=== PATIENT | male | born 1950 | race Caucasian/White ===

== ENCOUNTER 2023-11-19 20:53 | Emergency (ER) | payer OTHER, SELFPAY ==
[2023-11-19 20:56] VITALS: BP 108/62
[2023-11-19 20:57] VITALS: BP 108/62
[2023-11-19 21:05] VITALS: BMI 22.0
[2023-11-19 21:13] LABS: % Basophils 0.6 % (0-2); % Eosinophils 0.1 % (0-6); % Lymphocytes 17.6 % (20.5-51.1); % Monocytes 7.8 % (1.7-9.3); % Neutrophils 72.9 % (42.2-75.2); Absolute Basophils 0.1 10^3/uL (0-0.2); Absolute Immature Granulocytes 0.1 10^3/uL (0-0.05); Absolute Lymphocytes 1.8 10^3/uL (1.2-3.4); Absolute Monocytes 0.8 10^3/uL (0.1-0.6); Absolute Neutrophils 7.3 10^3/uL (1.4-6.5); Hematocrit 32.5 % (39.0-52.0); Hemoglobin 11.3 g/dL (13.0-18.0); Mean Corp Hgb Conc. 34.8 g/dL (33.0-37.0); Mean Platelet Volume 9.2 fL (7.4-10.4); Nucleated Red Blood Cells % 0 % (-); Platelet Count 564 10^3/uL (130-400); Red Blood Cell Count 3.42 10^6/uL (4.70-6.10); Red Cell Dist. Width 14.2 % (11.5-14.5); White Blood Cell Count 10.1 10^3/uL (4.8-10.8)
[2023-11-19 21:28] LABS: ALT (SGPT) 258 U/L (0-50); AST (SGOT) 140 U/L (17-59); Alkaline Phosphatase 519 U/L (38-126); Blood Urea Nitrogen 19 mg/dl (9-20); Calcium 9.4 mg/dl (8.4-10.2); Carbon Dioxide 29 mmol/L (22-30); Chloride 96 mmol/L (98-107); Estimated Creatinine Clearance 83 ml/min; Glucose 87 mg/dl (70-99); Sodium 132 mmol/L (135-145); Total Bilirubin 1.5 mg/dl (0.2-1.3); Total Protein 6.6 g/dl (6.3-8.2); eGFR > 60.00
[2023-11-19 21:44] VITALS: BP 104/71
--- NOTE | 2023-11-19 21:49 | ED.GENMED ---
History of Present Illness
General
Chief Complaint: Anal/Rectal Problem
Source: patient
Exam Limitations: none
Time Seen by Provider: 11/19/23 21:32
Travel History
Have you had any contact with someone who has COVID-19?: No
Do you have any symptoms of coronavirus? Fever > 100 degrees, chills, cough, shortness of breath, sore throat, loss of taste or smell, muscle aches, or headache?: No
History of Present Illness
History of Present Illness:
See MDM
Past History
Past History
ED Past Medical History: Cancer
ED Past Surgical History: Other (hernia)
Social History
Tobacco: Smoker
Alcohol: None
Phy Exam
Physical Exam
Physical Exam:
See MDM
Course
Orders/Labs/Results
Orders:
Orders
11/19/23 21:08
CMP [Comprehensive Metabolic Panel] Urgent
Complete Blood Count/With Diff Urgent
11/19/23 21:46
CT Abd/pelvis W Iv Cont Urgent
Comment:
Reason For Exam: rectal pain, constipated, active lung cancer
HYDROmorphone [Dilaudid] 0.5 mg IV NOW STA
Ketorolac [Toradol] 30 mg IV NOW STA
11/20/23 00:29
Ketorolac [Toradol] 15 mg IV NOW STA
Magnesium Citrate [Citroma] 300 ml PO ONCE ONE
11/20/23 00:30
Ketorolac [Toradol] 15 mg .ROUTE .STK-MED ONE
Magnesium Citrate [Citroma] 300 ml .ROUTE .STK-MED ONE
Abnormal Lab Results
11/19/23
21:08
RBC 3.42 L 10^6/uL
(4.70-6.10)
Hgb 11.3 L g/dL
(13.0-18.0)
Hct 32.5 L %
(39.0-52.0)
MCV 95.0 H fL
(80.0-94.0)
MCH 33.0 H pg
(27.0-31.0)
Plt Count 564 H 10^3/uL
(130-400)
Abs Immat Gran (auto) 0.1 H 10^3/uL
(0-0.05)
Absolute Neuts (auto) 7.3 H 10^3/uL
(1.4-6.5)
Absolute Monos (auto) 0.8 H 10^3/uL
(0.1-0.6)
Immature Gran % 1.0 H %
(0-0.5)
Lymphocytes % 17.6 L %
(20.5-51.1)
Sodium 132 L mmol/L
(135-145)
Chloride 96 L mmol/L
(98-107)
Total Bilirubin 1.5 H mg/dl
(0.2-1.3)
AST 140 H U/L
(17-59)
ALT 258 H U/L
(0-50)
Alkaline Phosphatase 519 H U/L
(38-126)
11/19/23 21:08
11/19/23 21:08
Vital Signs
Initial and Last Documented VS:
Initial Vital Signs
Pulse BP Pulse Ox
83 108/62 96
11/19/23 20:56 11/19/23 20:56 11/19/23 20:56
Last Documented Vital Signs
Temp Pulse Resp BP Pulse Ox
98.0 F 70 16 107/67 96
11/19/23 20:57 11/19/23 22:30 11/19/23 22:12 11/19/23 22:30 11/19/23 22:30
MDM/Problems Addressed
Differential Diagnosis Includes:
HPI and MDM Narrative:
73-year-old male presenting with rectal pain and intermittent constipation. He is currently on immunotherapy for active lung cancer. He is followed at [place]. Patient states the rectal pain has been going on 'for some while'. It appears to be
going on for months.
Rectal exam performed. No anal fissure. No stool in the rectal vault. Given his active cancer and his pain, will obtain CT
Physical exam
General: Weak and frail
HEENT: protecting airway
Neck: appears supple
CV: No evidence of cyanosis
Resp: No accessory muscle use
Abd: Non-distended and nontender
Rectal: No fissure. Mild small external hemorrhoids. No thrombosis. No stool palpated
Extremities: No deformities
Neuro: alert
Psych: Normal affect
Skin: Intact
Problems Addressed including Acute and Chronic Conditions affecting care:
1. Rectal pain
Acuity: acute
Prognosis: stable
Details: Likely in the setting of constipation from medication side effect. Given his active cancer, will obtain CT to rule out metastasis
2. Constipation
Acuity: acute
Prognosis: stable
Details: Will start magnesium citrate
Updates
CT negative for infectious or surgical pathology. There is constipation noted without evidence of stercoral colitis. Because the constipation appears to be in the ascending and transverse colon, enema will not help. Patient given dose of
magnesium citrate
Differential Diagnosis (but not limited to): Constipation, rectal abscess, metastasis
Testing considered: Abdominal x-ray
Drug therapy (if applicable): OTC meds, please see d/c instruction regarding Rx drugs
Amount and/or Complexity of Data Reviewed
Clinical info obtained from: Patient
External data reviewed: N/A
Labs I independently reviewed (but not limited to): White blood cell count normal, LFT elevation
Radiology: The CT scan was personally and independently reviewed. In addition, official CT report reviewed.
Pulse Ox: not hypoxic
EKG independently reviewed: N/A
Carton Wrapper: N/A
Critical Care: N/A
Risk of Complication:
Social Determinants of health: Good social support
Discussed with other providers: N/A
Escalation of Care includes Admit/Obs: After being observed in the Emergency Department, pt stable for discharge.
Occasional wrong word or 'sound a like' substitutions may have occurred due to the inherent limitations of voice recognition software. Read the chart carefully and recognize, using context, where substitutions have occurred.
*Critical Care Note
Total Time (30-74mins, 75-104mins- exclusive of procedures): Not Applicable
ED Attending Note
-
Portions of this chart may have been created with voice recognition software.� Occasional wrong word or��sound alike� substitutions may have occurred due to the inherent limitations of voice recognition software.
Discharge Plan
Departure
Patient Disposition: Home (Routine Discharge)
Date of Disposition: 11/20/23
Time of Disposition: 00:35
Patient with high blood pressure during this ER visit?: No
Discharge Problem:
Constipation
Instructions: Constipation, Adult (DC)
Prescriptions:
No Action
acetaminophen 325 MG tablet
650 mg PO Q4HPRN PRN (Reason: mild pain/RIVER/temp> 100.4F) 0RF
polyethylene glycol 3350 17 GRAMS powder in packet
17 grams PO DAILY 0RF
tamsulosin 0.4 MG capsule
0.4 mg PO DAILY Qty: 30 0RF
phenazopyridine 100 MG tablet
100 mg PO Q8 Qty: 90 0RF
sulfamethoxazole-trimethoprim 1 TABLET tablet
1 tab PO BID Qty: 22 0RF
Referrals:
NONE,* [Family Provider] -
Activity Restrictions/Additional Instructions:
Please return for any worsening symptoms.
You may return at any time if you have further concerns.
Please follow up with your doctor at the first available appointment, preferably this week.
If your constipation continues despite MiraLAX and magnesium citrate, please talk to your doctor about possibly starting lactulose.
Please increase your water intake.
Thank you for choosing [facility].
Interventions
Interventions:
*Risk Screen - Suicide Last Done: 11/19/23 21:05
*General Assessment Last Done: 11/19/23 21:05
*Neglect/Abuse Screening Last Done: 11/19/23 21:05
*ED COVID-19 Vaccine History Last Done: 11/19/23 21:05
OX-Hbbnpe-Ptygpbzztr Assessment Last Done: 11/19/23 21:06
ED-Skin Assessment Last Done: 11/19/23 21:06
[2023-11-19] MEDS: TORADOL 30 MG IV (21:58)
[2023-11-19 22:00] VITALS: BP 111/71
[2023-11-19] MEDS: DILAUDID 0.5 MG IV (22:00)
[2023-11-19 22:30] VITALS: BP 107/67
[2023-11-20] MEDS: CITROMA 300 ML PO (00:30)
[2023-11-20] MEDS: TORADOL 15 MG IV (00:30)
== END 2023-11-20 01:45 | disposition home or self-care (01) ==
LOC: EMR 20:53
PROVIDERS: EMERGENCY PHYSICIAN Student in an Organized Health Care Education/Training Program
DX: K59.00 Constipation, unspecified (principal); C34.90 Malignant neoplasm of unspecified part of unspecified bronchus or lung; F17.200 Nicotine dependence, unspecified, uncomplicated
CPT/HCPCS: 99284; 96374; 96375; 96376; 74177; 80053; 85025; Q9967

== ENCOUNTER 2023-11-20 11:49 | Emergency (ER) | payer OTHER, SELFPAY ==
[2023-11-20 11:52] VITALS: BP 120/67
--- NOTE | 2023-11-20 12:27 | ED.GENMED ---
History of Present Illness
General
Chief Complaint: Abdominal Pain
Source: patient
Time Seen by Provider: 11/20/23 12:10
Nursing documentation reviewed up to this point in time: agreed with
Travel History
Have you had any contact with someone who has COVID-19?: No
Do you have any symptoms of coronavirus? Fever > 100 degrees, chills, cough, shortness of breath, sore throat, loss of taste or smell, muscle aches, or headache?: No
History of Present Illness
History of Present Illness:
Patient is a 73-year-old male with terminal lung cancer currently receiving immunotherapy at [facility] presents to the ER for generalized pain. Patient is with family friend who is power of litigation attorney associate. Patient arrives stating that he simply' cannot
do it anymore.' Family member reports ever since he started immunotherapy he has had worsening generalized pain. He is treated at [facility] by . Pt was seen here last night for constipation
Past History
Past History
ED Past Medical History: Cancer
ED Past Surgical History: Other (hernia)
Social History
Tobacco: Smoker
Alcohol: None
Phy Exam
General Physical Exam
General Presentation: no apparent distress
General age: appears stated age
General Skin: warm and dry
General Habitus: normal
General Mental: alert
General Hydration: dry mucous membranes
Neurological Exam
Neurological Exam: alert and oriented x3
Musculoskeletal Exam
Musculoskeletal Exam: full ROM
Skin Exam
Skin Exam: normal color and warm/dry
Psychiatric Exam
Psychiatric Exam: other (flat affect )
Course
Orders/Labs/Results
Orders:
Orders
11/20/23 12:25
IV Insert/Care/Rem.- Treatment PRN
0.9% Sodium Chloride 1000 ml [Nss] 1,000 ml IV BOLUS
Morphine Sulfate 4 mg IV NOW STA
11/20/23 12:34
Complete Blood Count/With Diff Urgent
Comprehensive Metabolic Panel Urgent
11/20/23 14:09
Morphine Sulfate 4 mg .ROUTE .STK-MED ONE
11/20/23 14:18
Vital Signs- Treatment ONCE
Frequency: Once
11/20/23 14:21
Morphine Sulfate 4 mg IV NOW STA
11/20/23 16:13
Lorazepam [Ativan] 0.5 mg IV NOW STA
11/20/23 18:04
Morphine Sulfate 4 mg .ROUTE .STK-MED ONE
11/20/23 18:24
Morphine Sulfate 2 mg IV NOW STA
Abnormal Lab Results
11/20/23
12:34
WBC 12.0 H 10^3/uL
(4.8-10.8)
RBC 3.60 L 10^6/uL
(4.70-6.10)
Hgb 11.8 L g/dL
(13.0-18.0)
Hct 33.7 L %
(39.0-52.0)
MCH 32.8 H pg
(27.0-31.0)
Plt Count 588 H 10^3/uL
(130-400)
Abs Immat Gran (auto) 0.1 H 10^3/uL
(0-0.05)
Absolute Neuts (auto) 9.4 H 10^3/uL
(1.4-6.5)
Absolute Monos (auto) 0.9 H 10^3/uL
(0.1-0.6)
Immature Gran % 0.8 H %
(0-0.5)
Neutrophils % 78.4 H %
(42.2-75.2)
Lymphocytes % 12.8 L %
(20.5-51.1)
Sodium 128 L mmol/L
(135-145)
Chloride 97 L mmol/L
(98-107)
Total Bilirubin 1.9 H mg/dl
(0.2-1.3)
AST 129 H U/L
(17-59)
ALT 227 H U/L
(0-50)
Alkaline Phosphatase 511 H U/L
(38-126)
11/20/23 12:34
11/20/23 12:34
Vital Signs
Initial and Last Documented VS:
Initial Vital Signs
Temp Pulse Resp BP Pulse Ox
97.6 F 97 16 120/67 97
11/20/23 11:52 11/20/23 11:52 11/20/23 11:52 11/20/23 11:52 11/20/23 11:52
Last Documented Vital Signs
Temp Pulse Resp BP Pulse Ox
98.3 F 71 18 109/78 96
11/20/23 16:00 11/20/23 18:39 11/20/23 16:00 11/20/23 18:30 11/20/23 18:33
MDM/Problems Addressed
Differential Diagnosis Includes:
not limited to: Intractable pain
MDM/Problems Addressed:
Patient is a 73-year-old male with terminal lung cancer being treated at [facility] with immunotherapy presents to the ER complaining of generalized pain all over. Patient was seen here last night for constipation. Family at bedside who is power of
litigation attorney associate reports patient's had off-and-on pain and was hospitalized at [facility] recently. I spoke with Dr. Wilkins concrete analyst at [facility] who was able to pull up patient's chart. Patient was seen at [facility] November 17. He is aware of this
complaint of generalized pain however they do not have an obvious cause. They did put him on steroids recently and he is on 60 mg of prednisone daily for elevated LFTs which they thought were due to immune therapy.
Patient was seen here last night for constipation. CAT scan does show moderate to large amount of stool within the right colon and transverse colon no other acute findings. pt denies abd pain , simply complains of pain 'from my toes up.' He denies
headache/nausea /vomiting.
1415: Reevaluation patient continues to complain of pain does not feel that he can go home because of intractable pain. He wants to discuss hospice and wants no further treatment for cancer.
1425: I did receive a repeat phone call from Dr. Wilkins at [facility] who does request that he be admitted to [facility] for pain management and also continued evaluation of this pain possible myositis related to immunotherapy. Patient will be
transferred to the [facility]. to [facility].
1610: I spoke with [facility] pt accepted to general medicine floor under Dr Alvarenga. awaiting bed assignment
*Critical Care Note
Total Time (30-74mins, 75-104mins- exclusive of procedures): Not Applicable
ED Attending Note
-
Portions of this chart may have been created with voice recognition software.� Occasional wrong word or��sound alike� substitutions may have occurred due to the inherent limitations of voice recognition software.
Discharge Plan
Departure
Patient Disposition: Acute Care Hospital
Date of Disposition: 11/20/23
Time of Disposition: 18:22
Patient with high blood pressure during this ER visit?: Yes
Condition: Fair
Covid-19: Not Applicable
Discharge Problem:
intractable pain, Acute hyponatremia
Prescriptions:
No Action
sulfamethoxazole-trimethoprim [Bactrim DS] 800-160 mg Tablet
1 tab PO MOWEFR
Rx Instructions:
FOR 45 DAYS STARTING ON 11/17/23 PER VANNESSA FERNANDEZ
pantoprazole [Protonix] 40 mg Tablet,Delayed Release (Dr/Ec)
40 mg PO DAILY
hydrocortisone 10 mg Tablet
20 mg PO DAILY
Rx Instructions:
ON HOLD UNTIL PREDNISONE DOWN TO 5MG IN 20 DAYS
hydrocortisone 10 mg Tablet
10 mg PO DAILY@1300
Rx Instructions:
FROM HOLD ON 11/17/23, UNTIL [facility] DECREASE PREDNISONE DOWN 5 MG IN 20 DAYS
levothyroxine [Synthroid] 112 mcg Tablet
112 mcg PO DAILY
sodium chloride 1,000 mg Tablet,Soluble
1,000 mg PO TID
Anoro Ellipta 62.5-25 mcg/actuation Blister With Device
1 inh INHALATION R DAILY
prednisone 10 mg Tablet
60 mg PO DAILY
Rx Instructions:
FOR 20 DAYS STARTING ON 11/17/23 PER [facility] WILL DECREASE ON NEXT APPOINTMENT, HOLD HYDROCOTISONE
albuterol sulfate 2.5 mg /3 mL (0.083 %) Solution For Nebulization
2.5 mg INHALATION R Q4HPRN PRN (Reason: SOB)
gabapentin 400 mg Capsule
400 mg PO HS
gabapentin 100 mg Capsule
200 mg PO DAILY
Referrals:
NONE,* [Family Provider] -
Hospital Transfer
Other hospital: [facility]
I certify that the patient requires transfer: Yes
Discussed case with accepting physician: Dr Alvarenga
Reason for transfer: specialties available
Interventions
Interventions:
*Risk Screen - Suicide Last Done: 11/20/23 11:52
*General Assessment Last Done: 11/20/23 11:52
*Neglect/Abuse Screening Last Done: 11/20/23 11:52
ED- Fall Risk Assessment Last Done: 11/20/23 12:50
*ED COVID-19 Vaccine History Last Done: 11/20/23 12:47
CT-Gxwidx-Krmmreanrh Assessment Last Done: 11/20/23 12:47
[2023-11-20] MEDS: MORPHINE SULFATE 4 MG IV ×2 (12:39→14:24)
[2023-11-20] MEDS: NSS 1000 IV (12:40)
[2023-11-20 12:42] VITALS: BMI 21.9
[2023-11-20 12:47] VITALS: BP 117/62
[2023-11-20 12:48] LABS: % Basophils 0.4 % (0-2); % Eosinophils 0.2 % (0-6); % Immature Granulocytes 0.8 % (0-0.5); % Lymphocytes 12.8 % (20.5-51.1); % Monocytes 7.4 % (1.7-9.3); % Neutrophils 78.4 % (42.2-75.2); Absolute Basophils 0.1 10^3/uL (0-0.2); Absolute Immature Granulocytes 0.1 10^3/uL (0-0.05); Absolute Lymphocytes 1.5 10^3/uL (1.2-3.4); Absolute Monocytes 0.9 10^3/uL (0.1-0.6); Absolute Neutrophils 9.4 10^3/uL (1.4-6.5); Hematocrit 33.7 % (39.0-52.0); Hemoglobin 11.8 g/dL (13.0-18.0); Mean Corpuscular Hgb 32.8 pg (27.0-31.0); Mean Corpuscular Volume 93.6 fL (80.0-94.0); Mean Platelet Volume 9.1 fL (7.4-10.4); Nucleated Red Blood Cells % 0 % (-); Platelet Count 588 10^3/uL (130-400); Red Cell Dist. Width 13.7 % (11.5-14.5)
[2023-11-20 13:01] LABS: ALT (SGPT) 227 U/L (0-50); AST (SGOT) 129 U/L (17-59); Albumin 3.8 g/dl (3.5-5.0); Alkaline Phosphatase 511 U/L (38-126); Blood Urea Nitrogen 18 mg/dl (9-20); Carbon Dioxide 24 mmol/L (22-30); Chloride 97 mmol/L (98-107); Estimated Creatinine Clearance 95 ml/min; Glucose 76 mg/dl (70-99); Potassium 4.1 mmol/L (3.5-5.1); Sodium 128 mmol/L (135-145); Total Bilirubin 1.9 mg/dl (0.2-1.3); Total Protein 6.4 g/dl (6.3-8.2); eGFR > 60.00
[2023-11-20 14:27] VITALS: BP 125/70
--- NOTE | 2023-11-20 16:08 | PHANOTE ---
MED REC NOTE- UNABLE TO FIND ECW RECORDS PATIENT USING VANNESSA FERNANDEZ, FRIEND ON FILE I CALLED AND SHE DROVE TO PATIENT HOUSE TO GET DISCHARGE PAPERWORK FROM 11/17/23, DISCHARGE PAPERWORK LIPITOR WAS STOP ON 11/17/23, HYDROCORTISONE IS ON HOLD UNTIL
PREDNISONE IS DECREASED TO 5MG IN 20 DAYS WHEN VANNESSA FERNANDEZ FOLLOW UP APPOINTMENT.
[2023-11-20] MEDS: ATIVAN 0.5 MG IV (16:25)
[2023-11-20 16:50] VITALS: BP 127/89
[2023-11-20 18:30] VITALS: BP 109/78
[2023-11-20] MEDS: MORPHINE SULFATE 2 MG IV (18:34)
== END 2023-11-20 19:10 | disposition short-term general hospital (02) ==
LOC: EMR 11:49
PROVIDERS: Nurse Practitioner; EMERGENCY PHYSICIAN Emergency Medicine
DX: R52 Pain, unspecified (principal); E87.1 Hypo-osmolality and hyponatremia; C34.90 Malignant neoplasm of unspecified part of unspecified bronchus or lung; F17.200 Nicotine dependence, unspecified, uncomplicated
CPT/HCPCS: 99283; 96374; 96375; 96376; 96361; 80053; 85025

== ENCOUNTER → 2023-12-20 07:40 | Outpatient (REF) | payer OTHER, SELFPAY | LOC: EMG 07:40 | PROVIDERS: ATTENDING PHYSICIAN Nurse Practitioner Adult Health; FAMILY PHYSICIAN Physician Assistant | DX: G56.02 Carpal tunnel syndrome, left upper limb (principal); G62.9 Polyneuropathy, unspecified; R20.0 Anesthesia of skin | CPT/HCPCS: 95886; 95913 ==

== ENCOUNTER 2023-12-21 17:16 | Emergency (ER) | payer OTHER, SELFPAY ==
[2023-12-21 17:27] VITALS: BP 126/79
[2023-12-21 17:55] LABS: % Basophils 0.2 % (0-2); % Eosinophils 0.1 % (0-6); % Immature Granulocytes 4.1 % (0-0.5); % Lymphocytes 9.7 % (20.5-51.1); % Monocytes 3.6 % (1.7-9.3); % Neutrophils 82.3 % (42.2-75.2); Absolute Immature Granulocytes 0.5 10^3/uL (0-0.05); Absolute Lymphocytes 1.2 10^3/uL (1.2-3.4); Absolute Monocytes 0.5 10^3/uL (0.1-0.6); Absolute Neutrophils 10.3 10^3/uL (1.4-6.5); Hematocrit 35.5 % (39.0-52.0); Hemoglobin 12.2 g/dL (13.0-18.0); Mean Corp Hgb Conc. 34.4 g/dL (33.0-37.0); Mean Corpuscular Hgb 33.1 pg (27.0-31.0); Mean Corpuscular Volume 96.2 fL (80.0-94.0); Mean Platelet Volume 8.5 fL (7.4-10.4); Nucleated Red Blood Cells % 0 % (-); Platelet Count 378 10^3/uL (130-400); Red Blood Cell Count 3.69 10^6/uL (4.70-6.10); Red Cell Dist. Width 14.3 % (11.5-14.5); White Blood Cell Count 12.5 10^3/uL (4.8-10.8)
[2023-12-21 18:17] LABS: ALT (SGPT) 19 U/L (0-50); AST (SGOT) 27 U/L (17-59); Albumin 4.1 g/dl (3.5-5.0); Alkaline Phosphatase 72 U/L (38-126); Blood Urea Nitrogen 21 mg/dl (9-20); Calcium 9.9 mg/dl (8.4-10.2); Carbon Dioxide 29 mmol/L (22-30); Chloride 100 mmol/L (98-107); Glucose 106 mg/dl (70-99); Potassium 4.6 mmol/L (3.5-5.1); Sodium 135 mmol/L (135-145); Total Bilirubin 0.6 mg/dl (0.2-1.3); Total Protein 6.7 g/dl (6.3-8.2); eGFR > 60.00
--- NOTE | 2023-12-21 19:13 | ED.GENMED ---
History of Present Illness
General
Chief Complaint: Dizziness
Source: patient
Exam Limitations: none
Time Seen by Provider: 12/21/23 18:52
Nursing documentation reviewed up to this point in time: agreed with
Travel History
Have you had any contact with someone who has COVID-19?: No
Do you have any symptoms of coronavirus? Fever > 100 degrees, chills, cough, shortness of breath, sore throat, loss of taste or smell, muscle aches, or headache?: No
History of Present Illness
History of Present Illness:
73-year-old mal with past medical history of COPD, melanoma with lung metastasis (follows at [facility]), hypothyroidism who presents to the emergency room for evaluation of shortness of breath, coughing, wheezing. Patient reports
onset of symptoms a week ago and have been constant and progressive since then. Coughing seems to be worse at night. He reports symptoms are not improving despite using Mucinex at home as well as regular home nebulizer treatments. He reports
congestion in his chest but denies any chest pain�describes a sensation of phlegm that he cannot expectorate. He denies any fevers or chills. Has not noticed any edema in his extremities. He also reports occasional lightheadedness over the past
week. He denies any other complaints. Notably he has been on a prolonged steroid taper for COPD he says today was his first day at the taper dose of 20 mg.
Past History
Past History
ED Past Medical History: Cancer
ED Past Surgical History: Other (hernia)
Social History
Tobacco: Smoker
Alcohol: None
Review of Systems
Review of Systems
All Other Systems: ROS reviewed and negative except as documented in HPI and ROS
Constitutional: Denies fever or chills
EENT: Denies sore throat or runny nose
Respiratory: Reports cough and trouble breathing
Cardiac: Denies chest pain or palpitations
ABD/GI: Denies abdominal pain, nausea or vomiting
: Denies flank pain
Musculoskeletal: Denies edema, neck pain or back pain
Neurological: Reports dizzy; Denies headache, weakness or numbness
Phy Exam
Physical Exam
Physical Exam:
General: Awake, alert, oriented x3; no acute distress
Head: Normocephalic, atraumatic
Eyes: Conjunctiva normal, EOMI
Throat: Airway intact, handling secretions
Neck: Trachea midline, supple without meningismus
Lungs: Normal respiratory rate and work of breathing, normal pulse ox on room air; there is diffuse bilateral wheezing and frequent hacking cough
Heart: Regular rate and rhythm, no murmurs, gallops, or rubs appreciated
Abd: Soft, non distended, nontender
Neuro: Cranial nerves grossly intact, speech fluid
Skin: no rash
Extremities: No edema in extremities, equal pulses in all extremities
Scores
Heart Failure Risk
Heart Failure Risk Score: Not Applicable
Heart Score for Chest Pain Patients
STEMI patient?: Not applicable
Withdrawal Assessment of Alcohol
Withdrawal Assessment Completed?: Not applicable
Course
Orders/Labs/Results
Orders:
Orders
12/21/23 17:27
Electrocardiogram (*1) Urgent
Reason for Study: Fatigue / Weakness
12/21/23 17:28
EKG- Treatment ONCE
12/21/23 17:50
Complete Blood Count/With Diff Urgent
Comprehensive Metabolic Panel Urgent
12/21/23 19:09
CR Chest - 2 Views Urgent
Comment:
Reason For Exam: sob
12/21/23 19:10
Ipratropium/Albuterol Sulfate [Duoneb] 3 ml INH R NOW STA
Prednisone [Deltasone] 30 mg PO NOW STA
Abnormal Lab Results
12/21/23
17:50
WBC 12.5 H 10^3/uL
(4.8-10.8)
RBC 3.69 L 10^6/uL
(4.70-6.10)
Hgb 12.2 L g/dL
(13.0-18.0)
Hct 35.5 L %
(39.0-52.0)
MCV 96.2 H fL
(80.0-94.0)
MCH 33.1 H pg
(27.0-31.0)
Abs Immat Gran (auto) 0.5 H 10^3/uL
(0-0.05)
Absolute Neuts (auto) 10.3 H 10^3/uL
(1.4-6.5)
Immature Gran % 4.1 H %
(0-0.5)
Neutrophils % 82.3 H %
(42.2-75.2)
Lymphocytes % 9.7 L %
(20.5-51.1)
BUN 21 H mg/dl
(9-20)
Creatinine 0.6 L mg/dL
(0.7-1.3)
Glucose 106 H mg/dl
(70-99)
12/21/23 17:50
12/21/23 17:50
Vital Signs
Initial and Last Documented VS:
Initial Vital Signs
Temp Pulse Resp BP Pulse Ox
36.4 C 95 18 126/79 94
12/21/23 17:27 12/21/23 17:27 12/21/23 17:27 12/21/23 17:27 12/21/23 17:27
Last Documented Vital Signs
Temp Pulse Resp BP Pulse Ox
36.4 C 95 18 126/79 97
12/21/23 17:27 12/21/23 17:27 12/21/23 17:27 12/21/23 17:27 12/21/23 19:57
MDM/Problems Addressed
Differential Diagnosis Includes:
COPD exacerbation, pneumonia, bronchitis, anemia, pneumothorax
MDM/Problems Addressed:
73-year-old male presents with cough, wheezing, shortness of breath, occasional lightheadedness over the past week. Vital signs normal, exam as above. Plan to place an IV check labs including a CBC and a CMP. Check a chest x-ray and EKG. Will
treat with a DuoNeb and provide additional steroid-he has been on steroids for COPD but tapering down. Will monitor closely reassess after the above.
Initial labs reviewed: CBC shows slight leukocytosis to 12.5 in the setting of known steroid use, stable anemia. CMP no clinically significant abnormalities. Awaiting results of chest x-ray.
Chest x-ray reviewed by me shows no pneumonia or pneumothorax or other acute pathology. Clinical reassessment after treatment here patient feeling better, wheezing improved. I spoke to his hematology/oncology physician at [place]�patient has
been on steroid taper for recent adverse reaction to immunotherapy. Okay with increasing steroids over the next few days and tapering back down to 20 mg daily. Patient is comfortable this plan. He wishes to be discharged at this point, does not
feel he needs to stay in the hospital; his respiratory rate, saturation on room air, work of breathing are all acceptable and he has had significant improvement in his wheezing on exam. I think he is stable for discharge with close outpatient
follow-up with plan to increase steroids as above. Spoke about return precautions all questions answered.
Chronic conditions affecting care:
COPD
*Radiology
Radiology exam reviewed: preliminary read by ED provider and radiology read reviewed
*Pulse Oximetry
Patient hypoxic: no
*EKG
Interpreted by ED Provider?: Yes
Heart Rate: 84
Rate: normal
Rhythm: sinus and PAC's
[place]: normal axis
Interval: normal interval
QRS Pattern: normal QRS
Ischemia: no ischemia
*Critical Care Note
Total Time (30-74mins, 75-104mins- exclusive of procedures): Not Applicable
Data Reviewed
Review of Other/Old Records Reveals: Labs and Records
Source: patient and records
ED Attending Note
-
Portions of this chart may have been created with voice recognition software.� Occasional wrong word or��sound alike� substitutions may have occurred due to the inherent limitations of voice recognition software.
Discharge Plan
Departure
Patient Disposition: Home (Routine Discharge)
Date of Disposition: 12/21/23
Time of Disposition: 20:26
Patient with high blood pressure during this ER visit?: No
Discharge Problem:
COPD exacerbation
Instructions: COPD Exacerbation, Adult ED
Prescriptions:
New
prednisone 10 mg tablet
10 mg PO DIRECTED Qty: 36 0RF
Rx Instructions:
Take 50 mg x3 days, 40 mg x 3 day, 30 mg x 3 day, then resume prior taper
No Action
sulfamethoxazole-trimethoprim [Bactrim DS] 800-160 mg Tablet
1 tab PO MOWEFR
Rx Instructions:
FOR 45 DAYS STARTING ON 11/17/23 PER VANNESSA FERNANDEZ
pantoprazole [Protonix] 40 mg Tablet,Delayed Release (Dr/Ec)
40 mg PO DAILY
hydrocortisone 10 mg Tablet
20 mg PO DAILY
Rx Instructions:
ON HOLD UNTIL PREDNISONE DOWN TO 5MG IN 20 DAYS
hydrocortisone 10 mg Tablet
10 mg PO DAILY@1300
Rx Instructions:
FROM HOLD ON 11/17/23, UNTIL VANNESSA FERNANDEZ DECREASE PREDNISONE DOWN 5 MG IN 20 DAYS
levothyroxine [Synthroid] 112 mcg Tablet
112 mcg PO DAILY
sodium chloride 1,000 mg Tablet,Soluble
1,000 mg PO TID
Anoro Ellipta 62.5-25 mcg/actuation Blister With Device
1 inh INHALATION R DAILY
prednisone 10 mg Tablet
60 mg PO DAILY
Rx Instructions:
FOR 20 DAYS STARTING ON 11/17/23 PER VANNESSA FERNANDEZ WILL DECREASE ON NEXT APPOINTMENT, HOLD HYDROCOTISONE
albuterol sulfate 2.5 mg /3 mL (0.083 %) Solution For Nebulization
2.5 mg INHALATION R Q4HPRN PRN (Reason: SOB)
gabapentin 400 mg Capsule
400 mg PO HS
gabapentin 100 mg Capsule
200 mg PO DAILY
Referrals:
UNKNOWN - PT NOT,INTERVIEWE [Family Provider] -
Activity Restrictions/Additional Instructions:
Thank you for visiting the Emergency Department at [facility].
1. Please schedule a follow up appointment as directed. Call first thing tomorrow morning to make an appointment.
2. If indicated, please take your medications as instructed and indicated on discharge paperwork.
3. If any of your symptoms do not improve, or persist, or become more severe within 6-12 hours, please return to the emergency department for further care.
4. Please return to the emergency department if you develop a headache, neck pain/stiffness, fever greater than 100.4F, chest pain, shortness of breath, persistent nausea, vomiting, slurred speech, difficulty walking, numbness/tingling, weakness,
signs of infection or any other symptoms that are worrisome to you.
Please call [phone] if you have any questions.
Interventions
Interventions:
*Risk Screen - Suicide Last Done: 12/21/23 17:27
*General Assessment Last Done: 12/21/23 17:27
*Neglect/Abuse Screening Last Done: 12/21/23 17:27
*ED COVID-19 Vaccine History Last Done: 12/21/23 18:33
ED- Neurological Assessment Last Done: 12/21/23 19:54
ED- Cardiac Assessment Last Done: 12/21/23 19:55
Discharge Date and Time
Print Language: TELUGU
[2023-12-21] MEDS: DUONEB 3 ML INH (19:48)
[2023-12-21] MEDS: DELTASONE PO (19:49)
[2023-12-21 19:52] VITALS: BP 124/85
[2023-12-21 20:00] VITALS: BP 136/86
[2023-12-21] MEDS: DELTASONE 30 MG PO (20:29)
== END 2023-12-21 20:49 | disposition home or self-care (01) ==
LOC: EMR 17:16
PROVIDERS: EMERGENCY PHYSICIAN Emergency Medicine
DX: J44.1 Chronic obstructive pulmonary disease with (acute) exacerbation (principal); F17.200 Nicotine dependence, unspecified, uncomplicated; E03.9 Hypothyroidism, unspecified
CPT/HCPCS: 99285; 94640; 71046; 80053; 85025; 93005

== ENCOUNTER 2024-03-04 05:45 | Inpatient (IN) | payer OTHER, SELFPAY ==
[2024-03-04] VITALS (15 sets, daily range): BP systolic 98–155; BP diastolic 56–90; BMI 24.6; BMI 25.4
--- NOTE | 2024-03-04 02:45 | EDRN ---
Addendum entered by Stefany Alfonso RN 03/04/24 05:04:
visitor at bedside is not patient's . she reports she is his friend of 30 years and she helps with his physical care. she reports pt has other friends to help with medications, getting around, and doctors appointments.
Original Note:
patient reports that pt was recently d/c from [facility] 2 days ago. per pt was there for lung ca treatment, needed to be admitted ICU there for alcohol withdrawal and was there for 30 days. no alcohol since d/c
[2024-03-04 02:53] LABS: % Basophils 0.4 % (0-2); % Eosinophils 0.1 % (0-6); % Immature Granulocytes 0.5 % (0-0.5); % Monocytes 3.9 % (1.7-9.3); % Neutrophils 76.1 % (42.2-75.2); Absolute Lymphocytes 1.5 10^3/uL (1.2-3.4); Absolute Monocytes 0.3 10^3/uL (0.1-0.6); Absolute Neutrophils 5.8 10^3/uL (1.4-6.5); Hematocrit 30.7 % (39.0-52.0); Hemoglobin 10.5 g/dL (13.0-18.0); Mean Corp Hgb Conc. 34.2 g/dL (33.0-37.0); Mean Corpuscular Hgb 31.7 pg (27.0-31.0); Mean Corpuscular Volume 92.7 fL (80.0-94.0); Mean Platelet Volume 9.9 fL (7.4-10.4); Nucleated Red Blood Cells % 0 % (-); Platelet Count 297 10^3/uL (130-400); Red Blood Cell Count 3.31 10^6/uL (4.70-6.10); Red Cell Dist. Width 13.1 % (11.5-14.5); White Blood Cell Count 7.6 10^3/uL (4.8-10.8)
[2024-03-04 03:16] LABS: ALT (SGPT) 14 U/L (0-50); AST (SGOT) 28 U/L (17-59); Albumin 4.1 g/dl (3.5-5.0); Blood Urea Nitrogen 14 mg/dl (9-20); Carbon Dioxide 26 mmol/L (22-30); Estimated Creatinine Clearance 68 ml/min; Glucose 195 mg/dl (70-99); Total Bilirubin 0.4 mg/dl (0.2-1.3); Total Protein 6.5 g/dl (6.3-8.2); eGFR > 60.00
[2024-03-04 03:18] LABS: COVID-19 Antigen Negative (Negative)
[2024-03-04 03:19] LABS: NT-proBNP 1290 pg/ml; Troponin I < 0.012 ng/ml
--- NOTE | 2024-03-04 03:24 | ED.GENMED ---
History of Present Illness
General
Chief Complaint: Breathing Problem
Source: patient, spouse and previous hospital records (Previous ED visit November of this year for COPD exacerbation)
Exam Limitations: none
Time Seen by Provider: 03/04/24 02:48
Nursing documentation reviewed up to this point in time: agreed with
History of Present Illness
History of Present Illness:
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
with lengthy course of oral steroids. He states prednisone was eventually titrated down and discontinued.
He does continue to smoke, currently vapes nicotine and apparently has issues with alcohol and was recently hospitalized at [facility] for 29 days for treatment of alcohol withdrawal syndrome. Discharged just 2 days ago and according to he has
remained sober over the past 2 days.
He have history of COPD, maintained on maintenance inhalers and uses albuterol nebulizer several times per day.
Currently on oral hydrocortisone 20 mg in the a.m., 10 mg in the afternoon.
Patient states he required supplemental oxygen for few days during initial hospital stay but oxygen was weaned to off and his pulse ox is generally in the mid to high 90s on room air.
Tonight however he got up out of bed to go to the bathroom and while walking to the bathroom developed significant headache as well as significant bilateral arm pain along with shortness of breath and was noted to be significantly hypoxic with
initial room air pulse ox in the 70s. With sitting and resting his pulse ox improved to the 80s.
He does report intermittent dry cough that is chronic and unchanged. He denies fever nor chills. He does note very mild bilateral lower extremity edema primarily ankles and feet but denies leg pain.
Pulse ox upon arrival 86%, has improved to 93/95% on 4 L nasal cannula.
Past History
Past History
ED Past Medical History: Cancer (Lung cancer), COPD, GERD and Other (Alcohol abuse/tobacco abuse)
ED Past Surgical History: Other (hernia)
Social History
Tobacco: Smoker
Alcohol: Chronic alcoholic
Drug: None
Personal:
Living: with family
Employment: Retired
Family History
Family History: Other (Noncontributory)
Phy Exam
Physical Exam
Physical Exam:
GENERAL: 73-year-old gentleman appears somewhat older than stated age, awake and alert, pleasant, appears in very mild distress. Mild resting tachypnea. Able to speak in full sentences. Nasal cannula oxygen in place. is accompanying.
EYE: anicteric
NECK: Supple, nontender, no meningismus, no significant adenopathy.
ENT: oral mucosa is moist. No rhinorrhea.
CARDIAC: Regular rhythm, mildly tachycardic at 110, no murmur.
LUNGS: Mild resting tachypnea, Rales right anterior lung jackson as well as mild Rales noted right lower lobe, otherwise clear to auscultation.
ABDOMEN: Soft, nondistended, without focal tenderness, normoactive BS.
NEUROLOGICAL: Alert and oriented x3, no focal neuro deficits.
SKIN: Warm and dry, normal color, skin intact. No rash.
MUSCULOSKELETAL: No clubbing or cyanosis. Trace pretibial edema bilateral lower legs. Peripheral pulses are full and equal b/l. No palpable tenderness.
PSYCH: Normal and appropriate interaction.
Scores
Heart Failure Risk
Heart Failure Risk Score: Yes
History of Stroke or TIA: No
History of intubation for respiratory distress: No
Heart rate on ED arrival >/= 110: Yes
SaO2 <90% on arrival on room air: Yes
HR >/=110 during 3min walk test (or too ill to perform test): Yes
ECG has acute ischemic changes: No
Urea >/=12mmol/L (BUN 33.6mg/dL): No
Serum CO2>/=35mmol/L: No
Troponin I or T elevated to [place] Level (0.4mg/dL): No
NT-proBNP >/=5,000ng/L (5,000pg/ml): No
HF Risk Score: 3
Admission Status: HIGH RISK 15.9% Consider SNF treatment or admission to hospital
Course
Orders/Labs/Results
Orders:
Orders
03/04/24 02:32
Electrocardiogram (*1) Urgent
Reason for Study: Other
Other Reason for Exam: Respiratory Distress
Cardiac Monitoring- Treatment ONCE
EKG- Treatment ONCE
IV Insert/Care/Rem.- Treatment PRN
CR Chest - 2 Views Urgent
Comment:
Reason For Exam: respiratory distress
O2 Therapy [RESP] Urgent
Titrate/Wean O2 to maintain O2 sat greater than (%): 93
Special Instructions: TO MAINTAIN CONTINUOUS O2 SATS >/= 93%
Pulse Ox/cont/shift [RESP] Urgent
Quantity: 1
Special Instructions: continuous pulse ox
03/04/24 02:36
Alcohol Urgent
COVID-19 Antigen Urgent
Source: Nasal Swab
Complete Blood Count/With Diff Urgent
Comprehensive Metabolic Panel Urgent
NT-proBNP Urgent
Troponin I Urgent
Influenza A+B Rapid Molecular Urgent
ALETHA Source: Nasal Swab
Specimen Description:
03/04/24 03:24
CT Chest Pe Study Urgent
Comment:
Reason For Exam: acute hypoxia, tachycardia
03/04/24 03:28
Lactic Acid Urgent
Blood Culture Urgent
ALETHA Source: Blood/Venous
Specimen Description:
03/04/24 04:19
Lorazepam [Ativan] 2 mg .ROUTE .STK-MED ONE
03/04/24 04:21
Lorazepam [Ativan] 0.5 mg IV NOW STA
03/04/24 04:30
0.9% Sodium Chloride 1000 ml [Nss] 2,300 ml IV NOW STA
Piperacillin/Tazo 4.5 Gram [Zosyn] 4.5 gram in 100 ml IV NOW
03/04/24 04:31
Lorazepam [Ativan] 2 mg .ROUTE .STK-MED ONE
03/04/24 04:33
Lorazepam [Ativan] 0.5 mg IV NOW STA
03/04/24 04:43
Add On- LAB Urgent
Tests Added?: alcohol
03/04/24 04:46
Acetaminophen 1000MG/100Ml [Ofirmev] 1,000 mg in 100 ml .ROUTE .STK-MED
03/04/24 04:49
Acetaminophen 1000MG/100Ml [Ofirmev] 1,000 mg IV NOW STA
Ipratropium/Albuterol Sulfate [Duoneb] 3 ml INH R NOW STA
03/04/24 05:30
Admit/Transfer Patient As Directed
Co-Sign Provider:
Level of Care: Inpatient admission
Assign to:: IMU- Intermediate Care
Physician / Group: [email or web address]
Diagnosis: Severe sepsis probably due to PNA/ acute hypoxic RF/ Lung CA
Reason for Hospitalization: Severe sepsis probably due to PNA/ acute hypoxic RF/ Lung CA
Expected length of stay greater than two midnights?: Yes
ELOS- Estimated Length of Stay in days: 5
I certify the patient meets the requirements for IP care: Yes
03/04/24 05:33
Code Status As Directed
Resuscitation Status: Full Code
03/04/24 Breakfast
Cholesterol Lowering
Cholesterol Lowering: Sodium, 2 Gram
Procalcitonin IN AM
PCT Algorithmm Indication: Sepsis
Flush (0.9% Sodium Chloride) [Flush (Nss)] See Dose Instructions IV PER PROTOCOL
03/04/24 06:13
Lactic Acid Q4H
Comment: repeat q4 hours x 4 or until less than 2 mmol/L
0.9% Sodium Chloride [Nss (Preservative Free)] See Protocol IV PRN PRN
Acetaminophen [Tylenol/Feverall] 650 mg RECTAL Q4HPRN PRN
Acetaminophen [Tylenol] 650 mg PO Q4HPRN PRN
Albuterol Nebs [Ventolin Nebules] 2.5 mg INH R Q4HPRN PRN
FOLic ACID [Folvite] 1 mg 0.9% Sodium Chloride 50 ml [Nss] 50 ml IV DAILYPRN
Lactated Ringers [Lr] 1,000 ml IV 80 mls/hr
Loperamide [Imodium] 2 mg PO QID PRN
Lorazepam [Ativan] 1 mg IV Q1HPRN PRN
Lorazepam [Ativan] 1 mg PO Q2HPRN PRN
Lorazepam [Ativan] 2 mg IV Q1HPRN PRN
Piperacillin/Tazo 3.375 Gram [Zosyn] 3.375 gram in 50 ml IV Q6H
03/04/24 06:13
Case Management Consult Once
Case Management Consult: Other
Comment: Substance abuse counseling
Consult Notification Routine
Specialty to Notify: Infectious Disease
DIETARY CONSULT Routine
Reason for Consult: Nutrition support, possible refeeding guidelines
INFECTIOUS DISEASE CONSULT Routine
Consulting Provider: Ade Canales
Was physician already notified: No
Reason for consult: Severe sepsis probably due to PNA/ acute hypoxic RF/ Lung CA
Urine Drug Abuse Screen Routine
Activity As Directed
Activity Level: Out of Bed-Early Mobility
Activity As Directed
Activity Level: With Assistance
Intake/ Output As Directed
Frequency: Per unit guidelines
Intake/ Output As Directed
Frequency: q12h
MSAS SCORE As Directed
MSAS Score 0-4: Repeat MSAS every 2 hours until 0-4 for three consecutive assessments, then every 4 hours x 48
hours.
MSAS Score 5-7: For MILD withdrawl symptoms. Repeat MSAS and RASS every 2 hours
MSAS Score 8-11: For MODERATE withdrawal symptoms. Repeat MSAS and RASS every 1 hour. Consider ICU or IMU
level of care.
MSAS Score > 11: For SEVERE withdrawal symptoms. Repeat MSAS and RASS every 1 hour. Notify provider, consider
ICU level of care.
MSAS Additional Instructions: If no improvement or no decrease in score from severe to moderate within 12
hours, consult psychiatry
MSAS Notify Provider: Notify provider if patient requires more than 10 mg of Lorazepam in eight hour period.
Obtain Records As Directed
Dates of Information to be Released: 02/08/24
Type of Information Requested: Discharge Summary
Vital Signs As Directed
Frequency: Per unit guidelines
Vital Signs As Directed
Frequency: Per unit guidelines
Weight As Directed
Frequency: Daily
Weight As Directed
Frequency: Once
Comment: on admission
Pt Eval And Treat Routine
Activity Level: With Assistance
DX Deep Vein Thrombosis Video Routine
03/04/24 08:00
FOLic ACID [Folvite] 1 mg PO DAILY
Gabapentin [Neurontin] 300 mg PO BID
Hydrocortisone [Cortef] 20 mg PO DAILY
Levothyroxine [Synthroid] 112 mcg PO DAILY
Pantoprazole [Protonix] 40 mg PO DAILY
Thiamine Injection 200 mg IV Q12
fluticasone furoate 1 inh INH DAILY
magnesium oxide 420 mg PO DAILY
umeclidinium-vilanterol [Anoro Ellipta] 1 inh INH R DAILY
03/04/24 10:13
Lactic Acid Q4H
Comment: repeat q4 hours x 4 or until less than 2 mmol/L
03/04/24 13:00
Hydrocortisone [Cortef] 10 mg PO DAILY@1300
03/04/24 14:13
Lactic Acid Q4H
Comment: repeat q4 hours x 4 or until less than 2 mmol/L
03/04/24 18:00
Enoxaparin Sodium [Lovenox] 40 mg SC QPM
03/04/24 18:13
Lactic Acid Q4H
Comment: repeat q4 hours x 4 or until less than 2 mmol/L
03/05/24 06:00
Complete Blood Count/With Diff IN AM
Comprehensive Metabolic Panel IN AM
03/07/24 08:00
Thiamine HCl [Vitamin B1] 100 mg PO BID
Abnormal Lab Results
03/04/24 03/04/24
02:36 03:28
RBC 3.31 L 10^6/uL
(4.70-6.10)
Hgb 10.5 L g/dL
(13.0-18.0)
Hct 30.7 L %
(39.0-52.0)
MCH 31.7 H pg
(27.0-31.0)
Neutrophils % 76.1 H %
(42.2-75.2)
Lymphocytes % 19.0 L %
(20.5-51.1)
Glucose 195 H mg/dl
(70-99)
Lactic Acid 3.0 H mmol/L
(0.7-2.0)
03/04/24 02:36
03/04/24 02:36
Vital Signs
Initial and Last Documented VS:
Initial Vital Signs
Temp Pulse Resp BP Pulse Ox
97.8 F 116 28 129/75 86
03/04/24 02:22 03/04/24 02:22 03/04/24 02:22 03/04/24 02:22 03/04/24 02:22
Last Documented Vital Signs
Temp Pulse Resp BP Pulse Ox
98.4 F 127 30 151/79 98
03/04/24 06:20 03/04/24 05:30 03/04/24 05:30 03/04/24 05:30 03/04/24 05:30
MDM/Problems Addressed
Differential Diagnosis Includes:
Acute hypoxic respiratory failure, concern for healthcare associated pneumonia, exacerbation of COPD. Due to recent lengthy hospitalization, tachycardia and hypoxia must also consider PE.
With significant hypoxia and complaints of bilateral arm pain while ambulating to the bathroom, must consider ACS.
Currently comfortable and pain-free at rest with nasal cannula oxygen in place.
Chronically maintained on steroids, must consider potential for adrenal insufficiency
Chronic conditions affecting care: COPD, Immunosuppressed, Cancer (Lung cancer) and Other (Recent lengthy hospitalization for alcohol withdrawal, discharged 2 days ago.)
*Radiology
Radiology exam reviewed: preliminary read by ED provider (Chest x-ray shows right middle lobe infiltrate which is new compared to previous film November 2023)
*Pulse Oximetry
Patient hypoxic: yes
*EKG
Interpreted by ED Provider?: Yes
Comparison EKG: changes noted (Unchanged from previous November 2023 save her heart rate has increased from 84 to now 112)
Rate: tachycardiac
Rhythm: sinus
Dunlap: normal axis
Interval: normal interval
QRS Pattern: normal QRS
Ischemia: no ischemia
*Scrap Breaker Interpretation
Rate: tachycardiac
Interpretation: abnormal
Rhythm: sinus
*Critical Care Note
Total Time (30-74mins, 75-104mins- exclusive of procedures): 35
comment:
Critical care statement: A total of 35 minutes of critical care time was provided for this patient. This includes management of unstable vital signs, evaluation of the patient at bedside, reviewing the patient's pertinent medical records, discussion
with consultants, review of old EKGs and review of pertinent medical records. This time with separate from time utilized to perform the aforementioned documented procedures
Update Note
Update Note:
Patient noted to be moderately tremulous and feels hot to touch, concern for acute rigors. Other consideration is alcohol withdrawal however with discharge from hospital just 2 days ago, recurrent alcohol withdrawal is much less likely.
Lactic acid is elevated at 3.0. Troponin is negative. BNP elevated at 1200 but chest x-ray consistent with right middle lobe pneumonia, no evidence of CHF.
He continues with sinus tachycardia but blood pressure remains stable.
He has been given IV Ativan for potential withdrawal, IV fluid bolus initiated as well as IV Zosyn for coverage of healthcare associated pneumonia.
Will give DuoNeb nebulizer and IV Tylenol.
Will admit to hospitalist service, ICU.
Awaiting CT angio of the chest.
ED Attending Note
-
Portions of this chart may have been created with voice recognition software.� Occasional wrong word or��sound alike� substitutions may have occurred due to the inherent limitations of voice recognition software.
Discharge Plan
Departure
Patient Disposition: Admit
Date of Disposition: 03/04/24
Time of Disposition: 05:02
Admit to: ICU
Admit to doctor: Esperanza
Presentation/result/management discussed w/ accepting MD/DO: Hospitalist
Condition: Serious
Discharge Problem:
HCAP (healthcare-associated pneumonia), Acute hypoxemic respiratory failure, SIRS (systemic inflammatory response syndrome), Acute lactic acidosis
Interventions
Interventions:
*Risk Screen - Suicide Last Done: 03/04/24 02:22
*General Assessment Last Done: 03/04/24 02:22
*Neglect/Abuse Screening Last Done: 03/04/24 02:22
*Nursing Disposition Last Done: 03/04/24 06:20
ED- Cardiac Assessment Last Done: 03/04/24 02:46
ED- Pulmonary Assessment Last Done: 03/04/24 02:46
Discharge Date and Time
Discharge Date/Time: 03/04/24 06:22
[2024-03-04 03:28] LABS: Calcium 9.2 mg/dl (8.4-10.2); Chloride 106 mmol/L (98-107); Sodium 141 mmol/L (135-145)
[2024-03-04] MEDS: ATIVAN 0.5 MG IV ×2 (04:21→04:34)
[2024-03-04] MEDS: NSS 2300 ML IV (04:34)
[2024-03-04] MEDS: DUONEB 3 ML INH (04:51)
[2024-03-04] MEDS: OFIRMEV 1000 MG IV (04:51)
[2024-03-04 05:05] LABS: Alcohol None Detected; Alkaline Phosphatase 61 U/L (38-126)
--- NOTE | 2024-03-04 05:23 | HPS.HSE ---
Family Physician
-
Family Physician: CÉSAR Castorena
Chief Complaint
-
POx 70 on RA, SoB
History of Present Illness
HPI
73M current smoker, ETOH use disorder HX COPD, Known to [facility] for HX Ca lung, postponed immunotherapy since August due to myositis, associated pain syndrome presumed ADES of immuno therapy s/p steroids Tx since August due to ADEs. Recently he
was admitted to [facility] for 29 days due to ETOH WDS. He was DC'd 2 days ago .
He came to ER for evaluation of RIVER, SoB and noted POX was 70s% on RA.
POx upon arrival was 86%, has improved to 93/95% on 4 L nasal cannula.
ROS
Chronic Intermittent cough - unchanged
Denied fevr and chills
Medical History
Past Medical History
Past Medical History: Reports Other
Additional Past Medical History:
Cancer (Lung cancer), COPD, GERD and Other (Alcohol abuse/tobacco abuse)
Past Surgical History: Reports Other (hernia repair )
Additional Past Surgical History:
hernia repair
Social History
Tobacco: Smoker
Alcohol: Chronic Alcoholic
Drug: None
Personal:
Living: With Family
Family History
Family History: Not pertinent
Allergies / Home Medications
Allergies reflects when Allergies were last updated in [employer].
Home Medications with original date entered in [employer]
Allergy/Medication List:
Allergies
Allergy/AdvReac Type Severity Reaction Status Date / Time
No Known Allergies Allergy Verified 03/04/24 02:22
Home Medications
albuterol sulfate 2.5 mg/3 mL (0.083 %) solution for nebulization 2.5 mg inhalation R Q4HPRN PRN SOB 11/20/23
hydrocortisone 10 mg tablet 10 mg PO DAILY@1300 11/20/23
hydrocortisone 10 mg tablet 20 mg PO DAILY 11/20/23
levothyroxine 112 mcg tablet (Synthroid) 112 mcg PO DAILY 11/20/23
pantoprazole 40 mg tablet,delayed release (Protonix) 40 mg PO DAILY 11/20/23
umeclidinium 62.5 mcg-vilanterol 25 mcg/actuation powdr for inhalation (Anoro Ellipta) 1 inh inhalation R DAILY 11/20/23
fluticasone furoate 100 mcg/actuation blister powder for inhalation 1 inh inhalation DAILY 03/04/24
gabapentin 300 mg capsule 300 mg PO BID 03/04/24
loperamide 2 mg capsule 2 mg PO QID PRN diarrhea 03/04/24
magnesium oxide 420 mg tablet 420 mg PO DAILY 03/04/24
thiamine HCl (vitamin B1) 100 mg tablet 100 mg PO DAILY 03/04/24
Review of Systems
-
Constitutional: Reports No Symptoms
EENT: Reports No Symptoms
Cardiac: Reports No Symptoms and See HPI
Abdomen/GI: Reports No Symptoms
: Reports No Symptoms
Musculoskeletal: Reports No Symptoms
Skin: Reports No Symptoms
Neurological: Reports No Symptoms
Endocrine: Reports No Symptoms
Hematologic/Lymphatic: Reports No Symptoms
Psych: Reports No Symptoms
Physical Exam
Vital Signs
Vital Signs
Temp Pulse Resp BP Pulse Ox
97.8 F 116 26 126/90 99
03/04/24 02:22 03/04/24 05:00 03/04/24 05:00 03/04/24 05:00 03/04/24 05:00
Physical Exam
General: Comfortable and Other (sleeping s/p ativan ); No Conversant
HEENT: NormoCephalic and Anicteric
Respiratory: Non Labored Respirations and Other (limited exam )
Cardiac: S1/S2 and Tachycardia
GI: Soft, Non Tender, Non Distended and Normal Bowel Sounds
Rectal: Deferred by Provider
Genito-urinary: Deferred by me
Musculoskeletal: No Edema
Skin: Warm and Dry; No Rash
Neuro: Other (sleeping s/p ativan )
Laboratory Results
-
03/04/24 02:36
03/04/24 02:36
Laboratory Results
Lactic Acid 3.0 mmol/L (0.7-2.0) H 03/04/24 03:28
Total Bilirubin 0.4 mg/dl (0.2-1.3) 03/04/24 02:36
AST 28 U/L (17-59) 03/04/24 02:36
ALT 14 U/L (0-50) 03/04/24 02:36
Alkaline Phosphatase 61 U/L (38-126) 03/04/24 02:36
Troponin I < 0.012 ng/ml 03/04/24 02:36
Data Reviewed
-
Diagnostic Radiology: Report Reviewed by me
Lab Data: Labs Reviewed by me
Old Records: Reviewed
Impression/Plan
-
Reviewed VS: Afebrile tachypneic RR 33 Tachycardic 130s BP 155/78 POx 94
Data
nl WCC
Hgb 10.5 - baseline 11-12
Unremarkable CMP
BG 195
LA 3
Unremarkable LFTs
NEG TPNI
proBNP 1290
Pending ETOH
NEG Covid NEG Flu A & B
BCx sent
EKG report:
SINUS TACHYCARDIA
CANNOT RULE OUT INFERIOR INFARCT , AGE UNDETERMINED
ABNORMAL ECG
WHEN COMPARED WITH ECG OF 21-DEC-2023 17:35,
PREMATURE ATRIAL COMPLEXES ARE NO LONGER PRESENT
NONSPECIFIC T WAVE ABNORMALITY NOW EVIDENT IN INFERIOR LEADS
CXR my view; suspect PNA at Rt ML
Pending CTC PE study
Last hospitalist admission: 07/16/20 - 07/18/20
Primary DX:
1. Sepsis and hematuria due to right ureterovesical junction obstructing stone, status post right ureteroscopy, laser
lithotripsy and basket extraction of the stone with a right JJ stent placement.
2. Bacteremia due to E coli.
ASSESSMENT & PLAN
Pending Rx reconciliation
Severe sepsis probably due to PNA at RML presumed HAP
Associated with acute hypoxic respiratory failure.
Currently comfortable and pain-free at rest with nasal cannula oxygen in place.
- Pending CTC PE study
- check PCT syn
- LR IVF in place of NS
- Empiric Zosyn
- BCx sent
- O2 supplement to keep POx > 93
- ID and Pul consult
HX Ca lung
Postponed immunotherapy since August due to myositis, associated pain syndrome presumed ADES of immunoRx s/p S/p prolonged course of steroids
- cont Gabapentin
- Current smoker
- Obtain records for [facility]
HX ETOH use disorder
Recently he was admitted to [facility] for 29 days due to ETOH WDS. He was DC'd 2 days ago .
- denied recent use of ETOH
- MSAS protocol and observe
HX COPD
- not on home O2
- add DuoNeb PRN
Hypothyroid: on LT4
DVT Px: LMWH
Code: Full code
IMU
[2024-03-04] MEDS: ZOSYN 100 IV (05:38)
[2024-03-04 07:15] LABS: Amphetamines Negative (Negative); Barbiturates Negative (Negative); Benzodiazepines Negative (Negative); Buprenorphine Negative (Negative); Cocaine Negative (Negative); Marijuana Positive (Negative); Methadone Negative (Negative); Methamphetamines Negative (Negative); Opiates Negative (Negative); Phencyclidine Negative (Negative); Tricyclic Antidepressants Negative (Negative)
[2024-03-04] MEDS: FLOVENT 44 MCG INHALER 2 PUFF INH ×2 (07:20→17:31)
[2024-03-04] MEDS: SPIRIVA RESPIMAT 2.5 MCG 2 PUFF INH (07:20)
[2024-03-04] MEDS: STRIVERDI RESPIMAT 2 PUFF INH (07:21)
[2024-03-04] MEDS: LR 1000 IV ×2 (07:35→20:11)
--- NOTE | 2024-03-04 08:10 | CON.ID ---
Consultation
-
Date/Time Consultation Requested: 03/04/24 6:13
Date/Time Consultation Performed: 03/04/24 8:11
Requesting Provider: Dr Mata
Performing Provider: Dr Canales
Reason for Consultation: Severe sepsis probably due to PNA/ acute hypoxic RF/ Lung CA
Chief Complaint / Past History
Chief Complaint
hypoxemia outpatient
History of Present Illness
Mr Chance is a 73 year old male with history of Lung Cancer (postponed immunotherapy since Aug due to myositis, on prednisone tpaer - unclear dose, hydrocortisone), COPD no on O2, current smoker, EtOH use disorder who presented here last night
for shortness of breath, outpatient pulse ox at 70% on room air. Has a chronic cough which is reportedly unchanged. No fevers or chills. Of note he was just discharged from [facility] after recent admission for EtOH withdrawal. Not responding
appropriately to questions, will only say 'quiet,' to me. History obtained by chart review.
Since arrival here he has been afebrile, bp stable, persistent tachycardia noted, tachypnea to the 20s, wbc 7.6, hgb 10.5, plt 297, L shift is noted, cr 1.0, lactic acid 3.0, t bili 0.4, ast 28, alt 14, alk pohs 61, bnp 1290, procalc sent and is
pending, UDS notable for THC , covid ag neg, CTA; no PE, diffuse infiltrates in the r lung, a single blood culture sent, sputum culture not yet ordered, flu swab negative, currently on zosyn. ID is consulted for assistance with management.
Past History
Additional Past Medical History:
Cancer (Lung cancer), COPD, GERD and Other (Alcohol abuse/tobacco abuse)
Additional Past Surgical History:
(hernia repair )
Allergy History:
No Known Allergies Allergy (Verified 03/04/24 02:22)
Medications Reviewed: Yes
Social History
Tobacco: Smoker
Alcohol: Chronic Alcoholic
Drug: None
Family History
Family History: Not Pertinent
Review of Systems
Review of Systems
General: Negative Fever or Chills
All systems: All other systems were reviewed and were negative
Vital Signs
Temp Pulse Resp BP Pulse Ox
98.4 F 110 22 151/79 93
03/04/24 06:20 03/04/24 07:27 03/04/24 07:27 03/04/24 05:30 03/04/24 07:27
Physical Exam
Physical Exam
Constitutional: Chronically Ill
Cardiovascular: Irregular Rate and S1/S2; Negative Murmur or Rub
Pulmonary: Clear and Symmetric; Negative Wheezes, Rales or Rhonchi
Gastrointestinal: Soft, Non Tender, Non Distended and Normal Bowel Sounds
Skin: Warm and Dry; Negative Rash or Jaundice
Lab / Diagnostic Study Results
03/04/24 02:36
03/04/24 02:36
Abs Immat Gran (auto) 0.0 10^3/uL (0-0.05) 03/04/24 02:36
Absolute Neuts (auto) 5.8 10^3/uL (1.4-6.5) 03/04/24 02:36
Absolute Lymphs (auto) 1.5 10^3/uL (1.2-3.4) 03/04/24 02:36
Absolute Monos (auto) 0.3 10^3/uL (0.1-0.6) 03/04/24 02:36
Absolute Basos (auto) 0.0 10^3/uL (0-0.2) 03/04/24 02:36
Immature Gran % 0.5 % (0-0.5) 03/04/24 02:36
Neutrophils % 76.1 % (42.2-75.2) H 03/04/24 02:36
Lymphocytes % 19.0 % (20.5-51.1) L 03/04/24 02:36
Monocytes % 3.9 % (1.7-9.3) 03/04/24 02:36
Eosinophils % 0.1 % (0-6) 03/04/24 02:36
Basophils % 0.4 % (0-2) 03/04/24 02:36
Lactic Acid 3.0 mmol/L (0.7-2.0) H 03/04/24 03:28
Microbiology Results
Micro:
03/04/24 03:28 Blood Culture - Pending
Blood/Venous
03/04/24 02:36 Influenza Types A & B (ALESSANDRA) - Final
Nasal Swab Negative for Influenza A & B, NAAT
Negative results must be combined with clinical observations
and patient history.
Nucleic Acid Amplification test (NAAT)performed on the
[employer] platform.
Assessment / Plan
Pulmonary Infiltrate
Lung Cancer
History of adverse drug reaction to immunotherapy
On outpatient steroids
- sputum culture if able to obtain one
- a single blood culture has been sent, if there is a fever over 100.5 orally then would send a second set, otherwise no further blood cultures indicated at this time
- covid/influenza negative
- agree with checking procalcitonin if negative then would stop antibiotics
- steroid management per primary team
- can continue zosyn at this moment, add doxycycline while following clinically, low threshold to stop antibiotics
- follow clinically
[2024-03-04 08:25] LABS: Lactic Acid 2.5 mmol/L (0.7-2.0)
[2024-03-04 08:43] LABS: Procalcitonin 0.66 ng/ml (0.0-0.25)
[2024-03-04] MEDS: THIAMINE INJECTION 200 MG IV ×2 (10:36→21:02)
[2024-03-04] MEDS: ATIVAN 1 MG PO (11:04)
[2024-03-04] MEDS: CORTEF 20 MG PO (11:05)
[2024-03-04] MEDS: SYNTHROID 112 MCG PO (11:05)
[2024-03-04] MEDS: PROTONIX 40 MG PO (11:06)
--- NOTE | 2024-03-04 11:10 | PTCARENOTE ---
pt awake, asking for bedpan and urinal. noted to have been incontinent when turned; then used urinal and voided 300ml. limited movement of upper and lower limbs. tachycardic to 130 with turning. pox dropping to 88% on 4L nc, increased to 6L and pox
recovering to 94%. resp rate 30 and markedly tremulous. MSAS 6. 1 mg po ativan given. pt swallowed with water without difficulty. oriented x 3. calm and answering simple questions appropriately with somewhat garbled speech. bed alarm activated. bed
in lowest position. continuing to closely monitor.
[2024-03-04] MEDS: ZOSYN 50 IV ×3 (12:04→23:42)
[2024-03-04 13:11] LABS: Lactic Acid 2.9 mmol/L (0.7-2.0)
--- NOTE | 2024-03-04 14:03 | CM ---
Consult received for substance abuse counseling. Called TROY Whitt) who advised he was busy and would call me back.
Will follow.
--- NOTE | 2024-03-04 14:04 | CM ---
Consult received for substance abuse counseling. Called TROY Whitt) who advised he was busy and would call me back.
Will follow.
[2024-03-04] MEDS: CORTEF 10 MG PO (14:49)
[2024-03-04] MEDS: FOLVITE 1 MG PO (14:49)
[2024-03-04] MEDS: VIBRAMYCIN 100 MG PO ×2 (14:49→21:01)
[2024-03-04] MEDS: NEURONTIN PO (14:49)
[2024-03-04] MEDS: TYLENOL 650 MG PO (15:25)
--- NOTE | 2024-03-04 15:26 | PTCARENOTE ---
MSAS 7 at this time; heart rate >120, pt mildly diaphoretic with tremors. ativan not appropriate at this time; RASS-2. pt is awakening briefly to ask for water and to tell me he has a headache, but then falls back to sleep. oral tylenol given for
headache in applesauce; pt falling asleep with pill in his mouth. continuing to monitor
--- NOTE | 2024-03-04 15:26 | W.PN.UPDATE ---
Update Note
Progress Note Update
Presenting with RIVER and SOB
Hypoxic to 70% on arrival to ED, increasing o2 demends
arf with hypoxia, possibly pna, procal pending. id following, continue antibiotics. pulm consulted as o2 requiriements are increasing
lung ca follows at [facility] currently not on treatment, immunotherapy postponed due to myositis
alcohol use disorder contineu thimaine and folate. ciwa/minds protocol.
copd maintain spo2 >88%-92%. continue mdi. no bronchospasms noted.
cxr
Diffuse interstitial and airspace opacity is demonstrated throughout the right hemithorax, most pronounced in the right mid to lower lung zone, consistent with pneumonia. Possible subtle infiltrate versus atelectasis at the left lung base.
ct chest
IMPRESSION:
Limited by motion degradation. No evidence of pulmonary embolism with confidence to the lobar level.
Diffuse pneumonia throughout the right lung. Mild right hilar adenopathy.
The examination was performed after-hours on an emergency basis, with initial preliminary interpretation provided by [facility].
[2024-03-04] MEDS: LOVENOX 40 MG SC (17:29)
[2024-03-04] MEDS: MAGNESIUM OXIDE 500 MG PO (17:30)
[2024-03-04 18:00] LABS: Lactic Acid 2.7 mmol/L (0.7-2.0)
--- NOTE | 2024-03-04 18:27 | PTCARENOTE ---
pt more alert and awake. speaking more clearly. complaining of 'pain all over', mostly hips and joints. heart rate improved to 1 teens. pox 96% on O2 6L nasal canula. He states he has neuropathy in both hands. Requiring to be fed; unable to bend
fingers. Swallowing without difficulty. continuing to monitor
[2024-03-04] MEDS: NEURONTIN 300 MG PO (21:01)
[2024-03-04 21:16] LABS: Lactic Acid 1.9 mmol/L (0.7-2.0)
[2024-03-05] VITALS (12 sets, daily range): BP systolic 99–138; BP diastolic 67–88; PULSE 101–110; O2SAT 95; BMI 25.7
[2024-03-05] MEDS: LR 1000 IV ×2 (05:13→17:33)
[2024-03-05] MEDS: SYNTHROID 112 MCG PO (05:14)
[2024-03-05] MEDS: ZOSYN 50 IV ×4 (05:14→23:53)
[2024-03-05 05:23] LABS: Hematocrit 29.5 % (39.0-52.0); Hemoglobin 9.9 g/dL (13.0-18.0); Mean Corp Hgb Conc. 33.6 g/dL (33.0-37.0); Mean Corpuscular Hgb 31.5 pg (27.0-31.0); Mean Corpuscular Volume 93.9 fL (80.0-94.0); Mean Platelet Volume 10.4 fL (7.4-10.4); Platelet Count 264 10^3/uL (130-400); Red Blood Cell Count 3.14 10^6/uL (4.70-6.10); Red Cell Dist. Width 13.2 % (11.5-14.5); White Blood Cell Count 16.9 10^3/uL (4.8-10.8)
[2024-03-05 06:00] LABS: ALT (SGPT) 11 U/L (0-50); AST (SGOT) 23 U/L (17-59); Albumin 2.8 g/dl (3.5-5.0); Alkaline Phosphatase 59 U/L (38-126); Blood Urea Nitrogen 17 mg/dl (9-20); Calcium 8.2 mg/dl (8.4-10.2); Carbon Dioxide 27 mmol/L (22-30); Chloride 105 mmol/L (98-107); Estimated Creatinine Clearance 55 ml/min; Glucose 89 mg/dl (70-99); Potassium 4.1 mmol/L (3.5-5.1); Sodium 139 mmol/L (135-145); Total Bilirubin 0.4 mg/dl (0.2-1.3); Total Protein 4.9 g/dl (6.3-8.2); eGFR > 60.00
--- NOTE | 2024-03-05 06:19 | CON.PUL ---
Consultation
Consultation Request
Date/Time Consultation Requested: 03/04
Date/Time Consultation Performed: 03/05
Reason for Consultation: Hypoxia
Medical History
-
History of Present Illness:
History obtained from the chart, reviewing hospital records and reviewing outpatient records. Patient is a 73-year-old male with complex medical history including metastatic melanoma treated at [facility]. Patient also has been on immunotherapy,
complicated by myositis requiring steroids in the past. He was recently discharged from [facility], hospitalized for 1 month. He cannot recall the details but had respiratory issues in the beginning but cannot recall the details at the end of his
hospital stay, although medical records suggest he was hospitalized for alcohol withdrawal. He is not on oxygen therapy at home. He felt well yesterday, walk through the grocery store without difficulty, usually walks with a cane. He woke up at
1:00 in the morning, felt shortness of breath, general aches, headache, chest pain, arm pain, and called the ambulance. Upon arrival to [facility], afebrile, pulse 116, breathing at 28, blood pressure 129/75, 86%. ED records suggest the
saturation was in the 70s when ambulance arrived. Per ED, patient had mild tachypnea with crackles at the right base. CT chest was obtained to rule out PE. Patient was given antibiotics, IV fluids, Ativan, nebulized therapy and admitted to for
hypoxia, possible pneumonia. This morning, patient states he is feeling 'much better'.
He denies difficulty swallowing or choking, nausea, emesis, falls however not sure how accurate his history is.
During my evaluation, patient is not forthcoming. He denied any smoking, vaping, marijuana, alcohol. He states he lives alone. However medical records suggest that he continues to vape, smoke and drink alcohol and apparently lives with his .
.
PMH: History of melanoma metastatic to the chest wall. He specifically denied lung cancer. History of COPD, GERD, hernia repair, thyroid disease, kidney stones. Outpatient records suggest heme positive stool in the past
Past Medical History
Past Medical History: None (See above)
Past Surgical History: None ( see above)
Social History
Tobacco: Smoker (Has [id number] history of smoking, likely ongoing although patient denies. Also vapes)
Alcohol: Chronic Alcoholic (Records suggest alcoholism although patient denied it to me. He was apparently recently hospitalized at [facility] for alcohol withdrawal)
Drug: None
Personal: Single (Radha� apparently many years ago. She was an alcoholic?)
Living: Alone
Employment: Employed (Still works, has been working with [employer] for 40+ years)
Family History
Family History: Other (Father at 48, mother at 84. He cannot recall details. He has 2 siblings who , unclear reasons. He does not keep in touch with his children)
Allergies / Home Medications
Allergies
Allergy/AdvReac Type Severity Reaction Status Date / Time
No Known Allergies Allergy Verified 03/04/24 02:22
Home Medications
�Medication �Instructions �Recorded �Confirmed �Last Taken �Type
albuterol sulfate 2.5 mg/3 mL 2.5 mg inhalation R Q4HPRN PRN SOB 11/20/23 03/04/24 Unknown History
(0.083 %) solution for nebulization
hydrocortisone 10 mg tablet 10 mg PO DAILY@1300 11/20/23 03/04/24 Unknown History
Anti-Inflammatory
hydrocortisone 10 mg tablet 20 mg PO DAILY Anti-Inflammatory 11/20/23 03/04/24 Unknown History
levothyroxine 112 mcg tablet 112 mcg PO DAILY Thyroid 11/20/23 03/04/24 Unknown History
(Synthroid)
pantoprazole 40 mg tablet,delayed 40 mg PO DAILY Gastrointestinal 11/20/23 03/04/24 Unknown History
release (Protonix) Issue
umeclidinium 62.5 mcg-vilanterol 1 inh inhalation R DAILY 11/20/23 03/04/24 Unknown History
25 mcg/actuation powdr for Lung/Breathing Issues
inhalation (Anoro Ellipta)
fluticasone furoate 100 1 inh inhalation DAILY 03/04/24 03/04/24 Unknown History
mcg/actuation blister powder for Lung/Breathing Issues
inhalation
gabapentin 300 mg capsule 300 mg PO BID Neurological 03/04/24 03/04/24 Unknown History
Condition
loperamide 2 mg capsule 2 mg PO QID PRN diarrhea 03/04/24 03/04/24 Unknown History
magnesium oxide 420 mg tablet 420 mg PO DAILY Electrolyte 03/04/24 03/04/24 Unknown History
Repletion
thiamine HCl (vitamin B1) 100 mg 100 mg PO DAILY Supplement 03/04/24 03/04/24 Unknown History
tablet
Review of Systems
-
All other systems: Negative unless noted
Vitals / Labs / Diagnostic Testing
Vital Signs
Temp Pulse Resp BP Pulse Ox
98.3 F 89 21 127/88 100
03/05/24 03:33 03/05/24 06:01 03/05/24 06:01 03/05/24 04:00 03/05/24 06:01
Lab Data
03/05/24 04:28
03/05/24 04:28
Microbiology
03/04/24 03:28 Blood/Venous Blood Culture - Preliminary
No Growth in 24 hours- Final report to follow
03/04/24 02:36 Nasal Swab Influenza Types A & B (ALESSANDRA) - Final
Negative for Influenza A & B, NAAT
Negative results must be combined with clinical observations
and patient history.
Nucleic Acid Amplification test (NAAT)performed on the
[employer] platform.
Diagnostic Testing:
Physical Exam
-
HEENT: Normocephalic, Anicteric and Other (Poor dentition)
Cardiovascular: S1/S2, Regular Rhythm (Tachycardic), Murmur (n), Rub (n), Peripheral Edema (Trace edema right greater than left) and Calf Tenderness (n)
Respiratory: Wheeze (n), Rales (Crackles throughout right lung), Rhonchi (n) and Non-Labored Respirations
GI: Soft, Non Distended and Non Tender
Neurology: Awake, Alert, Oriented, No Motor Deficits (Able to sit up without assistance) and Tremors (Tremulous)
Skin: Other (No clubbing, cyanosis)
General: Comfortable (Conversant)
Assessment
-
73-year-old male with complex medical history including metastatic melanoma, status postsurgical resection on immunotherapy, held due to recent myositis requiring steroids, COPD, possible adrenal insufficiency, hypothyroidism with recent prolonged
hospital stay at [facility] for 1 month thought to be due to respiratory illness and alcohol withdrawal although I cannot confirm this. Patient now admitted for hypoxic respiratory insufficiency, saturation in the 70s, found to have extensive
right-sided pneumonia.
Acute hypoxic respiratory insufficiency
70% at home, currently on nasal cannula
Extensive right-sided infiltrate
Reticular thickening, groundglass changes.
No honeycomb changes
Mild COPD exacerbation
No wheezing on exam at this time
Anemia
Elevated lactate
Sinus tachycardia
Conditions present prior to admission
History of metastatic melanoma, diagnosed March 2022
Lymph node involvement status post lymphadenectomy, chest wall resection
Immunotherapy in the past, now held
Complicated by myositis
History of SIADH
Follows endocrine at [facility]
Positive DOUG, cytoplasmic pattern
Hypothyroidism
Chronic neuropathy on gabapentin
Secondary to immunotherapy. Follows neurology
GERD
Chronic alcohol use (patient denies)
Suspected occupational exposure history
Swimming pools, cement dust, chlorine
Possible copper, chromium, arsenic, lead exposure
Elevated arsenic/lead levels in the past
[id number] history of smoking (patient states he quit 2021)
Suspected ongoing vaping
Plan/recommendations
At this time, patient with complex medical history. Unfortunately most of his medical care is at [facility]
Seems that his primary complaint is paresthesias involving his arms and legs. He sees neurology for this. He is on gabapentin dosing, despite increasing dosing has worsening symptoms.
Presently is 98% on 6 L.
I find it hard to believe that he has not required home oxygen
Some of his findings on his CT imaging suggest chronic scarring on the right side, although imaging from October 2023 and abdominal imaging did not reveal any interstitial process at the base
Moving forward
Suspect acute infectious pneumonitis vs inflammatory process, aspiration event
Patient has been on immunotherapy in the past, but per records has not been treated with this due to complications of myositis. Has been on steroids, and possibly complicated by adrenal insufficiency. Sees endocrinology at [facility], also treated
for thyroid disease and SIADH
Presently on Zosyn/doxycycline. Will continue this
Given elevated lactate, sinus tachycardia, will treat for infectious process especially given recent prolonged hospital stay
Aspiration pneumonitis also possibility, patient is not a good historian
Doubt occupational cause of his interstitial process as he had imaging in the last year which did not show any interstitial process
This may also be due to vaping induced interstitial disease. Although he denied it to me, records suggest he continues to smoke and vape
Doubt significant COPD component as he is not wheezing although he has significantly flattened diaphragms on x-ray in the past
Continue with outpatient hydrocortisone dosing
Primary issue, however is likely alcohol withdrawal
Patient is tremulous during my evaluation
Continue with thiamine/folic acid and follow closely for withdrawal symptoms, continue MSAS protocol
There are some outpatient records that suggest patient has been referred to palliative care although not sure if this is in the plan
DVT prophylaxis: Patient high risk. Continue with enoxaparin
GI prophylaxis: Continue with Protonix, especially given alcohol history
Remains high risk situation. Will continue to follow
[2024-03-05 06:26] LABS: Absolute Neutrophils -Man Diff 13.3 10^3/uL (1.4-6.5); Band Neutrophils 17 % (0-3); Eosinophils 1 % (0-6); Lymphocytes 14 % (20-51); Monocytes 6 % (2-9); Platelets Checked Yes; Segmented Neutrophils 62 % (42-75)
[2024-03-05 06:27] LABS: Anisocytosis 1+; Hypochromasia Slight; Normal RBC Morphology No; Total Cells Counted 100
[2024-03-05] MEDS: SPIRIVA RESPIMAT 2.5 MCG 2 PUFF INH (07:18)
[2024-03-05] MEDS: STRIVERDI RESPIMAT 2 PUFF INH (07:18)
[2024-03-05] MEDS: FLOVENT 44 MCG INHALER 2 PUFF INH ×2 (07:18→17:43)
[2024-03-05] MEDS: MAGNESIUM OXIDE 500 MG PO (08:12)
[2024-03-05] MEDS: CORTEF 20 MG PO (08:12)
[2024-03-05] MEDS: VIBRAMYCIN 100 MG PO ×2 (08:12→19:35)
[2024-03-05] MEDS: PROTONIX 40 MG PO (08:13)
[2024-03-05] MEDS: THIAMINE INJECTION 200 MG IV ×2 (08:13→19:35)
[2024-03-05] MEDS: NEURONTIN 300 MG PO ×2 (08:13→19:35)
[2024-03-05] MEDS: FOLVITE 1 MG PO (08:13)
[2024-03-05] MEDS: TYLENOL 650 MG PO ×2 (08:13→17:30)
--- NOTE | 2024-03-05 09:55 | W.PN.ID1 ---
Date of Service
Date of Service: March 05, 2024
Today's Communication
- procal mildly elevated, there is new onset leukocytosis with a L shift - will continue zosyn/doxycycline for now
Assessment / Plan
Pulmonary Infiltrate
Lung Cancer
History of adverse drug reaction to immunotherapy
On outpatient steroids
- sputum culture if able to obtain one
- a single blood culture has been sent, if there is a fever over 100.5 orally then would send a second set, otherwise no further blood cultures indicated at this time
- covid/influenza negative
- remains on home dose of steroids
- procal mildly elevated, there is new onset leukocytosis with a L shift - will continue zosyn/doxycycline for now
- follow clinically
Chief Complaint
-: Other (Pneumonitis)
Subjective / Review of Systems
afebrile
bp stable
leukocytosis today - new, remains on his home dose of steroids
cr on arrival 1.0 now 1.2
a mrsa screen has been sent - pending
procal 0.6
has not yet produced a sputum
more alert today - denies coughing only endorsing sneezing occasionally, unclear how reliable a historian he is
Vital Signs / Physical Exam
Vital Signs
Vital Signs
Temp Pulse Resp BP Pulse Ox
97.5 F 107 14 127/88 97
03/05/24 07:00 03/05/24 07:24 03/05/24 07:24 03/05/24 04:00 03/05/24 07:24
Physical Exam
Constitutional: No Acute Distress and Chronically Ill
Cardiovascular: Regular Rate and S1/S2; Negative Murmur or Rub
Pulmonary: Clear and Symmetric; Negative Wheezes or Rales
Gastrointestinal: Soft, Non Tender, Non Distended and Normal Bowel Sounds
Skin: Warm and Dry; Negative Rash or Jaundice
Neurological: Awake
Objective Data
Lab Data
Lab Results
03/05/24 04:28
03/05/24 04:28
Estimated Creat Clear 55 ml/min 03/05/24 04:28
Lactic Acid 1.9 mmol/L (0.7-2.0) 03/04/24 20:58
Total Bilirubin 0.4 mg/dl (0.2-1.3) 03/05/24 04:28
AST 23 U/L (17-59) 03/05/24 04:28
ALT 11 U/L (0-50) 03/05/24 04:28
Alkaline Phosphatase 59 U/L (38-126) 03/05/24 04:28
Most recent labs reviewed.
Micro Results:
03/04/24 03:28 Blood Culture - Preliminary
Blood/Venous No Growth in 24 hours- Final report to follow
03/04/24 17:23 MRSA Screen - Pending
Nose
03/04/24 02:36 Influenza Types A & B (ALESSANDRA) - Final
Nasal Swab Negative for Influenza A & B, NAAT
Negative results must be combined with clinical observations
and patient history.
Nucleic Acid Amplification test (NAAT)performed on the
[employer] platform.
Care Review
Plan reviewed with: Physician (Dr Matthew- continue abx)
[2024-03-05] MEDS: CORTEF 10 MG PO (13:53)
--- NOTE | 2024-03-05 14:04 | W.PN.HOSP.TC ---
Today's Communication/Plan
-
Continue to follow ID recommendation
Continue IV antibiotics
Continue monitor CIWA protocol
Continue as needed benzos
Continue thiamine folate
Wean oxygen as tolerated
Assessment / Plan
Assessment / Plan
NAD, tremulous
Scleral anicteric
MMM
No JVD
S1/s2, rrr
CTABL
soft nt nd bs+
aaox3, able to transfer from bed to chair
Acute respiratory failure with hypoxia.
�Elevating white count Pro-Willian 0.66.
�Discussed with ID.
�Will continue antibiotics at this time.
�Wean oxygen as tolerated.
Lung cancer follows at [facility]
-Currently not on treatment as immunotherapy postponed due to myositis.
Alcohol use disorder for which now he states he does not drink alcohol
-He is tremulous without anxiety agitation tachycardia to suspect a high CIWA score and minds protocol would be low.
-Continue as needed benzos.
-Continue thiamine folate
COPD, without exacerbation as he has no bronchospasms on exam
�Maintain SpO2 greater than-88 to 90%
�Continue Spiriva, may need to consider adding LABA/ICS onto discharge for at least 2 weeks
Adrenal insufficiency
-Continue hydrocortisone
Hypothyroidism
� Continue Synthroid
Anticipated Discharge: 24 - 48 hours
Subjective/Interval History
-
Date of Service: March 05, 2024
Seen and examined. No new complaints. No acute overnight events.
Denies alcohol use. Denies vaping hx
Physical therapy was evaluated
Objective Data
-
Labs:
Laboratory Results
03/05/24
04:28
WBC 16.9 H
Hgb 9.9 L
Hct 29.5 L
Plt Count 264
Sodium 139
Potassium 4.1
Chloride 105
Carbon Dioxide 27
BUN 17
Creatinine 1.2
Glucose 89
Calcium 8.2 L
Total Bilirubin 0.4
AST 23
ALT 11
Alkaline Phosphatase 59
Vital Signs:
Vital Signs
Temp Pulse Resp BP Pulse Ox
97.6 F 96 24 116/72 99
03/05/24 11:00 03/05/24 11:15 03/05/24 11:15 03/05/24 10:59 03/05/24 11:15
I&O
03/04/24 03/05/24 03/06/24
06:59 06:59 06:59
Intake Total 3680 / 3680
Output Total 475 / 475 475 / 475 400 / 400
Balance -475 / -475 3205 / 3205 -400 / -400
[2024-03-05] MEDS: LOVENOX 40 MG SC (17:29)
[2024-03-05] MEDS: MOTRIN 400 MG PO (20:50)
[2024-03-06] VITALS (11 sets, daily range): BP systolic 118–158; BP diastolic 68–99; PULSE 103; O2SAT 88–97; BMI 25.4
[2024-03-06] MEDS: TYLENOL 650 MG PO ×2 (03:54→08:32)
--- NOTE | 2024-03-06 05:55 | PTCARENOTE ---
Patient able to sleep overnight. 2L NC remain in place. Pt requesting prn motrin/tylenol for headache/generalized back pain. No gi/gu complaints; voiding in urinal. Tele showing NSR/ST. MSAS 1-2. Swallowing pills w/o issues. Call ha within reach.
calls appropriately.
[2024-03-06] MEDS: ZOSYN 50 IV ×4 (06:07→23:01)
[2024-03-06] MEDS: SYNTHROID 112 MCG PO (06:08)
--- NOTE | 2024-03-06 07:30 | W.PN.HOSP.TC ---
Addendum entered and electronically signed by Felicia Sanford MD 03/06/24 14:56:
# Alcohol use disorder with withdrawal
No evidence of withdrawal currently
Addendum entered and electronically signed by Felicia Sanford MD 03/06/24 07:49:
Will add DuoNeb ATC and PRN, hold albuterol inhaler
Original Note:
Today's Communication/Plan
-
OK for tele
Assessment / Plan
Assessment / Plan
A/P:
# Acute hypoxic respiratory failure
# Elevating white count Pro-Willian 0.66, due to CAP
Weaned O2 to RA, monitor O2 requirement
continue antibiotics Zosyn/doxycycline
ID following
# COPD exacerbation, wheezing of R base
Start prednisone 40 mg x5 days
Start Mucinex, Acapella
Continue Spiriva
Pulm on board
# Lung cancer follows at [facility]
Currently not on treatment as immunotherapy postponed due to myositis.
# Alcohol use disorder for which now he states he does not drink alcohol
Tremor/tachycardia/ anxiety have resolved
Continue as needed benzos.
Continue thiamine folate
# Adrenal insufficiency
Continue hydrocortisone
# Hypothyroidism
Continue Synthroid
DVT ppx: Lovenox SQ
FC
DW RN
Anticipated Discharge: 24 - 48 hours
Subjective/Interval History
-
Date of Service: March 06, 2024
Objective Data
-
Vital Signs:
Vital Signs
Temp Pulse Resp BP Pulse Ox
36.6 C 92 18 130/92 96
03/06/24 03:05 03/06/24 06:30 03/06/24 06:30 03/06/24 06:00 03/06/24 06:21
I&O
07/07/24 07/08/24 07/09/24
06:59 06:59 06:59
Intake Total 3680 / 3680 1100 / 1100
Output Total 475 / 475 2450 / 2450
Balance 3205 / 3205 -1350 / -1350
Review of Systems
-
Respiratory: Reports Cough
Physical Exam
-
General: Well Developed, Well Nourished, Comfortable and Conversant
HEENT: Normocephalic, Atraumatic, Nose Appears Normal and Ears Appear Normal; Negative Oxygen
Respiratory: Clear to Auscultation, Wheezes (R base) and Non Labored Respirations; Negative Accessory Resp Muscle Use
Cardiac: Regular Rhythm and S1/S2
GI: Soft, Nontender, Nondistended and Normal Bowel Sounds
Skin: Warm and Dry
Neuro: Awake, Alert, Oriented and AO x 3
Psych: Calm and Intact Judgement/Insight
Data Reviewed
-
CT Scan: Report Reviewed by me
Labs: Labs Reviewed by me
[2024-03-06] MEDS: DUONEB 3 ML INH ×4 (08:00→19:08)
[2024-03-06] MEDS: FLOVENT 44 MCG INHALER 2 PUFF INH ×2 (08:03→19:08)
[2024-03-06] MEDS: SPIRIVA RESPIMAT 2.5 MCG 2 PUFF INH (08:03)
[2024-03-06] MEDS: STRIVERDI RESPIMAT 2 PUFF INH (08:05)
[2024-03-06] MEDS: PROTONIX 40 MG PO (08:15)
[2024-03-06] MEDS: NEURONTIN 300 MG PO ×2 (08:16→20:34)
[2024-03-06] MEDS: CORTEF 20 MG PO (08:16)
[2024-03-06] MEDS: MAGNESIUM OXIDE 500 MG PO (08:16)
[2024-03-06] MEDS: FOLVITE 1 MG PO (08:17)
[2024-03-06] MEDS: THIAMINE INJECTION 200 MG IV ×2 (08:17→20:35)
[2024-03-06] MEDS: VIBRAMYCIN 100 MG PO ×2 (08:17→20:34)
[2024-03-06] MEDS: DELTASONE 40 MG PO (09:13)
[2024-03-06] MEDS: MUCINEX 1200 MG PO ×2 (09:13→20:34)
--- NOTE | 2024-03-06 09:55 | W.PN.ID1 ---
Addendum entered and electronically signed by Ade Canales MD 03/06/24 14:59:
labs back, reviewed, persistent leukocytosis (now on additional steroids beyond his home dose), cr stable
Original Note:
Date of Service
Date of Service: March 06, 2024
Today's Communication
follow sputum culture
- continue zosyn/doxycycline for now, day 3 of therapy
- follow clinically
Assessment / Plan
Pulmonary Infiltrate
Lung Cancer
History of adverse drug reaction to immunotherapy
On outpatient steroids
- note addition of prednisone 40 mg today
- cbc and bmp pending this am
- sputum culture if able to obtain one
- blood culture no growth to date
- qtc 470
- continue zosyn/doxycycline for now, day 3 of therapy
- follow clinically
Chief Complaint
-: Pneumonia and Other (Pneumonitis)
Subjective / Review of Systems
afebrile
bp stable
cbc, bmp this am pending
resp culture in progress, gram stain pending
now on predinsone 40 mg po qday
reports no coughing
patient is a difficult stick
Vital Signs / Physical Exam
Vital Signs
Vital Signs
Temp Pulse Resp BP Pulse Ox
97.0 F 92 16 130/92 94
03/06/24 07:10 03/06/24 08:14 03/06/24 08:14 03/06/24 06:00 03/06/24 08:18
Physical Exam
Constitutional: No Acute Distress
Cardiovascular: Regular Rate and S1/S2; Negative Murmur or Rub
Pulmonary: Clear and Symmetric; Negative Wheezes or Rales
Gastrointestinal: Soft, Non Tender, Non Distended and Normal Bowel Sounds
Skin: Warm and Dry; Negative Rash or Jaundice
Objective Data
Lab Data
Estimated Creat Clear 55 ml/min 03/05/24 04:28
Lactic Acid 1.9 mmol/L (0.7-2.0) 03/04/24 20:58
Total Bilirubin 0.4 mg/dl (0.2-1.3) 03/05/24 04:28
AST 23 U/L (17-59) 03/05/24 04:28
ALT 11 U/L (0-50) 03/05/24 04:28
Alkaline Phosphatase 59 U/L (38-126) 03/05/24 04:28
Most recent labs reviewed.
Micro Results:
03/06/24 09:32 Respiratory Culture - Pending
Sputum Gram Stain - Pending
03/04/24 17:23 MRSA Screen - Final
Nose No Methicillin Resistant Staphylococcus aureus isolated.
03/04/24 03:28 Blood Culture - Preliminary
Blood/Venous No Growth in 48 hours- Final report to follow
03/04/24 02:36 Influenza Types A & B (ALESSANDRA) - Final
Nasal Swab Negative for Influenza A & B, NAAT
Negative results must be combined with clinical observations
and patient history.
Nucleic Acid Amplification test (NAAT)performed on the
[employer] platform.
[2024-03-06 11:19] LABS: % Basophils 0.6 % (0-2); % Eosinophils 1.5 % (0-6); % Immature Granulocytes 1.3 % (0-0.5); % Lymphocytes 8.9 % (20.5-51.1); % Monocytes 6.7 % (1.7-9.3); Absolute Basophils 0.1 10^3/uL (0-0.2); Absolute Eosinophils 0.2 10^3/uL (0-0.7); Absolute Immature Granulocytes 0.2 10^3/uL (0-0.05); Absolute Lymphocytes 1.3 10^3/uL (1.2-3.4); Absolute Neutrophils 11.6 10^3/uL (1.4-6.5); Hematocrit 30.3 % (39.0-52.0); Mean Corpuscular Hgb 30.8 pg (27.0-31.0); Mean Corpuscular Volume 93.2 fL (80.0-94.0); Nucleated Red Blood Cells % 0 % (-); Red Blood Cell Count 3.25 10^6/uL (4.70-6.10); White Blood Cell Count 14.4 10^3/uL (4.8-10.8)
[2024-03-06 11:44] LABS: Blood Urea Nitrogen 17 mg/dl (9-20); Calcium 8.9 mg/dl (8.4-10.2); Carbon Dioxide 27 mmol/L (22-30); Chloride 101 mmol/L (98-107); Estimated Creatinine Clearance 55 ml/min; Glucose 96 mg/dl (70-99); Potassium 3.5 mmol/L (3.5-5.1); Sodium 135 mmol/L (135-145); eGFR > 60.00
--- NOTE | 2024-03-06 11:58 | CM ---
Patient with Hx lung CA with Dx Acute hypoxic respiratory failure, COPD exacerbation, Alcohol use disorder. Tox screen + THC. PT recommends skilled rehab.
Met with patient who resides alone in a 2 story rented house/converted from barn, with 14 + 3 outside stairs.
The patient has been independent in ADLs and ambulation using his SPC.
DME - RW, SPC, commode
Current with [facility] for SN & PT and wishes to resume at d/c.
Prior [facility] after admission to [facility] in Oct 2023.
PCP - Jayesh Ma
Pharmacy - [facility], [place]
Patient's neighbor Chandni is his POA for HC & finance.
His friend Ysabel comes by every day to assist him with cooking & cleaning and friends drive him to the store.
His ex- of 25 yrs passes away and his SO also in the last few years from cancer.
He has 3 children with whom he has no contact.
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
The patient is working with [employer] for rental assistance, who has assigned a Wire Drawing Setter through [facility] and [facility]. Ghanshyam offered to set him up with [employer] 8hrs/day for
caregivers services, and patient is considering allowing them to assist him 4 hrs/day, and will decide after discharge.
Gahnshyam informed him he was approved for assistance with his utilities and food. Through the EBT program he was awarded $291/month for food.
The patient says he is not sure why he was offered [employer] resources as he has only had a few drinks in the past year.
Spoke with ALISE To; the patient accepted outpatient resources. He stated he has a good relationship with a peer from AA who he can call if needed.
Spoke with MARTI Sandoval; patient wants to go home and has 17 outside stairs. He will benefit from stair training.
Message to Dr Sanford requesting OT Eval.
Plan follow patient's progress with PT/OT.
[2024-03-06] MEDS: CORTEF 10 MG PO (12:43)
--- NOTE | 2024-03-06 13:25 | TRANSFER ---
Pt ordered downgrade to telemetry; report called to 4W RNBecky, pt transported via stretcher on 1L O2 NC and telemetry. Personal belongings sent with pt.
--- NOTE | 2024-03-06 13:29 | W.PN.PUL3 ---
Today's Communication / Plan
-
Antibiotics
Oral steroids (home dose)
Spiriva, striverdi + Flovent
DuoNebs
PC TECHNICIAN eval
Assessment
-
73-year-old male with complex medical history including metastatic melanoma, status postsurgical resection on immunotherapy, held due to recent myositis requiring steroids, COPD, possible adrenal insufficiency, hypothyroidism with recent prolonged
hospital stay at [place] for 1 month thought to be due to respiratory illness and alcohol withdrawal although I cannot confirm this. Patient now admitted for hypoxic respiratory insufficiency, saturation in the 70s, found to have extensive
right-sided pneumonia.
Acute hypoxic respiratory insufficiency
70% at home, currently on nasal cannula
Extensive right-sided infiltrates involving RUL, RML + RLL - suspect infection/aspiration
Reticular thickening, groundglass changes.
No honeycomb changes
Mild COPD exacerbation
No wheezing on exam at this time
Anemia
Elevated lactate
Sinus tachycardia
Conditions present prior to admission
History of metastatic melanoma, diagnosed March 2022
Lymph node involvement status post lymphadenectomy, chest wall resection
Immunotherapy in the past, now held
Complicated by myositis
History of SIADH
Follows endocrine at [place]
Positive DOUG, cytoplasmic pattern
Hypothyroidism
Chronic neuropathy on gabapentin
Secondary to immunotherapy. Follows neurology
GERD
Chronic alcohol use (patient denies)
Suspected occupational exposure history
Swimming pools, cement dust, chlorine
Possible copper, chromium, arsenic, lead exposure
Elevated arsenic/lead levels in the past
[id number] history of smoking (patient states he quit 2021)
Suspected ongoing vaping
Plan/recommendations
At this time, patient with complex medical history. Unfortunately most of his medical care is at [place]
Seems that his primary complaint is paresthesias involving his arms and legs. He sees neurology for this. He is on gabapentin dosing, despite increasing dosing has worsening symptoms.
Presently is 98% on 6 L.
I find it hard to believe that he has not required home oxygen in the past
Some of his findings on his CT imaging suggest chronic scarring on the right side, although imaging from October 2023 and abdominal imaging did not reveal any interstitial process at the base
Moving forward
Suspect acute infectious pneumonitis vs inflammatory process, aspiration event
Patient has been on immunotherapy in the past, but per records has not been treated with this due to complications of myositis. Has been on steroids, and possibly complicated by adrenal insufficiency. Sees endocrinology at [place], also treated
for thyroid disease and SIADH
Presently on Zosyn/doxycycline. Will continue this
Given elevated lactate, sinus tachycardia, will treat for infectious process especially given recent prolonged hospital stay
Lactate has since normalized since 03/04; no need to continue trending this
Aspiration pneumonitis also possibility, patient is not a good historian - would check PC TECHNICIAN evaluation
Doubt occupational cause of his interstitial process as he had ct abd/pelvis imaging in the last year which did not show any interstitial process at bases of lungs
This may also be due to vaping induced interstitial disease. Although he denied it to me, records suggest he continues to smoke and vape
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
Continue with outpatient hydrocortisone dosing
Primary issue, however is likely in alcohol withdrawal
Patient was tremulous during evaluation with Dr. Alexander on 03/05/2024
Continue with thiamine/folic acid and follow closely for withdrawal symptoms, continue MSAS protocol
There are some outpatient records that suggest patient has been referred to palliative care although not sure if this is in the plan
DVT prophylaxis: Patient high risk. Continue with enoxaparin
GI prophylaxis: Continue with Protonix, especially given alcohol history
Remains high risk situation. Will continue to follow
Total time spent today was 35 minutes for this encounter. Time includes reviewing laboratory test/imaging results, reviewing pertinent medical records, obtaining and reviewing medical history, performing an appropriate exam, ordering medications,
tests and procedures. Time also includes documentation of this encounter, coordinating patient care and communicating with other healthcare professionals. Total time does not include separately billed tests performed on this date of service.
Subjective Data
-
Date of Service:
Date of Service: March 06, 2024
Chief Complaint: Pulmonary Follow Up
Subjective:
Patient seen and evaluated today at bedside. He is currently on 1 L/min nasal cannula. He says he feels good today. Walking around the unit with no chest pain or shortness of breath. No acute events reported from overnight.
Review of Systems
General: Other (Negative unless mentioned above)
Objective Data
Data Reviewed
Vital Signs / I&O / Oxygen:
Vital Signs
Temp Pulse Resp BP Pulse Ox
97.0 F 100 17 131/74 95
03/06/24 07:10 03/06/24 13:15 03/06/24 13:15 03/06/24 08:00 03/06/24 13:15
Intake and Output
03/05/24 03/06/24 03/07/24
06:59 06:59 06:59
Intake Total 3680 / 3680 1100 / 1100
Output Total 475 / 475 2450 / 2450
Balance 3205 / 3205 -1350 / -1350
SaO2 95
Nasal Cannula flow liters per 1
minute
Physical Exam
General: Respiratory Distress (Negative), Comfortable and Chills (Negative)
HEENT: Normocephalic and Anicteric
Cardiovascular: S1-S2 and Peripheral Edema (Negative)
Respiratory: Wheeze (Negative), Crackles (Right-sided) and Rhonchi (Negative)
GI: Soft, Non Distended, Non Tender and Normal Bowel Sounds
Neurology: Awake and Alert
Skin: Warm, Dry and Jaundice (Negative)
Labs/Micro/Reports
Lab Data
03/06/24 11:03
03/06/24 11:03
Microbiology
03/06/24 09:32 Sputum Gram Stain - Preliminary
03/04/24 17:23 Nose MRSA Screen - Final
No Methicillin Resistant Staphylococcus aureus isolated.
03/04/24 03:28 Blood/Venous Blood Culture - Preliminary
No Growth in 48 hours- Final report to follow
03/04/24 02:36 Nasal Swab Influenza Types A & B (ALESSANDRA) - Final
Negative for Influenza A & B, NAAT
Negative results must be combined with clinical observations
and patient history.
Nucleic Acid Amplification test (NAAT)performed on the
[employer] platform.
--- NOTE | 2024-03-06 14:00 | PTCARENOTE ---
Patient received to room 414-02 from IMU. Patient assisted to ambulate with the rolling walker a few steps from the stretcher to the bed. Patient oriented to room, instructed natural resource economist ha use and verbalizes understanding.
--- NOTE | 2024-03-06 14:21 | PN.CDI ---
CDI
- -
CDI:
Physician Documentation Request
Admit Date: 03/04/24 05:45
Dear Doctor Claribel,
Clinical Indicators:
Patient admitted with acute hypoxic respiratory failure.
03/06 PN, 'Alcohol use disorder for which now he states he does not drink alcohol...Tremor/tachycardia/ anxiety have resolved'
03/04 MSAS scores: 2-7
7 Ativan 0.5mg IV x 2 doses.
Ativan 1mg IV x 1 dose.
If possible, please provide further specificity as outlined below:
Alcohol use disorder with withdrawal
Alcohol use disorder only
Other, please specify
Use of terms such as suspected, likely, concern for, or probable (associated with a specific diagnosis that is being evaluated, monitored, or treated as if it exists) are acceptable and can be coded in the inpatient setting, when documented at the
time of discharge.
Thank you,
DOV Castillo RN
CDI Specialist
available via tiger text
Please use your independent medical judgment in providing your response.
[2024-03-06] MEDS: KCL 40 MEQ PO (16:16)
[2024-03-06] MEDS: LOVENOX 40 MG SC (17:27)
[2024-03-06] MEDS: FLUSH (NSS) 1 FLUSH IV (17:29)
[2024-03-06] MEDS: MOTRIN 400 MG PO (17:43)
[2024-03-07] MEDS: MOTRIN 400 MG PO (02:35)
[2024-03-07 03:05] VITALS: BP 149/81
[2024-03-07 06:00] VITALS: BMI 26.0
[2024-03-07] MEDS: ZOSYN 50 IV (06:04)
[2024-03-07] MEDS: SYNTHROID 112 MCG PO (06:05)
[2024-03-07 08:00] VITALS: BP 140/72
--- NOTE | 2024-03-07 08:13 | W.PN.HOSP.TC ---
Addendum entered and electronically signed by Felicia Sanford MD 03/07/24 14:43:
# Severe sepsis was present on admission and is now resolved.
Addendum entered and electronically signed by Felicia Sanford MD 03/07/24 14:13:
total DC time 36 min
Original Note:
Today's Communication/Plan
-
see A/P
Assessment / Plan
Assessment / Plan
A/P:
# Acute hypoxic respiratory failure
# Elevating white count Pro-Willian 0.66, due to CAP
Weaned O2 to RA, monitor O2 requirement
continue antibiotics Zosyn/doxycycline
ID following
# ruled out COPD exacerbation
Started Mucinex, Acapella
Continue Spiriva
Pulm on board, recc to cont home dose steroid
# Lung cancer follows at [facility]
Currently not on treatment as immunotherapy postponed due to myositis.
# Alcohol use disorder for which now he states he does not drink alcohol
Tremor/tachycardia/ anxiety have resolved
Continue as needed benzos.
Continue thiamine folate
# Adrenal insufficiency
Continue hydrocortisone
# Hypothyroidism
Continue Synthroid
DVT ppx: Lovenox SQ
FC
Dispo: HH per PT OT
Anticipated Discharge: Within 24 hours
Subjective/Interval History
-
Date of Service: March 07, 2024
Objective Data
-
Labs:
Laboratory Results
03/07/24
08:13
WBC Pending
Hgb Pending
Hct Pending
Plt Count Pending
Sodium Pending
Potassium Pending
Chloride Pending
Carbon Dioxide Pending
BUN Pending
Creatinine Pending
Glucose Pending
Calcium Pending
Vital Signs:
Vital Signs
Temp Pulse Resp BP Pulse Ox
36.5 C 95 18 149/81 97
03/07/24 03:05 03/07/24 03:05 03/07/24 03:05 03/07/24 03:05 03/07/24 03:05
I&O
03/06/24 03/07/24 03/08/24
06:59 06:59 06:59
Intake Total 1100 / 1100 940 / 940
Output Total 2450 / 2450 950 / 950
Balance -1350 / -1350 -10 / -10
Review of Systems
-
All other systems: Reviewed and negative
Physical Exam
-
General: Well Developed, Well Nourished, Comfortable and Conversant
HEENT: Normocephalic, Atraumatic, Nose Appears Normal and Ears Appear Normal; Negative Oxygen
Respiratory: Clear to Auscultation and Non Labored Respirations; Negative Wheezes or Accessory Resp Muscle Use
Cardiac: Regular Rhythm and S1/S2
GI: Soft, Nontender, Nondistended and Normal Bowel Sounds
Skin: Warm and Dry
Neuro: Awake, Alert, Oriented and AO x 3
Psych: Calm and Intact Judgement/Insight
Data Reviewed
-
CT Scan: Report Reviewed by me
Labs: Labs Reviewed by me
[2024-03-07] MEDS: DUONEB 3 ML INH ×2 (08:20→11:13)
[2024-03-07] MEDS: FLOVENT 44 MCG INHALER 2 PUFF INH (08:20)
[2024-03-07] MEDS: STRIVERDI RESPIMAT 2 PUFF INH (08:22)
[2024-03-07] MEDS: MAGNESIUM OXIDE 500 MG PO (08:59)
[2024-03-07] MEDS: VIBRAMYCIN 100 MG PO (08:59)
[2024-03-07] MEDS: PROTONIX 40 MG PO (08:59)
[2024-03-07] MEDS: VITAMIN B1 100 MG PO (08:59)
[2024-03-07] MEDS: CORTEF 20 MG PO (08:59)
[2024-03-07] MEDS: MUCINEX 1200 MG PO (08:59)
[2024-03-07] MEDS: NEURONTIN 300 MG PO (09:00)
[2024-03-07] MEDS: FOLVITE 1 MG PO (09:00)
[2024-03-07] MEDS: DELTASONE PO (09:05)
[2024-03-07 09:09] LABS: Blood Urea Nitrogen 16 mg/dl (9-20); Carbon Dioxide 27 mmol/L (22-30); Chloride 101 mmol/L (98-107); Estimated Creatinine Clearance 55 ml/min; Glucose 136 mg/dl (70-99); Potassium 3.7 mmol/L (3.5-5.1); Sodium 136 mmol/L (135-145); eGFR > 60.00
--- NOTE | 2024-03-07 10:18 | W.PN.ID1 ---
Date of Service
Date of Service: March 07, 2024
Today's Communication
- finish a 5 day course of antibiotics with cefdinir/doxycycline
- follow up with PCP
Assessment / Plan
Pulmonary Infiltrate
Lung Cancer
History of adverse drug reaction to immunotherapy
On outpatient steroids
- sputum culture normal resp sesar
- blood culture no growth to date
- qtc 470
- finish a 5 day course of antibiotics with cefdinir/doxycycline
- follow up with PCP
Chief Complaint
-: Pneumonia and Other (Pneumonitis)
Subjective / Review of Systems
afebrile
bp stable
cr stable
without leukocytosis today
now back to home dose of steroids
asking for dc
Vital Signs / Physical Exam
Vital Signs
Vital Signs
Temp Pulse Resp BP Pulse Ox
97.8 F 112 20 140/72 95
03/07/24 07:00 03/07/24 08:34 03/07/24 08:34 03/07/24 08:00 03/07/24 08:34
Physical Exam
Constitutional: No Acute Distress and Chronically Ill
Cardiovascular: Regular Rate and S1/S2; Negative Murmur or Rub
Pulmonary: Clear and Symmetric; Negative Wheezes or Rales
Gastrointestinal: Soft, Non Tender, Non Distended and Normal Bowel Sounds
Skin: Warm and Dry; Negative Rash or Jaundice
Objective Data
Lab Data
Lab Results
03/07/24 08:13
Estimated Creat Clear 55 ml/min 03/07/24 08:13
Lactic Acid 1.9 mmol/L (0.7-2.0) 03/04/24 20:58
Total Bilirubin 0.4 mg/dl (0.2-1.3) 03/05/24 04:28
AST 23 U/L (17-59) 03/05/24 04:28
ALT 11 U/L (0-50) 03/05/24 04:28
Alkaline Phosphatase 59 U/L (38-126) 03/05/24 04:28
Most recent labs reviewed.
Micro Results:
03/06/24 09:32 Respiratory Culture - Preliminary
Sputum Usual Respiratory Sesar
Gram Stain - Preliminary
03/04/24 03:28 Blood Culture - Preliminary
Blood/Venous No Growth in 72 hours- Final report to follow
03/04/24 17:23 MRSA Screen - Final
Nose No Methicillin Resistant Staphylococcus aureus isolated.
03/04/24 02:36 Influenza Types A & B (ALESSANDRA) - Final
Nasal Swab Negative for Influenza A & B, NAAT
Negative results must be combined with clinical observations
and patient history.
Nucleic Acid Amplification test (NAAT)performed on the
[employer] platform.
[2024-03-07] MEDS: OMNICEF 300 MG PO (11:04)
--- NOTE | 2024-03-07 11:08 | PTOTSP ---
Dysphagia Evaluation
Patient has risk factors for dysphagia (i.e., COPD, lung cancer, myositis, chronic alcohol use) and signs which can be concerning for possible aspiration (i.e., PNA x2 this year). No overt signs of aspiration observed at the bedside. Consider
video swallow study if concerned for silent aspiration as this cannot be ruled out bedside.
Recommend:
1. Regular, Thin Liquids
2. Medications as best tolerated
3. Strategies: pick soft/moist foods that are easy to chew, cut foods well, chew foods thoroughly, slow rate with breaks for breathing
4. Oral care 3x daily
5. Consider video swallow study
[2024-03-07 11:21] VITALS: BP 148/74
[2024-03-07 12:08] VITALS: BP 142/74; O2SAT 92
--- NOTE | 2024-03-07 12:12 | W.PN.PUL3 ---
Today's Communication / Plan
-
Antibiotics
Oral steroids (home dose)
Spiriva, striverdi + Flovent
DuoNebs
Resume home inhalers upon discharge
Patient doing well and is being prepared for discharge. He says that he will follow-up with his rewards consultant at [place]. No additional recommendations at this time per our service.
Pulmonary service will now sign off. Please reconsult if there are any additional questions/concerns, or if patient's respiratory status deteriorates.
Assessment
-
73-year-old male with complex medical history including metastatic melanoma, status postsurgical resection on immunotherapy, held due to recent myositis requiring steroids, COPD, possible adrenal insufficiency, hypothyroidism with recent prolonged
hospital stay at [place] for 1 month thought to be due to respiratory illness and alcohol withdrawal although I cannot confirm this. Patient now admitted for hypoxic respiratory insufficiency, saturation in the 70s, found to have extensive
right-sided pneumonia.
Impression:
Acute hypoxic respiratory insufficiency
70% at home, currently on room air breathing comfortably
Extensive right-sided infiltrates involving RUL, RML + RLL - suspect infection/aspiration
Reticular thickening, groundglass changes.
No honeycomb changes
Mild COPD exacerbation
No wheezing on exam at this time
Anemia
Elevated lactate � resolved
Sinus tachycardia
Conditions present prior to admission
History of metastatic melanoma, diagnosed March 2022
Lymph node involvement status post lymphadenectomy, chest wall resection
Immunotherapy in the past, now held
Complicated by myositis
History of SIADH
Follows endocrine at [place]
Positive DOUG, cytoplasmic pattern
Hypothyroidism
Chronic neuropathy on gabapentin
Secondary to immunotherapy. Follows neurology
GERD
Chronic alcohol use (patient denies)
Suspected occupational exposure history
Swimming pools, cement dust, chlorine
Possible copper, chromium, arsenic, lead exposure
Elevated arsenic/lead levels in the past
[id number] history of smoking (patient states he quit 2021)
Suspected ongoing vaping
Plan/recommendations
At this time, patient with complex medical history. Unfortunately most of his medical care is at [place]
Seems that his primary complaint is paresthesias involving his arms and legs. He sees neurology for this. He is on gabapentin dosing, despite increasing dosing has worsening symptoms.
Presently is 98% on 6 L.
I find it hard to believe that he has not required home oxygen in the past
Some of his findings on his CT imaging suggest chronic scarring on the right side, although imaging from October 2023 and abdominal imaging did not reveal any interstitial process at the base
Moving forward
Suspect acute infectious pneumonitis vs inflammatory process, aspiration event
Patient has been on immunotherapy in the past, but per records has not been treated with this due to complications of myositis. Has been on steroids, and possibly complicated by adrenal insufficiency. Sees endocrinology at [place], also treated
for thyroid disease and SIADH
Presently on cefdinir/doxy s/p Zosyn to complete a total 7-10-day course of antibiotics.
Given elevated lactate, sinus tachycardia, will treat for infectious process especially given recent prolonged hospital stay
Lactate has since normalized since 03/04; no need to continue trending this
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
Doubt occupational cause of his interstitial process as he had ct abd/pelvis imaging in the last year which did not show any interstitial process at bases of lungs
This may also be due to vaping induced interstitial disease. Although he denied it to me, records suggest he continues to smoke and vape
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
Continue with outpatient hydrocortisone dosing
Primary issue, however is likely in alcohol withdrawal
Patient was tremulous during evaluation with Dr. Alexander on 03/05/2024; he does not appear tremulous today per my evaluation
Continue with thiamine/folic acid and follow closely for withdrawal symptoms, continue MSAS protocol
There are some outpatient records that suggest patient has been referred to palliative care although not sure if this is in the plan
DVT prophylaxis: Enoxaparin
GI prophylaxis: Continue with Protonix, especially given alcohol history
Patient doing well and is being prepared for discharge. He says that he will follow-up with his rewards consultant at [place]. No additional recommendations at this time per our service.
Pulmonary service will now sign off. Thank you for allowing us to be involved in the care of this patient. Please reconsult if there are any additional questions/concerns, or if patient's respiratory status deteriorates.
Total time spent today was 25 minutes for this encounter. Time includes reviewing laboratory test/imaging results, reviewing pertinent medical records, obtaining and reviewing medical history, performing an appropriate exam, ordering medications,
tests and procedures. Time also includes documentation of this encounter, coordinating patient care and communicating with other healthcare professionals. Total time does not include separately billed tests performed on this date of service.
Subjective Data
-
Date of Service:
Date of Service: March 07, 2024
Chief Complaint: Pulmonary Follow Up
Subjective:
Patient seen and evaluated today at bedside. He is being prepared for discharge home. No events reported overnight. He feels good. On room air breathing complete.
Review of Systems
General: Other (Negative unless mentioned above)
Objective Data
Data Reviewed
Vital Signs / I&O / Oxygen:
Vital Signs
Temp Pulse Resp BP Pulse Ox
97.9 F 110 20 148/74 95
03/07/24 11:00 03/07/24 11:20 03/07/24 11:20 03/07/24 11:21 03/07/24 11:20
Intake and Output
03/06/24 03/07/24 03/08/24
06:59 06:59 06:59
Intake Total 1100 / 1100 940 / 940
Output Total 2450 / 2450 950 / 950
Balance -1350 / -1350 -10 / -10
SaO2 95
Nasal Cannula flow liters per 1
minute
Physical Exam
General: Respiratory Distress (Negative), Comfortable and Chills (Negative)
HEENT: Normocephalic and Anicteric
Cardiovascular: S1-S2 and Peripheral Edema (+1 lower extremity edema bilaterally)
Respiratory: Wheeze (Negative), Crackles (Bibasilar) and Rhonchi (Negative)
GI: Soft, Non Distended, Non Tender and Normal Bowel Sounds
Neurology: Awake and Alert
Skin: Warm, Dry and Jaundice (Negative)
Labs/Micro/Reports
Lab Data
03/07/24 08:13
Microbiology
03/06/24 09:32 Sputum Respiratory Culture - Preliminary
Usual Respiratory Kelsea
03/06/24 09:32 Sputum Gram Stain - Preliminary
03/04/24 03:28 Blood/Venous Blood Culture - Preliminary
No Growth in 72 hours- Final report to follow
03/04/24 17:23 Nose MRSA Screen - Final
No Methicillin Resistant Staphylococcus aureus isolated.
[2024-03-07 12:37] LABS: % Basophils 0.3 % (0-2); % Eosinophils 0.1 % (0-6); % Immature Granulocytes 3.5 % (0-0.5); % Lymphocytes 11.8 % (20.5-51.1); % Monocytes 4.6 % (1.7-9.3); % Neutrophils 79.7 % (42.2-75.2); Absolute Immature Granulocytes 0.5 10^3/uL (0-0.05); Absolute Lymphocytes 1.6 10^3/uL (1.2-3.4); Absolute Monocytes 0.6 10^3/uL (0.1-0.6); Hematocrit 25.1 % (39.0-52.0); Hemoglobin 8.4 g/dL (13.0-18.0); Mean Corp Hgb Conc. 33.5 g/dL (33.0-37.0); Mean Corpuscular Volume 92.6 fL (80.0-94.0); Mean Platelet Volume 10.4 fL (7.4-10.4); Nucleated Red Blood Cells % 0 % (-); Platelet Count 285 10^3/uL (130-400); Red Blood Cell Count 2.71 10^6/uL (4.70-6.10); Red Cell Dist. Width 13.1 % (11.5-14.5); White Blood Cell Count 13.9 10^3/uL (4.8-10.8)
--- NOTE | 2024-03-07 13:03 | PN.CDI ---
CDI
- -
CDI:
Physician Documentation Request
Admit Date: 03/04/24 05:[address] Sanford,
Clinical Indicators:
The diagnosis of severe sepsis was documented on 03/04, but is not consistently noted in subsequent documentation.
03/04 H & P, 'Severe sepsis probably due to PNA at RML presumed RIVER Associated with acute hypoxic respiratory failure.'
03/07 PN, 'Elevating white count Pro-Willian 0.66, due to CAP'
WBC trend:
03/04/24 03/05/24
02:36 04:28
WBC 7.6 16.9 H
Lactic acid on admission:
03/04/24
03:28
Lactic Acid 3.0 H
HR/RR on admission:
03/04/24
02:22 03/04/24
03:04 03/04/24
04:00
Pulse 116 110 113
Resp Rate 28 21 26
03/04/24
05:00 03/04/24
06:00
Pulse 116 123
Resp Rate 26 29
Please clarify the following:
Severe sepsis was present on admission and is now resolved.
Severe sepsis is still a likely, suspected, probable diagnosis
Severe sepsis was ruled out
Other, please specify
Use of terms such as suspected, likely, concern for, or probable (associated with a specific diagnosis that is being evaluated, monitored, or treated as if it exists) are acceptable and can be coded in the inpatient setting, when documented at the
time of discharge.
Thank you,
DOV Castillo RN
CDI Specialist
available via tiger text
Please use your independent medical judgment in providing your response.
[2024-03-07] MEDS: CORTEF 10 MG PO (13:17)
--- NOTE | 2024-03-07 13:45 | CM ---
Patient seen bedside, patient is hopeful to discharge today, reports he has transportation home. Patient reports he would like to continue working with [facility] upon discharge, will send [facility] referral in [facility]. Patient requesting to meet with
[employer], TT sent to Diet[facility]. CM reviewed IMM, signed, placed in chart. CM will continue to follow for all discharge planning needs.
Plan; home with [facility]
--- NOTE | 2024-03-07 14:09 | W.DCSUMMARY ---
Discharge Summary
Discharge Data
Date of Admission: 03/04/24
Date of Discharge: 03/07/24
-
Pending Results: No
Hospital Course
Principal Diagnosis:
Acute hypoxic respiratory failure (resolved) due to community-acquired pneumonia
Chronic Diagnoses:�
Lung cancer follows at [facility]
history of Alcohol use disorder
Adrenal insufficiency on hydrocortisone
Hypothyroidism on Synthroid
Consultations:�
Pulmonary
Infectious disease
Procedures:�
None
Clinical course:�
This is a 73-year-old male, with past medical history as stated above, who presented with shortness of breath and hypoxia.
Problem 1:
Acute hypoxic respiratory failure (resolved) due to community-acquired pneumonia.
His procalcitonin was elevated at 0.66.
The patient was requiring oxygen support initially, which was later weaned back to room air.
He received Zosyn and doxycycline while in the hospital, and was discharged with cefdinir and doxycycline for 5 more days
As for the rest of his medical problems, they were stable during his hospital stay.
Discharge Plan
-
Patient Disposition: Home with Home Care
Discharge Diagnosis/Procedures: Acute hypoxic respiratory failure (resolved) due to community-acquired pneumonia; Lung cancer (not on treatment) follows at [facility]
Condition: Fair
Diet: Low Fat, Low Cholesterol and Low Sodium
Activity: As tolerated
Driving Restrictions: As prior to admission
Blood Work: CBC in 1 week with result to your PCP
Referrals:
Savannah Love CRNP [Family Provider] - in less than 1 week
Additional Discharge Medication Instructions: Continue cefdinir/doxycycline for 5 more days
Prescriptions:
New
doxycycline hyclate 100 mg Capsule
100 mg PO Q12 5 Days Qty: 10 0RF
cefdinir 300 mg Capsule
300 mg PO Q12 5 Days Qty: 10 0RF
Continued
pantoprazole [Protonix] 40 mg Tablet,Delayed Release (Dr/Ec)
40 mg PO DAILY
hydrocortisone 10 mg Tablet
20 mg PO DAILY
hydrocortisone 10 mg Tablet
10 mg PO DAILY@1300
levothyroxine [Synthroid] 112 mcg Tablet
112 mcg PO DAILY
Anoro Ellipta 62.5-25 mcg/actuation Blister With Device
1 inh INHALATION R DAILY
albuterol sulfate 2.5 mg /3 mL (0.083 %) Solution For Nebulization
2.5 mg INHALATION R Q4HPRN PRN (Reason: SOB)
magnesium oxide 420 mg Tablet
420 mg PO DAILY
loperamide 2 mg Capsule
2 mg PO QID PRN (Reason: diarrhea)
thiamine HCl (vitamin B1) 100 mg Tablet
100 mg PO DAILY
gabapentin 300 mg Capsule
300 mg PO BID
fluticasone furoate 100 mcg/actuation Blister With Device
1 inh INHALATION DAILY
Discharge Orders:
Discharge Patient (As Directed); Ordered 03/07/24
Ordered By: Felicia Sanford
Discharge Date and Time
Print Language: SLOVENIAN
[2024-03-07 15:00] VITALS: BP 138/82
== END 2024-03-07 15:11 | disposition home health service (06) | DRG 871 ==
LOC: 4 WEST ACU 05:45
PROVIDERS: ADMITTING PHYSICIAN Internal Medicine; ATTENDING PHYSICIAN Internal Medicine; CONSULT PHYSICIAN Internal Medicine Critical Care Medicine; CONSULT PHYSICIAN Student in an Organized Health Care Education/Training Program; EMERGENCY PHYSICIAN Emergency Medicine; FAMILY PHYSICIAN Nurse Practitioner
DX: A41.9 Sepsis, unspecified organism (principal); J18.9 Pneumonia, unspecified organism; J96.01 Acute respiratory failure with hypoxia; C34.90 Malignant neoplasm of unspecified part of unspecified bronchus or lung; F10.939 Alcohol use, unspecified with withdrawal, unspecified; F17.200 Nicotine dependence, unspecified, uncomplicated; R65.20 Severe sepsis without septic shock; Z11.52 Encounter for screening for COVID-19
CPT/HCPCS: 71046; 71275; 80048; 80053; 80306; 82077; 83605; 83880; 84145; 84484; 85025; 87040; 87070; 87205; 87502; 87811; 92610; 93005; 94640; 96361; 96374; 96375; 97116; 97162; 97166; 97530; 99291; 99406; Q9967

== ENCOUNTER 2024-03-08 06:33 | Inpatient (IN) | payer OTHER, SELFPAY ==
[2024-03-08] VITALS (18 sets, daily range): BP systolic 133–164; BP diastolic 75–99; BMI 26.5; BMI 24.9; BMI 24.4
--- NOTE | 2024-03-08 02:35 | ED.GENMED ---
History of Present Illness
<LYDIA Lange - Last Filed: 03/08/24 06:02>
General
Chief Complaint: Blood Pressure Problem
Source: patient
Exam Limitations: none
Time Seen by Provider: 03/08/24 02:35
Nursing documentation reviewed up to this point in time: agreed with
History of Present Illness
History of Present Illness:
73 year old male presents for evaluation of a blood pressure problem. Pt was admitted to [facility] on 03/04 for acute hypoxic respiratory failure and was diagnosed with PNA. He was discharged on 03/07. Pt reports that at approximately 2100 on 03/07, he
began experiencing a headache and checked his blood pressure which was 160/80. Pt adds that he awoke from sleep at approximately 0100 on 03/08 with a severe headache, and notes that his BP reached 190/90 at home prior to his arrival at the ED.
Headache was slightly worsened with ambulation and not relieved with Tylenol. Pt also endorses bilateral ankle edema which began approximately 2 weeks ago and has gradually worsened. Pt denies vision changes, N/V, dizziness, syncope, CP, and
palpitations.
Past History
<LYDIA Lange - Last Filed: 03/08/24 06:02>
Past History
ED Past Medical History: Cancer (Lung cancer), COPD, GERD and Other (Alcohol abuse/tobacco abuse)
ED Past Surgical History: Other (hernia)
Social History
Tobacco: Smoker
Alcohol: Chronic alcoholic
Drug: None
Personal:
Living: with family
Employment: Retired
Family History
Family History: Other (Noncontributory)
Review of Systems
<LYDIA Lange - Last Filed: 03/08/24 06:02>
Review of Systems
Allergies reviewed?: Yes
Constitutional: Reports weight gain
Respiratory: Reports cough and trouble breathing (intermittent SOB)
Cardiac: Reports other (edema)
ABD/GI: Reports no symptoms
: Reports no symptoms
Musculoskeletal: Reports no symptoms
Neurological: Reports headache
Endocrine: Reports no symptoms
Hematologic/Lymphatic: Reports no symptoms
Psychiatric: Reports no symptoms
Phy Exam
<LYDIA Lange - Last Filed: 03/08/24 06:02>
General Physical Exam
General Presentation: well appearing
General age: appears stated age
General Skin: warm
General Habitus: normal
General Mental: alert
General Hydration: appears well hydrated
Cardiovascular Exam
Cardiovascular Exam: regular rate/rhythm and other (3+ pitting edema of ankles bilaterally )
Pulmonary Exam
Pulmonary Exam: lungs clear and no respiratory distress
Gastrointestinal Exam
Gastrointestinal Exam: normal bowel sounds and non tender
Neurological Exam
Neurological Exam: alert and oriented x3
Scores
<LYDIA Lange - Last Filed: 03/08/24 06:02>
Heart Failure Risk
Heart Failure Risk Score: Yes
History of Stroke or TIA: No
History of intubation for respiratory distress: No
Heart rate on ED arrival >/= 110: No
SaO2 <90% on arrival on room air: No
HR >/=110 during 3min walk test (or too ill to perform test): No
ECG has acute ischemic changes: No
Urea >/=12mmol/L (BUN 33.6mg/dL): No
Serum CO2>/=35mmol/L: No
Troponin I or T elevated to DC Level (0.4mg/dL): No
NT-proBNP >/=5,000ng/L (5,000pg/ml): Yes
HF Risk Score: 1
Admission Status: MEDIUM RISK 5.1% Consider observation or discharge to home with homecare & f/u visit to PCP/Mica Layer, or SNF for treatment
<Josué Clark DO - Last Filed: 03/08/24 05:50>
Heart Failure Risk
Heart Failure Risk Score: Yes
HF Risk Score: 1
Admission Status: MEDIUM RISK 5.1% Consider observation or discharge to home with homecare & f/u visit to PCP/Mica Layer, or SNF for treatment
Course
<ST AnisaPA - Last Filed: 03/08/24 06:02>
Orders/Labs/Results
Orders:
Orders
03/08/24 03:51
NT-proBNP Urgent
Troponin I Urgent
Comment: ADD ON
03/08/24 04:08
Electrocardiogram (*1) Urgent
Reason for Study: Fatigue / Weakness
EKG- Treatment ONCE
03/08/24 04:12
Complete Blood Count/With Diff Urgent
Comprehensive Metabolic Panel Urgent
Magnesium Urgent
PTT Urgent
Prothrombin Time Urgent
03/08/24 04:13
Add On- LAB Urgent
Tests Added?: troponin
03/08/24 05:50
CR Chest - 2 Views Urgent
Comment:
Reason For Exam: pneumonia
03/08/24 05:57
Acetaminophen [Tylenol] 1,000 mg .ROUTE .STK-MED ONE
Acetaminophen [Tylenol] 1,000 mg PO NOW STA
Abnormal Lab Results
03/08/24
04:12
WBC 11.5 H 10^3/uL
(4.8-10.8)
RBC 3.01 L 10^6/uL
(4.70-6.10)
Hgb 9.5 L g/dL
(13.0-18.0)
Hct 27.6 L %
(39.0-52.0)
MCH 31.6 H pg
(27.0-31.0)
Abs Immat Gran (auto) 0.5 H 10^3/uL
(0-0.05)
Absolute Neuts (auto) 7.6 H 10^3/uL
(1.4-6.5)
Absolute Monos (auto) 0.9 H 10^3/uL
(0.1-0.6)
Immature Gran % 4.5 H %
(0-0.5)
Lymphocytes % 19.0 L %
(20.5-51.1)
Magnesium 1.3 L mg/dl
(1.6-2.3)
Total Protein 5.5 L g/dl
(6.3-8.2)
Albumin 3.3 L g/dl
(3.5-5.0)
03/08/24 04:12
03/08/24 04:12
Vital Signs
Initial and Last Documented VS:
Initial Vital Signs
Temp Pulse Resp BP Pulse Ox
97.7 F 95 26 159/98 94
03/08/24 02:26 03/08/24 02:26 03/08/24 02:26 03/08/24 02:26 03/08/24 02:26
Last Documented Vital Signs
Temp Pulse Resp BP Pulse Ox
97.7 F 86 18 159/98 92
03/08/24 02:26 03/08/24 05:15 03/08/24 05:15 03/08/24 05:00 03/08/24 05:00
<Josué Clark, DO - Last Filed: 03/08/24 05:50>
Orders/Labs/Results
Orders:
Orders
03/08/24 03:51
NT-proBNP Urgent
Troponin I Urgent
Comment: ADD ON
03/08/24 04:08
Electrocardiogram (*1) Urgent
Reason for Study: Fatigue / Weakness
EKG- Treatment ONCE
03/08/24 04:12
Complete Blood Count/With Diff Urgent
Comprehensive Metabolic Panel Urgent
Magnesium Urgent
PTT Urgent
Prothrombin Time Urgent
03/08/24 04:13
Add On- LAB Urgent
Tests Added?: troponin
03/08/24 05:50
CR Chest - 2 Views Urgent
Comment:
Reason For Exam: pneumonia
03/08/24 05:57
Acetaminophen [Tylenol] 1,000 mg .ROUTE .STK-MED ONE
Acetaminophen [Tylenol] 1,000 mg PO NOW STA
Abnormal Lab Results
03/08/24
04:12
WBC 11.5 H 10^3/uL
(4.8-10.8)
RBC 3.01 L 10^6/uL
(4.70-6.10)
Hgb 9.5 L g/dL
(13.0-18.0)
Hct 27.6 L %
(39.0-52.0)
MCH 31.6 H pg
(27.0-31.0)
Abs Immat Gran (auto) 0.5 H 10^3/uL
(0-0.05)
Absolute Neuts (auto) 7.6 H 10^3/uL
(1.4-6.5)
Absolute Monos (auto) 0.9 H 10^3/uL
(0.1-0.6)
Immature Gran % 4.5 H %
(0-0.5)
Lymphocytes % 19.0 L %
(20.5-51.1)
Magnesium 1.3 L mg/dl
(1.6-2.3)
Total Protein 5.5 L g/dl
(6.3-8.2)
Albumin 3.3 L g/dl
(3.5-5.0)
03/08/24 04:12
03/08/24 04:12
Vital Signs
Initial and Last Documented VS:
Initial Vital Signs
Temp Pulse Resp BP Pulse Ox
97.7 F 95 26 159/98 94
03/08/24 02:26 03/08/24 02:26 03/08/24 02:26 03/08/24 02:26 03/08/24 02:26
Last Documented Vital Signs
Temp Pulse Resp BP Pulse Ox
97.7 F 86 18 159/98 92
03/08/24 02:26 03/08/24 05:15 03/08/24 05:15 03/08/24 05:00 03/08/24 05:00
<LYDIA Lnage - Last Filed: 03/08/24 06:02>
MDM/Problems Addressed
Differential Diagnosis Includes:
hypertensive urgency
<LYDIA Lange - Last Filed: 03/08/24 06:02>
*Critical Care Note
Total Time (30-74mins, 75-104mins- exclusive of procedures): Not Applicable
<Josué Clark DO - Last Filed: 03/08/24 05:50>
*Pulse Oximetry
Patient hypoxic: no
*EKG
Interpreted by ED Provider?: Yes
EKG Intrepretation Date: 03/08/24
Interpretation: normal
Comparison EKG: no changes
Heart Rate: 87
Rate: normal
Rhythm: sinus
[place]: normal axis
Interval: normal interval
QRS Pattern: normal QRS
Ischemia: no ischemia
*Critical Care Note
Total Time (30-74mins, 75-104mins- exclusive of procedures): Not Applicable
<LYDIA Lange - Last Filed: 03/08/24 06:02>
Update Note
Update Note:
03/08/2024537 AM: Reviewed lab work with patient and friend. Patient did request oxygen. He states that he feels better while on oxygen. I did offer him admission to the hospital he is not sure at this time. He is discussing it with his friend.
Generally speaking, patient appears better now than he did when he first got here.
03/08/2024 0547: Pt states that he is feeling better on supplemental oxygen. Reports that he would feel more comfortable being admitted to the hospital and is agreeable with this plan.
<Josué Clark DO - Last Filed: 03/08/24 05:50>
Update Note
Update Note:
03/08/2024537 AM: Reviewed lab work with patient and friend. Patient did request oxygen. He states that he feels better while on oxygen. I did offer him admission to the hospital he is not sure at this time. He is discussing it with his friend.
Generally speaking, patient appears better now than he did when he first got here.
ED Attending Note
<LYDIA Lange - Last Filed: 03/08/24 06:02>
-
Portions of this chart may have been created with voice recognition software.� Occasional wrong word or��sound alike� substitutions may have occurred due to the inherent limitations of voice recognition software.
<Josué Clark DO - Last Filed: 03/08/24 05:50>
ED Attending Note
Patient seen and examined by attending physician: Yes
I performed the substantive portion of visit, reviewed & personally made and approve the management plan that is documented in note by myself or RAMIN.: Yes
ED Attending Note:
Pleasant 73-year-old male that presents with headache and hypertension. Patient was admitted to [facility] for pneumonia on March 04. He was discharged yesterday evening. He states that he had a headache and hypertension at discharge. Tonight he
awakened from sleep with worsening headache. Patient does report some ankle edema. Patient was seen in conjunction with the PA student. I have reviewed and agree with the history and treatment plan presented. On my independent physical exam,
patient is awake, alert, and oriented x3, minimal acute distress. Patient resting comfortably. 2+ pitting edema bilaterally. Heart is regular rate and rhythm. Lungs clear to auscultation bilaterally.
Discharge Plan
Departure
Patient Disposition: Admit
Date of Disposition: 03/08/24
Time of Disposition: 05:49
Admit to: Telemetry
Presentation/result/management discussed w/ accepting MD/DO: Hospitalist
Discharge Problem:
Pneumonia, Acute dyspnea, CHF (congestive heart failure)
Prescriptions:
No Action
pantoprazole [Protonix] 40 mg Tablet,Delayed Release (Dr/Ec)
40 mg PO DAILY
hydrocortisone 10 mg Tablet
20 mg PO DAILY
hydrocortisone 10 mg Tablet
10 mg PO DAILY@1300
levothyroxine [Synthroid] 112 mcg Tablet
112 mcg PO DAILY
Anoro Ellipta 62.5-25 mcg/actuation Blister With Device
1 inh INHALATION R DAILY
albuterol sulfate 2.5 mg /3 mL (0.083 %) Solution For Nebulization
2.5 mg INHALATION R Q4HPRN PRN (Reason: SOB)
magnesium oxide 420 mg Tablet
420 mg PO DAILY
loperamide 2 mg Capsule
2 mg PO QID PRN (Reason: diarrhea)
thiamine HCl (vitamin B1) 100 mg Tablet
100 mg PO DAILY
gabapentin 300 mg Capsule
300 mg PO BID
doxycycline hyclate 100 mg Capsule
100 mg PO Q12 5 Days Qty: 10 0RF
cefdinir 300 mg Capsule
300 mg PO Q12 5 Days Qty: 10 0RF
Referrals:
Savannah Love CRNP [Family Provider] -
Interventions
Interventions:
*Risk Screen - Suicide Last Done: 03/08/24 02:26
*General Assessment Last Done: 03/08/24 02:26
*Neglect/Abuse Screening Last Done: 03/08/24 02:26
ED- Fall Risk Assessment Last Done: 03/08/24 02:26
*ED COVID-19 Vaccine History Last Done: 03/08/24 02:26
ED- Cardiac Assessment Last Done: 03/08/24 04:04
ED- Neurological Assessment Last Done: 03/08/24 04:04
ED- Pulmonary Assessment Last Done: 03/08/24 04:04
Discharge Date and Time
Print Language: KINYARWANDA
[2024-03-08 04:21] LABS: % Basophils 0.7 % (0-2); % Immature Granulocytes 4.5 % (0-0.5); % Monocytes 7.9 % (1.7-9.3); % Neutrophils 66.9 % (42.2-75.2); Absolute Basophils 0.1 10^3/uL (0-0.2); Absolute Eosinophils 0.1 10^3/uL (0-0.7); Absolute Immature Granulocytes 0.5 10^3/uL (0-0.05); Absolute Lymphocytes 2.2 10^3/uL (1.2-3.4); Absolute Monocytes 0.9 10^3/uL (0.1-0.6); Absolute Neutrophils 7.6 10^3/uL (1.4-6.5); Hematocrit 27.6 % (39.0-52.0); Hemoglobin 9.5 g/dL (13.0-18.0); Mean Corp Hgb Conc. 34.4 g/dL (33.0-37.0); Mean Corpuscular Hgb 31.6 pg (27.0-31.0); Mean Corpuscular Volume 91.7 fL (80.0-94.0); Mean Platelet Volume 9.5 fL (7.4-10.4); Nucleated Red Blood Cells % 0 % (-); Platelet Count 312 10^3/uL (130-400); Red Blood Cell Count 3.01 10^6/uL (4.70-6.10); Red Cell Dist. Width 13.1 % (11.5-14.5); White Blood Cell Count 11.5 10^3/uL (4.8-10.8)
[2024-03-08 04:29] LABS: NT-proBNP 8640 pg/ml
[2024-03-08 04:38] LABS: Troponin I 0.018 ng/ml
[2024-03-08 04:41] LABS: APTT 33.9 Sec (23.4-35.0)
[2024-03-08 04:46] LABS: ALT (SGPT) < 10 U/L (0-50); AST (SGOT) 19 U/L (17-59); Albumin 3.3 g/dl (3.5-5.0); Alkaline Phosphatase 74 U/L (38-126); Blood Urea Nitrogen 15 mg/dl (9-20); Calcium 9.9 mg/dl (8.4-10.2); Carbon Dioxide 30 mmol/L (22-30); Chloride 104 mmol/L (98-107); Estimated Creatinine Clearance 55 ml/min; Glucose 89 mg/dl (70-99); Magnesium 1.3 mg/dl (1.6-2.3); Potassium 3.6 mmol/L (3.5-5.1); Sodium 140 mmol/L (135-145); Total Bilirubin 0.3 mg/dl (0.2-1.3); Total Protein 5.5 g/dl (6.3-8.2); eGFR > 60.00
[2024-03-08] MEDS: TYLENOL 1000 MG PO (05:58)
--- NOTE | 2024-03-08 06:09 | HPS.HSE ---
Family Physician
-
Family Physician: CÉSAR Castorena
Chief Complaint
-
Hi BP, ankle edema
History of Present Illness
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 Recently he
was admitted to [facility] for 29 days due to ETOH WDS.
He was admitted to [facility] 03/04 with acute hypoxic respiratory failure (resolved) due to community-acquired pneumonia DC'd yesterday.
Returned to ER this hrs poorly control BP as high as 190/90 , RIVER and b/l akle edema started 2 weeks ago
Note he gained 9.2 lbs since 03/04/24
Medical History
Past Medical History
Past Medical History: Reports Other
Additional Past Medical History:
Cancer (Lung cancer), COPD, GERD and Other (Alcohol abuse/tobacco abuse)
Past Surgical History: Reports Other (hernia repair )
Additional Past Surgical History:
hernia repair
Social History
Tobacco: Smoker
Alcohol: Chronic Alcoholic
Drug: None
Personal:
Living: With Family
Family History
Family History: Not pertinent
Allergies / Home Medications
Allergies reflects when Allergies were last updated in [facility].
Home Medications with original date entered in [facility]
Allergy/Medication List:
Allergies
Allergy/AdvReac Type Severity Reaction Status Date / Time
No Known Allergies Allergy Verified 03/04/24 02:22
Home Medications
albuterol sulfate 2.5 mg/3 mL (0.083 %) solution for nebulization 2.5 mg inhalation R Q4HPRN PRN SOB 11/20/23
hydrocortisone 10 mg tablet 10 mg PO DAILY@1300 11/20/23
hydrocortisone 10 mg tablet 20 mg PO DAILY 11/20/23
levothyroxine 112 mcg tablet (Synthroid) 112 mcg PO DAILY 11/20/23
pantoprazole 40 mg tablet,delayed release (Protonix) 40 mg PO DAILY 11/20/23
umeclidinium 62.5 mcg-vilanterol 25 mcg/actuation powdr for inhalation (Anoro Ellipta) 1 inh inhalation R DAILY 11/20/23
fluticasone furoate 100 mcg/actuation blister powder for inhalation 1 inh inhalation DAILY 03/04/24
gabapentin 300 mg capsule 300 mg PO BID 03/04/24
loperamide 2 mg capsule 2 mg PO QID PRN diarrhea 03/04/24
magnesium oxide 420 mg tablet 420 mg PO DAILY 03/04/24
thiamine HCl (vitamin B1) 100 mg tablet 100 mg PO DAILY 03/04/24
Review of Systems
-
Constitutional: Reports No Symptoms
EENT: Reports No Symptoms
Cardiac: Reports See HPI
Abdomen/GI: Reports No Symptoms
: Reports No Symptoms
Musculoskeletal: Reports Edema
Skin: Reports No Symptoms
Neurological: Reports No Symptoms
Endocrine: Reports No Symptoms
Hematologic/Lymphatic: Reports No Symptoms
Psych: Reports No Symptoms
Physical Exam
Vital Signs
Vital Signs
Temp Pulse Resp BP Pulse Ox
97.7 F 92 17 159/98 96
03/08/24 02:26 03/08/24 06:00 03/08/24 06:00 03/08/24 05:00 03/08/24 06:00
Physical Exam
General: Comfortable and Other (sleeping s/p ativan ); No Conversant
HEENT: NormoCephalic and Anicteric
Respiratory: Rales (at bases ), Non Labored Respirations and Other (limited exam )
Cardiac: S1/S2 and Tachycardia
GI: Soft, Non Tender, Non Distended and Normal Bowel Sounds
Rectal: Deferred by Provider
Genito-urinary: Deferred by me
Musculoskeletal: Other (b/l distal Kranthi edema )
Skin: Warm and Dry; No Rash
Neuro: Other (sleeping s/p ativan )
Laboratory Results
-
03/08/24 04:12
03/08/24 04:12
Laboratory Results
PT 13.0 Sec (11.4-14.6) 03/08/24 04:12
INR 1.00 03/08/24 04:12
APTT 33.9 Sec (23.4-35.0) 03/08/24 04:12
Total Bilirubin 0.3 mg/dl (0.2-1.3) 03/08/24 04:12
AST 19 U/L (17-59) 03/08/24 04:12
ALT < 10 U/L (0-50) 03/08/24 04:12
Alkaline Phosphatase 74 U/L (38-126) 03/08/24 04:12
Troponin I Cancelled 03/08/24 04:07
Data Reviewed
-
Diagnostic Radiology: Other (pending CXR )
Lab Data: Labs Reviewed by me
Impression/Plan
-
Reviewed VS: Afebrile unremarkable RR 18 POx 93- 94 NC O2 1 L
Wt 75.4 kg ( 03/04/24) ----> 79 kg ( 03/08/24)
Gained 4.6 kg = 9.2 lb
Data
WCC 11.5 - was 13.9 0n 03/07/24
Hgb 9.5
Unremarkable BMP
NEG TPNI
proBNP 8640 - was 1290 on 03/04/24
EKG
NORMAL SINUS RHYTHM
NORMAL ECG
WHEN COMPARED WITH ECG OF 04-MAR-2024 02:37,
T WAVE INVERSION LESS EVIDENT IN INFERIOR LEADS
NONSPECIFIC T WAVE ABNORMALITY NO LONGER EVIDENT IN LATERAL LEADS
03/08/24 CXR ordered but pending
03/04/24 CXR
Diffuse interstitial and airspace opacity is demonstrated throughout the right hemithorax, most pronounced in the right mid to lower lung zone, consistent with pneumonia. Possible subtle infiltrate versus atelectasis at the left lung base
Last hospitalist admission: 03/04/24 - 03/07/24
Principal Diagnosis:
Chronic Diagnoses:
Lung cancer follows at [facility]
history of Alcohol use disorder
Adrenal insufficiency on hydrocortisone
Hypothyroidism on Synthroid
ASSESSMENT & PLAN
Acute CHF( NOS) due to Volume expansion
Uncontrol HTN seems like volume mediated
Associated acute hypoxic RF : mild , on 2 L NC O2
proBNP 8640 - was 1290 on 03/04/24
No prior HX CHF
- IV Lasix 40 now
- f/u daily wt , IOs
- ECHO in AM
- Pending CXR
- DCA card consult
Recent CAP
- cont PO cefdinir/doxy s/p Zosyn to complete a total 7-10-day course
- O2 supplement to keep POx > 93
HX COPD: No AE
- cont Mucinex, Acapella
- cont Spiriva
HX Lung cancer follows at [facility]
Currently not on treatment as immunotherapy postponed due to myositis.
Alcohol use disorder
- stable
Adrenal insufficiency
-on [employer] hydrocortisone
Hypothyroidism
- Synthroid
DVT Px: LMWH
Code: Full
IP TLM
[2024-03-08] MEDS: LASIX 40 MG IV ×2 (07:02→10:12)
[2024-03-08] MEDS: VIBRAMYCIN 100 MG PO ×2 (10:12→20:00)
[2024-03-08] MEDS: NEURONTIN 300 MG PO ×2 (10:12→20:00)
[2024-03-08] MEDS: SYNTHROID 112 MCG PO (10:12)
[2024-03-08] MEDS: PROTONIX 40 MG PO (10:12)
[2024-03-08] MEDS: VITAMIN B1 100 MG PO (10:12)
[2024-03-08] MEDS: HYDROCORTONE/CORTEF 20 MG PO (10:12)
[2024-03-08] MEDS: OMNICEF 300 MG PO ×2 (10:25→20:00)
--- NOTE | 2024-03-08 11:01 | W.PN.HOSP.TC ---
Today's Communication/Plan
-
see A/P
Assessment / Plan
Assessment / Plan
HPI: 73 yo M PMH Lung cancer follows at [facility], history of Alcohol use disorder, Adrenal insufficiency on hydrocortisone, Hypothyroidism on Synthroid, who was discharged the day prior for community-acquired pneumonia, and retuned
due to high BP, RIVER and b/l ankle edema apparently for 2 weeks.
Admit for acute CHF.
A/P:
# Acute CHF, likely new onset CHF, unknown type
# HTN urgency
proBNP 8640, was 1290 on 03/04/24
Cont IV Lasix 40 daily, f/u daily wt, I/O
Start Coreg 3.125 mg BID
Check echo
Card CS
# Acute hypoxic resp insufficiency, resolved
weaned 2L NC back to RA
# Recent CAP
cont PO cefdinir/doxy for 5 more days
# COPD
cont Mucinex, Acapella
cont Spiriva
# HX Lung cancer follows at [facility]
Currently not on treatment as immunotherapy postponed due to myositis.
# Alcohol use disorder
stable
# Adrenal insufficiency
on [employer] hydrocortisone
# Hypothyroidism
Synthroid
DVT Px: LMWH
Code: Full
DW RN
Anticipated Discharge: 24 - 48 hours
Subjective/Interval History
-
Date of Service: March 08, 2024
Objective Data
-
Labs:
Laboratory Results
03/08/24
04:12
WBC 11.5 H
Hgb 9.5 L
Hct 27.6 L
Plt Count 312
PT 13.0
INR 1.00
APTT 33.9
Sodium 140
Potassium 3.6
Chloride 104
Carbon Dioxide 30
BUN 15
Creatinine 1.2
Glucose 89
Calcium 9.9
Total Bilirubin 0.3
AST 19
ALT < 10
Alkaline Phosphatase 74
Vital Signs:
Vital Signs
Temp Pulse Resp BP Pulse Ox
36.9 C 99 18 143/92 92
03/08/24 08:04 03/08/24 10:12 03/08/24 08:04 03/08/24 10:12 03/08/24 08:04
I&O
03/07/24 03/08/24 03/09/24
06:59 06:59 06:59
Output Total 250 / 250 1100 / 1100
Balance -250 / -250 -1100 / -1100
Review of Systems
-
Respiratory: Reports Trouble Breathing
Physical Exam
-
General: Well Developed, Well Nourished, Comfortable and Conversant
HEENT: Normocephalic, Atraumatic, Nose Appears Normal and Ears Appear Normal; Negative Oxygen
Respiratory: Clear to Auscultation, Crackles (mild) and Non Labored Respirations; Negative Wheezes or Accessory Resp Muscle Use
Cardiac: Regular Rhythm and S1/S2
GI: Soft, Nontender, Nondistended and Normal Bowel Sounds
Skin: Warm and Dry
Neuro: Awake, Alert, Oriented and AO x 3
Psych: Calm and Intact Judgement/Insight
Data Reviewed
-
CT Scan: Report Reviewed by me
Labs: Labs Reviewed by me
--- NOTE | 2024-03-08 11:49 | CON.CAR ---
Addendum entered and electronically signed by Kobe Mi MD 03/08/24 16:27:
I saw and examined the patient.
The Efficiency Engineer's note was reviewed and I agree with the note.
Comment:
GEN: No distress, awake, Ox3
HEENT: supple, anicteric, mmm
LUNGS: dec Bs at bases
CV: Reg, S1/S2, / syst LSB, S4+
ABD: soft, BS+, NT/ND
EXT: +1 edema
NEURO: Gross non-focal
SKIN: No rash
Plan:
He has a past medical history of metasatic melanoma with mets to the lungs and chest wall, with multiple recent admissions for pneumonia, influenza, alcohol withdrawal. He has been treated with a left chest wall resection and immunotherapy. He
also has a recent history of myositis. He was discharged yesterday from [facility] for another admission for pneumonia. At home he felt worse with orthopnea, shortness of breath and headache and presented to the emergency room with acute
heart failure of unknown EF. He denies any chest pains. Does have a history of alcohol abuse but states he has not been drinking. He was given significant IV fluids while hospitalized.
Continue IV diuresis with Lasix 40 mg IV twice daily.
Check echocardiogram. CHF education.
Agree with starting carvedilol and follow blood pressure. He likely will need further afterload reduction with BARBIE inhibitor/angiotensin receptor mayela.
After we evaluate his echocardiogram we will give further recommendations regarding medication titration and possible Jardiance/Farxiga.
Original Note:
Consultation
Consultation Request
Date/Time Consultation Requested: 03/08/24
Date/Time Consultation Performed: 03/08/24
Requesting Provider: Dr. Sanford
Performing Provider: Dr. Mi
Reason for Consultation: Acute HF
Medical History
-
History of Present Illness:
Patient came to [facility] early this morning with RIVER and high blood pressure and is now admitted with acute HF so cardiology has been consulted. Patient is a poor historian and says he does not know the current status of his cancer diagnosis or treatment
and that he feels like a blank slate because he doesn't recall a lot of information. Extensive research in [facility] [place] and [facility] to compile impression as noted above. Patient was diagnosed with metastatic melanoma in 2021 and had an extensive left
anterior chest wall into axilla resection in 03/2022 at [facility]. He later had metastatic disease found on surveillance CT and at some point was placed on immunotherapy with OPDUALAG. 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 Patient was
referred to cardiology in 04/[address] scan suggested moderate coronary artery calcifications and patient was recommended to start atorvastatin and aspirin. He says he never started aspirin and that [facility] told him to stop atorvastatin for unclear
reasons. 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 He does follow with endocrinology at [facility] for adrenal insufficiency and is chronically on hydrocortisone. Most recently patient had a 20 day
admission for influenza and ETOH withdrawal at [facility]. He was able to be discharged to home and followed up with Oncology at [facility] afterwards and was able to resume OPDUALAG. Then he was admitted to [facility] again 02/02/24 until 03/01/24 with PNA and ETOH
withdrawal with DTs. He was only home for 3 days before he was admitted to with PNA. During that admission he was given antibiotics IV and a total of 6.3 L IVFs. Recorded bed scale weight was only up about 4 lbs at time of discharge. Patient says
that last night he had a RIVER and went to bed, but woke up hours later with a worse RIVER and when he checked his BP it was elevated so he came to [facility]. pro-BNP was 1290 on 03/04/24 admission, but now up to 8640. He was given Lasix 40 mg IV x1 at 0617 and
another Lasix 40 mg IV at 1012 this AM and reports increased urine output.
PMH:
Recent admission for PNA 03/04/24 until 03/07/24
Recent admission to [facility] for PNA, ETOH withdrawal with DTs 02/02/24 until 03/01/24
Recent admission to [facility] for influenza, SIADH, ETOH withdrawal and immunotherapy induced hepatitis 11/06/23 until 11/26/23
h/o metastatic melanoma with lung mets
left anterior chest wall and axilla resection at [facility] 03/2022
chemotherapy with Opdualag (nivolumab and relatlimab) 06/22/23, 07/20/23, 08/17/23 and 01/05/24
no new sites suspicious for metastatic disease in the chest, abdomen or pelvis by CT 11/12/23
Adrenal insufficiency
Hypothyroidism
COPD
Smoker
Denies ETOH use disorder, but 2 admissions for ETOH withdrawal with DTs in the last 4 months
Past Medical History
Past Medical History: Other (in HPI)
Past Surgical History: Other (left anterior chest wall and axilla resection for metastatic melanoma)
Social History
Tobacco: Smoker
Alcohol: Other (he says he drinks less than once a month, but there is a h/o withdrawal at [facility] in November, he says they took his car)
Drug: None (he denies)
Personal: Single
Living: Alone (he says he [place] alone [place]
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
Family History
Family History: Other (both parents and 2 siblings have , but he doesn't know why, his adult children don't talk to him)
Allergies / Home Medications
Allergy/AdvReac Type Severity Reaction Status Date / Time
No Known Allergies Allergy Verified 03/08/24 02:26
�Medication �Instructions �Recorded �Confirmed �Type
albuterol sulfate 2.5 mg/3 mL 2.5 mg inhalation R Q4HPRN PRN SOB 11/20/23 03/08/24 History
(0.083 %) solution for nebulization
hydrocortisone 10 mg tablet 10 mg PO NOON Anti-Inflammatory 11/20/23 03/08/24 History
hydrocortisone 10 mg tablet 20 mg PO DAILY Anti-Inflammatory 11/20/23 03/08/24 History
levothyroxine 112 mcg tablet 112 mcg PO DAILY Thyroid 11/20/23 03/08/24 History
(Synthroid)
pantoprazole 40 mg tablet,delayed 40 mg PO DAILY Gastrointestinal 11/20/23 03/08/24 History
release (Protonix) Issue
umeclidinium 62.5 mcg-vilanterol 1 inh inhalation R DAILY 11/20/23 03/08/24 History
25 mcg/actuation powdr for Lung/Breathing Issues
inhalation (Anoro Ellipta)
gabapentin 300 mg capsule 300 mg PO BID Neurological 03/04/24 03/08/24 History
Condition
magnesium oxide 420 mg tablet 420 mg PO DAILY Electrolyte 03/04/24 03/08/24 History
Repletion
thiamine HCl (vitamin B1) 100 mg 100 mg PO DAILY Supplement 03/04/24 03/08/24 History
tablet
cefdinir 300 mg capsule 300 mg PO Q12 5 days #10 caps 03/07/24 03/08/24 Rx
doxycycline hyclate 100 mg capsule 100 mg PO Q12 5 days #10 caps 03/07/24 03/08/24 Rx
acetaminophen 500 mg tablet 1,000 mg PO Q6HPRN PRN mild pain 03/08/24 03/08/24 History
(Tylenol Extra Strength)
cholecalciferol (vitamin D3) 25 25 mcg PO DAILY Supplement 03/08/24 03/08/24 History
mcg (1,000 unit) tablet (Vitamin
D3)
fluticasone furoate 100 1 inh inhalation R DAILY 03/08/24 03/08/24 History
mcg/actuation blister powder for Lung/Breathing Issues
inhalation (Arnuity Ellipta)
potassium 75 mg tablet 75 mg PO DAILY Supplement 03/08/24 03/08/24 History
zinc sulfate 50 mg zinc (220 mg) 50 mg PO DAILY Supplement 03/08/24 03/08/24 History
tablet
Review of Systems
-
History Source: Patient
All other systems: Negative unless noted
Physical Exam
Vital Signs
Temp Pulse Resp BP Pulse Ox
97.9 F 100 18 147/89 93
03/08/24 11:00 03/08/24 11:00 03/08/24 11:00 03/08/24 11:00 03/08/24 11:00
GEN: NAD. AAOx3
HEENT: EOMI, MMM
LUNGS: CTA B/L, no wheezes or rales
CV: Reg, S1/S2, no murmur
ABD: soft, BS+, NT, ND
EXT: +2 B/L LE edema. No clubbing, cyanosis or lesions.
NEURO: Gross non-focal
SKIN: Warm, dry and pink. No rash
Lab Results
03/08/24 04:12
03/08/24 04:12
Troponin I Cancelled 03/08/24 04:07
Udl-C-Izaifecccyb Pept 8640 pg/ml 03/08/24 03:51
Impression / Plan
-
PCP: Dr. Abebe
Pulm and Oncology: Dr. Adonay Bartlett at [facility]
Cardiology: Dr. Jacobs, last seen 05/20/23
Impression:
Acute hypoxic respiratory insufficiency
HTN urgency
Acute HF unknown EF
Recent admission for PNA 03/04/24 until 03/07/24
Recent admission to [facility] for PNA, ETOH withdrawal with DTs 02/02/24 until 03/01/24
Recent admission to [facility] for influenza, SIADH, ETOH withdrawal and immunotherapy induced hepatitis 11/06/23 until 11/26/23
h/o metastatic melanoma with lung mets
left anterior chest wall and axilla resection at [facility] 03/2022
chemotherapy with Opdualag (nivolumab and relatlimab) 06/22/23, 07/20/23, 08/17/23 and 01/05/24
no new sites suspicious for metastatic disease in the chest, abdomen or pelvis by CT 11/12/23
Adrenal insufficiency
Hypothyroidism
COPD
Smoker
Denies ETOH use disorder, but 2 admissions for ETOH withdrawal with DTs in the last 4 months
Hypomagnesemia
Echo 03/08/24: Study pending
Plan:
-Patient came to [facility] early this morning with RIVER and high blood pressure and is now admitted with acute HF so cardiology has been consulted. Patient is a poor historian and says he does not know the current status of his cancer diagnosis or
treatment and that he feels like a blank slate because he doesn't recall a lot of information. Extensive research in [facility] [place] and [employer] to compile impression as noted above. Patient was diagnosed with metastatic melanoma in 2021 and had an extensive
left anterior chest wall into axilla resection in 03/2022 at [facility]. He later had metastatic disease found on surveillance CT and at some point was placed on immunotherapy with OPDUALAG. 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
Patient was referred to cardiology in 04/[address] scan suggested moderate coronary artery calcifications and patient was recommended to start atorvastatin and aspirin. He says he never started aspirin and that [facility] told him to stop atorvastatin
for unclear reasons. 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 He does follow with endocrinology at [facility] for adrenal insufficiency and is chronically on hydrocortisone. Most recently patient had
a 20 day admission for influenza and ETOH withdrawal at [facility]. He was able to be discharged to home and followed up with Oncology at [facility] afterwards and was able to resume OPDUALAG. Then he was admitted to [facility] again 02/02/24 until 03/01/24 with PNA and
ETOH withdrawal with DTs. He was only home for 3 days before he was admitted to with PNA. During that admission he was given antibiotics IV and a total of 6.3 L IVFs. Recorded bed scale weight was only up about 4 lbs at time of discharge. Patient
says that last night he had a RIVER and went to bed, but woke up hours later with a worse RIVER and when he checked his BP it was elevated so he came to [facility]. pro-BNP was 1290 on 03/04/24 admission, but now up to 8640. He was given Lasix 40 mg IV x1 at 0617
and another Lasix 40 mg IV at 1012 this AM and reports increased urine output.
-CXR is not obvious for acute HF and no orthopnea or PND, but pro-BNP is elevated and he has acute on chronic LE edema. Urine output has been brisk following Lasix 40 mg IV at 0617 and again at 1012 this AM. Patient was not taking a diuretic prior
to admission. Lasix 40 mg IV daily now ordered.
-Check echo, patient says he does not remember ever having an echo before.
-Follow labs, patient with a h/o SIADH. He was not following any type of salt or fluid restriction prior to admission.
-Magnesium supplement ordered for low magnesium
-Volume overload might be related to the 6+ liters of IVFs he received during his 03/04/24 until 03/07/24 admission. Await echo.
-It is possible that acute volume overload caused HTN urgency. BP is a bit better with diuresis. Hospitalist attending has started Coreg 3.125 mg BID. Consider adding additional meds pending echo.
-Patient also has a h/o chronic adrenal insufficiency and takes hydrocortisone 20 mg AM and 10 mg afternoon daily has been ordered. Patient was given stress dose steroids last admission when he had PNA.
-Patient has had 2 prolonged admissions for ETOH withdrawal including DTs in the past 4 months. He tells some people that he drinks once a month or less and tells other he drinks 2 hard alcohol drinks a day.
-Troponin is normal and ECG reviewed by me is SR without acute ischemic changes.
[2024-03-08] MEDS: SPIRIVA RESPIMAT 2.5 MCG INH (12:21)
[2024-03-08] MEDS: FLOVENT 44 MCG INHALER INH (12:21)
[2024-03-08] MEDS: COREG 3.125 MG PO ×2 (12:58→20:00)
[2024-03-08] MEDS: MAGNESIUM OXIDE 500 MG PO (13:00)
[2024-03-08] MEDS: CORTEF 10 MG PO (13:00)
[2024-03-08] MEDS: TYLENOL 650 MG PO ×2 (15:41→21:42)
[2024-03-08] MEDS: LOVENOX 40 MG SC (17:07)
--- NOTE | 2024-03-08 18:28 | PTCARENOTE ---
Patient admitted from the ER into room 413-01. Vital signs stable. Oriented to room, use of call ha and fall precautions. Patient verbalizes understanding of education. Oriented to use of bed and TV controls. Verbalizes understanding. Patient
eating dinner at this time and denies complaints.
[2024-03-08] MEDS: FLOVENT 44 MCG INHALER 2 PUFF INH (20:22)
[2024-03-08] MEDS: VENTOLIN NEBULES 2.5 MG INH (20:22)
[2024-03-09 03:41] VITALS: BP 105/63
[2024-03-09] MEDS: TYLENOL 650 MG PO ×3 (05:36→20:33)
[2024-03-09] MEDS: SYNTHROID 112 MCG PO (05:36)
[2024-03-09 06:00] VITALS: BMI 24.3
[2024-03-09 07:55] VITALS: BP 163/94
[2024-03-09] MEDS: SPIRIVA RESPIMAT 2.5 MCG 2 PUFF INH (08:10)
[2024-03-09] MEDS: FLOVENT 44 MCG INHALER 2 PUFF INH ×2 (08:10→20:01)
[2024-03-09] MEDS: STRIVERDI RESPIMAT 2 PUFF INH (08:10)
[2024-03-09] MEDS: LASIX 40 MG IV ×2 (08:28→15:01)
[2024-03-09] MEDS: COREG 3.125 MG PO ×2 (08:36→20:32)
[2024-03-09] MEDS: HYDROCORTONE/CORTEF 20 MG PO (08:36)
[2024-03-09] MEDS: NEURONTIN 300 MG PO ×2 (08:36→20:32)
[2024-03-09] MEDS: VIBRAMYCIN 100 MG PO ×2 (08:36→20:32)
[2024-03-09] MEDS: VITAMIN B1 100 MG PO (08:36)
[2024-03-09] MEDS: PROTONIX 40 MG PO (08:36)
[2024-03-09] MEDS: OMNICEF 300 MG PO ×2 (08:37→20:32)
[2024-03-09 09:13] LABS: Hematocrit 31.6 % (39.0-52.0); Hemoglobin 10.8 g/dL (13.0-18.0); Mean Corp Hgb Conc. 34.2 g/dL (33.0-37.0); Mean Corpuscular Hgb 31.7 pg (27.0-31.0); Mean Corpuscular Volume 92.7 fL (80.0-94.0); Mean Platelet Volume 9.4 fL (7.4-10.4); Platelet Count 361 10^3/uL (130-400); Red Blood Cell Count 3.41 10^6/uL (4.70-6.10); White Blood Cell Count 12.8 10^3/uL (4.8-10.8)
--- NOTE | 2024-03-09 09:31 | W.PN.CARDCBS ---
Addendum entered and electronically signed by Charlotte Membreno MD 03/09/24 14:53:
I saw and examined the patient.
The Renovator Machine Operator's note was reviewed and I agree with the note.
Comment:
I discussed echocardiogram with patient. Echocardiogram preliminary with low normal left ventricular function. Also severe mitral regurgitation. As an outpatient once decompressed would re assess echocardiogram.
Avoid alcohol.
To my exam patient is still volume overloaded today. We will give an extra 40 of IV Lasix and reassess tomorrow. proBNP 03/08 was 8000 (improved but not at baseline). Replete potassium. Replete magnesium. Will need to be followed very closely as
an outpatient.
Could consider addition of spironolactone if we feel that patient will be compliant with follow-up labs as an outpatient. This may help overall volume status and potassium.
He tells me from an oncology point of view that he is going to be starting likely new treatment when he goes back to [facility]. Given new diagnosis of heart failure will need to follow closely. This was also discussed with the
patient.
Original Note:
Today's Communication / Plan
-
Continue IV lasix
Echo pending
Replete electrolytes
Follow up arranged
Impression / Plan
-
PCP: Dr. Abebe
Pulm and Oncology: Dr. Adonay Bartlett at [facility]
Cardiology: Dr. Jacobs, last seen 05/20/23
Impression:
Acute hypoxic respiratory insufficiency
HTN urgency
Acute HF unknown EF
Hypokalemia
Hypomagnesemia
Recent admission for PNA 03/04/24 until 03/07/24
Recent admission to [facility] for PNA, ETOH withdrawal with DTs 02/02/24 until 03/01/24
Recent admission to [facility] for influenza, SIADH, ETOH withdrawal and immunotherapy induced hepatitis 11/06/23 until 11/26/23
h/o metastatic melanoma with lung mets
left anterior chest wall and axilla resection at [facility] 03/2022
chemotherapy with Opdualag (nivolumab and relatlimab) 06/22/23, 07/20/23, 08/17/23 and 01/05/24
no new sites suspicious for metastatic disease in the chest, abdomen or pelvis by CT 11/12/23
Adrenal insufficiency
Hypothyroidism
COPD
Smoker
Denies ETOH use disorder, but 2 admissions for ETOH withdrawal with DTs in the last 4 months
Hypomagnesemia
Echo 03/09/24: Study completed, report pending
Plan:
-Presented with acute heart failure. Diuresing with IV lasix 40mg daily w/ good response. Weight down 3lbs this admission. Creat stable at 1.2
-Will continue IV lasix and will give additional dose this afternoon. Continue daily weights, I&Os.
-Echo pending 03/09/2024. Await results.
-CHF education
-He has h/o SIADH. Na stable at 137. K down to 3.4 /w mag 1.2.
-Replete both K and mag.
-Volume overload might be related to the 6+ liters of IVFs he received during his 03/04/24 until 03/07/24 admission.
-Continue Coreg 3.125mg BID. BP remains elevated. Would consider additional medical therapy pending results of echo.
-Patient also has a h/o chronic adrenal insufficiency and takes hydrocortisone 20 mg AM and 10 mg afternoon daily has been ordered. Patient was given stress dose steroids last admission when he had PNA.
-Patient has had 2 prolonged admissions for ETOH withdrawal including DTs in the past 4 months. He tells some people that he drinks once a month or less and tells other he drinks 2 hard alcohol drinks a day.
-Follow up arranged.
HPI: Patient came to [facility] early this morning with RIVER and high blood pressure and is now admitted with acute HF so cardiology has been consulted. Patient is a poor historian and says he does not know the current status of his cancer diagnosis or
treatment and that he feels like a blank slate because he doesn't recall a lot of information. Extensive research in [facility] and [place] to compile impression as noted above. Patient was diagnosed with metastatic melanoma in 2021 and had an extensive
left anterior chest wall into axilla resection in 03/2022 at [facility]. He later had metastatic disease found on surveillance CT and at some point was placed on immunotherapy with OPDUALAG. 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
Patient was referred to cardiology in 04/[address] scan suggested moderate coronary artery calcifications and patient was recommended to start atorvastatin and aspirin. He says he never started aspirin and that [facility] told him to stop atorvastatin
for unclear reasons. 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 He does follow with endocrinology at [facility] for adrenal insufficiency and is chronically on hydrocortisone. Most recently patient had
a 20 day admission for influenza and ETOH withdrawal at [facility]. He was able to be discharged to home and followed up with Oncology at [facility] afterwards and was able to resume OPDUALAG. Then he was admitted to [facility] again 02/02/24 until 03/01/24 with PNA and
ETOH withdrawal with DTs. He was only home for 3 days before he was admitted to with PNA. During that admission he was given antibiotics IV and a total of 6.3 L IVFs. Recorded bed scale weight was only up about 4 lbs at time of discharge. Patient
says that last night he had a RIVER and went to bed, but woke up hours later with a worse RIVER and when he checked his BP it was elevated so [facility] pro-BNP was 1290 on 03/04/24 admission, but now up to 8640. He was given Lasix 40 mg IV x1 at 0617
and another Lasix 40 mg IV at 1012 this AM and reports increased urine output.
Progress Note - Sharepoint Application Developer
Subjective
Date of Service: March 09, 2024
Feeling well. No SOB. Edema improving.
Objective
Labs:
03/09/24 08:37
Labs
Hgb 10.8 g/dL (13.0-18.0) L 03/09/24 08:37
Hct 31.6 % (39.0-52.0) L 03/09/24 08:37
Plt Count 361 10^3/uL (130-400) 03/09/24 08:37
PT 13.0 Sec (11.4-14.6) 03/08/24 04:12
INR 1.00 03/08/24 04:12
APTT 33.9 Sec (23.4-35.0) 03/08/24 04:12
Sodium 140 mmol/L (135-145) 03/08/24 04:12
Potassium 3.6 mmol/L (3.5-5.1) 03/08/24 04:12
BUN 15 mg/dl (9-20) 03/08/24 04:12
Creatinine 1.2 mg/dL (0.7-1.3) 03/08/24 04:12
Glucose 89 mg/dl (70-99) 03/08/24 04:12
Troponins
03/08/24 03/08/24
03:51 04:07
Troponin I 0.018 Cancelled
Vital Signs and I&O:
Vital Signs
Temp Pulse Resp BP Pulse Ox
97.8 F 88 18 163/94 92
03/09/24 03:41 03/09/24 08:36 03/09/24 03:41 03/09/24 08:36 03/09/24 03:41
Vital Signs
Temp Pulse Resp BP Pulse Ox
97.8 F 88 18 163/94 92
03/09/24 03:41 03/09/24 08:36 03/09/24 03:41 03/09/24 08:36 03/09/24 03:41
Intake & Output
03/07/24 03/08/24 03/09/24 03/10/24
06:59 06:59 06:59 06:59
Intake Total 480 / 480
Output Total 250 / 250 3100 / 3100
Balance -250 / -250 -2620 / -2620
Physical Exam
Physical Exam
GEN: No distress, awake, alert, orientedx3
HEENT: supple, anicteric, mmm
LUNGS: CTA b/l, no wheezes/rales
CV: Reg, S1/S2, 1/6 syst murmur
EXT: No clubbing or cyanosis, trace edema b/l LE
NEURO: Gross non-focal
SKIN: Warm, dry, no rash
--- NOTE | 2024-03-09 09:35 | W.PN.HOSP.TC ---
Today's Communication/Plan
-
see A/P
Assessment / Plan
Assessment / Plan
HPI: 73 yo M PMH Lung cancer follows at [facility], history of Alcohol use disorder, Adrenal insufficiency on hydrocortisone, Hypothyroidism on Synthroid, who was discharged the day prior for community-acquired pneumonia, and retuned
due to high BP, RIVER and b/l ankle edema apparently for 2 weeks.
Admit for acute CHF.
A/P:
# Acute CHF, likely new onset CHF, unknown type
# HTN urgency, resolved
proBNP 8640, was 1290 on 03/04/24
Cont IV Lasix 40 daily, f/u daily wt, I/O
Started Coreg 3.125 mg BID
Check echo
Card on board
# Acute hypoxic resp insufficiency, resolved
weaned 2L NC back to RA
# Recent CAP
cont PO cefdinir/doxy for 5 more days
# COPD
cont Mucinex, Acapella
cont Spiriva
# HX Lung cancer follows at [facility]
Currently not on treatment as immunotherapy postponed due to myositis.
# Alcohol use disorder
stable
# Adrenal insufficiency
on [employer] hydrocortisone
# Hypothyroidism
Synthroid
DVT Px: LMWH
Code: Full
DW RN
Anticipated Discharge: 24 - 48 hours
Subjective/Interval History
-
Date of Service: March 09, 2024
Objective Data
-
Labs:
Laboratory Results
03/09/24
08:37
WBC 12.8 H
Hgb 10.8 L
Hct 31.6 L
Plt Count 361
Sodium Pending
Potassium Pending
Chloride Pending
Carbon Dioxide Pending
BUN Pending
Creatinine Pending
Glucose Pending
Calcium Pending
Vital Signs:
Vital Signs
Temp Pulse Resp BP Pulse Ox
36.6 C 88 18 163/94 92
03/09/24 03:41 03/09/24 08:36 03/09/24 03:41 03/09/24 08:36 03/09/24 03:41
I&O
03/08/24 03/09/24 03/10/24
06:59 06:59 06:59
Intake Total 480 / 480
Output Total 250 / 250 3100 / 3100
Balance -250 / -250 -2620 / -2620
Review of Systems
-
Respiratory: Denies Trouble Breathing
Physical Exam
-
General: Well Developed, Well Nourished, Comfortable and Conversant
HEENT: Normocephalic, Atraumatic, Nose Appears Normal and Ears Appear Normal; Negative Oxygen
Respiratory: Clear to Auscultation, Crackles (mild) and Non Labored Respirations; Negative Wheezes or Accessory Resp Muscle Use
Cardiac: Regular Rhythm and S1/S2
GI: Soft, Nontender, Nondistended and Normal Bowel Sounds
Musculoskeletal: Edema, Right Lower Extrem (improved) and Edema, Left Lower Extrem (improved)
Skin: Warm and Dry
Neuro: Awake, Alert, Oriented and AO x 3
Psych: Calm and Intact Judgement/Insight
Data Reviewed
-
CT Scan: Report Reviewed by me
Labs: Labs Reviewed by me
[2024-03-09 10:30] LABS: Blood Urea Nitrogen 18 mg/dl (9-20); Calcium 9.8 mg/dl (8.4-10.2); Carbon Dioxide 29 mmol/L (22-30); Chloride 96 mmol/L (98-107); Estimated Creatinine Clearance 55 ml/min; Glucose 162 mg/dl (70-99); Magnesium 1.2 mg/dl (1.6-2.3); Potassium 3.4 mmol/L (3.5-5.1); Sodium 137 mmol/L (135-145); eGFR > 60.00
[2024-03-09 11:45] VITALS: BP 135/74
[2024-03-09] MEDS: CORTEF 10 MG PO (12:15)
[2024-03-09] MEDS: MAGNESIUM OXIDE 500 MG PO ×2 (12:15→20:32)
[2024-03-09 13:16] VITALS: BP 123/74; PULSE 94; O2SAT 91
--- NOTE | 2024-03-09 15:13 | CM ---
Patient seen bedside, initial assessment completed. Patient recently discharged from Hospital. Patient resides in a two story home, 17 steps to second story where patient resides. Patient current with [facility], history of [facility].
Patient has a rolling walker and cane at home. Patient PCP Jayesh Ma, pharmacy used [facility]. CM will continue to follow for all discharge planning needs.
Plan; home with [facility].
[2024-03-09 16:00] VITALS: BP 135/74
[2024-03-09] MEDS: LOVENOX 40 MG SC (17:56)
[2024-03-09] MEDS: TORADOL 15 MG IV (18:04)
[2024-03-09 19:32] VITALS: BP 130/78
[2024-03-09] MEDS: KCL 40 MEQ PO (20:32)
[2024-03-09] MEDS: MELATONIN 5 MG PO (21:04)
[2024-03-10 00:01] VITALS: BP 130/88
[2024-03-10 03:38] VITALS: BP 138/81
[2024-03-10] MEDS: TYLENOL 650 MG PO (04:01)
[2024-03-10] MEDS: SYNTHROID 112 MCG PO (05:05)
[2024-03-10 06:00] VITALS: BMI 23.9
[2024-03-10 07:47] VITALS: BP 102/66
[2024-03-10 07:59] LABS: Hematocrit 32.2 % (39.0-52.0); Hemoglobin 11.2 g/dL (13.0-18.0); Mean Corp Hgb Conc. 34.8 g/dL (33.0-37.0); Mean Platelet Volume 9.4 fL (7.4-10.4); Platelet Count 367 10^3/uL (130-400); White Blood Cell Count 13.2 10^3/uL (4.8-10.8)
[2024-03-10 08:29] LABS: Blood Urea Nitrogen 26 mg/dl (9-20); Calcium 9.7 mg/dl (8.4-10.2); Carbon Dioxide 33 mmol/L (22-30); Chloride 94 mmol/L (98-107); Estimated Creatinine Clearance 50 ml/min; Glucose 79 mg/dl (70-99); Magnesium 1.4 mg/dl (1.6-2.3); Potassium 3.6 mmol/L (3.5-5.1); Sodium 136 mmol/L (135-145); eGFR 58.73
[2024-03-10] MEDS: SPIRIVA RESPIMAT 2.5 MCG 2 PUFF INH (08:30)
[2024-03-10] MEDS: STRIVERDI RESPIMAT 2 PUFF INH (08:30)
[2024-03-10] MEDS: FLOVENT 44 MCG INHALER 2 PUFF INH (08:31)
[2024-03-10] MEDS: COREG PO (08:53)
[2024-03-10] MEDS: HYDROCORTONE/CORTEF 20 MG PO (08:54)
[2024-03-10] MEDS: VIBRAMYCIN 100 MG PO (08:54)
[2024-03-10] MEDS: NEURONTIN 300 MG PO (08:54)
[2024-03-10] MEDS: OMNICEF 300 MG PO (08:54)
[2024-03-10] MEDS: LASIX 40 MG IV (08:54)
[2024-03-10] MEDS: VITAMIN B1 100 MG PO (08:54)
[2024-03-10] MEDS: MAGNESIUM OXIDE 500 MG PO (08:54)
[2024-03-10] MEDS: PROTONIX 40 MG PO (08:54)
--- NOTE | 2024-03-10 09:32 | VATNOTE ---
Attempts to restart IV unsuccessful, another VAT nurse to attempt
[2024-03-10] MEDS: KCL 40 MEQ PO (10:19)
[2024-03-10] MEDS: MAGNESIUM SULFATE 50 IV (10:19)
--- NOTE | 2024-03-10 10:42 | W.PN.CARDCBS ---
Addendum entered and electronically signed by Vaibhav Hall MD 03/10/24 11:14:
I saw and examined the patient.
The WAREHOUSE CONSULTANT or PA's note was reviewed and I agree with the note.
Comment: General: Well developed, well nourished in NAD.
Neck: Supple, no JVD, HJR, carotids +2 B/L, no bruits bilaterally.
Heart: Non displaced PMI, RRR, no murmurs, No S3, S4, no rubs.
Lungs: Clear to auscultation bilaterally, no wheeze, rhonchi, rubs bilaterally,
normal expiratory phase.
Extremities: No clubbing, cyanosis or edema bilaterally.
Neuro: Grossly nonfocal, awake, alert and oriented x3.
Stable cardiology status for discharge on Lasix 40 mg daily. Will arrange outpatient follow-up.
Original Note:
Today's Communication / Plan
-
Replete potassium and magnesium
Consider transition to oral Lasix 40 mg upon discharge
Will need outpatient BMP on 03/14/2024 prior to outpatient cardiology follow-up. Prescription for lab work placed on chart
Outpatient cardiology follow-up arranged for 03/15/2024
Impression / Plan
-
PCP: Dr. Abebe
Pulm and Oncology: Dr. Adonay Bartlett at [facility]
Cardiology: Dr. Jacobs, last seen 05/20/23
Impression:
Acute hypoxic respiratory insufficiency
HTN urgency
Acute HF unknown EF
Hypokalemia
Hypomagnesemia
Recent admission for PNA 03/04/24 until 03/07/24
Recent admission to [facility] for PNA, ETOH withdrawal with DTs 02/02/24 until 03/01/24
Recent admission to [facility] for influenza, SIADH, ETOH withdrawal and immunotherapy induced hepatitis 11/06/23 until 11/26/23
h/o metastatic melanoma with lung mets
left anterior chest wall and axilla resection at [facility] 03/2022
chemotherapy with Opdualag (nivolumab and relatlimab) 06/22/23, 07/20/23, 08/17/23 and 01/05/24
no new sites suspicious for metastatic disease in the chest, abdomen or pelvis by CT 11/12/23
Adrenal insufficiency
Hypothyroidism
COPD
Smoker
Denies ETOH use disorder, but 2 admissions for ETOH withdrawal with DTs in the last 4 months
Hypomagnesemia
Echo 03/09/24: EF 54%, severe MR with systolic flow reversal in pulmonary veins.
Plan:
-Presented 03/08/24 with acute heart failure. Diuresing with IV lasix 40mg daily w/ good response.
-Weight down at lest 6 lbs this admission and down 10 lbs since 03/04.
-Creat stable at 1.3 but bun creeping up 14->26
-Got extra dose of IV Lasix afternoon of 03/09/2024. Consider transitioning to oral Lasix 40 mg within next 24 hours. Patient was not on Lasix prior to admission
-Echo as noted above with low normal ejection fraction and severe MR. Results discussed with the patient. Can be reassessed with further workup as outpatient
-CHF education
-He has h/o SIADH. Na stable at 136. K down to 3.6 /w mag 1.4.
-Replete both K and mag.
-Obtain BMP, mag 03/14 as outpt prior to cardiology office visit on 717
-Volume overload might be related to the 6+ liters of IVFs he received during his 03/04/24 until 03/07/24 admission. However patient now negative/diuresed 6 L since 03/08/2024
-Continue Coreg 3.125mg BID. BP has improved and is a bit on the low side with diuresis.
-Consider Aldactone as outpatient if renal function and blood pressure allow.
-Patient also has a h/o chronic adrenal insufficiency and takes hydrocortisone 20 mg AM and 10 mg afternoon daily has been ordered. Patient was given stress dose steroids last admission when he had PNA.
-Patient has had 2 prolonged admissions for ETOH withdrawal including DTs in the past 4 months. He tells some people that he drinks once a month or less and tells other he drinks 2 hard alcohol drinks a day.
-Follow up arranged.
-stable from cardiology standpoint for discharge
HPI: Patient came to [facility] early this morning with RIVER and high blood pressure and is now admitted with acute HF so cardiology has been consulted. Patient is a poor historian and says he does not know the current status of his cancer diagnosis or
treatment and that he feels like a blank slate because he doesn't recall a lot of information. Extensive research in [facility] and [employer] to compile impression as noted above. Patient was diagnosed with metastatic melanoma in 2021 and had an extensive
left anterior chest wall into axilla resection in 03/2022 at [facility]. He later had metastatic disease found on surveillance CT and at some point was placed on immunotherapy with OPDUALAG. 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
Patient was referred to cardiology in 04/[address] scan suggested moderate coronary artery calcifications and patient was recommended to start atorvastatin and aspirin. He says he never started aspirin and that [facility] told him to stop atorvastatin
for unclear reasons. 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 He does follow with endocrinology at [facility] for adrenal insufficiency and is chronically on hydrocortisone. Most recently patient had
a 20 day admission for influenza and ETOH withdrawal at [facility]. He was able to be discharged to home and followed up with Oncology at [facility] afterwards and was able to resume OPDUALAG. Then he was admitted to [facility] again 02/02/24 until 03/01/24 with PNA and
ETOH withdrawal with DTs. He was only home for 3 days before he was admitted to with PNA. During that admission he was given antibiotics IV and a total of 6.3 L IVFs. Recorded bed scale weight was only up about 4 lbs at time of discharge. Patient
says that last night he had a RIVER and went to bed, but woke up hours later with a worse RIVER and when he checked his BP it was elevated so he came to [facility]. pro-BNP was 1290 on 03/04/24 admission, but now up to 8640. He was given Lasix 40 mg IV x1 at 0617
and another Lasix 40 mg IV at 1012 this AM and reports increased urine output.
Progress Note - [employer]ile [employer]ter
Subjective
Date of Service: March 10, 2024
Patient seen and examined. Patient resting comfortably in bed. Patient reports he is feeling much better. Eager to go home
Objective
Labs:
03/10/24 07:03
03/10/24 07:03
Labs
Hgb 11.2 g/dL (13.0-18.0) L 03/10/24 07:03
Hct 32.2 % (39.0-52.0) L 03/10/24 07:03
Plt Count 367 10^3/uL (130-400) 03/10/24 07:03
PT 13.0 Sec (11.4-14.6) 03/08/24 04:12
INR 1.00 03/08/24 04:12
APTT 33.9 Sec (23.4-35.0) 03/08/24 04:12
Sodium 136 mmol/L (135-145) 03/10/24 07:03
Potassium 3.6 mmol/L (3.5-5.1) 03/10/24 07:03
BUN 26 mg/dl (9-20) H 03/10/24 07:03
Creatinine 1.3 mg/dL (0.7-1.3) 03/10/24 07:03
Glucose 79 mg/dl (70-99) 03/10/24 07:03
Troponins
03/08/24 03/08/24
03:51 04:07
Troponin I 0.018 Cancelled
Vital Signs and I&O:
Vital Signs
Temp Pulse Resp BP Pulse Ox
97.4 F 91 18 102/66 98
03/10/24 07:47 03/10/24 08:54 03/10/24 08:39 03/10/24 08:54 03/10/24 08:39
Vital Signs
Temp Pulse Resp BP Pulse Ox
97.4 F 91 18 102/66 98
03/10/24 07:47 03/10/24 08:54 03/10/24 08:39 03/10/24 08:54 03/10/24 08:39
Intake & Output
03/08/24 03/09/24 03/10/24 03/11/24
06:59 06:59 06:59 06:59
Intake Total 480 / 480 1640 / 1640
Output Total 250 / 250 3100 / 3100 4775 / 4775
Balance -250 / -250 -2620 / -2620 -3135 / -3135
Physical Exam
Physical Exam
GEN: No distress, awake, Ox3
HEENT: supple, anicteric, mmm
LUNGS: CTA, no wheezes/rales
CV: Reg, S1/S2, 2/6 apical murmur
ABD: soft, BS+, NT/ND
EXT: No edema, clubbing or cyanosis
NEURO: Gross non-focal
SKIN: No rash, warm, dry, pain
--- NOTE | 2024-03-10 10:46 | W.PN.HOSP.TC ---
Addendum entered and electronically signed by Felicia Sanford MD 03/10/24 13:45:
total DC time 40 min
Original Note:
Today's Communication/Plan
-
DC today
Assessment / Plan
Assessment / Plan
HPI: 73 yo M [facility] Lung cancer follows at [facility], history of Alcohol use disorder, Adrenal insufficiency on hydrocortisone, Hypothyroidism on Synthroid, who was discharged the day prior for community-acquired pneumonia, and retuned
due to high BP, RIVER and b/l ankle edema apparently for 2 weeks.
Admit for acute CHF.
A/P:
# Acute diastolic heart failure
# HTN urgency, resolved
proBNP 8640, was 1290 on 03/04/24
Cont IV Lasix 40 daily with plan to change to PO Lasix upon discharge
Started Coreg 3.125 mg BID
echo: EF 54%. Normal diastolic function. Severe mitral regurgitation.
Card on board
# Hypokalemia
# Hypomagnesemia
replete lytes
# Acute hypoxic resp insufficiency, resolved
weaned 2L NC back to RA
# Recent CAP
Will DC on cefdinir/doxy for 2 more days
# COPD
cont Mucinex, Acapella
cont Spiriva
# HX Lung cancer follows at [facility]
Currently not on treatment as immunotherapy postponed due to myositis.
# Alcohol use disorder
stable
# Adrenal insufficiency
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
# Hypothyroidism
Synthroid
DVT Px: LMWH
Code: Full
DW Card
Anticipated Discharge: Today
Subjective/Interval History
-
Date of Service: March 10, 2024
Objective Data
-
Labs:
Laboratory Results
03/10/24
07:03
WBC 13.2 H
Hgb 11.2 L
Hct 32.2 L
Plt Count 367
Sodium 136
Potassium 3.6
Chloride 94 L
Carbon Dioxide 33 H
BUN 26 H
Creatinine 1.3
Glucose 79
Calcium 9.7
Vital Signs:
Vital Signs
Temp Pulse Resp BP Pulse Ox
36.3 C 91 18 102/66 98
03/10/24 07:47 03/10/24 08:54 03/10/24 08:39 03/10/24 08:54 03/10/24 08:39
I&O
03/09/24 03/10/24 03/11/24
06:59 06:59 06:59
Intake Total 480 / 480 1640 / 1640
Output Total 3100 / 3100 4775 / 4775
Balance -2620 / -2620 -3135 / -3135
Review of Systems
-
Respiratory: Denies Trouble Breathing
Physical Exam
-
General: Well Developed, Well Nourished, Comfortable and Conversant
HEENT: Normocephalic, Atraumatic, Nose Appears Normal and Ears Appear Normal; Negative Oxygen
Respiratory: Clear to Auscultation, Crackles (mild) and Non Labored Respirations; Negative Wheezes or Accessory Resp Muscle Use
Cardiac: Regular Rhythm and S1/S2
GI: Soft, Nontender, Nondistended and Normal Bowel Sounds
Musculoskeletal: Edema, Right Lower Extrem (improved) and Edema, Left Lower Extrem (improved)
Skin: Warm and Dry
Neuro: Awake, Alert, Oriented and AO x 3
Psych: Calm and Intact Judgement/Insight
Data Reviewed
-
CT Scan: Report Reviewed by me
Labs: Labs Reviewed by me
--- NOTE | 2024-03-10 10:56 | VNURNOTE ---
Received message from JUANJO Carreon asking if HF program provides scales for patients to use at home (if hardship of obtaining at home). Confirmed with [facility] HF coordinator, we can provide. Called [facility] and requested a scale to be delivered to pt's
room. They confirmed they can drop it off. Called patient's nurse Oliva and updated.
[2024-03-10 11:25] VITALS: BP 108/70
--- NOTE | 2024-03-10 11:40 | CM ---
Addendum entered by Zulma Alvares 03/10/24 11:56:
[facility] FAX: [phone]
Original Note:
Patient seen bedside, discussed plan for discharge today. Patient reports his friend will provide transportation home. Scale provided to patient by HF program. CM discussed tub chair not covered by insurance, can order on [employer]. [facility]
referral sent to [facility] [employer]. Patients reports he also qualifies for home care services through [employer] brokers. IMM reviewed, signed, placed in chart. CM will continue to follow for all discharge planning needs.
Plan; home with [facility]
[2024-03-10] MEDS: CORTEF 10 MG PO (13:21)
--- NOTE | 2024-03-10 13:36 | W.DCSUMMARY ---
Discharge Summary
Discharge Data
Date of Admission: 03/08/24
Date of Discharge: 03/10/24
-
Pending Results: No
Hospital Course
Principal Diagnosis:
Acute diastolic heart failure with hypertension urgency (resolved) on admission.
Resolved acute hypoxic respiratory insufficiency.
Hypokalemia and Hypomagnesemia
Chronic Diagnoses:�
Recent community-acquired pneumonia
Chronic obstructive pulmonary disease
History of Lung cancer follows at [facility]
Alcohol use disorder
Adrenal insufficiency on hydrocortisone
Hypothyroidism on Synthroid
Consultations:�
Cardiology
Procedures:�
None
Clinical course:�
This is a 73-year-old male, with past medical history as stated above, who returned to the hospital after discharge with persistent shortness of breath and noting ankle edema.
He was admitted for acute heart failure this time. Of note, he had just been discharged for pneumonia with oral antibiotics.
Problem 1:
Acute diastolic heart failure with HTN urgency (resolved) on admission.
This was treated with IV Lasix 40 daily while in the hospital, and he was discharged with oral Lasix at 40 mg daily.
His bilateral ankle edema significantly improved with Lasix.
His echo showed an EF of 54%. Normal diastolic function. Severe mitral regurgitation.
He was started with Coreg 3.125 mg BID which he can continue going forward.
Problem 2:
Resolved acute hypoxic respiratory insufficiency.
He was weaned off O2 support via nasal cannula back to room air.
Problem 3:
Hypokalemia and Hypomagnesemia.
His electrolytes were repleted during his hospital stay, he can check repeat BMP and magnesium level with his PCP outpatient.
As for the rest of his medical problems, they were stable during his hospital stay.
Discharge Plan
-
Patient Disposition: Home with Home Care
Discharge Diagnosis/Procedures: Acute diastolic heart failure; resolved hypertension urgency; Hypokalemia and Hypomagnesemia; resolved acute hypoxic respiratory insufficiency; Recent pneumonia
Condition: Fair
Diet: As tolerated
Driving Restrictions: As prior to admission
Blood Work: CBC with diff, BMP and Mag level in 1 week, result to PCP
BMP and magnesium prior to cardiology office visit 03/15
Others Tests: CXR in 4 weeks with your PCP
Specialty Instructions: Weigh Daily- Call MD for wt gain/loss 3 lbs overnight/5 lbs in 1 week
Activity Restrictions/Additional Instructions:
Consider heme eval if your outpatient WBC does not return to normal level (this can be arranged by your PCP)
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
Referrals:
Soren Jacobs MD [Active] - 03/15/24 2:00 pm (You have a follow up visit with Dr. Jacobs at the [place] office. Please call with questions. )
Savannah Love CRNP [Family Provider] - in less than 1 week
Additional Discharge Medication Instructions: Continue cefdinir/doxy for 3 more days
You were started with Lasix 40 mg daily (diuretic) and Coreg 3.125 mg twice daily for your heart failure
Prescriptions:
New
carvedilol 3.125 mg Tablet
3.125 mg PO BID Qty: 60 0RF
furosemide [Lasix] 40 mg tablet
40 mg PO DAILY Qty: 30 0RF
Continued
pantoprazole [Protonix] 40 mg Tablet,Delayed Release (Dr/Ec)
40 mg PO DAILY
hydrocortisone 10 mg Tablet
20 mg PO DAILY
hydrocortisone 10 mg Tablet
10 mg PO NOON
levothyroxine [Synthroid] 112 mcg Tablet
112 mcg PO DAILY
Anoro Ellipta 62.5-25 mcg/actuation Blister With Device
1 inh INHALATION R DAILY
albuterol sulfate 2.5 mg /3 mL (0.083 %) Solution For Nebulization
2.5 mg INHALATION R Q4HPRN PRN (Reason: SOB)
magnesium oxide 420 mg Tablet
420 mg PO DAILY
thiamine HCl (vitamin B1) 100 mg Tablet
100 mg PO DAILY
gabapentin 300 mg Capsule
300 mg PO BID
acetaminophen [Tylenol Extra Strength] 500 mg Tablet
1,000 mg PO Q6HPRN PRN (Reason: mild pain)
zinc sulfate 50 mg zinc (220 mg) Tablet
50 mg PO DAILY
potassium 75 mg Tablet
75 mg PO DAILY
cholecalciferol (vitamin D3) [Vitamin D3] 25 mcg (1,000 unit) Tablet
25 mcg PO DAILY
Arnuity Ellipta 100 mcg/actuation Blister With Device
1 inh INHALATION R DAILY
doxycycline hyclate 100 mg Capsule
100 mg PO Q12 3 Days Qty: 6 0RF
cefdinir 300 mg Capsule
300 mg PO Q12 3 Days Qty: 6 0RF
Discharge Orders:
Discharge Patient (As Directed); Ordered 03/10/24
Ordered By: Felicia Sanford
Discharge Date and Time
Print Language: NIGERIEN
[2024-03-10 14:33] VITALS: BP 120/69
== END 2024-03-10 16:55 | disposition home health service (06) | DRG 291 ==
LOC: 4 EAST ACU 06:33
PROVIDERS: ADMITTING PHYSICIAN Internal Medicine; ATTENDING PHYSICIAN Internal Medicine; EMERGENCY PHYSICIAN Student in an Organized Health Care Education/Training Program; FAMILY PHYSICIAN Nurse Practitioner; OTHER PHYSICIAN Internal Medicine Cardiovascular Disease
DX: I50.31 Acute diastolic (congestive) heart failure (principal); J18.9 Pneumonia, unspecified organism; E27.40 Unspecified adrenocortical insufficiency; I16.0 Hypertensive urgency; E87.6 Hypokalemia; R09.02 Hypoxemia; R06.89 Other abnormalities of breathing; E83.42 Hypomagnesemia; J44.9 Chronic obstructive pulmonary disease, unspecified; E03.9 Hypothyroidism, unspecified; Z85.118 Personal history of other malignant neoplasm of bronchus and lung
CPT/HCPCS: 71046; 80048; 80053; 83735; 83880; 84484; 85025; 85027; 85610; 85730; 93005; 93306; 94640; 97162; 99285

== ENCOUNTER → 2024-04-05 09:37 | Outpatient (REF) | payer OTHER, SELFPAY | LOC: PAVMRI 09:37 | PROVIDERS: ATTENDING PHYSICIAN Physician Assistant | DX: R51.9 Headache, unspecified (principal) | CPT/HCPCS: 70551 ==

== ENCOUNTER → 2024-04-07 10:17 | Outpatient (REF) | payer OTHER, SELFPAY | LOC: RCS 10:17 | PROVIDERS: ATTENDING PHYSICIAN Internal Medicine Cardiovascular Disease; FAMILY PHYSICIAN Physician Assistant | DX: I50.30 Unspecified diastolic (congestive) heart failure (principal); J18.9 Pneumonia, unspecified organism | CPT/HCPCS: 71046; 93306 ==

== ENCOUNTER 2024-04-28 21:44 | Inpatient (IN) | payer OTHER, SELFPAY ==
[2024-04-28 17:04] VITALS: BP 106/80
[2024-04-28 17:18] LABS: % Basophils 0.8 % (0-2); % Eosinophils 4.3 % (0-6); % Immature Granulocytes 0.5 % (0-0.5); % Lymphocytes 26.6 % (20.5-51.1); % Monocytes 9.9 % (1.7-9.3); % Neutrophils 57.9 % (42.2-75.2); Absolute Basophils 0.1 10^3/uL (0-0.2); Absolute Eosinophils 0.3 10^3/uL (0-0.7); Absolute Monocytes 0.8 10^3/uL (0.1-0.6); Absolute Neutrophils 4.4 10^3/uL (1.4-6.5); Hematocrit 32.8 % (39.0-52.0); Hemoglobin 11.2 g/dL (13.0-18.0); Mean Corp Hgb Conc. 34.1 g/dL (33.0-37.0); Mean Corpuscular Hgb 30.4 pg (27.0-31.0); Mean Corpuscular Volume 89.1 fL (80.0-94.0); Mean Platelet Volume 9.1 fL (7.4-10.4); Nucleated Red Blood Cells % 0 % (-); Platelet Count 342 10^3/uL (130-400); Red Blood Cell Count 3.68 10^6/uL (4.70-6.10); Red Cell Dist. Width 13.6 % (11.5-14.5); White Blood Cell Count 7.6 10^3/uL (4.8-10.8)
[2024-04-28 17:34] LABS: ALT (SGPT) 11 U/L (0-50); AST (SGOT) 26 U/L (17-59); Albumin 3.8 g/dl (3.5-5.0); Alkaline Phosphatase 50 U/L (38-126); Blood Urea Nitrogen 33 mg/dl (9-20); Calcium 9.5 mg/dl (8.4-10.2); Carbon Dioxide 25 mmol/L (22-30); Chloride 99 mmol/L (98-107); Glucose 77 mg/dl (70-99); Sodium 137 mmol/L (135-145); Total Bilirubin 1.3 mg/dl (0.2-1.3); Total Protein 6.2 g/dl (6.3-8.2); eGFR 31.05
[2024-04-28 19:11] VITALS: BMI 22.6
[2024-04-28 19:14] VITALS: BP 94/58
[2024-04-28] MEDS: NSS 1000 IV ×2 (19:54→23:09)
[2024-04-28 20:00] VITALS: BP 112/57
--- NOTE | 2024-04-28 20:00 | ED.GENMED ---
History of Present Illness
General
Chief Complaint: Fatigue
Time Seen by Provider: 04/28/24 18:29
History of Present Illness
History of Present Illness:
74-year-old male with history of lung cancer most recently undergoing immunotherapy at [facility] presents the emergency department for evaluation of fatigue and generalized body pain. His initial round of immunotherapy earlier this summer was
complicated by myositis, he states the diffuse pain he is experiencing is comparable to this. He also reports vomiting earlier in the week and chronic diarrhea since starting the immunotherapy. Feels profoundly fatigued and is having difficulty
walking. Reports abstinence from alcohol
Past History
Past History
ED Past Medical History: Cancer (Lung cancer), COPD, GERD and Other (Alcohol abuse/tobacco abuse)
ED Past Surgical History: Other (hernia)
Social History
Tobacco: Smoker
Alcohol: Chronic alcoholic
Drug: None
Personal:
Living: with family
Employment: Retired
Family History
Family History: Other (Noncontributory)
Review of Systems
Review of Systems
Allergies reviewed?: Yes
All Other Systems: ROS reviewed and negative except as documented in HPI and ROS
Phy Exam
Physical Exam
Physical Exam:
GEN: Well appearing, NAD, WDWN
HEENT: Oral mucosa moist, no scleral icterus
Cardiac: Regular rate, and rhythm, no murmurs
Lung: No respiratory distress, no tachypnea lungs clear to auscultation bilaterally
MSK: No gross deformity or injuries, no lower extremity edema
Skin: Good color, no pallor or jaundice, no rashes
Neuro: AO x3, moves all extremities freely
Psych: Calm, cooperative
Course
Orders/Labs/Results
Orders:
Orders
04/28/24 17:10
Alcohol Urgent
Complete Blood Count/With Diff Urgent
Comprehensive Metabolic Panel Urgent
04/28/24 18:44
Bladder Scan- Treatment ONCE
0.9% Sodium Chloride 1000 ml [Nss] 1,000 ml IV BOLUS
04/28/24 18:45
Urinalysis Reflex To Culture Urgent
CR Chest - 2 Views Urgent
Comment:
Reason For Exam: weakness
04/28/24 19:38
Add On- LAB Urgent
Tests Added?: ETOH
04/28/24 20:34
Add On- LAB Urgent
Tests Added?: CPK
Abnormal Lab Results
04/28/24
17:10
RBC 3.68 L 10^6/uL
(4.70-6.10)
Hgb 11.2 L g/dL
(13.0-18.0)
Hct 32.8 L %
(39.0-52.0)
Absolute Monos (auto) 0.8 H 10^3/uL
(0.1-0.6)
Monocytes % 9.9 H %
(1.7-9.3)
BUN 33 H mg/dl
(9-20)
Creatinine 2.2 H mg/dL
(0.7-1.3)
Total Protein 6.2 L g/dl
(6.3-8.2)
04/28/24 17:10
04/28/24 17:10
Vital Signs
Initial and Last Documented VS:
Initial Vital Signs
Temp Pulse Resp BP Pulse Ox
98.4 F 95 16 106/80 96
04/28/24 17:04 04/28/24 17:04 04/28/24 17:04 04/28/24 17:04 04/28/24 17:04
Last Documented Vital Signs
Temp Pulse Resp BP Pulse Ox
98.4 F 91 14 112/57 93
04/28/24 17:04 04/28/24 20:15 04/28/24 20:15 04/28/24 20:00 04/28/24 19:45
MDM/Problems Addressed
MDM/Problems Addressed:
Patient's ADALI is likely related to his current diuresis coupled with poor p.o. intake due to vomiting and diarrhea in the setting of his immunotherapy. Given severity of ADALI and significant functional debility will admit for IV fluids and further
management. CPK added on for possible myositis in the setting of immunotherapy.
*Critical Care Note
Total Time (30-74mins, 75-104mins- exclusive of procedures): Not Applicable
ED Attending Note
-
Portions of this chart may have been created with voice recognition software.� Occasional wrong word or��sound alike� substitutions may have occurred due to the inherent limitations of voice recognition software.
Discharge Plan
Departure
Patient Disposition: Admit
Date of Disposition: 04/28/24
Time of Disposition: 20:40
Presentation/result/management discussed w/ accepting MD/DO: Hospitalist
Discharge Problem:
Acute kidney injury
Prescriptions:
No Action
pantoprazole [Protonix] 40 mg Tablet,Delayed Release (Dr/Ec)
40 mg PO DAILY
hydrocortisone 10 mg Tablet
20 mg PO DAILY
hydrocortisone 10 mg Tablet
10 mg PO NOON
levothyroxine [Synthroid] 112 mcg Tablet
112 mcg PO DAILY
Anoro Ellipta 62.5-25 mcg/actuation Blister With Device
1 inh INHALATION R DAILY
albuterol sulfate 2.5 mg /3 mL (0.083 %) Solution For Nebulization
2.5 mg INHALATION R Q4HPRN PRN (Reason: SOB)
magnesium oxide 420 mg Tablet
420 mg PO DAILY
thiamine HCl (vitamin B1) 100 mg Tablet
100 mg PO DAILY
gabapentin 300 mg Capsule
300 mg PO BID
acetaminophen [Tylenol Extra Strength] 500 mg Tablet
1,000 mg PO Q6HPRN PRN (Reason: mild pain)
zinc sulfate 50 mg zinc (220 mg) Tablet
50 mg PO DAILY
potassium 75 mg Tablet
75 mg PO DAILY
cholecalciferol (vitamin D3) [Vitamin D3] 25 mcg (1,000 unit) Tablet
25 mcg PO DAILY
Arnuity Ellipta 100 mcg/actuation Blister With Device
1 inh INHALATION R DAILY
carvedilol 3.125 mg Tablet
3.125 mg PO BID Qty: 60 0RF
furosemide [Lasix] 40 mg tablet
40 mg PO DAILY Qty: 30 0RF
doxycycline hyclate 100 mg Capsule
100 mg PO Q12 3 Days Qty: 6 0RF
cefdinir 300 mg Capsule
300 mg PO Q12 3 Days Qty: 6 0RF
Interventions
Interventions:
*Risk Screen - Suicide Last Done: 04/28/24 17:04
*General Assessment Last Done: 04/28/24 17:04
*Neglect/Abuse Screening Last Done: 04/28/24 17:04
ED- Fall Risk Assessment Last Done: 04/28/24 19:11
*ED COVID-19 Vaccine History Last Done: 04/28/24 17:04
Discharge Date and Time
Print Language: GREEK
[2024-04-28 20:14] LABS: Alcohol None Detected
[2024-04-28 21:00] VITALS: BP 117/64
[2024-04-28 21:17] LABS: Creatine Phosphokinase 203 U/L (55-170)
--- NOTE | 2024-04-28 21:24 | HPS.HSE ---
Family Physician
-
Family Physician: MAY Ortiz
Chief Complaint
-
body pains
History of Present Illness
74-year-old male past medical history of lung cancer on immunotherapy, COPD, HFpEF, alcohol use disorder, adrenal insufficiency, hypothyroidism, presenting with fatigue and generalized body pain which started acutely today. He had immunotherapy
earlier this summer approximately 3 weeks ago. He previously had immunotherapy in August complicated by myositis for which she was hospitalized at [facility] and treated with IV fluids and steroids and the diffuse pain he is having currently
similar to then. He also had vomiting earlier this week chronic watery diarrhea ongoing for months. He is having profound fatigue and difficulty walking. He denies any recent alcohol use. He has not drunk alcohol in a few months. He denies
smoking or marijuana or drugs.
He denies any urinary symptoms such as burning or frequency and urinating normal volume.
Medical History
Past Medical History
Past Medical History: Reports Other (lung cancer on immunotherapy, COPD, HFpEF, alcohol use disorder, adrenal insufficiency, hypothyroidism)
Past Surgical History: Reports None
Social History
Tobacco: Non-smoker
Alcohol: Former
Drug: None
Family History
Family History: Not pertinent
Allergies / Home Medications
Allergies reflects when Allergies were last updated in [facility].
Home Medications with original date entered in [facility]
Allergy/Medication List:
Allergies
Allergy/AdvReac Type Severity Reaction Status Date / Time
No Known Allergies Allergy Verified 03/08/24 02:26
Home Medications
albuterol sulfate 2.5 mg/3 mL (0.083 %) solution for nebulization 2.5 mg inhalation R Q4HPRN PRN SOB 11/20/23
hydrocortisone 10 mg tablet 10 mg PO NOON Anti-Inflammatory 11/20/23
hydrocortisone 10 mg tablet 20 mg PO DAILY Anti-Inflammatory 11/20/23
levothyroxine 112 mcg tablet (Synthroid) 112 mcg PO DAILY Thyroid 11/20/23
pantoprazole 40 mg tablet,delayed release (Protonix) 40 mg PO DAILY Gastrointestinal Issue 11/20/23
umeclidinium 62.5 mcg-vilanterol 25 mcg/actuation powdr for inhalation (Anoro Ellipta) 1 inh inhalation R DAILY Lung/Breathing Issues 11/20/23
gabapentin 300 mg capsule 300 mg PO BID Neurological Condition 03/04/24
magnesium oxide 420 mg tablet 420 mg PO DAILY Electrolyte Repletion 03/04/24
thiamine HCl (vitamin B1) 100 mg tablet 100 mg PO DAILY Supplement 03/04/24
acetaminophen 500 mg tablet (Tylenol Extra Strength) 1,000 mg PO Q6HPRN PRN mild pain 03/08/24
cholecalciferol (vitamin D3) 25 mcg (1,000 unit) tablet (Vitamin D3) 25 mcg PO DAILY Supplement 03/08/24
fluticasone furoate 100 mcg/actuation blister powder for inhalation (Arnuity Ellipta) 1 inh inhalation R DAILY Lung/Breathing Issues 03/08/24
zinc sulfate 50 mg zinc (220 mg) tablet 50 mg PO DAILY Supplement 03/08/24
furosemide 40 mg tablet (Lasix) 40 mg PO DAILY #30 tabs 03/10/24
Ip 60 2 tab PO BID 04/28/24
Review of Systems
-
History Source: Patient
A 12 point ROS was completed and negative except as noted: Yes
Constitutional: Reports No Symptoms
EENT: Reports No Symptoms
Respiratory: Reports No Symptoms
Cardiac: Reports No Symptoms
Abdomen/GI: Reports No Symptoms
: Reports No Symptoms
Musculoskeletal: Reports No Symptoms
Skin: Reports No Symptoms
Neurological: Reports No Symptoms
Endocrine: Reports No Symptoms
Hematologic/Lymphatic: Reports No Symptoms
Psych: Reports No Symptoms
Physical Exam
Vital Signs
Vital Signs
Temp Pulse Resp BP Pulse Ox
98.4 F 91 14 112/57 93
04/28/24 17:04 04/28/24 20:15 04/28/24 20:15 04/28/24 20:00 04/28/24 19:45
Physical Exam
General: Well Developed, Well Nourished and No Apparent Distress
HEENT: NormoCephalic, Moist mucous membranes and Atraumatic
Respiratory: Clear
Cardiac: S1/S2 and Regular Rhythm; No Murmur or Rub
GI: Soft, Non Tender, Non Distended and Normal Bowel Sounds; No Organomegaly
Rectal: Deferred by Provider
Musculoskeletal: No Clubbing, No Cyanosis and No Edema
Skin: No Rash
Neuro: Nonfocal/grossly intact
Laboratory Results
-
04/28/24 17:10
04/28/24 17:10
Laboratory Results
Total Bilirubin 1.3 mg/dl (0.2-1.3) 04/28/24 17:10
AST 26 U/L (17-59) 04/28/24 17:10
ALT 11 U/L (0-50) 04/28/24 17:10
Alkaline Phosphatase 50 U/L (38-126) 04/28/24 17:10
Data Reviewed
-
Lab Data: Labs Reviewed by me
Old Records: Reviewed
Impression/Plan
-
IMPRESSION:
PLAN:
# ADALI secondary to prerenal from chronic diarrhea versus ATN
-CK minimally elevated at 200
-Creatinine of 2.2
-Check urinalysis
-Bladder scan protocol
-Hold Lasix
-IV fluids
# Diffuse body pain possibly secondary to myositis possibly from immunotherapy
-CK minimally elevated 200
-Continue gabapentin
-Continue Tylenol
# Chronic diarrhea unclear etiology, possibly related to immunotherapy
-Continue loperamide
-Outpatient GI follow-up
Lung cancer on immunotherapy
COPD
-Continue inhalers
Chronic HFpEF
-Hold Lasix
Alcohol use disorder
-Continue thiamine
Adrenal insufficiency
-Continue hydrocortisone
Hypothyroidism
-Continue levothyroxine
Full code
DVT prophylaxis-heparin
Regular diet
[2024-04-28 22:00] VITALS: BP 122/66; BMI 23.3
[2024-04-28 22:31] VITALS: BMI 22.6
[2024-04-28 23:10] VITALS: BP 118/62
[2024-04-28] MEDS: ROXICODONE 2.5 MG PO (23:19)
[2024-04-28] MEDS: TYLENOL 1000 MG PO (23:19)
[2024-04-28 23:23] LABS: Urine Albumin Negative (Neg - Trace); Urine Bilirubin Negative (Negative); Urine Character Clear (Clear); Urine Color Yellow; Urine Glucose Negative (Negative); Urine Ketone 1+ (Negative); Urine Leukocyte Negative (Negative); Urine Nitrite Negative (Negative); Urine Occult Blood Negative (Negative); Urine Urobilinogen Negative (Neg - 1+)
[2024-04-29] VITALS (7 sets, daily range): BP systolic 101–126; BP diastolic 50–68; BMI 23.0
[2024-04-29] MEDS: SYNTHROID 112 MCG PO (05:24)
[2024-04-29] MEDS: FLOVENT 44 MCG INHALER 2 PUFF INH ×2 (07:53→20:09)
[2024-04-29] MEDS: STRIVERDI RESPIMAT 2 PUFF INH (07:54)
[2024-04-29] MEDS: SPIRIVA RESPIMAT 2.5 MCG 2 PUFF INH (07:54)
[2024-04-29 08:29] LABS: % Basophils 0.8 % (0-2); % Eosinophils 5.4 % (0-6); % Immature Granulocytes 0.8 % (0-0.5); % Lymphocytes 27.1 % (20.5-51.1); % Monocytes 11.7 % (1.7-9.3); % Neutrophils 54.2 % (42.2-75.2); Absolute Eosinophils 0.3 10^3/uL (0-0.7); Absolute Lymphocytes 1.3 10^3/uL (1.2-3.4); Absolute Monocytes 0.6 10^3/uL (0.1-0.6); Absolute Neutrophils 2.6 10^3/uL (1.4-6.5); Hematocrit 30.8 % (39.0-52.0); Hemoglobin 10.8 g/dL (13.0-18.0); Mean Corp Hgb Conc. 35.1 g/dL (33.0-37.0); Mean Corpuscular Hgb 31.3 pg (27.0-31.0); Mean Corpuscular Volume 89.3 fL (80.0-94.0); Mean Platelet Volume 9.8 fL (7.4-10.4); Nucleated Red Blood Cells % 0 % (-); Platelet Count 302 10^3/uL (130-400); Red Blood Cell Count 3.45 10^6/uL (4.70-6.10); Red Cell Dist. Width 13.6 % (11.5-14.5); White Blood Cell Count 4.8 10^3/uL (4.8-10.8)
[2024-04-29 08:45] LABS: ALT (SGPT) < 10 U/L (0-50); AST (SGOT) 24 U/L (17-59); Albumin 3.4 g/dl (3.5-5.0); Alkaline Phosphatase 46 U/L (38-126); Blood Urea Nitrogen 32 mg/dl (9-20); Calcium 8.8 mg/dl (8.4-10.2); Carbon Dioxide 19 mmol/L (22-30); Chloride 100 mmol/L (98-107); Estimated Creatinine Clearance 32 ml/min; Glucose 41 mg/dl (70-99); Potassium 3.9 mmol/L (3.5-5.1); Sodium 136 mmol/L (135-145); Total Protein 5.6 g/dl (6.3-8.2); eGFR 34.81
[2024-04-29 09:13] LABS: Glucose - Point of Care 63 mg/dl (70-99)
[2024-04-29 09:56] LABS: Glucose - Point of Care 89 mg/dl (70-99)
--- NOTE | 2024-04-29 09:58 | W.PN.HOSP.TC ---
Addendum entered and electronically signed by Bryce Clifton MD 04/29/24 22:57:
Attending Addendum-
I saw and evaluated the patient. I reviewed the resident�s note and agree with findings and plan as documented in the resident�s note. Sub: complains of non bloody diarrhea and recurrent 'body aches' Full 12 point ROS reviewed and negative except as
documented Exam: Vitals reviewed in chart GEN-nad chronically ill apearing heart RRR lungs clear abd soft LE no edema
PLAN:
# ADALI secondary to prerenal from chronic diarrhea and dehydration
-CK minimally elevated at 200 not rhabdo
-Creatinine of 2.2->2.0
-Check urinalysis
-Bladder scan protocol
-Hold Lasix
-IV fluids
# Hypoglycemia
- start D5W NS
- likely from nutritional deficiencies and poor appetite
# Diffuse body pain possibly secondary to myositis possibly from immunotherapy
-CK minimally elevated 200
-Continue gabapentin
-Continue Tylenol
# Acute on Chronic diarrhea
- possible IP vs meds (magnesium) vs W/D vs nutritional deficiencies
- hold loperamide
- check c diff (recent h/o per patient) and stool studies
- check OP records
- Outpatient GI follow-up
# Lung cancer on immunotherapy
- cont care as OP
#COPD
-Continue inhalers
#Chronic HFpEF
-Hold Lasix
#Alcohol use disorder
- start high dose IV thiamine
- cont MVI folate
- last drink 7 months ago per patient
- etoh neg on 04/28 and 03/04
- start MSAS prophylactically
# Adrenal insufficiency
-increase chronic hydrocortisone BID to stress dose
- monitor CBC and BMP closely
# Hypothyroidism
-Continue levothyroxine
Full code
DVT prophylaxis-heparin
Regular diet
Time spent coordinating care, review of plan of care with resident, personally reviewed records in EMR, med rec, consults, notes, labs, radiology, d/w nursing � 58 mins
Original Note:
Today's Communication/Plan
-
MSAS protocol, D5NS and IV thiamine, check cdiff
Assessment / Plan
Assessment / Plan
74yo M with PMH of lung cancer currently t/w immunotherapy, history of alcohol use disorder, adrenal insufficiency, hypothyroidism, who presented to ED for diffuse body pain and fatigue.
Diffuse body pain, weakness
- Differential diagnosis includes myositis secondary to immunotherapy, hypothyroidism
- CK minimally elevated 200
- Will check TSH
- Continue tylenol, gabapentin. Will start tramadol prn for pain
- PT/OT
ADALI secondary to prerenal from chronic diarrhea
- Creatinine of 2.2 on admission --> 2.0 today
- UA unremarkable
- Bladder scan protocol, I&Os
- Hold home Lasix
- IV fluids and encourage PO hydration
- Follow CMP
Chronic diarrhea unclear etiology
- Recent history of cdiff- tested positive 03/30, unknown if treatment was completed
- Check cdiff, stool culture, TSH, celiac panel
- Discontinue loperamide pending stool studies
- Continue IV fluids and encourage PO hydration
- Low lactose diet while inpatient
- Follow CMP
- Will need outpatient GI follow up
Adrenal insufficiency
- Continue stress dose steroids: double home dose
- Will need to be discharged on taper back to his usual home dose from prior to this admission
Chronic HFpEF
- Echo 04/07/24: LV EF 60%, severe eccentric mitral regurgitation
- 2g sodium diet while inpatient
- Hold lasix in setting of ADALI
History of alcohol use disorder
- Reports abstinence for several months, negative alc quant on admission
- Documentation from previous admission mention recent history of alcohol withdrawal and DT during hospitalizations at outside facilities ()
- Will request records from [facility]
- MSAS protocol
- IV thiamine
Hypothyroidism
- Continue home synthroid 112 mcg
- Check TSH
Hypoglycemia
- BG 41 on AM CMP --> poc 63 after providing juice
- IVF changed from NS to D5NS
- Continue POC BG
Lung cancer on immunotherapy- follows [facility]
COPD- Continue home inhalers
Full code
DVT prophylaxis-heparin
Diet: 2g Na, low lactose
Anticipated Discharge: 24 - 48 hours
Subjective/Interval History
-
Date of Service: April 29, 2024
No acute events overnight. Complains of diffuse musculoskeletal pain throughout body, fatigue, weakness, which he reports feels similar to episode of myositis in past. He is a poor historian. He reports 2 episodes of diarrhea overnight. Denies
fevers, chills, headache, chest pain, shortness of breath, nausea, abdominal pain, black/bloody stools. He reports nausea and nonbloody vomiting on 04/24, which was associated with profound fatigue causing him to 'lose a whole day' by sleeping for
'nearly 24 hours.' He has had no vomiting since then. Tolerates PO diet with no dysphagia, odynophagia, coughing/choking while swallowing. Reports more difficulty with ambulation than at baseline. He reports his last alcohol use was a few months
ago.
Objective Data
-
Labs:
Laboratory Results
04/29/24
05:21
WBC 4.8
Hgb 10.8 L
Hct 30.8 L
Plt Count 302
Sodium 136
Potassium 3.9
Chloride 100
Carbon Dioxide 19 L
BUN 32 H
Creatinine 2.0 H
Glucose 41 L*
Calcium 8.8
Total Bilirubin 1.0
AST 24
ALT < 10
Alkaline Phosphatase 46
Vital Signs:
Vital Signs
Temp Pulse Resp BP Pulse Ox
97.8 F 84 14 126/64 95
04/29/24 07:50 04/29/24 08:03 04/29/24 08:03 04/29/24 07:50 04/29/24 08:03
I&O
04/28/24 04/29/24 04/30/24
06:59 06:59 06:59
Intake Total 980 / 980
Balance 980 / 980
Review of Systems
-
History Source: Patient
All other systems: Reviewed and negative
Physical Exam
-
General: No Apparent Distress, Conversant, Appears Chronically Ill and Other
HEENT: Normocephalic, Atraumatic and Other (poor dentition)
Respiratory: Clear to Auscultation and Non Labored Respirations
Cardiac: Regular Rhythm and S1/S2
GI: Soft, Nontender, Nondistended and Normal Bowel Sounds
Genito-urinary: No Costovertebral Tender
Musculoskeletal: No Cyanosis, No Edema and Other (bilateral UE, LE muscles diffusely nontender to palpation)
Skin: Warm and Dry
Neuro: Awake, Alert and Other (slowed cognition); Negative Tremors (no flapping asterixis) or Facial Droop
Psych: Calm and Other (slow mentation, somewhat tangential responses to questions)
Data Reviewed
-
Diagnostic Radiology: Image personally visualized and interpreted, Report Reviewed by me and Discussed with Physician
Labs: Labs Reviewed by me, Discussed with Physician and Discussed with Nurse
[2024-04-29] MEDS: HEPARIN 5000 UNITS SC ×2 (10:47→20:55)
[2024-04-29] MEDS: VITAMIN B1 100 MG PO (10:49)
[2024-04-29] MEDS: ZINC SULFATE 220 MG PO (10:49)
[2024-04-29] MEDS: NEURONTIN 300 MG PO ×2 (10:49→20:55)
[2024-04-29] MEDS: VITAMIN D3 (cholecalciferol) 25 MCG PO (10:49)
[2024-04-29] MEDS: HYDROCORTONE/CORTEF 20 MG PO (10:49)
[2024-04-29] MEDS: MAG-TAB SR 84 MG PO (10:49)
[2024-04-29] MEDS: PROTONIX 40 MG PO (10:49)
[2024-04-29] MEDS: ROXICODONE 2.5 MG PO (11:05)
--- NOTE | 2024-04-29 12:29 | PTCARENOTE ---
Patient reports +C.diff 'about a month ago,' poor historian, forgetful to detail. Resident Dr. Grace aware, reports outpatient records show +C.diff on 03/30/24. Orders for stool studies noted, will obtain as able. Per protocol patient to be
enhanced precautions.
[2024-04-29] MEDS: CORTEF 10 MG PO (13:27)
[2024-04-29] MEDS: NSS IV ×2 (13:27→18:14)
[2024-04-29] MEDS: TYLENOL 650 MG PO ×3 (13:27→23:13)
--- NOTE | 2024-04-29 17:17 | CM ---
Addendum entered by Raina Miguel RN 05/02/24 08:23:
05/02/24 Addendum MD valdez after CM left. DC order placed 04/30/24 at 17:24 .
Plan Home with [facility] . As per [facility] accepted him resumption .
Original Note:
Alert awake oriented patient who lives alone on second floor converted barn with 17 stesp to enter . He is independent in all activities of daily living.He does not drive . Requesteed [facility] at dc.
[facility] hx /[facility] hx
Pharmacy [facility] [address]
PCP DR Ma
PLAN Home with [facility]
--- NOTE | 2024-04-29 17:47 | PTCARENOTE ---
hypoglycemic per AM labs, sugar=41mg/dl. gave juice, rechecked, 63mg/dl. Given additional juice, repeat sugar=89mg/dl. Dr. Grace aware. Order noted for d5/NSS IV fluids, see MAR.
[2024-04-29] MEDS: THIAMINE INJECTION 255 MG IV (18:13)
[2024-04-29] MEDS: ULTRAM 50 MG PO (18:19)
[2024-04-29] MEDS: D5/0.9% SODIUM CHLORIDE 1000 IV (18:25)
[2024-04-29 21:15] LABS: COVID-19 Antigen Negative (Negative)
[2024-04-29] MEDS: MELATONIN 5 MG PO (23:13)
[2024-04-30] MEDS: THIAMINE INJECTION 255 MG IV ×3 (00:16→16:06)
[2024-04-30 03:56] VITALS: BP 108/68
[2024-04-30] MEDS: ULTRAM 50 MG PO (03:58)
[2024-04-30] MEDS: SYNTHROID 112 MCG PO (05:44)
[2024-04-30] MEDS: TYLENOL 650 MG PO ×3 (05:44→16:05)
[2024-04-30 05:58] VITALS: BMI 23.5
[2024-04-30] MEDS: SPIRIVA RESPIMAT 2.5 MCG 2 PUFF INH (07:37)
[2024-04-30] MEDS: FLOVENT 44 MCG INHALER 2 PUFF INH (07:38)
[2024-04-30] MEDS: STRIVERDI RESPIMAT 2 PUFF INH (07:38)
[2024-04-30] MEDS: NEURONTIN 300 MG PO (07:42)
[2024-04-30] MEDS: D5/0.9% SODIUM CHLORIDE IV ×2 (07:42→17:31)
[2024-04-30] MEDS: PROTONIX 40 MG PO (07:42)
[2024-04-30] MEDS: VITAMIN D3 (cholecalciferol) 25 MCG PO (07:42)
[2024-04-30] MEDS: ZINC SULFATE 220 MG PO (07:42)
[2024-04-30] MEDS: MAG-TAB SR 84 MG PO (07:43)
[2024-04-30] MEDS: HEPARIN 5000 UNITS SC (07:44)
[2024-04-30] MEDS: HYDROCORTONE/CORTEF 40 MG PO (07:52)
[2024-04-30] MEDS: D5/0.9% SODIUM CHLORIDE 1000 IV (07:53)
[2024-04-30 07:59] LABS: ALT (SGPT) 10 U/L (0-50); AST (SGOT) 23 U/L (17-59); Albumin 3.3 g/dl (3.5-5.0); Alkaline Phosphatase 48 U/L (38-126); Blood Urea Nitrogen 22 mg/dl (9-20); Calcium 8.9 mg/dl (8.4-10.2); Carbon Dioxide 19 mmol/L (22-30); Chloride 104 mmol/L (98-107); Estimated Creatinine Clearance 43 ml/min; Glucose 116 mg/dl (70-99); Potassium 4.2 mmol/L (3.5-5.1); Sodium 135 mmol/L (135-145); Total Bilirubin 0.6 mg/dl (0.2-1.3); Total Protein 5.6 g/dl (6.3-8.2); eGFR 49.16
[2024-04-30 08:00] VITALS: BP 117/65
[2024-04-30 08:20] LABS: Glucose - Point of Care 167 mg/dl (70-99)
[2024-04-30 08:24] LABS: Hematocrit 24.8 % (39.0-52.0); Hemoglobin 8.3 g/dL (13.0-18.0); Mean Corp Hgb Conc. 33.5 g/dL (33.0-37.0); Mean Corpuscular Volume 89.5 fL (80.0-94.0); Mean Platelet Volume 9.7 fL (7.4-10.4); Platelet Count 275 10^3/uL (130-400); Red Blood Cell Count 2.77 10^6/uL (4.70-6.10); Red Cell Dist. Width 13.4 % (11.5-14.5); White Blood Cell Count 3.4 10^3/uL (4.8-10.8)
[2024-04-30 08:56] LABS: Free T4 0.96 ng/dl (0.78-2.19)
--- NOTE | 2024-04-30 11:19 | W.PN.HOSP.TC ---
Addendum entered and electronically signed by Bryce Clifton MD 04/30/24 23:03:
Attending Addendum-
I saw and evaluated the patient. I reviewed the resident�s note and agree with findings and plan as documented in the resident�s note. Sub: diarrhea resolved feels much improved, would like to go home. Full 12 point ROS reviewed and negative
except as documented Exam: Vitals reviewed in chart GEN-nad heart RRR lungs clear abd soft LE no edema
PLAN:
# ADALI secondary to prerenal from chronic diarrhea and dehydration
- resolving
- Creatinine of 2.0->1.5
- Hold Lasix on DC make PRN
# Hypoglycemia
- resolved
- likely from nutritional deficiencies and poor appetite
# Diffuse body pain possibly secondary to myositis possibly from immunotherapy
-CK minimally elevated 200
-increase gabapentin on DC
-Continue Tylenol
# Acute on Chronic diarrhea
- possible IP vs meds (magnesium) vs W/D vs nutritional deficiencies
- restart loperamide
- check c diff and stool studies neg c diff stool studies NGTD still some pend
- check OP records
- Outpatient GI follow-up
# Lung cancer on immunotherapy
- cont care as OP
#COPD
-Continue inhalers
#Chronic HFpEF
-Hold Lasix
#Alcohol use disorder
- no signs of WD/MSAS
- started on high dose IV thiamine
- cont MVI folate thiamine as OP
- last drink 7 months ago per patient
- etoh neg on 04/28 and 03/04
- encourage abstinence
# Adrenal insufficiency
- decrease back to chronic hydrocortisone BID dose from stress dose
- monitor CBC and BMP closely
# Hypothyroidism
- increase levothyroxine on DC
- TSH 27!
Full code
DVT prophylaxis-heparin
Regular diet
Dispo DC home
Time spent coordinating care, DC planning, review of DC plan of care with resident, transition of care, review of records, med rec/scripts sent electronically, consults, notes, d/w consultants, nursing, family, and CM� 37 mins
Original Note:
Today's Communication/Plan
-
Anticipate discharge today
Assessment / Plan
Assessment / Plan
74yo M with PMH of lung cancer currently t/w immunotherapy, history of alcohol use disorder, adrenal insufficiency, hypothyroidism, who presented to ED for diffuse body pain and fatigue.
Diffuse body pain, weakness
- Differential diagnosis includes myositis secondary to immunotherapy, hypothyroidism (see separate A/P below)
- CK minimally elevated 200 rules out rhabdomyolysis
- COVID negative, influenza negative
- Pain controlled with tylenol, gabapentin, and tramadol (x2 overnight)
- Overall improving improving, clinically stable for discharge. Ambulating halls independently
- Will increase home gabapentin dose from 300 to 600mg BID
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
- Creatinine of 2.2 on admission --> 1.5 today, improving
- UA unremarkable
- Inadequate urine output prior 24 hours, ~300mL
- Check bladder scan, and consider straight cath if scan is concerning for urinary retention
- Encourage PO hydration
- If urine output is improving and patient is voiding spontaneously, anticipate discharge
Chronic diarrhea unclear etiology
- Recent history of cdiff- toxin positive 03/30, unknown if treatment was completed
- Negative for infectious cdiff this admission- toxin negative (Ag positive from nontoxogenic strain, does not require any tx/follow up)
- Stool culture negative
- Celiac disease panel pending
- CMP stable
- Encourage PO hydration. Low lactose diet while inpatient. Reviewed that limiting lactose may help symptoms, even though he is not lactose intolerant at baseline.
- Ok to resume loperamide if needed
- Will need outpatient GI follow up
Hypothyroidism
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
- He reports taking synthroid in correct manner at home
- TSH 27, free t4 0.96
- Will increase synthroid dose to 125mcg daily
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
Adrenal insufficiency
- He was taking steroids prior to admission, and his dose was doubled while in hospital for stress dosing.
- Will resume his home steroid regimen at discharge
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
Chronic HFpEF
- Echo 04/07/24: LV EF 60%, severe eccentric mitral regurgitation
- 2g sodium diet while inpatient
- Lasix were held inpatient in setting of ADALI, which is resolving with improved fluid status
- Resume home lasix as needed at discharge
History of alcohol use disorder
- Reports abstinence for several months, negative alc quant on admission
- Documentation from previous admission mention recent history of alcohol withdrawal and DT during hospitalizations at outside facilities ()
- Records requested from [facility]
- MSAS protocol 2 this morning (max 3 overnight)
- S/p IV thiamine
- Recommend continued alcohol abstinence
Episode of symptomatic hypoglycemia: resolved
- BG 41 yesterday AM, with slowed cognition. Both of which normalized after juice and breakfast.
- IVF changed from NS to D5NS yesterday.
- No further episodes of hypoglycemia, tolerating NS IVF today. BG 116-167 today
Lung cancer on immunotherapy- follows [facility]
COPD- Continue home inhalers
Full code
DVT prophylaxis-heparin
Diet inpatient: 2g Na, low lactose
Anticipated Discharge: Today
Subjective/Interval History
-
Date of Service: April 30, 2024
No acute events overnight. Feeling much better than past few days. He continues to have diffuse musculoskeletal pain and neuropathy pain, both of which are improving. He did have diarrhea overnight. He denies headache, lightheadedness, dizziness,
chest pain, shortness of breath, nausea, vomiting, abdominal pain. He is tolerating PO diet and ambulating independently to bathroom with IV pole. He feels well and would like to go home.
Objective Data
-
Labs:
Laboratory Results
04/30/24
06:22
WBC 3.4 L
Hgb 8.3 L D
Hct 24.8 L
Plt Count 275
Sodium 135
Potassium 4.2
Chloride 104
Carbon Dioxide 19 L
BUN 22 H
Creatinine 1.5 H
Glucose 116 H
Calcium 8.9
Total Bilirubin 0.6
AST 23
ALT 10
Alkaline Phosphatase 48
Vital Signs:
Vital Signs
Temp Pulse Resp BP Pulse Ox
97.8 F 72 19 117/65 98
04/30/24 08:00 04/30/24 08:00 04/30/24 08:00 04/30/24 08:00 04/30/24 08:00
I&O
04/29/24 04/30/24 05/01/24
06:59 06:59 06:59
Intake Total 980 / 980 1320 / 1320
Output Total 300 / 300
Balance 980 / 980 1020 / 1020
Review of Systems
-
History Source: Patient
All other systems: Reviewed and negative
Physical Exam
-
General: Well Developed, Well Nourished, No Apparent Distress, Comfortable, Conversant and Appears Chronically Ill
HEENT: Normocephalic, Atraumatic and Other (poor dentition)
Respiratory: Clear to Auscultation and Non Labored Respirations
Cardiac: Regular Rhythm and S1/S2
GI: Soft, Nontender, Nondistended and Normal Bowel Sounds
Musculoskeletal: No Cyanosis, No Edema and Other (bilateral UE, LE muscles diffusely nontender to palpation)
Skin: Warm and Dry
Neuro: Awake, Alert, Oriented and Nonfocal/Grossly Intact; Negative Tremors (no flapping asterixis) or Facial Droop
Psych: Calm and Intact Judgement/Insight
Data Reviewed
-
Labs: Labs Reviewed by me and Discussed with Physician
[2024-04-30 11:26] VITALS: BP 109/61
[2024-04-30 15:01] VITALS: BP 119/69
[2024-04-30 16:59] LABS: Glucose - Point of Care 143 mg/dl (70-99)
[2024-04-30] MEDS: CORTEF 20 MG PO (17:29)
--- NOTE | 2024-04-30 17:34 | W.DCSUMMARY ---
Addendum entered and electronically signed by Bryce Clifton MD 04/30/24 22:57:
Read, reviewed, and agree. See same day progress note for additional details.
Noel Clifton MD
Original Note:
Documented by User: Elissa Grace MD, Resident 04/30/24 20:14
Discharge Summary
Discharge Data
Date of Admission: 04/28/24
Date of Discharge: 04/30/24
-
Pending Results: Yes
Additional Pending Results:
Celiac panel
Hospital Course
Discharging Physician : Dr. Grace, Dr. Clifton
Disposition : home
Primary care physician : Dr. Ma
Principal Discharge diagnosis : ADALI secondary to hypovolemia, acute on chronic diarrhea, poor PO intake
Chronic Discharge diagnosis : lung cancer undergoing immunotherapy, COPD, HFpEF, adrenal insufficiency, hypothyroidism, chronic diarrhea, history of alcohol use disorder
Hospital Course : Presented to ED for diffuse body pain and fatigue, and was found to have ADALI. His lasix were held and ADALI responded to treatment with IVF. Cr 2.2 on admission --> 1.5 at discharge. Infectious causes of his symptoms were ruled out:
Cdiff, stool culture, covid, flu negative. Celiac panel pending. His TSH was elevated at 27, and his synthroid dose was increased. He had a brief episode of symptomatic hypoglycemia, which resolved with D5NS IV and encouraging PO intake. Throughout
hospitalization his home prednisone was doubled for stress dose steroids. His pain was managed with tylenol, gabapentin, tramadol. On day of discharge he was stable, tolerating PO diet, ambulating independently. He was discharged home and will
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
Important imaging findings :
Chest xray 04/28/24 IMPRESSION:
There is flattening of the diaphragms suggesting chronic obstructive pulmonary disease with mild stable interstitial fibrosis in the right lung
There are no superimposed acute abnormalities
Procedure findings : N/A
Discharge Plan
-
Patient Disposition: Home (Routine Discharge)
Discharge Diagnosis/Procedures: prerenal ADALI secondary to diarrhea and dehydration, chronic diarrhea, diffuse body pain, hypoglycemia, adrenal insufficiency, hypothyroidism
Condition: Fair
Diet: As tolerated and Regular
Activity: As tolerated
Bathing Restrictions: None
Blood Work: TSH in 4-6 weeks
Other Services: VN
Instructions: Calloway Diet, Hypovolemia in adults
Referrals:
Jayesh Ma PA [Family Provider] - in one to two weeks
Additional Discharge Medication Instructions: Medication changes:
- Gabapentin dose was increased from 300mg twice a day to 600mg twice a day. Take 2 capsules (each capsule has 300mg, so 2 capsules is 600mg) in the morning and 2 capsules in the evening.
- Synthroid/levothyroxine dose was increased from 112 mcg to 125 mcg
- You can take your lasix when you feel like you need it (maximum of once per day) instead of taking it daily
Prescriptions:
New
levothyroxine [Synthroid] 125 mcg tablet
125 mcg PO DAILY Qty: 30 0RF
gabapentin 300 mg Capsule
600 mg PO BID Qty: 120 0RF
Rx Instructions:
Take 2 caps (600mg) twice per day
Continued
pantoprazole [Protonix] 40 mg Tablet,Delayed Release (Dr/Ec)
40 mg PO DAILY
hydrocortisone 10 mg Tablet
20 mg PO DAILY
hydrocortisone 10 mg Tablet
10 mg PO NOON
Anoro Ellipta 62.5-25 mcg/actuation Blister With Device
1 inh INHALATION R DAILY
albuterol sulfate 2.5 mg /3 mL (0.083 %) Solution For Nebulization
2.5 mg INHALATION R Q4HPRN PRN (Reason: SOB)
magnesium oxide 420 mg Tablet
420 mg PO DAILY
thiamine HCl (vitamin B1) 100 mg Tablet
100 mg PO DAILY
acetaminophen [Tylenol Extra Strength] 500 mg Tablet
1,000 mg PO Q6HPRN PRN (Reason: mild pain)
zinc sulfate 50 mg zinc (220 mg) Tablet
50 mg PO DAILY
cholecalciferol (vitamin D3) [Vitamin D3] 25 mcg (1,000 unit) Tablet
25 mcg PO DAILY
Arnuity Ellipta 100 mcg/actuation Blister With Device
1 inh INHALATION R DAILY
Ip 60
2 tab PO BID
melatonin 10 mg Tablet
20 mg PO HS
Held
furosemide [Lasix] 40 mg tablet
40 mg PO DAILY Qty: 30 0RF
Hold Instructions: Resume on 05/01/24. Take lasix if you need to once per day
Discontinued
levothyroxine [Synthroid] 112 mcg Tablet
112 mcg PO DAILY
gabapentin 300 mg Capsule
300 mg PO BID
Discharge Orders:
Discharge Patient (As Directed); Ordered 04/30/24
Ordered By: Elissa Grace
Discharge Date and Time
Discharge Date/Time: 04/30/24 18:25
Print Language: JORDANIAN

Documented by User: Bryce Clifton MD 04/30/24 22:56
Discharge Summary
Discharge Data
Date of Admission: 04/28/24
Date of Discharge: 04/30/24
Discharge Plan
-
Patient Disposition: Home (Routine Discharge)
Discharge Diagnosis/Procedures: prerenal ADALI secondary to diarrhea and dehydration, chronic diarrhea, diffuse body pain, hypoglycemia, adrenal insufficiency, hypothyroidism
Condition: Fair
Diet: As tolerated and Regular
Activity: As tolerated
Bathing Restrictions: None
Blood Work: TSH in 4-6 weeks
Other Services: VN
Instructions: Calloway Diet, Hypovolemia in adults
Referrals:
Jayesh Ma PA [Family Provider] - in one to two weeks
Additional Discharge Medication Instructions: Medication changes:
- Gabapentin dose was increased from 300mg twice a day to 600mg twice a day. Take 2 capsules (each capsule has 300mg, so 2 capsules is 600mg) in the morning and 2 capsules in the evening.
- Synthroid/levothyroxine dose was increased from 112 mcg to 125 mcg
- You can take your lasix when you feel like you need it (maximum of once per day) instead of taking it daily
Prescriptions:
New
levothyroxine [Synthroid] 125 mcg tablet
125 mcg PO DAILY Qty: 30 0RF
gabapentin 300 mg Capsule
600 mg PO BID Qty: 120 0RF
Rx Instructions:
Take 2 caps (600mg) twice per day
Continued
pantoprazole [Protonix] 40 mg Tablet,Delayed Release (Dr/Ec)
40 mg PO DAILY
hydrocortisone 10 mg Tablet
20 mg PO DAILY
hydrocortisone 10 mg Tablet
10 mg PO NOON
Anoro Ellipta 62.5-25 mcg/actuation Blister With Device
1 inh INHALATION R DAILY
albuterol sulfate 2.5 mg /3 mL (0.083 %) Solution For Nebulization
2.5 mg INHALATION R Q4HPRN PRN (Reason: SOB)
magnesium oxide 420 mg Tablet
420 mg PO DAILY
thiamine HCl (vitamin B1) 100 mg Tablet
100 mg PO DAILY
acetaminophen [Tylenol Extra Strength] 500 mg Tablet
1,000 mg PO Q6HPRN PRN (Reason: mild pain)
zinc sulfate 50 mg zinc (220 mg) Tablet
50 mg PO DAILY
cholecalciferol (vitamin D3) [Vitamin D3] 25 mcg (1,000 unit) Tablet
25 mcg PO DAILY
Arnuity Ellipta 100 mcg/actuation Blister With Device
1 inh INHALATION R DAILY
Ip 60
2 tab PO BID
melatonin 10 mg Tablet
20 mg PO HS
Held
furosemide [Lasix] 40 mg tablet
40 mg PO DAILY Qty: 30 0RF
Hold Instructions: Resume on 05/01/24. Take lasix if you need to once per day
Discontinued
levothyroxine [Synthroid] 112 mcg Tablet
112 mcg PO DAILY
gabapentin 300 mg Capsule
300 mg PO BID
Discharge Orders:
Discharge Patient (As Directed); Ordered 04/30/24
Ordered By: Elissa Grace
Discharge Date and Time
Discharge Date/Time: 04/30/24 18:25
Print Language: JORDANIAN
[2024-04-30 18:08] VITALS: BP 124/67
[2024-04-30 23:40] LABS: IgA 89 mg/dl (70-400)
== END 2024-04-30 18:25 | disposition home health service (06) | DRG 683 ==
LOC: 3 WEST ACU 21:44
PROVIDERS: Physician Assistant; Student in an Organized Health Care Education/Training Program; ADMITTING PHYSICIAN Hospitalist; ATTENDING PHYSICIAN Family Medicine; EMERGENCY PHYSICIAN Emergency Medicine; FAMILY PHYSICIAN Physician Assistant
DX: N17.9 Acute kidney failure, unspecified (principal); C34.90 Malignant neoplasm of unspecified part of unspecified bronchus or lung; E27.40 Unspecified adrenocortical insufficiency; I50.32 Chronic diastolic (congestive) heart failure; K52.9 Noninfective gastroenteritis and colitis, unspecified; J44.9 Chronic obstructive pulmonary disease, unspecified; F10.10 Alcohol abuse, uncomplicated; E03.9 Hypothyroidism, unspecified; E16.2 Hypoglycemia, unspecified; E86.0 Dehydration; Z11.52 Encounter for screening for COVID-19
CPT/HCPCS: 51798; 71046; 80053; 81003; 82077; 82550; 82784; 82962; 83516; 84439; 84443; 85025; 85027; 86231; 87045; 87046; 87324; 87427; 87449; 87502; 87811; 94640; 96360; 99285

== ENCOUNTER 2024-08-10 14:53 | Emergency (ER) | payer OTHER, SELFPAY ==
[2024-08-10] VITALS (9 sets, daily range): BP systolic 111–139; BP diastolic 64–79; BMI 27.1
--- NOTE | 2024-08-10 16:55 | ED.GENMED ---
History of Present Illness
General
Chief Complaint: Chest Pain
Source: patient and records
Exam Limitations: none
Time Seen by Provider: 08/10/24 16:35
Nursing documentation reviewed up to this point in time: agreed with
History of Present Illness
History of Present Illness:
74-year-old male alcohol use disorder COPD metastatic melanoma heart failure neuropathy adrenal insufficiency hypothyroid presents with fatigue chest pain pain in his bilateral shoulders shortness of breath fever yesterday had been on an infusion
for melanoma few months ago stopped due to side effects restarted month or so ago, the symptoms started about a week ago, the fever was yesterday improved with Tylenol he denies alcohol use in the triage note and his friend indicate that he does
drink alcohol as to the prior records
Past History
Past History
ED Past Medical History: Cancer (Lung cancer), COPD, GERD and Other (Alcohol abuse/tobacco abuse)
ED Past Surgical History: Other (hernia)
Social History
Tobacco: Smoker
Alcohol: Chronic alcoholic
Drug: None
Personal:
Living: with family
Employment: Retired
Family History
Family History: Other (Noncontributory)
Review of Systems
Review of Systems
All Other Systems: Not applicable
Constitutional: Reports fever and fatigue; Denies chills
EENT: Reports no symptoms
Respiratory: Reports cough and trouble breathing
Cardiac: Reports chest pain; Denies diaphoresis or syncope
ABD/GI: Reports no symptoms
: Reports no symptoms
Musculoskeletal: Reports no symptoms
Skin: Reports no symptoms
Neurological: Reports weakness; Denies dizzy
Endocrine: Reports no symptoms
Phy Exam
Physical Exam
Physical Exam:
Physical Exam
General: disheveled but cooperative
Neck: No jaw
Heart: s1/s2 regular rate and rhythm, no murmur. equal radial pulses.
Lungs: Crackles in the left greater than
Abdomen: Not tender
Neuro: alert and oriented. no focal neurological deficits
Skin: no rash
Psychiatric: well kept. interactive and cooperative
Extremities: no edema. no calf tenderness.
Scores
Heart Score for Chest Pain Patients
STEMI patient?: No
History: Slightly or Non-Suspicious
ECG: Normal
Age: >/= 65 years
Risk Factors: 1 or 2 Risk Factors
Troponin: </= Normal Limit
Heart Score for Chest Pain Patients: 3
Heart Score Risk: 2.5% MACE over next 6 weeks
Course
Orders/Labs/Results
Orders:
Orders
08/10/24 14:55
EKG [Electrocardiogram (*1)] Urgent
Reason for Study: Chest Pain
EKG- Treatment ONCE
08/10/24 16:49
Cardiac Monitoring- Treatment ONCE
CR Chest - 2 Views Urgent
Comment:
Reason For Exam: cp
08/10/24 16:58
Alcohol Urgent
COVID-19 Antigen Urgent
Source: Nasal Swab
Complete Blood Count/With Diff Urgent
Comprehensive Metabolic Panel Urgent
Free T4 Urgent
Comment: ADD ON
Lipase Urgent
Magnesium Urgent
NT-proBNP Urgent
TSH Urgent
Troponin I Urgent
Influenza A+B Rapid Molecular Urgent
ALETHA Source: Nasal Swab
Specimen Description:
08/10/24 17:02
Add On- LAB Urgent
Tests Added?: alcohol
08/10/24 17:31
Ketorolac [Toradol] 30 mg IV NOW STA
08/10/24 17:33
0.9% Sodium Chloride 1000 ml [Nss] 1,000 ml IV BOLUS
08/10/24 19:48
Add On- LAB Urgent
Tests Added?: T4
Abnormal Lab Results
08/10/24
16:58
RBC 3.76 L 10^6/uL
(4.70-6.10)
Hgb 11.3 L g/dL
(13.0-18.0)
Hct 35.6 L %
(39.0-52.0)
MCV 94.7 H fL
(80.0-94.0)
MCHC 31.7 L g/dL
(33.0-37.0)
Abs Immat Gran (auto) 0.1 H 10^3/uL
(0-0.05)
Absolute Neuts (auto) 7.3 H 10^3/uL
(1.4-6.5)
Absolute Monos (auto) 1.3 H 10^3/uL
(0.1-0.6)
Immature Gran % 1.1 H %
(0-0.5)
Lymphocytes % 14.4 L %
(20.5-51.1)
Monocytes % 12.3 H %
(1.7-9.3)
Glucose 120 H mg/dl
(70-99)
ALT 58 H U/L
(0-50)
Alkaline Phosphatase 271 H U/L
(38-126)
Total Protein 5.9 L g/dl
(6.3-8.2)
TSH 12.00 H uIU/ml
(0.47-4.68)
08/10/24 16:58
08/10/24 16:58
Vital Signs
Initial and Last Documented VS:
Initial Vital Signs
Temp Pulse Resp BP Pulse Ox
98.6 F 102 18 128/79 98
08/10/24 14:59 08/10/24 14:59 08/10/24 14:59 08/10/24 14:59 08/10/24 14:59
Last Documented Vital Signs
Temp Pulse Resp BP Pulse Ox
98.6 F 83 15 111/71 96
08/10/24 14:59 08/10/24 18:15 08/10/24 18:15 08/10/24 18:00 08/10/24 18:23
MDM/Problems Addressed
Differential Diagnosis Includes:
Infectious medication effect electrolyte abnormality pneumonia heart failure conceivably ACS
MDM/Problems Addressed:
Chest pain fatigue fever shoulder pain
Chronic conditions affecting care:
Alcoholism cancer
Acute Exacerbation and/or Progression of Chronic Illness:
Alcoholism cancer
*Radiology
Radiology exam reviewed: preliminary read by ED provider
*Pulse Oximetry
Patient hypoxic: no
*EKG
Interpretation: abnormal
Comparison EKG: no comparison EKG present
Heart Rate: 78
Rate: normal
Rhythm: sinus
Ischemia: non-specific ST changes
*Hogshead Hand Interpretation
Rate: normal
Interpretation: normal
Heart Rate: 78
Rhythm: sinus
*Critical Care Note
Total Time (30-74mins, 75-104mins- exclusive of procedures): Not Applicable
Update Note
Update Note:
Update labs noted chest x-ray noted patient states he is feeling better has received about 500 saline Toradol
Update patient remains hemodynamically stable, multiple complaints for a week including fever, undetectable troponin
ED Attending Note
-
Portions of this chart may have been created with voice recognition software.� Occasional wrong word or��sound alike� substitutions may have occurred due to the inherent limitations of voice recognition software.
Discharge Plan
Departure
Patient Disposition: Home (Routine Discharge)
Date of Disposition: 08/10/24
Time of Disposition: 20:42
Patient with high blood pressure during this ER visit?: No
Condition: Good
Discharge Problem:
Metastatic melanoma, Nontraumatic shoulder pain
Instructions: Chest Pain PCP Follow Up
Prescriptions:
No Action
pantoprazole [Protonix] 40 mg Tablet,Delayed Release (Dr/Ec)
40 mg PO DAILY
hydrocortisone 10 mg Tablet
20 mg PO DAILY
hydrocortisone 10 mg Tablet
10 mg PO DAILY@1400
Anoro Ellipta 62.5-25 mcg/actuation Blister With Device
1 inh INHALATION R DAILY
albuterol sulfate 2.5 mg /3 mL (0.083 %) Solution For Nebulization
2.5 mg INHALATION R DAILY@1400
thiamine HCl (vitamin B1) 100 mg Tablet
100 mg PO DAILY
acetaminophen [Tylenol Extra Strength] 500 mg Tablet
1,000 mg PO Q6HPRN PRN (Reason: mild pain/headache)
zinc sulfate 50 mg zinc (220 mg) Tablet
50 mg PO DAILY
cholecalciferol (vitamin D3) [Vitamin D3] 25 mcg (1,000 unit) Tablet
25 mcg PO DAILY
Arnuity Ellipta 100 mcg/actuation Blister With Device
1 inh INHALATION R DAILY
furosemide [Lasix] 40 mg tablet
40 mg PO DAILY Qty: 30 0RF
levothyroxine [Synthroid] 125 mcg tablet
125 mcg PO DAILY Qty: 30 0RF
gabapentin 300 mg Capsule
600 mg PO BID Qty: 120 0RF
atorvastatin 40 mg Tablet
40 mg PO DAILY
cyanocobalamin (vitamin B-12) 1,000 mcg Tablet
1,000 mcg PO DAILY
amlodipine 2.5 mg Tablet
2.5 mg PO HS
prochlorperazine maleate 10 mg Tablet
10 mg PO TIDPRN PRN (Reason: headache)
potassium 99 mg Tablet
99 mg PO DAILY
amitriptyline 10 mg Tablet
10 mg PO DAILY
albuterol sulfate 90 mcg/actuation Hfa Aerosol Inhaler
2 puff INHALATION R Q4HPRN PRN (Reason: sob)
magnesium oxide 200 mg magnesium Tablet
100 mg PO SUMOTUTHSA
magnesium oxide 200 mg magnesium Tablet
200 mg PO WEFR
Referrals:
Jayesh Ma PA [Family Provider] - Next open appointment
Activity Restrictions/Additional Instructions:
Drink plenty of fluids, Tylenol or ibuprofen for pain follow-up with your primary care provider and cancer specialist
Interventions
Interventions:
*Risk Screen - Suicide Last Done: 08/10/24 14:59
*General Assessment Last Done: 08/10/24 14:59
*Neglect/Abuse Screening Last Done: 08/10/24 14:59
ED- Fall Risk Assessment Last Done: 08/10/24 17:15
*ED COVID-19 Vaccine History Last Done: 08/10/24 14:59
ED- Cardiac Assessment Last Done: 08/10/24 17:15
Discharge Date and Time
Print Language: IRAQI
[2024-08-10 17:13] LABS: % Basophils 0.5 % (0-2); % Eosinophils 1.8 % (0-6); % Immature Granulocytes 1.1 % (0-0.5); % Lymphocytes 14.4 % (20.5-51.1); % Monocytes 12.3 % (1.7-9.3); % Neutrophils 69.9 % (42.2-75.2); Absolute Basophils 0.1 10^3/uL (0-0.2); Absolute Eosinophils 0.2 10^3/uL (0-0.7); Absolute Immature Granulocytes 0.1 10^3/uL (0-0.05); Absolute Lymphocytes 1.5 10^3/uL (1.2-3.4); Absolute Monocytes 1.3 10^3/uL (0.1-0.6); Absolute Neutrophils 7.3 10^3/uL (1.4-6.5); Hematocrit 35.6 % (39.0-52.0); Hemoglobin 11.3 g/dL (13.0-18.0); Mean Corp Hgb Conc. 31.7 g/dL (33.0-37.0); Mean Corpuscular Hgb 30.1 pg (27.0-31.0); Mean Corpuscular Volume 94.7 fL (80.0-94.0); Mean Platelet Volume 9.5 fL (7.4-10.4); Nucleated Red Blood Cells % 0 % (-); Platelet Count 310 10^3/uL (130-400); Red Blood Cell Count 3.76 10^6/uL (4.70-6.10); Red Cell Dist. Width 14.2 % (11.5-14.5); White Blood Cell Count 10.5 10^3/uL (4.8-10.8)
[2024-08-10 17:27] LABS: ALT (SGPT) 58 U/L (0-50); AST (SGOT) 47 U/L (17-59); Albumin 3.7 g/dl (3.5-5.0); Alkaline Phosphatase 271 U/L (38-126); Blood Urea Nitrogen 17 mg/dl (9-20); Carbon Dioxide 30 mmol/L (22-30); Chloride 103 mmol/L (98-107); Estimated Creatinine Clearance 72 ml/min; Glucose 120 mg/dl (70-99); Magnesium 1.8 mg/dl (1.6-2.3); Potassium 3.8 mmol/L (3.5-5.1); Sodium 140 mmol/L (135-145); Total Bilirubin 0.3 mg/dl (0.2-1.3); Total Protein 5.9 g/dl (6.3-8.2); eGFR > 60.00
[2024-08-10 17:29] LABS: Lipase 47 U/L (23-300)
[2024-08-10 17:30] LABS: COVID-19 Antigen Negative (Negative)
[2024-08-10 17:32] LABS: Alcohol None Detected
[2024-08-10 17:37] LABS: NT-proBNP 807 pg/ml; Troponin I < 0.012 ng/ml
[2024-08-10] MEDS: NSS 1000 IV (17:40)
[2024-08-10] MEDS: TORADOL 30 MG IV (17:41)
[2024-08-10 20:36] LABS: Free T4 1.05 ng/dl (0.78-2.19)
== END 2024-08-10 20:58 | disposition home or self-care (01) ==
LOC: EMR 14:53
PROVIDERS: EMERGENCY PHYSICIAN Emergency Medicine; FAMILY PHYSICIAN Physician Assistant
DX: C43.9 Malignant melanoma of skin, unspecified (principal); M25.512 Pain in left shoulder; M25.511 Pain in right shoulder; E03.9 Hypothyroidism, unspecified; I50.9 Heart failure, unspecified; J44.9 Chronic obstructive pulmonary disease, unspecified; K21.9 Gastro-esophageal reflux disease without esophagitis; Z85.118 Personal history of other malignant neoplasm of bronchus and lung; F17.200 Nicotine dependence, unspecified, uncomplicated; F10.20 Alcohol dependence, uncomplicated
CPT/HCPCS: 96374; 96361; 99285; 71046; 80053; 82077; 83690; 83735; 83880; 84439; 84443; 84484; 85025; 87502; 87811; 93005

== ENCOUNTER 2024-08-13 05:40 | Inpatient (IN) | payer OTHER, SELFPAY ==
[2024-08-13] VITALS (33 sets, daily range): BP systolic 83–148; BP diastolic 53–104; PULSE 98; O2SAT 95; BMI 26.0; BMI 25.2
[2024-08-13] MEDS: TYLENOL 650 MG PO (03:16)
[2024-08-13 03:20] LABS: % Basophils 0.6 % (0-2); % Eosinophils 1.8 % (0-6); % Immature Granulocytes 1.6 % (0-0.5); % Lymphocytes 21.5 % (20.5-51.1); % Monocytes 9.4 % (1.7-9.3); % Neutrophils 65.1 % (42.2-75.2); Absolute Basophils 0.1 10^3/uL (0-0.2); Absolute Eosinophils 0.2 10^3/uL (0-0.7); Absolute Immature Granulocytes 0.2 10^3/uL (0-0.05); Absolute Lymphocytes 2.6 10^3/uL (1.2-3.4); Absolute Monocytes 1.1 10^3/uL (0.1-0.6); Absolute Neutrophils 7.9 10^3/uL (1.4-6.5); Hematocrit 42.4 % (39.0-52.0); Hemoglobin 13.5 g/dL (13.0-18.0); Mean Corp Hgb Conc. 31.8 g/dL (33.0-37.0); Mean Corpuscular Hgb 29.7 pg (27.0-31.0); Mean Corpuscular Volume 93.4 fL (80.0-94.0); Mean Platelet Volume 9.2 fL (7.4-10.4); Nucleated Red Blood Cells % 0 % (-); Platelet Count 382 10^3/uL (130-400); Red Blood Cell Count 4.54 10^6/uL (4.70-6.10); Red Cell Dist. Width 14.2 % (11.5-14.5); White Blood Cell Count 12.1 10^3/uL (4.8-10.8)
[2024-08-13 03:32] LABS: Lactic Acid 2.2 mmol/L (0.7-2.0)
[2024-08-13 03:33] LABS: ALT (SGPT) 40 U/L (0-50); AST (SGOT) 51 U/L (17-59); Albumin 3.7 g/dl (3.5-5.0); Alkaline Phosphatase 383 U/L (38-126); Blood Urea Nitrogen 17 mg/dl (9-20); Carbon Dioxide 28 mmol/L (22-30); Chloride 97 mmol/L (98-107); Estimated Creatinine Clearance 59 ml/min; Glucose 113 mg/dl (70-99); Potassium 3.7 mmol/L (3.5-5.1); Sodium 137 mmol/L (135-145); Total Bilirubin 1.1 mg/dl (0.2-1.3); Total Protein 6.1 g/dl (6.3-8.2); eGFR > 60.00
[2024-08-13 03:38] LABS: COVID-19 Antigen Negative (Negative)
[2024-08-13 03:45] LABS: Troponin I < 0.012 ng/ml
--- NOTE | 2024-08-13 04:11 | ED.GENMED ---
History of Present Illness
General
Chief Complaint: Chest Problem
Source: patient
Exam Limitations: none
Time Seen by Provider: 08/13/24 03:23
Nursing documentation reviewed up to this point in time: agreed with
History of Present Illness
History of Present Illness:
Pleasant 74-year-old male that has been battling lung cancer for the last 2 years. He is being treated at [facility] and states that he has been unable to tolerate the treatments into session so he recently took 8 months off. He recently restarted
chemotherapy and states that has been having chest pain and difficulty breathing. Today he had a fever of 100.8 and is requiring oxygen. He is a former smoker and has a history of CHF and CAD. 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
treatments. He has been having worsening dyspnea and chest pain for the last 4 days. He has no other complaints.
Past History
Past History
ED Past Medical History: Cancer (Lung cancer), COPD, GERD and Other (Alcohol abuse/tobacco abuse)
ED Past Surgical History: Other (hernia)
Social History
Tobacco: Smoker
Alcohol: Chronic alcoholic
Drug: None
Personal:
Living: with family
Employment: Retired
Family History
Family History: Other (Noncontributory)
Review of Systems
Review of Systems
Allergies reviewed?: Yes
All Other Systems: ROS reviewed and negative except as documented in HPI and ROS
Phy Exam
General Physical Exam
General Presentation: moderate distress (On nasal cannula)
General age: appears older than age
General Skin: warm and dry
General Habitus: elderly and frail
General Mental: alert and anxious
Cardiovascular Exam
Cardiovascular Exam: tachycardia
Pulmonary Exam
Pulmonary Exam: chest non tender, no cough, generalized wheezing and respiratory distress (Mild)
Oxygen Status: oxygen 2 liters via NC
Breath Sounds: Wheeze: generalized
Neurological Exam
Neurological Exam: alert and oriented x3
Musculoskeletal Exam
Musculoskeletal Exam: full ROM and no edema
Skin Exam
Skin Exam: normal color and warm/dry
Psychiatric Exam
Psychiatric Exam: normal mood/affect and anxious
Sepsis
Sepsis Screening
Sepsis Assessment: Severe Sepsis
Sepsis Screening: Lactate >2mmol/L
Sepsis Screen
Sepsis Screen: Severe Sepsis
Date: 08/13/24
Time: 04:22
Course
Orders/Labs/Results
Orders:
Orders
08/13/24 03:00
Electrocardiogram (*1) Urgent
Reason for Study: Chest Pain
Cardiac Monitoring- Treatment ONCE
EKG- Treatment ONCE
IV Insert/Care/Rem.- Treatment PRN
O2 Therapy [RESP] Urgent
Titrate/Wean O2 to maintain O2 sat greater than (%): 90
Special Instructions: Maintain sats >/=90%
Pulse Ox/spot Check [RESP] Urgent
Quantity: 1
Special Instructions: ON ROOM AIR
08/13/24 03:11
COVID-19 Antigen Urgent
Source: Nasal Swab
Complete Blood Count/With Diff Urgent
Comprehensive Metabolic Panel Urgent
Lactic Acid Urgent
Troponin I Urgent
Blood Culture Urgent
ALETHA Source: Blood/Venous
Specimen Description:
Influenza A+B Rapid Molecular Urgent
ALETHA Source: Nasal Swab
Specimen Description:
08/13/24 03:14
Acetaminophen [Tylenol] 650 mg .ROUTE .STK-MED ONE
08/13/24 03:16
Acetaminophen [Tylenol] 650 mg PO NOW STA
08/13/24 03:23
CT Chest Pe Study Urgent
Comment:
Reason For Exam: lung CA tachycardia
08/13/24 03:39
Ondansetron Injectable [Zofran] 4 mg .ROUTE .STK-MED ONE
08/13/24 03:59
Blood Culture Urgent
ALETHA Source: Blood/Venous
Specimen Description:
Abnormal Lab Results
08/13/24
03:11
WBC 12.1 H 10^3/uL
(4.8-10.8)
RBC 4.54 L 10^6/uL
(4.70-6.10)
MCHC 31.8 L g/dL
(33.0-37.0)
Abs Immat Gran (auto) 0.2 H 10^3/uL
(0-0.05)
Absolute Neuts (auto) 7.9 H 10^3/uL
(1.4-6.5)
Absolute Monos (auto) 1.1 H 10^3/uL
(0.1-0.6)
Immature Gran % 1.6 H %
(0-0.5)
Monocytes % 9.4 H %
(1.7-9.3)
Chloride 97 L mmol/L
(98-107)
Glucose 113 H mg/dl
(70-99)
Lactic Acid 2.2 H mmol/L
(0.7-2.0)
Alkaline Phosphatase 383 H U/L
(38-126)
Total Protein 6.1 L g/dl
(6.3-8.2)
08/13/24 03:11
08/13/24 03:11
Vital Signs
Initial and Last Documented VS:
Initial Vital Signs
Temp Pulse Resp BP Pulse Ox
100.1 F 127 20 148/80 96
08/13/24 03:01 08/13/24 03:01 08/13/24 03:01 08/13/24 03:01 08/13/24 03:01
Last Documented Vital Signs
Temp Pulse Resp BP Pulse Ox
101.8 F H 115 19 111/94 95
08/13/24 03:12 08/13/24 04:00 08/13/24 04:00 08/13/24 04:00 08/13/24 04:00
*Critical Care Note
Total Time (30-74mins, 75-104mins- exclusive of procedures): 30 (Critical care statement: A total of 30 minutes of critical care time was provided for this patient. This time is separate from time utilized to perform the aforementioned documented
procedures. Aggregate critical care time includes only time during which I was engaged in work directl)
Update Note
Update Note:
CTA chest with IV contrast
IMPRESSION:
No pulmonary embolus. Aortic atherosclerotic disease without dissection or aneurysm.
Heart size within normal limits. Coronary artery disease. Small pericardial effusion.
Patchy opacities likely reflecting pneumonia. No pneumothorax or pleural effusion. Hepatic steatosis. Stomach decompressed.
Finalized at 3:58 AM EST
ED Attending Note
-
Portions of this chart may have been created with voice recognition software.� Occasional wrong word or��sound alike� substitutions may have occurred due to the inherent limitations of voice recognition software.
Discharge Plan
Departure
Patient Disposition: Admit
Date of Disposition: 08/13/24
Time of Disposition: 04:23
Admit to doctor: Pneumonia
Presentation/result/management discussed w/ accepting MD/DO: Hospitalist
Condition: Serious
Discharge Problem:
HCAP (healthcare-associated pneumonia), Lung cancer, COPD (chronic obstructive pulmonary disease)
Prescriptions:
No Action
pantoprazole [Protonix] 40 mg Tablet,Delayed Release (Dr/Ec)
40 mg PO DAILY
hydrocortisone 10 mg Tablet
20 mg PO DAILY
hydrocortisone 10 mg Tablet
10 mg PO DAILY@1400
Anoro Ellipta 62.5-25 mcg/actuation Blister With Device
1 inh INHALATION R DAILY
albuterol sulfate 2.5 mg /3 mL (0.083 %) Solution For Nebulization
2.5 mg INHALATION R DAILY@1400
thiamine HCl (vitamin B1) 100 mg Tablet
100 mg PO DAILY
acetaminophen [Tylenol Extra Strength] 500 mg Tablet
1,000 mg PO Q6HPRN PRN (Reason: mild pain/headache)
zinc sulfate 50 mg zinc (220 mg) Tablet
50 mg PO DAILY
cholecalciferol (vitamin D3) [Vitamin D3] 25 mcg (1,000 unit) Tablet
25 mcg PO DAILY
Arnuity Ellipta 100 mcg/actuation Blister With Device
1 inh INHALATION R DAILY
furosemide [Lasix] 40 mg tablet
40 mg PO DAILY Qty: 30 0RF
levothyroxine [Synthroid] 125 mcg tablet
125 mcg PO DAILY Qty: 30 0RF
gabapentin 300 mg Capsule
600 mg PO BID Qty: 120 0RF
atorvastatin 40 mg Tablet
40 mg PO DAILY
cyanocobalamin (vitamin B-12) 1,000 mcg Tablet
1,000 mcg PO DAILY
amlodipine 2.5 mg Tablet
2.5 mg PO HS
prochlorperazine maleate 10 mg Tablet
10 mg PO TIDPRN PRN (Reason: headache)
potassium 99 mg Tablet
99 mg PO DAILY
amitriptyline 10 mg Tablet
10 mg PO DAILY
albuterol sulfate 90 mcg/actuation Hfa Aerosol Inhaler
2 puff INHALATION R Q4HPRN PRN (Reason: sob)
magnesium oxide 200 mg magnesium Tablet
100 mg PO SUMOTUTHSA
magnesium oxide 200 mg magnesium Tablet
200 mg PO WEFR
Interventions
Interventions:
*Risk Screen - Suicide Last Done: 08/13/24 03:01
*General Assessment Last Done: 08/13/24 03:01
*Neglect/Abuse Screening Last Done: 08/13/24 03:01
*ED COVID-19 Vaccine History Last Done: 08/13/24 03:01
ED- Cardiac Assessment Last Done: 08/13/24 03:10
ED- Pulmonary Assessment Last Done: 08/13/24 03:10
Discharge Date and Time
Print Language: FRISIAN
[2024-08-13] MEDS: DECADRON 10 MG IV (04:24)
[2024-08-13] MEDS: ZOSYN 100 IV (04:24)
[2024-08-13] MEDS: MORPHINE SULFATE 4 MG IV (04:30)
[2024-08-13] MEDS: LEVAQUIN 150 IV (05:11)
--- NOTE | 2024-08-13 05:28 | HPS.HSE ---
Family Physician
-
Family Physician: MAY Ortiz
Chief Complaint
-
Pain
History of Present Illness
Patient is a 74y M with PMH significant for metastatic melanoma currently on immunotherapy, hypothyroidism and COPD who presents to ED complaining of diffuse pain. Patient is followed at [facility] for metastatic melanoma with
pulmonary involvement. he was previously on immunotherapy - but this was discontinued secondary to severe side effects including myalgias, severe peripheral neuropathy, etc. Patient reports that he was restarted on immunotherapy in April of
this year. He had his 4th treatment this past Wednesday. Patient states that he has again noted worsening neuropathic pain (prior symptoms never resolved) as well as diffuse / symmetric joint pains, eye pain and chest / abdominal pain.
His symptoms were quite severe this evening and he was unable to sleep and presented to the ED for further evaluation and treatment.
He reports shaking chills early this AM prior to arrival. He denies any cough or significant dyspnea. He has RUQ abdominal discomfort and L lower chest discomfort. He reports mild nausea with no emesis. No urinary symptoms.
Patient has chronic complaints of headaches and diarrhea.
He denies any notable change in the frequency or severity of his headaches.
He states that he has not had a BM in the past 2 days at all - which he attributes to decreased / poor appetite in that time span.
Medical History
Past Medical History
Past Medical History: Reports Other
Additional Past Medical History:
Metastatic Melanoma with Pulmonary Involvement
COPD
Severe Mitral Regurgitation
Hypothyroidism
Adrenal Insufficiency
Severe Peripheral Neuropathy
Chronic Headaches / Migraines
Chronic / Functional Diarrhea
Past Surgical History: Reports Other
Additional Past Surgical History:
Melanoma Excision
Hernia Repair x 2
Social History
Tobacco: Former Smoker (Quit smoking 1 1/2 years ago. > 50 pack years total use.)
Alcohol: Former
Drug: None
Family History
Family History: Not pertinent
Allergies / Home Medications
Allergies reflects when Allergies were last updated in [facility].
Home Medications with original date entered in [facility]
Allergy/Medication List:
Allergies
Allergy/AdvReac Type Severity Reaction Status Date / Time
No Known Allergies Allergy Verified 03/08/24 02:26
Home Medications
hydrocortisone 10 mg tablet 10 mg PO DAILY@1400 Anti-Inflammatory 11/20/23
hydrocortisone 10 mg tablet 20 mg PO DAILY Anti-Inflammatory 11/20/23
pantoprazole 40 mg tablet,delayed release (Protonix) 40 mg PO DAILY Gastrointestinal Issue 11/20/23
umeclidinium 62.5 mcg-vilanterol 25 mcg/actuation powdr for inhalation (Anoro Ellipta) 1 inh inhalation R DAILY Lung/Breathing Issues 11/20/23
thiamine HCl (vitamin B1) 100 mg tablet 100 mg PO DAILY Supplement 03/04/24
acetaminophen 500 mg tablet (Tylenol Extra Strength) 1,000 mg PO Q6HPRN PRN mild pain/headache 03/08/24
cholecalciferol (vitamin D3) 25 mcg (1,000 unit) tablet (Vitamin D3) 25 mcg PO DAILY Supplement 03/08/24
fluticasone furoate 100 mcg/actuation blister powder for inhalation (Arnuity Ellipta) 1 inh inhalation R DAILY Lung/Breathing Issues 03/08/24
zinc sulfate 50 mg zinc (220 mg) tablet 50 mg PO DAILY Supplement 03/08/24
furosemide 40 mg tablet (Lasix) 40 mg PO DAILY #30 tabs 03/10/24
gabapentin 300 mg capsule 600 mg (2 x 300 mg) PO BID #120 caps 04/30/24
albuterol sulfate 90 mcg/actuation aerosol inhaler 2 puff inhalation R Q4HPRN PRN sob 08/10/24
amitriptyline 10 mg tablet 20 mg PO DAILY 08/10/24
amlodipine 2.5 mg tablet 2.5 mg PO HS 08/10/24
atorvastatin 40 mg tablet 40 mg PO DAILY 08/10/24
cyanocobalamin (vitamin B-12) 1,000 mcg tablet 1,000 mcg PO DAILY 08/10/24
magnesium oxide 100 mg PO SUMOTUTHSA 08/10/24
magnesium oxide 200 mg PO WEFR 08/10/24
potassium 99 mg tablet 99 mg PO DAILY 08/10/24
prochlorperazine maleate 10 mg tablet 10 mg PO TIDPRN PRN headache 08/10/24
levothyroxine 137 mcg tablet 137 mcg PO DAILY 08/13/24
Review of Systems
-
A 12 point ROS was completed and negative except as noted: Yes
Constitutional: Reports Fatigue and Chills; Denies Fever
EENT: Reports Other (Eye pain); Denies Sore Throat
Respiratory: Denies Cough or Trouble Breathing
Cardiac: Reports Chest Pain; Denies Palpitations or Syncope
Abdomen/GI: Reports Abdominal Pain, Nausea and Anorexia; Denies Vomiting, Diarrhea or Constipated
: Denies Dysuria or Frequency
Musculoskeletal: Reports Joint Pain and Muscle Pain; Denies Edema
Neurological: Reports Headache; Denies Dizzy
Psych: Denies Depression or Anxiety
Physical Exam
Vital Signs
Vital Signs
Temp Pulse Resp BP Pulse Ox
100.1 F 113 20 125/104 93
08/13/24 05:17 08/13/24 05:00 08/13/24 05:00 08/13/24 05:00 08/13/24 04:45
Physical Exam
General: Other (74y M in no acute distress.)
HEENT: Other (Dry MM. Neck supple. Bilateral injected / erythematous / inflamed sclera.)
Respiratory: Other (Few rales at the R base. Otherwise clear.)
Cardiac: S1/S2, Regular Rhythm and Murmur (II/ GERA)
GI: Soft and Other (Softly distended. Pos LLQ tenderness without rebound / guarding. Pos BS)
Musculoskeletal: No Clubbing, No Cyanosis and No Edema
Neuro: AO x 3
Laboratory Results
-
12/15/24 03:11
08/13/24 03:11
Laboratory Results
Lactic Acid 2.2 mmol/L (0.7-2.0) H 08/13/24 03:11
Total Bilirubin 1.1 mg/dl (0.2-1.3) 08/13/24 03:11
AST 51 U/L (17-59) 08/13/24 03:11
ALT 40 U/L (0-50) 08/13/24 03:11
Alkaline Phosphatase 383 U/L (38-126) H 08/13/24 03:11
Troponin I < 0.012 ng/ml 08/13/24 03:11
Impression/Plan
-
A/P: Patient is a 74y M with PMH significant for metastatic melanom on immunotherapy who presents to ED complaining primarily of increased neuropathic, muscle and joint pains over the past few days.
Sepsis / SIRS
- Admit for further evaluation and treatment.
- Patient presents with fever, tachycardia, tachypnea and leukocytosis - source of infection is unclear at present.
- CT Chest done in the ED with no PE. Vision read reports patch opacities concerning for pneumonia; however, I do not appreciate such changes.
- Some linear scarring at the R base. No recent cough or worsened dyspnea.
- Patient complains of abdominal discomfort and has LLQ tenderness on exam. Will check CT A/P for further evaluation.
- IV abx with Zosyn for now pending further data.
- IVF support.
- COVID and Influenza negative in the ED.
- Follow-up culture data.
- Follow for any new / focal symptoms.
- Follow fever curve.
- Possible that this is non-infectious process related to underlying malignancy +/- effects of immunotherapy.
Metastatic Melanoma on Immunotherapy
Severe Peripheral Neuropathy
Bilateral Scleritis
- Followed at [facility]. Most recent immunotherapy was Wednesday - session #4 since restarting.
- Hold further immunotherapy for now.
- Send to [facility] for records - patient cannot recall name of current treatment agent.
- Increased current hydrocortisone dose given increased pain, scleritis, etc.
- Consider Ophtho evaluation if no improvement.
- Continue current gabapentin / supportive measures.
- Check CPK for evidence of recurrent myositis.
Hypothyroidism
Adrenal Insufficiency
- T4 dose was increased earlier this week based on outpatient labs.
- Continue 137mcg daily dose for now with plan for repeat TFTs in 4-6 weeks.
- Increased steroid dose acutely as noted above - taper back to usual outpatient dose when appropriate.
COPD without Acute Exacerbation
- Stable. No recent cough, dyspnea, etc.
- Continue current inhaler regimen. DuoNebs PRN.
Chronic HFpEF
Severe Mitral Regurgitation
- Stable. Patient does not appear volume overloaded.
- He states that he has resumed Lasix since last admission - though he is not sure when.
- Hold diuretic for now.
- Follow daily weights, I/Os, etc.
Chronic / Functional Diarrhea
- History of alternating constipation / diarrhea per patient.
- Sounds as if he has taken significant med regimens to correct each issue.
- Try to remain off of any sort of bowel regimen for now - one way or the other.
- Monitor stools.
- CT A/P as noted above.
Chronic Headaches
- Stable. Continue amitriptyline.
- Promethazine PRN.
DVT Prophylaxis: Lovenox
Code Status: Full
[2024-08-13] MEDS: LR 1000 IV (07:16)
--- NOTE | 2024-08-13 07:19 | PTCARENOTE ---
Patient received in room 3360 via stretcher from ED RN. The patient transferred himself from the stretcher to ICU bed. AAOx3 and able to make his needs known. complains of 8/10 pain to his b.l abdomen, headache, and back. The patient also complained
of eye pain that just started about a week ago, causing vision difficulty at this time. Sinus tach on the monitor with HR 101. SpO2 at 96% on 2L o2/nc. Diminished breath sounds. Crackles to bilateral 1/2 up and bases. dyspnea on exertion . RR 18.
Abdomen is tender to palpation. Audible bowel sounds. Abd is round and obese. Patient cleansed with CHG wipes. Orientation to unit completed. Handoff report to incoming RN.
[2024-08-13] MEDS: OMNIPAQUE 50 ML PO (07:36)
[2024-08-13] MEDS: LIPITOR 40 MG PO (07:37)
[2024-08-13] MEDS: PROTONIX 40 MG PO (07:37)
[2024-08-13] MEDS: NEURONTIN 600 MG PO ×2 (07:37→19:45)
--- NOTE | 2024-08-13 07:40 | PTCARENOTE ---
Assumed care of pt at 0715 following shift report. Pt awake and talkative. Reports generalized abdominal discomfort, Lt shoulder discomfort, and altered vision w/ notable scleral erythema/inflammation- no drainage from eyes. Pt states change in
vision happened 'about a week ago' and reports 'redness is new'. Physical assessment completed as documented. Ordered AM meds administered. Pharmacy called re: Vanco dose ordered in ER. Waiting on order clarification from Dr Martin. Pt for CT
Abd/pelvix this AM. Omnipaque provided and pt instructed in timed administration- pt verbalized understanding. Call ha w/in pt reach and pt instructed to call and wait for assistance prior to getting OOB.
[2024-08-13] MEDS: SYNTHROID 137 MCG PO (07:56)
--- NOTE | 2024-08-13 08:20 | PTCARENOTE ---
Dr Martin notified via TT of bilateral eye redness/scleral inflammation, Vanco order clarified- d/c'ed.
[2024-08-13 08:33] LABS: Creatine Phosphokinase 106 U/L (55-170)
[2024-08-13 08:34] LABS: Lactic Acid 1.7 mmol/L (0.7-2.0)
[2024-08-13] MEDS: SPIRIVA RESPIMAT 2.5 MCG 2 PUFF INH (08:54)
[2024-08-13] MEDS: STRIVERDI RESPIMAT 2 PUFF INH (08:54)
[2024-08-13] MEDS: FLOVENT 44 MCG INHALER 2 PUFF INH ×2 (08:54→19:11)
--- NOTE | 2024-08-13 09:25 | PTCARENOTE ---
Dr Martin at bedside evaluating pt
--- NOTE | 2024-08-13 09:35 | CON.ONC ---
Impression
Impression
- SIRS
- metastatic melanoma
- ICI toxicities with myalgias, neuropathies
- chronic steroid use
Plan
Plan
- presenting with worsening joint/muscle pain which has been issue over past year and, per pt, thought to be ICI toxicity.
- with fever and new elevation in WBC however agree with infectious work-up, empirical abx initiated however now held. Imaging with possible RUL PNA, enteritis. NO respiratory or GI symptoms to suggest active infection except for mild lower
abdominal pain.
- agree with increasing his home hydrocortisone dose in setting of possible acute infection/inflammation and suspected secondary adrenal insufficiency. Fluticasone added
- will try to get [facility] records to clarify tx course.
Patient History
History of Present Illness
Shreyas is a 74y M with PMH of metastatic melanoma w/ lung metastases currently on immunotherapy at [facility], hypothyroidism and COPD who presented to ED complaining of worsening diffuse pain.
Pt follows with Dr. Baptiste, Gordy yost at [facility]. He was initially diagnosed with locally advanced melanoma in 2021 and underwent resection with axillary LN dissection in Mar 2022. He developed recurrence with 2 left lung lesions per pt report
in March 2023. he was started on immunotherapy (cannot recall name however opualag sounds familiar)- but this was held secondary to severe side effects including myositis, severe peripheral neuropathy from Aug 2023 to apr. He states he had
multiple prolonged admissions for these symptoms (however admission note in February comments [facility] admit for ETOH w/d). He was on high dose prednisone with wean however states he did not tolerate and was switched to hydrocortisone 20 mg in am, 10 mg
in pm by his merchandiser seasonal. He was restarted on immunotherapy in Apr and received 4th treatment 08/09 (he believes same drug as before). He has again noted worsening neuropathic pain (prior symptoms never resolved) as well as diffuse /
symmetric joint pains, eye pain and chest / abdominal pain. On presentation pt was febrile to 101.8, HR > 100 bpm. Labs showed elevated WBC at 12.1 w/ increased neutrophils, monocytes, lactate 2.2 that has normalized. COVID and flu negative. BCx
pending. CT chest showed scattered groundglass opacities in RUL suggestive for PNA. CT A/P w/ new mild stranding and prominent LNs in LUQ along the distal duodenum/jejunum possible representing enteritis or panniculitis. He has noted some discomfort
lower abdomen recently. Denies RIVER, change in vision. Eyes with injected sclera which he states he was not aware of until this am. Denies blurred vision or pain.
Patient Medication
�Medication �Instructions �Recorded �Confirmed �Last Taken �Type
hydrocortisone 10 mg tablet 10 mg PO DAILY@1400 11/20/23 08/13/24 08/09/24 History
Anti-Inflammatory
hydrocortisone 10 mg tablet 20 mg PO DAILY Anti-Inflammatory 11/20/23 08/13/24 08/10/24 History
pantoprazole 40 mg tablet,delayed 40 mg PO DAILY Gastrointestinal 11/20/23 08/13/24 08/10/24 History
release (Protonix) Issue
umeclidinium 62.5 mcg-vilanterol 1 inh inhalation R DAILY 11/20/23 08/13/24 08/10/24 History
25 mcg/actuation powdr for Lung/Breathing Issues
inhalation (Anoro Ellipta)
thiamine HCl (vitamin B1) 100 mg 100 mg PO DAILY Supplement 03/04/24 08/13/24 08/10/24 History
tablet
acetaminophen 500 mg tablet 1,000 mg PO Q6HPRN PRN mild 03/08/24 08/13/24 03/07/24 History
(Tylenol Extra Strength) pain/headache
cholecalciferol (vitamin D3) 25 25 mcg PO DAILY Supplement 03/08/24 08/13/24 08/10/24 History
mcg (1,000 unit) tablet (Vitamin
D3)
fluticasone furoate 100 1 inh inhalation R DAILY 03/08/24 08/13/24 08/10/24 History
mcg/actuation blister powder for Lung/Breathing Issues
inhalation (Arnuity Ellipta)
zinc sulfate 50 mg zinc (220 mg) 50 mg PO DAILY Supplement 03/08/24 08/13/24 08/10/24 History
tablet
furosemide 40 mg tablet (Lasix) 40 mg PO DAILY #30 tabs 03/10/24 08/13/24 08/10/24 Rx
gabapentin 300 mg capsule 600 mg (2 x 300 mg) PO BID #120 04/30/24 08/13/24 08/10/24 Rx
caps
albuterol sulfate 90 mcg/actuation 2 puff inhalation R Q4HPRN PRN sob 08/10/24 08/13/24 Unknown History
aerosol inhaler
amitriptyline 10 mg tablet 20 mg PO DAILY 08/10/24 08/13/24 08/10/24 History
amlodipine 2.5 mg tablet 2.5 mg PO HS 08/10/24 08/13/24 08/09/24 History
atorvastatin 40 mg tablet 40 mg PO DAILY 08/10/24 08/13/24 08/10/24 History
cyanocobalamin (vitamin B-12) 1,000 mcg PO DAILY 08/10/24 08/13/24 08/10/24 History
1,000 mcg tablet
magnesium oxide 100 mg PO SUMOTUTHSA 08/10/24 08/13/24 08/10/24 History
magnesium oxide 200 mg PO WEFR 08/10/24 08/13/24 08/09/24 History
potassium 99 mg tablet 99 mg PO DAILY 08/10/24 08/13/24 08/10/24 History
prochlorperazine maleate 10 mg 10 mg PO TIDPRN PRN headache 08/10/24 08/13/24 Unknown History
tablet
levothyroxine 137 mcg tablet 137 mcg PO DAILY 08/13/24 08/13/24 Unknown History
Active Medications
Generic Name Dose Route Start Last Admin
Trade Name Freq PRN Reason Stop Dose Admin
Acetaminophen 650 mg 08/13/24 06:45
Acetaminophen 325 Mg Tablet PO 09/10/24 06:44
Q4HPRN PRN
Mild Pain / Temp > 101
Albuterol/Ipratropium 3 ml 08/13/24 06:45
Ipratropium 0.5/Albuterol 3 Mg (3 Ml Ampul) INH
R Q4HPRN PRN
SOB
Protocol
Amitriptyline HCl 20 mg 08/13/24 22:00
Amitriptyline 10 Mg Tablet PO 09/10/24 21:59
HS GERDA
Atorvastatin Calcium 40 mg 08/13/24 08:00 08/13/24 07:37
Atorvastatin (Lipitor) 40 Mg Tablet PO 09/10/24 07:59 40 mg
DAILY GERDA Administration
Enoxaparin Sodium 40 mg 08/13/24 18:00
Enoxaparin Sodium 40 Mg/0.4 Ml Syringe SC 09/10/24 17:59
QPM GERDA
Fluticasone Propionate 2 puff 08/13/24 08:00 08/13/24 08:54
Fluticasone 44 Mcg Inhaler INH 09/10/24 07:59 2 puff
R BID GREDA Administration
Gabapentin 600 mg 08/13/24 08:00 08/13/24 07:37
Gabapentin 300 Mg Capsule PO 09/10/24 07:59 600 mg
BID GERDA Administration
Hydrocortisone 40 mg 08/13/24 08:00
Hydrocortisone 20 Mg Tablet PO 09/10/24 07:59
DAILY GERDA
Hydrocortisone 20 mg 08/13/24 14:00
Hydrocortisone 20 Mg Tablet PO 09/10/24 13:59
DAILY@1400 GERDA
Piperacillin Sod/Tazobactam Sod 3.375 gram in 50 mls @ 100 mls/hr 08/13/24 10:00
Zosyn IV
Q6H GERDA
Lactated Ringer's 1,000 mls @ 100 mls/hr 08/13/24 06:45 08/13/24 07:16
Lr IV 1,000 mls
.Q10H GERDA Administration
Levothyroxine Sodium 137 mcg 08/13/24 08:00 08/13/24 07:56
Levothyroxine 137 Mcg Tablet PO 09/10/24 07:59 137 mcg
DAILY@0600 GERDA Administration
Olodaterol 2 puff 08/13/24 08:00 08/13/24 08:54
Olodaterol (Striverdi Respimat) 2.5 Mcg Inhaler INH 09/10/24 07:59 2 puff
R DAILY GERDA Administration
Pantoprazole Sodium 40 mg 08/13/24 08:00 08/13/24 07:37
Pantoprazole 40 Mg Delayed Release Tablet PO 09/10/24 07:59 40 mg
DAILY GERDA Administration
Prochlorperazine Edisylate 5 mg 08/13/24 06:45
Prochlorperazine 10 Mg/2 Ml Vial IV 09/10/24 06:44
Q6HPRN PRN
Nausea / Headache
Sodium Chloride 0 flush 08/13/24 07:00
Sodium Chloride 0.9% (Flush) Syringe IV 09/10/24 06:59
PER PROTOCOL GERDA
Tiotropium [place] 2 puff 08/13/24 08:00 08/13/24 08:54
Tiotropium (Spiriva Respimat) 2.5 Mcg Inhaler INH 09/10/24 07:59 2 puff
R DAILY GERDA Administration
Review of Systems
-
History Source: Patient
Constitutional: Reports Fatigue; Denies Fever or Weight Loss
EENT: Reports Dry Eyes; Denies Blurry Vision or Eye Pain
Respiratory: Denies Cough or Trouble Breathing
Cardiac: Denies Chest Pain
GI: Reports Abdominal Pain; Denies Nausea or Diarrhea
Musculoskeletal: Reports Joint Pain, Muscle Pain, Arthralgias and Myalgias
Skin: Denies Itching or Rash
Neuro: Denies Headache, Numbness or Ataxia
Hematologic/Lymphatic: Denies Bleeding
Physical Exam
-
General: Well Developed, Well Nourished and No Apparent Distress
HEENT: Other (andi-orbital swelling with injected sclera); Negative Jaundice
Cardiology: Normal Sinus Rhythm
Pulmonary: Clear; Negative Rhonchi
GI: Soft; Negative Distended
Musculoskeletal: No Edema
Extremities: Negative Edema
Neurology: Non Focal and No Lateralizing Symptoms; Negative No Word Finding Difficulty
Hematologic / Lymphatic: No Lymphadenopathy
Labs
Lab Results
WBC 12.1 10^3/uL (4.8-10.8) H 08/13/24 03:11
RBC 4.54 10^6/uL (4.70-6.10) L 08/13/24 03:11
Hgb 13.5 g/dL (13.0-18.0) 08/13/24 03:11
Hct 42.4 % (39.0-52.0) 08/13/24 03:11
MCV 93.4 fL (80.0-94.0) 08/13/24 03:11
MCH 29.7 pg (27.0-31.0) 08/13/24 03:11
MCHC 31.8 g/dL (33.0-37.0) L 08/13/24 03:11
RDW 14.2 % (11.5-14.5) 08/13/24 03:11
Plt Count 382 10^3/uL (130-400) D 08/13/24 03:11
MPV 9.2 fL (7.4-10.4) 08/13/24 03:11
Abs Immat Gran (auto) 0.2 10^3/uL (0-0.05) H 08/13/24 03:11
Absolute Neuts (auto) 7.9 10^3/uL (1.4-6.5) H 08/13/24 03:11
Absolute Lymphs (auto) 2.6 10^3/uL (1.2-3.4) 08/13/24 03:11
Absolute Monos (auto) 1.1 10^3/uL (0.1-0.6) H 08/13/24 03:11
Absolute Eos (auto) 0.2 10^3/uL (0-0.7) 08/13/24 03:11
Absolute Basos (auto) 0.1 10^3/uL (0-0.2) 08/13/24 03:11
Immature Gran % 1.6 % (0-0.5) H 08/13/24 03:11
Neutrophils % 65.1 % (42.2-75.2) 08/13/24 03:11
Lymphocytes % 21.5 % (20.5-51.1) 08/13/24 03:11
Monocytes % 9.4 % (1.7-9.3) H 08/13/24 03:11
Eosinophils % 1.8 % (0-6) 08/13/24 03:11
Basophils % 0.6 % (0-2) 08/13/24 03:11
Creatinine 1.1 mg/dL (0.7-1.3) 08/13/24 03:11
Vital Signs
Vital Signs
Temp Pulse Resp BP Pulse Ox
98.4 F 96 19 104/58 96
08/13/24 06:28 08/13/24 09:02 08/13/24 09:02 08/13/24 05:39 08/13/24 09:02
--- NOTE | 2024-08-13 09:45 | CON.ID ---
Consultation
-
Date/Time Consultation Requested: August 13, 2024 0824
Date/Time Consultation Performed: August 13, 2024 0971
Requesting Provider: Dr. Vinny Martin
Performing Provider: Dr. Valencia Victoria
Reason for Consultation: SIRS
Chief Complaint / Past History
Chief Complaint
Worsening neuropathy pain and other complaints.
History of Present Illness
History obtained from the patient as well as review of outside medical records. 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
to immunotherapy Opdualag which was held. On April 05, 2024, he had a challenge of the Opdualag which he tolerated poorly. He was placed on vedolizumab, then resumed Opdualag which he received on June 14, July 12, and August 11. Patient
noted burning pain on his right arm after the first cycle of Opdualag. After the third dose this few days ago, he then developed burning severe pain all over his body and joints. He had subjective fever chills and sweats at home and therefore came
to the ER early this morning. Also complaining of lower abdominal pain. He has chronic diarrhea unchanged. Appetite is poor. He complains of discomfort behind his eyelids. No mouth sores. No cough or shortness of breath. Positive chest
discomfort. No nausea or vomiting. No urinary symptoms. No ill contacts. He lives by himself. In the ER temperature one 1.8. White count 12.1 with 94% monocytes. Chest CT no PE, there is nonspecific right upper lobe groundglass opacities.
Chest x-ray no acute cardiopulmonary process. CT of the abdomen new mild stranding and prominent mesenteric lymph nodes within the left upper quadrant along the distal duodenum/proximal jejunum.
Past History
Additional Past Medical History:
Melanoma with metastasis to lungs resumed monthly Opdualag 06/14/24
COPD
Hypothyroidism
HFpEF
GERD
Adrenal insufficiency on steroid
Peripheral neuropathy
Chronic diarrhea
Chronic headaches/migraine
Melanoma excision
Hernia repair x 2
Additional Past Surgical History:
(hernia repair )
Allergy History:
No Known Allergies Allergy (Verified 03/08/24 02:26)
Medications Reviewed: Yes
Current Antibiotics:
Zosyn
Hydrocortisone 60mg po qd
Social History
Tobacco: Former Smoker (Quit 2021)
Alcohol: Former
Drug: None
Family History
Family History: Not Pertinent
Review of Systems
Review of Systems
General: Fever, Chills and Change in Appetite
HEENT: Negative Stiff Neck, Sinus Problems, Headache or Pharyngitis
Cardiovascular: Chest Pain; Negative Edema
Respiratory: Negative Dyspnea or Cough
Gasteroenterology: Negative Nausea or Vomiting
Genital / Urological: Negative Dysuria or Flank Pain
Endocrine: Weakness
Musculoskeletal: Arthralgias (diffuse)
Skin / Hair / Nails: Negative Rash
Neurological: Negative Dizziness
All systems: All other systems were reviewed and were negative
Vital Signs
Temp Pulse Resp BP Pulse Ox
98.4 F 96 19 104/58 96
08/13/24 06:28 08/13/24 09:02 08/13/24 09:02 08/13/24 05:39 08/13/24 09:02
Selected Entries
08/13/24
03:12
Temp 101.8 F H
Physical Exam
Physical Exam
Constitutional: No Acute Distress
Eyes: Sclera Anicteric and Other (+ conjunctional hemorrhage bilateral lower eyes)
Pharynx: Benign
Cardiovascular: Regular Rate and S1/S2
Pulmonary: Clear
Gastrointestinal: Soft, Non Tender, Non Distended and Normal Bowel Sounds
Genito-Urinary: Negative CVA Tenderness
Extremities: Negative Edema
Musculoskeletal: Negative Joint Swelling, Joint Effusion or Spinal Tenderness
Neurological: AO x 3
Lab / Diagnostic Study Results
08/13/24 03:11
08/13/24 03:11
Abs Immat Gran (auto) 0.2 10^3/uL (0-0.05) H 08/13/24 03:11
Absolute Neuts (auto) 7.9 10^3/uL (1.4-6.5) H 08/13/24 03:11
Absolute Lymphs (auto) 2.6 10^3/uL (1.2-3.4) 08/13/24 03:11
Absolute Monos (auto) 1.1 10^3/uL (0.1-0.6) H 08/13/24 03:11
Absolute Basos (auto) 0.1 10^3/uL (0-0.2) 08/13/24 03:11
Immature Gran % 1.6 % (0-0.5) H 08/13/24 03:11
Neutrophils % 65.1 % (42.2-75.2) 08/13/24 03:11
Lymphocytes % 21.5 % (20.5-51.1) 08/13/24 03:11
Monocytes % 9.4 % (1.7-9.3) H 08/13/24 03:11
Eosinophils % 1.8 % (0-6) 08/13/24 03:11
Basophils % 0.6 % (0-2) 08/13/24 03:11
Lactic Acid 1.7 mmol/L (0.7-2.0) 08/13/24 08:10
Microbiology Results
Micro:
08/13/24 03:11 Blood Culture - Pending
Blood/Venous
08/13/24 03:59 Blood Culture - Pending
Blood/Venous
08/13/24 03:11 Influenza Types A & B (ALESSANDRA) - Final
Nasal Swab Negative for Influenza A & B, NAAT
Negative results must be combined with clinical observations
and patient history.
Nucleic Acid Amplification test (NAAT)performed on the
[employer] platform.
08/13/[address]: No evidence of pulmonary embolism. Scattered groundglass opacities which in the right upper lobe which likely represent pneumonia. Trace pericardial effusion.
08/10/24 CXR: No convincing acute cardiopulmonary process. Cannot rule out component of underlying chronic interstitial lung disease.
08/13/24 CT A/P: There is new mild stranding and prominent mesenteric lymph nodes within the left upper quadrant, along the distal duodenum/proximal jejunum which may represent enteritis, however mesenteric panniculitis could appear similar.
Assessment / Plan
# Immune-mediated reactions to Opdualag
Melanoma with lung mets, resumed monthly Opdualag on .
# Fever due to above
# Leukocytosis/monocytosis
- No objection to high dose steroid.
-DC Zosyn and observe.
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
Melanoma with metastasis to lungs, resumed monthly Opdualag 06/14/24
COPD
Hypothyroidism
HFpEF
GERD
Adrenal insufficiency on steroid
Peripheral neuropathy
Chronic diarrhea
Chronic headaches/migraine
Melanoma excision
Hernia repair x 2
Care Review
Plan reviewed with: Physician (Dr. Martin)
--- NOTE | 2024-08-13 09:56 | PTCARENOTE ---
Pt to radiology via stretcher for ordered CT Abd/pelvis. Transferred w/ assistance from bed to stretcher. No new complaints or changes noted prior to leaving room.
--- NOTE | 2024-08-13 10:07 | W.PN.UPDATE ---
Update Note
Progress Note Update
Admitted this morning by Dr. Woodruff OF R increasing neuropathy, muscle and joint pains over the last few days.
He met the criteria for sepsis and concern for sepsis so brought in for further evaluation.
Patient has metastatic melanoma and was on immunotherapy last year and had some immunotherapy related adverse effects needing long-term steroids and prolonged hospital stay.
Since April this year he went back on immunotherapy for his melanoma which is metastatic and they found a lesion in the lung apparently. He had his fourth dose of immunotherapy on Wednesday this week and then he started of noticing increasing
pain of his neuropathy. He also started to have increased muscle pains all across his body and significant joint pains. He was getting difficult to move because of his musculoskeletal symptoms. He also thought he was having fevers at home and
chills.
Denies any cough or shortness of breath. No nausea vomiting or diarrhea currently.
Fever spike today noted. Tachycardic. Sinus rhythm. Blood pressure okay this morning.
Chest sounds clear
Abdomen soft
Chest CT raise the concern for scattered groundglass opacities right upper lobe. COVID and flu negative. No symptoms.
Continue with empirical antibiotics for possible pneumonia with Zosyn.
Consult ID.
Has presenting symptoms are atypical for pneumonia. With a prior history of immune related adverse effects and now back on immune therapy and onset of the symptoms clinical concern if these are immune related adverse effects including the
groundglass opacities in the right upper lobe.
Consult oncology.
He brought to my attention about bloodshot eyes and both eyes within the last 24 hours.
In the last couple of days he has seen issues with vision with both eyes.
He does not remember having any eye complication from immunotherapy in the past. He had a cataract surgery done and was having a good distance vision but wearing glasses for near vision. Posterior cataract he had many floaters in the left eye. He
was not able to see an implementation technician since his cataract surgery in August 2023.
The floaters remain in the left eye. No floaters in the right eye. His vision is blurry in both eyes. Eyes a bit sensitive to light. He also has pain in both eyes.
External eye exam-he has extensive areas of bilateral redness of eye involving bulbar and palbebral regions. Also intense blood vessel vasodilation and some edema present . But no watery eyes or discharge.
Clincal concern for episcleritis and may be uveitis with vision issues , pain in eyes.
Will consult Opthalmology and consider steroids topical.
HD stable
SR
Will transfer to Tele.
[2024-08-13] MEDS: HYDROCORTONE/CORTEF 40 MG PO (10:43)
[2024-08-13] MEDS: ZOSYN 50 IV (10:43)
--- NOTE | 2024-08-13 12:00 | PTCARENOTE ---
Dr Martin notified CT Abd/pelvis resulted. Order received to advance diet- pt made aware and provided phone and menu to order lunch. IVF stopped per order. Pt continues to rest quietly in bed, no changes noted or new complaints received.
--- NOTE | 2024-08-13 13:15 | PTCARENOTE ---
Pt sitting OOB in chair following visit from PT/OT. No new complaints or changes noted. Eating lunch. Call dilcia w/in pt reach.
[2024-08-13] MEDS: REFRESH EYE DROPS (PF) 1 DROPS BOTH EYES ×6 (13:40→21:20)
[2024-08-13] MEDS: HYDROCORTONE/CORTEF 20 MG PO (13:41)
[2024-08-13] MEDS: LOVENOX 40 MG SC (19:11)
--- NOTE | 2024-08-13 20:00 | PTCARENOTE ---
Rec'd pt resting on chair, denies pain at present, cooperative, SR, bp stable, + pulses, RA, lungs decr in bases, sat 94, + bowel sounds, no bm, abd soft, hnv yet this shift
[2024-08-13] MEDS: ELAVIL 20 MG PO (21:25)
[2024-08-13] MEDS: MORPHINE SULFATE 2 MG IV (21:52)
--- NOTE | 2024-08-13 21:53 | PTCARENOTE ---
morphine 2mg iv given for headache, nech pain, abd pain & chest pain
[2024-08-13 21:54] LABS: Urine Albumin Trace (Neg - Trace); Urine Bilirubin Negative (Negative); Urine Character Clear (Clear); Urine Color Yellow; Urine Glucose Negative (Negative); Urine Ketone Negative (Negative); Urine Leukocyte Negative (Negative); Urine Nitrite Negative (Negative); Urine Occult Blood Negative (Negative); Urine Urobilinogen Negative (Neg - 1+)
[2024-08-14] VITALS (27 sets, daily range): BP systolic 96–138; BP diastolic 59–92; BMI 25.5; BMI 25.8
[2024-08-14] MEDS: REFRESH EYE DROPS (PF) 1 DROPS BOTH EYES ×11 (00:01→20:56)
[2024-08-14] MEDS: REFRESH EYE DROPS (PF) BOTH EYES (01:46)
[2024-08-14] MEDS: MORPHINE SULFATE 2 MG IV ×2 (03:13→14:35)
[2024-08-14] MEDS: SYNTHROID 137 MCG PO (03:14)
--- NOTE | 2024-08-14 03:15 | PTCARENOTE ---
morphine 2mg iv given for pain
[2024-08-14 03:37] LABS: Hematocrit 31.2 % (39.0-52.0); Hemoglobin 10.8 g/dL (13.0-18.0); Mean Corp Hgb Conc. 34.6 g/dL (33.0-37.0); Mean Corpuscular Hgb 30.3 pg (27.0-31.0); Mean Corpuscular Volume 87.6 fL (80.0-94.0); Mean Platelet Volume 9.2 fL (7.4-10.4); Platelet Count 335 10^3/uL (130-400); Red Blood Cell Count 3.56 10^6/uL (4.70-6.10); Red Cell Dist. Width 13.4 % (11.5-14.5); White Blood Cell Count 10.1 10^3/uL (4.8-10.8)
[2024-08-14 03:47] LABS: Erythrocyte Sed Rate 61 mm/hour (0-20)
[2024-08-14 04:09] LABS: ALT (SGPT) 35 U/L (0-50); AST (SGOT) 44 U/L (17-59); Albumin 3.3 g/dl (3.5-5.0); Alkaline Phosphatase 290 U/L (38-126); Blood Urea Nitrogen 27 mg/dl (9-20); Calcium 8.5 mg/dl (8.4-10.2); Carbon Dioxide 24 mmol/L (22-30); Chloride 100 mmol/L (98-107); Direct Bilirubin 0.3 mg/dl (0.0-0.4); Estimated Creatinine Clearance 60 ml/min; Glucose 143 mg/dl (70-99); Magnesium 1.8 mg/dl (1.6-2.3); Potassium 3.7 mmol/L (3.5-5.1); Sodium 134 mmol/L (135-145); Total Bilirubin 0.4 mg/dl (0.2-1.3); Total Protein 5.6 g/dl (6.3-8.2); eGFR > 60.00
--- NOTE | 2024-08-14 04:43 | PTCARENOTE ---
pt 'feels like he can't swallow'- requests speech therapy consult
[2024-08-14] MEDS: FLOVENT 44 MCG INHALER 2 PUFF INH ×2 (07:15→20:00)
[2024-08-14] MEDS: SPIRIVA RESPIMAT 2.5 MCG 2 PUFF INH (07:15)
[2024-08-14] MEDS: STRIVERDI RESPIMAT 2 PUFF INH (07:15)
[2024-08-14] MEDS: LIPITOR 40 MG PO (07:50)
[2024-08-14] MEDS: HYDROCORTONE/CORTEF 40 MG PO (07:50)
[2024-08-14] MEDS: NEURONTIN 600 MG PO ×2 (07:50→19:35)
[2024-08-14] MEDS: PROTONIX 40 MG PO (07:50)
--- NOTE | 2024-08-14 08:30 | PTCARENOTE ---
Received pt @ change of shift. AAOx3, anxious @ x's. B/L scleral redness/irritation present as reported per previous shift; eye drops admin per orders and MD team aware. SR on monitor. SpO2 94% on RA. +BS, abd soft/round. Cont b/b. Reports
loose stools. Tele pack applied and pt. ad jeremy in rm, understanding of limitations. OOB to chair for breakfast and call ha w in reach.
--- NOTE | 2024-08-14 11:33 | W.PN.ID1 ---
Date of Service
Date of Service: August 14, 2024
Today's Communication
Observe off abx.
Call if any ID issues.
Assessment / Plan
# Immune-mediated reactions to Opdualag
# Melanoma with lung mets, resumed monthly Opdualag on , last received 08/11.
# Fever resolved
# Leukocytosis resolved
-Blood cx's neg to date.
- CXR neg. CT chest nonspecific groundglass opacity RUL
-Observe off abx.
Call if any questions.
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
Melanoma with metastasis to lungs, resumed monthly Opdualag 06/14/24
COPD
Hypothyroidism
HFpEF
GERD
Adrenal insufficiency on hydrocortisone
Peripheral neuropathy
Chronic diarrhea
Chronic headaches/migraine
Melanoma excision
Hernia repair x 2
Chief Complaint
-: Other (pain)
Subjective / Review of Systems
Unable to sleep last night. Had difficulty catching his breathe, improved when he sat up.
Body/joint pains slightly better today.
Vital Signs / Physical Exam
Vital Signs
Vital Signs
Temp Pulse Resp BP Pulse Ox
98 F 90 16 121/80 94
08/14/24 07:30 08/14/24 08:00 08/14/24 08:00 08/14/24 06:00 08/14/24 08:54
Physical Exam
Constitutional: No Acute Distress and Comfortable
Eyes: Sclera Anicteric and Other (Bilateral conjunctival hemorrhage)
Cardiovascular: Regular Rate and S1/S2
Pulmonary: Clear
Gastrointestinal: Soft, Non Tender, Non Distended and Normal Bowel Sounds
Extremities: Negative Edema
Neurological: AO x 3
Objective Data
Lab Data
Lab Results
08/14/24 03:25
08/14/24 03:25
ESR 61 mm/hour (0-20) H 08/14/24 03:25
Estimated Creat Clear 60 ml/min 08/14/24 03:25
Lactic Acid 1.7 mmol/L (0.7-2.0) 08/13/24 08:10
Total Bilirubin 0.4 mg/dl (0.2-1.3) 08/14/24 03:25
AST 44 U/L (17-59) 08/14/24 03:25
ALT 35 U/L (0-50) 08/14/24 03:25
Alkaline Phosphatase 290 U/L (38-126) H 08/14/24 03:25
C-Reactive Protein Cancelled 08/13/24 13:00
Most recent labs reviewed.
Micro Results:
08/13/24 03:59 Blood Culture - Preliminary
Blood/Venous No Growth in 24 hours- Final report to follow
08/13/24 03:11 Blood Culture - Preliminary
Blood/Venous No Growth in 24 hours- Final report to follow
08/13/24 03:11 Influenza Types A & B (ALESSANDRA) - Final
Nasal Swab Negative for Influenza A & B, NAAT
Negative results must be combined with clinical observations
and patient history.
Nucleic Acid Amplification test (NAAT)performed on the
[employer] platform.
08/13/[address]: No evidence of pulmonary embolism. Scattered groundglass opacities which in the right upper lobe which likely represent pneumonia. Trace pericardial effusion.
08/10/24 CXR: No convincing acute cardiopulmonary process. Cannot rule out component of underlying chronic interstitial lung disease.
08/13/24 CT A/P: There is new mild stranding and prominent mesenteric lymph nodes within the left upper quadrant, along the distal duodenum/proximal jejunum which may represent enteritis, however mesenteric panniculitis could appear similar.
--- NOTE | 2024-08-14 14:17 | CM ---
Patient seen at bedside with physicians. Patient states that he would have a ride home at discharge and that he did not want VN services. Patient confirmed that Dr. Ma is his PCP and he [facility] [place] for pharmacy
needs. Patient has applied to [employer] for aides and stated that he had been approved but he was uncertain about what would be started. Patient also stated that he had been at [facility] in the past for 12 days but did not want to return there.
CM will continue to follow for discharge planning needs.
Plan; home with no VN watch for further follow up needs.
[2024-08-14] MEDS: HYDROCORTONE/CORTEF 20 MG PO (14:35)
--- NOTE | 2024-08-14 14:42 | W.PN.HOSP.TC ---
Addendum entered and electronically signed by Carolyn Blancas MD 08/14/24 16:39:
I saw and evaluated the patient independently. I reviewed the resident�s note and agree with findings and plan as documented Dr. Paul.
GENERAL: well developed, well nourished, male in no apparent distress--sitting cross legged on the bed
HEENT: NC/AT--sclera/conjunctiva red and swollen
HEART: regular rate and rhythm, +S1, +S2
LUNGS : clear to auscultation bilaterally
ABDOM: soft, nontender, nondistended, + bowel sounds
EXT: no cyanosis, clubbing, or edema
NEUROLOGIC: grossly intact
PSYCH: anxious
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
options moving forward
acute decreased vision with red painful eye--thoughts were episcleritis--await input from ophtho (Dr. Vega to see patient)--likely will need eyedrops....
adrenal insufficiency -- on higher dose hydrocortisone for stress dosing....back to outpt doses
metastatic melanoma to lung -- treatment decisions as above
HFpEF--no exacerbation--cont meds as able
chronic functional diarrhea--currently without issues
DVT proph
code status -- FULL CODE
Original Note:
Today's Communication/Plan
-
Consult ophthalmology
Discussed with hematology and oncology regarding their discharge plan for the patient
Assessment / Plan
Assessment / Plan
IMPRESSION
Patient is a 74-year-old male with past medical history of metastatic melanoma with pulmonary involvement, hypothyroid, adrenal insufficiency, severe peripheral neuropathy, chronic headaches, chronic functional diarrhea who presented to emergency
with diffuse body pains, right eye and decreased vision. He resumed his immunotherapy with Opdualag on June 14, 2024. In the past he had severe peripheral neuropathy with the same drug and he took 8 months off from the drug. He received his
first dose on June 14, second dose on July 12, and third dose on August 11, 2024 and he developed diffuse body aches and pains along with an elevated WBC count of 12.1 with 94% monocytes.
He reported fatigue and chills/eye pains/abdominal pain/chest pain/nausea and anorexia/joint pain/muscle aches/headache and red eyes
ASSESSMENT/PLAN
Immune mediated reactions to Opdualag
Patient received his third dose of Opdualag on August 11, 2024
Developed chills, fatigue, muscle aches, body aches, joint pains and red eyes
CT chest done 08/13/2024
IMPRESSION:
1. No evidence of pulmonary embolism.
2. Scattered groundglass opacities which in the right upper lobe which likely represent pneumonia.
3. Trace pericardial effusion.
4. Moderate coronary artery atherosclerotic calcifications.
CT abdomen/pelvis 08/13/2024
IMPRESSION:
There is new mild stranding and prominent mesenteric lymph nodes within the left upper quadrant, along the distal duodenum/proximal jejunum which may represent enteritis, however mesenteric panniculitis could appear similar.
Calcified gallstone within the gallbladder neck, unchanged from prior. There are no CT findings of acute cholecystitis.
Unchanged gastric diverticulum.
Colonic diverticulosis.
Patient follows up at [facility]
Currently on hydrocortisone 60 mg per oral daily
ID and oncology agreed and discontinued antibiotics
Leukocytosis resolved
Continue to follow-up with oncology regarding the plan for patient on discharge
Melanoma with lung mets
Metastatic melanoma w/ lung metastases currently on immunotherapy at [facility]
Previous adverse reaction to immunotherapy Opdualag which was held.
On April 05, 2024, he had a challenge of the Opdualag which he tolerated poorly.
He was placed on vedolizumab, then resumed Opdualag which he received on June 14, July 12, and August 11
Reported fatigue and chills/eye pains/abdominal pain/chest pain/nausea and anorexia/joint pain/muscle aches/headache and red eyes
Oncology following up with the patient
Plan to have the patient follow-up with his regular oncologist later in this week
Leukocytosis
Fever resolved
Leukocytosis resolved
-Blood cx's neg to date.
- CXR neg. CT chest nonspecific groundglass opacity RUL
-Observe off abx.
Heart failure with preserved ejection fraction
Stable at the moment
Acute red eye with pain
Patient had red eyes on admission
Does not remember any eye complication from immunotherapy in the past
Had a cataract surgery done, says that the surgery did not help him and he still sees a lot of floaters in the vision is blurry
He complains of photosensitivity and sensitivity to bright light
No discharge from the eye
Note: Called Dr. Reis regarding the patient and he would stop by after work hours to assess the patient
Oncology does not feel comfortable discharging the patient until evaluation of the right eye on inpatient basis
Chronic functional diarrhea-denies any issues at the moment
Chronic headaches-feels well with the pain medications
Anticipated Discharge: 24 - 48 hours
Subjective/Interval History
-
Date of Service: August 14, 2024
Patient complains of diffuse body aches and mylagias,back pain,abdominal pain and burning pain in shoulders especially the right one.
He complains of floaters in his eyes and decreased vision
Objective Data
-
Labs:
Laboratory Results
08/14/24
03:25
WBC 10.1
Hgb 10.8 L
Hct 31.2 L
Plt Count 335
Sodium 134 L
Potassium 3.7
Chloride 100
Carbon Dioxide 24
BUN 27 H
Creatinine 1.1
Glucose 143 H
Calcium 8.5
Total Bilirubin 0.4
AST 44
ALT 35
Alkaline Phosphatase 290 H
Vital Signs:
Vital Signs
Temp Pulse Resp BP Pulse Ox
97.5 F 90 16 121/80 94
08/14/24 11:05 08/14/24 08:00 08/14/24 08:00 08/14/24 06:00 08/14/24 08:54
I&O
08/13/24 08/14/24 08/15/24
06:59 06:59 06:59
Intake Total 2280 / 2280 240 / 240
Output Total 1600 / 1600 500 / 500
Balance 680 / 680 -260 / -260
Review of Systems
-
All other systems: Reviewed and negative
Physical Exam
-
General: Well Developed, Appears in Distress (due to diffuse body pains, mentions his decreased vision and red eyes) and Conversant
HEENT: Moist Mucous Membranes, Anicteric and Other (Eyes have red sclera, complains of swelling of eyes)
Respiratory: Clear to Auscultation and Other (No wheezes, ronchi or rales)
Cardiac: Regular Rhythm and S1/S2
GI: Soft, Nontender and Normal Bowel Sounds
Skin: Warm, Dry and Other (No suspected lesions)
Neuro: Awake, Oriented and No Motor Deficits
Psych: Anxious (regarding his pains,aches and vision impairement)
[2024-08-14] MEDS: LOVENOX 40 MG SC (17:57)
--- NOTE | 2024-08-14 19:37 | PTCARENOTE ---
rec'd pt sitting in bed, amb ad jeremy in room, SR, bp stable,+ PULSES, DENIES PAIN AT PRESENT, ra, Lungs clear, sat 96, + bowel soounds, no n/v, voids in bathroom without difficulty
--- NOTE | 2024-08-14 20:25 | PTCARENOTE ---
Report given to floor RN, transferred to Rm 316-2 via on tele monitor
--- NOTE | 2024-08-14 20:35 | PTCARENOTE ---
Addendum entered by Vignesh Chopra RN 08/14/24 22:06:
Pt arrived to unit via wheelchair was a transfer from ICU. Pt stood on scale and was able to walk to bed with a steady gait. Pt aware to use call ha appropriately. call ha within reach. urinal within reach.
Original Note:
Pt arrived to unit via wheelchair. Pt stood on scale and was able to walk to bed with a steady gait. Pt aware to use call ha appropriately. call ha within reach. urinal within reach.
[2024-08-14] MEDS: MELATONIN 5 MG PO ×2 (20:55)
[2024-08-14] MEDS: ELAVIL 20 MG PO (20:55)
--- NOTE | 2024-08-14 20:57 | W.PN.ONC2 ---
Today's Communication / Plan
-
Immune toxicities seem manageable except for the ocular toxicity.
Pt known to Dr. Reis.
Agree with stress dosing of steroid but his other toxicities do not appear to warrant anti-inflammatory steroid.
Pt not sure he wants to proceed with additional immunotherapy. He may want to see us in the office to discuss further as he is not currently driving and it difficult to get to [facility].
Consider PT/OT eval prior to d/c. Ideally he would see Ophtho susan.
Impression
Impression
- SIRS
- metastatic melanoma
- ICI toxicities with myalgias, neuropathies
- chronic steroid use
- ocular toxicity with pain and difficulty seeing
Plan
Plan
- presenting with worsening joint/muscle pain which has been issue over past year and, per pt, thought to be ICI toxicity.
- with fever and new elevation in WBC however agree with infectious work-up, empirical abx initiated however now held. Imaging with possible RUL PNA, enteritis. NO respiratory or GI symptoms to suggest active infection except for mild lower
abdominal pain.
- agree with increasing his home hydrocortisone dose in setting of possible acute infection/inflammation and suspected secondary adrenal insufficiency. Fluticasone added
- call placed to [facility], not yet returned
Subjective/Objective
Chief Complaint
Heme/Onc follow up of metastatic melanoma
Subjective
Pain has been well controlled with morphine. c/o painful eye with decreased vision.
Vital Signs:
Vital Signs
Temp Pulse Resp BP Pulse Ox
97.6 F 91 13 118/81 93
08/14/24 19:14 08/14/24 20:03 08/14/24 20:03 08/14/24 19:31 08/14/24 20:03
Lab Results:
Laboratory Data
WBC 10.1 10^3/uL (4.8-10.8) 08/14/24 03:25
Hgb 10.8 g/dL (13.0-18.0) L 08/14/24 03:25
Plt Count 335 10^3/uL (130-400) 08/14/24 03:25
eGFR > 60.00 08/14/24 03:25
Physical Exam
Awake, alert
B/l scleral injection
Heart regular
Lungs clear
[2024-08-15 03:00] VITALS: BP 111/57
[2024-08-15] MEDS: SYNTHROID 137 MCG PO (05:50)
[2024-08-15 06:00] VITALS: BMI 25.3
[2024-08-15 07:31] LABS: % Basophils 0.3 % (0-2); % Eosinophils 1.1 % (0-6); % Immature Granulocytes 2.8 % (0-0.5); % Lymphocytes 18.1 % (20.5-51.1); % Monocytes 13.7 % (1.7-9.3); Absolute Eosinophils 0.1 10^3/uL (0-0.7); Absolute Immature Granulocytes 0.2 10^3/uL (0-0.05); Absolute Lymphocytes 1.3 10^3/uL (1.2-3.4); Absolute Neutrophils 4.8 10^3/uL (1.4-6.5); Hematocrit 30.8 % (39.0-52.0); Hemoglobin 10.2 g/dL (13.0-18.0); Mean Corp Hgb Conc. 33.1 g/dL (33.0-37.0); Mean Corpuscular Volume 90.6 fL (80.0-94.0); Mean Platelet Volume 9.8 fL (7.4-10.4); Nucleated Red Blood Cells % 0 % (-); Platelet Count 332 10^3/uL (130-400); Red Cell Dist. Width 13.4 % (11.5-14.5); White Blood Cell Count 7.4 10^3/uL (4.8-10.8)
--- NOTE | 2024-08-15 07:53 | W.PN.HOSP.TC ---
Addendum entered and electronically signed by Carolyn Blancas MD 08/15/24 17:58:
I saw and evaluated the patient independently. I reviewed the resident�s note and agree with findings and plan as documented Dr. Paul.
GENERAL: well developed, well nourished, male in no apparent distress
HEENT: NC/AT--sclera/conjunctiva red and swollen
HEART: regular rate and rhythm, +S1, +S2
LUNGS : clear to auscultation bilaterally
ABDOM: soft, nontender, nondistended, + bowel sounds
EXT: no cyanosis, clubbing, or edema
NEUROLOGIC: grossly intact
PSYCH: anxious
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
options moving forward
acute decreased vision with red painful eye--thoughts were episcleritis--apprec input from ophtho (Dr. Vega saw patient) and thinks subconjunctival hemmhorage--likely will need eyedrops....
adrenal insufficiency -- on higher dose hydrocortisone for stress dosing....back to outpt doses
metastatic melanoma to lung -- treatment decisions as above
HFpEF--no exacerbation--cont meds as able
chronic functional diarrhea--currently without issues
DVT proph
code status -- FULL CODE
ok for d/c
Original Note:
Today's Communication/Plan
-
Discharge
Assessment / Plan
Assessment / Plan
IMPRESSION
Patient is a 74-year-old male with past medical history of metastatic melanoma with pulmonary involvement, hypothyroid, adrenal insufficiency, severe peripheral neuropathy, chronic headaches, chronic functional diarrhea who presented to emergency
with diffuse body pains, right eye and decreased vision. He resumed his immunotherapy with Opdualag on June 14, 2024. In the past he had severe peripheral neuropathy with the same drug and he took 8 months off from the drug. He received his
first dose on June 14, second dose on July 12, and third dose on August 11, 2024 and he developed diffuse body aches and pains along with an elevated WBC count of 12.1 with 94% monocytes.
Patient developed SIRS in reaction to his immunotherapy.
ASSESSMENT/PLAN
Immune mediated reactions to Opdualag
Patient received his third dose of Opdualag on August 11, 2024
Developed chills, fatigue, muscle aches, body aches, joint pains and red eyes
CT chest done 08/13/2024
IMPRESSION:
1. No evidence of pulmonary embolism.
2. Scattered groundglass opacities which in the right upper lobe which likely represent pneumonia.
3. Trace pericardial effusion.
4. Moderate coronary artery atherosclerotic calcifications.
CT abdomen/pelvis 08/13/2024
IMPRESSION:
There is new mild stranding and prominent mesenteric lymph nodes within the left upper quadrant, along the distal duodenum/proximal jejunum which may represent enteritis, however mesenteric panniculitis could appear similar.
Calcified gallstone within the gallbladder neck, unchanged from prior. There are no CT findings of acute cholecystitis.
Unchanged gastric diverticulum.
Colonic diverticulosis.
Patient follows up at [facility]
Currently on hydrocortisone 60 mg per oral daily
ID and oncology agreed and discontinued antibiotics
Leukocytosis resolved
Oncology ok with stress dose of steroids,d/c antibiotics but want ophthamology assessment before planning discharge
Melanoma with lung mets
Metastatic melanoma w/ lung metastases currently on immunotherapy at [facility]
Previous adverse reaction to immunotherapy Opdualag which was held.
Resumed-SIRS in response
Patient unsure if he wants to continue the treatment
Patient would meet the Oncologist to discuss options
Leukocytosis
Fever resolved
Leukocytosis resolved
-Blood cx's neg to date.
- CXR neg. CT chest nonspecific groundglass opacity RUL
Heart failure with preserved ejection fraction
Stable at the moment
Acute red eye with pain
Patient had red eyes on admission
Does not remember any eye complication from immunotherapy in the past
Had a cataract surgery done, says that the surgery did not help him and he still sees a lot of floaters in the vision is blurry
He complains of photosensitivity and sensitivity to bright light
No discharge from the eye
Dr. Reis saw the patient and he reassured the patient that he should continue the eyedrops that he is using and the redness with go away in 5 to 7 days.
He had no concerns on urgent basis and he felt fine if the patient would follow-up with him in the clinic.
Chronic functional diarrhea-denies any issues at the moment
Chronic headaches-feels well with the pain medications
DVT prophylaxis- Enoxaprin 40mg SC QPM
Anticipated Discharge: Today
Subjective/Interval History
-
Date of Service: August 15, 2024
Anxious about his vision and the treatment options for him.Otherwise feels well and pain is being managed well
Objective Data
-
Labs:
Laboratory Results
08/15/24
06:37
WBC 7.4
Hgb 10.2 L
Hct 30.8 L
Plt Count 332
Sodium Pending
Potassium Pending
Chloride Pending
Carbon Dioxide Pending
BUN Pending
Creatinine Pending
Glucose Pending
Calcium Pending
Total Bilirubin Pending
AST Pending
ALT Pending
Alkaline Phosphatase Pending
Vital Signs:
Vital Signs
Temp Pulse Resp BP Pulse Ox
97.9 F 88 14 111/57 99
08/15/24 03:00 08/15/24 03:00 08/15/24 03:00 08/15/24 03:00 08/15/24 03:00
I&O
08/14/24 08/15/24 08/16/24
06:59 06:59 06:59
Intake Total 2280 / 2280 340 / 340 900 / 900
Output Total 1600 / 1600 500 / 500 350 / 350
Balance 680 / 680 -160 / -160 550 / 550
Review of Systems
-
All other systems: Reviewed and negative
Physical Exam
-
General: Well Developed, Well Nourished and Conversant
HEENT: Normocephalic, Atraumatic and Other (Bilateral red eyes)
Respiratory: Clear to Auscultation and Other (No wheezes, ronchi or rales)
Cardiac: Regular Rhythm and S1/S2
GI: Soft, Nontender and Normal Bowel Sounds
Musculoskeletal: No Clubbing, No Cyanosis and No Edema
Skin: Warm and Dry
Neuro: Alert, Oriented and No Motor Deficits
Psych: Anxious
[2024-08-15] MEDS: FLOVENT 44 MCG INHALER 2 PUFF INH (07:58)
[2024-08-15] MEDS: SPIRIVA RESPIMAT 2.5 MCG 2 PUFF INH (07:59)
[2024-08-15] MEDS: STRIVERDI RESPIMAT INH (08:00)
[2024-08-15 08:01] LABS: ALT (SGPT) 32 U/L (0-50); AST (SGOT) 33 U/L (17-59); Albumin 3.1 g/dl (3.5-5.0); Alkaline Phosphatase 229 U/L (38-126); Blood Urea Nitrogen 27 mg/dl (9-20); Calcium 8.7 mg/dl (8.4-10.2); Carbon Dioxide 27 mmol/L (22-30); Chloride 104 mmol/L (98-107); Estimated Creatinine Clearance 59 ml/min; Glucose 112 mg/dl (70-99); Magnesium 2.1 mg/dl (1.6-2.3); Potassium 3.5 mmol/L (3.5-5.1); Sodium 138 mmol/L (135-145); Total Bilirubin 0.1 mg/dl (0.2-1.3); Total Protein 5.2 g/dl (6.3-8.2); eGFR > 60.00
[2024-08-15 08:35] VITALS: BP 119/66
[2024-08-15] MEDS: PROTONIX 40 MG PO (08:47)
[2024-08-15] MEDS: NEURONTIN 600 MG PO (08:47)
[2024-08-15] MEDS: LIPITOR 40 MG PO (08:47)
[2024-08-15] MEDS: REFRESH EYE DROPS (PF) 1 DROPS BOTH EYES ×3 (08:47→17:16)
--- NOTE | 2024-08-15 09:10 | W.PN.ONC2 ---
Today's Communication / Plan
-
no further inpatient recommendations - ok for discharge. Medical oncology will sign off, please reach out with any questions or concerns
I have provided my office contact information so that pt can schedule a new pt apt if he wishes to transition to our office for medical oncology care since closer to home
OP follow up with primary oncologist
OP MRI head for restaging planned for next week
Impression
Impression
- SIRS
- metastatic melanoma on opdualag -resumed monthly Opdualag on 06/14/24 after 8 month tx holiday, last received 08/11
- ICI toxicities with myalgias, neuropathies, endocrinopathies
- chronic steroid use
- ocular toxicity with pain and difficulty seeing -management per optho
-fever resolved -ID following
Plan
Plan
- presenting with worsening joint/muscle pain which has been issue over past year and, per pt, thought to be ICI toxicity.
- continue hydrocortisone dose. Fluticasone added
Subjective/Objective
Subjective
no new complaints
eyes 'feel better'
Vital Signs:
Vital Signs
Temp Pulse Resp BP Pulse Ox
97.9 F 80 16 119/66 97
08/15/24 08:35 08/15/24 08:35 08/15/24 08:35 08/15/24 08:35 08/15/24 08:35
Lab Results:
Laboratory Data
WBC 7.4 10^3/uL (4.8-10.8) 08/15/24 06:37
Hgb 10.2 g/dL (13.0-18.0) L 08/15/24 06:37
Plt Count 332 10^3/uL (130-400) 08/15/24 06:37
eGFR > 60.00 08/15/24 06:37
Physical Exam
Awake, alert
B/l scleral injection
Heart regular
Lungs clear
[2024-08-15] MEDS: HYDROCORTONE/CORTEF 40 MG PO (09:46)
[2024-08-15 11:28] VITALS: BP 119/66
[2024-08-15] MEDS: TYLENOL 650 MG PO (13:11)
[2024-08-15 13:27] VITALS: BP 133/75; BP 139/85; PULSE 84; O2SAT 98
[2024-08-15] MEDS: HYDROCORTONE/CORTEF 20 MG PO (14:31)
[2024-08-15 15:19] VITALS: BP 116/68
--- NOTE | 2024-08-15 16:23 | VNURNOTE ---
Home Health Liaison spoke with patient to discuss [facility] nurse/therapy, visits, schedule and homebound status. Patient is agreeable and understands that visits at home will be 2-3 x per week to assess and teach medical management. Patient is aware
that [facility] will contact them for start of care in 1-2 days after discharge from . [facility] referral completed in [facility].
[2024-08-15] MEDS: LOVENOX 40 MG SC (17:15)
--- NOTE | 2024-08-15 17:24 | CM ---
Patient seen at bedside with physicians. Patient stated that he has a ride home and that he completed IMM form placed on chart. Patient requested [facility] after review of PAC data and tt sent to liaison for follow up. Patient plan is for discharge home
today. CM will continue to follow for discharge planning needs.
Plan; home with [facility] to follow
[2024-08-15 17:30] VITALS: BP 125/65
--- NOTE | 2024-08-15 18:11 | W.DCSUMMARY ---
Addendum entered and electronically signed by Carolyn Blancas MD 08/16/24 07:11:
Read, reviewed, and agree. See same day progress note for additional details. Time spent coordinating care, DC planning, review of DC plan of care with resident, transition of care, review of records in EMR, med rec, consults, notes, d/w
consultants, nursing, family, and CM = 33 minutes
Original Note:
Discharge Summary
Discharge Data
Date of Admission: 08/13/24
Date of Discharge: 08/15/24
-
Pending Results: No
Hospital Course
Disposition :
Home( with home care)
Primary care physician :
MAY Ortiz
Principal Discharge diagnosis :
SIRS from Immune mediated reactions to Opdualag
Chronic Discharge diagnosis :
Metastatic melanoma w/ lung metastases
COPD
Hypothyroidism
HFpEF
GERD
Adrenal insufficiency on steroid
Peripheral neuropathy
Chronic diarrhea
Chronic headaches/migraine
Cataract surgery in August 2023-unsuccessful
History of hernia repair and melanoma excision
Hospital Course :
Patient is a 74-year-old male with history of COPD adrenal insufficiency on hydrocortisone 30 mg at home, chest wall melanoma with mets to the lungs with previous adverse reaction to immunotherapy Opdualag which was held due to severe neuropathy in
November,. Patient resumed immunotherapy with Opdualag in May, first dose June 14, 2024, second dose on July 12, 2024, third dose on August 11, 2024. Patient experienced diffuse body pain and aches all over the body and his joints,
had burning pain in his right shoulder, abdominal pain, back pain, chest pain. He also developed diffuse redness of both sclera along with blurred vision and floaters. Patient has history of adrenal sufficiency and is on chronic steroids so he was
put on stress dosing, patient responded and has been improving.
Patient was evaluated by oncology and infectious diseases who both agreed that the leukocytosis was the immune response and not infectious, patient responded to high-dose steroids, leukocytosis resolved and patient shifted back to home dose of
hydrocortisone. There was also concern about the red eyes clinically appeared to be episcleritis, patient seen by ophthalmology, Dr. Reis who suggested that the redness will go away in 5 to 7 days with the eyedrops and he can follow-up the
patient on outdoor basis.
The patient would be seeing his oncologist to re-discuss his treatment options because he is not willing to do Opdualag again.
Important imaging findings :
CT chest done 08/13/2024
IMPRESSION:
1. No evidence of pulmonary embolism.
2. Scattered groundglass opacities which in the right upper lobe which likely represent pneumonia.
3. Trace pericardial effusion.
4. Moderate coronary artery atherosclerotic calcifications.
CT abdomen/pelvis 08/13/2024
IMPRESSION:
There is new mild stranding and prominent mesenteric lymph nodes within the left upper quadrant, along the distal duodenum/proximal jejunum which may represent enteritis, however mesenteric panniculitis could appear similar.
Calcified gallstone within the gallbladder neck, unchanged from prior. There are no CT findings of acute cholecystitis.
Unchanged gastric diverticulum.
Colonic diverticulosis.
Discharge Plan
-
Patient Disposition: Home with Home Care
Discharge Diagnosis/Procedures: SIRS from Immune mediated reactions to Opdualag/Metastatic melanoma w/ lung metastases
Condition: Fair
Diet: Regular
Activity: As tolerated
Driving Restrictions: As prior to admission
Bathing Restrictions: OK to Shower
Other Services: VN
Referrals:
Jayesh Ma PA [Family Provider] - in less than 1 week
Prescriptions:
New
Refresh Classic (PF) 1.4-0.6 % Dropperette
1 drops BOTH EYES QID 7 Days Qty: 1 0RF
oxycodone 5 mg tablet
5 mg PO BID PRN (Reason: pain) Qty: 10 0RF
Continued
pantoprazole [Protonix] 40 mg Tablet,Delayed Release (Dr/Ec)
40 mg PO DAILY
hydrocortisone 10 mg Tablet
20 mg PO DAILY
hydrocortisone 10 mg Tablet
10 mg PO DAILY@1400
Anoro Ellipta 62.5-25 mcg/actuation Blister With Device
1 inh INHALATION R DAILY
thiamine HCl (vitamin B1) 100 mg Tablet
100 mg PO DAILY
acetaminophen [Tylenol Extra Strength] 500 mg Tablet
1,000 mg PO Q6HPRN PRN (Reason: mild pain/headache)
zinc sulfate 50 mg zinc (220 mg) Tablet
50 mg PO DAILY
cholecalciferol (vitamin D3) [Vitamin D3] 25 mcg (1,000 unit) Tablet
25 mcg PO DAILY
Arnuity Ellipta 100 mcg/actuation Blister With Device
1 inh INHALATION R DAILY
furosemide [Lasix] 40 mg tablet
40 mg PO DAILY Qty: 30 0RF
gabapentin 300 mg Capsule
600 mg PO BID Qty: 120 0RF
atorvastatin 40 mg Tablet
40 mg PO DAILY
cyanocobalamin (vitamin B-12) 1,000 mcg Tablet
1,000 mcg PO DAILY
amlodipine 2.5 mg Tablet
2.5 mg PO HS
prochlorperazine maleate 10 mg Tablet
10 mg PO TIDPRN PRN (Reason: headache)
potassium 99 mg Tablet
99 mg PO DAILY
amitriptyline 10 mg Tablet
20 mg PO DAILY
albuterol sulfate 90 mcg/actuation Hfa Aerosol Inhaler
2 puff INHALATION R Q4HPRN PRN (Reason: sob)
magnesium oxide 200 mg magnesium Tablet
100 mg PO SUMOTUTHSA
magnesium oxide 200 mg magnesium Tablet
200 mg PO WEFR
levothyroxine 137 mcg Tablet
137 mcg PO DAILY
Discharge Orders:
Discharge Patient (As Directed); Ordered 08/15/24
Ordered By: Carolyn Blancas
Discharge Date and Time
Print Language: TAJIK
== END 2024-08-15 18:10 | disposition home health service (06) | DRG 864 ==
LOC: 3 WEST ACU 05:40
PROVIDERS: ADMITTING PHYSICIAN Hospitalist; ATTENDING PHYSICIAN Internal Medicine; CONSULT PHYSICIAN Internal Medicine Infectious Disease; EMERGENCY PHYSICIAN Student in an Organized Health Care Education/Training Program; FAMILY PHYSICIAN Physician Assistant; OTHER PHYSICIAN Internal Medicine Hematology & Oncology
DX: R50.2 Drug induced fever (principal); J18.9 Pneumonia, unspecified organism; C78.00 Secondary malignant neoplasm of unspecified lung; J44.0 Chronic obstructive pulmonary disease with (acute) lower respiratory infection; I50.32 Chronic diastolic (congestive) heart failure; E27.40 Unspecified adrenocortical insufficiency; R65.10 Systemic inflammatory response syndrome (SIRS) of non-infectious origin without acute organ dysfunction; Z11.52 Encounter for screening for COVID-19; C43.9 Malignant melanoma of skin, unspecified; E03.9 Hypothyroidism, unspecified; I34.0 Nonrheumatic mitral (valve) insufficiency; K59.1 Functional diarrhea; K57.30 Diverticulosis of large intestine without perforation or abscess without bleeding; T45.AX5A Adverse effect of immune checkpoint inhibitors and immunostimulant drugs, initial encounter; H15.003 Unspecified scleritis, bilateral; K52.9 Noninfective gastroenteritis and colitis, unspecified; H35.383 Toxic maculopathy, bilateral
CPT/HCPCS: 71275; 74177; 80053; 81003; 82248; 82550; 83605; 83735; 84100; 84484; 85025; 85027; 85652; 86140; 87040; 87502; 87811; 93005; 94640; 96365; 96375; 97116; 97163; 97167; 97530; 99291; Q9967

== ENCOUNTER 2024-08-17 15:33 | Inpatient (IN) | payer OTHER, SELFPAY ==
[2024-08-17] VITALS (9 sets, daily range): BP systolic 94–132; BP diastolic 63–78; BMI 25.9; BMI 25.0
--- NOTE | 2024-08-17 10:05 | ED.GENMED ---
History of Present Illness
General
Chief Complaint: Failure to Thrive
Source: patient
Exam Limitations: none
Time Seen by Provider: 08/17/24 09:57
History of Present Illness
History of Present Illness:
See MDM
Past History
Past History
ED Past Medical History: Cancer (Lung cancer), COPD, GERD and Other (Alcohol abuse/tobacco abuse)
ED Past Surgical History: Other (hernia)
Social History
Tobacco: Smoker
Alcohol: Chronic alcoholic
Drug: None
Personal:
Living: with family
Employment: Retired
Family History
Family History: Other (Noncontributory)
Phy Exam
Physical Exam
Physical Exam:
See MDM
Course
Orders/Labs/Results
Orders:
Orders
08/17/24 09:46
Electrocardiogram (*1) Urgent
Reason for Study: Shortness of Breath
EKG- Treatment ONCE
CXR2 [CR Chest - 2 Views ] Urgent
Comment:
Reason For Exam: failure to thrive
08/17/24 10:00
HYDROmorphone [Dilaudid] 1 mg IV NOW STA
08/17/24 11:24
Complete Blood Count/With Diff Urgent
Comprehensive Metabolic Panel Urgent
Lipase Urgent
Troponin I Urgent
08/17/24 11:26
0.9% Sodium Chloride 1000 ml [Nss] 1,000 ml IV BOLUS
08/17/24 11:46
CT Pe/abd/pel W Urgent
Reason For Exam: SOB, chest pain
HYDROmorphone [Dilaudid] 1 mg IV NOW STA
08/17/24 12:19
Potassium Chloride [KCl] 40 meq 0.9% Sodium Chloride 250 ml [Nss] 250 ml IV NOW
08/17/24 13:33
Lactic Acid Q4H
Comment: CANCEL 2nd LACTIC ACID IF 1st LACTIC ACID IS LESS THAN 2
08/17/24 17:30
Lactic Acid Q4H
Comment: CANCEL 2nd LACTIC ACID IF 1st LACTIC ACID IS LESS THAN 2
Abnormal Lab Results
08/17/24
11:24
WBC 21.2 H 10^3/uL
(4.8-10.8)
Plt Count 467 H D 10^3/uL
(130-400)
Potassium 3.1 L mmol/L
(3.5-5.1)
Carbon Dioxide 19 L mmol/L
(22-30)
BUN 28 H mg/dl
(9-20)
Creatinine 1.6 H mg/dL
(0.7-1.3)
Glucose 101 H mg/dl
(70-99)
Alkaline Phosphatase 181 H U/L
(38-126)
Troponin I 0.043 H* ng/ml
Total Protein 5.4 L g/dl
(6.3-8.2)
Albumin 3.2 L g/dl
(3.5-5.0)
08/17/24 11:24
08/17/24 11:24
Vital Signs
Initial and Last Documented VS:
Initial Vital Signs
Temp Pulse Resp Pulse Ox
98 F 100 18 97
08/17/24 09:36 08/17/24 09:36 08/17/24 09:36 08/17/24 09:36
Last Documented Vital Signs
Temp Pulse Resp BP Pulse Ox
98 F 129 10 110/68 97
08/17/24 09:36 08/17/24 11:15 08/17/24 11:15 08/17/24 11:10 08/17/24 09:36
MDM/Problems Addressed
Differential Diagnosis Includes:
HPI and MDM Narrative:
74-year-old male presenting for evaluation of persistent pain. Patient was recently discharged from the hospital yesterday. He has a history of metastatic melanoma. He was discharged with oxycodone but he states that is not helping. Will give
dose of IV Dilaudid and continue to reassess
On exam, patient is very uncomfortable. He is tachycardic and clinically dry. Will start IV fluids IV pain medicine.
Physical exam
General: Uncomfortable, disheveled
HEENT: protecting airway
Neck: appears supple
CV: No evidence of cyanosis
Resp: No accessory muscle use.
Abd: Non-distended. Mild tenderness throughout
Extremities: No deformities
Neuro: alert
Psych: Normal affect
Skin: Intact
Problems Addressed including Acute and Chronic Conditions affecting care:
1. Cancer related pain
Acuity: acute
Prognosis: stable
Details: Will give dose of IV Dilaudid and continue to reassess
2. Tachycardia
Acuity: acute
Prognosis: stable
Details: Will provide IV fluids
3. Chest/abdomen/pelvic pain
Acuity: acute
Prognosis: stable
Details: Given his history of cancer, will obtain CT to rule out PE. Will obtain CT abdomen/pelvis given ongoing pain
Updates
Patient becoming hypoxic requiring supplemental oxygen.
1:55 PM Case discussed with his [facility] oncologist Dr. Lauri Perales ( ). We discussed his symptoms. He had relayed the concern for delayed inflammatory response to his immunotherapy. We discussed his current hydrocortisone
steroid regimen which is for adrenal insufficiency. Given the concern that his symptoms could be inflammatory response to his immunotherapy, we discussed holding his hydrocortisone and starting higher dose prednisone, up to 1 mg/kg. We discussed
starting at 5 mg to assess for any improvement. The plan would be to go back on his normal stress dose steroid regimen once he could be weaned down to 5 mg of prednisone a day
Differential Diagnosis (but not limited to): Cancer related pain, dehydration, anemia
Testing considered: Repeat CT
Drug therapy (if applicable): OTC meds, please see d/c instruction regarding Rx drugs
Amount and/or Complexity of Data Reviewed
Clinical info obtained from: Patient
External data reviewed: Recent CT chest shows concern for pneumonia but his cultures we negative
Labs I independently reviewed (but not limited to): hypokalemia, leukocystosis
Radiology: The CT scan was personally and independently reviewed. In addition, official CT report reviewed.
Pulse Ox: not hypoxic
EKG independently reviewed: sinus tachycardia, normal axis, no STEMI
Insurance Defense Paralegal: Sinus tachycardia
Critical Care: N/A
Risk of Complication:
Social Determinants of health: Good social support
Discussed with other providers: Hospitalist
Escalation of Care includes Admit/Obs: Given his dehydration and persistent pain, will admit
Occasional wrong word or 'sound a like' substitutions may have occurred due to the inherent limitations of voice recognition software. Read the chart carefully and recognize, using context, where substitutions have occurred.
*Critical Care Note
Total Time (30-74mins, 75-104mins- exclusive of procedures): Not Applicable
ED Attending Note
-
Portions of this chart may have been created with voice recognition software.� Occasional wrong word or��sound alike� substitutions may have occurred due to the inherent limitations of voice recognition software.
Discharge Plan
Departure
Patient Disposition: Admit
Date of Disposition: 08/17/24
Time of Disposition: 14:02
Admit to: Med/Surg
Presentation/result/management discussed w/ accepting MD/DO: Hospitalist
Discharge Problem:
Hypokalemia, Cancer associated pain
Prescriptions:
No Action
pantoprazole [Protonix] 40 mg Tablet,Delayed Release (Dr/Ec)
40 mg PO DAILY
hydrocortisone 10 mg Tablet
20 mg PO DAILY
hydrocortisone 10 mg Tablet
10 mg PO DAILY@1400
Anoro Ellipta 62.5-25 mcg/actuation Blister With Device
1 inh INHALATION R DAILY
thiamine HCl (vitamin B1) 100 mg Tablet
100 mg PO DAILY
acetaminophen [Tylenol Extra Strength] 500 mg Tablet
1,000 mg PO Q6HPRN PRN (Reason: mild pain/headache)
zinc sulfate 50 mg zinc (220 mg) Tablet
50 mg PO DAILY
cholecalciferol (vitamin D3) [Vitamin D3] 25 mcg (1,000 unit) Tablet
25 mcg PO DAILY
Arnuity Ellipta 100 mcg/actuation Blister With Device
1 inh INHALATION R DAILY
furosemide [Lasix] 40 mg tablet
40 mg PO DAILY Qty: 30 0RF
gabapentin 300 mg Capsule
600 mg PO BID Qty: 120 0RF
atorvastatin 40 mg Tablet
40 mg PO DAILY
cyanocobalamin (vitamin B-12) 1,000 mcg Tablet
1,000 mcg PO DAILY
amlodipine 2.5 mg Tablet
2.5 mg PO HS
prochlorperazine maleate 10 mg Tablet
10 mg PO TIDPRN PRN (Reason: headache)
potassium 99 mg Tablet
99 mg PO DAILY
amitriptyline 10 mg Tablet
20 mg PO DAILY
albuterol sulfate 90 mcg/actuation Hfa Aerosol Inhaler
2 puff INHALATION R Q4HPRN PRN (Reason: sob)
magnesium oxide 200 mg magnesium Tablet
100 mg PO SUMOTUTHSA
magnesium oxide 200 mg magnesium Tablet
200 mg PO WEFR
levothyroxine 137 mcg Tablet
137 mcg PO DAILY
Refresh Classic (PF) 1.4-0.6 % Dropperette
1 drops BOTH EYES QID 7 Days Qty: 1 0RF
oxycodone 5 mg tablet
5 mg PO BID PRN (Reason: pain) Qty: 10 0RF
Referrals:
Jayesh Ma PA [Family Provider] -
Interventions
Interventions:
*Risk Screen - Suicide Last Done: 08/17/24 09:36
*General Assessment Last Done: 08/17/24 09:36
*Neglect/Abuse Screening Last Done: 08/17/24 09:36
*ED COVID-19 Vaccine History Last Done: 08/17/24 09:42
Discharge Date and Time
Print Language: ANGUILLAN
[2024-08-17] MEDS: DILAUDID 1 MG IV ×2 (10:26→11:56)
[2024-08-17] MEDS: NSS 1000 IV ×2 (11:31→18:08)
[2024-08-17 11:45] LABS: Hematocrit 42.5 % (39.0-52.0); Hemoglobin 14.1 g/dL (13.0-18.0); Mean Corp Hgb Conc. 33.2 g/dL (33.0-37.0); Mean Corpuscular Hgb 29.9 pg (27.0-31.0); Mean Corpuscular Volume 90.2 fL (80.0-94.0); Mean Platelet Volume 9.4 fL (7.4-10.4); Platelet Count 467 10^3/uL (130-400); Red Blood Cell Count 4.71 10^6/uL (4.70-6.10); Red Cell Dist. Width 13.8 % (11.5-14.5); White Blood Cell Count 21.2 10^3/uL (4.8-10.8)
[2024-08-17 11:56] LABS: ALT (SGPT) 21 U/L (0-50); AST (SGOT) 23 U/L (17-59); Albumin 3.2 g/dl (3.5-5.0); Alkaline Phosphatase 181 U/L (38-126); Blood Urea Nitrogen 28 mg/dl (9-20); Calcium 8.7 mg/dl (8.4-10.2); Carbon Dioxide 19 mmol/L (22-30); Chloride 103 mmol/L (98-107); Estimated Creatinine Clearance 40 ml/min; Glucose 101 mg/dl (70-99); Lipase 55 U/L (23-300); Potassium 3.1 mmol/L (3.5-5.1); Sodium 135 mmol/L (135-145); Total Bilirubin 0.4 mg/dl (0.2-1.3); Total Protein 5.4 g/dl (6.3-8.2)
[2024-08-17 12:04] LABS: Troponin I 0.043 ng/ml
[2024-08-17] MEDS: KCL 270 MEQ IV (13:28)
[2024-08-17 13:56] LABS: Lactic Acid 1.2 mmol/L (0.7-2.0)
--- NOTE | 2024-08-17 14:05 | HPS.HSE ---
Family Physician
-
Family Physician: MAY Ortiz
Chief Complaint
-
pain/confusion
History of Present Illness
Patient is a 74-year-old male with past medical history significant for metastatic melanoma, hypothyroidism, and COPD who presented to [facility] for evaluation of persistent pain and confusion s/p hospital discharge yesterday. Patient states he
is unaware what day it is today and believes he was home a few days. He expresses his concern with the new onset of confusion. He states since he was discharged he has had pain in abdomen, no appetite and emesis and diarrhea. Patient denies any
fevers, chills, cough, shortness of breath, chest pain, constipation or urinary symptoms. ED spoke with Dr. Lauri Perales @ [facility] who believes symptoms could be related to delayed inflammatory response from immunotherapy.
Medical History
Past Medical History
Past Medical History: Reports Other
Additional Past Medical History:
metastatic melanoma on immunotherapy
COPD
severe mitral regurgitation
hypothyroidism
adrenal insufficiency
severe peripheral neuropathy
chronic headaches/migraines
chronic/functional diarrhea
Past Surgical History: Reports Other
Additional Past Surgical History:
melanoma excision
hernia repair x2
Social History
Tobacco: Former Smoker (wuit 1 year ago, >50 pack year history)
Alcohol: Former (quit 1 year ago)
Drug: Former User
Personal: Single
Living: Alone
Employment: Not Employed
Family History
Family History: Not pertinent
Allergies / Home Medications
Allergies reflects when Allergies were last updated in [facility].
Home Medications with original date entered in [facility]
Allergy/Medication List:
Allergies
Allergy/AdvReac Type Severity Reaction Status Date / Time
No Known Allergies Allergy Verified 08/17/24 09:42
Home Medications
hydrocortisone 10 mg tablet 10 mg PO DAILY@1400 Anti-Inflammatory 11/20/23
hydrocortisone 10 mg tablet 20 mg PO DAILY Anti-Inflammatory 11/20/23
pantoprazole 40 mg tablet,delayed release (Protonix) 40 mg PO DAILY Gastrointestinal Issue 11/20/23
umeclidinium 62.5 mcg-vilanterol 25 mcg/actuation powdr for inhalation (Anoro Ellipta) 1 inh inhalation R DAILY Lung/Breathing Issues 11/20/23
thiamine HCl (vitamin B1) 100 mg tablet 100 mg PO DAILY Supplement 03/04/24
acetaminophen 500 mg tablet (Tylenol Extra Strength) 1,000 mg PO Q6HPRN PRN headache 03/08/24
cholecalciferol (vitamin D3) 25 mcg (1,000 unit) tablet (Vitamin D3) 25 mcg PO DAILY Supplement 03/08/24
fluticasone furoate 100 mcg/actuation blister powder for inhalation (Arnuity Ellipta) 1 inh inhalation R DAILY Lung/Breathing Issues 03/08/24
zinc sulfate 50 mg zinc (220 mg) tablet 50 mg PO DAILY Supplement 03/08/24
furosemide 40 mg tablet (Lasix) 40 mg PO DAILY #30 tabs 03/10/24
gabapentin 300 mg capsule 600 mg (2 x 300 mg) PO BID #120 caps 04/30/24
albuterol sulfate 90 mcg/actuation aerosol inhaler 2 puff inhalation R Q4HPRN PRN sob 08/10/24
amitriptyline 10 mg tablet 20 mg PO HS Mental Health/Anxiety 08/10/24
amlodipine 2.5 mg tablet 2.5 mg PO HS Blood Pressure 08/10/24
atorvastatin 40 mg tablet 40 mg PO DAILY High Cholesterol 08/10/24
cyanocobalamin (vitamin B-12) 1,000 mcg tablet 1,000 mcg PO DAILY Supplement 08/10/24
magnesium oxide 100 mg PO SUMOTUTHSA Electrolyte Repletion 08/10/24
magnesium oxide 200 mg PO WEFR Electrolyte Repletion 08/10/24
potassium 99 mg tablet 99 mg PO DAILY Electrolyte Repletion 08/10/24
prochlorperazine maleate 10 mg tablet 10 mg PO TIDPRN PRN headache 08/10/24
levothyroxine 137 mcg tablet 137 mcg PO DAILY Thyroid 08/13/24
oxycodone 5 mg tablet 5 mg PO BID PRN pain #10 tabs 08/15/24
polyvinyl alcohol-povidone (PF) 1.4 %-0.6 % eye drops in a dropperette (Refresh Classic (PF)) 1 drops BOTH EYES QID 7 days #1 ea 08/15/24
carvedilol 3.125 mg tablet (Coreg) 3.125 mg PO BID 08/17/24
Review of Systems
-
History Source: Patient
Constitutional: Reports No Symptoms
EENT: Reports No Symptoms
Respiratory: Reports No Symptoms
Cardiac: Reports No Symptoms
Abdomen/GI: Reports Abdominal Pain, Nausea, Vomiting, Diarrhea and Anorexia
: Reports No Symptoms
Musculoskeletal: Reports No Symptoms
Skin: Reports No Symptoms
Neurological: Reports Headache and Weakness
Endocrine: Reports No Symptoms
Hematologic/Lymphatic: Reports No Symptoms
Psych: Reports No Symptoms
Physical Exam
Vital Signs
Vital Signs
Temp Pulse Resp BP Pulse Ox
98 F 129 10 110/68 97
08/17/24 09:36 08/17/24 11:15 08/17/24 11:15 08/17/24 11:10 08/17/24 09:36
Physical Exam
General: Well Developed, Well Nourished, Pain and Poor Appetite
HEENT: NormoCephalic, Moist mucous membranes, Atraumatic, [place] Conjunctivae, Nose Appears Normal and Ears Appear Normal
Respiratory: Clear and Non Labored Respirations
Cardiac: S1/S2, Regular Rhythm and Tachycardia; No Murmur, Rub or Gallop
Breast: Deferred by me
GI: Soft, Normal Bowel Sounds (hyperactive) and Tender; No Organomegaly
Rectal: Deferred by Provider
Genito-urinary: Deferred by me
Musculoskeletal: No Clubbing, No Cyanosis and No Edema
Skin: Warm and IV/Catheter Site; No Rash
Neuro: Awake, Alert and Nonfocal/grossly intact
Hematologic/Lymphatic: No Lymphadenopathy
Psych: Calm and Confused (confusion noted with time)
Laboratory Results
-
08/17/24 11:24
08/17/24 11:24
Laboratory Results
Lactic Acid 1.2 mmol/L (0.7-2.0) 08/17/24 13:33
Total Bilirubin 0.4 mg/dl (0.2-1.3) 08/17/24 11:24
AST 23 U/L (17-59) 08/17/24 11:24
ALT 21 U/L (0-50) 08/17/24 11:24
Alkaline Phosphatase 181 U/L (38-126) H 08/17/24 11:24
Troponin I 0.043 ng/ml H* 08/17/24 11:24
Lipase 55 U/L (23-300) 08/17/24 11:24
Data Reviewed
-
Diagnostic Radiology: Report Reviewed by me (CXR: 2 right basilar opacification likely representing discoid atelectasis.)
CT Scan: Report Reviewed by me
Lab Data: Labs Reviewed by me
Impression/Plan
-
IMPRESSION/PLAN:
#Anorexia
#SIRS r/t enteritis/ileus
#failure to thrive
Abd/Pelvis CT: No findings to suggest central pulmonary embolism.
Small anterior pericardial effusion.
Small gastric diverticulum again seen.
Prominent gallbladder with at least one gallstone again identified. No findings to suggest biliary tract dilatation.
Fluid-filled stomach, fluid-filled loops of small bowel, some fluid-filled loops of large bowel as well as some small and large bowel wall enhancement,, few air-fluid levels, overall pattern of
which could represent enteritis/ileus. No free air.
Colonic diverticulosis again noted.
At least mild relative diffuse thickening of the wall of the urinary bladder which may be due to underdistention or bladder outlet obstruction (prostate gland mildly enlarged) - cannot
exclude other etiology such as cystitis.
Dr. Lauri Perales @ [facility] believes could be delayed inflammatory response to immunotherapy
- Admit to telemetry
- Consult Oncology
- hold hydrocortisone
- Start high dose prednisone
- IVF
- Norovirus pending
#ADALI
BUN 28, Creat 1.6
- IVF
- monitor BMP
#Hypokalemia
K+ 3.1
- 40meq IV given in ED
- monitor BMP
#Non-OH troponin elevation
no chest pain, r/t SIRS
- trend troponin to peak
#metastatic melanoma on immunotherapy
#severe peripheral neuropathy
Currently treated @ [facility] by Dr. Lauri Perales
- hold hydrocortisone
- start prednisone
#COPD
- continue albuterol HFA PRN, and Ellipta
#HFmrEF
#severe mitral regurgitation
- hold furosemide
- continue carvedilol
- monitor daily weights and I&O's
#hypothyroidism
- continue levothyroxine
#chronic headaches/migraines
- continue amitriptyline
#adrenal insufficiency
#chronic/functional diarrhea
Code status: Full Code
DVT Prophylaxis: Lovenox Sq
--- NOTE | 2024-08-17 14:05 | W.PN.UPDATE ---
Update Note
Progress Note Update
This is an addendum to H&P written by GEL[employer] M[employer]ER Pallavi Mujica
I saw and examined the patient.
The GEL[employer] MIXER's note was reviewed and I agree with the note.
Comment:
Mr. Shreyas Chance is a 74 yo man with hx metastatic melanoma with lung metastases, COPD, hypothyroidism, HFpEF, adrenal insufficiency on steroids, recent admission 08/13-08/15/24 for SIRS 2/2 reaction to immunotherapy (s/p stress dose steroids with
improvement of symptoms of diffuse body pain/aches) presents to the ER with anorexia and diarrhea.
Triage VS: T 98, P 100, RR 18, SpO2 97%
On exam patient is flushed appearing, + scleral erythema b/l, decreased bs/ no wheezing, abdomen tender, no rebound or guarding, no LE swelling
LABS: WBC 21.2, Hg 14.1, PLT 467, Na 135, K+ 3.1, Cl 103, CO2 19, BUN 28, Cr 1.6 (baseline 1.1), Trop 0.043
CT PE/A/P
IMPRESSION:
No findings to suggest central pulmonary embolism.
Small anterior pericardial effusion.
Small gastric diverticulum again seen.
Prominent gallbladder with at least one gallstone again identified. No findings to suggest biliary tract dilatation.
Fluid-filled stomach, fluid-filled loops of small bowel, some fluid-filled loops of large bowel as well as some small and large bowel wall enhancement,, few air-fluid levels, overall pattern of which could represent enteritis/ileus. No free air.
Colonic diverticulosis again noted.
At least mild relative diffuse thickening of the wall of the urinary bladder which may be due to underdistention or bladder outlet obstruction (prostate gland mildly enlarged) - cannot exclude other etiology such as cystitis.
Anorexia
SIRS 2/2 Enteritis/Ileus
Dehydration
-case discussed between Dr. Smith and patient's Oncologist, Dr. Perales who believes likely delayed inflammatory response to immunotherapy. Plan is to give stress dose prednisone at 50mg PO QD and monitor response
-admit to telemetry
-1.5L bolus in the ER, NS @ 100
-CLD
-check norovirus
-Oncology consult
-hold [employer] lasix
Non-IN Troponin elevation
-no chest pain, 2/2 SIRS
-trend Troponin
Hypokalemia
-40mEq IV given in ER
-check Mag
ADALI
-IVF as above
HFmrEF
-hold [employer] Lasix
-continue [employer] Coreg
Adrenal Insufficiency
-hold [employer] Hydrocortisone while receiving Prednisone (home hydrocortisone dosing = 7.5mg prednisone)
Hypothyroidism
-[employer] Synthroid
Neuropathy
-[employer] Gabapentin, Amitriptyline
Remainder of plan per GEL[employer] P[employer] MIXER's note
76 minutes spent on patient care
[2024-08-17] MEDS: DELTASONE 50 MG PO (14:15)
[2024-08-17] MEDS: NSS 500 IV (14:17)
[2024-08-17 14:30] LABS: Absolute Neutrophils -Man Diff 16.7 10^3/uL (1.4-6.5); Band Neutrophils 20 % (0-3); Lymphocytes 14 % (20-51); Metamyelocytes 2 % (-); Monocytes 5 % (2-9); Normal RBC Morphology Yes; Platelets Checked Yes; Segmented Neutrophils 59 % (42-75); Total Cells Counted 100
[2024-08-17 14:31] LABS: Toxic Granulation 1+
[2024-08-17 15:23] LABS: Magnesium 1.7 mg/dl (1.6-2.3)
[2024-08-17] MEDS: ROXICODONE 5 MG PO (18:06)
[2024-08-17] MEDS: LOVENOX 40 MG SC (18:07)
[2024-08-17] MEDS: REFRESH EYE DROPS (PF) 1 DROPS OPHTH ×2 (18:39→21:43)
--- NOTE | 2024-08-17 19:00 | PTCARENOTE ---
1730 Pt arrived from ER via stretcher alert and oriented. Noted MD orders, place pt on telemetry (Normal Sinus rhythm) heart rate 90's to low 100's.
Vs stable. Started IV Normal Saline at 100 ml/hr. Pt allowed clear liquids, ordered dinner tray, continue to monitor pt closely.
[2024-08-17] MEDS: FLOVENT 44 MCG INHALER 2 PUFF INH (19:57)
[2024-08-17 20:01] LABS: Troponin I 0.048 ng/ml
[2024-08-17] MEDS: NEURONTIN 600 MG PO (20:22)
[2024-08-17] MEDS: COREG 3.125 MG PO (20:22)
[2024-08-17] MEDS: COMPAZINE 10 MG PO (20:30)
[2024-08-17] MEDS: TYLENOL 650 MG PO (20:31)
[2024-08-17] MEDS: NORVASC 2.5 MG PO (21:42)
[2024-08-17] MEDS: ELAVIL 20 MG PO (21:42)
[2024-08-18 01:43] LABS: Troponin I 0.034 ng/ml
[2024-08-18 03:08] VITALS: BP 109/47
[2024-08-18] MEDS: NSS 1000 IV ×2 (03:59→14:24)
[2024-08-18] MEDS: SYNTHROID 137 MCG PO (05:09)
[2024-08-18 06:00] VITALS: BMI 25.4
[2024-08-18 07:45] VITALS: BP 136/74
[2024-08-18] MEDS: SPIRIVA RESPIMAT 2.5 MCG 2 PUFF INH (08:00)
[2024-08-18] MEDS: FLOVENT 44 MCG INHALER 2 PUFF INH ×2 (08:01→20:50)
[2024-08-18] MEDS: STRIVERDI RESPIMAT 2 PUFF INH (08:01)
[2024-08-18] MEDS: TYLENOL 650 MG PO ×2 (08:13→20:50)
[2024-08-18] MEDS: REFRESH EYE DROPS (PF) 1 DROPS OPHTH ×3 (08:14→20:35)
[2024-08-18] MEDS: NEURONTIN 600 MG PO ×2 (08:14→20:36)
[2024-08-18] MEDS: VITAMIN D3 (cholecalciferol) 25 MCG PO (08:15)
[2024-08-18] MEDS: DELTASONE 50 MG PO (08:15)
[2024-08-18] MEDS: LIPITOR 40 MG PO (08:15)
[2024-08-18] MEDS: PROTONIX 40 MG PO (08:15)
[2024-08-18] MEDS: ZINC 50 MG PO (08:15)
[2024-08-18] MEDS: VITAMIN B-12 1000 MCG PO (08:16)
[2024-08-18] MEDS: COREG 3.125 MG PO ×2 (08:19→20:35)
[2024-08-18] MEDS: VITAMIN B1 100 MG PO (08:19)
[2024-08-18 08:43] LABS: Hematocrit 34.8 % (39.0-52.0); Hemoglobin 11.2 g/dL (13.0-18.0); Mean Corp Hgb Conc. 32.2 g/dL (33.0-37.0); Mean Corpuscular Volume 93.3 fL (80.0-94.0); Mean Platelet Volume 9.4 fL (7.4-10.4); Platelet Count 380 10^3/uL (130-400); Red Blood Cell Count 3.73 10^6/uL (4.70-6.10); White Blood Cell Count 10.6 10^3/uL (4.8-10.8)
[2024-08-18 08:58] LABS: Blood Urea Nitrogen 23 mg/dl (9-20); Calcium 7.9 mg/dl (8.4-10.2); Carbon Dioxide 18 mmol/L (22-30); Chloride 104 mmol/L (98-107); Estimated Creatinine Clearance 59 ml/min; Glucose 115 mg/dl (70-99); Potassium 4.2 mmol/L (3.5-5.1); Sodium 133 mmol/L (135-145); eGFR > 60.00
[2024-08-18 09:00] VITALS: BMI 25.4
[2024-08-18 09:03] LABS: Troponin I 0.023 ng/ml
[2024-08-18 11:49] VITALS: BP 118/64
--- NOTE | 2024-08-18 12:04 | CON.ONC ---
Impression
Impression
metastatic melanoma
diarrhea
Plan
Plan
1. Metastatic melanoma - immunotherapy induced diarrhea
-cont prednisone
-supportive care
-follow clinically
-f/u at [facility] w/Dr. Lauri Perales
Will continue to follow with you.
Patient History
History of Present Illness
74y/o male seen in consultation today regarding metastatic melanoma on immunotherapy at [facility].
The patient has a h/o metastatic melanoma currently being treated w/ immunotherapy at [facility], under the care of Dr. Lauri Perales, now admitted w/ diarrhea, potentially immunotherapy induced.
CT imaging in the ER revealed an overall pattern of which could represent enteritis.
He has been placed on steroids w/ some improvement in his diarrhea.
Clinically, he is feeling better today. No abdominal pain. No nausea or vomiting. Only 1 episode of stool in the past 12 hours, per patient.
Past-Medical/Surgical History
PMH:
metastatic melanoma
COPD
severe mitral regurgitation
hypothyroidism
adrenal insufficiency
severe peripheral neuropathy
chronic headaches/migraines
chronic/functional diarrhea
PSH:
melanoma excision
hernia repair x2
Social History
Tobacco: Former Smoker (wuit 1 year ago, >50 pack year history)
Alcohol: Former (quit 1 year ago)
Family History
Family History: Not pertinent
Allergies: NKDA
Patient Medication
�Medication �Instructions �Recorded �Confirmed �Last Taken �Type
hydrocortisone 10 mg tablet 10 mg PO DAILY@1400 11/20/23 08/17/24 08/09/24 History
Anti-Inflammatory
hydrocortisone 10 mg tablet 20 mg PO DAILY Anti-Inflammatory 11/20/23 08/17/24 08/10/24 History
pantoprazole 40 mg tablet,delayed 40 mg PO DAILY Gastrointestinal 11/20/23 08/17/24 08/10/24 History
release (Protonix) Issue
umeclidinium 62.5 mcg-vilanterol 1 inh inhalation R DAILY 11/20/23 08/17/24 08/10/24 History
25 mcg/actuation powdr for Lung/Breathing Issues
inhalation (Anoro Ellipta)
thiamine HCl (vitamin B1) 100 mg 100 mg PO DAILY Supplement 03/04/24 08/17/24 08/10/24 History
tablet
acetaminophen 500 mg tablet 1,000 mg PO Q6HPRN PRN headache 03/08/24 08/17/24 03/07/24 History
(Tylenol Extra Strength)
cholecalciferol (vitamin D3) 25 25 mcg PO DAILY Supplement 03/08/24 08/17/24 08/10/24 History
mcg (1,000 unit) tablet (Vitamin
D3)
fluticasone furoate 100 1 inh inhalation R DAILY 03/08/24 08/17/24 08/10/24 History
mcg/actuation blister powder for Lung/Breathing Issues
inhalation (Arnuity Ellipta)
zinc sulfate 50 mg zinc (220 mg) 50 mg PO DAILY Supplement 03/08/24 08/17/24 08/10/24 History
tablet
furosemide 40 mg tablet (Lasix) 40 mg PO DAILY #30 tabs 03/10/24 08/17/24 08/10/24 Rx
gabapentin 300 mg capsule 600 mg (2 x 300 mg) PO BID #120 04/30/24 08/17/24 08/10/24 Rx
caps
albuterol sulfate 90 mcg/actuation 2 puff inhalation R Q4HPRN PRN sob 08/10/24 08/17/24 Unknown History
aerosol inhaler
amitriptyline 10 mg tablet 20 mg PO HS Mental Health/Anxiety 08/10/24 08/17/24 08/10/24 History
amlodipine 2.5 mg tablet 2.5 mg PO HS Blood Pressure 08/10/24 08/17/24 08/09/24 History
atorvastatin 40 mg tablet 40 mg PO DAILY High Cholesterol 08/10/24 08/17/2408/10/24 History
cyanocobalamin (vitamin B-12) 1,000 mcg PO DAILY Supplement 08/10/24 08/17/24 08/10/24 History
1,000 mcg tablet
magnesium oxide 100 mg PO SUMOTUTHSA Electrolyte 08/10/24 08/17/24 08/10/24 History
Repletion
magnesium oxide 200 mg PO WEFR Electrolyte 08/10/24 08/17/24 08/09/24 History
Repletion
potassium 99 mg tablet 99 mg PO DAILY Electrolyte 08/10/24 08/17/24 08/10/24 History
Repletion
prochlorperazine maleate 10 mg 10 mg PO TIDPRN PRN headache 08/10/24 08/17/24 Unknown History
tablet
levothyroxine 137 mcg tablet 137 mcg PO DAILY Thyroid 08/13/24 08/17/24 Unknown History
oxycodone 5 mg tablet 5 mg PO BID PRN pain #10 tabs 08/15/24 08/17/24 Unknown Rx
polyvinyl alcohol-povidone (PF) 1 drops BOTH EYES QID 7 days #1 ea 08/15/24 08/17/24 Unknown Rx
1.4 %-0.6 % eye drops in a
dropperette (Refresh Classic (PF))
carvedilol 3.125 mg tablet (Coreg) 3.125 mg PO BID 08/17/24 08/17/24 Unknown History
Active Medications
Generic Name Dose Route Start Last Admin
Trade Name Freq PRN Reason Stop Dose Admin
Acetaminophen 650 mg 08/17/24 16:58 08/18/24 08:13
Acetaminophen 325 Mg Tablet PO 09/14/24 16:57 650 mg
Q4HPRN PRN Administration
mild pain/RIVER/temp> 100.4F
Albuterol 2 puff 08/17/24 16:58
Albuterol Hfa [90 Mcg/Dose] Inhaler INH
R Q4HPRN PRN
sob
Protocol
Amitriptyline HCl 20 mg 08/17/24 22:00 08/17/24 21:42
Amitriptyline 10 Mg Tablet PO 09/14/24 21:59 20 mg
HS GERDA Administration
Amlodipine Besylate 2.5 mg 08/17/24 22:00 08/17/24 21:42
Amlodipine 2.5 Mg Tablet PO 09/14/24 21:59 2.5 mg
HS GERDA Administration
Artificial Tears 1 drops 08/17/24 18:20 08/18/24 08:14
Artificial Tears Pf (Refresh) 10 Drop Droperette OPHTH 09/14/24 18:19 1 drops
QID GERDA Administration
Atorvastatin Calcium 40 mg 08/18/24 08:00 08/18/24 08:15
Atorvastatin (Lipitor) 40 Mg Tablet PO 09/15/24 07:59 40 mg
DAILY GERDA Administration
Carvedilol 3.125 mg 08/17/24 20:00 08/18/24 08:19
Carvedilol 3.125 Mg Tablet PO 09/14/24 19:59 3.125 mg
BID GERDA Administration
Cholecalciferol 25 mcg 08/18/24 08:00 08/18/24 08:15
Cholecalciferol (Vitamin D3) 25 Mcg Tablet (1,000 Units) PO 09/15/24 07:59 25 mcg
DAILY GERDA Administration
Cyanocobalamin 1,000 mcg 08/18/24 08:00 08/18/24 08:16
Cyanocobalamin 1,000 Mcg Tablet PO 09/15/24 07:59 1,000 mcg
DAILY GERDA Administration
Enoxaparin Sodium 40 mg 08/17/24 18:00 08/17/24 18:07
Enoxaparin Sodium 40 Mg/0.4 Ml Syringe SC 09/14/24 17:59 40 mg
QPM GERDA Administration
Fluticasone Propionate 2 puff 08/17/24 20:00 08/18/24 08:01
Fluticasone 44 Mcg Inhaler INH 09/14/24 19:59 2 puff
R BID GERDA Administration
Gabapentin 600 mg 08/17/24 20:00 08/18/24 08:14
Gabapentin 300 Mg Capsule PO 09/14/24 19:59 600 mg
BID GERDA Administration
Sodium Chloride 1,000 mls @ 100 mls/hr 08/17/24 16:58 08/18/24 03:59
Nss IV 1,000 mls
.Q10H GERDA Administration
Levothyroxine Sodium 137 mcg 08/18/24 06:00 08/18/24 05:09
Levothyroxine 137 Mcg Tablet PO 09/15/24 05:59 137 mcg
DAILY@0600 GERDA Administration
Olodaterol 2 puff 08/18/24 08:00 08/18/24 08:01
Olodaterol (Striverdi Respimat) 2.5 Mcg Inhaler INH 09/15/24 07:59 2 puff
R DAILY GERDA Administration
Oxycodone HCl 5 mg 08/17/24 16:58 08/17/24 18:06
Oxycodone 5 Mg Regular Release Tablet PO 08/31/24 16:57 5 mg
BIDPRN PRN Administration
pain
Pantoprazole Sodium 40 mg 08/18/24 08:00 08/18/24 08:15
Pantoprazole 40 Mg Delayed Release Tablet PO 09/15/24 07:59 40 mg
DAILY GERDA Administration
Prednisone 50 mg 08/18/24 08:00 08/18/24 08:15
Prednisone 50 Mg Tablet PO 09/15/24 07:59 50 mg
DAILY GERDA Administration
Prochlorperazine Maleate 10 mg 08/17/24 16:58 08/17/24 20:30
Prochlorperazine 10 Mg Tablet PO 09/14/24 16:57 10 mg
TIDPRN PRN Administration
headache
Sodium Chloride 0 flush 08/17/24 18:00
Sodium Chloride 0.9% (Flush) Syringe IV 09/14/24 17:59
PER PROTOCOL GERDA
Thiamine HCl 100 mg 08/18/24 08:00 08/18/24 08:19
Thiamine 100 Mg Tablet PO 09/15/24 07:59 100 mg
DAILY GERDA Administration
Tiotropium [place] 2 puff 08/18/24 08:00 08/18/24 08:00
Tiotropium (Spiriva Respimat) 2.5 Mcg Inhaler INH 09/15/24 07:59 2 puff
R DAILY GERDA Administration
Zinc 50 mg 08/18/24 08:00 08/18/24 08:15
Zinc 50 Mg (Zinc Sulfate 220 Mg) Capsule PO 09/15/24 07:59 50 mg
DAILY GERDA Administration
Review of Systems
-
An ROS was performed w/ pertinent findings as per HPI.
Physical Exam
-
General: Well Developed and No Apparent Distress
HEENT: Negative Jaundice
Cardiology: Normal Sinus Rhythm
Pulmonary: Clear
GI: Soft
Neurology: Non Focal
Labs
Lab Results
WBC 10.6 10^3/uL (4.8-10.8) 08/18/24 07:56
RBC 3.73 10^6/uL (4.70-6.10) L 08/18/24 07:56
Hgb 11.2 g/dL (13.0-18.0) L D 08/18/24 07:56
Hct 34.8 % (39.0-52.0) L 08/18/24 07:56
MCV 93.3 fL (80.0-94.0) 08/18/24 07:56
MCH 30.0 pg (27.0-31.0) 08/18/24 07:56
MCHC 32.2 g/dL (33.0-37.0) L 08/18/24 07:56
RDW 14.0 % (11.5-14.5) 08/18/24 07:56
Plt Count 380 10^3/uL (130-400) 08/18/24 07:56
MPV 9.4 fL (7.4-10.4) 08/18/24 07:56
Abs Immat Gran (auto) Cancelled 08/17/24 10:33
Absolute Neuts (auto) Cancelled 08/17/24 10:33
Absolute Lymphs (auto) Cancelled 08/17/24 10:33
Absolute Monos (auto) Cancelled 08/17/24 10:33
Absolute Eos (auto) Cancelled 08/17/24 10:33
Absolute Basos (auto) Cancelled 08/17/24 10:33
Immature Gran % Cancelled 08/17/24 10:33
Neutrophils % Cancelled 08/17/24 10:33
Lymphocytes % Cancelled 08/17/24 10:33
Monocytes % Cancelled 08/17/24 10:33
Eosinophils % Cancelled 08/17/24 10:33
Basophils % Cancelled 08/17/24 10:33
Creatinine 1.1 mg/dL (0.7-1.3) 08/18/24 07:56
Vital Signs
Vital Signs
Temp Pulse Resp BP Pulse Ox
98.6 F 82 18 118/64 96
08/18/24 11:49 08/18/24 11:49 08/18/24 11:49 08/18/24 11:49 08/18/24 11:49
[2024-08-18] MEDS: ROXICODONE 5 MG PO ×2 (12:26→20:47)
--- NOTE | 2024-08-18 13:11 | W.PN.HOSP.TC ---
Addendum entered and electronically signed by Vinny Martin MD 08/18/24 17:40:
Seen and examined by me independently in collaboration with the medical records assistant.
Lab data and imaging data reviewed.
Addendum as below :
Improving diarrhea but has seen some blood in the stool he says today. No nausea vomiting. Poor appetite. Tolerating some diet.
Denies any shortness of breath.
Patient initiated on steroids for possible colitis as an immune related adverse drug reaction. Follow the response of steroids and diarrhea.
Complains of headache which is chronic. Has been having them for many months. Has seen a neurologist in [place]. Unclear if related to his cancer treatments or primary headache syndrome. Continue with symptomatic treatments for now and
follow-up. If no improvement will consider neurology eval.
Original Note:
Today's Communication/Plan
-
start on low residue diet
Add PPI
Assessment / Plan
Assessment / Plan
Impression
74-year-old male with past medical history of metastatic melanoma with lung mets, recently discharged on August 15, 2024 after being managed with steroids for SIRS from immune mediated reactions to Opdualag. He follows up at [facility]
with Dr. Lauri Perales and was readmitted with headache, blurred vision, decreased appetite, and 1 episode of [address]
CT abdomen pelvis showed enteritis, placed on steroids and is feeling better today.
He denies any shortness of breath, palpitations, abdominal pain, nausea, vomiting, constipation, burning micturition, or changes in mental status.
Assessment/plan
Immun therapy related systemic complications
Presented with one episode of diarrhea at home with and body aches
Decreased appetite and weakness
#1.Abd/Pelvis CT: 08/17/2024
No findings to suggest central pulmonary embolism.
Small anterior pericardial effusion.
Small gastric diverticulum again seen.
Prominent gallbladder with at least one gallstone again identified. No findings to suggest biliary tract dilatation.
Fluid-filled stomach, fluid-filled loops of small bowel, some fluid-filled loops of large bowel as well as some small and large bowel wall enhancement,, few air-fluid levels, overall
Enteritis/chronic functional diarrhea
His oncologist at [place] believes that it could be delayed inflammatory response to immunotherapy
Oncology consult appreciated
Patient to be treated with steroid stress dose
Patient responded well to steroids and has been improving
Follow-up with oncology at [facility]
#2. Possible ADALI
Patient had serum creatinine of 1.6 on admission most likely secondary to decreased perfusion urea creatinine ratio greater than 20
Patient receiving normal saline at 100 mL/h
Fresh creatinine 1.1
Monitor BMP
Encourage patient for oral intake of fluids
#3Hypokalemia
Patient's potassium on admission was 3.1
Give 40 mEq replacement
Potassium today is 4.2
Monitor BMP
#4Non-ischemic myocardial injury
Patient had no signs and symptoms of chest pain, syncope, shortness of breath
On admission in the ED the drop I was raised to 0.043
On trending drop I they have been trending down
Monitor
#5metastatic melanoma on immunotherapy
#severe peripheral neuropathy
Currently treated @ [facility] by Dr. Lauri Perales
-Patient is on hydrocortisone 30 mg at home
Due to the worsening pain and symptoms patient started on prednisone 50 mg
Continue to monitor and taper dose as tolerated
Other medical conditions
#COPD
- continue albuterol HFA PRN, and Ellipta
#HFmrEF
#severe mitral regurgitation- hold furosemide
- continue carvedilol
- monitor daily weights and I&O's
#hypothyroidism- continue levothyroxine
#chronic headaches/migraines - continue amitriptyline-if persist can go for Neuro opinion
#adrenal insufficiency
#chronic/functional diarrhea
Code status: Full Code
DVT Prophylaxis: Lovenox Sq
Anticipated Discharge: 24 - 48 hours
Subjective/Interval History
-
Date of Service: August 18, 2024
Complains of headache, blurred vision, generalized body aches and feels anxious regarding his condition
Objective Data
-
Labs:
Laboratory Results
08/18/24
07:56
WBC 10.6
Hgb 11.2 L D
Hct 34.8 L
Plt Count 380
Sodium 133 L
Potassium 4.2 D
Chloride 104
Carbon Dioxide 18 L
BUN 23 H
Creatinine 1.1
Glucose 115 H
Calcium 7.9 L
Vital Signs:
Vital Signs
Temp Pulse Resp BP Pulse Ox
98.6 F 82 18 118/64 96
08/18/24 11:49 08/18/24 11:49 08/18/24 11:49 08/18/24 11:49 08/18/24 11:49
I&O
08/17/24 08/18/24 08/19/24
06:59 06:59 06:59
Intake Total 1800 / 1800
Output Total 450 / 450
Balance 1350 / 1350
Review of Systems
-
All other systems: Reviewed and negative
Physical Exam
-
General: Well Developed and Well Nourished
HEENT: Normocephalic, Atraumatic, Anicteric and Other (Swelling below eyelids )
Respiratory: Clear to Auscultation
Cardiac: Regular Rhythm, S1/S2 and Tachycardic
GI: Soft, Nontender, Nondistended and Normal Bowel Sounds
Musculoskeletal: No Clubbing, No Cyanosis and No Edema
Skin: Warm and Dry
Neuro: Awake, Oriented and No Motor Deficits
Psych: Anxious
[2024-08-18 15:30] VITALS: BP 113/61
[2024-08-18 16:23] VITALS: BMI 25.4
[2024-08-18 19:29] VITALS: BP 121/66
[2024-08-18] MEDS: LOVENOX 40 MG SC (20:50)
[2024-08-18] MEDS: ELAVIL 20 MG PO (20:51)
[2024-08-18] MEDS: NORVASC 2.5 MG PO (20:51)
[2024-08-18 23:37] VITALS: BP 112/67
[2024-08-18] MEDS: REFRESH EYE DROPS (PF) OPHTH (23:51)
[2024-08-19] MEDS: NSS 1000 IV (01:07)
[2024-08-19] MEDS: TYLENOL 650 MG PO ×2 (01:09→12:41)
[2024-08-19 03:16] VITALS: BP 105/57
[2024-08-19] MEDS: SYNTHROID 137 MCG PO (05:59)
[2024-08-19 06:00] VITALS: BMI 25.9
[2024-08-19 07:40] VITALS: BP 134/71
--- NOTE | 2024-08-19 07:40 | CM ---
late note; Patient seen at bedside. Patient confirmed that Dr. Ma is his PCP and he uses [facility] on [facility] in [place] for pharmacy needs. Patient has applied to [employer] for aides in the past and stated that he had been approved but he
was uncertain about what would be started. Patient also stated that he had been at [facility] in the past for 12 days but did not want to return there. Patient home is on a second floor converted barn with 17 steps to enter . He states that he
is independent in all activities of daily living. He does not drive. CM will continue to follow for discharge planning needs.
Plan; restart [facility]; tt to liaison
[2024-08-19] MEDS: FLOVENT 44 MCG INHALER 2 PUFF INH ×2 (08:01→20:16)
[2024-08-19] MEDS: STRIVERDI RESPIMAT 2 PUFF INH (08:02)
[2024-08-19] MEDS: SPIRIVA RESPIMAT 2.5 MCG 2 PUFF INH (08:02)
[2024-08-19 08:08] LABS: Hematocrit 28.3 % (39.0-52.0); Hemoglobin 9.5 g/dL (13.0-18.0); Mean Corp Hgb Conc. 33.6 g/dL (33.0-37.0); Mean Corpuscular Hgb 29.7 pg (27.0-31.0); Mean Corpuscular Volume 88.4 fL (80.0-94.0); Mean Platelet Volume 9.4 fL (7.4-10.4); Platelet Count 328 10^3/uL (130-400); Red Cell Dist. Width 13.5 % (11.5-14.5); White Blood Cell Count 7.9 10^3/uL (4.8-10.8)
[2024-08-19 08:11] LABS: Blood Urea Nitrogen 17 mg/dl (9-20); Carbon Dioxide 19 mmol/L (22-30); Chloride 106 mmol/L (98-107); Estimated Creatinine Clearance 65 ml/min; Glucose 132 mg/dl (70-99); Magnesium 1.9 mg/dl (1.6-2.3); Potassium 3.8 mmol/L (3.5-5.1); Sodium 132 mmol/L (135-145); eGFR > 60.00
[2024-08-19] MEDS: NEURONTIN 600 MG PO ×2 (09:07→20:05)
[2024-08-19] MEDS: DELTASONE 50 MG PO (09:07)
[2024-08-19] MEDS: VITAMIN B1 100 MG PO (09:07)
[2024-08-19] MEDS: ZINC 50 MG PO (09:08)
[2024-08-19] MEDS: PROTONIX 40 MG PO (09:08)
[2024-08-19] MEDS: LIPITOR 40 MG PO (09:09)
[2024-08-19] MEDS: VITAMIN D3 (cholecalciferol) 25 MCG PO (09:09)
[2024-08-19] MEDS: VITAMIN B-12 1000 MCG PO (09:09)
[2024-08-19] MEDS: COREG 3.125 MG PO ×2 (09:09→20:05)
[2024-08-19] MEDS: REFRESH EYE DROPS (PF) 1 DROPS OPHTH ×4 (09:10→21:26)
[2024-08-19 10:27] LABS: Absolute Neutrophils -Man Diff 5.9 10^3/uL (1.4-6.5); Band Neutrophils 21 % (0-3); Lymphocytes 13 % (20-51); Metamyelocytes 3 % (-); Monocytes 7 % (2-9); Myelocytes 2 % (-); Segmented Neutrophils 54 % (42-75)
[2024-08-19 10:28] LABS: Anisocytosis 1+; Hypochromasia 1+; Normal RBC Morphology No; Ovalocytes 1+; Platelets Checked Yes; Polychromasia 1+; Total Cells Counted 100
[2024-08-19 11:27] VITALS: BP 121/74
--- NOTE | 2024-08-19 12:23 | W.PN.ONC ---
Today's Communication / Plan
-
-cont prednisone
-supportive care
- offered follow-up in our office as he expressed some desire to be treated locally
-f/u at [facility] w/Dr. Lauri Perales
Impression
Impression
metastatic melanoma
diarrhea
Subjective/Objective
Subjective/Objective
Patient states that he has had much less frequent bowel movements today.
Vital Signs:
Vital Signs
Temp Pulse Resp BP Pulse Ox
97.7 F 80 18 121/74 97
08/19/24 11:27 08/19/24 11:27 08/19/24 11:27 08/19/24 11:27 08/19/24 11:27
unchanged
Lab Results:
Laboratory Data
WBC 7.9 10^3/uL (4.8-10.8) 08/19/24 07:05
Hgb 9.5 g/dL (13.0-18.0) L 08/19/24 07:05
Plt Count 328 10^3/uL (130-400) 08/19/24 07:05
eGFR > 60.00 08/19/24 07:05
[2024-08-19] MEDS: COMPAZINE 10 MG PO (12:40)
--- NOTE | 2024-08-19 13:52 | W.PN.HOSP.TC ---
Today's Communication/Plan
-
CW steroids
Follow blood in stools and HH
Assessment / Plan
Assessment / Plan
Impression
74-year-old male with past medical history of metastatic melanoma with lung mets, recently discharged on August 15, 2024 after being managed with steroids for SIRS from immune mediated reactions to Opdualag. He follows up at [facility]
with Dr. Lauri Perales and was readmitted with headache, blurred vision, decreased appetite, and 1 [address]
CT abdomen pelvis showed enteritis, placed on steroids and is feeling better today.
He denies any shortness of breath, palpitations, abdominal pain, nausea, vomiting, constipation, burning micturition, or changes in mental status.
Assessment/plan
Immun therapy related systemic complications
Presented with one episode of diarrhea at home with and body aches
Decreased appetite and weakness
#1.Abd/Pelvis CT: 08/17/2024
No findings to suggest central pulmonary embolism.
Small anterior pericardial effusion.
Small gastric diverticulum again seen.
Prominent gallbladder with at least one gallstone again identified. No findings to suggest biliary tract dilatation.
Fluid-filled stomach, fluid-filled loops of small bowel, some fluid-filled loops of large bowel as well as some small and large bowel wall enhancement,, few air-fluid levels, overall
Enteritis/chronic functional diarrhea
His oncologist at [place] believes that it could be delayed inflammatory response to immunotherapy
Oncology consult appreciated
Patient to be treated with steroid stress dose
Patient responded well to steroids and has been improving. Follow blood in stools and HH. If any worse will get GI to see.
Follow-up with oncology at [facility]
#2. Possible ADALI
Patient had serum creatinine of 1.6 on admission most likely secondary to decreased perfusion urea creatinine ratio greater than 20
Patient receiving normal saline at 100 mL/h
Fresh creatinine 1.0
Monitor BMP
Encourage patient for oral intake of fluids
#3Hypokalemia
Patient's potassium on admission was 3.1
Give 40 mEq replacement
Potassium today is 3.8
Monitor BMP
#4Non-ischemic myocardial injury
Patient had no signs and symptoms of chest pain, syncope, shortness of breath
On admission in the ED the drop I was raised to 0.043
On trending drop I they have been trending down
Monitor
#5metastatic melanoma on immunotherapy
#severe peripheral neuropathy
Currently treated @ [facility] by Dr. Lauri Perales
-Patient is on hydrocortisone 30 mg at home
Due to the worsening pain and symptoms patient started on prednisone 50 mg
Continue to monitor and taper dose as tolerated
Other medical conditions
#COPD
- continue albuterol HFA PRN, and Ellipta
#HFmrEF
#severe mitral regurgitation- hold furosemide
- continue carvedilol
- monitor daily weights and I&O's
#hypothyroidism- continue levothyroxine
#chronic headaches/migraines - continue amitriptyline-if persist can go for Neuro opinion
#adrenal insufficiency
#chronic/functional diarrhea
Code status: Full Code
DVT Prophylaxis: Lovenox Sq
Anticipated Discharge: 24 - 48 hours
Subjective/Interval History
-
Date of Service: August 19, 2024
Patient with some abdominal discomfort but able to tolerate diet. His abdominal discomfort is most in the left upper quadrant. He also has loose stools and some blood.
No fever chills.
No trouble with the breathing. Headache is okay with medication.
Improved eye symptoms
Objective Data
-
Labs:
Laboratory Results
08/19/24
07:05
WBC 7.9
Hgb 9.5 L
Hct 28.3 L
Plt Count 328
Sodium 132 L
Potassium 3.8
Chloride 106
Carbon Dioxide 19 L
BUN 17
Creatinine 1.0
Glucose 132 H
Calcium 8.0 L
Vital Signs:
Vital Signs
Temp Pulse Resp BP Pulse Ox
97.7 F 80 18 121/74 97
08/19/24 11:27 08/19/24 11:27 08/19/24 11:27 08/19/24 11:27 08/19/24 11:27
I&O
08/18/24 08/19/24 08/20/24
06:59 06:59 06:59
Intake Total 1800 / 1800 1960 / 1960
Output Total 450 / 450 450 / 450
Balance 1350 / 1350 1510 / 1510
Physical Exam
-
General: No Apparent Distress
Respiratory: Non Labored Respirations; Negative Accessory Resp Muscle Use
GI: Soft, Nontender, Nondistended and Normal Bowel Sounds
Neuro: AO x 3
Psych: Calm
Data Reviewed
-
Labs: Labs Reviewed by me
[2024-08-19 15:57] VITALS: BP 126/73
[2024-08-19] MEDS: LOVENOX 40 MG SC (18:02)
[2024-08-19 19:37] VITALS: BP 128/65
[2024-08-19] MEDS: ELAVIL 20 MG PO (20:09)
[2024-08-19] MEDS: NORVASC 2.5 MG PO (20:10)
[2024-08-19 23:15] VITALS: BP 113/66
[2024-08-20 03:25] VITALS: BP 123/79
[2024-08-20 06:00] VITALS: BMI 25.6
[2024-08-20] MEDS: SYNTHROID 137 MCG PO (06:05)
[2024-08-20] MEDS: TYLENOL 650 MG PO ×2 (06:12→17:25)
[2024-08-20] MEDS: ROXICODONE 5 MG PO ×2 (06:13→15:42)
[2024-08-20] MEDS: ZINC 50 MG PO (07:54)
[2024-08-20] MEDS: NEURONTIN 600 MG PO ×2 (07:54→20:52)
[2024-08-20] MEDS: LIPITOR 40 MG PO (07:54)
[2024-08-20] MEDS: COREG 3.125 MG PO ×2 (07:54→20:51)
[2024-08-20] MEDS: VITAMIN D3 (cholecalciferol) 25 MCG PO (07:54)
[2024-08-20] MEDS: VITAMIN B-12 1000 MCG PO (07:54)
[2024-08-20] MEDS: PROTONIX 40 MG PO ×2 (07:54→20:52)
[2024-08-20] MEDS: DELTASONE 50 MG PO (07:55)
[2024-08-20] MEDS: REFRESH EYE DROPS (PF) 1 DROPS OPHTH ×4 (07:55→20:51)
[2024-08-20 07:56] LABS: Blood Urea Nitrogen 19 mg/dl (9-20); Calcium 8.1 mg/dl (8.4-10.2); Carbon Dioxide 20 mmol/L (22-30); Chloride 108 mmol/L (98-107); Estimated Creatinine Clearance 72 ml/min; Glucose 122 mg/dl (70-99); Potassium 3.7 mmol/L (3.5-5.1); Sodium 133 mmol/L (135-145); eGFR > 60.00
[2024-08-20] MEDS: SPIRIVA RESPIMAT 2.5 MCG 2 PUFF INH (07:58)
[2024-08-20] MEDS: FLOVENT 44 MCG INHALER 2 PUFF INH ×2 (07:58→19:39)
[2024-08-20] MEDS: STRIVERDI RESPIMAT 2 PUFF INH (07:58)
[2024-08-20] MEDS: VITAMIN B1 100 MG PO (08:03)
[2024-08-20 08:09] VITALS: BP 108/86
[2024-08-20 08:25] LABS: Hematocrit 31.5 % (39.0-52.0); Hemoglobin 10.6 g/dL (13.0-18.0); Mean Corp Hgb Conc. 33.7 g/dL (33.0-37.0); Mean Corpuscular Hgb 29.6 pg (27.0-31.0); Mean Platelet Volume 9.4 fL (7.4-10.4); Platelet Count 397 10^3/uL (130-400); Red Blood Cell Count 3.58 10^6/uL (4.70-6.10); Red Cell Dist. Width 13.3 % (11.5-14.5); White Blood Cell Count 12.4 10^3/uL (4.8-10.8)
[2024-08-20 11:08] VITALS: BP 131/74
[2024-08-20 15:08] VITALS: BP 130/70
--- NOTE | 2024-08-20 15:27 | W.PN.HOSP.TC ---
Today's Communication/Plan
-
Increase PPI. Add MiraLAX. Continue with steroids
DC planning
Assessment / Plan
Assessment / Plan
Impression
74-year-old male with past medical history of metastatic melanoma with lung mets, recently discharged on August 15, 2024 after being managed with steroids for SIRS from immune mediated reactions to Opdualag. He follows up at [facility]
with Dr. Lauri Perales and was readmitted with headache, blurred vision, decreased appetite, and 1 episode [address]
CT abdomen pelvis showed enteritis, placed on steroids and is feeling better today.
He denies any shortness of breath, palpitations, abdominal pain, nausea, vomiting, constipation, burning micturition, or changes in mental status.
Assessment/plan
Immun therapy related systemic complications
Presented with one episode of diarrhea at home with and body aches
Decreased appetite and weakness
#Abd/Pelvis CT: 08/17/2024
No findings to suggest central pulmonary embolism.
Small anterior pericardial effusion.
Small gastric diverticulum again seen.
Prominent gallbladder with at least one gallstone again identified. No findings to suggest biliary tract dilatation.
Fluid-filled stomach, fluid-filled loops of small bowel, some fluid-filled loops of large bowel as well as some small and large bowel wall enhancement,, few air-fluid levels, overall
Enteritis/chronic functional diarrhea
His oncologist at [place] believes that it could be delayed inflammatory response to immunotherapy
Oncology consult appreciated
Patient to be treated with steroid stress dose
Patient responded well to steroids and has been improving. Follow blood in stools and HH-H&H stable. More formed stools now..
Follow-up with oncology at [facility]
Suspect dyspeptic symptoms-increase Protonix to twice a day and use as needed Maalox
-Suspect leukocytosis may be secondary to steroids. Afebrile.
#Possible ADALI
Patient had serum creatinine of 1.6 on admission most likely secondary to decreased perfusion urea creatinine ratio greater than 20
Patient receiving normal saline at 100 mL/h
Improved creatinine
Monitor BMP
Encourage patient for oral intake of fluids
#Non-ischemic myocardial injury
Patient had no signs and symptoms of chest pain, syncope, shortness of breath
On admission in the ED the drop I was raised to 0.043
On trending drop I they have been trending down
Monitor
#metastatic melanoma on immunotherapy
#severe peripheral neuropathy
Currently treated @ [facility] by Dr. Lauri Perales
-Patient is on hydrocortisone 30 mg at home
Due to the worsening pain and symptoms patient started on prednisone 50 mg
Continue to monitor and taper dose as tolerated
Other medical conditions
#COPD
- continue albuterol HFA PRN, and Ellipta
#HFmrEF
#severe mitral regurgitation- hold furosemide
- continue carvedilol
- monitor daily weights and I&O's
#hypothyroidism- continue levothyroxine
#chronic headaches/migraines - continue amitriptyline-if persist can go for Neuro opinion
#adrenal insufficiency
#chronic/functional diarrhea
Code status: Full Code
DVT Prophylaxis: Lovenox Sq
Anticipated Discharge: Within 24 hours
Subjective/Interval History
-
Date of Service: August 20, 2024
Less diarrhea. More formed stool.
He does complain of upper epigastric area pain with heartburn, reflux and a lot of gas. Denies any prior history of peptic ulcer disease. He has Nexium at home uses as needed.
No fever chills.
Objective Data
-
Labs:
Laboratory Results
08/20/24
07:07
WBC 12.4 H
Hgb 10.6 L
Hct 31.5 L
Plt Count 397 D
Sodium 133 L
Potassium 3.7
Chloride 108 H
Carbon Dioxide 20 L
BUN 19
Creatinine 0.9
Glucose 122 H
Calcium 8.1 L
Vital Signs:
Vital Signs
Temp Pulse Resp BP Pulse Ox
98.1 F 70 19 130/70 97
08/20/24 15:08 08/20/24 15:08 08/20/24 15:08 08/20/24 15:08 08/20/24 15:08
I&O
08/19/24 08/20/24 08/21/24
06:59 06:59 06:59
Intake Total 1960 / 1960 480 / 480
Output Total 450 / 450 900 / 900
Balance 1510 / 1510 -420 / -420
Review of Systems
-
Respiratory: Denies Trouble Breathing
Cardiac: Denies Chest Pain
Neuro: Denies Dizzy
Physical Exam
-
General: No Apparent Distress
HEENT: Moist Mucous Membranes
Respiratory: Clear to Auscultation
Cardiac: Regular Rhythm and S1/S2
GI: Soft, Nondistended, Normal Bowel Sounds and Tender (Epigastric area, no rebound guarding or rigidity.)
Neuro: AO x 3
Data Reviewed
-
Labs: Labs Reviewed by me
[2024-08-20] MEDS: LOVENOX 40 MG SC (17:20)
[2024-08-20 19:45] VITALS: BP 121/65
[2024-08-20] MEDS: NORVASC 2.5 MG PO (20:51)
[2024-08-20] MEDS: ELAVIL 20 MG PO (20:52)
[2024-08-20 23:30] VITALS: BP 130/72
[2024-08-21 03:04] VITALS: BP 106/61
[2024-08-21 06:00] VITALS: BMI 25.4
[2024-08-21] MEDS: SYNTHROID 137 MCG PO (06:09)
[2024-08-21] MEDS: VITAMIN B1 100 MG PO (07:35)
[2024-08-21] MEDS: VITAMIN B-12 1000 MCG PO (07:35)
[2024-08-21] MEDS: PROTONIX 40 MG PO ×2 (07:35→19:35)
[2024-08-21] MEDS: NEURONTIN 600 MG PO ×2 (07:35→19:35)
[2024-08-21] MEDS: DELTASONE 50 MG PO (07:35)
[2024-08-21] MEDS: VITAMIN D3 (cholecalciferol) 25 MCG PO (07:35)
[2024-08-21] MEDS: COREG 3.125 MG PO ×2 (07:35→19:35)
[2024-08-21] MEDS: ZINC 50 MG PO (07:35)
[2024-08-21] MEDS: LIPITOR 40 MG PO (07:36)
[2024-08-21] MEDS: REFRESH EYE DROPS (PF) 1 DROPS OPHTH ×4 (07:36→22:05)
[2024-08-21 07:42] VITALS: BP 134/67
[2024-08-21] MEDS: STRIVERDI RESPIMAT 2 PUFF INH (08:11)
[2024-08-21] MEDS: FLOVENT 44 MCG INHALER 2 PUFF INH ×2 (08:11→20:00)
[2024-08-21] MEDS: SPIRIVA RESPIMAT 2.5 MCG 2 PUFF INH (08:12)
[2024-08-21 09:02] LABS: Hematocrit 34.2 % (39.0-52.0); Hemoglobin 11.7 g/dL (13.0-18.0); Mean Corp Hgb Conc. 34.2 g/dL (33.0-37.0); Mean Corpuscular Hgb 30.2 pg (27.0-31.0); Mean Corpuscular Volume 88.1 fL (80.0-94.0); Mean Platelet Volume 9.9 fL (7.4-10.4); Platelet Count 440 10^3/uL (130-400); Red Blood Cell Count 3.88 10^6/uL (4.70-6.10); Red Cell Dist. Width 13.5 % (11.5-14.5); White Blood Cell Count 16.6 10^3/uL (4.8-10.8)
[2024-08-21] MEDS: ROXICODONE 5 MG PO ×3 (10:07→23:17)
[2024-08-21 10:38] VITALS: BP 136/67
--- NOTE | 2024-08-21 10:57 | CM ---
Continues on steroids po.
As per nursing note pt self ambulation in room .
Referral for [facility] in care port. Pt was accepted.
PLAN Home with [facility]
--- NOTE | 2024-08-21 13:18 | PN.CDI ---
CDI
- -
CDI:
Physician Documentation Request
Admit Date: 08/17/24 15:33
Dear Doctor Mario,
Patient admitted for immunotherapy related systemic complications.
Sodium results:
Laboratory Tests
08/17/24 08/18/24 08/19/24
11:24 07:56 07:05
Sodium 135 133 L 132 L
08/20/24
07:07
Sodium 133 L
Could you please provide a diagnosis supports the above lab abnormalities and additional evaluation/ monitoring
Hyponatremia
abnormal lab value clinically insignificant
Other
Use of terms such as suspected, likely, concern for, or probable (associated with a specific diagnosis that is being evaluated, monitored, or treated as if it exists) are acceptable and can be coded in the inpatient setting, when documented at the
time of discharge.
Thank you,
Lillie Maciel RN, BSN
CDI Specialist
tiger text
Please use your independent medical judgment in providing your response.
[2024-08-21] MEDS: MAALOX 30 ML PO ×2 (13:26→19:41)
--- NOTE | 2024-08-21 14:47 | W.PN.HOSP.TC ---
Today's Communication/Plan
-
CT of the abdomen pelvis
Ultrasound of the right leg
Follow BMP.
Repeat CBC in a.m.
Assessment / Plan
Assessment / Plan
Impression
74-year-old male with past medical history of metastatic melanoma with lung mets, recently discharged on August 15, 2024 after being managed with steroids for SIRS from immune mediated reactions to Opdualag. He follows up at [facility]
with Dr. Lauri Perales and was readmitted with headache, blurred vision, decreased appetite, and 1 episode of [address]
CT abdomen pelvis showed enteritis, placed on steroids and is feeling better today.
He denies any shortness of breath, palpitations, abdominal pain, nausea, vomiting, constipation, burning micturition, or changes in mental status.
Assessment/plan
Immun therapy related systemic complications
Presented with one episode of diarrhea at home with and body aches
Decreased appetite and weakness
#Abd/Pelvis CT: 08/17/2024
No findings to suggest central pulmonary embolism.
Small anterior pericardial effusion.
Small gastric diverticulum again seen.
Prominent gallbladder with at least one gallstone again identified. No findings to suggest biliary tract dilatation.
Fluid-filled stomach, fluid-filled loops of small bowel, some fluid-filled loops of large bowel as well as some small and large bowel wall enhancement,, few air-fluid levels, overall
Enteritis/chronic functional diarrhea
His oncologist at [place] believes that it could be delayed inflammatory response to immunotherapy
Oncology consult appreciated
Patient to be treated with steroid stress dose
Patient responded well to steroids and has been improving. More formed stools now and no diarrhea. HH stable
Follow-up with oncology at [facility]
Suspect dyspeptic symptoms-increase Protonix to twice a day and use as needed Maalox
-Suspect leukocytosis may be secondary to steroids. Afebrile.
# Recurrent abdo pain
Patient has recurrence of abdominal pain more focused in the epigastric area. He also feels bloated. Clinically he is distended with epigastric pain. Unclear if this is persistence of enteritis or developing ileus. Tolerating clears. No
vomiting.
Will get a CT of the abdomen pelvis to follow-up.
#Right leg pain. Right calf is also swollen and tender-get an ultrasound of the leg.
#Possible ADALI
Patient had serum creatinine of 1.6 on admission most likely secondary to decreased perfusion urea creatinine ratio greater than 20
Patient receiving normal saline at 100 mL/h
Normalized creatinine
Monitor BMP
Encourage patient for oral intake of fluids
NSS prophylaxis for repeat CT A/P today
#Non-ischemic myocardial injury
Patient had no signs and symptoms of chest pain, syncope, shortness of breath
On admission in the ED the drop I was raised to 0.043
On trending drop I they have been trending down
Monitor
#metastatic melanoma on immunotherapy
#severe peripheral neuropathy
Currently treated @ [facility] by Dr. Lauri Perales
-Patient is on hydrocortisone 30 mg at home
Due to the worsening pain and symptoms patient started on prednisone 50 mg
Continue to monitor and taper dose as tolerated
Other medical conditions
#COPD
- continue albuterol HFA PRN, and Ellipta
#HFmrEF
#severe mitral regurgitation- hold furosemide
- continue carvedilol
- monitor daily weights and I&O's
#hypothyroidism- continue levothyroxine
#chronic headaches/migraines - continue amitriptyline-if persist can go for Neuro opinion
#adrenal insufficiency
#chronic/functional diarrhea
Code status: Full Code
DVT Prophylaxis: Lovenox Sq
DW RN
Total time spent on today's encounter was 52 minutes which included time spent in counseling the patient/family regarding diagnosis and treatment plan as listed above, goals of care, and symptom management. Case was discussed with nursing staff,
specialists, and care coordinators/case management. All labs and imaging personally reviewed by me. Remainder the time spent in detailed review of previous records, lab data, imaging, and other medical provider documentation.
Anticipated Discharge: > 48 hours
Subjective/Interval History
-
Date of Service: August 21, 2024
No further diarrhea. In fact no bowel movement today.
He feels bloated. He still has persistent upper epigastric area pain which seems to worsen. Tolerating clear liquids. Not much appetite. No fever or chills.
He also feels generally achy everywhere again. His right calf and behind the knee is painful.
Objective Data
-
Labs:
Laboratory Results
08/21/24 08/21/24
07:32 08:30
WBC Cancelled 16.6 H
Hgb Cancelled 11.7 L
Hct Cancelled 34.2 L
Plt Count Cancelled 440 H
Vital Signs:
Vital Signs
Temp Pulse Resp BP Pulse Ox
98.5 F 79 20 136/67 97
08/21/24 10:38 08/21/24 10:38 08/21/24 10:38 08/21/24 10:38 08/21/24 10:38
I&O
08/20/24 08/21/24 08/22/24
06:59 06:59 06:59
Intake Total 480 / 480 1320 / 1320
Output Total 900 / 900 300 / 300
Balance -420 / -420 1320 / 1320 -300 / -300
Review of Systems
-
Constitutional: Denies Fever
EENT: Denies Sore Throat
Respiratory: Denies Cough or Trouble Breathing
Cardiac: Denies Chest Pain
Abdomen/GI: Reports Abdominal Pain
Neuro: Denies Dizzy
Physical Exam
-
Respiratory: Clear to Auscultation (Anteriorly) and Non Labored Respirations; Negative Accessory Resp Muscle Use
Cardiac: Regular Rhythm and S1/S2; Negative Tachycardic
GI: Soft, Tender (epigastric area) and Distended; Negative Normal Bowel Sounds (hypoactive)
Neuro: AO x 3
Psych: Calm; Negative Confused
Data Reviewed
-
Labs: Labs Reviewed by me
[2024-08-21] MEDS: NSS 1000 IV (15:47)
[2024-08-21] MEDS: OMNIPAQUE 50 ML PO (16:19)
[2024-08-21 16:23] VITALS: BP 128/76
[2024-08-21] MEDS: LOVENOX 40 MG SC (17:10)
[2024-08-21] MEDS: TYLENOL 650 MG PO ×2 (19:41→23:17)
[2024-08-21 19:50] VITALS: BP 116/71
[2024-08-21] MEDS: ELAVIL 20 MG PO (22:05)
[2024-08-21] MEDS: MELATONIN 3 MG PO (22:05)
[2024-08-21] MEDS: NORVASC 2.5 MG PO (22:05)
[2024-08-21 23:31] VITALS: BP 134/75
[2024-08-22 03:11] VITALS: BP 114/65
[2024-08-22 06:00] VITALS: BMI 25.3
[2024-08-22] MEDS: SYNTHROID 137 MCG PO (06:02)
[2024-08-22] MEDS: ROXICODONE 5 MG PO ×3 (06:06→19:26)
[2024-08-22] MEDS: TYLENOL 650 MG PO ×3 (06:07→19:26)
[2024-08-22] MEDS: MAALOX 30 ML PO (06:08)
[2024-08-22] MEDS: STRIVERDI RESPIMAT 2 PUFF INH (07:26)
[2024-08-22] MEDS: SPIRIVA RESPIMAT 2.5 MCG 2 PUFF INH (07:26)
[2024-08-22] MEDS: FLOVENT 44 MCG INHALER 2 PUFF INH ×2 (07:26→20:44)
[2024-08-22 07:58] VITALS: BP 107/66
[2024-08-22] MEDS: DELTASONE 50 MG PO (08:08)
[2024-08-22] MEDS: VITAMIN B1 100 MG PO (08:08)
[2024-08-22] MEDS: NEURONTIN 600 MG PO ×2 (08:08→19:27)
[2024-08-22] MEDS: PROTONIX 40 MG PO ×2 (08:09→19:27)
[2024-08-22] MEDS: ZINC 50 MG PO (08:09)
[2024-08-22] MEDS: COREG 3.125 MG PO ×2 (08:09→19:50)
[2024-08-22] MEDS: VITAMIN B-12 1000 MCG PO (08:09)
[2024-08-22] MEDS: LIPITOR 40 MG PO (08:10)
[2024-08-22] MEDS: VITAMIN D3 (cholecalciferol) 25 MCG PO (08:10)
[2024-08-22] MEDS: REFRESH EYE DROPS (PF) 1 DROPS OPHTH ×4 (08:10→23:20)
[2024-08-22] MEDS: COMPAZINE 10 MG PO ×2 (08:16→16:11)
[2024-08-22 08:19] LABS: Hematocrit 34.5 % (39.0-52.0); Hemoglobin 11.8 g/dL (13.0-18.0); Mean Corp Hgb Conc. 34.2 g/dL (33.0-37.0); Mean Corpuscular Hgb 30.3 pg (27.0-31.0); Mean Corpuscular Volume 88.5 fL (80.0-94.0); Mean Platelet Volume 10.8 fL (7.4-10.4); Platelet Count 329 10^3/uL (130-400); Red Cell Dist. Width 13.6 % (11.5-14.5); White Blood Cell Count 13.8 10^3/uL (4.8-10.8)
--- NOTE | 2024-08-22 08:45 | W.PN.ONC2 ---
Today's Communication / Plan
-
OP prednisone management per primary oncologist
Impression
Impression
metastatic melanoma -on opdualag -resumed monthly Opdualag on 06/14/24 after 8 month tx holiday, last received 08/11
ICI toxicities with myalgias, neuropathies, endocrinopathies
diarrhea/enteritis/colitis -improved from 08/[address]
Large complex fluid collection in the medial soft tissues, possible hematoma or complex seroma
ocular toxicity with pain and difficulty seeing -management per optho
Plan
Plan
1. Metastatic melanoma - immunotherapy induced diarrhea
-cont prednisone
-supportive care
-follow clinically
-f/u at [facility] w/Dr. Lauri Perales
Subjective/Objective
Subjective
no new complaints
He is using amitriptyline, gabapentin, and oxy IR for pain management
no further diarrhea, ab TTP
Vital Signs:
Vital Signs
Temp Pulse Resp BP Pulse Ox
98.3 F 71 20 107/66 97
08/22/24 07:58 08/22/24 07:58 08/22/24 07:58 08/22/24 07:58 08/22/24 07:58
Lab Results:
Laboratory Data
WBC 13.8 10^3/uL (4.8-10.8) H 08/22/24 07:15
Hgb 11.8 g/dL (13.0-18.0) L 08/22/24 07:15
Plt Count 329 10^3/uL (130-400) D 08/22/24 07:15
eGFR > 60.00 08/20/24 07:07
Physical Exam
HEENT: Moist Mucous Membranes; No Jaundice
Cardiology: Normal Sinus Rhythm
Pulmonary: Clear
GI: Soft and Other (general TTP)
Extremities: Pulses Present and Edema
Neuro: Non Focal
[2024-08-22 08:52] LABS: Blood Urea Nitrogen 18 mg/dl (9-20); Calcium 8.2 mg/dl (8.4-10.2); Carbon Dioxide 24 mmol/L (22-30); Chloride 102 mmol/L (98-107); Estimated Creatinine Clearance 72 ml/min; Glucose 99 mg/dl (70-99); Potassium 4.1 mmol/L (3.5-5.1); Sodium 131 mmol/L (135-145); eGFR > 60.00
[2024-08-22 11:18] VITALS: BP 113/63
--- NOTE | 2024-08-22 13:12 | CM ---
Chart reviewed and plan is to home with [facility] when stable.
Plan; Home with [facility]
--- NOTE | 2024-08-22 14:41 | W.PN.HOSP.TC ---
Today's Communication/Plan
-
Add pepcid
CW steroids
Consult GI
Assessment / Plan
Assessment / Plan
Impression
74-year-old male with past medical history of metastatic melanoma with lung mets, recently discharged on August 15, 2024 after being managed with steroids for SIRS from immune mediated reactions to Opdualag. He follows up at [facility]
with Dr. Lauri Perales and was readmitted with headache, blurred vision, decreased appetite, and 1 episode of diarrhea.
CT abdomen pelvis showed enteritis, placed on steroids and is feeling better today.
He denies any shortness of breath, palpitations, abdominal pain, nausea, vomiting, constipation, burning micturition, or changes in mental status.
Assessment/plan
Immun therapy related systemic complications
Presented with one episode of diarrhea at home with and body aches
Decreased appetite and weakness
#Abd/Pelvis CT: 08/17/2024
No findings to suggest central pulmonary embolism.
Small anterior pericardial effusion.
Small gastric diverticulum again seen.
Prominent gallbladder with at least one gallstone again identified. No findings to suggest biliary tract dilatation.
Fluid-filled stomach, fluid-filled loops of small bowel, some fluid-filled loops of large bowel as well as some small and large bowel wall enhancement,, few air-fluid levels, overall
Enteritis/chronic functional diarrhea
His oncologist at [facility] believes that it could be delayed inflammatory response to immunotherapy
Oncology consult appreciated
Patient to be treated with steroid stress dose
Patient responded well to steroids and has been improving. More formed stools now and no diarrhea. HH stable
Follow-up with oncology at [facility]
Suspect dyspeptic symptoms-increase Protonix to twice a day and use as needed Maalox
-Suspect leukocytosis may be secondary to steroids. Afebrile.
# Recurrent abdo pain
Patient has recurrence of abdominal pain more focused in the epigastric area. He also feels bloated. Clinically he is distended with epigastric pain. Unclear if this is persistence of enteritis or developing ileus. Tolerating clears. No
vomiting.
CT of the abdomen pelvis-
Wall thickening involving proximal to mid small bowel loops, suggesting enteritis, which appears to be slightly improved from most recent CT of August 17, 2024.
There is also subtle suggestion of wall thickening involving the colon, mainly the right colon and the transverse colon, suggestive of colitis.
Wall thickening involving the sigmoid colon, which could be from inflammatory colitis versus diverticulosis.
No evidence for bowel obstruction. No evidence of free intraperitoneal air.
Suspect his symptoms secondary to dyspepsia. Start Pepcid as well. Consult GI.
#Right leg pain. Right calf is also swollen and tender- ultrasound of the leg shows no DVT but possible hematoma. cw symptomatic tx.
#Possible ADALI
Patient had serum creatinine of 1.6 on admission most likely secondary to decreased perfusion urea creatinine ratio greater than 20
Patient receiving normal saline at 100 mL/h
Normalized creatinine
Monitor BMP
Encourage patient for oral intake of fluids
#Non-ischemic myocardial injury
Patient had no signs and symptoms of chest pain, syncope, shortness of breath
On admission in the ED the drop I was raised to 0.043
On trending drop I they have been trending down
Monitor
#metastatic melanoma on immunotherapy
#severe peripheral neuropathy
Currently treated @ [facility] by Dr. Lauri Perales
-Patient is on hydrocortisone 30 mg at home
Due to the worsening pain and symptoms patient started on prednisone 50 mg
Continue to monitor and taper dose as tolerated
Other medical conditions
#COPD
- continue albuterol HFA PRN, and Ellipta
#HFmrEF
#severe mitral regurgitation- hold furosemide
- continue carvedilol
- monitor daily weights and I&O's
#hypothyroidism- continue levothyroxine
#chronic headaches/migraines - continue amitriptyline-if persist can go for Neuro opinion
#adrenal insufficiency
#chronic/functional diarrhea
Code status: Full Code
DVT Prophylaxis: Lovenox Sq
Anticipated Discharge: 24 - 48 hours
Subjective/Interval History
-
Date of Service: August 22, 2024
No diarrhea. Had 1 stool today.
Lisa complains of upper GI symptoms of heartburn and reflux. Still intermittent mid upper abdominal discomfort. Tolerating some oral intake without vomiting.
Objective Data
-
Labs:
Laboratory Results
08/22/24
07:15
WBC 13.8 H
Hgb 11.8 L
Hct 34.5 L
Plt Count 329 D
Sodium 131 L
Potassium 4.1
Chloride 102
Carbon Dioxide 24
BUN 18
Creatinine 0.9
Glucose 99
Calcium 8.2 L
Vital Signs:
Vital Signs
Temp Pulse Resp BP Pulse Ox
98 F 78 18 113/63 97
08/22/24 11:18 08/22/24 11:18 08/22/24 11:18 08/22/24 11:18 08/22/24 11:18
I&O
08/21/24 08/22/24 08/23/24
06:59 06:59 06:59
Intake Total 1320 / 1320 1440 / 1440
Output Total 1100 / 1100
Balance 1320 / 1320 340 / 340
Review of Systems
-
Constitutional: Denies Fever
EENT: Denies Sore Throat
Respiratory: Denies Cough or Trouble Breathing
Cardiac: Denies Chest Pain
Neuro: Denies Dizzy
Physical Exam
-
General: Comfortable
Respiratory: Non Labored Respirations; Negative Accessory Resp Muscle Use
Cardiac: Regular Rhythm and S1/S2
GI: Soft, Nondistended, Normal Bowel Sounds and Tender (Some discomfort in epigastric area but no rebound guarding or rigidity.)
Neuro: AO x 3
Psych: Calm
Data Reviewed
-
CT Scan: Report Reviewed by me (CT A/P)
Labs: Labs Reviewed by me
[2024-08-22 15:26] VITALS: BP 108/64
[2024-08-22 15:57] LABS: Lipase 69 U/L (23-300)
--- NOTE | 2024-08-22 16:20 | CON.GI ---
Consultation
-
Date/Time Consultation Requested: 08/22/2024
Date/Time Consultation Performed: 08/22/2024
Requesting Provider: Dr. Martin
Performing Provider: Dr. Wright
Reason for Consultation: Enteritis
Medical History
Chief Complaint / HPI
Chief Complaint: Abdominal pain and diarrhea
History of Present Illness:
Shreyas is a 74-year-old male with history of metastatic melanoma to the lungs,s/p resection, axillary LN dissection,recurrence and started on immunotherapy with Opdualag (started may 2023, last dose august 11, 2024) -multiple side effects
including headaches, myositis and neuropathy and , history of adrenal insufficiency on chronic steroids who presented with fever and elevated white count mid July-infectious etiology ruled out and symptoms thought to be secondary to immune
therapy, discharged home and presented to the emergency room again 08/17/2024 with complaints of worsening headache, abdominal discomfort and diarrhea. She reports discomfort in the upper abdomen without any radiation, describes it as a spasm, no
particular association with food but somewhat better with bowel movements. A lot of gas and bloating sensation. No nausea, vomiting, heartburn or trouble swallowing. His bowel pattern is also erratic, he would have couple of loose stool with
incomplete evacuation and sometimes with leakage, may skip a day and then may have semiformed stool after. He will take Imodium as needed, last dose was 2 weeks ago.
Reviewing his records from [facility], patient had transaminitis and had liver biopsy at some point and this was thought to be related to immune therapy and he was treated with steroids and transaminases trended down after. He also has history of
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
2023 with improvement in colitis symptoms. Next injection due August 2024. There is also documentation of history of alcohol abuse.
Reviewing labs, slight leukocytosis, hemoglobin in the range of 10.2-11.8 ,normocytic. CT scan of the abdomen and pelvis with IV contrast 08/17/2024 showing evidence of gallstones, fluid-filled stomach and fluid-filled small bowel and large bowel
suggesting enteritis or ileus. Repeat CT scan of the abdomen and pelvis with IV and oral contrast 08/21/2024 showing wall thickening of the proximal to mid small bowel loops suggesting enteritis but improved compared to previous CT and subtle wall
thickening of the right and mid colon and also sigmoid colon. Single gallstone in the gallbladder.
Norovirus test negative.
Reviewed colonoscopy from [address] Holden for heme positive stool, patient had multiple tubular adenomas that were removed and 2 tubulovillous adenomas removed from the rectum and sigmoid colon.
Past Medical History
Past Medical History: COPD, Hypothyroidism and Other (Metastatic melanoma status postresection and axillary lymph node dissection, adrenal insufficiency)
Past Surgical History: Other (Excision of melanoma and inguinal hernia repairs)
Social History
Tobacco: Former Smoker
Family History
Family History: Reviewed & Not Pertinent
Allergies / Home Medications
Allergy/AdvReac Type Severity Reaction Status Date / Time
No Known Allergies Allergy Verified 08/17/24 09:42
�Medication �Instructions �Recorded
hydrocortisone 10 mg tablet 10 mg PO DAILY@1400 11/20/23
Anti-Inflammatory
hydrocortisone 10 mg tablet 20 mg PO DAILY Anti-Inflammatory 11/20/23
pantoprazole 40 mg tablet,delayed 40 mg PO DAILY Gastrointestinal 11/20/23
release (Protonix) Issue
umeclidinium 62.5 mcg-vilanterol 1 inh inhalation R DAILY 11/20/23
25 mcg/actuation powdr for Lung/Breathing Issues
inhalation (Anoro Ellipta)
thiamine HCl (vitamin B1) 100 mg 100 mg PO DAILY Supplement 03/04/24
tablet
acetaminophen 500 mg tablet 1,000 mg PO Q6HPRN PRN headache 03/08/24
(Tylenol Extra Strength)
cholecalciferol (vitamin D3) 25 25 mcg PO DAILY Supplement 03/08/24
mcg (1,000 unit) tablet (Vitamin
D3)
fluticasone furoate 100 1 inh inhalation R DAILY 03/08/24
mcg/actuation blister powder for Lung/Breathing Issues
inhalation (Arnuity Ellipta)
zinc sulfate 50 mg zinc (220 mg) 50 mg PO DAILY Supplement 03/08/24
tablet
furosemide 40 mg tablet (Lasix) 40 mg PO DAILY #30 tabs 03/10/24
gabapentin 300 mg capsule 600 mg (2 x 300 mg) PO BID #120 04/30/24
caps
albuterol sulfate 90 mcg/actuation 2 puff inhalation R Q4HPRN PRN sob 08/10/24
aerosol inhaler
amitriptyline 10 mg tablet 20 mg PO HS Mental Health/Anxiety 08/10/24
amlodipine 2.5 mg tablet 2.5 mg PO HS Blood Pressure 08/10/24
atorvastatin 40 mg tablet 40 mg PO DAILY High Cholesterol 08/10/24
cyanocobalamin (vitamin B-12) 1,000 mcg PO DAILY Supplement 08/10/24
1,000 mcg tablet
magnesium oxide 100 mg PO SUMOTUTHSA Electrolyte 08/10/24
Repletion
magnesium oxide 200 mg PO WEFR Electrolyte 08/10/24
Repletion
potassium 99 mg tablet 99 mg PO DAILY Electrolyte 08/10/24
Repletion
prochlorperazine maleate 10 mg 10 mg PO TIDPRN PRN headache 08/10/24
tablet
levothyroxine 137 mcg tablet 137 mcg PO DAILY Thyroid 08/13/24
oxycodone 5 mg tablet 5 mg PO BID PRN pain #10 tabs 08/15/24
polyvinyl alcohol-povidone (PF) 1 drops BOTH EYES QID 7 days #1 ea 08/15/24
1.4 %-0.6 % eye drops in a
dropperette (Refresh Classic (PF))
carvedilol 3.125 mg tablet (Coreg) 3.125 mg PO BID 08/17/24
Review of Systems
-
All other systems: A 12 pt ROS was Negative except as stated above in HPI
Vital Signs
Temp Pulse Resp BP Pulse Ox
98 F 77 20 108/64 97
08/22/24 15:26 08/22/24 15:26 08/22/24 15:26 08/22/24 15:26 08/22/24 15:26
Physical Exam
Exam
HEENT: Normocephalic
Cardiac: Regular Rhythm
GI: Soft and Tender (Softly distended, discomfort on palpation in the upper abdomen but no tenderness, guarding or rigidity)
Results
WBC 13.8 10^3/uL (4.8-10.8) H 08/22/24 07:15
Hgb 11.8 g/dL (13.0-18.0) L 08/22/24 07:15
Hct 34.5 % (39.0-52.0) L 08/22/24 07:15
MCV 88.5 fL (80.0-94.0) 08/22/24 07:15
Plt Count 329 10^3/uL (130-400) D 08/22/24 07:15
Absolute Neuts (auto) Cancelled 08/17/24 10:33
Sodium 131 mmol/L (135-145) L 08/22/24 07:15
Potassium 4.1 mmol/L (3.5-5.1) 08/22/24 07:15
Chloride 102 mmol/L (98-107) 08/22/24 07:15
Carbon Dioxide 24 mmol/L (22-30) 08/22/24 07:15
BUN 18 mg/dl (9-20) 08/22/24 07:15
Creatinine 0.9 mg/dL (0.7-1.3) 08/22/24 07:15
Calcium 8.2 mg/dl (8.4-10.2) L 08/22/24 07:15
Total Bilirubin 0.4 mg/dl (0.2-1.3) 08/17/24 11:24
AST 23 U/L (17-59) 08/17/24 11:24
ALT 21 U/L (0-50) 08/17/24 11:24
Alkaline Phosphatase 181 U/L (38-126) H 08/17/24 11:24
Lipase 69 U/L (23-300) 08/22/24 07:15
Diagnostic Image Results:
Prior GI Procedures:
EGD:
Colonoscopy: [address] Holden, multiple tubular adenomas and tubulovillous adenomas removed from the sigmoid colon and rectum.
Flexible sigmoidoscopy at [facility] April 2024, erythema in the left colon, biopsies showing chronic active colitis suggesting immune mediated colitis.
Assessment / Plan
-
74-year-old male with history of metastatic melanoma with recurrence, currently on immunotherapy with Opdualag , last dose 08/11/2024 initially presenting with fevers without any evidence of underlying infection and now with abdominal discomfort,
abdominal bloating, erratic bowel pattern with some incomplete evacuation and also diarrhea and abdominal imaging shows ileus like picture.
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 History of immune therapy related transaminitis, treated with steroids and got better.
History of multiple tubulovillous adenomas removed on colonoscopy in 2013.
-Upper abdominal discomfort with bloating
Abdominal imaging showing gallstones but symptoms not consistent with cholecystitis.
He does report more bloating/ Ileus noted as well.
He is taking oxycodone every 4 hours and this could be contributing to the ileus and bloating symptoms.
Limit narcotic use, need to ambulate.
Currently on low residue diet and tolerating it well.
Abdominal x-ray to look for fecal burden(opioid related) and if there is significant amount of stool, will need to put him on stool softener/laxative. This is going to be tricky as he does have some intermittent episodes of diarrhea. Will first
rule out infection including C. difficile, stool for white cells.
Celiac panel was done in April 2024 and it was negative.
Agree with Protonix 40 mg twice a day for some nausea symptoms.
-History of immune mediated colitis, due to get his vedolizumab in August 2023 at [facility].
-History of transaminitis related to immunotherapy, LFTs this admission, mainly transaminases within normal limits.
Continue to closely follow-up as outpatient with [facility] for chronic GI symptoms.
-
-
Thank you for consultation and allowing me to participate in the patient's care. Please call the radiation therapist GI physician during the after hours with any questions or concerns.
[2024-08-22] MEDS: LOVENOX 40 MG SC (17:24)
--- NOTE | 2024-08-22 18:02 | PTCARENOTE ---
GI consulted d/t persistent dyspepsia. Stool for C diff ordered. Pt placed on enhanced precautions and given hat in toilet for sample.
[2024-08-22] MEDS: PEPCID 20 MG PO (19:27)
[2024-08-22 20:05] VITALS: BP 107/63
[2024-08-22] MEDS: MELATONIN 3 MG PO (23:16)
[2024-08-22] MEDS: NORVASC 2.5 MG PO (23:19)
[2024-08-22] MEDS: ELAVIL 20 MG PO (23:19)
[2024-08-23 03:34] VITALS: BP 115/64
[2024-08-23] MEDS: SYNTHROID 137 MCG PO (05:36)
[2024-08-23 06:00] VITALS: BMI 25.4
[2024-08-23 07:00] VITALS: BP 111/71
[2024-08-23] MEDS: SPIRIVA RESPIMAT 2.5 MCG 2 PUFF INH (07:41)
[2024-08-23] MEDS: STRIVERDI RESPIMAT 2 PUFF INH (07:41)
[2024-08-23] MEDS: FLOVENT 44 MCG INHALER 2 PUFF INH ×2 (07:41→20:33)
[2024-08-23] MEDS: DELTASONE 50 MG PO (07:51)
[2024-08-23] MEDS: VITAMIN D3 (cholecalciferol) 25 MCG PO (07:51)
[2024-08-23] MEDS: VITAMIN B-12 1000 MCG PO (07:51)
[2024-08-23] MEDS: ZINC 50 MG PO (07:51)
[2024-08-23] MEDS: PEPCID 20 MG PO ×2 (07:51→20:05)
[2024-08-23] MEDS: NEURONTIN 600 MG PO ×2 (07:51→20:05)
[2024-08-23] MEDS: VITAMIN B1 100 MG PO (07:51)
[2024-08-23] MEDS: COREG 3.125 MG PO ×2 (07:51→20:05)
[2024-08-23] MEDS: PROTONIX 40 MG PO ×2 (07:51→20:05)
[2024-08-23] MEDS: LIPITOR 40 MG PO (07:51)
[2024-08-23] MEDS: REFRESH EYE DROPS (PF) 1 DROPS OPHTH ×4 (07:51→21:59)
[2024-08-23] MEDS: ROXICODONE 5 MG PO ×3 (07:56→20:15)
[2024-08-23] MEDS: COMPAZINE 10 MG PO (07:56)
[2024-08-23 09:11] LABS: Hemoglobin 12.2 g/dL (13.0-18.0); Mean Corpuscular Hgb 28.8 pg (27.0-31.0); Mean Corpuscular Volume 87.5 fL (80.0-94.0); Mean Platelet Volume 10.5 fL (7.4-10.4); Platelet Count 436 10^3/uL (130-400); Red Blood Cell Count 4.23 10^6/uL (4.70-6.10); Red Cell Dist. Width 13.8 % (11.5-14.5); White Blood Cell Count 11.5 10^3/uL (4.8-10.8)
[2024-08-23 09:28] LABS: Blood Urea Nitrogen 18 mg/dl (9-20); Calcium 8.4 mg/dl (8.4-10.2); Carbon Dioxide 22 mmol/L (22-30); Chloride 99 mmol/L (98-107); Estimated Creatinine Clearance 72 ml/min; Glucose 101 mg/dl (70-99); Potassium 4.6 mmol/L (3.5-5.1); Sodium 131 mmol/L (135-145); eGFR > 60.00
--- NOTE | 2024-08-23 10:37 | W.PN.GI.CBS2 ---
Today's Communication / Plan
-
Standing simethicone. If no improvement in abdominal discomfort, check HIDA.
Assessment / Plan
-
74-year-old male with history of metastatic melanoma with recurrence, currently on immunotherapy with Opdualag , last dose 08/11/2024 initially presenting with fevers without any evidence of underlying infection and now with abdominal discomfort,
abdominal bloating, erratic bowel pattern with some incomplete evacuation and also diarrhea and abdominal imaging shows ileus like picture.
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 History of immune therapy related transaminitis, treated with steroids and got better.
History of multiple tubulovillous adenomas removed on colonoscopy in 2013.
-Upper abdominal discomfort with bloating
Abdominal imaging showing gallstones but symptoms not consistent with cholecystitis.
He does report more bloating/ Ileus noted as well.
He is taking oxycodone every 4 hours and this could be contributing to the ileus and bloating symptoms.
Limit narcotic use, need to ambulate.
Currently on low residue diet, unable to tolerate right now as had recurrence of abd. pain after drinking water
Abd Xray without significant stool, no BM in last 24 hours but he admits to urgency; stool studies for norovirus neg
CT scan of the abdomen and pelvis with IV contrast 08/17/2024 showing evidence of gallstones, fluid-filled stomach and fluid-filled small bowel and large bowel suggesting enteritis or ileus. Repeat CT scan of the abdomen and pelvis with IV and oral
contrast 08/21/2024 showing wall thickening of the proximal to mid small bowel loops suggesting enteritis but improved compared to previous CT and subtle wall thickening of the right and mid colon and also sigmoid colon. Single gallstone in the
gallbladder.
Celiac panel was done in April 2024 and it was negative.
Agree with Protonix 40 mg twice a day for some nausea symptoms.
-History of immune mediated colitis, due to get his vedolizumab in August 2023 at [place].
-History of transaminitis related to immunotherapy, LFTs this admission, mainly transaminases within normal limits.
Admits to improvement in pain when passing flatus. Will trial standing simethicone. No diarrhea to collect stool samples. If no improvement, recommend HIDA scan. t/c empiric tx with Xifaxin.
Subjective
Subjective
Date of Service: August 23, 2024
Patient seen in follow-up reports urgency but no BMs. After drinking water, reports sharp periumbilical and upper abdominal discomfort. Feels that when passing flatus, the pain improved. Abdominal Xray showed only minimal stool present.
Objective
Data Reviewed
Laboratory Data:
Laboratory Results
08/23/24 08:04
08/23/24 08:04
Laboratory Results
Magnesium 1.9 mg/dl (1.6-2.3) 08/19/24 07:05
Total Bilirubin 0.4 mg/dl (0.2-1.3) 08/17/24 11:24
AST 23 U/L (17-59) 08/17/24 11:24
ALT 21 U/L (0-50) 08/17/24 11:24
Alkaline Phosphatase 181 U/L (38-126) H 08/17/24 11:24
Lipase 69 U/L (23-300) 08/22/24 07:15
Vital Signs and I&O:
Vital Signs
Temp Pulse Resp BP Pulse Ox
98.3 F 87 16 111/71 98
08/23/24 07:00 08/23/24 07:47 08/23/24 07:47 08/23/24 07:00 08/23/24 07:47
I&O
08/22/24 08/23/24 08/24/24
06:59 06:59 06:59
Intake Total 1440 / 1440 1440 / 1440
Output Total 1100 / 1100
Balance 340 / 340 1440 / 1440
Physical Exam
Physical Exam
GI: Soft and Tender (mildly tender in periumbilical area and upper abdomen w/o rebound or guarding; mildly distended, tympanic to percussion)
[2024-08-23 11:00] VITALS: BP 119/70
[2024-08-23] MEDS: MYLICON 80 MG PO ×3 (11:07→20:18)
[2024-08-23] MEDS: TYLENOL 650 MG PO (11:11)
--- NOTE | 2024-08-23 14:01 | W.PN.HOSP.TC ---
Addendum entered and electronically signed by Vinny Martin MD 08/23/24 14:37:
Hyponatremia noted -follow BMP
Original Note:
Today's Communication/Plan
-
CW current tx
Start on IV fluids
Assessment / Plan
Assessment / Plan
Impression
74-year-old male with past medical history of metastatic melanoma with lung mets, recently discharged on August 15, 2024 after being managed with steroids for SIRS from immune mediated reactions to Opdualag. He follows up at [facility]
with Dr. Lauri Perales and was readmitted with headache, blurred vision, decreased appetite, and 1 episode of diarrhea.
CT abdomen pelvis showed enteritis, placed on steroids and is feeling better today.
He denies any shortness of breath, palpitations, abdominal pain, nausea, vomiting, constipation, burning micturition, or changes in mental status.
Assessment/plan
Immun therapy related systemic complications
Presented with one episode of diarrhea at home with and body aches
Decreased appetite and weakness
#Abd/Pelvis CT: 08/17/2024
No findings to suggest central pulmonary embolism.
Small anterior pericardial effusion.
Small gastric diverticulum again seen.
Prominent gallbladder with at least one gallstone again identified. No findings to suggest biliary tract dilatation.
Fluid-filled stomach, fluid-filled loops of small bowel, some fluid-filled loops of large bowel as well as some small and large bowel wall enhancement,, few air-fluid levels, overall
Enteritis/chronic functional diarrhea
His oncologist at [place] believes that it could be delayed inflammatory response to immunotherapy
Oncology consult appreciated
Patient to be treated with steroid stress dose
Patient responded well to steroids and has been improving. More formed stools now and no diarrhea. HH stable
Follow-up with oncology at [facility]
Suspect dyspeptic symptoms-increase Protonix to twice a day and use as needed Maalox
-Suspect leukocytosis may be secondary to steroids. Afebrile.Improving
# Recurrent abdo pain
Patient has recurrence of abdominal pain more focused in the epigastric area. He also feels bloated. Clinically he is distended with epigastric pain. Unclear if this is persistence of enteritis or developing ileus. Tolerating clears. No
vomiting.
CT of the abdomen pelvis-
Wall thickening involving proximal to mid small bowel loops, suggesting enteritis, which appears to be slightly improved from most recent CT of August 17, 2024.
There is also subtle suggestion of wall thickening involving the colon, mainly the right colon and the transverse colon, suggestive of colitis.
Wall thickening involving the sigmoid colon, which could be from inflammatory colitis versus diverticulosis.
No evidence for bowel obstruction. No evidence of free intraperitoneal air.
Suspect his symptoms secondary to dyspepsia. Started Pepcid as well.
Appreciate GI input-started on simethicone as well. If no improvement recommending HIDA scan. To consider empirical treatment with Xifaxan if no improvement.
With poor oral intake I will start low-dose IV fluids.
#Right leg pain. Right calf is also swollen and tender- ultrasound of the leg shows no DVT but possible hematoma. cw symptomatic tx.
#Possible ADALI
Patient had serum creatinine of 1.6 on admission most likely secondary to decreased perfusion urea creatinine ratio greater than 20
Patient receiving normal saline at 100 mL/h
Normalized creatinine
Monitor BMP
Encourage patient for oral intake of fluids
#Non-ischemic myocardial injury
Patient had no signs and symptoms of chest pain, syncope, shortness of breath
On admission in the ED the drop I was raised to 0.043
On trending drop I they have been trending down
Monitor
#metastatic melanoma on immunotherapy
#severe peripheral neuropathy
Currently treated @ [facility] by Dr. Lauri Perales
-Patient is on hydrocortisone 30 mg at home
Due to the worsening pain and symptoms patient started on prednisone 50 mg
Continue to monitor and taper dose as tolerated
Other medical conditions
#COPD
- continue albuterol HFA PRN, and Ellipta
#HFmrEF
#severe mitral regurgitation- hold furosemide
- continue carvedilol
- monitor daily weights and I&O's
#hypothyroidism- continue levothyroxine
#chronic headaches/migraines - continue amitriptyline-if persist can go for Neuro opinion
#adrenal insufficiency
#chronic/functional diarrhea
Code status: Full Code
DVT Prophylaxis: Lovenox Sq
Anticipated Discharge: > 48 hours
Subjective/Interval History
-
Date of Service: August 23, 2024
Patient today still with upper abdominal discomfort. He points out to the central upper abdomen and epigastric area. It comes in waves still. He can take some clears but not able to do solid diet much. Denies any diarrhea. No fever chills.
Denies any shortness of breath or chest pain. Not on oxygen.
Objective Data
-
Labs:
Laboratory Results
08/23/24
08:04
WBC 11.5 H
Hgb 12.2 L
Hct 37.0 L
Plt Count 436 H D
Sodium 131 L
Potassium 4.6
Chloride 99
Carbon Dioxide 22
BUN 18
Creatinine 0.9
Glucose 101 H
Calcium 8.4
Vital Signs:
Vital Signs
Temp Pulse Resp BP Pulse Ox
98.2 F 82 16 119/70 94
08/23/24 11:00 08/23/24 11:00 08/23/24 11:00 08/23/24 11:00 08/23/24 11:00
I&O
08/22/24 08/23/24 08/24/24
06:59 06:59 06:59
Intake Total 1440 / 1440 1440 / 1440
Output Total 1100 / 1100
Balance 340 / 340 1440 / 1440
Review of Systems
-
Constitutional: Denies Fever or Chills
EENT: Denies Sore Throat
Respiratory: Denies Cough
Neuro: Denies Dizzy or Headache
Physical Exam
-
General: Comfortable
Respiratory: Non Labored Respirations; Negative Accessory Resp Muscle Use
Cardiac: Regular Rhythm and S1/S2
GI: Soft, Nondistended, Normal Bowel Sounds and Tender (discomfort in epigastric area )
Neuro: AO x 3
Psych: Calm
Data Reviewed
-
Labs: Labs Reviewed by me
[2024-08-23] MEDS: NSS 1000 IV (14:46)
[2024-08-23 15:00] VITALS: BP 113/71
[2024-08-23] MEDS: LOVENOX 40 MG SC (17:26)
[2024-08-23 19:55] VITALS: BP 139/78
[2024-08-23] MEDS: MELATONIN 3 MG PO (21:59)
[2024-08-23] MEDS: NORVASC 2.5 MG PO (21:59)
[2024-08-23] MEDS: ELAVIL 20 MG PO (21:59)
[2024-08-23 23:30] VITALS: BP 113/72
[2024-08-24 03:30] VITALS: BP 112/65
[2024-08-24] MEDS: SYNTHROID 137 MCG PO (06:08)
[2024-08-24] MEDS: NSS 1000 IV (06:10)
[2024-08-24 07:14] VITALS: BMI 25.1
[2024-08-24] MEDS: COREG 3.125 MG PO ×2 (07:48→20:04)
[2024-08-24] MEDS: LIPITOR 40 MG PO (07:48)
[2024-08-24] MEDS: NEURONTIN 600 MG PO ×2 (07:48→20:08)
[2024-08-24] MEDS: VITAMIN B-12 1000 MCG PO (07:48)
[2024-08-24] MEDS: PROTONIX 40 MG PO ×2 (07:48→20:08)
[2024-08-24] MEDS: VITAMIN D3 (cholecalciferol) 25 MCG PO (07:48)
[2024-08-24] MEDS: PEPCID 20 MG PO ×2 (07:48→20:08)
[2024-08-24] MEDS: ZINC 50 MG PO (07:48)
[2024-08-24] MEDS: DELTASONE 50 MG PO (07:48)
[2024-08-24] MEDS: REFRESH EYE DROPS (PF) 1 DROPS OPHTH ×4 (07:49→23:22)
[2024-08-24 07:50] VITALS: BP 127/69
[2024-08-24] MEDS: SPIRIVA RESPIMAT 2.5 MCG 2 PUFF INH (07:56)
[2024-08-24] MEDS: FLOVENT 44 MCG INHALER 2 PUFF INH ×2 (07:56→19:48)
[2024-08-24] MEDS: STRIVERDI RESPIMAT 2 PUFF INH (07:56)
[2024-08-24] MEDS: VITAMIN B1 100 MG PO (07:57)
[2024-08-24] MEDS: ROXICODONE 5 MG PO ×3 (08:02→20:07)
[2024-08-24 10:30] LABS: Blood Urea Nitrogen 15 mg/dl (9-20); Calcium 7.9 mg/dl (8.4-10.2); Carbon Dioxide 20 mmol/L (22-30); Chloride 100 mmol/L (98-107); Estimated Creatinine Clearance 81 ml/min; Glucose 88 mg/dl (70-99); Potassium 4.1 mmol/L (3.5-5.1); Sodium 131 mmol/L (135-145); eGFR > 60.00
--- NOTE | 2024-08-24 11:15 | W.PN.HOSP.TC ---
Today's Communication/Plan
-
DC IV fluids
If he tolerates his diet will start DC planning
Assessment / Plan
Assessment / Plan
Impression
74-year-old male with past medical history of metastatic melanoma with lung mets, recently discharged on August 15, 2024 after being managed with steroids for SIRS from immune mediated reactions to Opdualag. He follows up at [facility]
with Dr. Lauri Perales and was readmitted with headache, blurred vision, decreased appetite, and 1 episode [address]
CT abdomen pelvis showed enteritis, placed on steroids and is feeling better today.
He denies any shortness of breath, palpitations, abdominal pain, nausea, vomiting, constipation, burning micturition, or changes in mental status.
Assessment/plan
Immun therapy related systemic complications
Presented with one episode of diarrhea at home with and body aches
Decreased appetite and weakness
#Abd/Pelvis CT: 08/17/2024
No findings to suggest central pulmonary embolism.
Small anterior pericardial effusion.
Small gastric diverticulum again seen.
Prominent gallbladder with at least one gallstone again identified. No findings to suggest biliary tract dilatation.
Fluid-filled stomach, fluid-filled loops of small bowel, some fluid-filled loops of large bowel as well as some small and large bowel wall enhancement,, few air-fluid levels, overall
Enteritis/chronic functional diarrhea
His oncologist at [place] believes that it could be delayed inflammatory response to immunotherapy
Oncology consult appreciated
Patient to be treated with steroid stress dose
Patient responded well to steroids and has been improving. More formed stools now and no diarrhea. HH stable.Improved findings of enteritis on CT.
Follow-up with oncology at [facility]
-Suspect leukocytosis may be secondary to steroids. Afebrile.Improving
# Recurrent abdo pain
Patient has recurrence of abdominal pain more focused in the epigastric area. He also feels bloated. Clinically he is distended with epigastric pain. Unclear if this is persistence of enteritis or developing ileus. Tolerating clears. No
vomiting.
CT of the abdomen pelvis-
Wall thickening involving proximal to mid small bowel loops, suggesting enteritis, which appears to be slightly improved from most recent CT of August 17, 2024.
There is also subtle suggestion of wall thickening involving the colon, mainly the right colon and the transverse colon, suggestive of colitis.
Wall thickening involving the sigmoid colon, which could be from inflammatory colitis versus diverticulosis.
No evidence for bowel obstruction. No evidence of free intraperitoneal air.
Suspect his symptoms secondary to dyspepsia. Started Pepcid as well.
Appreciate GI input-started on simethicone as well. If no improvement recommending HIDA scan. To consider empirical treatment with Xifaxan if no improvement.
Somewhat improved intake but pt still symptomatic -follow GI recs
#Right leg pain. Right calf is also swollen and tender- ultrasound of the leg shows no DVT but possible hematoma. cw symptomatic tx.
#Possible ADALI
Patient had serum creatinine of 1.6 on admission most likely secondary to decreased perfusion urea creatinine ratio greater than 20
Patient receiving normal saline at 100 mL/h
Normalized creatinine
Monitor BMP
Encourage patient for oral intake of fluids
# Hyponatremia -mild -follow for now
#Non-ischemic myocardial injury
Patient had no signs and symptoms of chest pain, syncope, shortness of breath
On admission in the ED the drop I was raised to 0.043
On trending drop I they have been trending down
Monitor
#metastatic melanoma on immunotherapy
#severe peripheral neuropathy
Currently treated @ [facility] by Dr. Lauri Perales
-Patient is on hydrocortisone 30 mg at home
Due to the worsening pain and symptoms patient started on prednisone 50 mg
Continue to monitor and taper dose as tolerated
Other medical conditions
#COPD
- continue albuterol HFA PRN, and Ellipta
#HFmrEF
#severe mitral regurgitation- hold furosemide
- continue carvedilol
- monitor daily weights and I&O's
#hypothyroidism- continue levothyroxine
#chronic headaches/migraines - continue amitriptyline-if persist can go for Neuro opinion
#adrenal insufficiency
#chronic/functional diarrhea
Code status: Full Code
DVT Prophylaxis: Lovenox Sq
DC home when ok from GI standpoint
Anticipated Discharge: Within 24 hours
Subjective/Interval History
-
Date of Service: August 24, 2024
No diarrhea. No bowel movement today so far.
Still with intermittent crampy abdominal pain. Less heartburn and reflux. Still not feeling great with regards to his oral intake. He feels his swallow is not right but able to take pills and swallow liquids and diet. Denies any odynophagia.
Has prior history of chronic shoulder pain and also chronic right wrist pain and uses a right wrist splint. He feels that more discomfort today in this joints. Not swollen.
Her right calf pain is improved and less swelling
Objective Data
-
Labs:
Laboratory Results
08/24/24
07:24
Sodium 131 L
Potassium 4.1
Chloride 100
Carbon Dioxide 20 L
BUN 15
Creatinine 0.8
Glucose 88
Calcium 7.9 L
Vital Signs:
Vital Signs
Temp Pulse Resp BP Pulse Ox
97.5 F 80 16 127/69 99
08/24/24 07:50 08/24/24 07:58 08/24/24 07:58 08/24/24 07:50 08/24/24 07:58
I&O
08/23/24 08/24/24 08/25/24
06:59 06:59 06:59
Intake Total 1440 / 1440 900 / 900 720 / 720
Balance 1440 / 1440 900 / 900 720 / 720
Review of Systems
-
Constitutional: Denies Fever or Chills
EENT: Denies Sore Throat
Respiratory: Denies Cough or Trouble Breathing
Cardiac: Denies Chest Pain
Neuro: Reports Headache (chronic); Denies Dizzy
Physical Exam
-
General: Comfortable
HEENT: Moist Mucous Membranes
Respiratory: Non Labored Respirations; Negative Accessory Resp Muscle Use
Cardiac: Regular Rhythm and S1/S2; Negative Tachycardic
GI: Soft, Nontender (today no tenderness in his epigastric area), Normal Bowel Sounds and Distended (mild)
Musculoskeletal: Other (right calf swelling less and it is more softer)
Neuro: AO x 3
Psych: Calm
Data Reviewed
-
Labs: Labs Reviewed by me
[2024-08-24 11:36] VITALS: BP 127/70
--- NOTE | 2024-08-24 11:43 | CM ---
Chart reviewed for d/c planning.
Per chart, DC IV fluids. If pt tolerates diet can potentially d/c
Pt can d/c home if cleared by GI
[facility] referral prev completed, accepted for services.
Plan: Home w/ [facility] poss tomorrow pending GI
[2024-08-24] MEDS: TYLENOL 650 MG PO ×2 (14:15→20:15)
--- NOTE | 2024-08-24 14:33 | PTCARENOTE ---
patient receiving PRN Roxicodone and Tylenol for pain with some relief. reports less right calf pain/tenderness and swelling, no s/s of aspiration, though reports swallowing 'doesn't feel right', reports intermittent abdominal cramping, less
heartburn and reflux. has poor intake. vss, will continue to monitor.
[2024-08-24 15:15] VITALS: BP 125/76
--- NOTE | 2024-08-24 16:01 | PTOTSP ---
Dysphagia Evaluation
Oral/pharyngeal swallow suspected to be within functional limits. Patient with signs concerning for esophageal dysphagia (i.e., c/o heart burn, eructation with PO intake).
Recommend:
1. Regular, Thin Liquids
2. Medications as best tolerated
3. Strategies: assist with meal set up as needed given severe neuropathy, upright to 90 degrees, alternate sips/bites, pick soft/moist foods, remain upright for at least 30 minutes after PO intake, sleep with HOB elevated to at least 30 degrees,
sips of water t/o day to hydrate oral mucosa
4. Oral care 3x daily
5. No further dysphagia therapy warranted. Continue to follow with GI
[2024-08-24] MEDS: LOVENOX 40 MG SC (17:35)
--- NOTE | 2024-08-24 18:31 | W.PN.GI.CBS2 ---
Today's Communication / Plan
-
simethicone
monitor
Assessment / Plan
-
74-year-old male with history of metastatic melanoma with recurrence, currently on immunotherapy with Opdualag , last dose 08/11/2024 initially presenting with fevers without any evidence of underlying infection and now with abdominal discomfort,
abdominal bloating, erratic bowel pattern with some incomplete evacuation and also diarrhea and abdominal imaging shows ileus like picture.
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 History of immune therapy related transaminitis, treated with steroids and got better.
History of multiple tubulovillous adenomas removed on colonoscopy in 2013.
-Upper abdominal discomfort with bloating
Abdominal imaging showing gallstones but symptoms not consistent with cholecystitis.
He does report more bloating/ Ileus noted as well.
He is taking oxycodone every 4 hours and this could be contributing to the ileus and bloating symptoms.
Limit narcotic use, need to ambulate.
Currently on low residue diet, unable to tolerate right now as had recurrence of abd. pain after drinking water
Abd Xray without significant stool, no BM in last 24 hours but he admits to urgency; stool studies for norovirus neg
CT scan of the abdomen and pelvis with IV contrast 08/17/2024 showing evidence of gallstones, fluid-filled stomach and fluid-filled small bowel and large bowel suggesting enteritis or ileus. Repeat CT scan of the abdomen and pelvis with IV and oral
contrast 08/21/2024 showing wall thickening of the proximal to mid small bowel loops suggesting enteritis but improved compared to previous CT and subtle wall thickening of the right and mid colon and also sigmoid colon. Single gallstone in the
gallbladder.
Celiac panel was done in April 2024 and it was negative.
plan:
simethicone
protonix
History of immune mediated colitis, due to get his vedolizumab in August 2023 at [place].
stool on right colon with ileus: encouraged pt to move. may try suppository if no improvement
consider empiric xifaxin
Subjective
Subjective
Date of Service: August 24, 2024
Pt with distention but no pain or vomiting
Objective
Data Reviewed
Laboratory Data:
Laboratory Results
08/23/24 08:04
08/24/24 07:24
Laboratory Results
Magnesium 1.9 mg/dl (1.6-2.3) 08/19/24 07:05
Total Bilirubin 0.4 mg/dl (0.2-1.3) 08/17/24 11:24
AST 23 U/L (17-59) 08/17/24 11:24
ALT 21 U/L (0-50) 08/17/24 11:24
Alkaline Phosphatase 181 U/L (38-126) H 08/17/24 11:24
Lipase 69 U/L (23-300) 08/22/24 07:15
Vital Signs and I&O:
Vital Signs
Temp Pulse Resp BP Pulse Ox
97.4 F 89 18 125/76 97
08/24/24 15:15 08/24/24 15:15 08/24/24 15:15 08/24/24 15:15 08/24/24 15:15
I&O
08/23/24 08/24/24 08/25/24
06:59 06:59 06:59
Intake Total 1440 / 1440 900 / 900 720 / 720
Balance 1440 / 1440 900 / 900 720 / 720
Physical Exam
Physical Exam
GI: Soft, Distended and Other (tympanitic)
Neuro: Non Focal
[2024-08-24] MEDS: ELAVIL 20 MG PO (23:18)
[2024-08-24] MEDS: MELATONIN 3 MG PO (23:19)
[2024-08-24] MEDS: NORVASC 2.5 MG PO (23:20)
[2024-08-24] MEDS: MYLICON 80 MG PO (23:23)
[2024-08-24 23:40] VITALS: BP 117/75
[2024-08-25] MEDS: SYNTHROID 137 MCG PO (05:21)
[2024-08-25 06:00] VITALS: BMI 24.8
[2024-08-25 07:55] VITALS: BP 112/72
[2024-08-25] MEDS: FLOVENT 44 MCG INHALER 2 PUFF INH ×2 (08:14→19:51)
[2024-08-25] MEDS: SPIRIVA RESPIMAT 2.5 MCG 2 PUFF INH (08:14)
[2024-08-25] MEDS: STRIVERDI RESPIMAT 2 PUFF INH (08:14)
[2024-08-25] MEDS: PEPCID 20 MG PO ×2 (08:19→20:48)
[2024-08-25] MEDS: REFRESH EYE DROPS (PF) 1 DROPS OPHTH ×4 (08:19→23:04)
[2024-08-25] MEDS: VITAMIN D3 (cholecalciferol) 25 MCG PO (08:19)
[2024-08-25] MEDS: VITAMIN B1 100 MG PO (08:20)
[2024-08-25] MEDS: PROTONIX 40 MG PO ×2 (08:20→20:47)
[2024-08-25] MEDS: ROXICODONE 5 MG PO ×3 (08:20→20:46)
[2024-08-25] MEDS: LIPITOR 40 MG PO (08:20)
[2024-08-25] MEDS: VITAMIN B-12 1000 MCG PO (08:20)
[2024-08-25] MEDS: ZINC 50 MG PO (08:20)
[2024-08-25] MEDS: TYLENOL 650 MG PO ×3 (08:20→20:51)
[2024-08-25] MEDS: DELTASONE 50 MG PO (08:20)
[2024-08-25] MEDS: COREG 3.125 MG PO ×2 (08:20→20:42)
[2024-08-25] MEDS: NEURONTIN 600 MG PO ×2 (08:20→20:48)
--- NOTE | 2024-08-25 09:55 | W.PN.GI.CBS2 ---
Addendum entered and electronically signed by Alan Patel MD 08/25/24 18:34:
I saw and examined the patient.
The PA's note was reviewed and I agree with the note.
Comment:
Pt reports worsening of bloating/distention. Agree with obstruction series. Should also address her hypothyroidism.
Original Note:
Today's Communication / Plan
-
Obstruction series
Dulcolax suppository
Assessment / Plan
-
74-year-old male with history of metastatic melanoma with recurrence, currently on immunotherapy with Opdualag , last dose 08/11/2024 initially presenting with fevers without any evidence of underlying infection and now with abdominal discomfort,
abdominal bloating, erratic bowel pattern with some incomplete evacuation and also diarrhea and abdominal imaging shows ileus like picture.
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 History of immune therapy related transaminitis, treated with steroids and got better.
History of multiple tubulovillous adenomas removed on colonoscopy in 2013.
-Upper abdominal discomfort with bloating
Abdominal imaging showing gallstones but symptoms not consistent with cholecystitis.
He does report more bloating/ Ileus noted as well.
He is taking oxycodone every 4 hours and this could be contributing to the ileus and bloating symptoms.
Limit narcotic use, need to ambulate.
Currently on low residue diet
Abd Xray without significant stool, no BM in last 24 hours but he admits to urgency; stool studies for norovirus neg
CT scan of the abdomen and pelvis with IV contrast 08/17/2024 showing evidence of gallstones, fluid-filled stomach and fluid-filled small bowel and large bowel suggesting enteritis or ileus. Repeat CT scan of the abdomen and pelvis with IV and oral
contrast 08/21/2024 showing wall thickening of the proximal to mid small bowel loops suggesting enteritis but improved compared to previous CT and subtle wall thickening of the right and mid colon and also sigmoid colon. Single gallstone in the
gallbladder.
Celiac panel was done in April 2024 and it was negative.
plan:
simethicone
protonix
History of immune mediated colitis, due to get his vedolizumab in August 2023 at [place].
stool on right colon with ileus: encouraged pt to move.
Repeat Obstruction series to eval stool and bowel loops
Dulcolax suppository
TSH 12 with hypothyroid
hyponatremia could also be contributing to ileus
consider empiric xifaxin
Subjective
Subjective
Date of Service: August 25, 2024
Patient passed flatus yesterday,none today. Small BM this am. Feels very bloated with nausea this am. Had solid breakfast. Ate half.
Objective
Data Reviewed
Laboratory Data:
Laboratory Results
08/23/24 08:04
Laboratory Results
Magnesium 1.9 mg/dl (1.6-2.3) 08/19/24 07:05
Total Bilirubin 0.4 mg/dl (0.2-1.3) 08/17/24 11:24
AST 23 U/L (17-59) 08/17/24 11:24
ALT 21 U/L (0-50) 08/17/24 11:24
Alkaline Phosphatase 181 U/L (38-126) H 08/17/24 11:24
Lipase 69 U/L (23-300) 08/22/24 07:15
Vital Signs and I&O:
Vital Signs
Temp Pulse Resp BP Pulse Ox
98.7 F 80 16 112/72 95
08/25/24 07:55 08/25/24 08:19 08/25/24 08:19 08/25/24 07:55 08/25/24 08:19
I&O
08/24/24 08/25/24 08/26/24
06:59 06:59 06:59
Intake Total 900 / 900 1440 / 1440
Output Total 300 / 300
Balance 900 / 900 1140 / 1140
Physical Exam
Physical Exam
HEENT: Anicteric
Cardiology: Normal Sinus Rhythm
Pulmonary: Clear
GI: Soft, Distended, Non Tender and Normal Bowel Sounds
Extremities: No Edema
Neuro: Non Focal
[2024-08-25 10:15] LABS: Blood Urea Nitrogen 15 mg/dl (9-20); Calcium 8.3 mg/dl (8.4-10.2); Carbon Dioxide 24 mmol/L (22-30); Chloride 99 mmol/L (98-107); Estimated Creatinine Clearance 72 ml/min; Glucose 114 mg/dl (70-99); Potassium 4.2 mmol/L (3.5-5.1); Sodium 130 mmol/L (135-145); eGFR > 60.00
[2024-08-25] MEDS: DULCOLAX 10 MG RECTAL (11:18)
[2024-08-25 15:50] VITALS: BP 108/64
--- NOTE | 2024-08-25 15:57 | W.PN.HOSP.TC ---
Today's Communication/Plan
-
await stool studies--although had to have suppository to make him go
await GI decision
Assessment / Plan
Assessment / Plan
pt is a 74 year old male
Immune therapy related systemic complications--Presented with one episode of diarrhea at home with and body aches--Decreased appetite and weakness--apprec onc--comnt steroids--await GI--for OBS series---Suspect leukocytosis may be secondary to
steroids. Afebrile--Improving
Abd/Pelvis CT: 08/17/2024
No findings to suggest central pulmonary embolism.
Small anterior pericardial effusion.
Small gastric diverticulum again seen.
Prominent gallbladder with at least one gallstone again identified. No findings to suggest biliary tract dilatation.
Fluid-filled stomach, fluid-filled loops of small bowel, some fluid-filled loops of large bowel as well as some small and large bowel wall enhancement,, few air-fluid levels, overall
Recurrent abdominal pain--Patient has recurrence of abdominal pain more focused in the epigastric area. He also feels bloated. Clinically he is distended with epigastric pain. Unclear if this is persistence of enteritis or developing ileus.
Tolerating clears. No vomiting--Suspect his symptoms secondary to dyspepsia. Started Pepcid as well--Appreciate GI input-started on simethicone as well. If no improvement recommending HIDA scan. To consider empirical treatment with Xifaxan if no
improvement--Somewhat improved intake but pt still symptomatic -follow GI recs
Right leg pain. Right calf is also swollen and tender- ultrasound of the leg shows no DVT but possible hematoma. cw symptomatic tx.
Possible ADALI--Patient had serum creatinine of 1.6 on admission most likely secondary to decreased perfusion urea creatinine ratio greater than 20--Patient receiving normal saline at 100 mL/h--Normalized creatinine--Encourage patient for oral intake
of fluids
Hyponatremia -mild -follow for now
Non-ischemic myocardial injury--Patient had no signs and symptoms of chest pain, syncope, shortness of breath--On admission in the ED the drop I was raised to 0.043--Monitor
metastatic melanoma on immunotherapy/severe peripheral neuropathy--Currently treated @ [facility] by Dr. Lauri Perales--Patient is on hydrocortisone 30 mg at home--Due to the worsening pain and symptoms patient started on prednisone 50 mg--Continue to
monitor and taper dose as tolerated
Other medical conditions
COPD-- continue albuterol HFA PRN, and Ellipta
HFmrEF--severe mitral regurgitation- hold furosemide - continue carvedilol - monitor daily weights and I&O's
hypothyroidism- continue levothyroxine
chronic headaches/migraines - continue amitriptyline-if persist can go for Neuro opinion
adrenal insufficiency
chronic/functional diarrhea
Code status: Full Code
DVT Prophylaxis: Lovenox Sq
DC home when ok from GI standpoint
Anticipated Discharge: 24 - 48 hours
Subjective/Interval History
-
Date of Service: August 25, 2024
pt still c/o abdominal pain
Objective Data
-
Labs:
Laboratory Results
08/25/24
09:22
Sodium 130 L
Potassium 4.2
Chloride 99
Carbon Dioxide 24
BUN 15
Creatinine 0.9
Glucose 114 H
Calcium 8.3 L
Vital Signs:
max temp for 24 hours
08/25/24
07:55
Temp 98.7 F
Vital Signs
Temp Pulse Resp BP Pulse Ox
98.7 F 80 16 112/72 95
08/25/24 07:55 08/25/24 08:19 08/25/24 08:19 08/25/24 07:55 08/25/24 08:19
I&O
08/24/24 08/25/24 08/26/24
06:59 06:59 06:59
Intake Total 900 / 900 1440 / 1440
Output Total 300 / 300
Balance 900 / 900 1140 / 1140
Review of Systems
-
All other systems: Reviewed and negative
Abdomen/GI: Reports Abdominal Pain
Physical Exam
-
General: Well Developed, Well Nourished and No Apparent Distress
Respiratory: Clear to Auscultation; Negative Wheezes or Rhonchi
Cardiac: Regular Rhythm and S1/S2; Negative Murmur
GI: Soft, Normal Bowel Sounds, Tender and Distended
Musculoskeletal: No Clubbing, No Cyanosis and No Edema
Neuro: Awake and Alert
Psych: Calm
[2024-08-25] MEDS: LOVENOX 40 MG SC (17:25)
[2024-08-25] MEDS: ELAVIL 20 MG PO (23:00)
[2024-08-25] MEDS: MELATONIN 3 MG PO (23:01)
[2024-08-25] MEDS: NORVASC 2.5 MG PO (23:01)
[2024-08-25 23:46] VITALS: BP 122/73
[2024-08-26] MEDS: SYNTHROID 137 MCG PO (05:11)
[2024-08-26 05:13] VITALS: BMI 24.7
[2024-08-26 07:50] VITALS: BP 109/67
[2024-08-26] MEDS: LIPITOR 40 MG PO (08:06)
[2024-08-26] MEDS: VITAMIN B1 100 MG PO (08:06)
[2024-08-26] MEDS: DELTASONE 50 MG PO (08:06)
[2024-08-26] MEDS: VITAMIN D3 (cholecalciferol) 25 MCG PO (08:06)
[2024-08-26] MEDS: VITAMIN B-12 1000 MCG PO (08:06)
[2024-08-26] MEDS: NEURONTIN 600 MG PO ×2 (08:06→20:25)
[2024-08-26] MEDS: PEPCID 20 MG PO ×2 (08:06→20:26)
[2024-08-26] MEDS: PROTONIX 40 MG PO ×2 (08:07→20:27)
[2024-08-26] MEDS: ROXICODONE 5 MG PO ×2 (08:07→17:31)
[2024-08-26] MEDS: TYLENOL 650 MG PO ×2 (08:07→17:31)
[2024-08-26] MEDS: ZINC 50 MG PO (08:07)
[2024-08-26] MEDS: COREG 3.125 MG PO ×2 (08:07→20:27)
[2024-08-26] MEDS: REFRESH EYE DROPS (PF) 1 DROPS OPHTH ×4 (08:07→22:06)
[2024-08-26 08:21] LABS: Blood Urea Nitrogen 18 mg/dl (9-20); Calcium 8.2 mg/dl (8.4-10.2); Carbon Dioxide 22 mmol/L (22-30); Chloride 99 mmol/L (98-107); Estimated Creatinine Clearance 81 ml/min; Glucose 96 mg/dl (70-99); Magnesium 1.9 mg/dl (1.6-2.3); Potassium 4.2 mmol/L (3.5-5.1); Sodium 131 mmol/L (135-145); eGFR > 60.00
[2024-08-26] MEDS: STRIVERDI RESPIMAT 2 PUFF INH (08:57)
[2024-08-26] MEDS: SPIRIVA RESPIMAT 2.5 MCG 2 PUFF INH (08:57)
[2024-08-26] MEDS: FLOVENT 44 MCG INHALER 2 PUFF INH ×2 (08:58→20:39)
[2024-08-26 09:18] LABS: Platelet Count 336 10^3/uL (130-400)
[2024-08-26 09:19] LABS: Hematocrit 35.1 % (39.0-52.0); Hemoglobin 12.1 g/dL (13.0-18.0); Mean Corp Hgb Conc. 34.5 g/dL (33.0-37.0); Mean Corpuscular Hgb 29.7 pg (27.0-31.0); Mean Platelet Volume 12.3 fL (7.4-10.4); Red Blood Cell Count 4.08 10^6/uL (4.70-6.10); Red Cell Dist. Width 13.4 % (11.5-14.5); White Blood Cell Count 12.4 10^3/uL (4.8-10.8)
--- NOTE | 2024-08-26 14:57 | W.PN.HOSP.TC ---
Today's Communication/Plan
-
d/c home when ok with GI
advance diet as per GI
Assessment / Plan
Assessment / Plan
pt is a 74 year old male
Immune therapy related systemic complications--Presented with one episode of diarrhea at home with and body aches--Decreased appetite and weakness--apprec onc--cont steroids--apprec GI-- OBS series neg--Suspect leukocytosis may be secondary to
steroids. Afebrile--Improving
Abd/Pelvis CT: 08/17/2024
No findings to suggest central pulmonary embolism.
Small anterior pericardial effusion.
Small gastric diverticulum again seen.
Prominent gallbladder with at least one gallstone again identified. No findings to suggest biliary tract dilatation.
Fluid-filled stomach, fluid-filled loops of small bowel, some fluid-filled loops of large bowel as well as some small and large bowel wall enhancement,, few air-fluid levels, overall
Recurrent abdominal pain--Patient has recurrence of abdominal pain more focused in the epigastric area. He also feels bloated. Clinically he is distended with epigastric pain. Unclear if this is persistence of enteritis or developing ileus.
Tolerating low residue but wants more food-- No vomiting--Suspect his symptoms secondary to dyspepsia. Started Pepcid as well--Appreciate GI input-started on simethicone as well. If no improvement recommending HIDA scan. To consider empirical
treatment with Xifaxan--Somewhat improved intake but pt still symptomatic -follow GI recs
Right leg pain. Right calf is also swollen and tender- ultrasound of the leg shows no DVT but possible hematoma. cw symptomatic tx.
Possible ADALI--Patient had serum creatinine of 1.6 on admission most likely secondary to decreased perfusion urea creatinine ratio greater than 20--Patient receiving normal saline at 100 mL/h--Normalized creatinine--Encourage patient for oral intake
of fluids
Hyponatremia -mild -follow for now
Non-ischemic myocardial injury--Patient had no signs and symptoms of chest pain, syncope, shortness of breath--On admission in the ED the drop I was raised to 0.043--Monitor
metastatic melanoma on immunotherapy/severe peripheral neuropathy--Currently treated @ [facility] by Dr. Lauri Perales--Patient is on hydrocortisone 30 mg at home--Due to the worsening pain and symptoms patient started on prednisone 50 mg--Continue to
monitor and taper dose as tolerated
Other medical conditions
COPD-- continue albuterol HFA PRN, and Ellipta
HFmrEF--severe mitral regurgitation- hold furosemide - continue carvedilol - monitor daily weights and I&O's
hypothyroidism- continue levothyroxine
chronic headaches/migraines - continue amitriptyline-if persist can go for Neuro opinion
adrenal insufficiency
chronic/functional diarrhea
Code status: Full Code
DVT Prophylaxis: Lovenox Sq
DC home when ok from GI standpoint
Anticipated Discharge: 24 - 48 hours
Subjective/Interval History
-
Date of Service: August 26, 2024
pt does not like the low residue diet
Objective Data
-
Labs:
Laboratory Results
08/26/24 08/26/24
07:08 08:24
WBC Cancelled 12.4 H
Hgb Cancelled 12.1 L
Hct Cancelled 35.1 L
Plt Count Cancelled 336 D
Sodium 131 L
Potassium 4.2
Chloride 99
Carbon Dioxide 22
BUN 18
Creatinine 0.8
Glucose 96
Calcium 8.2 L
Vital Signs:
max temp for 24 hours
08/26/24
07:50
Temp 98.7 F
Vital Signs
Temp Pulse Resp BP Pulse Ox
98.7 F 72 16 109/67 98
08/26/24 07:50 08/26/24 09:04 08/26/24 09:04 08/26/24 07:50 08/26/24 09:04
I&O
08/25/24 08/26/24 08/27/24
06:59 06:59 06:59
Intake Total 1440 / 1440 1440 / 1440
Output Total 300 / 300 300 / 300
Balance 1140 / 1140 1140 / 1140
Review of Systems
-
All other systems: Reviewed and negative
Physical Exam
-
General: Well Developed, Well Nourished and No Apparent Distress
HEENT: Normocephalic and Atraumatic
Respiratory: Clear to Auscultation; Negative Wheezes or Rhonchi
Cardiac: Regular Rhythm and S1/S2; Negative Murmur
GI: Soft, Nontender, Normal Bowel Sounds and Distended
Musculoskeletal: No Clubbing, No Cyanosis and No Edema
Neuro: Awake and Alert
Psych: Calm
[2024-08-26 15:00] VITALS: BP 104/58
--- NOTE | 2024-08-26 16:19 | W.PN.GI.CBS2 ---
Today's Communication / Plan
-
Okay to advance diet as tolerated
Minimize opioid
Continue current treatment
Assessment / Plan
-
74-year-old male with history of metastatic melanoma with recurrence, currently on immunotherapy with Opdualag , last dose 08/11/2024 initially presenting with fevers without any evidence of underlying infection and now with abdominal discomfort,
abdominal bloating, erratic bowel pattern with some incomplete evacuation and also diarrhea and abdominal imaging shows ileus like picture.
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 History of immune therapy related transaminitis, treated with steroids and got better.
History of multiple tubulovillous adenomas removed on colonoscopy in 2013.
-Upper abdominal discomfort with bloating
Abdominal imaging showing gallstones but symptoms not consistent with cholecystitis.
He does report more bloating/ Ileus noted as well.
He is taking oxycodone every 4 hours and this could be contributing to the ileus and bloating symptoms.
Limit narcotic use, need to ambulate.
Currently on low residue diet
Abd Xray without significant stool, no BM in last 24 hours but he admits to urgency; stool studies for norovirus neg
CT scan of the abdomen and pelvis with IV contrast 08/17/2024 showing evidence of gallstones, fluid-filled stomach and fluid-filled small bowel and large bowel suggesting enteritis or ileus. Repeat CT scan of the abdomen and pelvis with IV and oral
contrast 08/21/2024 showing wall thickening of the proximal to mid small bowel loops suggesting enteritis but improved compared to previous CT and subtle wall thickening of the right and mid colon and also sigmoid colon. Single gallstone in the
gallbladder.
Celiac panel was done in April 2024 and it was negative.
plan:
Tolerating low residual diet. Feeling better after having bowel movement yesterday and this a.m.
Okay to advance diet as tolerated
Continue simethicone /protonix
History of immune mediated colitis, due to get his vedolizumab in August 2024 at [facility].
Repeat Obstruction series -no obstruction
Dulcolax suppository as needed
Minimize opioid use
Encourage ambulation
Empirical treatment with rifaximin if symptom persists
No further recommendation at this point. Will sign off
Total Time Spent with Patient (in minutes): 35
Subjective
Subjective
Date of Service: August 26, 2024
Feeling better. Less bloated. Had BM yesterday and this a.m. Tolerating diet
Objective
Data Reviewed
Laboratory Data:
Laboratory Results
08/26/24 08:24
08/26/24 07:08
Laboratory Results
Magnesium 1.9 mg/dl (1.6-2.3) 08/26/24 07:08
Total Bilirubin 0.4 mg/dl (0.2-1.3) 08/17/24 11:24
AST 23 U/L (17-59) 08/17/24 11:24
ALT 21 U/L (0-50) 08/17/24 11:24
Alkaline Phosphatase 181 U/L (38-126) H 08/17/24 11:24
Lipase 69 U/L (23-300) 08/22/24 07:15
Vital Signs and I&O:
Vital Signs
Temp Pulse Resp BP Pulse Ox
98.3 F 75 18 104/58 95
08/26/24 15:00 08/26/24 15:00 08/26/24 15:00 08/26/24 15:00 08/26/24 15:00
I&O
08/25/24 08/26/24 08/27/24
06:59 06:59 06:59
Intake Total 1440 / 1440 1440 / 1440
Output Total 300 / 300 300 / 300
Balance 1140 / 1140 1140 / 1140
Physical Exam
Physical Exam
GI: Soft, Distended (Mildly distended) and Non Tender
[2024-08-26] MEDS: LOVENOX 40 MG SC (17:31)
[2024-08-26] MEDS: ELAVIL 20 MG PO (22:01)
[2024-08-26] MEDS: MELATONIN 3 MG PO (22:01)
[2024-08-26] MEDS: NORVASC 2.5 MG PO (22:05)
[2024-08-26 23:18] VITALS: BP 139/80
[2024-08-27] MEDS: SYNTHROID 137 MCG PO (05:12)
[2024-08-27 05:14] VITALS: BMI 24.2
[2024-08-27 06:19] LABS: Blood Urea Nitrogen 17 mg/dl (9-20); Calcium 8.2 mg/dl (8.4-10.2); Carbon Dioxide 23 mmol/L (22-30); Chloride 100 mmol/L (98-107); Estimated Creatinine Clearance 81 ml/min; Glucose 93 mg/dl (70-99); Sodium 131 mmol/L (135-145); eGFR > 60.00
[2024-08-27 06:21] LABS: Hematocrit 35.2 % (39.0-52.0); Hemoglobin 11.7 g/dL (13.0-18.0); Mean Corp Hgb Conc. 33.2 g/dL (33.0-37.0); Mean Corpuscular Hgb 28.6 pg (27.0-31.0); Mean Corpuscular Volume 86.1 fL (80.0-94.0); Mean Platelet Volume 10.1 fL (7.4-10.4); Platelet Count 622 10^3/uL (130-400); Red Blood Cell Count 4.09 10^6/uL (4.70-6.10); Red Cell Dist. Width 13.4 % (11.5-14.5); White Blood Cell Count 11.8 10^3/uL (4.8-10.8)
[2024-08-27 07:00] VITALS: BP 104/65
[2024-08-27] MEDS: VITAMIN B-12 1000 MCG PO (09:06)
[2024-08-27] MEDS: LIPITOR 40 MG PO (09:06)
[2024-08-27] MEDS: ZINC 50 MG PO (09:06)
[2024-08-27] MEDS: REFRESH EYE DROPS (PF) 1 DROPS OPHTH ×4 (09:06→22:16)
[2024-08-27] MEDS: VITAMIN B1 100 MG PO (09:06)
[2024-08-27] MEDS: DELTASONE 50 MG PO (09:06)
[2024-08-27] MEDS: PROTONIX 40 MG PO ×2 (09:06→21:05)
[2024-08-27] MEDS: VITAMIN D3 (cholecalciferol) 25 MCG PO (09:06)
[2024-08-27] MEDS: PEPCID 20 MG PO ×2 (09:06→21:05)
[2024-08-27] MEDS: COREG 3.125 MG PO ×2 (09:06→21:04)
[2024-08-27] MEDS: NEURONTIN 600 MG PO ×2 (09:06→21:04)
[2024-08-27] MEDS: TYLENOL 650 MG PO ×2 (09:15→21:06)
[2024-08-27] MEDS: ROXICODONE 5 MG PO ×2 (09:15→21:05)
[2024-08-27] MEDS: SPIRIVA RESPIMAT 2.5 MCG 2 PUFF INH (09:19)
[2024-08-27] MEDS: FLOVENT 44 MCG INHALER 2 PUFF INH ×2 (09:20→17:57)
[2024-08-27] MEDS: STRIVERDI RESPIMAT 2 PUFF INH (09:20)
[2024-08-27 10:15] VITALS: BP 104/65
--- NOTE | 2024-08-27 11:58 | W.PN.HOSP.TC ---
Today's Communication/Plan
-
d/c planning
Assessment / Plan
Assessment / Plan
pt is a 74 year old male
tolerating upgraded diet--hopeful d/c
Immune therapy related systemic complications--Presented with one episode of diarrhea at home with and body aches--Decreased appetite and weakness--apprec onc--cont steroids--apprec GI-- OBS series neg--Suspect leukocytosis may be secondary to
steroids. Afebrile--Improving
Abd/Pelvis CT: 08/17/2024
No findings to suggest central pulmonary embolism.
Small anterior pericardial effusion.
Small gastric diverticulum again seen.
Prominent gallbladder with at least one gallstone again identified. No findings to suggest biliary tract dilatation.
Fluid-filled stomach, fluid-filled loops of small bowel, some fluid-filled loops of large bowel as well as some small and large bowel wall enhancement,, few air-fluid levels, overall
Recurrent abdominal pain--Patient has recurrence of abdominal pain more focused in the epigastric area. He also feels bloated. Clinically he is distended with epigastric pain. Unclear if this is persistence of enteritis or developing ileus.
Tolerating low residue but wants more food-- No vomiting--Suspect his symptoms secondary to dyspepsia. Started Pepcid as well--Appreciate GI input-started on simethicone as well. If no improvement recommending HIDA scan. To consider empirical
treatment with Xifaxan--Somewhat improved intake but pt still symptomatic -follow GI recs
Right leg pain. Right calf is also swollen and tender- ultrasound of the leg shows no DVT but possible hematoma. cw symptomatic tx.
Possible ADALI--Patient had serum creatinine of 1.6 on admission most likely secondary to decreased perfusion urea creatinine ratio greater than 20--Patient receiving normal saline at 100 mL/h--Normalized creatinine--Encourage patient for oral intake
of fluids
Hyponatremia -mild -follow for now
Non-ischemic myocardial injury--Patient had no signs and symptoms of chest pain, syncope, shortness of breath--On admission in the ED the drop I was raised to 0.043--Monitor
metastatic melanoma on immunotherapy/severe peripheral neuropathy--Currently treated @ [facility] by Dr. Lauri Perales--Patient is on hydrocortisone 30 mg at home--Due to the worsening pain and symptoms patient started on prednisone 50 mg--Continue to
monitor and taper dose as tolerated
Other medical conditions
COPD-- continue albuterol HFA PRN, and Ellipta
HFmrEF--severe mitral regurgitation- hold furosemide - continue carvedilol - monitor daily weights and I&O's
hypothyroidism- continue levothyroxine
chronic headaches/migraines - continue amitriptyline-if persist can go for Neuro opinion
adrenal insufficiency
chronic/functional diarrhea
Code status: Full Code
DVT Prophylaxis: Lovenox Sq
DC home when ok from GI standpoint
Anticipated Discharge: Within 24 hours
Subjective/Interval History
-
Date of Service: August 27, 2024
pt with multiple c/o--RIVER, gas, bloating, pain despite tolerating diet
Objective Data
-
Labs:
Laboratory Results
08/27/24
04:36
WBC 11.8 H
Hgb 11.7 L
Hct 35.2 L
Plt Count 622 H D
Sodium 131 L
Potassium 4.0
Chloride 100
Carbon Dioxide 23
BUN 17
Creatinine 0.8
Glucose 93
Calcium 8.2 L
Vital Signs:
max temp for 24 hours
08/26/24
07:50
Temp 98.7 F
Vital Signs
Temp Pulse Resp BP Pulse Ox
97.4 F 71 18 104/65 98
08/27/24 07:00 08/27/24 09:21 08/27/24 09:21 08/27/24 07:00 08/27/24 09:21
I&O
08/26/24 08/27/24 08/28/24
06:59 06:59 06:59
Intake Total 1440 / 1440 1660 / 1660
Output Total 300 / 300 800 / 800
Balance 1140 / 1140 860 / 860
Review of Systems
-
All other systems: Reviewed and negative
Abdomen/GI: Reports Abdominal Pain, Bloated and Indigestion
Neuro: Reports Headache
Physical Exam
-
General: Well Developed, Well Nourished and No Apparent Distress
HEENT: Normocephalic and Atraumatic
Respiratory: Clear to Auscultation; Negative Wheezes or Rhonchi
Cardiac: Regular Rhythm and S1/S2; Negative Murmur
GI: Soft, Nontender, Normal Bowel Sounds and Distended
Musculoskeletal: No Clubbing, No Cyanosis and No Edema
Skin: Warm
Neuro: Awake
[2024-08-27] MEDS: COMPAZINE 10 MG PO (13:31)
--- NOTE | 2024-08-27 14:11 | W.PN.GI.CBS2 ---
Today's Communication / Plan
-
Continue current management
Assessment / Plan
-
74-year-old male with history of metastatic melanoma with recurrence, currently on immunotherapy with Opdualag , last dose 08/11/2024 initially presenting with fevers without any evidence of underlying infection and now with abdominal discomfort,
abdominal bloating, erratic bowel pattern with some incomplete evacuation and also diarrhea and abdominal imaging shows ileus like picture.
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 History of immune therapy related transaminitis, treated with steroids and got better.
History of multiple tubulovillous adenomas removed on colonoscopy in 2013.
-Upper abdominal discomfort with bloating
Abdominal imaging showing gallstones but symptoms not consistent with cholecystitis.
He does report more bloating/ Ileus noted as well.
He is taking oxycodone every 4 hours and this could be contributing to the ileus and bloating symptoms.
Limit narcotic use, need to ambulate.
Currently on low residue diet
Abd Xray without significant stool, no BM in last 24 hours but he admits to urgency; stool studies for norovirus neg
CT scan of the abdomen and pelvis with IV contrast 08/17/2024 showing evidence of gallstones, fluid-filled stomach and fluid-filled small bowel and large bowel suggesting enteritis or ileus. Repeat CT scan of the abdomen and pelvis with IV and oral
contrast 08/21/2024 showing wall thickening of the proximal to mid small bowel loops suggesting enteritis but improved compared to previous CT and subtle wall thickening of the right and mid colon and also sigmoid colon. Single gallstone in the
gallbladder.
Celiac panel was done in April 2024 and it was negative.
plan:
Tolerating regular diet without nausea vomiting or pain. Having bowel movements. Overall feeling better
Continue simethicone /protonix
History of immune mediated colitis, due to get his vedolizumab in August 2024 at [facility].
Repeat Obstruction series -no obstruction
Dulcolax suppository as needed
Minimize opioid use. I discussed with him opioids can cause various GI adverse reactions including gastroparesis, narcotic bowel etc.
Will encourage ambulation
Empirical treatment with rifaximin if symptom persists
No further recommendation at this point. Will sign off
Total Time Spent with Patient (in minutes): 35
Subjective
Subjective
Date of Service: August 27, 2024
Tolerating regular diet. Denies any nausea or vomiting. Had BM this a.m. as well. Less abdominal bloating.
Objective
Data Reviewed
Laboratory Data:
Laboratory Results
08/27/24 04:36
08/27/24 04:36
Laboratory Results
Magnesium 2.0 mg/dl (1.6-2.3) 08/27/24 04:36
Total Bilirubin 0.4 mg/dl (0.2-1.3) 08/17/24 11:24
AST 23 U/L (17-59) 08/17/24 11:24
ALT 21 U/L (0-50) 08/17/24 11:24
Alkaline Phosphatase 181 U/L (38-126) H 08/17/24 11:24
Lipase 69 U/L (23-300) 08/22/24 07:15
Vital Signs and I&O:
Vital Signs
Temp Pulse Resp BP Pulse Ox
97.4 F 71 18 104/65 98
08/27/24 07:00 08/27/24 09:21 08/27/24 09:21 08/27/24 07:00 08/27/24 09:21
I&O
08/26/24 08/27/24 08/28/24
06:59 06:59 06:59
Intake Total 1440 / 1440 1660 / 1660
Output Total 300 / 300 800 / 800
Balance 1140 / 1140 860 / 860
Physical Exam
Physical Exam
GI: Soft, Distended (Mildly distended) and Non Tender
[2024-08-27 15:00] VITALS: BP 100/62
[2024-08-27] MEDS: LOVENOX 40 MG SC (18:02)
[2024-08-27] MEDS: MYLICON 80 MG PO (21:06)
[2024-08-27 22:15] VITALS: BP 104/65
[2024-08-27] MEDS: ELAVIL 20 MG PO (22:16)
[2024-08-27] MEDS: MELATONIN 3 MG PO (22:17)
[2024-08-27] MEDS: NORVASC 2.5 MG PO (22:17)
[2024-08-28] MEDS: SYNTHROID 137 MCG PO (05:03)
[2024-08-28 07:44] VITALS: BP 117/67
[2024-08-28] MEDS: FLOVENT 44 MCG INHALER 2 PUFF INH (08:21)
[2024-08-28] MEDS: SPIRIVA RESPIMAT 2.5 MCG 2 PUFF INH (08:21)
[2024-08-28] MEDS: STRIVERDI RESPIMAT 2 PUFF INH (08:21)
[2024-08-28 09:04] LABS: Hematocrit 36.7 % (39.0-52.0); Hemoglobin 12.4 g/dL (13.0-18.0); Mean Corp Hgb Conc. 33.8 g/dL (33.0-37.0); Mean Corpuscular Hgb 29.7 pg (27.0-31.0); Mean Platelet Volume 9.2 fL (7.4-10.4); Platelet Count 741 10^3/uL (130-400); Red Blood Cell Count 4.17 10^6/uL (4.70-6.10); Red Cell Dist. Width 13.3 % (11.5-14.5)
--- NOTE | 2024-08-28 09:12 | W.PN.ONC2 ---
Today's Communication / Plan
-
discharge planning, OP follow up with primary oncologist
check iron studies
Impression
Impression
metastatic melanoma -on opdualag -resumed monthly Opdualag on 06/14/24 after 8 month tx holiday, last received 08/11
ICI toxicities with myalgias, neuropathies, endocrinopathies
diarrhea/enteritis/colitis -GI following
Large complex fluid collection in the medial soft tissues, possible hematoma or complex seroma
ocular toxicity with pain and difficulty seeing -management per optho
thrombocytosis, likely reactive
Plan
Plan
1. Metastatic melanoma - immunotherapy induced diarrhea
-cont prednisone
-supportive care
-follow clinically
-f/u at [facility] w/Dr. Lauri Perales
Subjective/Objective
Subjective
no new complaints
ambulating
moving bowels
Vital Signs:
Vital Signs
Temp Pulse Resp BP Pulse Ox
98.9 F 82 18 117/67 98
08/28/24 07:44 08/28/24 08:27 08/28/24 08:27 08/28/24 07:44 08/28/24 08:27
Lab Results:
Laboratory Data
WBC 15.0 10^3/uL (4.8-10.8) H 08/28/24 07:53
Hgb 12.4 g/dL (13.0-18.0) L 08/28/24 07:53
Plt Count 741 10^3/uL (130-400) H 08/28/24 07:53
eGFR > 60.00 08/27/24 04:36
Physical Exam
HEENT: Moist Mucous Membranes; No Jaundice
Cardiology: Normal Sinus Rhythm
Pulmonary: Clear
GI: Soft
Extremities: Pulses Present and b/l LE Edema
Neuro: Non Focal
Orders
Orders
Orders From Last 24 Hours
08/28/24 09:12
Add On- LAB Routine
[2024-08-28] MEDS: ROXICODONE 5 MG PO (09:16)
[2024-08-28] MEDS: VITAMIN B1 100 MG PO (09:17)
[2024-08-28] MEDS: DELTASONE 50 MG PO (09:17)
[2024-08-28] MEDS: LIPITOR 40 MG PO (09:17)
[2024-08-28] MEDS: COREG 3.125 MG PO (09:17)
[2024-08-28] MEDS: NEURONTIN 600 MG PO (09:18)
[2024-08-28] MEDS: PEPCID 20 MG PO (09:18)
[2024-08-28] MEDS: REFRESH EYE DROPS (PF) 1 DROPS OPHTH ×2 (09:18→13:49)
[2024-08-28] MEDS: VITAMIN D3 (cholecalciferol) 25 MCG PO (09:19)
[2024-08-28] MEDS: PROTONIX 40 MG PO (09:19)
[2024-08-28] MEDS: VITAMIN B-12 1000 MCG PO (09:19)
[2024-08-28] MEDS: ZINC 50 MG PO (09:19)
[2024-08-28 09:21] LABS: Blood Urea Nitrogen 18 mg/dl (9-20); Calcium 8.5 mg/dl (8.4-10.2); Carbon Dioxide 26 mmol/L (22-30); Chloride 96 mmol/L (98-107); Estimated Creatinine Clearance 65 ml/min; Glucose 91 mg/dl (70-99); Sodium 131 mmol/L (135-145); eGFR > 60.00
[2024-08-28 10:56] LABS: Reticulocyte Count 2.6 % (0.4-2.8)
[2024-08-28 11:07] LABS: Iron 53 ug/dl (49-181)
[2024-08-28 11:17] LABS: Percent Saturation 21 % (20-50); Total Iron Binding Capacity 249 ug/dl (261-462)
[2024-08-28 11:44] LABS: Ferritin 56.4 ng/ml (17.9-464.0)
--- NOTE | 2024-08-28 12:53 | VNURNOTE ---
Home Health Liaison spoke with patient to discuss [facility] nurse/therapy, visits, schedule and homebound status. Patient is agreeable and understands that visits at home will be 2-3 x per week to assess and teach medical management. Patient is aware
that [facility] will contact them for start of care in 1-2 days after discharge from . All questions answered. [facility] referral accepted in [facility].
--- NOTE | 2024-08-28 13:34 | W.PN.HOSP.TC ---
Addendum entered and electronically signed by Carolyn Blancas MD 08/28/24 20:28:
I saw and evaluated the patient independently. I reviewed the resident�s note and agree with findings and plan as documented by Dr. Paul.
GENERAL: well developed, well nourished, male in no apparent distress
HEENT: NC/AT
HEART: regular rate and rhythm, +S1, +S2
LUNGS : clear to auscultation bilaterally
ABDOM: soft, nontender, nondistended, + bowel sounds
EXT: no cyanosis, clubbing, or edema
NEUROLOGIC: grossly intact
OK for d/c
Immune therapy related systemic complications--Presented with one episode of diarrhea at home with and body aches--Decreased appetite and weakness--apprec onc--cont steroids--apprec GI-- OBS series neg--Suspect leukocytosis may be secondary to
steroids. Afebrile--Improving
Recurrent abdominal pain--Patient has recurrence of abdominal pain more focused in the epigastric area. He also feels bloated. Clinically he is distended with epigastric pain. Unclear if this is persistence of enteritis or developing ileus.
Tolerating low residue but wants more food-- No vomiting--Suspect his symptoms secondary to dyspepsia. Started Pepcid as well--Appreciate GI input-started on simethicone as well. To consider empirical treatment with Xifaxan--Somewhat improved
intake but pt still symptomatic -follow GI recs
Right leg pain. Right calf is also swollen and tender- ultrasound of the leg shows no DVT but possible hematoma. cw symptomatic tx.
Possible ADALI--Patient had serum creatinine of 1.6 on admission most likely secondary to decreased perfusion---Normalized creatinine--Encourage patient for oral intake of fluids
Hyponatremia -mild -follow for now
Non-ischemic myocardial injury--Patient had no signs and symptoms of chest pain, syncope, shortness of breath--On admission in the ED the drop I was raised to 0.043--Monitor
metastatic melanoma on immunotherapy/severe peripheral neuropathy--Currently treated @ [facility] by Dr. Lauri Perales--Patient is on hydrocortisone 30 mg at home--Due to the worsening pain and symptoms patient started on prednisone 50 mg--Continue to
monitor and taper dose as tolerated
Other medical conditions
COPD-- continue albuterol HFA PRN, and Ellipta
HFmrEF--severe mitral regurgitation- hold furosemide - continue carvedilol - monitor daily weights and I&O's
hypothyroidism- continue levothyroxine
chronic headaches/migraines - continue amitriptyline-if persist can go for Neuro opinion
adrenal insufficiency
chronic/functional diarrhea
Code status: Full Code
DVT Prophylaxis: Lovenox Sq
Original Note:
Today's Communication/Plan
-
Discharge
Assessment / Plan
Assessment / Plan
Impression
Patient is a 74 year old male with metastatic melanoma with lung mets and axillary lymph node dissection, admitted with possible delayed inflammatory response to Odualag. Patient complained of pain and bloating and epigastric region possibly
secondary to dyspepsia. Patient admitted for differential diagnosis of persistence of enteritis versus developing ileus.
Assessment/Plan
Immune therapy related systemic complications--persistent enteritis/developing ileitis
Presented with one episode of diarrhea at home with and body aches
Recurrent abdominal pain along with bloating in epigastric region
Patient responded well to Pepcid and simethicone
Abd/Pelvis CT: 08/17/2024
No findings to suggest central pulmonary embolism.
Small anterior pericardial effusion.
Small gastric diverticulum again seen.
Prominent gallbladder with at least one gallstone again identified. No findings to suggest biliary tract dilatation.
Fluid-filled stomach, fluid-filled loops of small bowel, some fluid-filled loops of large bowel as well as some small and large bowel wall enhancement,, few air-fluid levels, overall
Tolerating low residue diet well
GI consult appreciated-continue simethicone
Right leg and foot swelling
Ultrasound of the leg shows no deep venous thrombosis
Continue with symptomatic management
Patient reports no pain
Possible ADALI--
Patient had serum creatinine of 1.6 on admission most likely due to decreased perfusion
Resolved with fluids and oral intake
Hyponatremia
stable
Other medical conditions
metastatic melanoma on immunotherapy/severe peripheral neuropathy--Currently treated @ [facility] by Dr. Lauri Perales--Patient is on hydrocortisone 30 mg at home
COPD-- continue albuterol HFA PRN, and Ellipta
HFmrEF
hypothyroidism- continue levothyroxine
chronic headaches/migraines - continue amitriptyline-if persist can go for Neuro opinion
adrenal insufficiency
chronic/functional diarrhea
Code status: Full Code
DVT Prophylaxis: Lovenox Sq
Anticipated Discharge: Today
Subjective/Interval History
-
Date of Service: August 28, 2024
No active issues, patient reports improvement in pain and bowel movements
Objective Data
-
Labs:
Laboratory Results
08/28/24
07:53
WBC 15.0 H
Hgb 12.4 L
Hct 36.7 L
Plt Count 741 H
Sodium 131 L
Potassium 4.0
Chloride 96 L
Carbon Dioxide 26
BUN 18
Creatinine 1.0
Glucose 91
Calcium 8.5
Vital Signs:
Vital Signs
Temp Pulse Resp BP Pulse Ox
98.9 F 82 18 117/67 98
08/28/24 07:44 08/28/24 09:17 08/28/24 08:27 08/28/24 09:17 08/28/24 08:27
I&O
08/27/24 08/28/24 08/29/24
06:59 06:59 06:59
Intake Total 1660 / 1660 1680 / 1680
Output Total 800 / 800 700 / 700
Balance 860 / 860 980 / 980
Review of Systems
-
All other systems: Reviewed and negative
Physical Exam
-
General: Well Developed and Well Nourished
HEENT: Normocephalic and Atraumatic
Respiratory: Clear to Auscultation
Cardiac: Regular Rhythm and S1/S2
GI: Soft, Nontender and Normal Bowel Sounds
Musculoskeletal: No Clubbing, No Cyanosis and Other (Mild edema of right lower extremity and foot)
Skin: Warm
Neuro: Awake, Oriented and No Motor Deficits
Psych: Calm
[2024-08-28 14:26] VITALS: BP 144/96
--- NOTE | 2024-08-28 15:18 | CM ---
Patient seen at bedside with physician. IMM completed and signed form placed on chart. Patient for discharge home with [facility] to follow. CM will continue to follow for discharge planning needs.
Plan; home with [facility]
--- NOTE | 2024-08-28 15:34 | W.DCSUMMARY ---
Addendum entered and electronically signed by Carolyn Blancas MD 08/28/24 20:30:
Read, reviewed, and agree. See same day progress note for additional details. Time spent coordinating care, DC planning, review of DC plan of care with resident, transition of care, review of records in EMR, med rec, consults, notes, d/w
consultants, nursing, family, and CM = 40 minutes
Original Note:
Discharge Summary
Discharge Data
Date of Admission: 08/17/24
Date of Discharge: 08/28/24
-
Pending Results: No
Hospital Course
Discharging Physician :
Shine Peterson
Disposition :
Home
Primary care physician :
Jayesh Ma
Principal Discharge diagnosis :
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
Chronic Discharge diagnosis :
metastatic melanoma on immunotherapy with severe peripheral neuropathy
chronic obstructive pulmonary disease
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
hypothyroidism
chronic headaches and migraines
adrenal insufficiency
chronic functional diarrhea
Hospital Course :
Patient is a 74-year-old male with past medical history of metastatic melanoma with lung mets, had his last Opdualag dose on August 11, 2024, developed systemic inflammatory response, admitted to hospital due to immune reactions from Opdualag and
discharged on August 15, 2024
Readmitted on August 18, 2024 with complaints of headache blurred vision, abdominal pain/distention, nonischemic myocardial injury and right leg swelling and pain.
Problem #1 recurrence of abdominal pain post SIRS from Opdualag
Most likely patient has a delayed immune response to Opdualag
Based on CT of abdomen/pelvis there was suspicion of persistence of enteritis versus development of ileus, an obstruction series showed nonobstructive gaseous pattern
Patient managed symptomatically with Pepcid and simethicone to help with bloating and esophagitis
Patient responded well
Problem #2 right leg pain/swelling
Evaluated for DVT with ultrasound of the leg, which came back negative for any clots
Problem #3 ADALI
On admission patient's serum creatinine was 1.6 possibly due to decreased intake and poor perfusion
Patient was given IV fluids and then encouraged oral intake which helped to resolve the issue within 24 hours
Problem #4 nonischemic myocardial injury
Patient's troponin I peaked to 0.043 in the ED but then trended down
Patient denied any symptoms of chest pain syncope or shortness of breath further supporting nonischemic injury
Problem #5 headache blurred vision
Patient has had these headaches for several months, takes amitriptyline and acetaminophen
Cannot rule out primary headache versus immune reaction to Opdualag
Important imaging findings :
Abd/Pelvis CT: 08/17/2024
No findings to suggest central pulmonary embolism.
Small anterior pericardial effusion.
Small gastric diverticulum again seen.
Prominent gallbladder with at least one gallstone again identified. No findings to suggest biliary tract dilatation.
Fluid-filled stomach, fluid-filled loops of small bowel, some fluid-filled loops of large bowel as well as some small and large bowel wall enhancement,, few air-fluid levels
Chest x-ray August 25, 2024
FINDINGS:
There is right hilar linear atelectasis. The cardiomediastinal silhouette is within normal limits. Surgical clips project in the left axilla.
Nonobstructive bowel gas pattern. There is no evidence of pneumoperitoneum.
There is mild dextro convex curvature of the lumbar spine. Mild compression deformity of the L1 vertebral body, unchanged. Changes of likely prior right inguinal hernia repair
Abdominal x-ray August 22, 2024
FINDINGS:
Bowel: There is a nonobstructive bowel gas pattern. Minimal colonic stool burden.
Peritoneum: No evidence of pneumoperitoneum noting limited evaluation on this single supine view.
Osseous structures: No acute osseous abnormality. There is mild dextroconvex curvature of the lumbar spine. There is a mild compression deformity of the L1 vertebral body, unchanged.
Peripheral vascular ultrasound August 21, 2024
IMPRESSION: No evidence of deep venous thrombosis of the right lower extremity.
Large complex fluid collection in the medial soft tissues of the right calf without blood flow within. Hematoma or complex seroma would be to of several differential diagnostic possibilities.
Discharge Plan
-
Patient Disposition: Home with Home Care
Discharge Diagnosis/Procedures: Immune therapy related systemic complications with immune mediated enteritis/colitis, acute kidney injury, hyponatremia, nonischemic myocardial injury, metastatic melanoma on immunotherapy with severe peripheral
neuropathy, chronic obstructive pulmonary disease, history of mildly reduced ejection fraction congestive heart failure, hypothyroidism, chronic headaches and migraines, adrenal insufficiency, chronic functional diarrhea
Condition: Fair
Diet: As tolerated and Regular
Activity: As tolerated
Driving Restrictions: As prior to admission
Bathing Restrictions: None
Other Services: VN
Referrals:
Jayesh Ma PA [Family Provider] - in less than 1 week
Prescriptions:
New
oxycodone 5 mg Tablet
5 mg PO Q8HPRN PRN (Reason: moderate pain) Qty: 14 0RF
simethicone 80 mg Tablet,Chewable
80 mg PO TIDPRN 30 Days Qty: 30 0RF
famotidine 20 mg Tablet
20 mg PO BID 30 Days Qty: 60 0RF
Continued
pantoprazole [Protonix] 40 mg Tablet,Delayed Release (Dr/Ec)
40 mg PO DAILY
hydrocortisone 10 mg Tablet
20 mg PO DAILY
hydrocortisone 10 mg Tablet
10 mg PO DAILY@1400
Anoro Ellipta 62.5-25 mcg/actuation Blister With Device
1 inh INHALATION R DAILY
thiamine HCl (vitamin B1) 100 mg Tablet
100 mg PO DAILY
acetaminophen [Tylenol Extra Strength] 500 mg Tablet
1,000 mg PO Q6HPRN PRN (Reason: headache)
zinc sulfate 50 mg zinc (220 mg) Tablet
50 mg PO DAILY
cholecalciferol (vitamin D3) [Vitamin D3] 25 mcg (1,000 unit) Tablet
25 mcg PO DAILY
Arnuity Ellipta 100 mcg/actuation Blister With Device
1 inh INHALATION R DAILY
furosemide [Lasix] 40 mg tablet
40 mg PO DAILY Qty: 30 0RF
atorvastatin 40 mg Tablet
40 mg PO DAILY
cyanocobalamin (vitamin B-12) 1,000 mcg Tablet
1,000 mcg PO DAILY
amlodipine 2.5 mg Tablet
2.5 mg PO HS
prochlorperazine maleate 10 mg Tablet
10 mg PO TIDPRN PRN (Reason: headache)
potassium 99 mg Tablet
99 mg PO DAILY
amitriptyline 10 mg Tablet
20 mg PO HS
albuterol sulfate 90 mcg/actuation Hfa Aerosol Inhaler
2 puff INHALATION R Q4HPRN PRN (Reason: sob)
magnesium oxide 200 mg magnesium Tablet
100 mg PO SUMOTUTHSA
magnesium oxide 200 mg magnesium Tablet
200 mg PO WEFR
levothyroxine 137 mcg Tablet
137 mcg PO DAILY
carvedilol [Coreg] 3.125 mg Tablet
3.125 mg PO BID
gabapentin 300 mg Capsule
600 mg PO BID Qty: 120 0RF
Refresh Classic (PF) 1.4-0.6 % Dropperette
1 drops BOTH EYES QID 7 Days Qty: 1 0RF
Discontinued
oxycodone 5 mg tablet
5 mg PO BID PRN (Reason: pain) Qty: 10 0RF
Discharge Orders:
Discharge Patient (As Directed); Ordered 08/28/24
Ordered By: Shine Paul
Discharge Date and Time
Discharge Date/Time: 08/28/24 14:49
Print Language: MARTINIQUAIS
== END 2024-08-28 14:49 | disposition home health service (06) | DRG 683 ==
LOC: 4 WEST ACU 15:33
PROVIDERS: Internal Medicine; Nurse Practitioner; Nurse Practitioner Family; ADMITTING PHYSICIAN Student in an Organized Health Care Education/Training Program; ATTENDING PHYSICIAN Internal Medicine; CONSULT PHYSICIAN Internal Medicine Gastroenterology; EMERGENCY PHYSICIAN Student in an Organized Health Care Education/Training Program; FAMILY PHYSICIAN Physician Assistant; OTHER PHYSICIAN Internal Medicine Hematology & Oncology
DX: N17.9 Acute kidney failure, unspecified (principal); E27.40 Unspecified adrenocortical insufficiency; R65.10 Systemic inflammatory response syndrome (SIRS) of non-infectious origin without acute organ dysfunction; K56.7 Ileus, unspecified; K52.1 Toxic gastroenteritis and colitis; E87.1 Hypo-osmolality and hyponatremia; I5A Non-ischemic myocardial injury (non-traumatic); J98.11 Atelectasis; F17.200 Nicotine dependence, unspecified, uncomplicated; R62.7 Adult failure to thrive; G89.3 Neoplasm related pain (acute) (chronic); E87.6 Hypokalemia; K57.30 Diverticulosis of large intestine without perforation or abscess without bleeding; R63.0 Anorexia; E03.9 Hypothyroidism, unspecified; C43.9 Malignant melanoma of skin, unspecified; J44.9 Chronic obstructive pulmonary disease, unspecified; Z68.24 Body mass index [BMI] 24.0-24.9, adult
CPT/HCPCS: 71046; 71275; 74018; 74022; 74177; 80048; 80053; 82728; 83540; 83550; 83605; 83690; 83735; 84484; 85025; 85027; 85045; 87324; 87449; 87798; 89055; 92610; 93005; 93971; 94640; 96361; 96365; 96367; 96375; 96376; 99285; Q9967

== ENCOUNTER 2024-09-03 15:51 | Inpatient (IN) | payer OTHER, SELFPAY ==
[2024-09-03] VITALS (9 sets, daily range): BP systolic 87–109; BP diastolic 56–74; BMI 22.3
[2024-09-03] MEDS: ROXICODONE 10 MG PO (11:32)
[2024-09-03 11:58] LABS: COVID-19 Antigen Negative (Negative)
[2024-09-03 12:09] LABS: % Basophils 0.3 % (0-2); % Eosinophils 0.7 % (0-6); % Immature Granulocytes 1.7 % (0-0.5); % Lymphocytes 12.9 % (20.5-51.1); % Monocytes 6.1 % (1.7-9.3); % Neutrophils 78.3 % (42.2-75.2); Absolute Eosinophils 0.1 10^3/uL (0-0.7); Absolute Immature Granulocytes 0.3 10^3/uL (0-0.05); Absolute Monocytes 0.9 10^3/uL (0.1-0.6); Absolute Neutrophils 12.1 10^3/uL (1.4-6.5); Hematocrit 35.2 % (39.0-52.0); Hemoglobin 11.5 g/dL (13.0-18.0); Mean Corp Hgb Conc. 32.7 g/dL (33.0-37.0); Mean Corpuscular Hgb 29.3 pg (27.0-31.0); Mean Corpuscular Volume 89.8 fL (80.0-94.0); Nucleated Red Blood Cells % 0 % (-); Platelet Count 360 10^3/uL (130-400); Red Blood Cell Count 3.92 10^6/uL (4.70-6.10); Red Cell Dist. Width 13.7 % (11.5-14.5); White Blood Cell Count 15.4 10^3/uL (4.8-10.8)
[2024-09-03 12:24] LABS: ALT (SGPT) 11 U/L (0-50); AST (SGOT) 21 U/L (17-59); Albumin 2.5 g/dl (3.5-5.0); Alkaline Phosphatase 85 U/L (38-126); Blood Urea Nitrogen 11 mg/dl (9-20); Calcium 7.3 mg/dl (8.4-10.2); Carbon Dioxide 24 mmol/L (22-30); Chloride 99 mmol/L (98-107); Estimated Creatinine Clearance 79 ml/min; Glucose 61 mg/dl (70-99); Sodium 132 mmol/L (135-145); Total Bilirubin 0.7 mg/dl (0.2-1.3); Total Protein 4.5 g/dl (6.3-8.2); eGFR > 60.00
[2024-09-03 12:25] LABS: Lactic Acid 1.9 mmol/L (0.7-2.0)
--- NOTE | 2024-09-03 12:53 | ED.GENMED ---
History of Present Illness
<Anthony Asher PA-C - Last Filed: 09/03/24 16:10>
General
Chief Complaint: Generalized Pain
Time Seen by Provider: 09/03/24 11:07
History of Present Illness
History of Present Illness:
74-year-old male with history of metastatic melanoma on immunotherapy presents to the emergency department for evaluation generalized weakness and widespread pain. Was discharged in this hospital for similar complaints 5 days ago. 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 Denies any nausea vomiting or diarrhea. Lives at home alone, unable to get himself up and moving throughout his home. Denies any fevers. Was previously on high-dose steroids but
is not taken this in several days
Past History
<Anthony Asher PA-C - Last Filed: 09/03/24 16:10>
Past History
ED Past Medical History: Cancer (Lung cancer), COPD, GERD and Other (Alcohol abuse/tobacco abuse)
ED Past Surgical History: Other (hernia)
Social History
Tobacco: Smoker
Alcohol: Chronic alcoholic
Drug: None
Personal:
Living: with family
Employment: Retired
Family History
Family History: Other (Noncontributory)
Review of Systems
<Anthony Asher PA-C - Last Filed: 09/03/24 16:10>
Review of Systems
Allergies reviewed?: Yes
All Other Systems: ROS reviewed and negative except as documented in HPI and ROS
Phy Exam
<Anthony Asher PA-C - Last Filed: 09/03/24 16:10>
Physical Exam
Physical Exam:
GEN: Well appearing, NAD, WDWN
HEENT: Oral mucosa moist, no scleral icterus
Cardiac: Mildly tachycardic, regular
Lung: No respiratory distress, no tachypnea, lungs clear to auscultation however poor inspiratory effort
MSK: No gross deformity or injuries, right lower extremity edema noted previously
Skin: Good color, no pallor or jaundice, no rashes
Neuro: AO x3, moves all extremities freely
Psych: Calm, cooperative
Sepsis
<Anthony Asher PA-C - Last Filed: 09/03/24 16:10>
Sepsis Screening
Sepsis Assessment: Sepsis Ruled Out
Sepsis Screen
Sepsis Screen: Sepsis Ruled Out
Date: 09/03/24
Time: 16:10
Course
<Anthony Asher PA-C - Last Filed: 09/03/24 16:10>
Orders/Labs/Results
Orders:
Orders
09/03/24 11:16
Oxycodone [Roxicodone] 10 mg PO NOW STA
09/03/24 11:31
COVID-19 Antigen Urgent
Source: Nasal Swab
Influenza A+B Rapid Molecular Urgent
ALETHA Source: Nasal Swab
Specimen Description:
09/03/24 11:55
Complete Blood Count/With Diff Urgent
Comprehensive Metabolic Panel Urgent
Cortisol, Random Urgent
Comment: ADD ON
Lactate Level [Lactic Acid] Q4H
Blood Culture Urgent
ALETHA Source: Blood/Venous
Specimen Description:
09/03/24 13:51
Add On- LAB Urgent
Tests Added?: cortisol
0.9% Sodium Chloride 1000 ml [Nss] 1,000 ml IV BOLUS
Hydrocortisone Sod Succinate [Solu-Cortef] 100 mg IV NOW STA
09/03/24 14:20
Dextrose 10%/Water 500 ml [D10w] 250 ml IV 250 mls/hr
09/03/24 15:00
Dextrose 10%/Water 500 ml [D10w] 500 ml IV 250 mls/hr
09/03/24 15:27
HYDROmorphone [Dilaudid] 0.5 mg IV NOW STA
09/03/24 15:35
Admit/Transfer Patient As Directed
Co-Sign Provider:
Level of Care: Inpatient admission
Assign to:: Medical/Surgical
Physician / Group: htay
Diagnosis: Inadequate OP cancer pain control adrenal insufficiency Hypoglycemia
Reason for Hospitalization: Inadequate OP cancer pain control
adrenal insufficiency
Hypoglycemia
Expected length of stay greater than two midnights?: Yes
ELOS- Estimated Length of Stay in days: 3
I certify the patient meets the requirements for IP care: Yes
09/03/24 15:40
Code Status As Directed
Resuscitation Status: Full Code
Abnormal Lab Results
09/03/24 09/03/24 09/03/24
11:55 13:24 14:02
WBC 15.4 H 10^3/uL
(4.8-10.8)
RBC 3.92 L 10^6/uL
(4.70-6.10)
Hgb 11.5 L g/dL
(13.0-18.0)
Hct 35.2 L %
(39.0-52.0)
MCHC 32.7 L g/dL
(33.0-37.0)
Abs Immat Gran (auto) 0.3 H 10^3/uL
(0-0.05)
Absolute Neuts (auto) 12.1 H 10^3/uL
(1.4-6.5)
Absolute Monos (auto) 0.9 H 10^3/uL
(0.1-0.6)
Immature Gran % 1.7 H %
(0-0.5)
Neutrophils % 78.3 H %
(42.2-75.2)
Lymphocytes % 12.9 L %
(20.5-51.1)
Sodium 132 L mmol/L
(135-145)
Potassium 3.0 L mmol/L
(3.5-5.1)
Glucose 61 L mg/dl
(70-99)
Calcium 7.3 L mg/dl
(8.4-10.2)
Total Protein 4.5 L g/dl
(6.3-8.2)
Albumin 2.5 L g/dl
(3.5-5.0)
POC Glucose 51 L* mg/dl 57 L mg/dl
(70-99) (70-99)
09/03/24
15:22
WBC
RBC
Hgb
Hct
MCHC
Abs Immat Gran (auto)
Absolute Neuts (auto)
Absolute Monos (auto)
Immature Gran %
Neutrophils %
Lymphocytes %
Sodium
Potassium
Glucose
Calcium
Total Protein
Albumin
POC Glucose 235 H mg/dl
(-)
09/03/24 11:55
09/03/24 11:55
Vital Signs
Initial and Last Documented VS:
Initial Vital Signs
Pulse Resp BP Pulse Ox
110 20 87/74 96
09/03/24 10:45 09/03/24 10:45 09/03/24 10:45 09/03/24 10:45
Last Documented Vital Signs
Temp Pulse Resp BP Pulse Ox
98.2 F 94 16 99/71 95
09/03/24 12:43 09/03/24 15:30 09/03/24 15:37 09/03/24 15:00 09/03/24 15:37
<Jayesh Zuñiga, DO - Last Filed: 09/03/24 13:51>
Orders/Labs/Results
Orders:
Orders
09/03/24 11:16
Oxycodone [Roxicodone] 10 mg PO NOW STA
09/03/24 11:31
COVID-19 Antigen Urgent
Source: Nasal Swab
Influenza A+B Rapid Molecular Urgent
ALETHA Source: Nasal Swab
Specimen Description:
09/03/24 11:55
Complete Blood Count/With Diff Urgent
Comprehensive Metabolic Panel Urgent
Cortisol, Random Urgent
Comment: ADD ON
Lactate Level [Lactic Acid] Q4H
Blood Culture Urgent
ALETHA Source: Blood/Venous
Specimen Description:
09/03/24 13:51
Add On- LAB Urgent
Tests Added?: cortisol
0.9% Sodium Chloride 1000 ml [Nss] 1,000 ml IV BOLUS
Hydrocortisone Sod Succinate [Solu-Cortef] 100 mg IV NOW STA
09/03/24 14:20
Dextrose 10%/Water 500 ml [D10w] 250 ml IV 250 mls/hr
09/03/24 15:00
Dextrose 10%/Water 500 ml [D10w] 500 ml IV 250 mls/hr
09/03/24 15:27
HYDROmorphone [Dilaudid] 0.5 mg IV NOW STA
09/03/24 15:35
Admit/Transfer Patient As Directed
Co-Sign Provider:
Level of Care: Inpatient admission
Assign to:: Medical/Surgical
Physician / Group: htay
Diagnosis: Inadequate OP cancer pain control adrenal insufficiency Hypoglycemia
Reason for Hospitalization: Inadequate OP cancer pain control
adrenal insufficiency
Hypoglycemia
Expected length of stay greater than two midnights?: Yes
ELOS- Estimated Length of Stay in days: 3
I certify the patient meets the requirements for IP care: Yes
09/03/24 15:40
Code Status As Directed
Resuscitation Status: Full Code
Abnormal Lab Results
09/03/24 09/03/24 09/03/24
11:55 13:24 14:02
WBC 15.4 H 10^3/uL
(4.8-10.8)
RBC 3.92 L 10^6/uL
(4.70-6.10)
Hgb 11.5 L g/dL
(13.0-18.0)
Hct 35.2 L %
(39.0-52.0)
MCHC 32.7 L g/dL
(33.0-37.0)
Abs Immat Gran (auto) 0.3 H 10^3/uL
(0-0.05)
Absolute Neuts (auto) 12.1 H 10^3/uL
(1.4-6.5)
Absolute Monos (auto) 0.9 H 10^3/uL
(0.1-0.6)
Immature Gran % 1.7 H %
(0-0.5)
Neutrophils % 78.3 H %
(42.2-75.2)
Lymphocytes % 12.9 L %
(20.5-51.1)
Sodium 132 L mmol/L
(135-145)
Potassium 3.0 L mmol/L
(3.5-5.1)
Glucose 61 L mg/dl
(70-99)
Calcium 7.3 L mg/dl
(8.4-10.2)
Total Protein 4.5 L g/dl
(6.3-8.2)
Albumin 2.5 L g/dl
(3.5-5.0)
POC Glucose 51 L* mg/dl 57 L mg/dl
(70-99) (70-99)
09/03/24
15:22
WBC
RBC
Hgb
Hct
MCHC
Abs Immat Gran (auto)
Absolute Neuts (auto)
Absolute Monos (auto)
Immature Gran %
Neutrophils %
Lymphocytes %
Sodium
Potassium
Glucose
Calcium
Total Protein
Albumin
POC Glucose 235 H mg/dl
(70-99)
09/03/24 11:55
09/03/24 11:55
Vital Signs
Initial and Last Documented VS:
Initial Vital Signs
Pulse Resp BP Pulse Ox
110 20 87/74 96
09/03/24 10:45 09/03/24 10:45 09/03/24 10:45 09/03/24 10:45
Last Documented Vital Signs
Temp Pulse Resp BP Pulse Ox
98.2 F 94 16 99/71 95
09/03/24 12:43 09/03/24 15:30 09/03/24 15:37 09/03/24 15:00 09/03/24 15:37
<Anthony Asher PA-C - Last Filed: 09/03/24 16:10>
MDM/Problems Addressed
MDM/Problems Addressed:
Patient is unfortunately not capable of caring for himself at this time and pain is quite difficult to control. Likely cancer related pain however his alk phos is normal so there is no clear evidence of bony lysis. Will admit to the hospitalist
service for further management
<Anthony Asher PA-C - Last Filed: 09/03/24 16:10>
*Critical Care Note
Total Time (30-74mins, 75-104mins- exclusive of procedures): Not Applicable
ED Attending Note
<Anthony Asher PA-C - Last Filed: 09/03/24 16:10>
-
Portions of this chart may have been created with voice recognition software.� Occasional wrong word or��sound alike� substitutions may have occurred due to the inherent limitations of voice recognition software.
<Jayesh Zuñiga DO - Last Filed: 09/03/24 13:51>
ED Attending Note
Patient seen and examined by attending physician: Yes
I performed a history and physical exam of patient and discussed management with resident, I reviewed resident's note and agree with documented findings and plan of care.: Yes
ED Attending Note:
Seen with PA examined independently 74-year-old male with neuropathy previously on steroids., Started on chronic narcotics, presents with fatigue low blood pressure, aches, states he was not weaned off of steroids but was not on a [place] long need
to confirm this, patient states he feels too weak to go home,
Discharge Plan
Departure
Patient Disposition: Admit
Date of Disposition: 09/03/24
Time of Disposition: 14:14
Admit to: Med/Surg
Presentation/result/management discussed w/ accepting MD/DO: Hospitalist
Discharge Problem:
Cancer related pain
Interventions
Interventions:
*Risk Screen - Suicide Last Done: 09/03/24 11:15
*General Assessment Last Done: 09/03/24 11:15
*Neglect/Abuse Screening Last Done: 09/03/24 11:15
ED- Fall Risk Assessment Last Done: 09/03/24 11:15
*ED COVID-19 Vaccine History Last Done: 09/03/24 11:15
[2024-09-03 13:25] LABS: Glucose - Point of Care 51 mg/dl (70-99)
[2024-09-03 14:03] LABS: Glucose - Point of Care 57 mg/dl (70-99)
[2024-09-03] MEDS: SOLU-CORTEF 100 MG IV (14:15)
[2024-09-03] MEDS: D10W 250 IV (14:21)
[2024-09-03 15:23] LABS: Glucose - Point of Care 235 mg/dl (70-99)
[2024-09-03] MEDS: NSS 1000 IV (15:25)
--- NOTE | 2024-09-03 15:29 | HPS.HSE ---
Family Physician
-
Family Physician: MAY Ortiz
Chief Complaint
-
generalized weakness and widespread pain.
History of Present Illness
74M HX metastatic melanoma with recurrence, currently on immunotherapy with Opdualag , last dose 08/11/2024 seen at ER;
- evaluation generalized weakness and widespread pain.
- Was discharged in this hospital for similar complaints 5 days ago.
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
- Lives at home alone, unable to get himself up and moving throughout his home.
- Was previously on high-dose steroids but is not taken this in several days
ROS:
Denies any nausea vomiting or diarrhea. Denies any fevers.
Medical History
Past Medical History
Past Medical History: Reports Other
Additional Past Medical History:
metastatic melanoma on immunotherapy
COPD
severe mitral regurgitation
hypothyroidism
adrenal insufficiency
severe peripheral neuropathy
chronic headaches/migraines
chronic/functional diarrhea
Past Surgical History: Reports Other
Additional Past Surgical History:
melanoma excision
hernia repair x2
Social History
Tobacco: Former Smoker (wuit 1 year ago, >50 pack year history)
Alcohol: Former (quit 1 year ago)
Drug: Former User
Personal: Single
Living: Alone
Employment: Not Employed
Family History
Family History: Not pertinent
Allergies / Home Medications
Allergies reflects when Allergies were last updated in [email or web address].
Home Medications with original date entered in [email or web address]
Allergy/Medication List:
Allergies
Allergy/AdvReac Type Severity Reaction Status Date / Time
No Known Allergies Allergy Verified 08/17/24 09:42
Home Medications
hydrocortisone 10 mg tablet 10 mg PO DAILY@1400 Anti-Inflammatory 11/20/23
hydrocortisone 10 mg tablet 20 mg PO DAILY Anti-Inflammatory 11/20/23
pantoprazole 40 mg tablet,delayed release (Protonix) 40 mg PO DAILY Gastrointestinal Issue 11/20/23
umeclidinium 62.5 mcg-vilanterol 25 mcg/actuation powdr for inhalation (Anoro Ellipta) 1 inh inhalation R DAILY Lung/Breathing Issues 11/20/23
thiamine HCl (vitamin B1) 100 mg tablet 100 mg PO DAILY Supplement 03/04/24
acetaminophen 500 mg tablet (Tylenol Extra Strength) 1,000 mg PO Q6HPRN PRN headache 03/08/24
cholecalciferol (vitamin D3) 25 mcg (1,000 unit) tablet (Vitamin D3) 25 mcg PO DAILY Supplement 03/08/24
fluticasone furoate 100 mcg/actuation blister powder for inhalation (Arnuity Ellipta) 1 inh inhalation R DAILY Lung/Breathing Issues 03/08/24
zinc sulfate 50 mg zinc (220 mg) tablet 50 mg PO DAILY Supplement 03/08/24
furosemide 40 mg tablet (Lasix) 40 mg PO DAILY #30 tabs 03/10/24
gabapentin 300 mg capsule 600 mg (2 x 300 mg) PO BID #120 caps 04/30/24
albuterol sulfate 90 mcg/actuation aerosol inhaler 2 puff inhalation R Q4HPRN PRN sob 08/10/24
amitriptyline 10 mg tablet 20 mg PO HS Mental Health/Anxiety 08/10/24
amlodipine 2.5 mg tablet 2.5 mg PO HS Blood Pressure 08/10/24
atorvastatin 40 mg tablet 40 mg PO DAILY High Cholesterol 08/10/24
cyanocobalamin (vitamin B-12) 1,000 mcg tablet 1,000 mcg PO DAILY Supplement 08/10/24
magnesium oxide 100 mg PO SUMOTUTHSA Electrolyte Repletion 08/10/24
magnesium oxide 200 mg PO WEFR Electrolyte Repletion 08/10/24
potassium 99 mg tablet 99 mg PO DAILY Electrolyte Repletion 08/10/24
prochlorperazine maleate 10 mg tablet 10 mg PO TIDPRN PRN headache 08/10/24
levothyroxine 137 mcg tablet 137 mcg PO DAILY Thyroid 08/13/24
oxycodone 5 mg tablet 5 mg PO BID PRN pain #10 tabs 08/15/24
polyvinyl alcohol-povidone (PF) 1.4 %-0.6 % eye drops in a dropperette (Refresh Classic (PF)) 1 drops BOTH EYES QID 7 days #1 ea 08/15/24
carvedilol 3.125 mg tablet (Coreg) 3.125 mg PO BID 08/17/24
Review of Systems
-
Constitutional: Reports Fatigue and Other (diffuse pain )
EENT: Reports No Symptoms
Respiratory: Reports No Symptoms
Cardiac: Reports No Symptoms
Abdomen/GI: Reports No Symptoms
: Reports No Symptoms
Musculoskeletal: Reports No Symptoms
Skin: Reports No Symptoms
Neurological: Reports No Symptoms
Endocrine: Reports No Symptoms
Hematologic/Lymphatic: Reports No Symptoms
Psych: Reports No Symptoms
Physical Exam
Vital Signs
Vital Signs
Temp Pulse Resp BP Pulse Ox
98.2 F 97 15 99/71 96
09/03/24 12:43 09/03/24 15:15 09/03/24 15:15 09/03/24 15:00 09/03/24 13:45
Physical Exam
General: Well Developed, Well Nourished, Pain and Poor Appetite
HEENT: NormoCephalic, Moist mucous membranes, Atraumatic, [place] Conjunctivae, Nose Appears Normal and Ears Appear Normal
Respiratory: Clear and Non Labored Respirations
Cardiac: S1/S2, Regular Rhythm and Tachycardia; No Murmur, Rub or Gallop
Breast: Deferred by me
GI: Soft, Normal Bowel Sounds (hyperactive) and Tender; No Organomegaly
Rectal: Deferred by Provider
Genito-urinary: Deferred by me
Musculoskeletal: No Clubbing, No Cyanosis and No Edema
Skin: Warm and IV/Catheter Site; No Rash
Neuro: Awake, Alert and Nonfocal/grossly intact
Hematologic/Lymphatic: No Lymphadenopathy
Psych: Calm and Confused (confusion noted with time)
Laboratory Results
-
09/03/24 11:55
09/03/24 11:55
Laboratory Results
Lactic Acid Cancelled 09/03/24 15:00
Total Bilirubin 0.7 mg/dl (0.2-1.3) 09/03/24 11:55
AST 21 U/L (17-59) 09/03/24 11:55
ALT 11 U/L (0-50) 09/03/24 11:55
Alkaline Phosphatase 85 U/L (38-126) 09/03/24 11:55
Data Reviewed
-
Lab Data: Labs Reviewed by me
Old Records: Reviewed
Impression/Plan
-
Data
Laboratory Tests
08/28/24 09/03/24
07:53 11:55
WBC 15.0 H 15.4 H
Hgb 12.4 L 11.5 L
Plt Count 741 H 360 D
Sodium 131 L 132 L
Potassium 3.0 L
eGFR > 60.00
Glucose 61 L
Calcium 7.3 L
Albumin 2.5 L
BCx sent
Last hospitalist admission: Date of Admission: 08/17/24 - Date of Discharge: 08/28/24
Principal Discharge diagnosis :
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
- acute kidney injury
- hyponatremia
- nonischemic myocardial injury
Chronic Discharge diagnosis :
metastatic melanoma on immunotherapy with severe peripheral neuropathy
chronic obstructive pulmonary disease
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
hypothyroidism
chronic headaches and migraines
adrenal insufficiency
chronic functional diarrhea
Abd/Pelvis CT: 08/17/2024
No findings to suggest central pulmonary embolism. Small anterior pericardial effusion.
Small gastric diverticulum again seen.
Prominent gallbladder with at least one gallstone again identified. No findings to suggest biliary tract dilatation.
Fluid-filled stomach, fluid-filled loops of small bowel, some fluid-filled loops of large bowel as well as some small and large bowel wall enhancement,, few air-fluid levels, overall
ASSESSMENT & PLAN
Inadequate OP cancer pain control with Oxycodone 5 mg q8h prn and not taking hi dose steroids
Metastatic melanoma on immunotherapy/severe peripheral neuropathy
Currently treated @ [facility] by Dr. Lauri Perales
Recent HX Right leg pain ; Recent NEG Sono for DVT of PALOMA; associated acut gait dysfunction
Of note: on hydrocortisone 30 mg at home then due to the worsening pain and symptoms patient started on prednisone 50 mg
- stress dose IV hydrocortisone 100mg follow by 50mg q12h
- Hold [employer] PO hydrocortisone
- [place] Oxycodone to 10mg q6h prn
Weakness
Hypoglycemia
HX adrenal insufficiency
- s/p IV HC 100 mg x 1 at ER
- resume PO Prednisone
HX recurrent abdominal pain; unclear if this is persistence of enteritis or developing ileus.
Tolerating low residue prior to DC
HX suspected of dyspepsia
- Pepcid and on simethicone as well
Recent HX Immune therapy related systemic complications
Hyponatremia
-mild -follow for now
NIMI on last admission
COPD; stable
- cont. albuterol HFA PRN, and Ellipta
HX HFmrEF- with severe mitral regurgitation
- stable
- on furosemide
- continue carvedilol
- monitor daily weights and I&O's
Hypothyroidism
- continue levothyroxine
chronic headaches/migraines
- continue amitriptyline-if persist can go for Neuro opinion
DVT Px: LMWH
Code: Full
IP MS
[2024-09-03] MEDS: DILAUDID 0.5 MG IV ×2 (15:33→20:05)
[2024-09-03] MEDS: LOVENOX 40 MG SC (20:03)
[2024-09-03] MEDS: NEURONTIN 600 MG PO (20:04)
[2024-09-03] MEDS: COREG 3.125 MG PO (20:04)
[2024-09-03] MEDS: PEPCID 20 MG PO (20:05)
[2024-09-03] MEDS: FLOVENT 44 MCG INHALER 2 PUFF INH (21:22)
--- NOTE | 2024-09-03 22:30 | PTCARENOTE ---
Pt received from ED via stretcher. Assisted to bed x1, generalized weakness. AAOx3 slightly forgetful to details. Oriented to surroundings and plan of care discussed. Admission and assessment completed (refer to worklist). Stood at bedside x2
to void. c/o headache and bilateral leg pain, medicated per MD order (refer to MAR). Able to take pills w/water and boxed lunch provided. Call ha within reach
[2024-09-03] MEDS: ELAVIL 20 MG PO (22:54)
[2024-09-03] MEDS: SOLU-CORTEF 50 MG IV (22:54)
[2024-09-03] MEDS: TYLENOL 1000 MG PO (22:55)
[2024-09-04 06:00] VITALS: BMI 23.3
[2024-09-04] MEDS: SYNTHROID 137 MCG PO (06:16)
[2024-09-04] MEDS: STRIVERDI RESPIMAT 2 PUFF INH (07:18)
[2024-09-04] MEDS: SPIRIVA RESPIMAT 2.5 MCG 2 PUFF INH (07:18)
[2024-09-04] MEDS: FLOVENT 44 MCG INHALER 2 PUFF INH ×2 (07:18→19:33)
[2024-09-04 07:35] VITALS: BP 96/56
[2024-09-04] MEDS: NEURONTIN 600 MG PO ×2 (08:10→22:08)
[2024-09-04] MEDS: PROTONIX 40 MG PO (08:10)
[2024-09-04] MEDS: PEPCID 20 MG PO ×2 (08:10→22:08)
[2024-09-04] MEDS: MAGNESIUM OXIDE 500 MG PO (08:10)
[2024-09-04] MEDS: LASIX 40 MG PO (08:11)
[2024-09-04] MEDS: SOLU-CORTEF 50 MG IV (08:12)
[2024-09-04] MEDS: COREG 3.125 MG PO ×2 (08:16→22:09)
[2024-09-04] MEDS: DILAUDID 0.5 MG IV (08:20)
--- NOTE | 2024-09-04 08:48 | VNURNOTE ---
Chart reviewed. Patient [facility]. Will continue to follow hospital course and DC plans.
[2024-09-04 09:14] LABS: Hematocrit 29.5 % (39.0-52.0); Hemoglobin 10.2 g/dL (13.0-18.0); Mean Corp Hgb Conc. 34.6 g/dL (33.0-37.0); Mean Corpuscular Hgb 29.4 pg (27.0-31.0); Mean Platelet Volume 9.3 fL (7.4-10.4); Platelet Count 332 10^3/uL (130-400); Red Blood Cell Count 3.47 10^6/uL (4.70-6.10); Red Cell Dist. Width 13.6 % (11.5-14.5)
[2024-09-04 09:16] LABS: ALT (SGPT) 10 U/L (0-50); AST (SGOT) 19 U/L (17-59); Albumin 2.4 g/dl (3.5-5.0); Alkaline Phosphatase 90 U/L (38-126); Blood Urea Nitrogen 11 mg/dl (9-20); Calcium 7.8 mg/dl (8.4-10.2); Carbon Dioxide 23 mmol/L (22-30); Chloride 97 mmol/L (98-107); Estimated Creatinine Clearance 72 ml/min; Glucose 121 mg/dl (70-99); Magnesium 1.7 mg/dl (1.6-2.3); Phosphorus 4.1 mg/dl (2.5-4.5); Potassium 3.6 mmol/L (3.5-5.1); Sodium 131 mmol/L (135-145); Total Bilirubin 0.4 mg/dl (0.2-1.3); Total Protein 4.5 g/dl (6.3-8.2); eGFR > 60.00
[2024-09-04] MEDS: TYLENOL 1000 MG PO ×2 (11:08→17:21)
[2024-09-04] MEDS: SENOKOT-S 1 TABLET PO (11:08)
--- NOTE | 2024-09-04 13:27 | W.PN.HOSP.TC ---
Addendum entered and electronically signed by Bacilio Brannon MD 09/04/24 14:11:
as per conversation with [facility] - patient with significant Hx of alcohol abuse, long standing LE pain and headaches with neg MRI last fall. Due to continued pain in LE with radiculopathic symptoms and melanoma- was scheduled for lumbar MRI to eval
cord compression/metastasis but never made it. Reasonable to complete inpatient as pain is the main reason for hospitalization
Head CT not needed with recent neg MRI zach
Original Note:
Today's Communication/Plan
-
see pn
Assessment / Plan
Assessment / Plan
74yo M with PMhx of metastatic melanoma, COPD, neuropathy followed by [facility], recent admission with ADALI and ileus came with significant b/l LE pains to the point that he was not able to ambulate at home. Also found significant constipation
A/P:
#Acute on chronic pain 2/2 metastatic CA
pain mgmt
PT/OT
#RLE swelling
chronic
repeat US LE reasonable
#Anemia 2/2 CA
monitor
#Headaches
acute on chronic
CT head
#Chronic back pain
was scheduled for MRI back with [facility] - will discuss with [facility] - [phone]
#Opioid induced constipation
had BM next day after admission
Laxatives
#Neuropathy
cont home meds
#Iatrogenic adrenal insufficiency
No signs of adrenal crisis
cont home meose steroids
#Essential HTN
#Chronic HFmrEF
stop Norvasc
cont carvedilol
cont Furosemide
#Hypothyroidism
TSH 16.8 - increase Synthroid and repeat TSH in 2-4 weeks with PCP
#COPD, not in exacerbation
cont bronchodilators
#mild hyponatremia
follow BMP
DVT ppx Lovenox
Full code
I have spent at least 59min reviewing chart, test results, communication with consultants and direct patient care
Anticipated Discharge: 24 - 48 hours
Subjective/Interval History
-
Date of Service: September 04, 2024
Objective Data
-
Labs:
Laboratory Results
09/04/24
08:40
WBC 11.0 H
Hgb 10.2 L
Hct 29.5 L
Plt Count 332
Sodium 131 L
Potassium 3.6
Chloride 97 L
Carbon Dioxide 23
BUN 11
Creatinine 0.9
Glucose 121 H
Calcium 7.8 L
Total Bilirubin 0.4
AST 19
ALT 10
Alkaline Phosphatase 90
Vital Signs:
Vital Signs
Temp Pulse Resp BP Pulse Ox
97.8 F 70 16 95/56 96
09/04/24 07:35 09/04/24 08:16 09/04/24 07:35 09/04/24 08:16 09/04/24 07:35
I&O
09/03/24 09/04/24 09/05/24
06:59 06:59 06:59
Intake Total 980 / 980
Output Total 450 / 450
Balance 530 / 530
Review of Systems
-
History Source: Patient
All other systems: Reviewed and negative
Physical Exam
-
General: Pain
HEENT: Normocephalic
Respiratory: Clear to Auscultation
Cardiac: Regular Rhythm
GI: Soft, Nontender and Nondistended
Musculoskeletal: No Clubbing, No Cyanosis and No Edema
Neuro: Awake, Alert, Oriented and AO x 3
Psych: Calm
[2024-09-04] MEDS: MAGNESIUM SULFATE 50 IV (14:11)
[2024-09-04] MEDS: MIRALAX 17 GRAMS PO (14:12)
[2024-09-04] MEDS: CORTEF 10 MG PO (14:14)
[2024-09-04] MEDS: DILAUDID 2 MG PO ×2 (14:28→20:08)
[2024-09-04 15:47] VITALS: BP 100/63
[2024-09-04] MEDS: LOVENOX 40 MG SC (17:13)
--- NOTE | 2024-09-04 17:20 | CM ---
business support manager reviewed patient's chart and met with patient and patient resides in a converted barn, with 17 steps to enter, patient is current with [facility] and per patient he has recently qualified for WAIVER services in home.
PCP: Dr. Ma
Pharmacy [facility]
Plan; Home with [facility] when stable.
--- NOTE | 2024-09-04 19:06 | PTCARENOTE ---
Pt vomited about 300 ml brown liquid emesis, states he feels better.
--- NOTE | 2024-09-04 21:03 | PTCARENOTE ---
Pt transported to MRI on stretcher via PCT. Medicated w/PO dilaudid prior to transfer.
[2024-09-04] MEDS: SENOKOT-S PO (22:07)
[2024-09-04] MEDS: ELAVIL 20 MG PO (22:08)
[2024-09-04 22:54] VITALS: BP 106/66
[2024-09-05] MEDS: DILAUDID 2 MG PO ×4 (03:18→21:30)
[2024-09-05] MEDS: SYNTHROID 150 MCG PO (05:42)
[2024-09-05 05:46] VITALS: BMI 23.1
[2024-09-05 07:00] VITALS: BP 117/82
[2024-09-05] MEDS: SPIRIVA RESPIMAT 2.5 MCG 2 PUFF INH (07:10)
[2024-09-05] MEDS: STRIVERDI RESPIMAT 2 PUFF INH (07:10)
[2024-09-05] MEDS: FLOVENT 44 MCG INHALER 2 PUFF INH ×2 (07:10→20:25)
[2024-09-05 07:26] LABS: % Basophils 0.2 % (0-2); % Eosinophils 0.6 % (0-6); % Immature Granulocytes 0.6 % (0-0.5); % Lymphocytes 24.1 % (20.5-51.1); % Neutrophils 63.5 % (42.2-75.2); Absolute Lymphocytes 1.5 10^3/uL (1.2-3.4); Absolute Monocytes 0.7 10^3/uL (0.1-0.6); Hematocrit 28.9 % (39.0-52.0); Hemoglobin 10.3 g/dL (13.0-18.0); Mean Corp Hgb Conc. 35.6 g/dL (33.0-37.0); Mean Corpuscular Volume 84.3 fL (80.0-94.0); Mean Platelet Volume 9.3 fL (7.4-10.4); Nucleated Red Blood Cells % 0 % (-); Platelet Count 357 10^3/uL (130-400); Red Blood Cell Count 3.43 10^6/uL (4.70-6.10); Red Cell Dist. Width 13.2 % (11.5-14.5); White Blood Cell Count 6.3 10^3/uL (4.8-10.8)
[2024-09-05] MEDS: MIRALAX 17 GRAMS PO (07:57)
[2024-09-05] MEDS: COREG 3.125 MG PO ×2 (07:58→21:31)
[2024-09-05] MEDS: NEURONTIN 600 MG PO ×2 (07:58→21:31)
[2024-09-05] MEDS: MAGNESIUM OXIDE 500 MG PO (07:58)
[2024-09-05] MEDS: PROTONIX 40 MG PO (07:58)
[2024-09-05] MEDS: PEPCID 20 MG PO ×2 (07:58→21:31)
[2024-09-05] MEDS: LASIX 40 MG PO (07:58)
[2024-09-05] MEDS: CORTEF 20 MG PO (07:59)
[2024-09-05] MEDS: SENOKOT-S PO (07:59)
[2024-09-05] MEDS: REFRESH EYE DROPS (PF) 1 DROPS BOTH EYES ×4 (07:59→21:31)
[2024-09-05 08:06] LABS: Blood Urea Nitrogen 15 mg/dl (9-20); Carbon Dioxide 28 mmol/L (22-30); Chloride 96 mmol/L (98-107); Estimated Creatinine Clearance 72 ml/min; Glucose 102 mg/dl (70-99); Sodium 131 mmol/L (135-145); eGFR > 60.00
[2024-09-05] MEDS: ZOFRAN 4 MG IV (08:07)
[2024-09-05 10:05] VITALS: BP 109/67; BP 109/77; PULSE 77
[2024-09-05] MEDS: MAGNESIUM SULFATE 100 IV (10:28)
[2024-09-05] MEDS: KCL 40 MEQ PO (10:31)
--- NOTE | 2024-09-05 11:41 | W.PN.HOSP.TC ---
Addendum entered and electronically signed by Bacilio Brannon MD 09/05/24 11:58:
# mild Hypokalemia
replete and follow
Original Note:
Today's Communication/Plan
-
PT/OT
Assessment / Plan
Assessment / Plan
74yo M with PMhx of metastatic melanoma, COPD, neuropathy followed by [facility], recent admission with ADALI and ileus came with significant b/l LE pains to the point that he was not able to ambulate at home. Also found significant constipation. Improving
on oral Dilaudid and laxatives
A/P:
#Acute on chronic pain 2/2 metastatic CA
pain mgmt
PT/OT
#RLE swelling
2/2 Large tubular shaped complex fluid collection in the posterior soft tissues of the right calf
chronic
no DVT
possible ruptured backers cyst
#Anemia 2/2 CA
monitor
#Headaches
acute on chronic
CT head
#Chronic back pain 2/2 chronic L1 compression Fx and multilevel DJD
was scheduled for MRI back with [facility] - discussed with [facility] - [phone], MRI spine done
Tylenol, PT/OT
Possible outpatient spinal specialist
#Opioid induced constipation
had BM next day after admission
Laxatives
#Neuropathy
cont home meds
#Iatrogenic adrenal insufficiency
No signs of adrenal crisis
cont home dose steroids
#Essential HTN
#Chronic HFmrEF
stop Norvasc
cont carvedilol
cont Furosemide
#Hypothyroidism
TSH 16.8 - increase Synthroid and repeat TSH in 2-4 weeks with PCP
#COPD, not in exacerbation
cont bronchodilators
#mild hyponatremia
follow BMP
DVT ppx Lovenox
Full code
I have spent at least 59min reviewing chart, test results, communication with consultants and direct patient care
Anticipated Discharge: Within 24 hours
Subjective/Interval History
-
Date of Service: September 05, 2024
Objective Data
-
Labs:
Laboratory Results
09/05/24
06:36
WBC 6.3
Hgb 10.3 L
Hct 28.9 L
Plt Count 357
Sodium 131 L
Potassium 3.0 L
Chloride 96 L
Carbon Dioxide 28
BUN 15
Creatinine 0.9
Glucose 102 H
Calcium 8.0 L
Vital Signs:
Vital Signs
Temp Pulse Resp BP Pulse Ox
97.3 F 82 16 117/82 94
09/05/24 07:00 09/05/24 07:58 09/05/24 07:16 09/05/24 07:58 09/05/24 10:55
I&O
09/04/24 09/05/24 09/06/24
06:59 06:59 06:59
Intake Total 980 / 980
Output Total 450 / 450 1025 / 1025
Balance 530 / 530 -1025 / -1025
Review of Systems
-
History Source: Patient
All other systems: Reviewed and negative
Physical Exam
-
General: No Apparent Distress
HEENT: Normocephalic
Cardiac: Regular Rhythm
GI: Soft, Nontender and Nondistended
Musculoskeletal: No Clubbing and Edema, Right Lower Extrem
Neuro: Awake, Alert, Oriented and AO x 3
--- NOTE | 2024-09-05 13:03 | CON.ORTHO ---
Consultation
-
Date/Time Consultation Requested: Sep 23
Date/Time Consultation Performed: Sep 23
Requesting Provider: Clovis
Performing Provider: Norman Daily
Reason for Consultation: Right lower leg pain/swelling
Consultation - Orthopedics
History
History of Present Illness
Requested in consultation by Dr. Brannon to this very pleasant 74 y/o male with Hx of metastatic melanoma with recurrence, currently on immunotherapy with Opdualag , last dose 08/11/2024 seen at ER; evaluation for generalized weakness and
widespread pain. Was discharged from for similar complaints 5 days ago. Lives at home alone, unable to get himself up and moving throughout his home. continued pain and swelling of his RLE. Has been admitted to medicine for ongoing work-up.
Doppler US of the RLE negative for DVT but fluid collection noted in the calf with differentials of ruptured cyst vs. hematoma vs. abscess. Was requested in consult with regards to this ongoing RLE pain and swelling. Currently Afeb. Knee xrays
requested. Reports he's able to ambulate on his walker
Past Medical History
metastatic melanoma on immunotherapy
COPD
severe mitral regurgitation
hypothyroidism
adrenal insufficiency
severe peripheral neuropathy
chronic headaches/migraines
chronic/functional diarrhea
Past Surgical History: Reports Other
Additional Past Surgical History:
melanoma excision
hernia repair x2
Surgical History
Hernia repair
Social History
Tobacco: Former Smoker (wuit 1 year ago, >50 pack year history)
Alcohol: Former (quit 1 year ago)
Drug: Former User
Personal: Single
Living: Alone
Employment: Not Employed
Family History
Family History: Not pertinent
ROS
12 negative except those mentioned in the HPI
Allergies / Home Medications
Allergy/AdvReac Type Severity Reaction Status Date / Time
No Known Allergies Allergy Verified 09/03/24 10:50
�Medication �Instructions �Recorded
hydrocortisone 10 mg tablet 10 mg PO DAILY@1400 11/20/23
Anti-Inflammatory
hydrocortisone 10 mg tablet 20 mg PO DAILY Anti-Inflammatory 11/20/23
pantoprazole 40 mg tablet,delayed 40 mg PO DAILY Gastrointestinal 11/20/23
release (Protonix) Issue
umeclidinium 62.5 mcg-vilanterol 1 inh inhalation R DAILY 11/20/23
25 mcg/actuation powdr for Lung/Breathing Issues
inhalation (Anoro Ellipta)
thiamine HCl (vitamin B1) 100 mg 100 mg PO DAILY Supplement 03/04/24
tablet
acetaminophen 500 mg tablet 1,000 mg PO Q6HPRN PRN headache 03/08/24
(Tylenol Extra Strength)
cholecalciferol (vitamin D3) 25 25 mcg PO DAILY Supplement 03/08/24
mcg (1,000 unit) tablet (Vitamin
D3)
fluticasone furoate 100 1 inh inhalation R QPM 03/08/24
mcg/actuation blister powder for Lung/Breathing Issues
inhalation (Arnuity Ellipta)
zinc sulfate 50 mg zinc (220 mg) 50 mg PO DAILY Supplement 03/08/24
tablet
furosemide 40 mg tablet (Lasix) 40 mg PO DAILY #30 tabs 03/10/24
albuterol sulfate 90 mcg/actuation 2 puff inhalation R Q4HPRN PRN sob 08/10/24
aerosol inhaler
amitriptyline 10 mg tablet 20 mg PO HS Mental Health/Anxiety 08/10/24
amlodipine 2.5 mg tablet 2.5 mg PO HS Blood Pressure 08/10/24
atorvastatin 40 mg tablet 40 mg PO DAILY High Cholesterol 08/10/24
cyanocobalamin (vitamin B-12) 1,000 mcg PO DAILY Supplement 08/10/24
1,000 mcg tablet
potassium 99 mg tablet 99 mg PO DAILY Electrolyte 08/10/24
Repletion
levothyroxine 137 mcg tablet 137 mcg PO DAILY Thyroid 08/13/24
carvedilol 3.125 mg tablet (Coreg) 3.125 mg PO BID Blood Pressure 08/17/24
famotidine 20 mg tablet 20 mg PO BID 30 days #60 tabs 08/28/24
gabapentin 300 mg capsule 600 mg (2 x 300 mg) PO BID Pain 08/28/24
#120 caps
oxycodone 5 mg tablet 5 mg PO Q8HPRN PRN moderate pain 08/28/24
#14 tabs
polyvinyl alcohol-povidone (PF) 1 drops BOTH EYES QID Autoimmune 08/28/24
1.4 %-0.6 % eye drops in a disorder 7 days #1 ea
dropperette (Refresh Classic (PF))
magnesium oxide 500 mg PO DAILY Supplement 09/03/24
prochlorperazine maleate 5 mg 5 mg PO TIDPRN PRN headache 09/03/24
tablet
simethicone 80 mg chewable tablet 80 mg PO TIDPRN PRN gas 09/03/24
Vital Signs / Lab Results
Temp Pulse Resp BP Pulse Ox
97.3 F 82 16 117/82 94
09/05/24 07:00 09/05/24 07:58 09/05/24 07:16 09/05/24 07:58 09/05/24 10:55
09/05/24 06:36
09/05/24 06:36
Assessment / Plan
PE: Afeb. Right lower leg with obvious swelling and palpable collection in the proximal calf when compared to the left. Compartments are supple with zero evidence of compartment syndrome. Skin intact. No erythema. No increased warmth noted. There is
some discomfort to palpation here of the proximal calf. Right knee is nontender. No effusion. No joint line pain to palpation. Full knee ROM. Right ankle nontender. Full ankle/foot ROM. Some slight calf pain with resisted dorsiflexion of the ankle.
Palpable pulses distally. DNVI RLE
Diagnostics: Doppler US negative for DVT. Fluid collection noted ? cyst vs. hematoma vs. abscess
Right knee xrays with extremely well preserved joint spaces. Some soft tissue swelling noted posteriorly
Impression: Right calf collection, probably ruptured bonds's cyst vs. hematoma. Low concern for abscess
Plan: After listening to him subjectively and evaluating him clinically, coupled with review of diagnostics, lab studies, and vitals, I have a very low concern for an abscess of the right calf. More likely scenario would be a ruptured Bonds's cyst
vs. Hematoma. However given his history of metastatic melanoma I will request an MRI of the RLE for a more definitive diagnosis. I suspect treatment will be supportive, with elevation and cold compresses. Pain medicine as needed. Doubt IR
intervention will be necessary as this should resorb with time. If by chance this collection is highly concerning for abscess (doubtful) surgical I&D would be necessary. PT/OT if deemed appropriate. CM for assistance with dispo is appreciated. Will
follow up on MRI results when available for further/similar recommendations.
[2024-09-05] MEDS: CORTEF 10 MG PO (14:10)
[2024-09-05 15:00] VITALS: BP 107/61
--- NOTE | 2024-09-05 15:49 | CM ---
CM met with pt bedside
SNF recs by therapy
Pt declining noting he plans to dc [place] with his sister and friends providing support
He was approved for 5 hours 5 days weekly through waiver but care hasn't started yet
Call from pt's friend/Jennifer
She has concerns about his dc to home
She noted she is not able to care for him
She noted pt's sister also will not care for him
She is requesting LT SNF placement
Bedside meeting with pt again to review Jennifer's concerns
He continues to want to go home but is in agreement with backup SNF referrals
PASRR completed and referrals sent
Will need [employer] auth
Discharge Disposition- TBD
[2024-09-05] MEDS: LOVENOX 40 MG SC (18:40)
[2024-09-05] MEDS: SENOKOT-S 1 TABLET PO (21:31)
[2024-09-05] MEDS: ELAVIL 20 MG PO (21:31)
[2024-09-05 23:04] VITALS: BP 108/64
[2024-09-06] MEDS: SYNTHROID 150 MCG PO (05:50)
[2024-09-06 05:55] VITALS: BMI 22.9
--- NOTE | 2024-09-06 07:48 | W.PN.UPDATE ---
Update Note
Progress Note Update
Mr. Chance is resting comfortably in bed this morning. He reports his pain is well controlled at present. He endorses increased pain when walking, and with plantar/dorsiflexion of the ankle.
Directed exam of the right lower extremity reveals generalized edema compared to contralateral side. Tenderness to palpation about the posterior/medial aspect of the calf. Patient able to plantar and dorsiflex ankle with mild discomfort.
Neurovascularly intact distally.
MRI Left Lower Extremity 09/05/2024 IMPRESSION:
Large complex collection of the right calf interposed between the gastrocnemius and soleus muscles. Imaging characteristics would favor a hematoma. Follow-up imaging can be performed as clinically indicated.
Shreyas's MRI was reviewed with him today which reveals a large collection in his right calf. Imaging, and clinical picture, favor a hematoma. MRI could be repeated with contrast if medicine/oncology is concerned for metastatic process, but I do not
feel this is warranted at this time. This can be treated with supportive measures moving forward. We discussed that this should spontaneously resolve with time. He may continue weight bearing as tolerated, and may utilize an assistive device as
needed. I recommended gentle stretching of his right calf, and calf pumps at his ankles. He may alternate heat and ice about the area for symptom management. Pain control prn.
Orthopedics will sign off for now. We are happy to see him on an outpatient basis for continued management moving forward.
--- NOTE | 2024-09-06 08:03 | W.PN.HOSP.TC ---
Today's Communication/Plan
-
dc
Assessment / Plan
Assessment / Plan
74yo M with PMhx of metastatic melanoma, COPD, neuropathy followed by [facility], recent admission with ADALI and ileus came with significant b/l LE pains to the point that he was not able to ambulate at home. Also found significant constipation. Improving
on oral Dilaudid and laxatives, had BM on the day of D/C. Counselled to avoid diarrhea - if >2 BM a day - he will have to hold laxatives. he verbalized understanding. R popleteal complex hematoma confirmed on MRI - outpatient ortho f/u. Medically
stable for d/c to continue mgmt with [facility]. MRI spine done - no cord compression and no metastasis. Synthroid increased - follow up with PCP to repeat TFT in 2-3 weeks
A/P:
#Acute on chronic pain 2/2 metastatic CA
pain mgmt
PT/OT
#RLE swelling 2/2 Large tubular shaped complex hematoma
chronic
no DVT
Ortho followed - outpatient follow up
#Anemia 2/2 CA
monitor
#Headaches
acute on chronic
CT head neg for acute findings
#Chronic back pain 2/2 chronic L1 compression Fx and multilevel DJD
was scheduled for MRI back with [facility] - discussed with [facility] - [phone], MRI spine done - no cord compression and no metastasis
Tylenol, PT/OT
#Opioid induced constipation
had BM next day after admission
Laxatives
#Neuropathy
cont home meds
#Iatrogenic adrenal insufficiency
No signs of adrenal crisis
cont home dose steroids
#Essential HTN
#Chronic HFmrEF
stop Norvasc
cont carvedilol
cont Furosemide
#Hypothyroidism
TSH 16.8 - increase Synthroid and repeat TSH in 2-4 weeks with PCP
#COPD, not in exacerbation
cont bronchodilators
#mild hyponatremia
follow BMP
DVT ppx Lovenox
Full code
I have spent at least 39min reviewing chart, test results, communication with consultants and direct patient care
Anticipated Discharge: Today
Subjective/Interval History
-
Date of Service: September 06, 2024
Objective Data
-
Vital Signs:
Vital Signs
Temp Pulse Resp BP Pulse Ox
97.7 F 75 16 108/64 98
09/05/24 23:04 09/05/24 23:04 09/05/24 23:04 09/05/24 23:04 09/06/24 00:32
I&O
09/05/24 09/06/24 09/07/24
06:59 06:59 06:59
Output Total 1025 / 1025 775 / 775
Balance -1025 / -1025 -775 / -775
Review of Systems
-
History Source: Patient
All other systems: Reviewed and negative
Physical Exam
-
General: No Apparent Distress
HEENT: Normocephalic
Respiratory: Clear to Auscultation
Cardiac: Regular Rhythm
GI: Soft, Nontender and Nondistended
Neuro: Awake, Alert, Oriented and AO x 3
Psych: Calm
--- NOTE | 2024-09-06 08:19 | W.DCSUMMARY ---
Discharge Summary
Discharge Data
Date of Admission: 09/03/24
Date of Discharge: 09/06/24
-
Pending Results: No
Hospital Course
74yo M with PMhx of metastatic melanoma, COPD, neuropathy followed by [facility], recent admission with ADALI and ileus came with significant b/l LE pains to the point that he was not able to ambulate at home. Also found significant constipation. Improving
on oral Dilaudid and laxatives, had BM on the day of D/C. Counselled to avoid diarrhea - if >2 BM a day - he will have to hold laxatives. he verbalized understanding. R calfcomplex hematoma confirmed on MRI - outpatient ortho f/u. Medically stable
for d/c to continue mgmt with [facility]. MRI spine done - no cord compression and no metastasis. Synthroid increased - follow up with PCP to repeat TFT in 2-3 weeks. Patient was offered rehab, but declined, he stating that he can function at home with
home PT. Was able to ambulate to the bathroom and in the room while in the hospital
I have spent at least 39min reviewing chart, test results, communication with consultants and direct patient care
Patient was managed for:
#Acute on chronic pain 2/2 metastatic CA
#RLE swelling 2/2 Large tubular shaped complex hematoma
#Anemia 2/2 CA
#Headaches
#Chronic back pain 2/2 chronic L1 compression Fx and multilevel DJD
#Opioid induced constipation
#Neuropathy
#Iatrogenic adrenal insufficiency
#Essential HTN
#Chronic HFmrEF
#Hypothyroidism
#COPD, not in exacerbation
#mild hyponatremia
Discharge Plan
-
Patient Disposition: Home with Home Care
Discharge Diagnosis/Procedures: LE pain
Diet: Regular
Activity: As tolerated
Driving Restrictions: As prior to admission
Other Services: PT
Activity Restrictions/Additional Instructions:
Please work with [facility] for refills of your new pain medication
Follow with your PCP in 2-3 weeks for thyroid test since Synthroid increased, also repeat serum sodium
Referrals:
Jayesh Ma PA [Family Provider] - in two to three weeks (Repeat TSH, serum sodium blood test)
Tunde Daily MD [Active] - in two to four weeks (R popliteal hematoma)
Prescriptions:
New
hydromorphone 2 mg Tablet
2 mg PO Q4HPRN PRN (Reason: moderate-severe pain) Qty: 18 0RF
polyethylene glycol 3350 17 gram Powder In Packet
17 g PO DAILY Qty: 30 0RF
Rx Instructions:
stop if 2 or more bowel movement per day
levothyroxine 150 mcg Tablet
150 mcg PO DAILY@0600 Qty: 60 0RF
gabapentin 300 mg Capsule
600 mg PO BID Qty: 60 0RF
sennosides-docusate sodium 8.6-50 mg Tablet
1 tab PO BID Qty: 60 0RF
Continued
pantoprazole [Protonix] 40 mg Tablet,Delayed Release (Dr/Ec)
40 mg PO DAILY
hydrocortisone 10 mg Tablet
20 mg PO DAILY
hydrocortisone 10 mg Tablet
10 mg PO DAILY@1400
Anoro Ellipta 62.5-25 mcg/actuation Blister With Device
1 inh INHALATION R DAILY
thiamine HCl (vitamin B1) 100 mg Tablet
100 mg PO DAILY
acetaminophen [Tylenol Extra Strength] 500 mg Tablet
1,000 mg PO Q6HPRN PRN (Reason: headache)
cholecalciferol (vitamin D3) [Vitamin D3] 25 mcg (1,000 unit) Tablet
25 mcg PO DAILY
Arnuity Ellipta 100 mcg/actuation Blister With Device
1 inh INHALATION R QPM
furosemide [Lasix] 40 mg tablet
40 mg PO DAILY Qty: 30 0RF
atorvastatin 40 mg Tablet
40 mg PO DAILY
cyanocobalamin (vitamin B-12) 1,000 mcg Tablet
1,000 mcg PO DAILY
potassium 99 mg Tablet
99 mg PO DAILY
amitriptyline 10 mg Tablet
20 mg PO HS
albuterol sulfate 90 mcg/actuation Hfa Aerosol Inhaler
2 puff INHALATION R Q4HPRN PRN (Reason: sob)
carvedilol [Coreg] 3.125 mg Tablet
3.125 mg PO BID
famotidine 20 mg Tablet
20 mg PO BID 30 Days Qty: 60 0RF
Refresh Classic (PF) 1.4-0.6 % Dropperette
1 drops BOTH EYES QID 7 Days Qty: 1 0RF
prochlorperazine maleate 5 mg Tablet
5 mg PO TIDPRN PRN (Reason: headache)
magnesium oxide 500 mg magnesium Tablet
500 mg PO DAILY
Discontinued
zinc sulfate 50 mg zinc (220 mg) Tablet
50 mg PO DAILY
amlodipine 2.5 mg Tablet
2.5 mg PO HS
levothyroxine 137 mcg Tablet
137 mcg PO DAILY
oxycodone 5 mg Tablet
5 mg PO Q8HPRN PRN (Reason: moderate pain) Qty: 14 0RF
gabapentin 300 mg Capsule
600 mg PO BID Qty: 120 0RF
simethicone 80 mg tablet,chewable
80 mg PO TIDPRN PRN (Reason: gas)
Discharge Orders:
Discharge Patient (As Directed); Ordered 09/06/24
Ordered By: Bacilio Brannon
Discharge Date and Time
Print Language: MONGOLIAN
[2024-09-06 08:38] VITALS: BP 110/66
[2024-09-06] MEDS: COREG 3.125 MG PO (08:42)
[2024-09-06] MEDS: KCL 40 MEQ PO (08:42)
[2024-09-06] MEDS: LASIX 40 MG PO (08:42)
[2024-09-06] MEDS: NEURONTIN 600 MG PO (08:42)
[2024-09-06] MEDS: SENOKOT-S 1 TABLET PO (08:42)
[2024-09-06] MEDS: CORTEF 20 MG PO (08:42)
[2024-09-06] MEDS: PROTONIX 40 MG PO (08:42)
[2024-09-06] MEDS: MIRALAX 17 GRAMS PO (08:42)
[2024-09-06] MEDS: REFRESH EYE DROPS (PF) 1 DROPS BOTH EYES (08:43)
[2024-09-06] MEDS: MAGNESIUM OXIDE 500 MG PO (08:43)
[2024-09-06] MEDS: PEPCID 20 MG PO (08:43)
[2024-09-06] MEDS: DILAUDID 2 MG PO (08:51)
[2024-09-06] MEDS: SPIRIVA RESPIMAT 2.5 MCG 2 PUFF INH (08:55)
[2024-09-06] MEDS: FLOVENT 44 MCG INHALER 2 PUFF INH (08:55)
[2024-09-06] MEDS: STRIVERDI RESPIMAT 2 PUFF INH (08:55)
--- NOTE | 2024-09-06 10:10 | CM ---
clinical data manager reviewed patient's chart and patient has been cleared for discharge, patient case coordinator met with patient and patient states he plans on going home today with [facility] and patient will have Waiver services from the [facility]. Case
recreational resort manager offered patient skilled placement at [facility] or [facility] who have accepted patient but patient declined.
Plan; Home today with [facility] and patient to follow up with Waiver Services from [facility]. Patient's friend, Ysabel to transport patient to home.
== END 2024-09-06 12:22 | disposition home health service (06) | DRG 948 ==
LOC: 1 ACUTE 15:51
PROVIDERS: Emergency Medicine; Physician Assistant; ADMITTING PHYSICIAN Internal Medicine; ATTENDING PHYSICIAN Internal Medicine; CONSULT PHYSICIAN Orthopaedic Surgery; EMERGENCY PHYSICIAN Emergency Medicine; FAMILY PHYSICIAN Physician Assistant
DX: G89.3 Neoplasm related pain (acute) (chronic) (principal); I50.22 Chronic systolic (congestive) heart failure; E87.1 Hypo-osmolality and hyponatremia; F17.200 Nicotine dependence, unspecified, uncomplicated; E87.6 Hypokalemia; D63.0 Anemia in neoplastic disease; I11.0 Hypertensive heart disease with heart failure; E03.9 Hypothyroidism, unspecified; J44.9 Chronic obstructive pulmonary disease, unspecified; M79.81 Nontraumatic hematoma of soft tissue
CPT/HCPCS: 70450; 72158; 73560; 73718; 80048; 80053; 82533; 82962; 83605; 83735; 84100; 84443; 85025; 85027; 87040; 87502; 87811; 93005; 93970; 94640; 96361; 96374; 96375; 97163; 97167; 99285; A9575

== ENCOUNTER 2024-09-14 17:39 | Observation (INO) | payer OTHER, SELFPAY ==
[2024-09-14] VITALS (7 sets, daily range): BP systolic 94–127; BP diastolic 57–84; BMI 23.0; BMI 22.7
--- NOTE | 2024-09-14 10:18 | ED.GENMED ---
History of Present Illness
General
Chief Complaint: Failure to Thrive
Source: patient
Exam Limitations: none
Time Seen by Provider: 09/14/24 10:09
Nursing documentation reviewed up to this point in time: agreed with
History of Present Illness
History of Present Illness:
Patient is a 74-year-old male with history of metastatic melanoma, anemia chronic back pain adrenal deficiency hypertension COPD presents to the ER for evaluation. Patient complains of burning pain in the shoulders hands and feet legs. He reports
because he has not been feeling well he skipped his immunotherapy which was scheduled this week. He is followed by [facility]. He is on Dilaudid for pain and did take it last night. Patient was just admitted September 03 to September 06.
Patient has had physical therapy at home however canceled physical therapy for today because he feels that he cannot do it. Patient has a history of intermittent constipation diarrhea and is on laxatives because of Dilaudid as well as stool
softeners. He does adjust them but reports he had diarrhea today and several episodes yesterday. Patient reports he does not have an appetite.
Past History
Past History
ED Past Medical History: Cancer (Lung cancer), COPD, GERD and Other (Alcohol abuse/tobacco abuse)
ED Past Surgical History: Other (hernia)
Social History
Tobacco: Smoker
Alcohol: Chronic alcoholic
Drug: None
Personal:
Living: with family
Employment: Retired
Family History
Family History: Other (Noncontributory)
Review of Systems
Review of Systems
Allergies reviewed?: Yes
All Other Systems: ROS reviewed and negative except as documented in HPI and ROS
Constitutional: Reports fatigue; Denies fever
EENT: Reports no symptoms
Respiratory: Reports no symptoms; Denies trouble breathing
Cardiac: Reports no symptoms
ABD/GI: Reports no symptoms
Musculoskeletal: Reports other (Extremity bony pain)
Skin: Reports no symptoms
Neurological: Reports no symptoms
Psychiatric: Reports no symptoms
Phy Exam
General Physical Exam
General Presentation: no apparent distress
General age: appears older than age
General Skin: warm and dry
General Habitus: failure to thrive
General Mental: alert
General Hydration: dry mucous membranes
Cardiovascular Exam
Cardiovascular Exam: regular rate/rhythm and normal peripheral pulses
Pulmonary Exam
Pulmonary Exam: lungs clear and no respiratory distress
Neurological Exam
Neurological Exam: alert and oriented x3
Musculoskeletal Exam
Musculoskeletal Exam: full ROM
Skin Exam
Skin Exam: normal color and warm/dry
Psychiatric Exam
Psychiatric Exam: normal mood/affect
Course
Orders/Labs/Results
Orders:
Orders
09/14/24 10:16
Electrocardiogram (*1) Urgent
Reason for Study: Chest Pain
EKG- Treatment ONCE
09/14/24 10:56
0.9% Sodium Chloride 1000 ml [Nss] 1,000 ml IV BOLUS
09/14/24 10:57
Obstruct Series W/PA Chest [CR Obstruct Series W/pa Chest] Urgent
Comment:
Reason For Exam: pain/constipation /diarrhea
09/14/24 11:00
Comprehensive Metabolic Panel Urgent
09/14/24 11:01
Complete Blood Count/With Diff Urgent
09/14/24 Dinner
Regular
At Your Request: Limited Participation
Oral Supplement (If unsure of flavor order apple or vanilla): Ensure Enlive Chocolate
Supplement Frequency: BID
09/14/24 16:13
COVID-19 Antigen Urgent
Source: Nasal Swab
Influenza A+B Rapid Molecular Urgent
ALETHA Source: Nasal Swab
Specimen Description:
09/14/24 16:16
Admit/Transfer Patient As Directed
Co-Sign Provider:
Level of Care: Observation services
Assign to:: Medical/Surgical
Physician / Group: Romaine Jones
Diagnosis: failure to thrive
09/14/24 16:17
PRN Pain Medication Management As Directed
May give lesser potent ordered pain med per pt: Yes
preference::
Protocol:: Medication orders for pain may be administered in a
manner that supports deferring to patient preference
when the pt is:
- Requesting an ordered lesser potent pain medication.
Least to most potent pain medications are defined
as: acetaminophen < NSAID < tramadol < opioids
(morphine, oxycodone, hydromorphone).
- Requesting a lesser dose of the same medication IF
ORDERED.
- Requesting a less intrusive route of administration
if both routes are prescribed by the provider (PO <
IV).
09/14/24 16:19
Code Status As Directed
Resuscitation Status: Full Code
09/14/24 19:34
0.9% Sodium Chloride 1000 ml [Nss] 1,000 ml IV 80 mls/hr
Acetaminophen [Tylenol] 650 mg PO Q4HPRN PRN
Albuterol [ProAIR HFA INHALER] 2 puff INH R Q4HPRN PRN
Artificial Tears (Pf) [Refresh Eye Drops (Pf)] 1 drops BOTH EYES QID
HYDROmorphone [Dilaudid] 1 mg IV Q3HPRN PRN
HYDROmorphone [Dilaudid] 2 mg PO Q4HPRN PRN
09/14/24 19:34
Activity As Directed
Activity Level: As Tolerated
Vital Signs As Directed
Frequency: Per unit guidelines
Weight As Directed
Frequency: Daily
DX Deep Vein Thrombosis Video Routine
09/14/24 20:00
Carvedilol [Coreg] 3.125 mg PO BID
Docusate W/Senna [Senokot-S] 1 tablet PO BID
Famotidine [Pepcid] 20 mg PO BID
Gabapentin [Neurontin] 600 mg PO BID
fluticasone furoate [Arnuity Ellipta] 1 inh INH R QPM
09/14/24 22:00
Amitriptyline [Elavil] 20 mg PO HS
09/15/24 06:00
Levothyroxine [Synthroid] 150 mcg PO DAILY@0600
09/15/24 08:00
Atorvastatin [Lipitor] 40 mg PO DAILY
Cholecalciferol (Vitamin D3) [VITAMIN D3 (cholecalciferol)] 25 mcg PO DAILY
Cyanocobalamin [Vitamin B-12] 1,000 mcg PO DAILY
Hydrocortisone [Cortef] 20 mg PO DAILY
Lactobac/Bifidobac [Visbiome] 2 cap PO DAILY
Pantoprazole [Protonix] 40 mg PO DAILY
Polyethylene Glycol Powder [Miralax] 17 grams PO DAILY
Thiamine HCl [Vitamin B1] 100 mg PO DAILY
potassium 99 mg PO DAILY
umeclidinium-vilanterol [Anoro Ellipta] 1 inh INH R DAILY
09/15/24 08:01
Basic Metabolic Panel IN AM
Complete Blood Count/No Diff IN AM
09/15/24 14:00
Hydrocortisone [Cortef] 10 mg PO DAILY@1400
09/15/24 18:00
Enoxaparin Sodium [Lovenox] 40 mg SC QPM
Abnormal Lab Results
09/14/24 09/14/24
11:00 11:01
RBC 4.10 L 10^6/uL
(4.70-6.10)
Hgb 11.9 L g/dL
(13.0-18.0)
Hct 36.3 L %
(39.0-52.0)
MCHC 32.8 L g/dL
(33.0-37.0)
Plt Count 582 H 10^3/uL
(130-400)
Abs Immat Gran (auto) 0.3 H 10^3/uL
(0-0.05)
Absolute Monos (auto) 0.7 H 10^3/uL
(0.1-0.6)
Immature Gran % 2.8 H %
(0-0.5)
Lymphocytes % 20.0 L %
(20.5-51.1)
Sodium 130 L mmol/L
(135-145)
Chloride 91 L mmol/L
(98-107)
Calcium 8.3 L mg/dl
(8.4-10.2)
Alkaline Phosphatase 141 H U/L
(38-126)
Total Protein 5.2 L g/dl
(6.3-8.2)
Albumin 3.0 L g/dl
(3.5-5.0)
09/14/24 11:01
09/14/24 11:01
Vital Signs
Initial and Last Documented VS:
Initial Vital Signs
Temp Pulse Resp BP Pulse Ox
97.9 F 108 18 94/76 99
09/14/24 10:08 09/14/24 10:08 09/14/24 10:08 09/14/24 10:08 09/14/24 10:08
Last Documented Vital Signs
Temp Pulse Resp BP Pulse Ox
98.6 F 89 18 107/63 96
09/15/24 07:00 09/15/24 07:00 09/15/24 07:00 09/15/24 07:00 09/15/24 07:00
MDM/Problems Addressed
Differential Diagnosis Includes:
Not limited to chronic pain related to cancer, dehydration failure to thrive elective abdomen
MDM/Problems Addressed:
Patient with metastatic melanoma presents for generalized pain does not feel that he can live by himself. Patient does have a history of mild hyponatremia is mildly hyponatremic here complains of generalized pain related to cancer. Patient mid to
the hospital service for failure to thrive
*Pulse Oximetry
Patient hypoxic: no
*Critical Care Note
Total Time (30-74mins, 75-104mins- exclusive of procedures): Not Applicable
ED Attending Note
-
Portions of this chart may have been created with voice recognition software.� Occasional wrong word or��sound alike� substitutions may have occurred due to the inherent limitations of voice recognition software.
Discharge Plan
Departure
Patient Disposition: Admit
Date of Disposition: 09/14/24
Time of Disposition: 15:06
Admit to doctor: hospitalist
Presentation/result/management discussed w/ accepting MD/DO: Hospitalist
Patient with high blood pressure during this ER visit?: No
Condition: Fair
Covid-19: Not Applicable
Discharge Problem:
Adult failure to thrive
Interventions
Interventions:
*Risk Screen - Suicide Last Done: 09/14/24 22:06
*General Assessment Last Done: 09/14/24 10:08
*Neglect/Abuse Screening Last Done: 09/14/24 10:08
ED- Fall Risk Assessment Last Done: 09/14/24 16:32
*ED COVID-19 Vaccine History Last Done: 09/14/24 10:08
*Nursing Disposition Last Done: 09/14/24 21:57
Discharge Date and Time
Discharge Date/Time: 09/14/24 21:58
[2024-09-14] MEDS: NSS 1000 IV ×2 (11:07→20:42)
[2024-09-14 11:19] LABS: % Basophils 0.6 % (0-2); % Eosinophils 4.4 % (0-6); % Immature Granulocytes 2.8 % (0-0.5); % Monocytes 7.4 % (1.7-9.3); % Neutrophils 64.8 % (42.2-75.2); Absolute Basophils 0.1 10^3/uL (0-0.2); Absolute Eosinophils 0.4 10^3/uL (0-0.7); Absolute Immature Granulocytes 0.3 10^3/uL (0-0.05); Absolute Lymphocytes 1.8 10^3/uL (1.2-3.4); Absolute Monocytes 0.7 10^3/uL (0.1-0.6); Absolute Neutrophils 5.7 10^3/uL (1.4-6.5); Hematocrit 36.3 % (39.0-52.0); Hemoglobin 11.9 g/dL (13.0-18.0); Mean Corp Hgb Conc. 32.8 g/dL (33.0-37.0); Mean Corpuscular Volume 88.5 fL (80.0-94.0); Mean Platelet Volume 8.7 fL (7.4-10.4); Nucleated Red Blood Cells % 0 % (-); Platelet Count 582 10^3/uL (130-400); Red Cell Dist. Width 14.3 % (11.5-14.5); White Blood Cell Count 8.8 10^3/uL (4.8-10.8)
[2024-09-14 13:17] LABS: Blood Urea Nitrogen 12 mg/dl (9-20); Estimated Creatinine Clearance 72 ml/min; Glucose 89 mg/dl (70-99); Potassium 3.8 mmol/L (3.5-5.1); Sodium 130 mmol/L (135-145); eGFR > 60.00
[2024-09-14 13:18] LABS: ALT (SGPT) 12 U/L (0-50); AST (SGOT) 30 U/L (17-59); Alkaline Phosphatase 141 U/L (38-126); Calcium 8.3 mg/dl (8.4-10.2); Carbon Dioxide 29 mmol/L (22-30); Chloride 91 mmol/L (98-107); Total Bilirubin 0.8 mg/dl (0.2-1.3); Total Protein 5.2 g/dl (6.3-8.2)
--- NOTE | 2024-09-14 14:40 | CM ---
Cm spoke with patient's friend Chandni. Chandni stated that patient lives alone. Patient has been approved for home care for 5 days /week for 5 hours through waiver program. Patient also is known to [facility] and [facility].
CM met with patient in room. CM attempted to ascertain patient's preferences for discharge. Christineen could not confirm if home care had been arranged and forgot if he has [facility]. Patient was receiving phone call from [facility] pillowcase sewer for home care
services. Patient stated that he's been too fatigued and confused to follow through on phone calls and care.
Patient is now asking to stay in the hospital or be transferred to [place].
--- NOTE | 2024-09-14 15:28 | HPS.HSE ---
Addendum entered and electronically signed by Romaine Jones MD 09/14/24 16:34:
I saw and examined the patient.
The VISITOR SERVICE ASSISTANT's note was reviewed and I agree with the note.
Comment:
74yo M with PMhx of metastatic melanoma, COPD, neuropathy followed by [facility], chronic pain secondary to malignancy, anemia, opioid-induced constipation, iatrogenic adrenal insufficiency, primary hypertension, hypothyroidism, presenting from home with
weakness. Patient also complaining of loose bowel movements. Patient took pain medication overnight. Patient was not able to tolerate any physical therapy. Upon further questioning to patient he states of difficulty with paying rent and states
he is depleted majority of his financial resources. Patient states of multiple social issues at home and would like to talk to social worker clinical. Also states of chronic vision difficulty due to immunotherapy and states he canceled his immunotherapy
which was supposed to be yesterday.
GENERAL: chronically ill appearing,
HEENT: NC/AT
HEART: regular rate and rhythm, +S1, +S2
LUNGS : clear to auscultation bilaterally
ABDOM: soft, nontender, nondistended, + bowel sounds
EXT: no cyanosis, clubbing, or edema
NEUROLOGIC: grossly intact , conversant
Impression
Weakness likely multifactorial secondary to malignancy versus deconditioning versus dehydration
Start patient on gentle IV fluid
PT and OT
May require placement
Check influenza and COVID-19
Mild acute on chronic hyponatremia
Gentle additional 1 L of normal saline
Trend BMP
Loose bowel movements likely overflow diarrhea
Abdominal x-ray negative for obstruction. Possible mild enteritis.
Monitor for diet tolerance. Low residue diet. Start probiotics.
Chronic pain secondary to malignancy
Right lower extremity pain due to hematoma
Pain control
Orthopedic evaluated recently with outpatient management
Continue with physical and Occupational Therapy
Metastatic melanoma on immunotherapy/severe peripheral neuropathy
Being managed at [facility]
Continue with home regimen of steroids
Chronic medical problems
COPD-- continue albuterol HFA PRN, and Ellipta
HFmrEF--severe mitral regurgitation- hold furosemide - continue carvedilol - monitor daily weights and I&O's
hypothyroidism- continue levothyroxine
chronic headaches/migraines - continue amitriptyline-if persist can go for Neuro opinion
adrenal insufficiency
chronic/functional diarrhea
Code status: Full Code
DVT Prophylaxis: Lovenox Sq
I spent a total of 80 minutes with the patient or on the floor. More than 50% of this time involved counseling and coordination of care.
Original Note:
Family Physician
-
Family Physician: MAY Ortiz
Chief Complaint
-
failure to thrive, pain
History of Present Illness
Patient is a 74-year-old male with past medical history significant for metastatic melanoma, hypothyroidism, HFpEF, and COPD who presented to [facility] for evaluation of pain and failure to thrive. Patient reports complains of burning pain in
knees to toes and bilateral hands. He states he has been feeling worn down and canceled this weeks immunotherapy and transition of care specialist appointment. He also complaints of itching to left upper arm and antecubital area. Patient reports having no appetite
recently and a loss of approximately 19 pounds in last 2 weeks. He also states he has had some diarrhea recently. Denies any fever, chills, shortness of breath, chest pain, cough, or urniary symptoms.
Medical History
Past Medical History
Past Medical History: Reports Other
Additional Past Medical History:
metastatic melanoma
hypothyroidism
HFpEF
hyperlipidemia
COPD
anxiety
Past Surgical History: Reports Other
Additional Past Surgical History:
hernia repair x2
left axillary lymph node dissection
cystoscopy with bladder biopsy
melanoma resection on back
colonoscopy
sigmoidoscopy
cataract extraction
Social History
Tobacco: Former Smoker
Alcohol: None
Drug: None
Living: Alone
Employment: Retired
Family History
Family History: Not pertinent
Allergies / Home Medications
Allergies reflects when Allergies were last updated in [email or web address].
Home Medications with original date entered in [email or web address]
Allergy/Medication List:
Allergies
Allergy/AdvReac Type Severity Reaction Status Date / Time
No Known Allergies Allergy Verified 09/03/24 10:50
Home Medications
hydrocortisone 10 mg tablet 10 mg PO DAILY@1400 Anti-Inflammatory 11/20/23
hydrocortisone 10 mg tablet 20 mg PO DAILY Anti-Inflammatory 11/20/23
pantoprazole 40 mg tablet,delayed release (Protonix) 40 mg PO DAILY Gastrointestinal Issue 11/20/23
umeclidinium 62.5 mcg-vilanterol 25 mcg/actuation powdr for inhalation (Anoro Ellipta) 1 inh inhalation R DAILY Lung/Breathing Issues 11/20/23
thiamine HCl (vitamin B1) 100 mg tablet 100 mg PO DAILY Supplement 03/04/24
acetaminophen 500 mg tablet (Tylenol Extra Strength) 1,000 mg PO Q6HPRN PRN headache 03/08/24
cholecalciferol (vitamin D3) 25 mcg (1,000 unit) tablet (Vitamin D3) 25 mcg PO DAILY Supplement 03/08/24
fluticasone furoate 100 mcg/actuation blister powder for inhalation (Arnuity Ellipta) 1 inh inhalation R QPM Lung/Breathing Issues 03/08/24
furosemide 40 mg tablet (Lasix) 40 mg PO DAILY #30 tabs 03/10/24
albuterol sulfate 90 mcg/actuation aerosol inhaler 2 puff inhalation R Q4HPRN PRN sob 08/10/24
amitriptyline 10 mg tablet 20 mg PO HS Mental Health/Anxiety 08/10/24
atorvastatin 40 mg tablet 40 mg PO DAILY High Cholesterol 08/10/24
cyanocobalamin (vitamin B-12) 1,000 mcg tablet 1,000 mcg PO DAILY Supplement 08/10/24
potassium 99 mg tablet 99 mg PO DAILY Electrolyte Repletion 08/10/24
carvedilol 3.125 mg tablet (Coreg) 3.125 mg PO BID Blood Pressure 08/17/24
famotidine 20 mg tablet 20 mg PO BID 30 days #60 tabs 08/28/24
polyvinyl alcohol-povidone (PF) 1.4 %-0.6 % eye drops in a dropperette (Refresh Classic (PF)) 1 drops BOTH EYES QID Autoimmune disorder 7 days #1 ea 08/28/24
magnesium oxide 500 mg PO DAILY Supplement 09/03/24
prochlorperazine maleate 5 mg tablet 5 mg PO TIDPRN PRN headache 09/03/24
gabapentin 300 mg capsule 600 mg (2 x 300 mg) PO BID #60 caps 09/06/24
hydromorphone 2 mg tablet 2 mg PO Q4HPRN PRN moderate-severe pain #18 tabs 09/06/24
levothyroxine 150 mcg tablet 150 mcg PO DAILY@0600 #60 tabs 09/06/24
polyethylene glycol 3350 17 gram oral powder packet 17 g PO DAILY #30 ea 09/06/24
sennosides 8.6 mg-docusate sodium 50 mg tablet 1 tab PO BID #60 tabs 09/06/24
Review of Systems
-
History Source: Patient
Constitutional: Reports Weight Loss and Fatigue
EENT: Reports Other (eye soreness )
Respiratory: Reports No Symptoms
Cardiac: Reports No Symptoms
Abdomen/GI: Reports Abdominal Pain and Diarrhea
: Reports No Symptoms
Musculoskeletal: Reports Other (burning pain bilateral hands and bilateral knees to toes)
Skin: Reports Rash (left upper arm )
Neurological: Reports Weakness
Endocrine: Reports No Symptoms
Hematologic/Lymphatic: Reports No Symptoms
Psych: Reports No Symptoms
Physical Exam
Vital Signs
Vital Signs
Temp Pulse Resp BP Pulse Ox
97.9 F 95 20 106/69 95
09/14/24 10:08 09/14/24 11:15 09/14/24 11:15 09/14/24 11:00 09/14/24 11:15
Physical Exam
General: Well Developed, Well Nourished, No Apparent Distress and Pain
HEENT: NormoCephalic, Moist mucous membranes, Atraumatic, Nose Appears Normal and Ears Appear Normal
Respiratory: Clear, Non Labored Respirations and Decreased Breath Sounds
Cardiac: S1/S2; No Murmur, Rub or Gallop
Breast: Deferred by me
GI: Soft, Non Tender, Non Distended and Normal Bowel Sounds; No Organomegaly
Rectal: Deferred by Provider
Genito-urinary: Deferred by me
Musculoskeletal: No Clubbing, No Cyanosis and No Edema
Skin: Warm and IV/Catheter Site; No Rash
Neuro: Awake, Alert, AO x 3 and Nonfocal/grossly intact
Psych: Calm
Laboratory Results
-
09/14/24 11:01
09/14/24 11:01
Laboratory Results
Total Bilirubin Cancelled 09/14/24 11:01
AST Cancelled 09/14/24 11:01
ALT Cancelled 09/14/24 11:01
Alkaline Phosphatase Cancelled 09/14/24 11:01
Data Reviewed
-
Diagnostic Radiology: Report Reviewed by me (CXR: Findings as above most likely representing ileus or enteritis. Early small bowel obstruction cannot be definitively excluded, considered less likely. No acute pulmonary process. )
Medical Tests (Nuc Med, Echo, EKG etc): Report Reviewed by me (EKG: SINUS TACHYCARDIA POSSIBLE INFERIOR INFARCT (CITED ON OR BEFORE 17-AUG-2024))
Lab Data: Labs Reviewed by me
Impression/Plan
-
IMPRESSION/PLAN:
#failure to thrive
Covid and Influenza: pending
- Admit to med/surg for observation
- IVF
- pain regimen
- Consult PT/OT
#metastatic melanoma
follows at [place]
canceled immunotherapy scheduled this week r/t not feeling well
- continue to follow up with Carlos Mast
#hypothyroidism
- continue levothyroxine
#HFpEF
ECHO (04/07/2024): Normal left ventricular size, wall thickness and systolic function.
LV ejection fraction is 60% by Caceres's biplane method of discs.
Stage I diastolic dysfunction suggestive of abnormal relaxation.
Indexed LA volume is within normal range (15-34 mL/m2).
Thickened mitral valve leaflets.
Severe eccentric mitral regurgitation.
Thickened and focally calcified trileaflet aortic valve with normal leaflet
excursion.
No tricuspid regurgitation is seen.
Normal pericardium without effusion.
- continue carvedilol, and furosemide
- daily weights
#hyperlipidemia
- continue atorvastatin
#COPD
- continue albuterol and Ellipta
#anxiety
- continue amitriptyline
Code status: Full Code
DVT Prophylaxis: Lovenox Sq
[2024-09-14 16:39] LABS: COVID-19 Antigen Negative (Negative)
[2024-09-14] MEDS: PEPCID 20 MG PO (20:43)
[2024-09-14] MEDS: REFRESH EYE DROPS (PF) 1 DROPS BOTH EYES (20:43)
[2024-09-14] MEDS: COREG 3.125 MG PO (20:46)
[2024-09-14] MEDS: NEURONTIN 600 MG PO (20:47)
[2024-09-14] MEDS: STRIVERDI RESPIMAT 2 PUFF INH (21:22)
[2024-09-14] MEDS: SPIRIVA RESPIMAT 2.5 MCG 2 PUFF INH (21:22)
[2024-09-14] MEDS: SENOKOT-S PO (22:20)
[2024-09-14] MEDS: ELAVIL 20 MG PO (22:23)
[2024-09-14] MEDS: DILAUDID 1 MG IV (22:23)
[2024-09-14] MEDS: REFRESH EYE DROPS (PF) BOTH EYES (22:30)
[2024-09-15] MEDS: SYNTHROID 150 MCG PO (05:06)
[2024-09-15 06:00] VITALS: BMI 22.7
[2024-09-15 07:00] VITALS: BP 107/63
--- NOTE | 2024-09-15 08:15 | VNURNOTE ---
Chart reviewed. Patient is current with [facility] nursing, PT, OT. Will continue to follow hospital course and DC plans.
[2024-09-15] MEDS: CORTEF 20 MG PO (08:37)
[2024-09-15] MEDS: VISBIOME 2 CAP PO (08:38)
[2024-09-15] MEDS: PROTONIX 40 MG PO (08:38)
[2024-09-15] MEDS: VITAMIN B1 100 MG PO (08:39)
[2024-09-15] MEDS: VITAMIN D3 (cholecalciferol) 25 MCG PO (08:40)
[2024-09-15] MEDS: SENOKOT-S 1 TABLET PO ×2 (08:40→21:44)
[2024-09-15] MEDS: COREG 3.125 MG PO ×2 (08:41→21:45)
[2024-09-15] MEDS: PEPCID 20 MG PO ×2 (08:42→21:44)
[2024-09-15] MEDS: VITAMIN B-12 1000 MCG PO (08:43)
[2024-09-15] MEDS: LIPITOR 40 MG PO (08:43)
[2024-09-15] MEDS: NEURONTIN 600 MG PO ×2 (08:43→21:43)
[2024-09-15] MEDS: MIRALAX 17 GRAMS PO (08:44)
[2024-09-15] MEDS: REFRESH EYE DROPS (PF) 1 DROPS BOTH EYES ×4 (08:44→21:45)
[2024-09-15 09:11] LABS: Hematocrit 28.6 % (39.0-52.0); Hemoglobin 9.5 g/dL (13.0-18.0); Mean Corp Hgb Conc. 33.2 g/dL (33.0-37.0); Mean Corpuscular Volume 87.2 fL (80.0-94.0); Red Blood Cell Count 3.28 10^6/uL (4.70-6.10); Red Cell Dist. Width 14.3 % (11.5-14.5); White Blood Cell Count 6.7 10^3/uL (4.8-10.8)
[2024-09-15 09:23] LABS: Blood Urea Nitrogen 7 mg/dl (9-20); Calcium 7.3 mg/dl (8.4-10.2); Carbon Dioxide 25 mmol/L (22-30); Chloride 100 mmol/L (98-107); Estimated Creatinine Clearance 80 ml/min; Glucose 64 mg/dl (70-99); Potassium 3.2 mmol/L (3.5-5.1); Sodium 132 mmol/L (135-145); eGFR > 60.00
[2024-09-15 09:53] LABS: Mean Platelet Volume 8.7 fL (7.4-10.4); Platelet Count 450 10^3/uL (130-400)
--- NOTE | 2024-09-15 11:12 | W.PN.HOSP.TC ---
Addendum entered and electronically signed by Romaine Jones MD 09/15/24 11:18:
GENERAL: chronically ill appearing, looks older than stated age
HEENT: NC/AT
HEART: regular rate and rhythm, +S1, +S2
LUNGS : clear to auscultation bilaterally
ABDOM: soft, nontender, nondistended, + bowel sounds
EXT: no cyanosis, clubbing, or edema
NEUROLOGIC: grossly intact , conversant
Psych-calm
Original Note:
Today's Communication/Plan
-
PT/OT
Trend bmp
replete k
probiotics
dietary eval
Assessment / Plan
Assessment / Plan
Impression
#Weakness likely multifactorial secondary to malignancy versus deconditioning versus dehydration
s/p IVF. Monitor PO intake. Dietary eval.
PT and OT
May require placement
Check influenza and [id number].
#Mild acute on chronic hyponatremia
Gentle additional 1 L of normal saline-can dc
Trend BMP
Na improved.
#Loose bowel movements likely overflow diarrhea
Abdominal x-ray negative for obstruction. Possible mild enteritis.
Monitor for diet tolerance. Low residue diet. Start probiotics.
#Chronic pain secondary to malignancy
Right lower extremity pain due to hematoma
Pain control
Orthopedic evaluated recently with outpatient management
Continue with physical and Occupational Therapy
#Metastatic melanoma on immunotherapy/severe peripheral neuropathy
Being managed at [facility]
Continue with home regimen of steroids
#Hypokalemia-replete/monitor.
Chronic medical problems
COPD-- continue albuterol HFA PRN, and Ellipta
HFmrEF--severe mitral regurgitation- hold furosemide - continue carvedilol - monitor daily weights and I&O's
hypothyroidism- continue levothyroxine
chronic headaches/migraines - continue amitriptyline-if persist can go for Neuro opinion
adrenal insufficiency
chronic/functional diarrhea
Code status: Full Code
DVT Prophylaxis: Lovenox Sq
Anticipated Discharge: Within 24 hours
Subjective/Interval History
-
Date of Service: September 15, 2024
no bm overnight or this morning
tolerating liquid for breakfast
Objective Data
-
Labs:
Laboratory Results
09/15/24
08:01
WBC 6.7
Hgb 9.5 L D
Hct 28.6 L
Plt Count 450 H D
Sodium 132 L
Potassium 3.2 L
Chloride 100
Carbon Dioxide 25
BUN 7 L
Creatinine 0.8
Glucose 64 L
Calcium 7.3 L
Vital Signs:
Vital Signs
Temp Pulse Resp BP Pulse Ox
98.6 F 89 18 107/63 96
09/15/24 07:00 09/15/24 07:00 09/15/24 07:00 09/15/24 07:00 09/15/24 07:00
I&O
09/14/24 09/15/24 09/16/24
06:59 06:59 06:59
Intake Total 1440 / 1440
Balance 1440 / 1440
Data Reviewed
-
Total Time Spent with Patient (in minutes): 55
[2024-09-15] MEDS: KCL 40 MEQ PO (11:24)
[2024-09-15] MEDS: DILAUDID 2 MG PO ×2 (11:34→21:57)
[2024-09-15 12:48] VITALS: BP 112/67
[2024-09-15 12:50] VITALS: BP 112/67; BP 98/58; PULSE 95; O2SAT 93
[2024-09-15 13:12] VITALS: BMI 22.7
[2024-09-15] MEDS: CORTEF 10 MG PO (13:51)
[2024-09-15 15:00] VITALS: BP 95/58
[2024-09-15] MEDS: LOVENOX 40 MG SC (17:23)
[2024-09-15] MEDS: SPIRIVA RESPIMAT 2.5 MCG 2 PUFF INH (20:00)
[2024-09-15] MEDS: STRIVERDI RESPIMAT 2 PUFF INH (20:00)
[2024-09-15] MEDS: ELAVIL 20 MG PO (21:44)
[2024-09-15 21:45] VITALS: BP 124/74
[2024-09-15 23:00] VITALS: BP 96/67
[2024-09-16] MEDS: DILAUDID 2 MG PO ×3 (04:58→22:19)
[2024-09-16] MEDS: SYNTHROID 150 MCG PO (05:00)
[2024-09-16 06:00] VITALS: BMI 22.8
[2024-09-16 07:50] VITALS: BP 106/64
[2024-09-16] MEDS: CORTEF 20 MG PO (07:58)
[2024-09-16] MEDS: NEURONTIN 600 MG PO ×2 (07:59→20:25)
[2024-09-16] MEDS: VITAMIN B1 100 MG PO (07:59)
[2024-09-16] MEDS: VITAMIN B-12 1000 MCG PO (08:00)
[2024-09-16] MEDS: VITAMIN D3 (cholecalciferol) 25 MCG PO (08:00)
[2024-09-16] MEDS: PROTONIX 40 MG PO (08:00)
[2024-09-16] MEDS: SENOKOT-S 1 TABLET PO (08:01)
[2024-09-16] MEDS: PEPCID 20 MG PO ×2 (08:01→20:25)
[2024-09-16] MEDS: LIPITOR 40 MG PO (08:02)
[2024-09-16] MEDS: MIRALAX 17 GRAMS PO (08:06)
[2024-09-16] MEDS: COREG 3.125 MG PO ×2 (08:06→20:25)
[2024-09-16] MEDS: VISBIOME 2 CAP PO (08:07)
[2024-09-16] MEDS: REFRESH EYE DROPS (PF) 1 DROPS BOTH EYES ×4 (08:07→20:31)
[2024-09-16] MEDS: TYLENOL 650 MG PO (10:24)
[2024-09-16 10:29] LABS: Blood Urea Nitrogen 10 mg/dl (9-20); Calcium 7.9 mg/dl (8.4-10.2); Carbon Dioxide 30 mmol/L (22-30); Chloride 97 mmol/L (98-107); Estimated Creatinine Clearance 64 ml/min; Glucose 122 mg/dl (70-99); Potassium 3.5 mmol/L (3.5-5.1); Sodium 130 mmol/L (135-145); eGFR > 60.00
--- NOTE | 2024-09-16 12:06 | W.PN.HOSP.TC ---
Today's Communication/Plan
-
calorie count
increase po intake
trend bmp
Assessment / Plan
Assessment / Plan
Impression
#Weakness likely multifactorial secondary to malignancy versus deconditioning versus dehydration
s/p IVF. Monitor PO intake. Dietary eval.
PT and OT-SNF but patient refusing. Will try to d/w again
May require placement
Check influenza and [id number].
Calorie count x 48h.
#Mild acute on chronic hyponatremia likely 2/2 decrease po intake
Gentle additional 1 L of normal saline-can dc
Trend BMP
encourage to increase po intake
check urine studies
#Loose bowel movements likely overflow diarrhea
Abdominal x-ray negative for obstruction. Possible mild enteritis.
Monitor for diet tolerance. Low residue diet. Start probiotics.
#Chronic pain secondary to malignancy
Right lower extremity pain due to hematoma
Pain control
Orthopedic evaluated recently with outpatient management
Continue with physical and Occupational Therapy
#Metastatic melanoma on immunotherapy/severe peripheral neuropathy
Being managed at [facility]
Continue with home regimen of steroids
#Hypokalemia-replete/monitor.
Chronic medical problems
COPD-- continue albuterol HFA PRN, and Ellipta
HFmrEF--severe mitral regurgitation- hold furosemide - continue carvedilol - monitor daily weights and I&O's
hypothyroidism- continue levothyroxine
chronic headaches/migraines - continue amitriptyline-if persist can go for Neuro opinion
adrenal insufficiency
chronic/functional diarrhea
Code status: Full Code
DVT Prophylaxis: Lovenox Sq
PT/OT-SNF. Refusing. May benefit from placement
Anticipated Discharge: 24 - 48 hours
Subjective/Interval History
-
Date of Service: September 16, 2024
states not much bm
appetite is slowly improving -ate half of omelette
emotional this morning
Objective Data
-
Labs:
Laboratory Results
09/16/24 09/16/24
08:48 09:53
Sodium Cancelled 130 L
Potassium Cancelled 3.5
Chloride Cancelled 97 L
Carbon Dioxide Cancelled 30
BUN Cancelled 10
Creatinine Cancelled 1.0
Glucose Cancelled 122 H
Calcium Cancelled 7.9 L
Vital Signs:
Vital Signs
Temp Pulse Resp BP Pulse Ox
97.6 F 79 16 106/64 95
09/16/24 07:50 09/16/24 07:50 09/16/24 07:50 09/16/24 07:50 09/16/24 07:50
I&O
09/15/24 09/16/24 09/17/24
06:59 06:59 06:59
Intake Total 1440 / 1440 1540 / 1540
Balance 1440 / 1440 1540 / 1540
Physical Exam
-
General: No Apparent Distress and Appears Chronically Ill
HEENT: Normocephalic
Respiratory: Clear to Auscultation
Cardiac: Regular Rhythm
GI: Soft, Nontender, Nondistended and Normal Bowel Sounds
Musculoskeletal: No Edema
Neuro: Awake, Alert, Oriented and AO x 3
Psych: Anxious
--- NOTE | 2024-09-16 12:18 | CM ---
Patient seen bedside, initial assessment completed. Patient seen bedside, initial assessment completed. Patient resides independently in a barn, 17 steps to enter. Patient reports having a RW and cane at home but typically does not use them. Patient
reports he has had two bad experiences at SNF in the past and is not agreeable to SNF. Patient confirms he is current with [facility] and has been approved for waiver services through [place], working on finding provider. Patient also has meals and
transportation through waiver services, additional resources through [employer] provided to patient- placed in chart. Patient PCP Jayesh Ma, pharmacy used [facility] reviewed verbally, provided with copy, placed in chart. TT to
Hospitalist with update. CM will continue to follow for all discharge planning needs.
Plan; home with [facility], waiver services, not agreeable to SNF at this time.
[2024-09-16] MEDS: CORTEF 10 MG PO (14:01)
--- NOTE | 2024-09-16 14:27 | CHAP ---
Called by nursing for Drea and her family. Her sister, Aileen, and brother, Juan Carlos, were present, along with extended family members. They shared background about Drea, who is beloved by all as 'Aunt Drea.' We offered prayers from the [employer] and asked God's blessings for Drea and family, giving thanks. Emotional and spiritual support provided, along with a prayer blanket.
--- NOTE | 2024-09-16 14:44 | CHAP ---
Called by 4W nursing for Shreyas, who is struggling with pain, and with the decision about next steps. He apparently does not have a strong support system at home, but still wishes to return there. He shared background about his spiritual life - he
does find solace and strength in God. He welcomed prayer, and became tearful at the end. Emotional and spiritual support provided, along with assurance of our on-going availability.
[2024-09-16 15:56] VITALS: BP 96/55
[2024-09-16 16:03] LABS: Osmolality Urine 398 mOsm/kg (300-900)
[2024-09-16 16:08] LABS: Urine Sodium 17 mmol/L (30-90)
[2024-09-16] MEDS: LOVENOX 40 MG SC (17:21)
[2024-09-16] MEDS: STRIVERDI RESPIMAT 2 PUFF INH (19:45)
[2024-09-16] MEDS: SPIRIVA RESPIMAT 2.5 MCG 2 PUFF INH (19:45)
[2024-09-16 19:56] VITALS: BP 102/62
[2024-09-16] MEDS: SENOKOT-S PO (20:29)
[2024-09-16] MEDS: ELAVIL 20 MG PO (20:31)
[2024-09-16 23:25] VITALS: BP 100/63
[2024-09-17] MEDS: SYNTHROID 150 MCG PO (05:30)
[2024-09-17] MEDS: DILAUDID 2 MG PO ×2 (05:34→12:36)
[2024-09-17 06:00] VITALS: BMI 23.0
[2024-09-17] MEDS: CORTEF 20 MG PO (08:00)
[2024-09-17] MEDS: PROTONIX 40 MG PO (08:01)
[2024-09-17] MEDS: VISBIOME 2 CAP PO (08:02)
[2024-09-17] MEDS: VITAMIN B1 100 MG PO (08:02)
[2024-09-17] MEDS: NEURONTIN 600 MG PO ×2 (08:06→20:08)
[2024-09-17] MEDS: COREG 3.125 MG PO ×2 (08:07→20:08)
[2024-09-17] MEDS: PEPCID 20 MG PO ×2 (08:08→20:07)
[2024-09-17] MEDS: LIPITOR 40 MG PO (08:08)
[2024-09-17] MEDS: VITAMIN D3 (cholecalciferol) 25 MCG PO (08:09)
[2024-09-17] MEDS: VITAMIN B-12 1000 MCG PO (08:09)
[2024-09-17] MEDS: REFRESH EYE DROPS (PF) 1 DROPS BOTH EYES ×3 (08:10→18:00)
[2024-09-17] MEDS: MIRALAX 17 GRAMS PO (08:10)
[2024-09-17] MEDS: SENOKOT-S PO ×2 (08:11→20:08)
[2024-09-17 08:12] VITALS: BP 122/77
[2024-09-17 09:26] LABS: Blood Urea Nitrogen 10 mg/dl (9-20); Calcium 8.2 mg/dl (8.4-10.2); Carbon Dioxide 30 mmol/L (22-30); Chloride 97 mmol/L (98-107); Estimated Creatinine Clearance 72 ml/min; Glucose 99 mg/dl (70-99); Potassium 3.8 mmol/L (3.5-5.1); Sodium 132 mmol/L (135-145); eGFR > 60.00
--- NOTE | 2024-09-17 11:29 | W.PN.HOSP.TC ---
Today's Communication/Plan
-
Palliative eval in am
dietary eval
calorie count
SNF vs. VN
Assessment / Plan
Assessment / Plan
Impression
#Weakness likely multifactorial secondary to malignancy versus deconditioning versus dehydration
s/p IVF. Monitor PO intake. Dietary eval.
PT and OT-SNF but patient refusing. Will try to d/w again
May require placement
Check influenza and [id number].
Calorie count x 48h.
May benefit from palliative eval tomm
#Mild acute on chronic hyponatremia likely 2/2 decrease po intake
Gentle additional 1 L of normal saline-can dc
Trend BMP
encourage to increase po intake
Na stabilize
#Loose bowel movements likely overflow diarrhea
Abdominal x-ray negative for obstruction. Possible mild enteritis.
Monitor for diet tolerance. Low residue diet. Start probiotics.
#Chronic pain secondary to malignancy
#Right lower extremity pain due to hematoma
Pain control
Orthopedic evaluated recently with outpatient management
Continue with physical and Occupational Therapy
#Metastatic melanoma on immunotherapy/severe peripheral neuropathy
Being managed at [facility]
Continue with home regimen of steroids
#Hypokalemia-replete/monitor.
Chronic medical problems
COPD-- continue albuterol HFA PRN, and Ellipta
HFmrEF--severe mitral regurgitation- hold furosemide - continue carvedilol - monitor daily weights and I&O's
hypothyroidism- continue levothyroxine
chronic headaches/migraines - continue amitriptyline-if persist can go for Neuro opinion
adrenal insufficiency
chronic/functional diarrhea
Code status: Full Code
DVT Prophylaxis: Lovenox Sq
PT/OT-SNF. Refusing. May benefit from placement. If refusing SNF plan for home VN
Anticipated Discharge: Within 24 hours
Subjective/Interval History
-
Date of Service: September 17, 2024
states of sever neuropathic leg pain
appetite improving
had bm earlier
Objective Data
-
Labs:
Laboratory Results
09/17/24
08:42
Sodium 132 L
Potassium 3.8
Chloride 97 L
Carbon Dioxide 30
BUN 10
Creatinine 0.9
Glucose 99
Calcium 8.2 L
Vital Signs:
Vital Signs
Temp Pulse Resp BP Pulse Ox
97.7 F 87 18 122/77 96
09/17/24 08:12 09/17/24 08:12 09/17/24 08:12 09/17/24 08:12 09/17/24 08:12
I&O
09/16/24 09/17/24 09/18/24
06:59 06:59 06:59
Intake Total 1540 / 1540 480 / 480
Balance 1540 / 1540 480 / 480
[2024-09-17] MEDS: CORTEF 10 MG PO (15:17)
[2024-09-17 15:50] VITALS: BP 107/67
[2024-09-17] MEDS: LOVENOX 40 MG SC (18:00)
[2024-09-17] MEDS: STRIVERDI RESPIMAT 2 PUFF INH (19:47)
[2024-09-17] MEDS: SPIRIVA RESPIMAT 2.5 MCG 2 PUFF INH (19:47)
[2024-09-17 19:59] VITALS: BP 107/65
[2024-09-17] MEDS: REFRESH EYE DROPS (PF) BOTH EYES ×2 (21:01→21:03)
[2024-09-17] MEDS: ELAVIL 20 MG PO (21:01)
[2024-09-17 22:42] VITALS: BP 114/57
[2024-09-18] MEDS: SYNTHROID 150 MCG PO (05:18)
[2024-09-18 06:00] VITALS: BMI 23.0
[2024-09-18 06:43] VITALS: BP 118/72
[2024-09-18] MEDS: PROTONIX 40 MG PO (08:11)
[2024-09-18] MEDS: SENOKOT-S PO ×2 (08:11→19:24)
[2024-09-18] MEDS: PEPCID 20 MG PO ×2 (08:11→19:43)
[2024-09-18] MEDS: MIRALAX PO (08:11)
[2024-09-18] MEDS: VITAMIN B-12 1000 MCG PO (08:11)
[2024-09-18] MEDS: VITAMIN D3 (cholecalciferol) 25 MCG PO (08:11)
[2024-09-18] MEDS: COREG 3.125 MG PO ×2 (08:11→19:43)
[2024-09-18] MEDS: VITAMIN B1 100 MG PO (08:11)
[2024-09-18] MEDS: CORTEF 20 MG PO (08:11)
[2024-09-18] MEDS: LIPITOR 40 MG PO (08:11)
[2024-09-18] MEDS: NEURONTIN 600 MG PO ×3 (08:12→21:06)
[2024-09-18] MEDS: VISBIOME 2 CAP PO (08:12)
[2024-09-18] MEDS: DILAUDID 2 MG PO ×2 (08:13→15:16)
[2024-09-18] MEDS: REFRESH EYE DROPS (PF) 1 DROPS BOTH EYES ×3 (08:13→17:28)
--- NOTE | 2024-09-18 08:51 | CM ---
Addendum entered by Anna Haider 09/18/24 15:47:
Chart reviewed and patient is now agreeable to skilled placement options reviewed with patient and patient has selected [facility], [facility], [facility], and [facility] referrals sent.
Original Note:
patient registration manager reviewed patient's chart and reviewed physical therapy notes 09/15/24 and patient not qualify for skilled placement with his insurance, patient was ambulating 80 feet with rolling walker and supervision. Patient's friend reached out to
skilled nursing case manager and skilled nursing case manager returned call and left a message.
Plan; Will await updated physical therapy notes from today, patient is current with [facility] and has WAIVER services in home.
[2024-09-18] MEDS: TYLENOL 650 MG PO ×2 (11:18→17:28)
--- NOTE | 2024-09-18 11:25 | W.PN.HOSP.TC ---
Today's Communication/Plan
-
rehab eval
snf vs. home vn
palliative care eval
start dispo
Assessment / Plan
Assessment / Plan
Impression
#Weakness likely multifactorial secondary to malignancy versus deconditioning versus dehydration
s/p IVF. Monitor PO intake. Dietary eval.
PT and OT--reval pending
May require placement
Check influenza and [id number].
Calorie count x 48h.
May benefit from palliative eval today. c/s placed.
#Mild acute on chronic hyponatremia likely 2/2 decrease po intake
Gentle additional 1 L of normal saline-can dc
Trend BMP
encourage to increase po intake
Na stabilize
#Loose bowel movements likely overflow diarrhea
Abdominal x-ray negative for obstruction. Possible mild enteritis.
Monitor for diet tolerance. Low residue diet. Start probiotics.
#Chronic pain secondary to malignancy
#Right lower extremity pain due to hematoma
Pain control
Orthopedic evaluated recently with outpatient management
Continue with physical and Occupational Therapy
#Metastatic melanoma on immunotherapy/severe peripheral neuropathy
Being managed at [facility]
Continue with home regimen of steroids
#Hypokalemia-replete/monitor.
Chronic medical problems
COPD-- continue albuterol HFA PRN, and Ellipta
HFmrEF--severe mitral regurgitation- hold furosemide - continue carvedilol - monitor daily weights and I&O's
hypothyroidism- continue levothyroxine
chronic headaches/migraines - continue amitriptyline-if persist can go for Neuro opinion
adrenal insufficiency
chronic/functional diarrhea
Code status: Full Code
DVT Prophylaxis: Lovenox Sq
PT/OT-reval. Cm aware. Pallaitve care eval.
Anticipated Discharge: Today
Subjective/Interval History
-
Date of Service: September 18, 2024
Appetite improved
tolerating diet
having bm
remains with chronic pain
Objective Data
-
Vital Signs:
Vital Signs
Temp Pulse Resp BP Pulse Ox
98.2 F 83 18 118/72 97
09/18/24 06:43 09/18/24 06:43 09/18/24 06:43 09/18/24 06:43 09/18/24 06:43
I&O
09/17/24 09/18/24 09/19/24
06:59 06:59 06:59
Intake Total 480 / 480 840 / 840
Output Total 1175 / 1175
Balance 480 / 480 -335 / -335
Physical Exam
-
General: No Apparent Distress and Appears Chronically Ill
HEENT: Normocephalic
Respiratory: Clear to Auscultation
Cardiac: Regular Rhythm
GI: Soft, Nontender, Nondistended and Normal Bowel Sounds
Musculoskeletal: No Edema
Neuro: Awake, Alert, Oriented and AO x 3
Psych: Calm
--- NOTE | 2024-09-18 12:11 | W.CON.PAL ---
Consultation
-
Date/Time Consultation Requested: 09/18/24
Date/Time Consultation Performed: 09/18/24
Performing Provider: Tomasa Munoz
Reason for Consult: Symptom & Pain Management
Primary Diagnosis: metastatic melanoma
Consult Requested By: Patient and Patient's Physician
Reason for Admission
Illness Course/HPI
74 year old M with PMH of metastatic melanoma to lung (follows at [facility]) with cancer related pain/neuropathy, COPD, neuropathy, anemia, opioid-induced constipation, iatrogenic adrenal insufficiency, hypertension, hypothyroidism admitted from home
with weakness and loose BMs. Also with worsening vision issues due to immunotherapy and cancelled most recent appointment due to this.
Upon admission, mildly hyponatremic and dehydrated from diarrhea. Given IVF with improvement. PT recommending SNF but he is declining this. Per chart review, also with multiple social issues at home including difficulty with paying rent and states
he has depleted majority of his financial resources. SW following. Lives at home alone. Has meals and transport through the [facility] program, is also approved for in home services and working on finding an agency to provide aide hours per CM notes.
Taking amitriptyline and gabapentin for neuropathy as well as PRN dilaudid infrequently.
Seen at bedside. States he got good news from [facility] today about his cancer in his lungs no longer showing up on recent scans. Is considering decreasing amount of time between sessions due to side effects. Reports he doesnt feel ready to go home with
how weak he is and wants to go to rehab. Knows he would benefit from placement as well and seems to be coming to terms with the idea that this is likely his next step and knows he would benefit from this. In terms of his pain, reports severe
neuropathy in his feet and knee/thigh/calf pain from this as well. Takes dilaudid PRN which he feels is more effective than oxycodone that he received before. He has not been taking this much, encouraged him to take is if he needs it q4. Discussed
increasing gabapentin to 600 TID and he is agreeable.
He has 3 children he is estranged from but recently got a message that at least 2/3 want to see him again. He also has 2 sisters who he speaks to. Reports he does have living will/POA paperwork naming his best friend Chandni as his MDM.
Pain & Symptom Assessment
Patient Symptoms
Patient Symptoms: Pain and Fatigue
[place] Symptom Scale 0=none, 10=worst
Pain: 5
Shortness of Breath: 0
Depressed: 0
Objective Data
-
Objective Data:
Vital Signs
Temp Pulse Resp BP Pulse Ox
98.2 F 83 18 118/72 97
09/18/24 06:43 09/18/24 06:43 09/18/24 06:43 09/18/24 06:43 09/18/24 06:43
Laboratory Results
09/15/24 08:01
09/17/24 08:42
Total Protein Cancelled 09/14/24 11:01
Albumin Cancelled 09/14/24 11:01
Palliative Performance Scale
Palliative Performance Scale:
PPS Level Ambulation Activity & Evidence of Disease Self Care Intake Conscious Level
100% Full Normal Activity & Work; Full Intake Full
No Evidence of Disease
90% Full Normal Activity & Work; Full Normal Full
Some Evidence of Disease
80% Full Normal Activity with Effort Full Normal or Full
Some Evidence of Disease Reduced
70% Reduced Unable Normal Job/Work Full Normal or Full
Significant Disease Reduced
60% Reduced Unable Hobby/Housework Occasional Normal or Full or Confusion
Significant Disease Assistance Reduced
50% Mainly Sit/Lie Unable to do Any Work Considerable Normal or Full or Confusion
Extensive Disease Assistance Req'd Reduced
40% Mainly in Bed Unable to do Most Activity Mainly Assistance Normal or Full or Drowsy;
Extensive Disease Reduced +/- Confusion
30% Totally Bed Unable to do Any Activity Total Care Normal or Full or Drowsy;
Bound Extensive Disease Reduced +/- Confusion
20% Totally Bed Bound Unable to do Any Activity Total Care Minimal to Full or Drowsy;
Extensive Disease Sips +/- Confusion
10% Totally Bed Bound Unable to do Any Activity Total Care Mouth Care Drowsy or Coma;
Extensive Disease Only +/- Confusion
0%
PPS Score Level:
Palliative Performance Score Response
Palliative Performance Score Response: 60%
Physical Exam
-
General: No Apparent Distress and Appears Chronically Ill
HEENT: Normocephalic
Respiratory: Clear to Auscultation
Cardiac: Regular Rhythm
Peripheral Vascular: No Edema
GI: Soft and Nontender
Musculoskeletal: Normal Gait & Station
Skin: Warm
Neuro: AO x 3
Psych: Calm
Assessment / Plan
-
Assessment/Plan:
74 year old M with metastatic melanoma with neuropathy/pain, currently on immunotherapy.
- plan for PT to come back and re -eval for SNF placement as patient feels unsafe going home. He is open to LTC placement thereafter or down the line. He has to be out of his apartment in 2 months, and states he cant make rent this month. Knows he
would benefit from LTC placement and has Medicaid. Will touch base with CM.
- increase gabapentin to 600mg TID, amitriptyline 20mg at bedtime
- continue dilaudid 2mg q4 PRN, encouraged use
- can follow up as an outpatient with palliative if he returns home from SNF
Care Reviewed
Data Reviewed
Chest X ray: Image Reviewed
Medical Tests: I reviewed
Reviewed with: Patient, Physician and Nurse
[2024-09-18 15:00] VITALS: BP 114/67
[2024-09-18] MEDS: CORTEF 10 MG PO (15:16)
[2024-09-18] MEDS: LOVENOX 40 MG SC (17:28)
[2024-09-18 19:23] VITALS: BP 110/69
[2024-09-18] MEDS: SPIRIVA RESPIMAT 2.5 MCG 2 PUFF INH (20:20)
[2024-09-18] MEDS: STRIVERDI RESPIMAT 2 PUFF INH (20:21)
[2024-09-18] MEDS: ELAVIL 20 MG PO (21:06)
[2024-09-18] MEDS: REFRESH EYE DROPS (PF) BOTH EYES ×2 (21:07→21:08)
[2024-09-18 23:31] VITALS: BP 106/65
[2024-09-19] MEDS: MELATONIN 5 MG PO (03:08)
[2024-09-19] MEDS: SYNTHROID 150 MCG PO (03:08)
[2024-09-19 05:30] VITALS: BMI 22.8
[2024-09-19 07:00] VITALS: BP 131/78
[2024-09-19] MEDS: MIRALAX PO (07:46)
[2024-09-19] MEDS: SENOKOT-S PO (07:46)
[2024-09-19] MEDS: VITAMIN B1 100 MG PO (08:03)
[2024-09-19] MEDS: CORTEF 20 MG PO (08:03)
[2024-09-19] MEDS: NEURONTIN 600 MG PO (08:03)
[2024-09-19] MEDS: PROTONIX 40 MG PO (08:03)
[2024-09-19] MEDS: VITAMIN D3 (cholecalciferol) 25 MCG PO (08:04)
[2024-09-19] MEDS: VITAMIN B-12 1000 MCG PO (08:04)
[2024-09-19] MEDS: REFRESH EYE DROPS (PF) 1 DROPS BOTH EYES ×2 (08:04→14:26)
[2024-09-19] MEDS: COREG 3.125 MG PO (08:04)
[2024-09-19] MEDS: VISBIOME 2 CAP PO (08:04)
[2024-09-19] MEDS: LIPITOR 40 MG PO (08:04)
[2024-09-19] MEDS: PEPCID 20 MG PO (08:04)
[2024-09-19] MEDS: DILAUDID 2 MG PO ×2 (08:19→14:44)
[2024-09-19] MEDS: TYLENOL 650 MG PO ×2 (08:20→14:42)
--- NOTE | 2024-09-19 09:58 | W.PN.HOSP.TC ---
Today's Communication/Plan
-
await placement
medically stable
Restart lasix
Assessment / Plan
Assessment / Plan
Impression
#Weakness likely multifactorial secondary to malignancy versus deconditioning versus dehydration
s/p IVF. Monitor PO intake. Dietary eval.
PT and OT--SNF. Cm aware.
May require placement
Check influenza and [id number].
Appetite improved.
May benefit from palliative eval-correspondence noted.
#Mild acute on chronic hyponatremia likely 2/2 decrease po intake
Gentle additional 1 L of normal saline-can dc
Trend BMP
encourage to increase po intake
Na stabilize
repeat labs
#Loose bowel movements likely overflow diarrhea
Abdominal x-ray negative for obstruction. Possible mild enteritis.
Monitor for diet tolerance. Low residue diet. Start probiotics.
#Chronic pain secondary to malignancy
#Right lower extremity pain due to hematoma
Pain control
Orthopedic evaluated recently with outpatient management
Continue with physical and Occupational Therapy
#Metastatic melanoma on immunotherapy/severe peripheral neuropathy
Being managed at [facility]
Continue with home regimen of steroids
Gabapentin increased to 600mg TID from BID
cont amitryptline
#Hypokalemia-replete/monitor.
Chronic medical problems
COPD-- continue albuterol HFA PRN, and Ellipta
HFmrEF--severe mitral regurgitation- restart furosemide at 20mg daily (appetite fluctuates) - continue carvedilol - monitor daily weights and I&O's
hypothyroidism- continue levothyroxine
chronic headaches/migraines - continue amitriptyline-if persist can go for Neuro opinion
adrenal insufficiency
chronic/functional diarrhea
Code status: Full Code
DVT Prophylaxis: Lovenox Sq
PT/OT-SNF. Cm aware. Await placement
Anticipated Discharge: Today
Subjective/Interval History
-
Date of Service: September 19, 2024
ambulating with walker
states intermittent knee pain
Objective Data
-
Vital Signs:
Vital Signs
Temp Pulse Resp BP Pulse Ox
97.7 F 91 19 131/78 96
09/19/24 07:00 09/19/24 07:00 09/19/24 07:00 09/19/24 07:00 09/19/24 07:00
I&O
09/18/24 09/19/24 09/20/24
06:59 06:59 06:59
Intake Total 840 / 840 720 / 720
Output Total 1175 / 1175 400 / 400
Balance -335 / -335 320 / 320
Physical Exam
-
General: No Apparent Distress and Appears Chronically Ill
HEENT: Normocephalic
Respiratory: Clear to Auscultation
Cardiac: Regular Rhythm
GI: Soft, Nontender, Nondistended and Normal Bowel Sounds
Musculoskeletal: No Edema
Neuro: Awake, Alert, Oriented, AO x 3 and No Motor Deficits; Negative Tremors, No Sensory Deficits or Slurred Speech
Psych: Calm
Data Reviewed
-
Total Time Spent with Patient (in minutes): 55
--- NOTE | 2024-09-19 12:09 | W.DCSUMMARY ---
Discharge Summary
Discharge Data
Date of Admission: 09/14/24
Date of Discharge: 09/19/24
-
Pending Results: No
Hospital Course
74-year-old male past medical metastatic melanoma to lung , chronic opiate dependent due to malignancy, neuropathy due to immunotherapy, right lower extremity pain due to recent hematoma, metastatic , severe peripheral neuropathy, COPD, chronic
congestive heart failure, hypothyroidism, chronic headache migraines, adrenal insufficiency, chronic hyponatremia who was presented with weakness. Patient was found to have mild hyponatremia. Patient was severely dehydrated and started on IV fluid
resuscitation. Sodium stabilized. Patient abdominal x-ray was negative for obstruction. Patient was tolerating diet. Patient was eval by palliative care and gabapentin 600 mg frequency was increased to 3 times daily. Patient pain was controlled
with the current regimen. Patient was also eval by physical and Occupational Therapy with plan to discharge to assisted facility.
Discharge Plan
-
Patient Disposition: Penitentiary/SNF
Discharge Diagnosis/Procedures: Weakness likely multifactorial secondary to malignancy versus deconditioning versus dehydration
Mild hyponatremia
Condition: Fair
Diet: 2 Gram Sodium and Restrict fluids to 48 oz
Activity: With assistance and As tolerated
Driving Restrictions: As prior to admission
Others Tests: BMP in 1 week via primary doctor.
Specialty Instructions: Weigh Daily- Call MD for wt gain/loss 3 lbs overnight/5 lbs in 1 week
Referrals:
Jayesh Ma PA [Family Provider] - in less than 1 week
Prescriptions:
New
gabapentin 300 mg Capsule
600 mg PO TID 30 Days Qty: 180 0RF
Rx Instructions:
Hold for SBP<105
Continued
pantoprazole [Protonix] 40 mg Tablet,Delayed Release (Dr/Ec)
40 mg PO DAILY
hydrocortisone 10 mg Tablet
20 mg PO DAILY
hydrocortisone 10 mg Tablet
10 mg PO DAILY@1400
Anoro Ellipta 62.5-25 mcg/actuation Blister With Device
1 inh INHALATION R DAILY
thiamine HCl (vitamin B1) 100 mg Tablet
100 mg PO DAILY
acetaminophen [Tylenol Extra Strength] 500 mg Tablet
1,000 mg PO Q6HPRN PRN (Reason: headache)
cholecalciferol (vitamin D3) [Vitamin D3] 25 mcg (1,000 unit) Tablet
25 mcg PO DAILY
Arnuity Ellipta 100 mcg/actuation Blister With Device
1 inh INHALATION R QPM
atorvastatin 40 mg Tablet
40 mg PO DAILY
cyanocobalamin (vitamin B-12) 1,000 mcg Tablet
1,000 mcg PO DAILY
potassium 99 mg Tablet
99 mg PO DAILY
amitriptyline 10 mg Tablet
20 mg PO HS
albuterol sulfate 90 mcg/actuation Hfa Aerosol Inhaler
2 puff INHALATION R Q4HPRN PRN (Reason: sob)
carvedilol [Coreg] 3.125 mg Tablet
3.125 mg PO BID
magnesium oxide 500 mg magnesium Tablet
500 mg PO DAILY
polyethylene glycol 3350 17 gram powder in packet
17 g PO DAILY
Rx Instructions:
stop if 2 or more bowel movement per day
sennosides-docusate sodium 8.6-50 mg tablet
1 tab PO BID
famotidine 20 mg tablet
20 mg PO BID
levothyroxine 150 mcg tablet
150 mcg PO DAILY@0600
gabapentin 300 mg capsule
600 mg PO BID
Refresh Classic (PF) 1.4-0.6 % dropperette
1 drops BOTH EYES QID
hydromorphone 2 mg Tablet
2 mg PO Q4HPRN PRN (Reason: moderate-severe pain) 3 Days Qty: 18 0RF
Changed
furosemide [Lasix] 40 mg tablet
20 mg PO DAILY Qty: 0 0RF
Rx Instructions:
Hold for SBP<105
Discontinued
prochlorperazine maleate 5 mg Tablet
5 mg PO TIDPRN PRN (Reason: headache)
Discharge Orders:
Discharge Patient (As Directed); Ordered 09/19/24
Ordered By: Romaine Jones
Discharge Date and Time
Discharge Date/Time: 09/19/24 15:32
Print Language: SOUTH KOREAN
[2024-09-19] MEDS: ProAmatine 5 MG PO (12:10)
--- NOTE | 2024-09-19 13:34 | CM ---
Patient has been accepted and bed is available at [facility] today, Auth received from [facility], 7 days skilled [phone], Per admissions at [facility] bed is available today, transport through family/friends tack picker 3pm.
[facility]
Report [phone]

Plan; Patient to transfer to [facility] today 3pm tack picker.
[2024-09-19] MEDS: CORTEF 10 MG PO (14:36)
[2024-09-19 15:05] VITALS: BP 122/66
== END 2024-09-19 15:32 ==
LOC: 4 WEST ACU 17:39
PROVIDERS: Nurse Practitioner; Nurse Practitioner Family; ADMITTING PHYSICIAN Hospitalist; EMERGENCY PHYSICIAN Emergency Medicine; FAMILY PHYSICIAN Physician Assistant; OTHER PHYSICIAN Nurse Practitioner Gerontology
DX: R53.1 Weakness (principal); G89.3 Neoplasm related pain (acute) (chronic); R62.7 Adult failure to thrive; C43.9 Malignant melanoma of skin, unspecified; C78.00 Secondary malignant neoplasm of unspecified lung; M54.9 Dorsalgia, unspecified; M25.512 Pain in left shoulder; M25.511 Pain in right shoulder; M79.672 Pain in left foot; M79.671 Pain in right foot; M79.642 Pain in left hand; M79.641 Pain in right hand; M25.562 Pain in left knee; M25.561 Pain in right knee; D64.9 Anemia, unspecified; E87.1 Hypo-osmolality and hyponatremia; E27.40 Unspecified adrenocortical insufficiency; I11.0 Hypertensive heart disease with heart failure; I50.22 Chronic systolic (congestive) heart failure; J44.9 Chronic obstructive pulmonary disease, unspecified; F17.200 Nicotine dependence, unspecified, uncomplicated; F10.10 Alcohol abuse, uncomplicated; F11.20 Opioid dependence, uncomplicated; R19.7 Diarrhea, unspecified; G62.9 Polyneuropathy, unspecified; K59.03 Drug induced constipation; T40.2X5A Adverse effect of other opioids, initial encounter; Y92.9 Unspecified place or not applicable; I34.0 Nonrheumatic mitral (valve) insufficiency; E03.9 Hypothyroidism, unspecified; E86.0 Dehydration; R00.0 Tachycardia, unspecified; E87.6 Hypokalemia; E78.5 Hyperlipidemia, unspecified; F41.9 Anxiety disorder, unspecified; S80.11XA Contusion of right lower leg, initial encounter; X58.XXXA Exposure to other specified factors, initial encounter; Z90.49 Acquired absence of other specified parts of digestive tract; Z79.890 Hormone replacement therapy; Z79.51 Long term (current) use of inhaled steroids; Z11.52 Encounter for screening for COVID-19; Z60.2 Problems related to living alone; Z79.60 Long term (current) use of unspecified immunomodulators and immunosuppressants
CPT/HCPCS: 74022; 80048; 80053; 83935; 84300; 85025; 85027; 87502; 87811; 93005; 94640; 96360; 97116; 97163; 97167; 97530; 99285; G0378

== ENCOUNTER 2024-10-06 15:46 | Inpatient (IN) | payer MEDICARE, OTHER, SELFPAY ==
[2024-10-06 12:51] VITALS: BP 96/61
[2024-10-06 12:56] VITALS: BP 96/61
--- NOTE | 2024-10-06 13:02 | ED.GENMED ---
History of Present Illness
General
Chief Complaint: Change in Mental Status
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
Exam Limitations: altered mental status
Time Seen by Provider: 10/06/24 12:59
Nursing documentation reviewed up to this point in time: agreed with
History of Present Illness
History of Present Illness:
74 yo male w h/o COPD, CHF, hypothyroid, lung cancer that he states he is free of, CAD, depression, GERD, HLD, HTN, polyneuropathy, chronic pain syndrome, alcohol abuse, presents from [facility]. He reportedly had left knee pain and
was sent to [place] rehab facility, he did not like it there so he was transferred to [facility] 3 days ago. He states he is here 'because I am confused.' But then goes on to say he heard all the staff saying he was confused but he does not
think he is confused.
He denies chest pain, SOB, abdominal pain. He does say that his knees bother him left greater than right. He denies N/V/D/C, denies dysuria
3:10 p.m. Sergey with pt friend Jennifer Obrien who states she went to the [place] today for a conference and 'as soon as they brought him in I knew something was wrong' as he was not acting himself, was confused.
Past History
Past History
ED Past Medical History: CAD, Cancer (Lung cancer), COPD, GERD, HTN, Hypercholesterolemia and Other (Alcohol abuse/tobacco abuse)
ED Past Surgical History: Other (hernia)
Social History
Tobacco: Smoker
Alcohol: Chronic alcoholic
Drug: None
Personal:
Living: with family
Employment: Retired
Family History
Family History: Other (Noncontributory)
Review of Systems
Review of Systems
Allergies reviewed?: Yes
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
All Other Systems: ROS reviewed and negative except as documented in HPI and ROS
Constitutional: Denies fever or fatigue
EENT: Denies sore throat
Respiratory: Denies trouble breathing
Cardiac: Denies chest pain
ABD/GI: Denies abdominal pain, nausea, vomiting or diarrhea
: Denies dysuria or difficulty voiding
Musculoskeletal: Reports no symptoms; Denies edema
Skin: Reports no symptoms
Neurological: Reports no symptoms
Phy Exam
Physical Exam
Physical Exam:
GENERAL: No acute distress. A&Ox2. Knows place and year. States 'Octorber 6th'
CONSTITUTIONAL: Afebrile.
EYES: clear, conjunctivae normal
ENMT: dry mucus membranes, Pharynx nl, edentulous
RESPIRATORY: Regular respirations, nonlabored, lungs clear. Pulse ox 87% RA, placed on 3L NC O2
CARDIOVASCULAR: Regular rate and rhythm, rate 110, no murmurs, no rubs.
GI: Soft, nontender, normal BS
MUSCULOSKELETAL: Moves with ease. Well perfused. No edema
SKIN: Warm, dry, pink
PSYCH: Normal mood and affect. Well kept, interactive and appropriate
NEUROLOGIC: Awake, alert and oriented x 2. No focal neurological deficits
Course
Orders/Labs/Results
Orders:
Orders
10/06/24 13:00
CR Chest - 2 Views Urgent
Comment:
Reason For Exam: hypoxemia
10/06/24 13:20
0.9% Sodium Chloride 1000 ml [Nss] 1,000 ml IV BOLUS
10/06/24 13:44
COVID-19 Antigen Urgent
Source: Nasal Swab
Complete Blood Count/With Diff Urgent
Comprehensive Metabolic Panel Urgent
NT-proBNP Urgent
Urinalysis Reflex To Culture Urgent
Date Specimen was Collected: 10/06/24
Time Specimen was Collected: 13:41
Influenza A+B Rapid Molecular Urgent
ALETHA Source: Nasal Swab
Specimen Description:
10/06/24 14:50
Cefepime HCl [Maxipime] 2,000 mg IV NOW STA
10/06/24 15:10
Admit/Transfer Patient As Directed
Co-Sign Provider:
Level of Care: Inpatient admission
Assign to:: Medical/Surgical
Physician / Group: yanique
Diagnosis: sepsis pneumonia
Reason for Hospitalization: sepsis pneumonia
Expected length of stay greater than two midnights?: Yes
ELOS- Estimated Length of Stay in days: 2
I certify the patient meets the requirements for IP care: Yes
Code Status As Directed
Resuscitation Status: Full Code
PRN Pain Medication Management As Directed
May give lesser potent ordered pain med per pt: Yes
preference::
Protocol:: Medication orders for pain may be administered in a
manner that supports deferring to patient preference
when the pt is:
- Requesting an ordered lesser potent pain medication.
Least to most potent pain medications are defined
as: acetaminophen < NSAID < tramadol < opioids
(morphine, oxycodone, hydromorphone).
- Requesting a lesser dose of the same medication IF
ORDERED.
- Requesting a less intrusive route of administration
if both routes are prescribed by the provider (PO <
IV).
Abnormal Lab Results
10/06/24
13:44
WBC 13.3 H 10^3/uL
(4.8-10.8)
RBC 3.19 L 10^6/uL
(4.70-6.10)
Hgb 9.1 L g/dL
(13.0-18.0)
Hct 28.9 L %
(39.0-52.0)
MCHC 31.5 L g/dL
(33.0-37.0)
RDW 15.3 H %
(11.5-14.5)
Plt Count 404 H 10^3/uL
(130-400)
Abs Immat Gran (auto) 0.4 H 10^3/uL
(0-0.05)
Absolute Neuts (auto) 10.1 H 10^3/uL
(1.4-6.5)
Absolute Monos (auto) 1.0 H 10^3/uL
(0.1-0.6)
Immature Gran % 2.6 H %
(0-0.5)
Neutrophils % 75.5 H %
(42.2-75.2)
Lymphocytes % 12.3 L %
(20.5-51.1)
Sodium 131 L mmol/L
(135-145)
Chloride 96 L mmol/L
(98-107)
Carbon Dioxide 32 H mmol/L
(22-30)
BUN 21 H mg/dl
(9-20)
Alkaline Phosphatase 140 H U/L
(38-126)
Total Protein 5.3 L g/dl
(6.3-8.2)
Albumin 2.8 L g/dl
(3.5-5.0)
10/06/24 13:44
10/06/24 13:44
Vital Signs
Initial and Last Documented VS:
Initial Vital Signs
BP
96/61
10/06/24 12:51
Last Documented Vital Signs
Temp Pulse Resp BP Pulse Ox
98.4 F 103 16 120/63 92
10/06/24 12:56 10/06/24 15:24 10/06/24 15:24 10/06/24 15:24 10/06/24 15:15
MDM/Problems Addressed
Differential Diagnosis Includes:
Dehydration, UTI
MDM/Problems Addressed:
74 yo male w h/o COPD, CHF, hypothyroid, lung cancer that he states he is free of, CAD, depression, GERD, HLD, HTN, polyneuropathy, chronic pain syndrome, alcohol abuse, presents from [facility]. He reportedly had left knee pain and
was sent to [place] rehab facility, he did not like it there so he was transferred to [facility] 3 days ago. He states he is here 'because I am confused.' But then goes on to say he heard all the staff saying he was confused but he does not
think he is confused.
He denies chest pain, SOB, abdominal pain. He does say that his knees bother him left greater than right. He denies N/V/D/C, denies dysuria
Afebrile, tachycardic, conversation seems appropriate, oriented x 2
Lungs CTA w pulse ox 88% on RA, placed on 2L NC O2
2:10 PM:
CBC: WBC 13.3 hemoglobin 9.1
CMP with no clinically significant abnormality
UA negative
Negative COVID
Negative flu
2:45 p.m.
Chest x-ray: Radiology report read: IMPRESSION:
1. Hazy opacity within the right mid and lower lung zones, which may represent subsegmental atelectasis or pneumonia.
2. No associated pleural effusion.
Plan: Admit acute on chronic respiratory failure with R lower and middle lung pneumonia, change in mental state
Pulse ox 94% on 2L NC
Hospitalist notified of admission.
*Critical Care Note
Total Time (30-74mins, 75-104mins- exclusive of procedures): Not Applicable
ED Attending Note
-
Portions of this chart may have been created with voice recognition software.� Occasional wrong word or��sound alike� substitutions may have occurred due to the inherent limitations of voice recognition software.
Discharge Plan
Departure
Patient Disposition: Admit
Date of Disposition: 10/06/24
Time of Disposition: 14:53
Admit to: Med/Surg
Presentation/result/management discussed w/ accepting MD/DO: Hospitalist
Condition: Fair
Covid-19: Negative COVID-19
Discharge Problem:
Right middle lobe pneumonia, Right lower lobe pneumonia, Acute on chronic hypoxic respiratory failure
Prescriptions:
No Action
pantoprazole [Protonix] 40 mg Tablet,Delayed Release (Dr/Ec)
40 mg PO DAILY
hydrocortisone 10 mg Tablet
10 mg PO DAILY
Anoro Ellipta 62.5-25 mcg/actuation Blister With Device
1 inh INHALATION R DAILY
acetaminophen [Tylenol Extra Strength] 500 mg Tablet
1,000 mg PO Q6HPRN PRN (Reason: mild pain)
cholecalciferol (vitamin D3) [Vitamin D3] 25 mcg (1,000 unit) Tablet
25 mcg PO DAILY
atorvastatin 40 mg Tablet
40 mg PO HS
cyanocobalamin (vitamin B-12) 1,000 mcg Tablet
1,000 mcg PO DAILY
amitriptyline 10 mg Tablet
20 mg PO HS
albuterol sulfate 90 mcg/actuation Hfa Aerosol Inhaler
2 puff INHALATION R Q4HPRN PRN (Reason: sob)
carvedilol [Coreg] 3.125 mg Tablet
3.125 mg PO BID
polyethylene glycol 3350 17 gram powder in packet
17 g PO DAILYPRN PRN (Reason: constipaition)
Rx Instructions:
stop if 2 or more bowel movement per day
famotidine 20 mg tablet
20 mg PO BID
levothyroxine 150 mcg tablet
150 mcg PO DAILY@0600
gabapentin 300 mg capsule
600 mg PO TID
Refresh Classic (PF) 1.4-0.6 % dropperette
1 drops BOTH EYES QID
furosemide [Lasix] 40 mg tablet
20 mg PO DAILY Qty: 0 0RF
Rx Instructions:
Hold for SBP<105
hydromorphone 2 mg Tablet
2 mg PO Q4HPRN PRN (Reason: moderate-severe pain) 3 Days Qty: 18 0RF
loperamide 2 mg Tablet
2 mg PO Q4HPRN PRN (Reason: diarrhea)
thiamine HCl (vitamin B1) 100 mg Tablet
100 mg PO DAILY
magnesium hydroxide [Milk of Magnesia] 400 mg/5 mL Suspension
2,400 mg PO [id number] PRN (Reason: constipation)
magnesium oxide 250 mg magnesium Tablet
500 mg PO DIRECTED
Rx Instructions:
take 400mg daily until 10/03/24 hen 500 q48h until 10/06/24 then 500mg bid
potassium chloride 20 mEq Tablet Extended Release
40 meq PO DAILY
fluticasone furoate 100 mcg/actuation Blister With Device
1 inh INHALATION R DAILY
magnesium oxide 400 mg magnesium Tablet
400 mg PO DAILY
Referrals:
Daryl Gibson MD [Family Provider] -
Interventions
Interventions:
*Risk Screen - Suicide Last Done: 10/06/24 15:31
*General Assessment Last Done: 10/06/24 15:31
*Neglect/Abuse Screening Last Done: 10/06/24 15:31
ED- Neurological Assessment Last Done: 10/06/24 15:30
ED Swallowing Screen Last Done: 10/06/24 15:30
Discharge Date and Time
Print Language: MALDIVIAN
[2024-10-06 13:06] VITALS: BMI 24.1
[2024-10-06] MEDS: NSS 1000 IV ×2 (13:59→18:21)
[2024-10-06 14:01] LABS: % Basophils 0.5 % (0-2); % Eosinophils 1.9 % (0-6); % Immature Granulocytes 2.6 % (0-0.5); % Lymphocytes 12.3 % (20.5-51.1); % Monocytes 7.2 % (1.7-9.3); % Neutrophils 75.5 % (42.2-75.2); Absolute Basophils 0.1 10^3/uL (0-0.2); Absolute Eosinophils 0.3 10^3/uL (0-0.7); Absolute Immature Granulocytes 0.4 10^3/uL (0-0.05); Absolute Lymphocytes 1.6 10^3/uL (1.2-3.4); Absolute Neutrophils 10.1 10^3/uL (1.4-6.5); Hematocrit 28.9 % (39.0-52.0); Hemoglobin 9.1 g/dL (13.0-18.0); Mean Corp Hgb Conc. 31.5 g/dL (33.0-37.0); Mean Corpuscular Hgb 28.5 pg (27.0-31.0); Mean Corpuscular Volume 90.6 fL (80.0-94.0); Mean Platelet Volume 9.1 fL (7.4-10.4); Nucleated Red Blood Cells % 0 % (-); Platelet Count 404 10^3/uL (130-400); Red Blood Cell Count 3.19 10^6/uL (4.70-6.10); Red Cell Dist. Width 15.3 % (11.5-14.5); White Blood Cell Count 13.3 10^3/uL (4.8-10.8)
[2024-10-06 14:07] LABS: Urine Albumin Negative (Neg - Trace); Urine Bilirubin Negative (Negative); Urine Character Clear (Clear); Urine Color Yellow; Urine Glucose Negative (Negative); Urine Ketone Negative (Negative); Urine Leukocyte Negative (Negative); Urine Nitrite Negative (Negative); Urine Occult Blood Negative (Negative); Urine Urobilinogen Negative (Neg - 1+)
[2024-10-06 14:10] LABS: COVID-19 Antigen Negative (Negative)
[2024-10-06 14:13] LABS: ALT (SGPT) 10 U/L (0-50); AST (SGOT) 21 U/L (17-59); Albumin 2.8 g/dl (3.5-5.0); Alkaline Phosphatase 140 U/L (38-126); Blood Urea Nitrogen 21 mg/dl (9-20); Calcium 8.6 mg/dl (8.4-10.2); Carbon Dioxide 32 mmol/L (22-30); Chloride 96 mmol/L (98-107); Estimated Creatinine Clearance 59 ml/min; Glucose 98 mg/dl (70-99); Sodium 131 mmol/L (135-145); Total Bilirubin 0.9 mg/dl (0.2-1.3); Total Protein 5.3 g/dl (6.3-8.2); eGFR > 60.00
[2024-10-06 14:22] LABS: NT-proBNP 740 pg/ml
[2024-10-06 15:00] VITALS: BP 92/54
--- NOTE | 2024-10-06 15:13 | HPS.HSE ---
Addendum entered and electronically signed by Manuel Lozano MD 10/06/24 15:21:
Missing information. See other H&P.
Missing information. See other H&P.
Missing information. See other H&P.
Missing information. See other H&P.
Missing information. See other H&P.
Original Note:
Family Physician
-
Family Physician: Daryl Gibson
Chief Complaint
-
confusion
History of Present Illness
74-year-old male past medical history of lung cancer, COPD, CAD, CHF, hypothyroidism, hypercholesterolemia, alcohol use disorder, depression, polyneuropathy, chronic pain presenting from [facility] for change in mental status. He
reportedly had left knee pain and was sent to [place] rehab facility and did not like it there so he was transferred to [facility] 3 days ago.
He states he is in the hospital because he is confused but denies confusion currently. Denies chest pain, cough, sore throat, shortness of breath, abdominal pain. Denies nausea vomiting or diarrhea. Denies fevers or chills, urinary symptoms.
Complaining of chronic left hip pain left shoulder pain. Denies any recent injuries.
Denies smoking or alcohol use.
Medical History
Past Medical History
Past Medical History: Reports Other (lung cancer, COPD, CAD, CHF, hypothyroidism, hypercholesterolemia, alcohol use disorder, depression, polyneuropathy, chronic pain)
Past Surgical History: Reports None
Social History
Tobacco: Non-smoker
Alcohol: None
Drug: None
Family History
Family History: Not pertinent
Allergies / Home Medications
Allergies reflects when Allergies were last updated in [employer].
Home Medications with original date entered in [employer]
Allergy/Medication List:
Allergies
Allergy/AdvReac Type Severity Reaction Status Date / Time
No Known Allergies Allergy Verified 09/03/24 10:50
Home Medications
hydrocortisone 10 mg tablet 10 mg PO DAILY Anti-Inflammatory 11/20/23
pantoprazole 40 mg tablet,delayed release (Protonix) 40 mg PO DAILY Gastrointestinal Issue 11/20/23
umeclidinium 62.5 mcg-vilanterol 25 mcg/actuation powdr for inhalation (Anoro Ellipta) 1 inh inhalation R DAILY Lung/Breathing Issues 11/20/23
acetaminophen 500 mg tablet (Tylenol Extra Strength) 1,000 mg PO Q6HPRN PRN mild pain 03/08/24
cholecalciferol (vitamin D3) 25 mcg (1,000 unit) tablet (Vitamin D3) 25 mcg PO DAILY Supplement 03/08/24
fluticasone furoate 100 mcg/actuation blister powder for inhalation (Arnuity Ellipta) 1 inh inhalation R QPM Lung/Breathing Issues 03/08/24
albuterol sulfate 90 mcg/actuation aerosol inhaler 2 puff inhalation R Q4HPRN PRN sob 08/10/24
amitriptyline 10 mg tablet 20 mg PO HS Mental Health/Anxiety 08/10/24
atorvastatin 40 mg tablet 40 mg PO HS High Cholesterol 08/10/24
cyanocobalamin (vitamin B-12) 1,000 mcg tablet 1,000 mcg PO DAILY Supplement 08/10/24
carvedilol 3.125 mg tablet (Coreg) 3.125 mg PO BID Blood Pressure 08/17/24
famotidine 20 mg tablet 20 mg PO BID Gastrointestinal Issue 09/14/24
gabapentin 300 mg capsule 600 mg PO TID Pain 09/14/24
levothyroxine 150 mcg tablet 150 mcg PO DAILY@0600 Thyroid 09/14/24
polyethylene glycol 3350 17 gram oral powder packet 17 g PO DAILYPRN PRN constipaition 09/14/24
polyvinyl alcohol-povidone (PF) 1.4 %-0.6 % eye drops in a dropperette (Refresh Classic (PF)) 1 drops BOTH EYES QID Eye Condition 09/14/24
furosemide 40 mg tablet (Lasix) 20 mg (1/2 x 40 mg) PO DAILY Fluid Retention/Swelling #0 tabs 09/19/24
hydromorphone 2 mg tablet 2 mg PO Q4HPRN PRN moderate-severe pain 3 days #18 tabs 09/19/24
fluticasone furoate 100 mcg/actuation blister powder for inhalation 1 inh inhalation R DAILY 10/06/24
loperamide 2 mg tablet 2 mg PO Q4HPRN PRN diarrhea 10/06/24
magnesium hydroxide 400 mg/5 mL oral suspension (Milk of Magnesia) 2,400 mg PO [id number] PRN constipation 10/06/24
magnesium oxide 400 mg PO DAILY 10/06/24
magnesium oxide 500 mg PO DIRECTED 10/06/24
potassium chloride 20 mEq tablet,extended release 40 meq PO DAILY 10/06/24
thiamine HCl (vitamin B1) 100 mg tablet 100 mg PO DAILY 10/06/24
Review of Systems
-
History Source: Patient
A 12 point ROS was completed and negative except as noted: Yes
Constitutional: Reports No Symptoms
EENT: Reports No Symptoms
Respiratory: Reports No Symptoms
Cardiac: Reports No Symptoms
Abdomen/GI: Reports No Symptoms
: Reports No Symptoms
Musculoskeletal: Reports No Symptoms
Skin: Reports No Symptoms
Neurological: Reports No Symptoms
Endocrine: Reports No Symptoms
Hematologic/Lymphatic: Reports No Symptoms
Psych: Reports No Symptoms
Physical Exam
Vital Signs
Vital Signs
Temp Pulse Resp BP Pulse Ox
98.4 F 112 16 96/61 84
10/06/24 12:56 10/06/24 12:56 10/06/24 13:01 10/06/24 12:56 10/06/24 12:56
Physical Exam
General: Well Developed, Well Nourished and No Apparent Distress
HEENT: NormoCephalic, Moist mucous membranes and Atraumatic
Respiratory: Clear
Cardiac: S1/S2 and Regular Rhythm; No Murmur or Rub
GI: Soft, Non Tender, Non Distended and Normal Bowel Sounds; No Organomegaly
Rectal: Deferred by Provider
Musculoskeletal: No Clubbing, No Cyanosis and No Edema
Skin: No Rash
Neuro: Nonfocal/grossly intact
Laboratory Results
-
10/06/24 13:44
10/06/24 13:44
Laboratory Results
Total Bilirubin 0.9 mg/dl (0.2-1.3) 10/06/24 13:44
AST 21 U/L (17-59) 10/06/24 13:44
ALT 10 U/L (0-50) 10/06/24 13:44
Alkaline Phosphatase 140 U/L (38-126) H 10/06/24 13:44
Data Reviewed
-
Lab Data: Labs Reviewed by me
Old Records: Reviewed
Impression/Plan
-
IMPRESSION:
PLAN:
# Sepsis (leukocytosis, tachycardia,)/metabolic encephalopathy secondary to right mid/lower lobe pneumonia
-Leukocytosis
-Chest x-ray shows hazy opacity within the right mid and lower lung zones which may represent subsegmental atelectasis versus pneumonia
-Influenza and COVID-negative
-IV fluids
-Ceftriaxone/doxycycline
Lung cancer
Chronic normocytic anemia
-Hemoglobin stable 9.1
COPD
-Continue Anoro Ellipta
CAD
-Continue Coreg
Chronic HFpEF
Severe eccentric mitral regurgitation
Hypercholesterolemia
-Continue statin
Alcohol use disorder
Depression
-Continue amitriptyline
Polyneuropathy
-Continue gabapentin
Chronic pain
-Continue Dilaudid
Hypothyroidism
-Continue levothyroxine
Full code
DVT prophylaxis�heparin
Regular diet
--- NOTE | 2024-10-06 15:20 | HPS.HSE ---
Family Physician
-
Family Physician: Daryl Gibson
Chief Complaint
-
confusion
History of Present Illness
74-year-old male past medical history of lung cancer, COPD, CAD, CHF, hypothyroidism, hypercholesterolemia, alcohol use disorder, depression, polyneuropathy, chronic pain, iatrogenic adrenal insufficiency presenting from [facility]
for change in mental status. He reportedly had left knee pain and was sent to [place] [facility] facility and did not like it there so he was transferred to [facility] 3 days ago.
He states he is in the hospital because he is confused but denies confusion currently. Denies chest pain, cough, sore throat, shortness of breath, abdominal pain. Denies nausea vomiting or diarrhea. Denies fevers or chills, urinary symptoms.
Complaining of chronic left hip pain left shoulder pain. Denies any recent injuries.
Denies smoking or alcohol use.
Medical History
Past Medical History
Past Medical History: Reports Other (lung cancer, COPD, CAD, CHF, hypothyroidism, hypercholesterolemia, alcohol use disorder, depression, polyneuropathy, chronic pain, iatrogenic adrenal insufficiency)
Past Surgical History: Reports None
Social History
Tobacco: Non-smoker
Alcohol: None
Drug: None
Family History
Family History: Not pertinent
Allergies / Home Medications
Allergies reflects when Allergies were last updated in [employer].
Home Medications with original date entered in [employer]
Allergy/Medication List:
Allergies
Allergy/AdvReac Type Severity Reaction Status Date / Time
No Known Allergies Allergy Verified 09/03/24 10:50
Home Medications
hydrocortisone 10 mg tablet 10 mg PO DAILY Anti-Inflammatory 11/20/23
pantoprazole 40 mg tablet,delayed release (Protonix) 40 mg PO DAILY Gastrointestinal Issue 11/20/23
umeclidinium 62.5 mcg-vilanterol 25 mcg/actuation powdr for inhalation (Anoro Ellipta) 1 inh inhalation R DAILY Lung/Breathing Issues 11/20/23
acetaminophen 500 mg tablet (Tylenol Extra Strength) 1,000 mg PO Q6HPRN PRN mild pain 03/08/24
cholecalciferol (vitamin D3) 25 mcg (1,000 unit) tablet (Vitamin D3) 25 mcg PO DAILY Supplement 03/08/24
fluticasone furoate 100 mcg/actuation blister powder for inhalation (Arnuity Ellipta) 1 inh inhalation R QPM Lung/Breathing Issues 03/08/24
albuterol sulfate 90 mcg/actuation aerosol inhaler 2 puff inhalation R Q4HPRN PRN sob 08/10/24
amitriptyline 10 mg tablet 20 mg PO HS Mental Health/Anxiety 08/10/24
atorvastatin 40 mg tablet 40 mg PO HS High Cholesterol 08/10/24
cyanocobalamin (vitamin B-12) 1,000 mcg tablet 1,000 mcg PO DAILY Supplement 08/10/24
carvedilol 3.125 mg tablet (Coreg) 3.125 mg PO BID Blood Pressure 08/17/24
famotidine 20 mg tablet 20 mg PO BID Gastrointestinal Issue 09/14/24
gabapentin 300 mg capsule 600 mg PO TID Pain 09/14/24
levothyroxine 150 mcg tablet 150 mcg PO DAILY@0600 Thyroid 09/14/24
polyethylene glycol 3350 17 gram oral powder packet 17 g PO DAILYPRN PRN constipaition 09/14/24
polyvinyl alcohol-povidone (PF) 1.4 %-0.6 % eye drops in a dropperette (Refresh Classic (PF)) 1 drops BOTH EYES QID Eye Condition 09/14/24
furosemide 40 mg tablet (Lasix) 20 mg (1/2 x 40 mg) PO DAILY Fluid Retention/Swelling #0 tabs 09/19/24
hydromorphone 2 mg tablet 2 mg PO Q4HPRN PRN moderate-severe pain 3 days #18 tabs 09/19/24
fluticasone furoate 100 mcg/actuation blister powder for inhalation 1 inh inhalation R DAILY 10/06/24
loperamide 2 mg tablet 2 mg PO Q4HPRN PRN diarrhea 10/06/24
magnesium hydroxide 400 mg/5 mL oral suspension (Milk of Magnesia) 2,400 mg PO [id number] PRN constipation 10/06/24
magnesium oxide 400 mg PO DAILY 10/06/24
magnesium oxide 500 mg PO DIRECTED 10/06/24
potassium chloride 20 mEq tablet,extended release 40 meq PO DAILY 10/06/24
thiamine HCl (vitamin B1) 100 mg tablet 100 mg PO DAILY 10/06/24
Review of Systems
-
History Source: Patient
A 12 point ROS was completed and negative except as noted: Yes
Constitutional: Reports No Symptoms
EENT: Reports No Symptoms
Respiratory: Reports No Symptoms
Cardiac: Reports No Symptoms
Abdomen/GI: Reports No Symptoms
: Reports No Symptoms
Musculoskeletal: Reports No Symptoms
Skin: Reports No Symptoms
Neurological: Reports No Symptoms
Endocrine: Reports No Symptoms
Hematologic/Lymphatic: Reports No Symptoms
Psych: Reports No Symptoms
Physical Exam
Vital Signs
Vital Signs
Temp Pulse Resp BP Pulse Ox
98.4 F 112 16 96/61 84
10/06/24 12:56 10/06/24 12:56 10/06/24 13:01 10/06/24 12:56 10/06/24 12:56
Physical Exam
General: Well Developed, Well Nourished and No Apparent Distress
HEENT: NormoCephalic, Moist mucous membranes and Atraumatic
Respiratory: Clear
Cardiac: S1/S2 and Regular Rhythm; No Murmur or Rub
GI: Soft, Non Tender, Non Distended and Normal Bowel Sounds; No Organomegaly
Rectal: Deferred by Provider
Musculoskeletal: No Clubbing, No Cyanosis and No Edema
Skin: No Rash
Neuro: Nonfocal/grossly intact
Laboratory Results
-
10/06/24 13:44
10/06/24 13:44
Laboratory Results
Total Bilirubin 0.9 mg/dl (0.2-1.3) 10/06/24 13:44
AST 21 U/L (17-59) 10/06/24 13:44
ALT 10 U/L (0-50) 10/06/24 13:44
Alkaline Phosphatase 140 U/L (38-126) H 10/06/24 13:44
Data Reviewed
-
Lab Data: Labs Reviewed by me
Old Records: Reviewed
Impression/Plan
-
IMPRESSION:
PLAN:
# Sepsis (leukocytosis, tachycardia,)/metabolic encephalopathy secondary to right mid/lower lobe pneumonia
-Leukocytosis
-Chest x-ray shows hazy opacity within the right mid and lower lung zones which may represent subsegmental atelectasis versus pneumonia
-Influenza and COVID-negative
-IV fluids
-Ceftriaxone/doxycycline
Lung cancer/metastatic melanoma
-Not on treatment currently
Chronic normocytic anemia
-Hemoglobin stable 9.1
Iatrogenic adrenal insufficiency
-Increase hydrocortisone from 10 mg daily to 50 mg daily for now
Chronic functional diarrhea
-No diarrhea currently
COPD
-Continue Anoro Ellipta
CAD
-Continue Coreg
Chronic HFmrEF
-hold lasix
Severe eccentric mitral regurgitation
Hypercholesterolemia
-Continue statin
Alcohol use disorder
Depression
-Continue amitriptyline
Polyneuropathy
-Continue gabapentin
Chronic pain
-Continue Dilaudid
Chronic headaches/migraines
Hypothyroidism
-Continue levothyroxine
Full code
DVT prophylaxis�heparin
Regular diet
[2024-10-06 15:24] VITALS: BP 120/63
[2024-10-06] MEDS: MAXIPIME 2000 MG IV (16:23)
[2024-10-06 16:56] VITALS: BP 122/94
--- NOTE | 2024-10-06 17:00 | PTCARENOTE ---
patient arrived from ER via stretcher, assist x1 to bed. gait steady. bed alarm applied due to recent confused but at present aaox3, pleasant and no forgetfulness, vss, oriened to room and use of call ha, will continue to monitor.
[2024-10-06 17:32] VITALS: BMI 24.1
[2024-10-06] MEDS: VIBRAMYCIN 260 MG IV (18:20)
[2024-10-06] MEDS: NEURONTIN 600 MG PO ×2 (18:24→22:45)
[2024-10-06] MEDS: REFRESH EYE DROPS (PF) 1 DROPS BOTH EYES ×2 (18:24→22:27)
[2024-10-06] MEDS: DILAUDID 2 MG PO ×2 (18:39→22:41)
[2024-10-06] MEDS: FLOVENT 44 MCG INHALER 2 PUFF INH (21:07)
[2024-10-06] MEDS: PEPCID 20 MG PO (22:22)
[2024-10-06] MEDS: HEPARIN 5000 UNITS SC (22:23)
[2024-10-06] MEDS: ELAVIL 20 MG PO (22:26)
[2024-10-06] MEDS: LIPITOR 40 MG PO (22:27)
[2024-10-06] MEDS: ROCEPHIN 1000 MG IV (22:30)
[2024-10-06] MEDS: STERILE WATER FOR INJECTION 10 ML IV (22:36)
[2024-10-06 23:00] VITALS: BP 111/68
[2024-10-07] MEDS: NSS 1000 IV (04:11)
[2024-10-07] MEDS: SYNTHROID 150 MCG PO (06:04)
[2024-10-07] MEDS: VIBRAMYCIN 260 MG IV ×2 (06:05→17:42)
[2024-10-07] MEDS: DILAUDID 2 MG PO ×2 (06:20→19:54)
[2024-10-07 07:18] VITALS: BP 135/78
[2024-10-07] MEDS: SPIRIVA RESPIMAT 2.5 MCG 2 PUFF INH (07:18)
[2024-10-07] MEDS: FLOVENT 44 MCG INHALER 2 PUFF INH ×2 (07:18→20:00)
[2024-10-07] MEDS: STRIVERDI RESPIMAT 2 PUFF INH (07:19)
[2024-10-07 07:51] LABS: % Basophils 0.4 % (0-2); % Eosinophils 5.6 % (0-6); % Immature Granulocytes 2.1 % (0-0.5); % Lymphocytes 21.4 % (20.5-51.1); % Monocytes 11.7 % (1.7-9.3); % Neutrophils 58.8 % (42.2-75.2); Absolute Eosinophils 0.5 10^3/uL (0-0.7); Absolute Immature Granulocytes 0.2 10^3/uL (0-0.05); Absolute Lymphocytes 1.9 10^3/uL (1.2-3.4); Absolute Monocytes 1.1 10^3/uL (0.1-0.6); Absolute Neutrophils 5.3 10^3/uL (1.4-6.5); Hematocrit 24.1 % (39.0-52.0); Hemoglobin 7.8 g/dL (13.0-18.0); Mean Corp Hgb Conc. 32.4 g/dL (33.0-37.0); Mean Corpuscular Hgb 28.7 pg (27.0-31.0); Mean Corpuscular Volume 88.6 fL (80.0-94.0); Mean Platelet Volume 9.4 fL (7.4-10.4); Nucleated Red Blood Cells % 0 % (-); Platelet Count 388 10^3/uL (130-400); Red Blood Cell Count 2.72 10^6/uL (4.70-6.10); Red Cell Dist. Width 15.1 % (11.5-14.5)
[2024-10-07 07:56] LABS: ALT (SGPT) < 10 U/L (0-50); AST (SGOT) 17 U/L (17-59); Albumin 2.6 g/dl (3.5-5.0); Alkaline Phosphatase 107 U/L (38-126); Blood Urea Nitrogen 15 mg/dl (9-20); Calcium 8.5 mg/dl (8.4-10.2); Carbon Dioxide 26 mmol/L (22-30); Chloride 100 mmol/L (98-107); Estimated Creatinine Clearance 81 ml/min; Glucose 88 mg/dl (70-99); Sodium 134 mmol/L (135-145); Total Bilirubin 0.8 mg/dl (0.2-1.3); eGFR > 60.00
[2024-10-07] MEDS: KCL 40 MEQ PO (08:55)
[2024-10-07] MEDS: PEPCID 20 MG PO ×2 (08:55→19:53)
[2024-10-07] MEDS: HYDROCORTONE/CORTEF 50 MG PO (08:55)
[2024-10-07] MEDS: NEURONTIN 600 MG PO ×3 (08:55→21:25)
[2024-10-07] MEDS: MAGNESIUM OXIDE 500 MG PO ×2 (08:56→19:53)
[2024-10-07] MEDS: HEPARIN 5000 UNITS SC ×2 (08:56→19:53)
[2024-10-07] MEDS: VITAMIN B1 100 MG PO (08:56)
[2024-10-07] MEDS: REFRESH EYE DROPS (PF) 1 DROPS BOTH EYES ×3 (08:56→21:26)
[2024-10-07] MEDS: PROTONIX 40 MG PO (08:56)
--- NOTE | 2024-10-07 10:10 | W.PN.HOSP.TC ---
Today's Communication/Plan
-
see PN
one dose of lasix since had hydration and needs wean off O2 now - suspect mild overload
Assessment / Plan
Assessment / Plan
74yo M with PMHx of lung CA followed in [facility], adrenal insufficiency, CAD, CHF, hypothyroidism, HLD, alcohol use d/o, depression, polyneuropathy, chronic pain - opioid dependent sent from [facility] with confusion 2/2 RLL pneumonia with
unspecified organism
A/P:
#acute hypoxic respiratory insufficiency 2/2 RLL pneumonia with unspecified organism with concern for sepsis on admission 2/2 acute metabolic encephalopathy
AMS resolved
Rocephin/Doxy
Check strep pneumonia and legionella urinary Ag
Head CT
wean off O2
#Hypothyroidism
check TSH
cont Synthroid
#Anemia
anemia w/u
check FOBT
#Hx of lung CA
followed in [facility]
previously patient reported that he was in remission
continue to follow with existent specialists
#Adrenal insufficiency
decrease Hydrocortisone to home dose
#Neuropathy
#B12 deficiency
#HLD
#COPD not in exacerbation
cont home meds
DVT ppx hep
Full code
I have spent at least 59min reviewing chart, test results, communication with consultants and direct patient care
Anticipated Discharge: 24 - 48 hours
Subjective/Interval History
-
Date of Service: October 07, 2024
Objective Data
-
Labs:
Laboratory Results
10/07/24
07:21
WBC 9.0
Hgb 7.8 L
Hct 24.1 L
Plt Count 388
Sodium 134 L
Potassium 4.0
Chloride 100
Carbon Dioxide 26
BUN 15
Creatinine 0.8
Glucose 88
Calcium 8.5
Total Bilirubin 0.8
AST 17
ALT < 10
Alkaline Phosphatase 107
Vital Signs:
Vital Signs
Temp Pulse Resp BP Pulse Ox
97.8 F 76 18 135/78 93
10/06/24 23:00 10/07/24 07:20 10/07/24 07:20 10/07/24 07:18 10/07/24 07:20
I&O
10/06/24 10/07/24 10/08/24
06:59 06:59 06:59
Intake Total 260 / 260
Output Total 1485 / 1485
Balance -1225 / -1225
[2024-10-07] MEDS: LASIX 40 MG IV (10:44)
[2024-10-07] MEDS: IMODIUM 2 MG PO (10:44)
[2024-10-07 14:18] VITALS: BP 110/71; BP 112/69; PULSE 99; O2SAT 97
[2024-10-07 15:12] VITALS: BP 99/59
[2024-10-07 16:54] VITALS: BP 109/66
[2024-10-07] MEDS: REFRESH EYE DROPS (PF) BOTH EYES (17:42)
[2024-10-07] MEDS: ELAVIL 20 MG PO (21:26)
[2024-10-07] MEDS: LIPITOR 40 MG PO (21:26)
[2024-10-07] MEDS: STERILE WATER FOR INJECTION 10 ML IV (21:27)
[2024-10-07] MEDS: ROCEPHIN 1000 MG IV (21:27)
[2024-10-07] MEDS: TYLENOL 650 MG PO (21:33)
[2024-10-07 23:00] VITALS: BP 103/63
[2024-10-08] MEDS: VIBRAMYCIN 260 MG IV ×2 (05:24→17:07)
[2024-10-08] MEDS: SYNTHROID 75 MCG PO (05:24)
[2024-10-08] MEDS: SYNTHROID 100 MCG PO (05:30)
[2024-10-08 07:30] VITALS: BP 124/76
[2024-10-08] MEDS: FLOVENT 44 MCG INHALER 2 PUFF INH ×2 (07:30→20:42)
[2024-10-08] MEDS: SPIRIVA RESPIMAT 2.5 MCG 2 PUFF INH (07:30)
[2024-10-08] MEDS: STRIVERDI RESPIMAT 2 PUFF INH (07:30)
[2024-10-08 08:23] LABS: ALT (SGPT) 11 U/L (0-50); AST (SGOT) 20 U/L (17-59); Albumin 3.2 g/dl (3.5-5.0); Alkaline Phosphatase 132 U/L (38-126); Blood Urea Nitrogen 15 mg/dl (9-20); Calcium 8.7 mg/dl (8.4-10.2); Carbon Dioxide 27 mmol/L (22-30); Chloride 101 mmol/L (98-107); Estimated Creatinine Clearance 65 ml/min; Glucose 101 mg/dl (70-99); Iron 61 ug/dl (49-181); Potassium 3.8 mmol/L (3.5-5.1); Sodium 137 mmol/L (135-145); Total Bilirubin 0.4 mg/dl (0.2-1.3); eGFR > 60.00
[2024-10-08 08:32] LABS: Percent Saturation 26 % (20-50); Total Iron Binding Capacity 233 ug/dl (261-462)
[2024-10-08] MEDS: HEPARIN 5000 UNITS SC ×2 (08:33→21:12)
[2024-10-08] MEDS: HYDROCORTONE/CORTEF 10 MG PO (08:33)
[2024-10-08] MEDS: MAGNESIUM OXIDE 500 MG PO ×2 (08:33→21:12)
[2024-10-08] MEDS: PEPCID 20 MG PO ×2 (08:34→21:12)
[2024-10-08] MEDS: KCL 40 MEQ PO (08:34)
[2024-10-08] MEDS: VITAMIN B1 100 MG PO (08:34)
[2024-10-08] MEDS: REFRESH EYE DROPS (PF) 1 DROPS BOTH EYES ×4 (08:34→21:11)
[2024-10-08] MEDS: NEURONTIN 600 MG PO (08:34)
[2024-10-08] MEDS: PROTONIX 40 MG PO (08:35)
[2024-10-08 08:54] LABS: % Basophils 0.5 % (0-2); % Eosinophils 0.7 % (0-6); % Immature Granulocytes 1.8 % (0-0.5); % Monocytes 11.7 % (1.7-9.3); % Neutrophils 62.3 % (42.2-75.2); Absolute Basophils 0.1 10^3/uL (0-0.2); Absolute Eosinophils 0.1 10^3/uL (0-0.7); Absolute Immature Granulocytes 0.2 10^3/uL (0-0.05); Absolute Lymphocytes 2.2 10^3/uL (1.2-3.4); Absolute Monocytes 1.1 10^3/uL (0.1-0.6); Absolute Neutrophils 6.1 10^3/uL (1.4-6.5); Hematocrit 27.3 % (39.0-52.0); Hemoglobin 8.9 g/dL (13.0-18.0); Mean Corp Hgb Conc. 32.6 g/dL (33.0-37.0); Mean Corpuscular Hgb 28.6 pg (27.0-31.0); Mean Corpuscular Volume 87.8 fL (80.0-94.0); Mean Platelet Volume 9.2 fL (7.4-10.4); Nucleated Red Blood Cells % 0 % (-); Platelet Count 485 10^3/uL (130-400); Red Blood Cell Count 3.11 10^6/uL (4.70-6.10); Reticulocyte Count 2.7 % (0.4-2.8); White Blood Cell Count 9.8 10^3/uL (4.8-10.8)
[2024-10-08 09:21] LABS: Folate 7.6 ng/ml (2.76-20); Vitamin B12 940 pg/ml (239-931)
--- NOTE | 2024-10-08 10:02 | W.PN.HOSP.TC ---
Today's Communication/Plan
-
decrease Gabapentin
switch to oxy
increase synthroid
neuro consult
MRI with contrast RLE
Assessment / Plan
Assessment / Plan
74yo M with PMHx of lung CA followed in [facility], adrenal insufficiency, CAD, CHF, hypothyroidism, HLD, alcohol use d/o, depression, polyneuropathy, chronic pain - opioid dependent sent from [facility] with confusion 2/2 RLL pneumonia with
unspecified organism. Found Elevated TSH and also with HX of RLE complex hematoma - need to exclude it as a reason for infection-induced confusion. Cannot rule out iatrogenic causes also
A/P:
#acute hypoxic respiratory insufficiency 2/2 RLL pneumonia with unspecified organism with concern for sepsis on admission 2/2 acute metabolic encephalopathy
cannot exclude iatrogenic 2/2 Dilaudid - switch to Oxycodone, decrease rey
Hx of Alcohol abuse - progressive dementia? - Will get neurology eval
AMS resolved
Rocephin/Doxy
Check strep pneumonia and legionella urinary Ag
Head CT: age-related parenchymal atrophy, allergic sinusitis. No mass
wean off O2
#RLE swelling 2/2 Large tubular shaped complex hematoma
Ortho followed on previous admission - outpatient follow up advised as needed at that time vs contrast study - will order RLE MR with contrast to better delineate if infectious/neoplastic process
#Hypothyroidism
TSH >35, patient and POA denied missing medication
Increase Synthroid and watch TSH in 2-3 weeks
#Anemia
#Reactive thrombocytosis
no deficiencies identified. Anemia of chronic disease most likely
FOBT neg
#Hx of lung CA
followed in [facility]
previously patient reported that he was in remission
continue to follow with existent specialists
#Adrenal insufficiency
decrease Hydrocortisone to home dose
#Chronic back pain 2/2 chronic L1 compression Fx and multilevel DJD
Switch to Oxy
decrease gabapentin
#Neuropathy
#B12 deficiency
#HLD
#COPD not in exacerbation
cont home meds
DVT ppx hep
Full code
I have spent at least 59min reviewing chart, test results, communication with consultants, POA (friend) and direct patient care
Anticipated Discharge: > 48 hours
Subjective/Interval History
-
Date of Service: October 08, 2024
Objective Data
-
Labs:
Laboratory Results
10/08/24
07:41
WBC 9.8
Hgb 8.9 L
Hct 27.3 L
Plt Count 485 H D
Sodium 137
Potassium 3.8
Chloride 101
Carbon Dioxide 27
BUN 15
Creatinine 1.0
Glucose 101 H
Calcium 8.7
Total Bilirubin 0.4
AST 20
ALT 11
Alkaline Phosphatase 132 H
Vital Signs:
Vital Signs
Temp Pulse Resp BP Pulse Ox
97.3 F 71 18 124/76 96
10/08/24 07:30 10/08/24 07:35 10/08/24 07:35 10/08/24 07:30 10/08/24 07:35
I&O
10/07/24 10/08/24 10/09/24
06:59 06:59 06:59
Intake Total 260 / 260 660 / 660
Output Total 1485 / 1485 900 / 900
Balance -1225 / -1225 -240 / -240
--- NOTE | 2024-10-08 10:11 | CON.NEURO ---
Neuro Assessment/Plan
Assessment
Acute onset change in mental status due to toxic metabolic encephalopathy, currently resolved
Plan
Continue thiamine
No indication at this time that the patient require further neuroimaging
Agree with rehabilitation evaluations
Increase patient's usual amitriptyline due to recurrent headaches from 20 mg daily to 30 mg at bedtime
Provide rizatriptan for the patient's diffuse headache
Consider as outpatient replacement of gabapentin with the use of pregabalin for diffuse pain
Would reduce the patient's exposure to opioids if at all possible
Continue thiamine
Will follow as needed
Consultation
Order
Date of Consultation: 10/08/24
Requesting Provider: Hospitalist
Reason for Consult: change in mental status
Subjective/Objective
Subjective Data
Date of Service: October 08, 2024
R-H
Patient presented to this hospital's emergency department with new onset confusion. Patient was subsequently found to have pneumonia. As of 24 hours prior to this admission, the patient was described as having marked improvement in his cognition.
Patient currently reports no symptoms with regards to mental status. No known associated symptoms.
Patient also indicates he has been experiencing a headache for the past 2 days which has been treated with hydromorphone, with some benefit. Patient reports however that his headache is a throbbing sensation that has recurred today. Intensity of
the headache is described as moderate to severe. He is not experiencing photophobia.
Objective Data
Vital Signs
Temp Pulse Resp BP Pulse Ox
36.3 C 71 18 124/76 96
10/08/24 07:30 10/08/24 07:35 10/08/24 07:35 10/08/24 07:30 10/08/24 07:35
Lab Results
10/08/24 07:41
10/08/24 07:41
Sodium 137 mmol/L (135-145) 10/08/24 07:41
Potassium 3.8 mmol/L (3.5-5.1) 10/08/24 07:41
BUN 15 mg/dl (9-20) 10/08/24 07:41
Glucose 101 mg/dl (70-99) H 10/08/24 07:41
Calcium 8.7 mg/dl (8.4-10.2) 10/08/24 07:41
Wpg-V-Ozifotebgny Pept 740 pg/ml 10/06/24 13:44
Vitamin B12 940 pg/ml (239-931) H 10/08/24 07:41
Patient Allergies
No Known Allergies Allergy (Verified 10/06/24 19:35)
Review of Systems
-
History Source: Patient
All other systems: Reviewed and negative
Neuro: Headache; Negative Dizzy
Physical Exam
-
General: No Apparent Distress and Appears Stated Age
Eyes: Round OU, [place] Conjunctivae and No Ptosis
HEENT: Anicteric and Moist Mucous Membranes
Neck: Full Range of Motion
Respiratory: No Dyspnea
Cardiac: No JVD
GI: Non-distended
Skin: Unremarkable
Extremities: No Clubbing, No Cyanosis and No Edema
Psych: Negative Intact Judgement/Insight
Extended Neurological Exam
Mood & Affect: Negative Affect Unremarkable (irritable)
Attention Span & Concentration: Awake, Alert, Interactive and No Difficulty with 2 Step Request
Memory: Unremarkable
Tremor: Hand Tremor Absent and Head Tremor Absent
Speech: Quality Unremarkable and Quantity Unremarkable
Cranial Nerve II: Left Eye: Pupillary Size Unremarkable and Visual Amaro Grossly Intact
Cranial Nerve II: Right Eye: Pupillary Size Unremarkable and Visual Amaro Grossly Intact
Cranial Nerves III, IV, : Extraocular Movement: Grossly Intact
Cranial Nerve VII: Facial Symmetry: Normal Facial Symmetry
Cranial Nerve VIII: Hearing: Unremarkable Hearing to Normal Conversational Volume
Cranial Nerve XI: Shoulder Shrug: Unremarkable
Muscle Strength, Overall: Full Throughout
Muscle Bulk & Tone: Bulk Unremarkable and Tone Unremarkable
Pronator Drift: No Drift in Upper Extremities
Touch Sensation: Unremarkable
Coordination: Etcaxb-opyy-fdfzzv Testing Unremarkable
Gait & Station: Up from Seated Without Problem
Data Reviewed
-
CT Head: Report Reviewed
Labs: Report Reviewed
Reviewed with: Physician and Patient
Old Records: Summarized
Medications
-
Active Medications
Generic Name Dose Route Start Last Admin
Trade Name Freq PRN Reason Stop Dose Admin
Acetaminophen 650 mg 10/06/24 17:00 10/07/24 21:33
Acetaminophen 325 Mg Tablet PO 11/03/24 16:59 650 mg
Q4HPRN PRN Administration
mild pain/RIVER/temp> 100.4F
Albuterol 2 puff 10/06/24 17:00
Albuterol Hfa [90 Mcg/Dose] Inhaler INH
R Q4HPRN PRN
sob
Protocol
Amitriptyline HCl 20 mg 10/06/24 22:00 10/07/24 21:26
Amitriptyline 10 Mg Tablet PO 11/03/24 21:59 20 mg
HS GERDA Administration
Artificial Tears 1 drops 10/06/24 18:00 10/08/24 08:34
Artificial Tears Pf (Refresh) 10 Drop Droperette BOTH EYES 11/03/24 17:59 1 drops
QID GERDA Administration
Atorvastatin Calcium 40 mg 10/06/24 22:00 10/07/24 21:26
Atorvastatin (Lipitor) 40 Mg Tablet PO 11/03/24 21:59 40 mg
HS GERDA Administration
Ceftriaxone Sodium 1,000 mg 10/06/24 22:00 10/07/24 21:27
Ceftriaxone 1000 Mg / 10 Ml Vial IV 1,000 mg
Q24H GERDA Administration
Famotidine 20 mg 10/06/24 20:00 10/08/24 08:34
Famotidine 20 Mg Tablet PO 11/03/24 19:59 20 mg
BID GERDA Administration
Fluticasone Propionate 2 puff 10/06/24 20:00 10/08/24 07:30
Fluticasone 44 Mcg Inhaler INH 11/03/24 19:59 2 puff
R BID GERDA Administration
Protocol
Gabapentin 400 mg 10/08/24 10:09
Gabapentin 300 Mg Capsule PO 11/03/24 16:59
TID GERDA
Heparin Sodium 5,000 units 10/06/24 20:00 10/08/24 08:33
Heparin 5,000 Units/Ml 1 Ml Vial SC 11/03/24 19:59 5,000 units
Q12 GERDA Administration
Hydrocortisone 20 mg 10/08/24 09:50
Hydrocortisone 20 Mg Tablet PO 11/04/24 07:59
DAILY GERDA
Doxycycline Hyclate 100 mg/ 260 mls @ 260 mls/hr 10/06/24 18:00 10/08/24 05:24
Sodium Chloride IV 260 mls
Q12H GERDA Administration
Levothyroxine Sodium 75 mcg 10/07/24 12:44 10/08/24 05:24
Levothyroxine 75 Mcg Tablet PO 11/04/24 05:59 75 mcg
DAILY@0600 GERDA Administration
Levothyroxine Sodium 100 mcg 10/08/24 06:00 10/08/24 05:30
Levothyroxine 100 Mcg Tablet PO 11/05/24 05:59 100 mcg
DAILY @ 0600 GERDA Administration
Loperamide HCl 2 mg 10/06/24 17:13 10/07/24 10:44
Loperamide 2 Mg Capsule PO 11/03/24 17:12 2 mg
Q4HPRN PRN Administration
diarrhea
Magnesium Hydroxide 30 ml 10/06/24 17:00
Milk Of Magnesia 30 Ml Cup PO 11/03/24 16:59
[id number] PRN
constipation
Magnesium Oxide 500 mg 10/07/24 08:00 10/08/24 08:33
Magnesium Oxide 500 Mg Tablet PO 11/04/24 07:59 500 mg
BID GERDA Administration
Olodaterol 2 puff 10/07/24 08:00 10/08/24 07:30
Olodaterol (Striverdi Respimat) 2.5 Mcg Inhaler INH 11/04/24 07:59 2 puff
R DAILY GERDA Administration
Protocol
Oxycodone HCl 5 mg 10/08/24 10:01
Oxycodone 5 Mg Regular Release Tablet PO 10/22/24 10:00
Q4HPRN PRN
moderate-severe pain
Pantoprazole Sodium 40 mg 10/07/24 08:00 10/08/24 08:35
Pantoprazole 40 Mg Delayed Release Tablet PO 11/04/24 07:59 40 mg
DAILY GERDA Administration
Polyethylene Glycol 17 grams 10/06/24 17:00
Polyethylene Glycol Powder 17 Grams Packet PO 11/03/24 16:59
DAILYPRN PRN
constipaition
Potassium Chloride 40 meq 10/07/24 08:00 10/08/24 08:34
Potassium Chloride 20 Meq Extended Release Tablet PO 11/04/24 07:59 40 meq
DAILY GERDA Administration
Sodium Chloride 0 flush 10/06/24 18:00
Sodium Chloride 0.9% (Flush) Syringe IV 11/03/24 17:59
PER PROTOCOL GERDA
Sterile Water 10 ml 10/06/24 22:00 10/07/24 21:27
Sterile Water For Injection 10 Ml Vial IV 11/03/24 21:59 10 ml
Q24H GERDA Administration
Thiamine HCl 100 mg 10/07/24 08:00 10/08/24 08:34
Thiamine 100 Mg Tablet PO 11/04/24 07:59 100 mg
DAILY GERDA Administration
Tiotropium [place] 2 puff 10/07/24 08:00 10/08/24 07:30
Tiotropium (Spiriva Respimat) 2.5 Mcg Inhaler INH 11/04/24 07:59 2 puff
R DAILY GERDA Administration
Protocol
Home Medications
�Medication �Instructions �Recorded
hydrocortisone 10 mg tablet 10 mg PO DAILY Anti-Inflammatory 11/20/23
pantoprazole 40 mg tablet,delayed 40 mg PO DAILY Gastrointestinal 11/20/23
release (Protonix) Issue
umeclidinium 62.5 mcg-vilanterol 1 inh inhalation R DAILY 11/20/23
25 mcg/actuation powdr for Lung/Breathing Issues
inhalation (Anoro Ellipta)
acetaminophen 500 mg tablet 1,000 mg PO Q6HPRN PRN mild pain 03/08/24
(Tylenol Extra Strength)
cholecalciferol (vitamin D3) 25 25 mcg PO DAILY Supplement 03/08/24
mcg (1,000 unit) tablet (Vitamin
D3)
albuterol sulfate 90 mcg/actuation 2 puff inhalation R Q4HPRN PRN sob 08/10/24
aerosol inhaler
amitriptyline 10 mg tablet 20 mg PO HS Mental Health/Anxiety 08/10/24
atorvastatin 40 mg tablet 40 mg PO HS High Cholesterol 08/10/24
cyanocobalamin (vitamin B-12) 1,000 mcg PO DAILY Supplement 08/10/24
1,000 mcg tablet
carvedilol 3.125 mg tablet (Coreg) 3.125 mg PO BID Blood Pressure 08/17/24
famotidine 20 mg tablet 20 mg PO BID Gastrointestinal Issue 09/14/24
gabapentin 300 mg capsule 600 mg PO TID Pain 09/14/24
levothyroxine 150 mcg tablet 150 mcg PO DAILY@0600 Thyroid 09/14/24
polyethylene glycol 3350 17 gram 17 g PO DAILYPRN PRN constipaition 09/14/24
oral powder packet
polyvinyl alcohol-povidone (PF) 1 drops BOTH EYES QID Eye Condition 09/14/24
1.4 %-0.6 % eye drops in a
dropperette (Refresh Classic (PF))
furosemide 40 mg tablet (Lasix) 20 mg (1/2 x 40 mg) PO DAILY Fluid 09/19/24
Retention/Swelling #0 tabs
hydromorphone 2 mg tablet 2 mg PO Q4HPRN PRN moderate-severe 09/19/24
pain 3 days #18 tabs
fluticasone furoate 100 1 inh inhalation R DAILY Allergies 10/06/24
mcg/actuation blister powder for
inhalation
loperamide 2 mg tablet 2 mg PO Q4HPRN PRN diarrhea 10/06/24
magnesium hydroxide 400 mg/5 mL 2,400 mg PO [id number] PRN 10/06/24
oral suspension (Milk of Magnesia) constipation
magnesium oxide 400 mg PO DAILY Supplement 10/06/24
magnesium oxide 500 mg PO DIRECTED Supplement 10/06/24
potassium chloride 20 mEq 40 meq PO DAILY Supplement 10/06/24
tablet,extended release
thiamine HCl (vitamin B1) 100 mg 100 mg PO DAILY Supplement 10/06/24
tablet
Past History
Past History
ED Past Medical History: CAD, Cancer (Melanoma with mets to lung), COPD, GERD, HTN, Hypercholesterolemia, Hypothyroidism, Psychiatric ([facility]) and Other (Alcohol abuse/tobacco abuse, PNA, chronic headaches, peripheral neuropathy, nephrolithiasis)
ED Past Surgical History: Other (hernia)
Social History
Tobacco: Smoker
Alcohol: Chronic alcoholic
Drug: None
Personal:
Living: with family
Employment: Retired
Family History
Family History: Other (Reviewed and noncontributory)
[2024-10-08 11:21] VITALS: BP 113/74; PULSE 100; O2SAT 98
[2024-10-08] MEDS: MAXALT MLT (ORALLY DISINTEGRATING) 10 MG PO (11:47)
[2024-10-08] MEDS: IMODIUM 2 MG PO ×3 (11:48→21:12)
[2024-10-08 16:00] VITALS: BP 130/85
[2024-10-08] MEDS: NEURONTIN 400 MG PO ×2 (17:07→21:12)
[2024-10-08] MEDS: TYLENOL 650 MG PO (21:11)
[2024-10-08] MEDS: ELAVIL 30 MG PO (21:11)
[2024-10-08] MEDS: LIPITOR 40 MG PO (21:12)
[2024-10-08] MEDS: STERILE WATER FOR INJECTION 10 ML IV (21:12)
[2024-10-08] MEDS: ROCEPHIN 1000 MG IV (21:12)
[2024-10-08 23:51] VITALS: BP 122/76
[2024-10-09] MEDS: SYNTHROID 75 MCG PO (04:04)
[2024-10-09] MEDS: SYNTHROID 100 MCG PO (04:04)
[2024-10-09 06:13] LABS: % Basophils 0.4 % (0-2); % Eosinophils 3.4 % (0-6); % Lymphocytes 23.9 % (20.5-51.1); % Monocytes 11.1 % (1.7-9.3); % Neutrophils 59.2 % (42.2-75.2); Absolute Eosinophils 0.3 10^3/uL (0-0.7); Absolute Immature Granulocytes 0.2 10^3/uL (0-0.05); Absolute Lymphocytes 2.2 10^3/uL (1.2-3.4); Absolute Neutrophils 5.4 10^3/uL (1.4-6.5); Hematocrit 24.9 % (39.0-52.0); Hemoglobin 8.2 g/dL (13.0-18.0); Mean Corp Hgb Conc. 32.9 g/dL (33.0-37.0); Mean Corpuscular Hgb 29.3 pg (27.0-31.0); Mean Corpuscular Volume 88.9 fL (80.0-94.0); Mean Platelet Volume 9.1 fL (7.4-10.4); Nucleated Red Blood Cells % 0 % (-); Platelet Count 468 10^3/uL (130-400); Red Cell Dist. Width 15.2 % (11.5-14.5); White Blood Cell Count 9.1 10^3/uL (4.8-10.8)
[2024-10-09] MEDS: VIBRAMYCIN 260 MG IV (06:16)
[2024-10-09 06:43] LABS: ALT (SGPT) < 10 U/L (0-50); AST (SGOT) 17 U/L (17-59); Albumin 2.6 g/dl (3.5-5.0); Alkaline Phosphatase 107 U/L (38-126); Blood Urea Nitrogen 8 mg/dl (9-20); Calcium 8.5 mg/dl (8.4-10.2); Carbon Dioxide 28 mmol/L (22-30); Chloride 108 mmol/L (98-107); Estimated Creatinine Clearance 81 ml/min; Glucose 92 mg/dl (70-99); Sodium 139 mmol/L (135-145); Total Bilirubin 0.2 mg/dl (0.2-1.3); eGFR > 60.00
[2024-10-09 07:15] VITALS: BP 128/72
[2024-10-09] MEDS: FLOVENT 44 MCG INHALER 2 PUFF INH ×2 (07:42→19:32)
[2024-10-09] MEDS: SPIRIVA RESPIMAT 2.5 MCG 2 PUFF INH (07:42)
[2024-10-09] MEDS: STRIVERDI RESPIMAT 2 PUFF INH (07:42)
[2024-10-09] MEDS: HEPARIN 5000 UNITS SC ×2 (08:02→20:02)
[2024-10-09] MEDS: PROTONIX 40 MG PO (08:03)
[2024-10-09] MEDS: HYDROCORTONE/CORTEF 20 MG PO (08:03)
[2024-10-09] MEDS: MAGNESIUM OXIDE 500 MG PO ×2 (08:03→20:02)
[2024-10-09] MEDS: VITAMIN B1 100 MG PO (08:03)
[2024-10-09] MEDS: KCL 40 MEQ PO (08:03)
[2024-10-09] MEDS: REFRESH EYE DROPS (PF) 1 DROPS BOTH EYES ×3 (08:04→21:40)
[2024-10-09] MEDS: IMODIUM 2 MG PO ×2 (08:04→21:40)
[2024-10-09] MEDS: PEPCID 20 MG PO ×2 (08:04→20:02)
[2024-10-09] MEDS: NEURONTIN 400 MG PO ×3 (08:04→21:39)
--- NOTE | 2024-10-09 13:19 | W.PN.HOSP.TC ---
Today's Communication/Plan
-
dc planning to SNF
Assessment / Plan
Assessment / Plan
74yo M with PMHx of lung CA followed in [facility], adrenal insufficiency, CAD, CHF, hypothyroidism, HLD, alcohol use d/o, depression, polyneuropathy, chronic pain - opioid dependent sent from [facility] with confusion 2/2 RLL pneumonia with
unspecified organism. Found Elevated TSH and also with HX of RLE complex hematoma - need to exclude it as a reason for infection-induced confusion. Cannot rule out iatrogenic causes also
Assessment:
Sepsis present on admission
Acute hypoxic respiratory insufficiency related to RLL pneumonia (unspecified organism)
- continue Rocephin/Doxy, day 12/04
TME from acute infection process vs meds
- monitor mentation
- Head CT: age-related parenchymal atrophy, allergic sinusitis. No mass
- appreciate Neuro workup
RLE swelling related to tubular shaped complex hematoma
- prior notes mention conservative management
- RLE MRI: Re-demonstration of a large collection in the posteromedial right calf with a similar size but slightly decreased complexity of internal signal compared to the previous right leg MRI from 09/05/2024. A hematoma remains the leading
consideration. An infected collection would be difficult to exclude and fluid sampling could be performed if that is a clinical concern. Rim of peripheral enhancement, but no solid masslike postcontrast enhancement to suggest malignancy.
- clinically unlikely infected with alternative dx of pneumonia
L knee pain
- Xray: degenerative changes
Hypothyroidism
- TSH >35; continue increased Synthroid. repeat TFTs in 4-6 weeks
Anemia
Reactive thrombocytosis
Anemia of chronic disease most likely
- FOBT neg
Hx of lung CA
- followed in [facility]
- previously patient reported that he was in remission
- continue to follow with existent specialists
Adrenal insufficiency
- continue hydrocortisone home dose
Chronic back pain 2/2 chronic L1 compression Fx and multilevel DJD
- Switch to Oxy
- decrease gabapentin
Neuropathy
B12 deficiency
HLD
COPD not in exacerbation
DVT ppx: SC heparin
Code: Full
Dispo: pending SNF placement
Anticipated Discharge: 24 - 48 hours
Subjective/Interval History
-
Date of Service: October 09, 2024
feels more alert and awake today
reports chronic L knee pain as well today in addition to chronic RLE pain from known hematoma
Objective Data
-
Labs:
Laboratory Results
10/09/24
05:50
WBC 9.1
Hgb 8.2 L
Hct 24.9 L
Plt Count 468 H
Sodium 139
Potassium 4.0
Chloride 108 H
Carbon Dioxide 28
BUN 8 L
Creatinine 0.8
Glucose 92
Calcium 8.5
Total Bilirubin 0.2
AST 17
ALT < 10
Alkaline Phosphatase 107
Vital Signs:
Vital Signs
Temp Pulse Resp BP Pulse Ox
98.0 F 93 18 128/72 95
10/09/24 07:15 10/09/24 07:15 10/09/24 07:47 10/09/24 07:15 10/09/24 07:47
I&O
10/08/24 10/09/24 10/10/24
06:59 06:59 06:59
Intake Total 660 / 660 950 / 950
Output Total 900 / 900 400 / 400
Balance -240 / -240 550 / 550
Physical Exam
-
General: No Apparent Distress
HEENT: Normocephalic and Atraumatic
Respiratory: Negative Wheezes
Cardiac: Regular Rhythm and S1/S2
GI: Soft
Musculoskeletal: No Edema
Neuro: AO x 3
Hematologic / Lymphatic: No Lymphadenopathy
Psych: Calm
Data Reviewed
-
Total Time Spent with Patient (in minutes): 45
Labs: Labs Reviewed by me
--- NOTE | 2024-10-09 14:10 | PN.CDI ---
CDI
- -
CDI:
Physician Documentation Request
Admit Date: 10/06/24 15:46
Dear Doctor Tyrese,
Patient has history of CHF noted on H&P
10/07 hospitalist progress note state 'one dose of lasix since had hydration and needs wean off O2 now - suspect mild overload
Clarify which of the following accurately represents the acuity of the patient's heart failure:
____ Acute on chronic
Chronic only
____ Other
Use of terms such as suspected, likely, concern for, or probable (associated with a specific diagnosis that is being evaluated, monitored, or treated as if it exists) are acceptable and can be coded in the inpatient setting, when documented at the
time of discharge.
Thank you,
Lillie Maciel RN, BSN
CDI Specialist
tiger text
Please use your independent medical judgment in providing your response.
--- NOTE | 2024-10-09 14:17 | PN.CDI ---
CDI
- -
CDI:
Physician Documentation Request
Admit Date: 10/06/24 15:46
Dear Doctor Tyrese,
Patient's H&P states pt has a history of CHF.
Echo 04/07/2024 concludes and EF of 60%
10/06 H&P signed at 15:14 states 'Chronic HFpEF', H&P signed at 15:21 states 'Chronic HFmrEF'
In an attempt to clarify potentially conflicting documentation, please clarify the type of CHF:
Type
Systolic
Diastolic
Combined Systolic/Diastolic
Other
Use of terms such as suspected, likely, concern for, or probable (associated with a specific diagnosis that is being evaluated, monitored, or treated as if it exists) are acceptable and can be coded in the inpatient setting, when documented at the
time of discharge.
Thank you,
Lillie Maciel RN, BSN
CDI Specialist
tiger text
Please use your independent medical judgment in providing your response.
[2024-10-09] MEDS: ROXICODONE 5 MG PO ×2 (15:10→21:40)
[2024-10-09 15:30] VITALS: BP 138/84
[2024-10-09] MEDS: TYLENOL 650 MG PO (16:52)
[2024-10-09] MEDS: REFRESH EYE DROPS (PF) BOTH EYES (17:19)
[2024-10-09] MEDS: VIBRAMYCIN 100 MG PO (20:02)
[2024-10-09] MEDS: ROCEPHIN 1000 MG IV (21:40)
[2024-10-09] MEDS: ELAVIL 30 MG PO (21:40)
[2024-10-09] MEDS: LIPITOR 40 MG PO (21:40)
[2024-10-09] MEDS: STERILE WATER FOR INJECTION 10 ML IV (21:41)
[2024-10-09 23:11] VITALS: BP 120/70
[2024-10-10] MEDS: SYNTHROID 75 MCG PO (06:36)
[2024-10-10] MEDS: SYNTHROID 100 MCG PO (06:36)
[2024-10-10 07:24] VITALS: BP 145/96
[2024-10-10] MEDS: FLOVENT 44 MCG INHALER 2 PUFF INH (07:32)
[2024-10-10] MEDS: SPIRIVA RESPIMAT 2.5 MCG 2 PUFF INH (07:32)
[2024-10-10] MEDS: STRIVERDI RESPIMAT 2 PUFF INH (07:32)
[2024-10-10] MEDS: ROXICODONE 5 MG PO (07:49)
[2024-10-10] MEDS: VITAMIN B1 100 MG PO (07:50)
[2024-10-10] MEDS: MAGNESIUM OXIDE 500 MG PO (07:50)
[2024-10-10] MEDS: PROTONIX 40 MG PO (07:51)
[2024-10-10] MEDS: HYDROCORTONE/CORTEF 20 MG PO (07:51)
[2024-10-10] MEDS: NEURONTIN 400 MG PO ×2 (07:51→16:02)
[2024-10-10] MEDS: HEPARIN 5000 UNITS SC (07:51)
[2024-10-10] MEDS: PEPCID 20 MG PO (07:51)
[2024-10-10] MEDS: KCL 40 MEQ PO (07:51)
[2024-10-10] MEDS: VIBRAMYCIN 100 MG PO (07:51)
[2024-10-10 07:52] VITALS: BP 130/87
[2024-10-10] MEDS: REFRESH EYE DROPS (PF) 1 DROPS BOTH EYES (07:52)
[2024-10-10 07:56] LABS: Hematocrit 27.1 % (39.0-52.0); Hemoglobin 8.7 g/dL (13.0-18.0); Mean Corp Hgb Conc. 32.1 g/dL (33.0-37.0); Mean Corpuscular Hgb 28.6 pg (27.0-31.0); Mean Corpuscular Volume 89.1 fL (80.0-94.0); Mean Platelet Volume 9.1 fL (7.4-10.4); Platelet Count 532 10^3/uL (130-400); Red Blood Cell Count 3.04 10^6/uL (4.70-6.10); Red Cell Dist. Width 15.6 % (11.5-14.5); White Blood Cell Count 10.5 10^3/uL (4.8-10.8)
--- NOTE | 2024-10-10 08:10 | W.PN.HOSP.TC ---
Today's Communication/Plan
-
bilateral shoulder Xrays
DC planning to SNF
Assessment / Plan
Assessment / Plan
74yo M with PMHx of lung CA followed in [facility], adrenal insufficiency, CAD, CHF, hypothyroidism, HLD, alcohol use d/o, depression, polyneuropathy, chronic pain - opioid dependent sent from [facility] with confusion 2/2 RLL pneumonia with
unspecified organism. Found Elevated TSH and also with HX of RLE complex hematoma - need to exclude it as a reason for infection-induced confusion. Cannot rule out iatrogenic causes also
Assessment:
Sepsis present on admission
Acute hypoxic respiratory insufficiency related to RLL pneumonia (unspecified organism)
- continue Rocephin/Doxy, day 01/03
TME from acute infection process vs meds
- monitor mentation
- Head CT: age-related parenchymal atrophy, allergic sinusitis. No mass
- appreciate Neuro workup
RLE swelling related to tubular shaped complex hematoma
- prior notes mention conservative management
- RLE MRI: Re-demonstration of a large collection in the posteromedial right calf with a similar size but slightly decreased complexity of internal signal compared to the previous right leg MRI from 09/05/2024. A hematoma remains the leading
consideration. An infected collection would be difficult to exclude and fluid sampling could be performed if that is a clinical concern. Rim of peripheral enhancement, but no solid masslike postcontrast enhancement to suggest malignancy.
- clinically unlikely infected with alternative dx of pneumonia
L knee pain
- Xray: degenerative changes
Bilateral shoulder pains
- Xrays ordered
Hypothyroidism
- TSH >35; continue increased Synthroid. repeat TFTs in 4-6 weeks
Anemia
Reactive thrombocytosis
Anemia of chronic disease most likely
- FOBT neg
Hx of lung CA
- followed in [facility]
- previously patient reported that he was in remission
- continue to follow with existent specialists
Adrenal insufficiency
- continue hydrocortisone home dose
Chronic back pain 2/2 chronic L1 compression Fx and multilevel DJD
- Switch to Oxy
- decrease gabapentin
Neuropathy
B12 deficiency
HLD
COPD not in exacerbation
Chronic HFpEF
DVT ppx: SC heparin
Code: Full
Dispo: SNF today likely
Anticipated Discharge: Today
Subjective/Interval History
-
Date of Service: October 10, 2024
reports chronic shoulder pain, never imaged
no other complaints
Objective Data
-
Labs:
Laboratory Results
10/10/24
07:06
WBC 10.5
Hgb 8.7 L
Hct 27.1 L
Plt Count 532 H
Sodium Pending
Potassium Pending
Chloride Pending
Carbon Dioxide Pending
BUN Pending
Creatinine Pending
Glucose Pending
Calcium Pending
Vital Signs:
Vital Signs
Temp Pulse Resp BP Pulse Ox
97.9 F 103 16 130/87 95
10/10/24 07:52 10/10/24 07:52 10/10/24 07:52 10/10/24 07:52 10/10/24 07:52
I&O
10/09/24 10/10/24 10/11/24
06:59 06:59 06:59
Intake Total 950 / 950 1380 / 1380
Output Total 400 / 400 1075 / 1075
Balance 550 / 550 305 / 305
Physical Exam
-
General: No Apparent Distress
HEENT: Normocephalic and Atraumatic
Respiratory: Negative Wheezes
Cardiac: Regular Rhythm and S1/S2
GI: Soft and Nontender
Genito-urinary: No Costovertebral Tender
Neuro: AO x 3
Hematologic / Lymphatic: No Lymphadenopathy
Psych: Calm
Data Reviewed
-
Total Time Spent with Patient (in minutes): 41
Labs: Labs Reviewed by me
[2024-10-10 08:21] VITALS: BMI 22.8
[2024-10-10 08:34] LABS: Blood Urea Nitrogen 4 mg/dl (9-20); Calcium 8.7 mg/dl (8.4-10.2); Carbon Dioxide 26 mmol/L (22-30); Chloride 105 mmol/L (98-107); Estimated Creatinine Clearance 80 ml/min; Glucose 82 mg/dl (70-99); Potassium 4.4 mmol/L (3.5-5.1); Sodium 138 mmol/L (135-145); eGFR > 60.00
--- NOTE | 2024-10-10 11:03 | CM ---
Addendum entered by RAI Royal 10/10/24 12:20:
Received notification that patient is medically cleared for discharge, Placed a call to Anna in admissions at [facility] to make aware. Had to leave a voice mail message. Received return call back from Anna who confirmed ability to accept today,
[phone] and [phone]
No auth needed as patient is LTC.
Placed a call to patient's [employer]spersons/friend/Chandni who is agreeable to return back to SNF. IMM reviewed, signed on chart.
Original Note:
Placed a call to patient's sister, Flaquita to obtain information for assessment. She stated that patient was only at [facility] for a day. 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 Patient's sister stated that he is
mostly w/c bound. He is able to take a few steps and was working on that in SNF. At baseline, he is confused/forgetful. At the facility, staff was dressing and bathing him as well as assisting him with all ADLS. He is on a regular diet but has a
poor appetite. He has a history of ETOH. He has a very good friend who he met at the bar he would frequent, Chandni, and she is very involved in his care. Will also defer to her for any questions however Flaquita was appreciative of f/u with her. She
stated that when patient is medically stable, she and Chandni would like for patient to go back to [facility].
Placed a call to Anna in admissions at [facility] who confirmed LTC bed hold and will accept back upon discharge.
Plan: Case management will continue to follow and assist with discharge planning. Back to [facility] when stable.
[2024-10-10 11:40] VITALS: BP 109/74
--- NOTE | 2024-10-10 11:55 | W.DS.TRANS ---
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
-
Discharge Instructions:
Sleep Apnea Risk Intermediate
Discharge Diagnosis/Procedures pneumonia, TME from pneumonia, chronic hematoma
Diet Low Cholesterol,2 Gram Sodium
Activity As tolerated
Other Services PT,OT
Instructions:
Stand-Alone Forms:
Changes to Home Medications: No
Discharge Medications:
DC Medications w/original date entered in [facility]
hydrocortisone 10 mg tablet 10 mg PO DAILY Anti-Inflammatory 11/20/23
pantoprazole 40 mg tablet,delayed release (Protonix) 40 mg PO DAILY Gastrointestinal Issue 11/20/23
umeclidinium 62.5 mcg-vilanterol 25 mcg/actuation powdr for inhalation (Anoro Ellipta) 1 inh inhalation R DAILY Lung/Breathing Issues 11/20/23
acetaminophen 500 mg tablet (Tylenol Extra Strength) 1,000 mg PO Q6HPRN PRN mild pain 03/08/24
cholecalciferol (vitamin D3) 25 mcg (1,000 unit) tablet (Vitamin D3) 25 mcg PO DAILY Supplement 03/08/24
albuterol sulfate 90 mcg/actuation aerosol inhaler 2 puff inhalation R Q4HPRN PRN sob 08/10/24
atorvastatin 40 mg tablet 40 mg PO HS High Cholesterol 08/10/24
cyanocobalamin (vitamin B-12) 1,000 mcg tablet 1,000 mcg PO DAILY Supplement 08/10/24
carvedilol 3.125 mg tablet (Coreg) 3.125 mg PO BID Blood Pressure 08/17/24
famotidine 20 mg tablet 20 mg PO BID Gastrointestinal Issue 09/14/24
levothyroxine 150 mcg tablet 150 mcg PO DAILY@0600 Thyroid 09/14/24
polyethylene glycol 3350 17 gram oral powder packet 17 g PO DAILYPRN PRN constipaition 09/14/24
polyvinyl alcohol-povidone (PF) 1.4 %-0.6 % eye drops in a dropperette (Refresh Classic (PF)) 1 drops BOTH EYES QID Eye Condition 09/14/24
furosemide 40 mg tablet (Lasix) 20 mg (1/2 x 40 mg) PO DAILY Fluid Retention/Swelling #0 tabs 09/19/24
fluticasone furoate 100 mcg/actuation blister powder for inhalation 1 inh inhalation R DAILY Allergies 10/06/24
loperamide 2 mg tablet 2 mg PO Q4HPRN PRN diarrhea 10/06/24
magnesium hydroxide 400 mg/5 mL oral suspension (Milk of Magnesia) 2,400 mg PO [id number] PRN constipation 10/06/24
magnesium oxide 400 mg PO DAILY Supplement 10/06/24
magnesium oxide 500 mg PO DIRECTED Supplement 10/06/24
potassium chloride 20 mEq tablet,extended release 40 meq PO DAILY Supplement 10/06/24
thiamine HCl (vitamin B1) 100 mg tablet 100 mg PO DAILY Supplement 10/06/24
amitriptyline 10 mg tablet 30 mg (3 x 10 mg) PO HS Mental Health/Anxiety #0 tabs 10/10/24
cefdinir 300 mg capsule 300 mg PO BID #6 caps 10/10/24
doxycycline hyclate 100 mg capsule 100 mg PO BID #6 caps 10/10/24
gabapentin 400 mg capsule 400 mg PO TID #90 caps 10/10/24
oxycodone 5 mg tablet 5 mg PO Q4HPRN PRN moderate-severe pain #10 tabs 10/10/24
Home Medication Changes
Amitriptyline increased
Gabapentin decreased
Dilaudid stopped in favor of Oxy
Pending Results: No
Total time spent discharging patient (in min): 41
[2024-10-10 15:32] VITALS: BP 124/78
[2024-10-10] MEDS: TYLENOL 650 MG PO (16:01)
[2024-10-10] MEDS: REFRESH EYE DROPS (PF) BOTH EYES (16:02)
== END 2024-10-10 17:18 | DRG 871 ==
LOC: 3 WEST ACU 15:46
PROVIDERS: Internal Medicine; Registered Nurse; ADMITTING PHYSICIAN Hospitalist; ATTENDING PHYSICIAN Internal Medicine; CONSULT PHYSICIAN Psychiatry & Neurology Neurology; EMERGENCY PHYSICIAN Emergency Medicine; FAMILY PHYSICIAN Internal Medicine
DX: A41.89 Other specified sepsis (principal); G92.8 Other toxic encephalopathy; J18.9 Pneumonia, unspecified organism; J44.0 Chronic obstructive pulmonary disease with (acute) lower respiratory infection; E27.3 Drug-induced adrenocortical insufficiency; F11.20 Opioid dependence, uncomplicated; M48.56XA Collapsed vertebra, not elsewhere classified, lumbar region, initial encounter for fracture; I50.32 Chronic diastolic (congestive) heart failure; E03.9 Hypothyroidism, unspecified; I34.0 Nonrheumatic mitral (valve) insufficiency; F32.A Depression, unspecified; G89.4 Chronic pain syndrome; I11.0 Hypertensive heart disease with heart failure; K59.1 Functional diarrhea; I25.10 Atherosclerotic heart disease of native coronary artery without angina pectoris; G43.909 Migraine, unspecified, not intractable, without status migrainosus; D75.838 Other thrombocytosis; D63.8 Anemia in other chronic diseases classified elsewhere; F17.200 Nicotine dependence, unspecified, uncomplicated; E53.8 Deficiency of other specified B group vitamins; K21.9 Gastro-esophageal reflux disease without esophagitis; E78.00 Pure hypercholesterolemia, unspecified; F10.10 Alcohol abuse, uncomplicated; G62.9 Polyneuropathy, unspecified; M17.12 Unilateral primary osteoarthritis, left knee; R06.89 Other abnormalities of breathing; R09.02 Hypoxemia; M25.512 Pain in left shoulder; M25.511 Pain in right shoulder; S80.11XA Contusion of right lower leg, initial encounter; X58.XXXA Exposure to other specified factors, initial encounter; Z85.118 Personal history of other malignant neoplasm of bronchus and lung; Z79.890 Hormone replacement therapy; Z85.820 Personal history of malignant melanoma of skin; Z11.52 Encounter for screening for COVID-19; Z87.442 Personal history of urinary calculi
CPT/HCPCS: 70450; 71046; 73030; 73564; 73720; 80048; 80053; 81003; 82607; 82728; 82746; 83540; 83550; 83880; 84443; 85025; 85027; 85045; 87070; 87449; 87502; 87811; 87899; 94640; 96361; 96374; 97110; 97116; 97162; 97166; 97530; 99284; A9575

== ENCOUNTER 2024-10-23 19:46 | Inpatient (IN) | payer MEDICARE, OTHER, SELFPAY ==
[2024-10-23] VITALS (13 sets, daily range): BP systolic 99–119; BP diastolic 56–82; BMI 21.6; BMI 22.6
[2024-10-23 13:25] LABS: % Basophils 0.4 % (0-2); % Eosinophils 0.9 % (0-6); % Immature Granulocytes 1.7 % (0-0.5); % Monocytes 9.4 % (1.7-9.3); % Neutrophils 75.6 % (42.2-75.2); Absolute Basophils 0.1 10^3/uL (0-0.2); Absolute Eosinophils 0.1 10^3/uL (0-0.7); Absolute Immature Granulocytes 0.2 10^3/uL (0-0.05); Absolute Lymphocytes 1.7 10^3/uL (1.2-3.4); Absolute Monocytes 1.3 10^3/uL (0.1-0.6); Absolute Neutrophils 10.5 10^3/uL (1.4-6.5); Hemoglobin 8.4 g/dL (13.0-18.0); Mean Corp Hgb Conc. 31.1 g/dL (33.0-37.0); Mean Corpuscular Hgb 27.5 pg (27.0-31.0); Mean Corpuscular Volume 88.2 fL (80.0-94.0); Mean Platelet Volume 8.8 fL (7.4-10.4); Nucleated Red Blood Cells % 0 % (-); Platelet Count 628 10^3/uL (130-400); Red Blood Cell Count 3.06 10^6/uL (4.70-6.10); Red Cell Dist. Width 15.4 % (11.5-14.5); Urine Albumin 2+ (Neg - Trace); Urine Bilirubin Negative (Negative); Urine Character Clear (Clear); Urine Color Yellow; Urine Glucose Negative (Negative); Urine Ketone Negative (Negative); Urine Leukocyte Negative (Negative); Urine Nitrite Negative (Negative); Urine Occult Blood 4+ (Negative); Urine Urobilinogen Negative (Neg - 1+); White Blood Cell Count 13.9 10^3/uL (4.8-10.8)
[2024-10-23 13:37] LABS: COVID-19 Antigen Negative (Negative)
--- NOTE | 2024-10-23 13:38 | ED.GENMED ---
History of Present Illness
General
Chief Complaint: Change in Mental Status
Source: patient and records
Time Seen by Provider: 10/23/24 13:21
History of Present Illness
History of Present Illness:
This patient is a 74-year-old male presents to the emergency department with reported confusion. History is very limited given patient's confusion. He does recognize that he is confused. He describes looking at the menu at the facility where he
lives this morning and then suddenly being in the [place]arcia with 3 other people. He is oriented right now, but clearly needs to be redirected when answering questions and gets easily confused. He denies any physical complaints.
Past History
Past History
ED Past Medical History: CAD, Cancer (Melanoma with mets to lung), COPD, GERD, HTN, Hypercholesterolemia, Hypothyroidism, Psychiatric ([facility]) and Other (Alcohol abuse/tobacco abuse, PNA, chronic headaches, peripheral neuropathy, nephrolithiasis)
ED Past Surgical History: Other (hernia)
Social History
Tobacco: Smoker
Alcohol: Chronic alcoholic
Drug: None
Personal:
Living: [facility]
Employment: Retired
Family History
Family History: Other (Reviewed and noncontributory)
Phy Exam
Physical Exam
Physical Exam:
GENERAL: Alert , in no apparent distress
EYE: pupils equal and reactive, no photophobia
NECK: Supple, no significant adenopathy.
ENT: o/p clr, mmm.
CARDIAC: Regular rate and rhythm .
LUNGS: Clear breath sounds bilaterally, no acute respiratory distress, no wheezes/rales/rhonchi
ABDOMEN: Soft, without focal tenderness, no r/g, no cvat
NEUROLOGICAL: Alert and oriented to person, place, month and year, but then obviously confused with further questioning, no focal neuro deficits
SKIN: Warm and dry, skin intact.
MUSCULOSKELETAL: No edema, well perfused.
PSYCH: Slightly confused but otherwise appropriate
Sepsis
Sepsis Screening
Sepsis Assessment: Sepsis
Sepsis Screen
Sepsis Screen: Sepsis
Date: 10/24/24
Time: 13:13
Course
Orders/Labs/Results
Orders:
Orders
10/23/24 13:05
COVID-19 Antigen Urgent
Source: Nasal Swab
Complete Blood Count/With Diff Urgent
Comprehensive Metabolic Panel Urgent
Cortisol, Random Urgent
Comment: ADD ON
Urinalysis Reflex To Culture Urgent
Date Specimen was Collected: 10/23/24
Time Specimen was Collected: 12:45
Urine Microscopic Reflex Cult Urgent
Influenza A+B Rapid Molecular Urgent
ALETHA Source: Nasal Swab
Specimen Description:
10/23/24 13:11
Lactic Acid Urgent
10/23/24 13:42
CT Head W/o Iv Contrast Urgent
Comment:
Reason For Exam: ms change, fever, hx melanoma
CR Chest - 2 Views Urgent
Comment:
Reason For Exam: fever
10/23/24 13:44
0.9% Sodium Chloride 1000 ml [Nss] 1,900 ml IV NOW STA
10/23/24 Dinner
Regular
At Your Request: Full Participation
10/23/24 15:17
Piperacillin/Tazo 4.5 Gram [Zosyn] 4.5 gram in 100 ml IV NOW
10/23/24 17:04
Vancomycin [Vancocin] 1,500 mg 0.9% Sodium Chloride 500 ml [Nss] 500 ml IV NOW
10/23/24 18:07
Speech Screening from Taryn Routine
10/23/24 18:48
Admit/Transfer Patient As Directed
Co-Sign Provider:
Level of Care: Inpatient admission
Assign to:: IMU- Intermediate Care
Physician / Group: Hospitalist
Diagnosis: Sepsis, encephalopathy, adrenal insufficiency
Reason for Hospitalization: Sepsis, encephalopathy, adrenal insufficiency
Expected length of stay greater than two midnights?: Yes
ELOS- Estimated Length of Stay in days: 3
I certify the patient meets the requirements for IP care: Yes
10/23/24 18:49
PRN Pain Medication Management As Directed
May give lesser potent ordered pain med per pt: Yes
preference::
Protocol:: Medication orders for pain may be administered in a
manner that supports deferring to patient preference
when the pt is:
- Requesting an ordered lesser potent pain medication.
Least to most potent pain medications are defined
as: acetaminophen < NSAID < tramadol < opioids
(morphine, oxycodone, hydromorphone).
- Requesting a lesser dose of the same medication IF
ORDERED.
- Requesting a less intrusive route of administration
if both routes are prescribed by the provider (PO <
IV).
10/23/24 18:57
Code Status As Directed
Resuscitation Status: Full Code
10/23/24 19:26
Oxycodone [Roxicodone] 5 mg PO Q4HPRN PRN
10/23/24 19:58
0.9% Sodium Chloride 1000 ml [Nss] 1,000 ml IV 100 mls/hr
Acetaminophen [Tylenol] 650 mg PO Q6HPRN PRN
Albuterol [ProAIR HFA INHALER] 2 puff INH R Q4HPRN PRN
Enoxaparin Sodium [Lovenox] 40 mg SC QPM
Magnesium Hydroxide [Milk of Magnesia] 30 ml PO [id number] PRN
Polyethylene Glycol Powder [Miralax] 17 grams PO DAILYPRN PRN
10/23/24 19:58
Add On- LAB Routine
Tests Added?: random cortisol
INFECTIOUS DISEASE CONSULT Routine
Consulting Provider: Josué Aponte
Was physician already notified: Yes
PSYCHIATRY CONSULT Routine
Consulting Provider: Lamar Pabon
Was physician already notified: Yes
Activity As Directed
Activity Level: As Tolerated
Intake/ Output As Directed
Frequency: Per unit guidelines
Vital Signs As Directed
Frequency: Per unit guidelines
DX Deep Vein Thrombosis Video Routine
10/23/24 20:00
Famotidine [Pepcid] 20 mg PO BID
Magnesium Oxide 500 mg PO BID
10/23/24 20:15
FLUTICASONE PROPIONATE 44 mcg [Flovent 44 Mcg Inhaler] 2 puff INH R BID
10/23/24 22:00
Amitriptyline [Elavil] 30 mg PO HS
Artificial Tears (Pf) [Refresh Eye Drops (Pf)] 1 drops BOTH EYES QID
Atorvastatin [Lipitor] 40 mg PO HS
Gabapentin [Neurontin] 400 mg PO TID
Hydrocortisone [Cortef] 50 mg PO TID
Piperacillin/Tazo 3.375 Gram [Zosyn] 3.375 gram in 50 ml IV Q6H
10/24/24 03:51
Complete Blood Count/No Diff IN AM
Comprehensive Metabolic Panel IN AM
Lyme Progressive IN AM
Uric Acid IN AM
10/24/24 06:00
Echo 2D MMode Color/Doppler IN AM
Reason for Study: sepsis
Levothyroxine [Synthroid] 150 mcg PO DAILY@0600
10/24/24 08:00
Cholecalciferol (Vitamin D3) [VITAMIN D3 (cholecalciferol)] 25 mcg PO DAILY
Cyanocobalamin [Vitamin B-12] 1,000 mcg PO DAILY
Pantoprazole [Protonix] 40 mg PO DAILY
Thiamine HCl [Vitamin B1] 100 mg PO DAILY
umeclidinium-vilanterol [Anoro Ellipta] 1 inh INH R DAILY
Abnormal Lab Results
10/23/24
13:05
WBC 13.9 H 10^3/uL
(4.8-10.8)
RBC 3.06 L 10^6/uL
(4.70-6.10)
Hgb 8.4 L g/dL
(13.0-18.0)
Hct 27.0 L %
(39.0-52.0)
MCHC 31.1 L g/dL
(33.0-37.0)
RDW 15.4 H %
(11.5-14.5)
Plt Count 628 H 10^3/uL
(130-400)
Abs Immat Gran (auto) 0.2 H 10^3/uL
(0-0.05)
Absolute Neuts (auto) 10.5 H 10^3/uL
(1.4-6.5)
Absolute Monos (auto) 1.3 H 10^3/uL
(0.1-0.6)
Immature Gran % 1.7 H %
(0-0.5)
Neutrophils % 75.6 H %
(42.2-75.2)
Lymphocytes % 12.0 L %
(20.5-51.1)
Monocytes % 9.4 H %
(1.7-9.3)
Sodium 129 L mmol/L
(135-145)
Potassium 5.2 H mmol/L
(3.5-5.1)
Chloride 96 L mmol/L
(98-107)
Glucose 129 H mg/dl
(70-99)
Alkaline Phosphatase 164 H U/L
(38-126)
Total Protein 6.2 L g/dl
(6.3-8.2)
Albumin 3.2 L g/dl
(3.5-5.0)
Ur Occult Blood Reflex 4+ A
(Negative)
Urine RBC 40-50 A /HPF
(0-2)
Urine Albumin (Reflex) 2+ A
(Neg - Trace)
10/23/24 13:05
10/23/24 13:05
Vital Signs
Initial and Last Documented VS:
Initial Vital Signs
Temp Pulse Resp BP Pulse Ox
99.2 F 102 20 109/61 95
10/23/24 12:32 10/23/24 12:32 10/23/24 12:32 10/23/24 12:32 10/23/24 12:32
Last Documented Vital Signs
Temp Pulse Resp BP Pulse Ox
98.0 F 98 18 113/66 95
10/24/24 11:35 10/24/24 12:10 10/24/24 12:10 10/24/24 12:10 10/24/24 08:21
*Critical Care Note
Total Time (30-74mins, 75-104mins- exclusive of procedures): 31
Update Note
Update Note:
Patient presents to the Emergency Department with mental status change
Number and Complexity of Problems Addressed at the Encounter
� Chronic conditions affecting care:
� Acute Exacerbation and/or Progression of Chronic Illness:
� Differential Diagnosis includes: But not limited to meningitis, encephalitis, toxic metabolic encephalopathy, electrolyte disorder, etc. etc.
Amount and/or Complexity of Data to be Reviewed and Analyzed
� I performed an independent evaluation of and my interpretation is:
EKG:
CT:No acute intracranial abnormality.
Severe paranasal sinus disease within the ethmoid air cells and partially imaged maxillary sinuses.
Xrays: read by me nad
Laboratory Studies:baseline anemia, leukocytosis, thrombocytosis (higher than baseline), mild hypoNa, microscopic hematuria
Other:
� Review of other/old records reveals: Patient admitted October 10, 2024 with TMe secondary to pneumonia
� Clinical information was obtained by an independent historian:
� Prescriptions/Medications Considered but not given:
� Further testing considered but not performed: With fever and confusion obviously infection high on the differential. Highly doubt meningitis/encephalitis given lack of focal findings such as photophobia, nuchal rigidity,
toxicity, etc.
Risk of Complications and/or Morbidity or Mortality of Patient Management
� Social determinants of health affecting care:
� Discussion with other providers (PCP, Hospitalists, Consultants, etc):
� Escalation of care including admission/observation vs risk of discharge considered:318 pm pt remains awake, alert, still mild confusion otherwise no new findings. w/u noted, fever/leukocytosis/ms change/tachycardia/tachypnea
etc suspect TME/sepsis, unclear etiology at this time. Presumptive abx started, will d/w hospitalist for admission (em)
ED Attending Note
-
Portions of this chart may have been created with voice recognition software.� Occasional wrong word or��sound alike� substitutions may have occurred due to the inherent limitations of voice recognition software.
Discharge Plan
Departure
Patient Disposition: Admit
Date of Disposition: 10/23/24
Time of Disposition: 15:19
Admit to: Telemetry
Presentation/result/management discussed w/ accepting MD/DO: Hospitalist
Condition: Fair
Discharge Problem:
Sepsis, unspecified organism
Interventions
Interventions:
*Risk Screen - Suicide Last Done: 10/23/24 22:14
*General Assessment Last Done: 10/23/24 12:32
*Neglect/Abuse Screening Last Done: 10/23/24 12:32
*ED COVID-19 Vaccine History Last Done: 10/23/24 22:14
*Nursing Disposition Last Done: 10/23/24 21:36
ED- Neurological Assessment Last Done: 10/23/24 15:15
ED Swallowing Screen Last Done: 10/23/24 16:30
Discharge Date and Time
Discharge Date/Time: 10/23/24 21:36
[2024-10-23 13:42] LABS: Lactic Acid 1.7 mmol/L (0.7-2.0)
[2024-10-23 13:43] LABS: ALT (SGPT) 16 U/L (0-50); AST (SGOT) 40 U/L (17-59); Albumin 3.2 g/dl (3.5-5.0); Alkaline Phosphatase 164 U/L (38-126); Blood Urea Nitrogen 16 mg/dl (9-20); Calcium 9.5 mg/dl (8.4-10.2); Carbon Dioxide 25 mmol/L (22-30); Chloride 96 mmol/L (98-107); Estimated Creatinine Clearance 61 ml/min; Glucose 129 mg/dl (70-99); Potassium 5.2 mmol/L (3.5-5.1); Sodium 129 mmol/L (135-145); Total Bilirubin 0.9 mg/dl (0.2-1.3); Total Protein 6.2 g/dl (6.3-8.2); eGFR > 60.00
[2024-10-23] MEDS: NSS 1900 ML IV (14:00)
[2024-10-23 14:26] LABS: Urine Squamous Cell 0-2 /LPF (Few)
[2024-10-23 14:27] LABS: Urine Amorphous Seen; Urine Mucus Moderate
[2024-10-23 14:28] LABS: Urine Red Blood Cell 40-50 /HPF (0-2)
[2024-10-23 14:29] LABS: Urine White Cell 0-2 /HPF (0-5)
[2024-10-23] MEDS: ZOSYN 100 IV (15:46)
[2024-10-23] MEDS: VANCOCIN 530 MG IV (17:51)
--- NOTE | 2024-10-23 19:27 | HPS.HSE ---
Addendum entered and electronically signed by Carolyn Blancas MD 10/23/24 20:38:
I personally performed a history and physical exam of the patient and discussed management with the resident. I reviewed the resident's note and agree with the documented findings and plan of care HPI/CC.
GENERAL: well developed, well nourished, male in no apparent distress--knows he is hallucinating and confused
HEENT: NC/AT--no specific nuchal rigidity
HEART: regular rate and rhythm, +S1, +S2
LUNGS : clear to auscultation bilaterally
ABDOM: soft, nontender, nondistended, + bowel sounds
EXT: no cyanosis, clubbing, or edema--bilateral shoulders/knees/elbows are warm to touch and hurt to move
NEUROLOGIC: grossly intact
SKIN: no rashes appreciated
Sepsis but source unclear--CXR neg, head CT neg, UA neg, Covid/Flu neg--pt does admit to diarrhea (colitis/enteritis), diffuse joint pain likely reactive (consider endocarditis)--with confusion consider [employer] source--admit to IMU--consult ID--check
Lyme and uric acid--cont vanco/zosyn--gutiérrez culture--check CT scan abdomen/pelvis--cont IVF--hold diuretics--if needed, start pressors--check ECHO
Encephalopathy--Likely toxic metabolic encephalopathy secondary to infection. Medication adverse effect is a possibility--Pt does report hallucinations--Psych consult
Electrolyte abnormality--Hyponatremia with Hyperkalemia--lends towards adrenal insufficiency--stress dose hydrocortisone -- follow labs--cont IVF
Diarrhea--pt has had in past thought to be due to immune reaction from immune therapy--check stool studies--has been off therapy--hold loperamide
Thrombocytosis--Likely reactive--Follow CBC
Polyarthritis--Could be reactive, or part of infectious process--Continue IV abx--Check uric acid, lyme
Adrenal insufficiency--On hydrocortisone 10mg daily at home. Will stress dose 50mg Q2J--Cvnm diuretics and antihypertensive
COPD without exacerbation-- Continue Anoro ellipta
GERD-- Cont PPI
Essential HTN-- Holding antihypertensives
Melanoma plus lung mets--off immune therapy--followed at [facility]
Alcohol use disorder--Last drink 8 months ago
Peripheral neuropathy--Continue amitriptyline and gabapentin
Chronic anemia--Stable at this time, follow CBC
Chronic headaches--As needed Tylenol
Nephrolithiasis
DVT prophy--Lovenox
CODE STATUS--Full code--believe was seen by Palliative care in a past admission
Original Note:
Family Physician
-
Family Physician: Daryl Gibson
Chief Complaint
-
Confusion
History of Present Illness
72 year old male with hx of adrenal insufficiency, hypothyroidism, melanoma with lung mets, chronic headaches, COPD, HTN, GERD, peripheral neuropathy, alc use disorder who was brought in by a friend from [facility] for confusion. Pt reports
feeling absent minded, disoriented and hallucinating (people, places) within the past few days. He also complains of alternating diarrhea/constipation, pain in multiple joints including cervical neck, bilateral shoulders, elbows, knees and wrists.
Denies fever, sinus pressure, chest pain, abdominal pain, or N/V. He has no implantable devices or joint replacements. He has had multiple recent admissions in the past 3 months, with the most recent a 4-day admission from 10/06 for PNA, TME, and
chronic hematoma, treated with cefdinir and doxycycline. He is unsure of the medications he is currently on.
History is disjointed, but he is aware of his confusion and mostly can be reoriented back to conversation.
Medical History
Past Medical History
Past Medical History: Reports CAD, Cancer (melanoma + lung mets), COPD, GERD, HTN, Hypercholesterolemia, Hypothyroidism, Psychiatric ([facility]) and Other (Alc use disorder, last drink 8 months ago, adrenal insufficiency, pneumonia, chronic headaches,
peripheral neuropathy, nephrolithiasis)
Past Surgical History: Reports Other (bilateral cataract sx, hernia repair)
Social History
Tobacco: Former Smoker
Alcohol: Former (former daily drinker, last drink 8 months ago)
Drug: None
Personal:
Living: [facility]
Family History
Family History: Not pertinent
Allergies / Home Medications
Allergies reflects when Allergies were last updated in [employer].
Home Medications with original date entered in [employer]
Allergy/Medication List:
Allergies
Allergy/AdvReac Type Severity Reaction Status Date / Time
No Known Allergies Allergy Verified 10/06/24 19:35
Home Medications
hydrocortisone 10 mg tablet 10 mg PO DAILY Anti-Inflammatory 11/20/23
pantoprazole 40 mg tablet,delayed release (Protonix) 40 mg PO DAILY Gastrointestinal Issue 11/20/23
umeclidinium 62.5 mcg-vilanterol 25 mcg/actuation powdr for inhalation (Anoro Ellipta) 1 inh inhalation R DAILY Lung/Breathing Issues 11/20/23
cholecalciferol (vitamin D3) 25 mcg (1,000 unit) tablet (Vitamin D3) 25 mcg PO DAILY Supplement 03/08/24
albuterol sulfate 90 mcg/actuation aerosol inhaler 2 puff inhalation R Q4HPRN PRN sob 08/10/24
atorvastatin 40 mg tablet 40 mg PO HS High Cholesterol 08/10/24
cyanocobalamin (vitamin B-12) 1,000 mcg tablet 1,000 mcg PO DAILY Supplement 08/10/24
carvedilol 3.125 mg tablet (Coreg) 3.125 mg PO BID Blood Pressure 08/17/24
famotidine 20 mg tablet 20 mg PO BID Gastrointestinal Issue 09/14/24
levothyroxine 150 mcg tablet 150 mcg PO DAILY@0600 Thyroid 09/14/24
polyethylene glycol 3350 17 gram oral powder packet 17 g PO DAILYPRN PRN constipation 09/14/24
polyvinyl alcohol-povidone (PF) 1.4 %-0.6 % eye drops in a dropperette (Refresh Classic (PF)) 1 drops BOTH EYES QID Eye Condition 09/14/24
furosemide 40 mg tablet (Lasix) 20 mg (1/2 x 40 mg) PO DAILY Fluid Retention/Swelling #0 tabs 09/19/24
fluticasone furoate 100 mcg/actuation blister powder for inhalation 1 inh inhalation R DAILY Allergies 10/06/24
loperamide 2 mg tablet 2 mg PO Q4HPRN PRN diarrhea 10/06/24
magnesium hydroxide 400 mg/5 mL oral suspension (Milk of Magnesia) 2,400 mg PO [id number] PRN no bm x3 days 10/06/24
magnesium oxide 400 mg PO DAILY Supplement 10/06/24
magnesium oxide 500 mg PO BID Supplement 10/06/24
potassium chloride 20 mEq tablet,extended release 40 meq PO DAILY Supplement 10/06/24
thiamine HCl (vitamin B1) 100 mg tablet 100 mg PO DAILY Supplement 10/06/24
amitriptyline 10 mg tablet 30 mg (3 x 10 mg) PO HS Mental Health/Anxiety #0 tabs 10/10/24
gabapentin 400 mg capsule 400 mg PO TID #90 caps 10/10/24
oxycodone 5 mg tablet 5 mg PO Q4HPRN PRN moderate-severe pain #10 tabs 10/10/24
acetaminophen 325 mg tablet 650 mg PO Q6HPRN PRN mild pain 10/23/24
Review of Systems
-
Unable to obtain full review of systems at this time due to: Acuity (encephalopathy)
History Source: Patient
Constitutional: Denies Fever
EENT: Reports Other (no sinus pressure )
Respiratory: Denies Cough or Trouble Breathing
Cardiac: Denies Chest Pain
Abdomen/GI: Reports Diarrhea and Constipated; Denies Abdominal Pain, Nausea or Vomiting
: Denies Dysuria, Flank Pain, Difficulty Voiding or Bleeding
Musculoskeletal: Reports Joint Pain (neck, shoulders, elbows, wrists, knees)
Skin: Reports Other (no wounds); Denies Itching or Rash
Psych: Reports Audio or Visual Hallucinations and Other (confusion)
Physical Exam
Vital Signs
Vital Signs
Temp Pulse Resp BP Pulse Ox
98.6 F 102 15 108/82 97
10/23/24 19:05 10/23/24 19:02 10/23/24 17:00 10/23/24 19:02 10/23/24 19:05
Physical Exam
General: No Apparent Distress, Comfortable and Conversant
HEENT: NormoCephalic, Moist mucous membranes, Atraumatic, PERRLA and Other (no sinus tenderness); No Good Dentition
Respiratory: Clear and Non Labored Respirations; No Wheezes, Rales, Rhonchi or Crackles
Cardiac: S1/S2 and Regular Rhythm; No Murmur, Rub, Gallop, Peripheral Edema or Calf Tenderness
GI: Soft, Non Tender, Non Distended and Normal Bowel Sounds
Genito-urinary: No costovertebral tender
Musculoskeletal: No Clubbing, No Cyanosis, No Edema and Other (limited ROM due to pain of right wrist, left knee and bilateral shoulders. Bilateral knees and shoulders warm to the touch, no obvious swelling or redness)
Skin: Warm, Dry and Other (no wounds); No Rash
Neuro: Awake, Alert and Oriented (oriented to person and place)
Psych: Confused and Anxious
Laboratory Results
-
10/23/24 13:05
10/23/24 13:05
Laboratory Results
Lactic Acid 1.7 mmol/L (0.7-2.0) 10/23/24 13:11
Total Bilirubin 0.9 mg/dl (0.2-1.3) 10/23/24 13:05
AST 40 U/L (17-59) 10/23/24 13:05
ALT 16 U/L (0-50) 10/23/24 13:05
Alkaline Phosphatase 164 U/L (38-126) H 10/23/24 13:05
Impression/Plan
-
IMPRESSION: 74 year old male with adrenal insufficiency and other PMH who presents with SIRS with unknown source, encephalopathy, thrombocytosis, electrolyte abnormalities, and polyarthritis.
PLAN:
SIRS:
Leukocytosis, tachycardia, fever. Yet to find source. Admit to IMU
Chest x-ray with no acute abnormalities. Head CT with no acute abnormalities
Urinalysis normal, lactic acid normal, COVID/flu negative
-With polyarthritis, with check echo, and Lyme
-Infectious disease consult
-Continue Vanco and Zosyn
-Continue IVF, hold diuretics, and carvedilol while pressures are low/borderline
Encephalopathy:
Likely toxic metabolic encephalopathy secondary to infection. Medication adverse effect is a possibility
Pt does report hallucinations
-Psych consult
Electrolyte abnormality:
Hyponatremia with Hyperkalemia
-History of adrenal insufficiency, will stress dose hydrocortisone
-Continue IVF
-Hold home potassium chloride
-Check sodium labs
Diarrhea:
Patient frequently alternates between diarrhea and constipation, however he complains currently of diarrhea
-Will check stool studies
-Hold loperamide
Thrombocytosis:
Likely reactive
-Follow CBC
Polyarthritis:
Could be reactive, or part of infectious process.
-Continue IV abx
-Check uric acid, lyme
Adrenal insufficiency:
-On hydrocortisone 10mg daily at home. Will stress dose 50mg Q6H
-Hold diuretics and antihypertensive
Other problems:
COPD: Continue Anoro ellipta
GERD: COnt PPI
HTN: Holding antihypertensives
CAD
Melanoma plus lung mets
Alcohol use disorder: Last drink 8 months ago
Peripheral neuropathy: Continue amitriptyline and gabapentin
Chronic anemia: Stable at this time, follow CBC
Chronic headaches: As needed Tylenol
Nephrolithiasis
DVT prophylaxis: Lovenox
CODE STATUS: Full code
[2024-10-23] MEDS: FLUSH (NSS) 1 FLUSH IV (20:10)
[2024-10-23] MEDS: ROXICODONE 5 MG PO (20:10)
[2024-10-23] MEDS: NSS 1000 IV (20:37)
[2024-10-23] MEDS: LOVENOX 40 MG SC (20:37)
[2024-10-23] MEDS: MAGNESIUM OXIDE 500 MG PO (20:37)
[2024-10-23] MEDS: PEPCID 20 MG PO (20:37)
--- NOTE | 2024-10-23 20:38 | PHA.VAN.IN ---
Assessment
- Assessment
Renal Function: Appears elevated from baseline (10/10/24 Baseline Scr: 0.8)
Concomitant Antimicrobials: ZOSYN
- Previous Dosing Experience
Previous Regimen: 2GM IV X 1
Date of Regimen: 08/13/24
Provided Trough of: UNKNOWN
Provided AUC of: UNKNOWN
Patient's SCR is: Decreased compared to previous dosing experience (08/13/25 SCR = 1.1)
Patient's weight is: Decreased compared to previous dosing experience (08/13/25 WT = 76.2 KG)
AUC Dosing Plan
- Dosing Variables
Dosing Weight (kg): 64.5
Dosing CrCl (ml/min): 61
Vd coefficient (L/kg): 0.7
- Empiric Dosing
Initial / Loading Dose: 1500MG
Maintenance Regimen: 1250MG IV Q24H
Estimated AUC (mcg*h/mL): 524
Estimated Peak (mcg*h/mL): 37.8
Estimated Trough (mcg/ml): 10.9
Estimated Half Life (H): 12.6
Pharmacokinetics Vancomycin I
- -
Patient Age: 74
Patient Sex: Male
Vancomycin Day #: 1
Indication: Other (SIRS)
Requesting Provider: EBEN
Height / Weight:
Height 5 ft 8 in
Actual Weight 64.5 kg
- Vital Signs / Lab Results
Temp Pulse Resp BP Pulse Ox
98.6 F 99 19 108/69 97
10/23/24 19:05 10/23/24 20:00 10/23/24 20:00 10/23/24 20:00 10/23/24 20:00
Lab Results - Hematology
10/23/24
13:05
WBC 13.9 H
Lab Results - Chemistry
10/23/24
13:05
BUN 16
Creatinine 1.0
Estimated Creat Clear 61
Albumin 3.2 L
10/23/24
13:11
Lactic Acid 1.7
Lab Results - Urine
10/23/24
13:05
Urine Nitrite (Reflex) Negative
Leukocyte Esterase Rfl Negative
Urine WBC (Reflex) 0-2
Ur Squamous Epith Cells 0-2
Microbiology Results
10/23/24 13:05 Influenza Types A & B (ALESSANDRA) - Final
Nasal Swab Negative for Influenza A & B, NAAT
Negative results must be combined with clinical observations
and patient history.
Nucleic Acid Amplification test (NAAT)performed on the
[employer] platform.
[2024-10-23] MEDS: OMNIPAQUE 960 ML PO (21:08)
[2024-10-23] MEDS: ELAVIL 30 MG PO (21:50)
[2024-10-23] MEDS: LIPITOR 40 MG PO (21:50)
[2024-10-23] MEDS: REFRESH EYE DROPS (PF) 1 DROPS BOTH EYES (21:51)
[2024-10-23] MEDS: NEURONTIN 400 MG PO (21:51)
[2024-10-23] MEDS: ZOSYN 50 IV (21:51)
[2024-10-23] MEDS: FLOVENT 44 MCG INHALER INH (22:04)
[2024-10-23 22:52] LABS: Cortisol, Random 25.3 ug/dl
--- NOTE | 2024-10-23 22:53 | PTCARENOTE ---
Received pt from ED RN. Pt is AAOx2 (place), forgetful/confused. Sinus tach on the monitor. On RA O2 sat 95%, lungs clear. C/c in place. NS infusing @ 100 ml/hr. CHG bath provided. Pt is laying in bed with call ha in reach.
[2024-10-23] MEDS: HYDROCORTONE/CORTEF 50 MG PO (23:04)
[2024-10-24] VITALS (12 sets, daily range): BP systolic 95–132; BP diastolic 61–83; BMI 22.3
--- NOTE | 2024-10-24 00:01 | PTCARENOTE ---
Pt sent up from the ER w/ PO contrast. Pt taken to CT for abd/pel @ 8484.
[2024-10-24] MEDS: ZOSYN 50 IV ×4 (03:52→22:51)
[2024-10-24 04:28] LABS: Hematocrit 24.4 % (39.0-52.0); Hemoglobin 7.7 g/dL (13.0-18.0); Mean Corp Hgb Conc. 31.6 g/dL (33.0-37.0); Mean Corpuscular Hgb 27.1 pg (27.0-31.0); Mean Corpuscular Volume 85.9 fL (80.0-94.0); Platelet Count 587 10^3/uL (130-400); Red Blood Cell Count 2.84 10^6/uL (4.70-6.10); Red Cell Dist. Width 15.1 % (11.5-14.5); White Blood Cell Count 12.2 10^3/uL (4.8-10.8)
[2024-10-24 04:34] LABS: ALT (SGPT) 13 U/L (0-50); AST (SGOT) 30 U/L (17-59); Albumin 2.8 g/dl (3.5-5.0); Alkaline Phosphatase 145 U/L (38-126); Blood Urea Nitrogen 11 mg/dl (9-20); Calcium 9.1 mg/dl (8.4-10.2); Carbon Dioxide 20 mmol/L (22-30); Chloride 101 mmol/L (98-107); Estimated Creatinine Clearance 79 ml/min; Glucose 104 mg/dl (70-99); Magnesium 1.9 mg/dl (1.6-2.3); Phosphorus 4.5 mg/dl (2.5-4.5); Potassium 4.3 mmol/L (3.5-5.1); Sodium 133 mmol/L (135-145); Total Bilirubin 0.9 mg/dl (0.2-1.3); Total Protein 5.6 g/dl (6.3-8.2); Uric Acid 4.5 mg/dl (3.5-8.5); eGFR > 60.00
[2024-10-24] MEDS: SYNTHROID 150 MCG PO (05:21)
[2024-10-24] MEDS: VANCOCIN 275 MG IV (05:21)
[2024-10-24 05:52] LABS: Osmolality Serum 271 mOsm/kg (275-300)
[2024-10-24 05:52] LABS: Osmolality Urine 232 mOsm/kg (300-900)
[2024-10-24 05:57] LABS: Urine Sodium 42 mmol/L (30-90)
[2024-10-24] MEDS: NSS 1000 IV ×2 (08:02→21:26)
[2024-10-24] MEDS: SPIRIVA RESPIMAT 2.5 MCG 2 PUFF INH (08:03)
[2024-10-24] MEDS: MAGNESIUM OXIDE 500 MG PO ×2 (08:03→19:41)
[2024-10-24] MEDS: NEURONTIN 400 MG PO ×3 (08:04→22:53)
[2024-10-24] MEDS: REFRESH EYE DROPS (PF) 1 DROPS BOTH EYES ×2 (08:04→22:53)
[2024-10-24] MEDS: STRIVERDI RESPIMAT 2 PUFF INH (08:04)
[2024-10-24] MEDS: PEPCID 20 MG PO ×2 (08:04→19:41)
[2024-10-24] MEDS: HYDROCORTONE/CORTEF 50 MG PO ×3 (08:04→23:35)
[2024-10-24] MEDS: FLOVENT 44 MCG INHALER 2 PUFF INH ×2 (08:04→20:17)
[2024-10-24] MEDS: VITAMIN D3 (cholecalciferol) 25 MCG PO (08:04)
[2024-10-24] MEDS: VITAMIN B-12 1000 MCG PO (08:04)
[2024-10-24] MEDS: PROTONIX 40 MG PO (08:04)
[2024-10-24] MEDS: VITAMIN B1 100 MG PO (08:04)
--- NOTE | 2024-10-24 08:28 | VNURNOTE ---
Chart reviewed. Patient was current w/ [facility] before previous hospitalization. His chart has been on hold with [facility] due to going to SNF. [facility] to continue to follow hospitalization and DC plans.
--- NOTE | 2024-10-24 08:31 | PTCARENOTE ---
pt awake oriented to self. forgetful. anxious. pt inc or urine and stool. condom cath on pt. ivf running as ordered.
[2024-10-24 09:23] LABS: Reticulocyte Count 2.8 % (0.4-2.8)
[2024-10-24 09:24] LABS: Iron 44 ug/dl (49-181)
[2024-10-24 09:33] LABS: Percent Saturation 21 % (20-50); Total Iron Binding Capacity 204 ug/dl (261-462)
--- NOTE | 2024-10-24 09:38 | PHA.VAN.FU ---
Vancomycin Assessment / Plan
- Assessment
Renal Function: SCR Decreasing
WBC's are: Trending Down
Concomitant Antimicrobials: piperacillin/tazobactam
- Dosing Plan
Adjust Regimen to: Vanc 750mg Q12H starting at 1800
New Regimen Predicts: AUC (473), Peak (28.1), Trough (13)
Dosing Comments: SCR improving
- Monitoring Plan
No level(s) ordered at this time: consider levels in next few days
- Follow Up
Pharmacy will continue to follow.
Vancomycin Follow UP
- -
Patient Age: 74
Patient Sex: Male
Vancomycin Day #: 2
Indication: Other
Requesting Provider: Dr. Lowe (resident)
Pertinent Antimicrobial Allergies:
NKDA
Height / Weight:
Height 5 ft 8 in
Actual Weight 66.6 kg
- Vital Signs / Lab Results
Temp Pulse Resp BP Pulse Ox
97.4 F 98 18 109/76 95
10/24/24 08:17 10/24/24 08:21 10/24/24 08:21 10/24/24 08:00 10/24/24 08:21
Lab Results - Hematology
10/23/24 10/24/24
13:05 03:51
WBC 13.9 H 12.2 H
Lab Results - Chemistry
10/23/24 10/24/24
13:05 03:51
BUN 16 11
Creatinine 1.0 0.8
Estimated Creat Clear 61 79
Albumin 3.2 L 2.8 L
10/23/24
13:11
Lactic Acid 1.7
Lab Results - Urine
10/23/24
13:05
Urine Nitrite (Reflex) Negative
Leukocyte Esterase Rfl Negative
Ur Squamous Epith Cells 0-2
Microbiology Results
10/24/24 03:46 C. difficile GDH Antigen & Toxins - Final
Feces/Stool Negative for toxigenic C.difficile
10/23/24 13:05 Influenza Types A & B (ALESSANDRA) - Final
Nasal Swab Negative for Influenza A & B, NAAT
Negative results must be combined with clinical observations
and patient history.
Nucleic Acid Amplification test (NAAT)performed on the
[employer] platform.
--- NOTE | 2024-10-24 10:06 | CON.ID ---
Consultation
-
Date/Time Consultation Requested: October 23, 20241957
Date/Time Consultation Performed: October 24, 2024 1000
Requesting Provider: Dr. Roseline Lowe
Performing Provider: Dr. Valencia Victoria
Reason for Consultation: SIRS
Chief Complaint / Past History
Chief Complaint
Change in mental status
History of Present Illness
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 On April 05, 2024, he had a challenge of
the Opdualag which he tolerated poorly. He was placed on vedolizumab, then resumed Opdualag which he received on June 14, July 12, and August 11, 2024. Since then he has had multiple hospitalizations here for confusion, diffuse pain,
and/or failure to thrive. He was recently discharged to SNF. He was brought back to the hospital October 23 for confusion. In the ER he was febrile 101.9, white count of 13.9. Lactic acid normal. COVID-negative. Influenza negative. UA no
pyuria. Chest x-ray no acute change. CT of the abdomen pelvis shows mild sigmoid wall thickening. He is currently on vancomycin and Zosyn. Patient notes poor memory. He has to write everything down. He continues to have diffuse joint pains
which is chronic. The previous right calf hematoma has improved. He continues to have diarrhea which is chronic. No nausea or vomiting. No abdominal pain. No cough or shortness of breath. No chest pain. No urine symptoms. No flank pain. Has
constant headache which is not new. No sinus congestion or sore throat.
Past History
Additional Past Medical History:
Left chest wall melanoma with metastasis to LN, lungs on monthly Opdualag (side effects mental status change, joint pains, diarrhea, neuropathy)
COPD
Hypothyroidism
HFpEF
GERD
Adrenal insufficiency on steroid
Peripheral neuropathy
Chronic diarrhea
Chronic headaches/migraine
Chronic joint pains
Chronic pain
Right calf hematoma
Melanoma excision and LN dissection
Hernia repair x 2
Additional Past Surgical History:
(hernia repair )
Allergy History:
No Known Allergies Allergy (Verified 10/06/24 19:35)
Medications Reviewed: Yes
Current Antibiotics:
Zosyn
Vancomycin
Hydrocortisone 40mg po tid
Social History
Tobacco: Former Smoker (Quit 2021)
Alcohol: Former
Drug: None
Living: Group Home
Family History
Family History: Not Pertinent
Review of Systems
Review of Systems
General: Fever and Change in Appetite
HEENT: Headache; Negative Sinus Problems
Cardiovascular: Negative Chest Pain, Dyspnea or Edema
Respiratory: Negative Dyspnea or Cough
Gasteroenterology: Diarrhea and Other (no abd pain); Negative Nausea or Vomiting
Genital / Urological: Negative Dysuria or Flank Pain
Endocrine: Weakness
Musculoskeletal: Arthralgias (diffuse)
Skin / Hair / Nails: Negative Rash
All systems: All other systems were reviewed and were negative
Vital Signs
Temp Pulse Resp BP Pulse Ox
97.4 F 98 18 109/76 95
10/24/24 08:17 10/24/24 08:21 10/24/24 08:21 10/24/24 08:00 10/24/24 08:21
Selected Entries
10/23/24
13:12
Temp 101.9 F H
Physical Exam
Physical Exam
Constitutional: Chronically Ill
Head: Other (No frontal or max or sinus tenderness)
Eyes: No Conjunctival Hemorrhage and Sclera Anicteric
Pharynx: Benign
Oral: No Thrush and Other (Edentulous)
Cardiovascular: Regular Rate and S1/S2
Pulmonary: Clear
Gastrointestinal: Soft, Non Tender, Non Distended and Normal Bowel Sounds
Genito-Urinary: Negative CVA Tenderness
Extremities: Negative Edema
Musculoskeletal: Negative Joint Swelling or Joint Effusion
Neurological: Awake, Alert, AO x 3 and Other (Poor recall); Negative Meningeal Signs
Lab / Diagnostic Study Results
10/24/24 03:51
10/24/24 03:51
Abs Immat Gran (auto) 0.2 10^3/uL (0-0.05) H 10/23/24 13:05
Absolute Neuts (auto) 10.5 10^3/uL (1.4-6.5) H 10/23/24 13:05
Absolute Lymphs (auto) 1.7 10^3/uL (1.2-3.4) 10/23/24 13:05
Absolute Monos (auto) 1.3 10^3/uL (0.1-0.6) H 10/23/24 13:05
Absolute Basos (auto) 0.1 10^3/uL (0-0.2) 10/23/24 13:05
Immature Gran % 1.7 % (0-0.5) H 10/23/24 13:05
Neutrophils % 75.6 % (42.2-75.2) H 10/23/24 13:05
Lymphocytes % 12.0 % (20.5-51.1) L 10/23/24 13:05
Monocytes % 9.4 % (1.7-9.3) H 10/23/24 13:05
Eosinophils % 0.9 % (0-6) 10/23/24 13:05
Basophils % 0.4 % (0-2) 10/23/24 13:05
Lactic Acid 1.7 mmol/L (0.7-2.0) 10/23/24 13:11
Ur Squamous Epith Cells 0-2 /LPF (Few) 10/23/24 13:05
Microbiology Results
Micro:
10/24/24 03:46 C. difficile GDH Antigen & Toxins - Final
Feces/Stool Negative for toxigenic C.difficile
10/23/24 22:13 Blood Culture - Pending
Blood/Venous
10/24/24 03:46 Salmonella/Shigella Culture - Pending
Feces/Stool Campylobacter Culture - Pending
Shiga Toxin Test - Pending
10/23/24 22:25 MRSA Screen - Pending
Nose
10/23/24 21:11 Blood Culture - Pending
Blood/Venous
10/23/24 13:05 Influenza Types A & B (ALESSANDRA) - Final
Nasal Swab Negative for Influenza A & B, NAAT
Negative results must be combined with clinical observations
and patient history.
Nucleic Acid Amplification test (NAAT)performed on the
[employer] platform.
10/23/24 CT a/p: Suspected mild sigmoid wall thickening, possibly representing acute colitis.
10/23/24 CXR: No radiographic evidence of acute cardiopulmonary abnormality.
Assessment / Plan
# Fever x 1 resolved
# Leukocytosis - on steroid
- UA neg, COVID/Flu neg, CXR neg. C. diff neg.
- DC Vancomycin.
- If blood cx's neg, dc Zosyn
# Suspect immune-system related side effects of recent immunotherapy Opdualag.
-Pt previously known to have severe side effects, held for 8 months, then resumed monthly in May 2024, ?last received 08/11/24.
Adverse reactions include musculoskeletal pain, adrenal insufficiency, thyroid disorder, diarrhea, enteritis/colitis, vasculitis, autoimmune neuropathy, ocular toxicity, confusion/memory problems - all of which this patient has been experiencing
for the past month and longer.
- Consider long steroid taper.
[2024-10-24 10:32] LABS: Folate 10.2 ng/ml (2.76-20); Vitamin B12 829 pg/ml (239-931)
--- NOTE | 2024-10-24 10:35 | CON.GI ---
Addendum entered and electronically signed by Mary Sykes MD 10/24/24 15:04:
I saw and examined the patient.
The STATE WILDLIFE OFFICER's note was reviewed and I agree with the note.
Comment: This is a 74-year-old male with past medical history as listed below including adrenal insufficiency on chronic steroids, chronic pain on chronic opiates and metastatic melanoma who was receiving immunotherapy and rest of medical history as
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 His LFTs this admission are mostly normal except for elevated alkaline phosphatase
level. We had seen him during his prior admission in July 2024 for symptoms of abdominal pain, bloating and diarrhea. prior to that he also had vision changes and was treated with high-dose steroids for possible side effects or reaction from
immunotherapy. He also recently had an admission for pneumonia and TME which improved after the infection was treated. He now presents with altered mental status from [place] and was also noted to have fever with and is undergoing sepsis
workup. He also had diarrhea and stool studies are negative for C. difficile and norovirus. On admission CT also shows probable colitis. He says his symptoms do alternate between diarrhea and constipation but patient is also confused and history
is limited. No reported rectal bleeding. Usually follows up at [facility]. His last colonoscopy here in [address] Holden and he had multiple colon polyps removed which were tubulovillous adenoma and tubular adenomas and he says that he did
have his last colonoscopy maybe about 2 years ago at [facility] and a sigmoidoscopy in April 2024 when he was diagnosed with immune mediated colitis and then was started vedolizumab in May 2024.
Assessment and plan he does have chronic intermittent episodes of diarrhea but symptoms also alternates with constipation. CT this admission shows probable colitis stool cultures are pending negative for C. difficile and negative for norovirus. He
also is currently undergoing sepsis workup for fever. He does have prior imaging showing gallstones but currently abdomen is nontender doubt cholecystitis. He is currently on Zosyn. Will also add probiotics. As described above he also has a
history of immune mediated colitis we need to get records from [facility] whether he is still on vedolizumab for this and is also unclear when his last Immunotherapy was. May need to get further information from his oncologist at [facility].
Also has anemia and iron studies are more consistent with anemia of chronic disease currently has no overt bleeding.
History of tubulovillous adenoma and tubular adenomas in 2013 but he says that he has been getting surveillance colonoscopies at [facility] since then and the last one was about 2 years ago per patient.
Original Note:
Consultation
-
Date/Time Consultation Requested: 10/24/24929
Date/Time Consultation Performed: 10/24/24 1030
Requesting Provider: Tyrese Rai MD
Performing Provider: CÉSAR Coley, Mary Sykes MD
Reason for Consultation: diarrhea/anemia
Medical History
Chief Complaint / HPI
Chief Complaint: Abdominal pain and diarrhea
History of Present Illness:
Shreyas is a 74-year-old male with history of metastatic melanoma to the lungs,s/p resection, axillary LN dissection,recurrence and started on immunotherapy at [facility] Dr. Lauri Perales with Opdualag (started may 2023, last dose August 11,
2023) -multiple side effects including headaches, myositis and neuropathy and , history of adrenal insufficiency on chronic steroids. In review of chart pt with multiple admission in last few months. In mid July admitted after 3 dose of restart
of immunotherapy 08/11 with body ache/joint pain, chest pain and redness in eyes with blurred vision with concern for ICI toxicity. Pt was treated with high dose steroids. Ct during admission with new mild stranding prominent nodes with
duodenal/proximal jejunal enteritis vs mesenteric panniculitis. Pt was discharged 08/15 with return 08/17 with confusion and abdominal pain. Pt was seen by GI that admission with noted gallstones, bloating with ileus, chronic Oxycodone use. he
was due to get Vedolizumab in August at [facility]. He was treated with simethacone, PPI, minimizing narcotics, ambulation and supportive care. PT was discharged 08/28. He has several further admission in August to September with LE swelling
with ortho eval low risk for abscess possible ruptured main's cyst vs hematoma. 09/14 with failure to thrive and diarrhea with noted social issues discussed during admission. 10/06 with knee pain and confusion with PNA/sepsis and now returns with
confusion sepsis of unclear etiology. On admission fever 101.9, WBC 13,900, hbg 8.4, platelets 628 Na 129, alk phos 164 with otherwise normal LFT's, albumin 3.2. He is noted with diarrhea since admission with c-diff neg other cx pending. Repeat CT
on admission with concern for colitis with sigmoid wall thickening.
In review with patient he is still noted with confusion and unable to given detailed history. Per chart multiple stools since admission. He does admits to some vague abdominal pain. He otherwise denies dysphagia, GERD, nausea, vomiting, or
bleeding. Last colonoscopy at 2013 with multiple polyps - TA, HP, TVA polyps on path. He report having further follow up colonoscopies at [facility] last about 2 years ago and per prior noted Flexible sigmoidoscopy at [facility]
April 2024, erythema in the left colon, biopsies showing chronic active colitis suggesting immune mediated colitis.
Past Medical History
Past Medical History: CAD, Cancer (melanoma with lung mets ), COPD, GERD, HTN, Hypercholesterolemia, Hypothyroidism and Other (Metastatic melanoma status postresection and axillary lymph node dissection, adrenal insufficiency, prior ETOH use, PNA,
neuropathy, hx c-diff )
Past Surgical History: Other (Excision of melanoma and inguinal hernia repairs)
Social History
Tobacco: Former Smoker
Alcohol: Former (prior heavy ETOH use )
Drug: Marijuana (occasional )
Personal: Single
Living: Alf
Employment: Retired
Family History
Family History: Reviewed & Not Pertinent
Allergies / Home Medications
Allergy/AdvReac Type Severity Reaction Status Date / Time
No Known Allergies Allergy Verified 10/06/24 19:35
�Medication �Instructions �Recorded
hydrocortisone 10 mg tablet 10 mg PO DAILY Anti-Inflammatory 11/20/23
pantoprazole 40 mg tablet,delayed 40 mg PO DAILY Gastrointestinal 11/20/23
release (Protonix) Issue
umeclidinium 62.5 mcg-vilanterol 1 inh inhalation R DAILY 11/20/23
25 mcg/actuation powdr for Lung/Breathing Issues
inhalation (Anoro Ellipta)
cholecalciferol (vitamin D3) 25 25 mcg PO DAILY Supplement 03/08/24
mcg (1,000 unit) tablet (Vitamin
D3)
albuterol sulfate 90 mcg/actuation 2 puff inhalation R Q4HPRN PRN sob 08/10/24
aerosol inhaler
atorvastatin 40 mg tablet 40 mg PO HS High Cholesterol 08/10/24
cyanocobalamin (vitamin B-12) 1,000 mcg PO DAILY Supplement 08/10/24
1,000 mcg tablet
carvedilol 3.125 mg tablet (Coreg) 3.125 mg PO BID Blood Pressure 08/17/24
famotidine 20 mg tablet 20 mg PO BID Gastrointestinal Issue 09/14/24
levothyroxine 150 mcg tablet 150 mcg PO DAILY@0600 Thyroid 09/14/24
polyethylene glycol 3350 17 gram 17 g PO DAILYPRN PRN constipation 09/14/24
oral powder packet
polyvinyl alcohol-povidone (PF) 1 drops BOTH EYES QID Eye Condition 09/14/24
1.4 %-0.6 % eye drops in a
dropperette (Refresh Classic (PF))
furosemide 40 mg tablet (Lasix) 20 mg (1/2 x 40 mg) PO DAILY Fluid 09/19/24
Retention/Swelling #0 tabs
fluticasone furoate 100 1 inh inhalation R DAILY Allergies 10/06/24
mcg/actuation blister powder for
inhalation
loperamide 2 mg tablet 2 mg PO Q4HPRN PRN diarrhea 10/06/24
magnesium hydroxide 400 mg/5 mL 2,400 mg PO [id number] PRN no bm x3 10/06/24
oral suspension (Milk of Magnesia) days
magnesium oxide 400 mg PO DAILY Supplement 10/06/24
magnesium oxide 500 mg PO BID Supplement 10/06/24
potassium chloride 20 mEq 40 meq PO DAILY Supplement 10/06/24
tablet,extended release
thiamine HCl (vitamin B1) 100 mg 100 mg PO DAILY Supplement 10/06/24
tablet
amitriptyline 10 mg tablet 30 mg (3 x 10 mg) PO HS Mental 10/10/24
Health/Anxiety #0 tabs
gabapentin 400 mg capsule 400 mg PO TID #90 caps 10/10/24
oxycodone 5 mg tablet 5 mg PO Q4HPRN PRN moderate-severe 10/10/24
pain #10 tabs
acetaminophen 325 mg tablet 650 mg PO Q6HPRN PRN mild pain 10/23/24
Review of Systems
-
Unable to obtain full review of systems at this time due to: Other (confusion)
History Source: Patient
Constitutional: Reports No Symptoms and Other (weight within 5 kg last few months )
EENT: Reports No Symptoms
Respiratory: Reports Trouble Breathing (at times)
Cardiac: Reports No Symptoms
Abdomen/GI: Reports Abdominal Pain and Diarrhea
: Reports No Symptoms
Musculoskeletal: Reports Joint Pain
Skin: Reports No Symptoms
Neurological: Reports Weakness and Other (confusion)
Endocrine: Reports No Symptoms
Hematologic/Lymphatic: Reports Bleeding
Vital Signs
Temp Pulse Resp BP Pulse Ox
97.4 F 98 18 109/76 95
10/24/24 08:17 10/24/24 08:21 10/24/24 08:21 10/24/24 08:00 10/24/24 08:21
Physical Exam
Exam
General: Other (confused but conversant )
HEENT: Normocephalic and Anicteric
Respiratory: Clear
Cardiac: Regular Rhythm
GI: Soft, Non Distended and Tender (mild diffuse )
Musculoskeletal: No Clubbing and No Cyanosis
Skin: Warm and Dry
Neuro: Awake, Alert and Other (confused)
Psych: Calm
Results
WBC 12.2 10^3/uL (4.8-10.8) H 10/24/24 03:51
Hgb 7.7 g/dL (13.0-18.0) L 10/24/24 03:51
Hct 24.4 % (39.0-52.0) L 10/24/24 03:51
MCV 85.9 fL (80.0-94.0) 10/24/24 03:51
Plt Count 587 10^3/uL (130-400) H 10/24/24 03:51
Absolute Neuts (auto) 10.5 10^3/uL (1.4-6.5) H 10/23/24 13:05
Sodium 133 mmol/L (135-145) L 10/24/24 03:51
Potassium 4.3 mmol/L (3.5-5.1) 10/24/24 03:51
Chloride 101 mmol/L (98-107) 10/24/24 03:51
Carbon Dioxide 20 mmol/L (22-30) L 10/24/24 03:51
BUN 11 mg/dl (9-20) 10/24/24 03:51
Creatinine 0.8 mg/dL (0.7-1.3) 10/24/24 03:51
Calcium 9.1 mg/dl (8.4-10.2) 10/24/24 03:51
Total Bilirubin 0.9 mg/dl (0.2-1.3) 10/24/24 03:51
AST 30 U/L (17-59) 10/24/24 03:51
ALT 13 U/L (0-50) 10/24/24 03:51
Alkaline Phosphatase 145 U/L (38-126) H 10/24/24 03:51
Diagnostic Image Results:
08/21/24 CT A/p with IV and oral
IMPRESSION: Wall thickening involving proximal to mid small bowel loops, suggesting enteritis, which appears to be slightly improved from most recent CT of August 17, 2024.
There is also subtle suggestion of wall thickening involving the colon, mainly the right colon and the transverse colon, suggestive of colitis.
Wall thickening involving the sigmoid colon, which could be from inflammatory colitis versus diverticulosis.
No evidence for bowel obstruction. No evidence of free intraperitoneal air.
Not mentioned above, the appendix is visualized and appears normal.
Single gallstone is present in the posterior aspect of the gallbladder. No CT findings discussed acute cholecystitis. No evidence of biliary ductal dilation.
In the visualized superior scrotum, suggestion of a large right hydrocele, not fully included on the [id number] of this examination.
Bony degenerative changes as described. Small circular lytic lesions within the spine, most likely related to subchondral degenerative changes. Compression deformity of L1, stable from recent examination of August 17, 2024.
10/23/24 CT Abd/pel W Iv And Oral Contr
Suspected mild sigmoid wall thickening, possibly representing acute colitis.
Trace hyperdensity dependently in in the rectum may be due to oral contrast. Active GI bleed less likely.
Scrotum incompletely included on this study with likely right hydrocele.
Prior GI Procedures:
EGD: pt unsure of prior
Colonoscopy:
Colonoscopy: [address] Holden, multiple tubular adenomas and tubulovillous adenomas removed from the sigmoid colon and rectum.
Flexible sigmoidoscopy at [facility] April 2024, erythema in the left colon, biopsies showing chronic active colitis suggesting immune mediated colitis.
Assessment / Plan
-
Shreyas is a 74-year-old male with history of metastatic melanoma to the lungs,s/p resection, axillary LN dissection,recurrence and started on immunotherapy at [facility] Dr. Lauri Perales with Opdualag (started may 2023, last dose August 11,
2023) -multiple side effects including headaches, myositis and neuropathy and history of adrenal insufficiency on chronic steroids. In review of chart pt with multiple admission in last few months. In mid July admitted after 3 dose of restart
of immunotherapy 08/11 with body ache/joint pain, chest pain and redness in eyes with blurred vision with concern for ICI toxicity. Pt was treated with high dose steroids. Ct during admission with new mild stranding prominent nodes with
duodenal/proximal jejunal enteritis vs mesenteric panniculitis. Pt was discharged 08/15 with return 08/17 with confusion and abdominal pain. Pt was seen by GI that admission with noted gallstones, bloating with ileus, chronic Oxycodone use. he
was due to get Vedolizumab in August at [facility]. He was treated with simethacone, PPI, minimizing narcotics, ambulation and supportive care. PT was discharged 08/28. He has several further admission in August to September with LE swelling
with ortho eval low risk for abscess possible ruptured main's cyst vs hematoma. 09/14 with failure to thrive and diarrhea with noted social issues discussed during admission. 10/06 with knee pain and confusion with PNA/sepsis and now returns with
confusion sepsis of unclear etiology. On admission fever 101.9, WBC 13,900, hbg 8.4, platelets 628 Na 129, alk phos 164 with otherwise normal LFT's, albumin 3.2. He is noted with diarrhea since admission with c-diff neg other cx pending. Repeat CT
on admission with concern for colitis with sigmoid wall thickening.
-sepsis with fever, leukocytosis
-diarrhea
-mild abdominal pain
-CT with sigmoid colitis
-confusion with concern for encephalopathy
-electrolyte imbalance
-thrombocytosis
-adrenal insufficiency on steroids
-anemia
-thrombocytosis
-metastatic melanoma to met to lung, LN dissection with prior immunotherapy
-adrenal insufficiency
-hx heavy ETOH and tobacco use
-hx c-diff within last year
PLAN:
etiology of sepsis with continued confusion with recent Immunotherapy complication related to GI source with colitis, diarrhea, vs continued issue related to ICI toxicity with immunotherapy
per noted pt was to go for further Vedolizumab therapy in August but per friend has not returned
c-diff neg with hx c-diff within last year await other cx
will consult oncology to review case- to see if immunotherapy toxicity still playing a role- ? need to resume vedo
will review with dr. Sykes need to do flex
cont to monitor stools
cont abx per ID
I spoke with friend Chandni did not feel he returned to [facility] since July-- she did review goals of care with patient with palliative care a few days and pt was not ready for hospice
reviewed with Dr. Blancas
-
-
Thank you for consultation and allowing me to participate in the patient's care. Please call the employee relations assistant GI physician during the after hours with any questions or concerns.
--- NOTE | 2024-10-24 11:26 | CM ---
Addendum entered by Maegan Chaudhry 10/24/24 16:17:
Patient is LTC, Patient asking for switch to [facility] per Liaison. The facility will work with patient to switch him after he is back at SNF.
Original Note:
Patient seen at bedside with physicians. Patient is currently at [facility]. Per liaison she is checking to confirm status. Patient stated that he plans to return. CM will call to family to confirm plan. CM will continue to follow for discharge
planning needs.
Plan; return to SNF; pending liaison update
--- NOTE | 2024-10-24 11:59 | W.PN.HOSP.TC ---
Addendum entered and electronically signed by Carolyn Blancas MD 10/24/24 16:17:
I saw and evaluated the patient independently. I reviewed the resident�s note and agree with findings and plan as documented by Dr. Lowe.
GENERAL: well developed, well nourished, male in no apparent distress--knows he is hallucinating and confused although improved today
HEENT: NC/AT--no specific nuchal rigidity
HEART: regular rate and rhythm, +S1, +S2
LUNGS : clear to auscultation bilaterally
ABDOM: soft, nontender, nondistended, + bowel sounds
EXT: no cyanosis, clubbing, or edema--bilateral shoulders/knees/elbows are warm to touch and hurt to move but better
NEUROLOGIC: grossly intact
SKIN: no rashes appreciated
Sepsis but source unclear--CXR neg, head CT neg, UA neg, Covid/Flu neg--pt does admit to diarrhea (colitis/enteritis) CT scan A/P confirms possibly acute colitis, diffuse joint pain likely reactive but consider endocarditis, await ECHO--with
confusion consider LP, pt improved, will defer for now--apprec ID-- Lyme pending and uric acid WNL--cont vanco/zosyn--await culture--cont IVF--hold diuretics
Encephalopathy--Likely toxic metabolic encephalopathy secondary to infection. Medication adverse effect is a possibility--Pt does report hallucinations--Apprec Psych
Electrolyte abnormality--Hyponatremia with Hyperkalemia--lends towards adrenal insufficiency--stress dose hydrocortisone -- follow labs--cont IVF
Diarrhea--pt has had in past thought to be due to immune reaction from immune therapy-- stool studies pending--has been off therapy--hold loperamide
Thrombocytosis--Likely reactive--Follow CBC
Polyarthritis--Could be reactive, or part of infectious process--Continue IV abx
Adrenal insufficiency--On hydrocortisone 10mg daily at home. Will stress dose 50mg L5U--Gppk diuretics and antihypertensive
COPD without exacerbation-- Continue Anoro ellipta
GERD-- Cont PPI
Essential HTN-- Holding antihypertensives
Melanoma plus lung mets--off immune therapy--followed at [facility]
Alcohol use disorder--Last drink 8 months ago
Peripheral neuropathy--Continue amitriptyline and gabapentin
Chronic anemia--Stable at this time, follow CBC
Chronic headaches--As needed Tylenol
Nephrolithiasis
DVT prophy--Lovenox
CODE STATUS--Full code--believe was seen by Palliative care in a past admission
all above could be due to reaction from immune therapy Opdualag
Original Note:
Today's Communication/Plan
-
Continue IV abx, stress dose steroids
Assessment / Plan
Assessment / Plan
IMPRESSION: 74 year old male with adrenal insufficiency and other PMH who presents with SIRS with unknown source, encephalopathy, thrombocytosis, electrolyte abnormalities, and polyarthritis.
PLAN:
SIRS:
Leukocytosis, tachycardia, fever. Yet to find source. Admit to IMU
Chest x-ray with no acute abnormalities. Head CT with no acute abnormalities
Urinalysis normal, lactic acid normal, COVID/flu negative
Pt reports diarrhea and polyarthritis
Abd/pel CT: Suspected mild sigmoid wall thickening, possibly representing acute colitis. Trace hyperdensity dependently in in the rectum may be due to oral contrast. Active GI bleed less likely.
-Await echo, and Lyme
-Infectious disease consult
-GI consult
-Continue Vanc and Zosyn
-Continue IVF, hold diuretics, and carvedilol while pressures are low/borderline
Encephalopathy:
Likely toxic metabolic encephalopathy secondary to infection. Ongoing today. Medication adverse effect is a possibility
Pt does report hallucinations
-Psych consult
Electrolyte abnormality:
Hyponatremia with Hyperkalemia
-History of adrenal insufficiency, will stress dose hydrocortisone
-Continue IVF
-Hold home potassium chloride
-Check sodium labs
Diarrhea:
Patient frequently alternates between diarrhea and constipation, however he complains currently of diarrhea. Chronic diarrhea hx which patient attributed to immune therapy which has since ronaldo discontinued, yet diarrhea persists.
-Await stool studies
-Hold loperamide
Thrombocytosis:
Likely reactive
-Follow CBC
Polyarthritis:
Could be reactive, or part of infectious process.
-Continue IV abx
-Check uric acid, lyme
Chronic anemia:
Steady decline from normal in hgb since 07/2024
Pt denies black/bloody stool
-Will check iron studies, folate/B12, retic count
Adrenal insufficiency:
-On hydrocortisone 10mg daily at home. Potentially underdosed (will refer to history for steroid course). Will stress dose 50mg Q6H
-Hold diuretics and antihypertensive
Other problems:
COPD: Continue Anoro ellipta
GERD: COnt PPI
HTN: Holding antihypertensives
CAD
Melanoma plus lung mets
Alcohol use disorder: Last drink 8 months ago
Peripheral neuropathy: Continue amitriptyline and gabapentin
Chronic anemia: Stable at this time, follow CBC
Chronic headaches: As needed Tylenol
Nephrolithiasis
DVT prophylaxis: Lovenox
CODE STATUS: Full code
Anticipated Discharge: > 48 hours
Subjective/Interval History
-
Date of Service: October 24, 2024
Improvement in joint aches
Objective Data
-
Labs:
Laboratory Results
10/24/24
03:51
WBC 12.2 H
Hgb 7.7 L
Hct 24.4 L
Plt Count 587 H
Sodium 133 L
Potassium 4.3
Chloride 101
Carbon Dioxide 20 L
BUN 11
Creatinine 0.8
Glucose 104 H
Calcium 9.1
Total Bilirubin 0.9
AST 30
ALT 13
Alkaline Phosphatase 145 H
Vital Signs:
Vital Signs
Temp Pulse Resp BP Pulse Ox
97.4 F 98 18 109/76 95
10/24/24 08:17 10/24/24 08:21 10/24/24 08:21 10/24/24 08:00 10/24/24 08:21
I&O
10/23/24 10/24/24 10/25/24
06:59 06:59 06:59
Intake Total 2074
Output Total 1409 / 141
Balance 5 /
Review of Systems
-
Unable to obtain full review of systems at this time due to: Acuity
History Source: Patient
Constitutional: Denies No Appetite
Respiratory: Denies Trouble Breathing
Cardiac: Denies Chest Pain
Abdomen/GI: Reports Diarrhea; Denies Abdominal Pain, Nausea, Vomiting, Bloody Stools, Black Stools or Anorexia
Psych: Reports Other (confused)
Physical Exam
-
General: Well Developed and No Apparent Distress
HEENT: Normocephalic and Atraumatic; Negative Good Dentition
Respiratory: Clear to Auscultation and Non Labored Respirations; Negative Wheezes, Rales, Rhonchi or Crackles
Cardiac: Regular Rhythm and S1/S2; Negative Murmur, Rub or Calf Tenderness
GI: Soft, Nontender, Nondistended and Normal Bowel Sounds
Musculoskeletal: No Clubbing, No Cyanosis and No Edema
Skin: Warm, Dry and Normal Turgor; Negative Rash or Ulcers
Neuro: Awake, Alert and Oriented (to person and circumstance)
Psych: Confused
[2024-10-24] MEDS: ROXICODONE 5 MG PO (12:10)
--- NOTE | 2024-10-24 12:55 | PTCARENOTE ---
pt orientation improving able to answer questions. pt is now anxious with cares. asking repetitive questions. able to walk to bathroom with walker.
[2024-10-24] MEDS: REFRESH EYE DROPS (PF) BOTH EYES ×2 (13:25→18:10)
[2024-10-24] MEDS: TYLENOL 650 MG PO (13:25)
--- NOTE | 2024-10-24 13:57 | CS.PSYCHR ---
Consult Summary - Psychiatry
-
pt is a 74 yo male with hx of adrenal insufficiency, hypothyroidism, melanoma with lung mets, chronic headaches, COPD, HTN, GERD, peripheral neuropathy, alcohol use disorder who was brought in by a friend from [facility] for confusion.
Psychiatry asked to evaluate due to pt's report of feeling absent minded, disoriented and hallucinating (people, places) for the past few days. He has had multiple recent admissions in the past 3 months, with the most recent 10/06- 10/10/24 for PNA,
TME, and chronic hematoma, treated with Abx .
On interview, pt alert, awake, states he got confused, 'lost time'. Recalls being released from to nursing facility, did not like [facility]. Sensorium appears better today.
Psych Hx- denied
SH: former smoker, former daily drinker (alcohol), last drink reportedly 8 months ago
, residing in [facility]. Pt states his long-time partner of 28 years 3 years ago from cancer. 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 He
reports he sold his home. Pt states his friend Cindy is his POA.
MSE: alert, unkempt, pleasant, cooperative, oriented to place, able to recall the recent sequence of events, aware he has been disoriented. Mood stable, affect appropriate. Speech coherent, answers somewhat rambling, talking about his placement
and care needs, appears mildly anxious. Insight appears fair. No signs of psychosis/hallucinations.
Imp: TME with disorientation, reported Visual hallucinations, though none evident at present. Appears to be improving. No agitation apparent/noted
Hx of alcohol use, reportedly in remission
Rec: Would continue existing medications- Gabapentin, Amitriptyline; continue to treat underlying conditions
Will follow loosely
--- NOTE | 2024-10-24 16:28 | CON.ONC ---
Impression
Impression
melanoma, metastatic to lung (per records), last dose of immunotherapy (opdualag) in Jul 2024, [facility]
confusion
diarrhea
h/o immune toxicities - joint pain, myositis, adrenal insufficiency, colitis
Plan
Plan
Clinical picture is complicated, but no significant findings to suggest acute immunotherapy toxicity is to blame
Diarrhea seems chronic and not suggestive of acute colitis from immunotherapy
Mental status may be related to other medications, h/o alcohol abuse, infection
Would consider neurology evaluation
Imaging (CXR, head CT, CT A/P) does not show obvious melanoma at this time. He could be in remission from immunotherapy. In that case, prognosis from a melanoma standpoint is good.
Patient History
History of Present Illness
Asked to see patient to evaluation for immunotherapy toxicity and to comment on melanoma prognosis
This is a 74 yo M w/ h/o metastatic melanoma, treated at [facility] w/ immunotherapy, last opdualag was July 2024. He's a poor historian and in the hospital currently with confusion, so history is taken mostly from records. He's had multiple
admissions for pain, respiratory issues, and diarrhea.
He was sent to the ER from his rehab facility with confusion. Infectious workup is underway. CXR and head CT are negative. CT A/P suggests mild colitis. He's had some diarrhea chronically. He's on steroids for adrenal insufficiency, increased at
admission w/ concern for sepsis, for which he's on Zosyn. Random cortisol is normal.
From onc consultation in Jul 2024 -- Pt follows with Dr. Baptiste and Gordy Gaines at [facility]. He was initially diagnosed with locally advanced melanoma in 2021 and underwent resection with axillary LN dissection in Mar 2022. He developed recurrence
with 2 left lung lesions per pt report in March 2023. he was started on immunotherapy (cannot recall name however opualag sounds familiar)- but this was held secondary to severe side effects including myositis, severe peripheral neuropathy from
Aug 2023 to apr. He states he had multiple prolonged admissions for these symptoms (however admission note in February comments [facility] admit for ETOH w/d). He was on high dose prednisone with wean however states he did not tolerate and was switched to
hydrocortisone 20 mg in am, 10 mg in pm by his almond cutting machine tender. He was restarted on immunotherapy in Apr and received 4th treatment 08/09/25 (he believes same drug as before). He has again noted worsening neuropathic pain (prior symptoms never
resolved) as well as diffuse / symmetric joint pains, eye pain and chest / abdominal pain.
Past-Medical/Surgical History
As above
Patient Medication
�Medication �Instructions �Recorded �Confirmed �Last Taken �Type
hydrocortisone 10 mg tablet 10 mg PO DAILY Anti-Inflammatory 11/20/23 10/23/24 09/13/24 History
pantoprazole 40 mg tablet,delayed 40 mg PO DAILY Gastrointestinal 11/20/23 10/23/24 09/13/24 History
release (Protonix) Issue
umeclidinium 62.5 mcg-vilanterol 1 inh inhalation R DAILY 11/20/23 10/23/24 09/13/24 History
25 mcg/actuation powdr for Lung/Breathing Issues
inhalation (Anoro Ellipta)
cholecalciferol (vitamin D3) 25 25 mcg PO DAILY Supplement 03/08/24 10/23/24 09/13/24 History
mcg (1,000 unit) tablet (Vitamin
D3)
albuterol sulfate 90 mcg/actuation 2 puff inhalation R Q4HPRN PRN sob 08/10/24 10/23/24 Unknown History
aerosol inhaler
atorvastatin 40 mg tablet 40 mg PO HS High Cholesterol 08/10/24 10/23/24 09/13/24 History
cyanocobalamin (vitamin B-12) 1,000 mcg PO DAILY Supplement 08/10/24 10/23/24 09/13/24 History
1,000 mcg tablet
carvedilol 3.125 mg tablet (Coreg) 3.125 mg PO BID Blood Pressure 08/17/24 10/23/24 09/13/24 History
famotidine 20 mg tablet 20 mg PO BID Gastrointestinal Issue 09/14/24 10/23/24 09/13/24 History
levothyroxine 150 mcg tablet 150 mcg PO DAILY@0600 Thyroid 09/14/24 10/23/24 09/13/24 History
polyethylene glycol 3350 17 gram 17 g PO DAILYPRN PRN constipation 09/14/24 10/23/24 09/13/24 History
oral powder packet
polyvinyl alcohol-povidone (PF) 1 drops BOTH EYES QID Eye Condition 09/14/24 10/23/24 09/13/24 History
1.4 %-0.6 % eye drops in a
dropperette (Refresh Classic (PF))
furosemide 40 mg tablet (Lasix) 20 mg (1/2 x 40 mg) PO DAILY Fluid 09/19/24 10/23/24 09/13/24 Rx
Retention/Swelling #0 tabs
fluticasone furoate 100 1 inh inhalation R DAILY Allergies 10/06/24 10/23/24 Unknown History
mcg/actuation blister powder for
inhalation
loperamide 2 mg tablet 2 mg PO Q4HPRN PRN diarrhea 10/06/24 10/23/24 Unknown History
magnesium hydroxide 400 mg/5 mL 2,400 mg PO [id number] PRN no bm x3 10/06/24 10/23/24 Unknown History
oral suspension (Milk of Magnesia) days
magnesium oxide 400 mg PO DAILY Supplement 10/06/24 10/23/24 Unknown History
magnesium oxide 500 mg PO BID Supplement 10/06/24 10/23/24 Unknown History
potassium chloride 20 mEq 40 meq PO DAILY Supplement 10/06/24 10/23/24 Unknown History
tablet,extended release
thiamine HCl (vitamin B1) 100 mg 100 mg PO DAILY Supplement 10/06/24 10/23/24 Unknown History
tablet
amitriptyline 10 mg tablet 30 mg (3 x 10 mg) PO HS Mental 10/10/24 10/23/24 09/13/24 Rx
Health/Anxiety #0 tabs
gabapentin 400 mg capsule 400 mg PO TID #90 caps 10/10/24 10/23/24 Unknown Rx
oxycodone 5 mg tablet 5 mg PO Q4HPRN PRN moderate-severe 10/10/24 10/23/24 Unknown Rx
pain #10 tabs
acetaminophen 325 mg tablet 650 mg PO Q6HPRN PRN mild pain 10/23/24 10/23/24 Unknown History
Active Medications
Generic Name Dose Route Start Last Admin
Trade Name Freq PRN Reason Stop Dose Admin
Acetaminophen 650 mg 10/23/24 19:58 10/24/24 13:25
Acetaminophen 325 Mg Tablet PO 11/20/24 19:57 650 mg
Q6HPRN PRN Administration
mild pain
Albuterol 2 puff 10/23/24 19:58
Albuterol Hfa [90 Mcg/Dose] Inhaler INH
R Q4HPRN PRN
sob
Protocol
Amitriptyline HCl 30 mg 10/23/24 22:00 10/23/24 21:50
Amitriptyline 10 Mg Tablet PO 11/20/24 21:59 30 mg
HS GERDA Administration
Artificial Tears 1 drops 10/23/24 22:00 10/24/24 13:25
Artificial Tears Pf (Refresh) 10 Drop Droperette BOTH EYES 11/20/24 21:59 Not Given
QID GERDA
Atorvastatin Calcium 40 mg 10/23/24 22:00 10/23/24 21:50
Atorvastatin (Lipitor) 40 Mg Tablet PO 11/20/24 21:59 40 mg
HS GERDA Administration
Cholecalciferol 25 mcg 10/24/24 08:00 10/24/24 08:04
Cholecalciferol (Vitamin D3) 25 Mcg Tablet (1,000 Units) PO 11/21/24 07:59 25 mcg
DAILY GERDA Administration
Cyanocobalamin 1,000 mcg 10/24/24 08:00 10/24/24 08:04
Cyanocobalamin 1,000 Mcg Tablet PO 11/21/24 07:59 1,000 mcg
DAILY GERDA Administration
Enoxaparin Sodium 40 mg 10/23/24 19:58 10/23/24 20:37
Enoxaparin Sodium 40 Mg/0.4 Ml Syringe SC 11/20/24 19:57 40 mg
QPM GEDRA Administration
Famotidine 20 mg 10/23/24 20:00 10/24/24 08:04
Famotidine 20 Mg Tablet PO 11/20/24 19:59 20 mg
BID GERDA Administration
Fluticasone Propionate 2 puff 10/23/24 20:15 10/24/24 08:04
Fluticasone 44 Mcg Inhaler INH 11/20/24 20:14 2 puff
R BID GERDA Administration
Gabapentin 400 mg 10/23/24 22:00 10/24/24 16:06
Gabapentin 400 Mg Capsule PO 11/20/24 21:59 400 mg
TID GERDA Administration
Hydrocortisone 40 mg/ 50 mg 10/23/24 22:00 10/24/24 16:06
Hydrocortisone 10 mg PO 11/20/24 21:59 50 mg
TID GERDA Administration
Sodium Chloride 1,000 mls @ 100 mls/hr 10/23/24 19:58 10/24/24 08:02
Nss IV 1,000 mls
.Q10H GERDA Administration
Piperacillin Sod/Tazobactam Sod 3.375 gram in 50 mls @ 100 mls/hr 10/23/24 22:00 10/24/24 16:06
Zosyn IV 50 mls
Q6H GERDA Administration
Levothyroxine Sodium 150 mcg 10/24/24 06:00 10/24/24 05:21
Levothyroxine 150 Mcg Tablet PO 11/21/24 05:59 150 mcg
DAILY@0600 GERDA Administration
Magnesium Hydroxide 30 ml 10/23/24 19:58
Milk Of Magnesia 30 Ml Cup PO 11/20/24 19:57
[id number] PRN
no bm x3 days
Magnesium Oxide 500 mg 10/23/24 20:00 10/24/24 08:03
Magnesium Oxide 500 Mg Tablet PO 11/20/24 19:59 500 mg
BID GERDA Administration
Olodaterol 2 puff 10/24/24 08:00 10/24/24 08:04
Olodaterol (Striverdi Respimat) 2.5 Mcg Inhaler INH 11/21/24 07:59 2 puff
R DAILY GERDA Administration
Oxycodone HCl 5 mg 10/23/24 20:01 10/24/24 12:10
Oxycodone 5 Mg Regular Release Tablet PO 11/06/24 20:00 5 mg
Q4HPRN PRN Administration
moderate-severe pain
Pantoprazole Sodium 40 mg 10/24/24 08:00 10/24/24 08:04
Pantoprazole 40 Mg Delayed Release Tablet PO 11/21/24 07:59 40 mg
DAILY GERDA Administration
Polyethylene Glycol 17 grams 10/23/24 19:58
Polyethylene Glycol Powder 17 Grams Packet PO 11/20/24 19:57
DAILYPRN PRN
constipation
Sodium Chloride 0 flush 10/23/24 21:00 10/23/24 20:10
Sodium Chloride 0.9% (Flush) Syringe IV 11/20/24 20:59 1 flush
PER PROTOCOL GERDA Administration
Thiamine HCl 100 mg 10/24/24 08:00 10/24/24 08:04
Thiamine 100 Mg Tablet PO 11/21/24 07:59 100 mg
DAILY GERDA Administration
Tiotropium Alvaton 2 puff 10/24/24 08:00 10/24/24 08:03
Tiotropium (Spiriva Respimat) 2.5 Mcg Inhaler INH 11/21/24 07:59 2 puff
R DAILY GERDA Administration
Review of Systems
-
Unable to obtain full review of systems at this time due to: Other (very tangential, doesn't answer questions directly)
Physical Exam
-
General: Well Developed, Well Nourished, No Apparent Distress, Comfortable and Conversant
HEENT: Moist Mucous Membranes; Negative Jaundice
Cardiology: Normal Sinus Rhythm
Pulmonary: Clear
GI: Soft and Normal Bowel Sounds
Musculoskeletal: No Clubbing, No Cyanosis and No Edema
Extremities: No C/C/E
Neurology: Other (answers some questions inappropriately, tangential speech)
Skin: Warm and Dry
Hematologic / Lymphatic: No Lymphadenopathy
Labs
Lab Results
WBC 12.2 10^3/uL (4.8-10.8) H 10/24/24 03:51
RBC 2.84 10^6/uL (4.70-6.10) L 10/24/24 03:51
Hgb 7.7 g/dL (13.0-18.0) L 10/24/24 03:51
Hct 24.4 % (39.0-52.0) L 10/24/24 03:51
MCV 85.9 fL (80.0-94.0) 10/24/24 03:51
MCH 27.1 pg (27.0-31.0) 10/24/24 03:51
MCHC 31.6 g/dL (33.0-37.0) L 10/24/24 03:51
RDW 15.1 % (11.5-14.5) H 10/24/24 03:51
Plt Count 587 10^3/uL (130-400) H 10/24/24 03:51
MPV 9.0 fL (7.4-10.4) 10/24/24 03:51
Abs Immat Gran (auto) 0.2 10^3/uL (0-0.05) H 10/23/24 13:05
Absolute Neuts (auto) 10.5 10^3/uL (1.4-6.5) H 10/23/24 13:05
Absolute Lymphs (auto) 1.7 10^3/uL (1.2-3.4) 10/23/24 13:05
Absolute Monos (auto) 1.3 10^3/uL (0.1-0.6) H 10/23/24 13:05
Absolute Eos (auto) 0.1 10^3/uL (0-0.7) 10/23/24 13:05
Absolute Basos (auto) 0.1 10^3/uL (0-0.2) 10/23/24 13:05
Immature Gran % 1.7 % (0-0.5) H 10/23/24 13:05
Neutrophils % 75.6 % (42.2-75.2) H 10/23/24 13:05
Lymphocytes % 12.0 % (20.5-51.1) L 10/23/24 13:05
Monocytes % 9.4 % (1.7-9.3) H 10/23/24 13:05
Eosinophils % 0.9 % (0-6) 10/23/24 13:05
Basophils % 0.4 % (0-2) 10/23/24 13:05
Creatinine 0.8 mg/dL (0.7-1.3) 10/24/24 03:51
Vital Signs
Vital Signs
Temp Pulse Resp BP Pulse Ox
97.9 F 98 18 113/66 95
10/24/24 15:56 10/24/24 12:10 10/24/24 12:10 10/24/24 12:10 10/24/24 08:21
[2024-10-24] MEDS: LOVENOX 40 MG SC (18:09)
--- NOTE | 2024-10-24 20:58 | PTCARENOTE ---
Pt transferred to [id number], with all of his belongings. Sister updated.
[2024-10-24] MEDS: ELAVIL 30 MG PO (22:51)
[2024-10-24] MEDS: LIPITOR 40 MG PO (22:52)
--- NOTE | 2024-10-24 23:56 | PTCARENOTE ---
Patient received from MIXOLOGIST. Pt is NSR on monitor. Satting 98% on RA. Pt awake and alert, can answer orientation questions when asked, however cannot carry a oriented conversation. Pt is very restless in the bed. Pt tells this RN there are
'trapezes hanging from the ceiling'. Asking repetitive questions. Safe environment maintained.
[2024-10-25] VITALS (15 sets, daily range): BP systolic 97–135; BP diastolic 53–87; PULSE 91–107; O2SAT 97; BMI 22.3
[2024-10-25] MEDS: ZOSYN 50 IV (04:50)
[2024-10-25] MEDS: NSS 1000 IV (04:50)
--- NOTE | 2024-10-25 05:01 | PTCARENOTE ---
Pt adamantly refusing blood work this Am, yelling at this RN using inappropriate language such as curse words. No tech currently on floor to assist in collection of labs. Plan is to attempt collection of labs once pt has calmed down.
[2024-10-25] MEDS: SYNTHROID 150 MCG PO (05:38)
[2024-10-25 05:55] LABS: Hematocrit 22.7 % (39.0-52.0); Hemoglobin 7.3 g/dL (13.0-18.0); Mean Corp Hgb Conc. 32.2 g/dL (33.0-37.0); Mean Corpuscular Hgb 26.9 pg (27.0-31.0); Mean Corpuscular Volume 83.8 fL (80.0-94.0); Mean Platelet Volume 8.9 fL (7.4-10.4); Platelet Count 618 10^3/uL (130-400); Red Blood Cell Count 2.71 10^6/uL (4.70-6.10); White Blood Cell Count 9.6 10^3/uL (4.8-10.8)
[2024-10-25 06:21] LABS: Blood Urea Nitrogen 11 mg/dl (9-20); Calcium 8.7 mg/dl (8.4-10.2); Carbon Dioxide 21 mmol/L (22-30); Chloride 108 mmol/L (98-107); Estimated Creatinine Clearance 79 ml/min; Glucose 167 mg/dl (70-99); Magnesium 2.1 mg/dl (1.6-2.3); Potassium 3.8 mmol/L (3.5-5.1); Sodium 137 mmol/L (135-145); eGFR > 60.00
[2024-10-25] MEDS: STRIVERDI RESPIMAT 2 PUFF INH (07:40)
[2024-10-25] MEDS: SPIRIVA RESPIMAT 2.5 MCG 2 PUFF INH (07:40)
[2024-10-25] MEDS: FLOVENT 44 MCG INHALER 2 PUFF INH ×2 (07:41→20:04)
--- NOTE | 2024-10-25 08:18 | PTCARENOTE ---
Patient received from padder cushion. Patient resting comfortably in bed. AAO, VSS. No events noted overnight. No complaints of pain. Currently on Room Air. NSS @ 100mL/hr through IV. Continuing ABX. No testing scheduled at this time. Call
ha in reach.
[2024-10-25] MEDS: HYDROCORTONE/CORTEF 50 MG PO (08:44)
[2024-10-25] MEDS: MAGNESIUM OXIDE 500 MG PO ×2 (08:44→21:45)
[2024-10-25] MEDS: VITAMIN B1 100 MG PO (08:46)
[2024-10-25] MEDS: REFRESH EYE DROPS (PF) 1 DROPS BOTH EYES ×3 (08:46→21:46)
[2024-10-25] MEDS: VITAMIN D3 (cholecalciferol) 25 MCG PO (08:46)
[2024-10-25] MEDS: PROTONIX 40 MG PO (08:46)
[2024-10-25] MEDS: PEPCID 20 MG PO ×2 (08:46→21:45)
[2024-10-25] MEDS: VITAMIN B-12 1000 MCG PO (08:46)
[2024-10-25] MEDS: NEURONTIN 400 MG PO ×3 (08:47→21:46)
--- NOTE | 2024-10-25 09:10 | VATNOTE ---
During routine assessment, pt was noted to have 11 cm x 11 cm IVF infiltrate. Perimeter of infiltrate marked, IV removed, arm elevated and heat applied to infiltrate. Will continue to monitor.
--- NOTE | 2024-10-25 10:45 | CM ---
Patient seen at bedside with physicians. Patient stated that he understood plan for transfer back to SNF. CM will continue to follow for discharge planning needs.
Plan; return to SNF when medically appropriate
--- NOTE | 2024-10-25 11:37 | W.PN.ID1 ---
Date of Service
Date of Service: October 25, 2024
Today's Communication
Observe off abx.
ID will sign off.
Assessment / Plan
# Fever x 1 resolved
# Leukocytosis - resolved
- UA neg, COVID/Flu neg, CXR neg. C. diff neg.
- blood cx's neg x 2 neg to date.
- All abx's dc'd.
- Observe off abx.
# Suspect immune-system related side effects of recent immunotherapy Opdualag.
-Pt previously known to have severe side effects, held for 8 months, then resumed monthly in May 2024, ?last received 08/11/24.
Adverse reactions include musculoskeletal pain, adrenal insufficiency, thyroid disorder, diarrhea, enteritis/colitis, vasculitis, autoimmune neuropathy, ocular toxicity, confusion/memory problems - all of which this patient has been experiencing
for the past month and longer.
- Pt appears to be clinically responding to hihger dose of steroid.
- Consider long steroid taper.
ID will sign off.
Subjective / Review of Systems
More alert today.
He feels much improved, thinking better, less diffuse pain.
Vital Signs / Physical Exam
Vital Signs
Vital Signs
Temp Pulse Resp BP Pulse Ox
97.7 F 85 14 133/83 95
10/25/24 07:50 10/25/24 07:51 10/25/24 07:51 10/25/24 06:00 10/25/24 10:47
Physical Exam
Constitutional: No Acute Distress and Comfortable
Cardiovascular: Regular Rate and S1/S2
Pulmonary: Clear
Gastrointestinal: Soft, Non Tender, Non Distended and Normal Bowel Sounds
Extremities: Negative Edema
Neurological: AO x 3
Objective Data
Lab Data
Lab Results
10/25/24 05:36
10/25/24 05:36
Estimated Creat Clear 79 ml/min 10/25/24 05:36
Lactic Acid 1.7 mmol/L (0.7-2.0) 10/23/24 13:11
Total Bilirubin 0.9 mg/dl (0.2-1.3) 10/24/24 03:51
AST 30 U/L (17-59) 10/24/24 03:51
ALT 13 U/L (0-50) 10/24/24 03:51
Alkaline Phosphatase 145 U/L (38-126) H 10/24/24 03:51
Most recent labs reviewed.
Micro Results:
10/23/24 22:25 MRSA Screen - Final
Nose No Methicillin Resistant Staphylococcus aureus isolated.
10/23/24 22:13 Blood Culture - Preliminary
Blood/Venous No Growth in 24 hours- Final report to follow
10/23/24 21:11 Blood Culture - Preliminary
Blood/Venous No Growth in 24 hours- Final report to follow
10/24/24 03:46 C. difficile GDH Antigen & Toxins - Final
Feces/Stool Negative for toxigenic C.difficile
- Final
Negative for Norovirus GI and GII.
10/24/24 03:46 Salmonella/Shigella Culture - Pending
Feces/Stool Campylobacter Culture - Pending
Shiga Toxin Test - Pending
10/23/24 13:05 Influenza Types A & B (ALESSANDRA) - Final
Nasal Swab Negative for Influenza A & B, NAAT
Negative results must be combined with clinical observations
and patient history.
Nucleic Acid Amplification test (NAAT)performed on the
[employer] platform.
10/23/24 CT a/p: Suspected mild sigmoid wall thickening, possibly representing acute colitis.
10/23/24 CXR: No radiographic evidence of acute cardiopulmonary abnormality.
--- NOTE | 2024-10-25 12:20 | W.PN.ONC2 ---
Today's Communication / Plan
-
.
Impression
Impression
melanoma, metastatic to lung (per records), last dose of immunotherapy (opdualag) in Jul 2024, [facility]
confusion
diarrhea
h/o immune toxicities - joint pain, myositis, adrenal insufficiency, colitis
Plan
Plan
Clinical picture is complicated, but no significant findings to suggest acute immunotherapy toxicity is to blame
Diarrhea seems chronic and not suggestive of acute colitis from immunotherapy
Mental status may be related to other medications, h/o alcohol abuse, infection
Would consider neurology evaluation
Imaging (CXR, head CT, CT A/P) does not show obvious melanoma at this time. He could be in remission from immunotherapy. In that case, prognosis from a melanoma standpoint is good.
Subjective/Objective
Subjective
no new complaints
Vital Signs:
Vital Signs
Temp Pulse Resp BP Pulse Ox
98.2 F 85 14 133/83 95
10/25/24 11:40 10/25/24 07:51 10/25/24 07:51 10/25/24 06:00 10/25/24 10:47
Lab Results:
Laboratory Data
WBC 9.6 10^3/uL (4.8-10.8) 10/25/24 05:36
Hgb 7.3 g/dL (13.0-18.0) L 10/25/24 05:36
Plt Count 618 10^3/uL (130-400) H 10/25/24 05:36
eGFR > 60.00 10/25/24 05:36
Physical Exam
General: Well Developed, Well Nourished, No Apparent Distress, Comfortable and Conversant
HEENT: Moist Mucous Membranes; Negative Jaundice
Cardiology: Normal Sinus Rhythm
Pulmonary: Clear
GI: Soft and Normal Bowel Sounds
Musculoskeletal: No Clubbing, No Cyanosis and No Edema
Extremities: No C/C/E
Neurology: A&O3, speech clear, tangential speech)
Skin: Warm and Dry
Hematologic / Lymphatic: No Lymphadenopathy
[2024-10-25] MEDS: REFRESH EYE DROPS (PF) BOTH EYES (13:34)
--- NOTE | 2024-10-25 13:38 | W.PN.HOSP.TC ---
Addendum entered and electronically signed by Carolyn Blancas MD 10/25/24 14:46:
I saw and evaluated the patient independently. I reviewed the resident�s note and agree with findings and plan as documented by Dr. Lowe.
GENERAL: well developed, well nourished, male in no apparent distress
HEENT: NC/AT--no specific nuchal rigidity
HEART: regular rate and rhythm, +S1, +S2
LUNGS : clear to auscultation bilaterally
ABDOM: soft, nontender, nondistended, + bowel sounds
EXT: no cyanosis, clubbing, or edema--bilateral shoulders/knees/elbows are better
NEUROLOGIC: grossly intact
SKIN: no rashes appreciated
Sepsis but source unclear--CXR neg, head CT neg, UA neg, Covid/Flu neg--pt does admit to diarrhea (colitis/enteritis) CT scan A/P confirms possibly acute colitis, diffuse joint pain likely reactive but consider endocarditis, ECHO without
vegetation--apprec ID-- Lyme pending and uric acid WNL--stop vanco/zosyn-- cultures negative--stop IVF--hold diuretics
Encephalopathy--Likely toxic metabolic encephalopathy secondary to infection-- Medication adverse effect is a possibility--Pt does report hallucinations--Apprec Psych
Electrolyte abnormality--Hyponatremia with Hyperkalemia--lends towards adrenal insufficiency--stress dose hydrocortisone, place back to outpt dosing--should be 20mg AM and 10 mg PM of hydrocortisone -- follow labs--stop IVF
Diarrhea--pt has had in past thought to be due to immune reaction from immune therapy-- stool studies pending--has been off therapy--hold loperamide
Thrombocytosis--Likely reactive--Follow CBC
Polyarthritis--Could be reactive, or part of infectious process--Continue IV abx
Adrenal insufficiency--On hydrocortisone 10mg daily at home. Will stress dose 50mg C3L--Rpkm diuretics and antihypertensive
COPD without exacerbation-- Continue Anoro ellipta
GERD-- Cont PPI
Essential HTN-- Holding antihypertensives
Melanoma plus lung mets--off immune therapy--[facility]ed at [facility]
Alcohol use disorder--Last drink 8 months ago
Peripheral neuropathy--Continue amitriptyline and gabapentin
Chronic anemia--Stable at this time, follow CBC
Chronic headaches--As needed Tylenol
Nephrolithiasis
DVT prophy--Lovenox
CODE STATUS--Full code--believe was seen by Palliative care in a past admission
all above could be due to reaction/residual effects from immune therapy Opdualag
Ok for transfer out of IMU
Original Note:
Today's Communication/Plan
-
Monitor off antibiotics
Switch to physiologic hydrocortisone doses
transfer to floors
Assessment / Plan
Assessment / Plan
IMPRESSION: 74 year old male with adrenal insufficiency and other PMH who presents with SIRS with unknown source, encephalopathy, thrombocytosis, electrolyte abnormalities, and polyarthritis.
PLAN:
SIRS:
Leukocytosis, tachycardia, fever.
Chest x-ray with no acute abnormalities. Head CT with no acute abnormalities
Urinalysis normal, lactic acid normal, COVID/flu negative
Abd/pel CT: Suspected mild sigmoid wall thickening, possibly representing acute colitis. Trace hyperdensity dependently in in the rectum may be due to oral contrast. Active GI bleed less likely.
Echo unremarkable.
Await Lyme results.
-Appreciate GI, ID input
-GI consult
-Infection unlikely. Discontinue Vanc and Zosyn, Monitor off abx
-Discontinue IVF with normal PO intake and stable BP, holding diuretics and carvedilol while pressures are low/borderline
Encephalopathy:
Potentially toxic metabolic encephalopathy secondary to immunotherapy side effect, appears to be chronic. Cannot rule out Korsakoff psychosis given history of drinking, hallucination and inattention.
-Appreciate psych input. will also check TSH/FT4. Will follow psych recs per Amitriptyline
Electrolyte abnormality:
Hyponatremia with Hyperkalemia
-History of adrenal insufficiency, resolved with stress dosing of hydrocortisone and IVF.
-Resolved
Diarrhea:
Improving. Diarrhea appears chronic, present at previous admissions and often alternates with constipation. Potentially caused by chronic side effects of immunotherapy Opdualag which was last received in July. Could also consider IBS although
this is not the usual demographic.
-Negative norovirus and cdiff. Stool culture pending
Thrombocytosis:
Likely reactive,
-Follow CBC
Polyarthritis:
Chronic, present at previous admissions. Less likely reactive arthritis. Significantly improved. Patient only complains of left shoulder pain today.
-Uric acid normal. Lyme pending.
-Monitor off abx
Chronic anemia:
Steady decline from normal in hgb since 07/2024
Pt denies black/bloody stool
-Iron studies indicated anemia of chronic disease
Adrenal insufficiency:
-After going through pt history, it appears that he was on subphysiologic replacement. Has been on stress doses of Hydrocortisone. Patient symptoms have improved, and BP stable. Will switch to physiologic dosing 20mg AM/10mg PM
-Hold diuretics and antihypertensives
Other problems:
COPD: Continue Anoro ellipta
GERD: Cont PPI
HTN: Holding antihypertensives
CAD
Melanoma plus lung mets
Alcohol use disorder: Last drink 8 months ago
Peripheral neuropathy: Continue amitriptyline and gabapentin for now
Chronic anemia: Stable at this time, follow CBC
Chronic headaches: As needed Tylenol
Nephrolithiasis
DVT prophylaxis: Lovenox
CODE STATUS: Full code
Anticipated Discharge: Within 24 hours
Subjective/Interval History
-
Date of Service: October 25, 2024
No acute overnight events
Objective Data
-
Labs:
Laboratory Results
10/25/24
05:36
WBC 9.6
Hgb 7.3 L
Hct 22.7 L
Plt Count 618 H
Sodium 137
Potassium 3.8
Chloride 108 H
Carbon Dioxide 21 L
BUN 11
Creatinine 0.8
Glucose 167 H
Calcium 8.7
Vital Signs:
Vital Signs
Temp Pulse Resp BP Pulse Ox
98.2 F 85 14 133/83 95
10/25/24 11:40 10/25/24 07:51 10/25/24 07:51 10/25/24 06:00 10/25/24 10:47
I&O
10/24/24 10/25/24 10/26/24
06:59 06:59 06:59
Intake Total 2074 / 2074 2200 / 2200 500 / 500
Output Total 1410 / 1410 1050 / 1050 450 / 450
Balance 665 / 665 1150 / 1150 50 / 50
Review of Systems
-
History Source: Patient
Constitutional: Denies No Appetite
Respiratory: Denies Cough or Trouble Breathing
Cardiac: Denies Chest Pain
Abdomen/GI: Reports Diarrhea; Denies Abdominal Pain, Nausea, Vomiting, Bloody Stools or Anorexia
Musculoskeletal: Reports Joint Pain (left shoulder)
Neuro: Reports Other (confusion, memory problems)
Physical Exam
-
General: Well Developed, Well Nourished, No Apparent Distress and Comfortable; Negative Respiratory Distress
HEENT: Normocephalic, Atraumatic, Moist Mucous Membranes and Anicteric
Respiratory: Clear to Auscultation and Non Labored Respirations; Negative Wheezes, Rales, Rhonchi or Crackles
Cardiac: Regular Rhythm and S1/S2; Negative Murmur, Rub or Calf Tenderness
GI: Soft, Nontender, Nondistended and Normal Bowel Sounds
Musculoskeletal: No Clubbing, No Cyanosis and No Edema
Skin: Warm and Dry
Neuro: Awake, Alert and Other (Orientation waxes and wanes)
Psych: Calm and Confused
--- NOTE | 2024-10-25 14:39 | W.PN.UPDATE ---
Update Note
Progress Note Update
patient seen chart reviewed. discussed w dr garcia and with nursing. 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 he was smiling and quite pleasant. he was also fiddling with his monitor told me he was 'disassembling. ' nursing said it was of no
consequence since he would be going to the floor shortly. he offered no complaint. told me the 'tomato soup' was very good and he enjoyed the brownie. i did review the chart prior to seeing mr rucker and noted that tsh was 35 initially. patient
does take synthroid 150 micrograms. would recheck tsh w reflex to t4. also he is quite anemic which could account for some of the sx prompting admit and lastly elavil with its anticholinergicity can contribute to confusion dry mouth blurry vision
urinary hesitancy constipation. i did not change this....it is not a large dose but being mindful of its negative effects could be helpful. patient currently receiving no other psych meds has not required prns' psych will sign off.
[2024-10-25] MEDS: CORTEF 10 MG PO (17:22)
[2024-10-25] MEDS: LOVENOX 40 MG SC (17:22)
--- NOTE | 2024-10-25 17:30 | W.PN.GI.CBS2 ---
Today's Communication / Plan
-
added probiotics and fibre
Assessment / Plan
-
Shreyas is a 74-year-old male with history of metastatic melanoma to the lungs,s/p resection, axillary LN dissection,recurrence and started on immunotherapy at [facility] Dr. Lauri Perales with Opdualag (started may 2023, last dose August 11,
2023) -multiple side effects including headaches, myositis and neuropathy and history of adrenal insufficiency on chronic steroids. In review of chart pt with multiple admission in last few months. In mid July admitted after 3 dose of restart
of immunotherapy 08/11 with body ache/joint pain, chest pain and redness in eyes with blurred vision with concern for ICI toxicity. Pt was treated with high dose steroids. Ct during admission with new mild stranding prominent nodes with
duodenal/proximal jejunal enteritis vs mesenteric panniculitis. Pt was discharged 08/15 with return 08/17 with confusion and abdominal pain. Pt was seen by GI that admission with noted gallstones, bloating with ileus, chronic Oxycodone use. he
was due to get Vedolizumab in August at [facility]. He was treated with simethacone, PPI, minimizing narcotics, ambulation and supportive care. PT was discharged 08/28. He has several further admission in August to September with LE swelling
with ortho eval low risk for abscess possible ruptured main's cyst vs hematoma. 09/14 with failure to thrive and diarrhea with noted social issues discussed during admission. 2 with knee pain and confusion with PNA/sepsis and now returns with
confusion sepsis of unclear etiology. On admission fever 101.9, WBC 13,900, hbg 8.4, platelets 628 Na 129, alk phos 164 with otherwise normal LFT's, albumin 3.2. He is noted with diarrhea since admission with c-diff neg other cx pending. Repeat CT
on admission with concern for colitis with sigmoid wall thickening.
-sepsis with fever, leukocytosis
-diarrhea
-mild abdominal pain
-CT with sigmoid colitis
-confusion with concern for encephalopathy
-electrolyte imbalance
-thrombocytosis
-adrenal insufficiency on steroids
-anemia
-thrombocytosis
-metastatic melanoma to met to lung, LN dissection with prior immunotherapy
-adrenal insufficiency
-hx heavy ETOH and tobacco use
-hx c-diff within last year
PLAN:
etiology of sepsis with continued confusion with recent Immunotherapy complication related to GI source with colitis, diarrhea, vs continued issue related to ICI toxicity with immunotherapy
pt was to go for further Vedolizumab therapy in August but per friend has not returned
Stool negative for C. difficile also negative for norovirus
diarrhea has improved
He is on chronic steroids and was treated with stress dose steroids at admission which are being tapered
I doubt that his current symptoms are related to immune mediated colitis
He is currently residing at [facility] and on on his outpatient medications are listed magnesium including MOM, magnesium oxide 500 mg and MiraLAX which could have made his diarrhea worse continue to hold
Added fiber supplements to bulk stools
Added probiotics.
I told him to follow-up with his oncologist and GI at [facility] unclear if he needs further vedolizumab although he has really not followed up since July
GI will sign off and will be available as needed
Subjective
Subjective
Date of Service: October 25, 2024
still remains confused but improved from yesterday
Diarrhea is also improved he only had 1 bowel movement today, I discussed with his nurse Guevara also.
No nausea or vomiting, tolerating diet, no rectal bleeding or melena
Objective
Data Reviewed
Laboratory Data:
Laboratory Results
10/25/24 05:36
10/25/24 05:36
Laboratory Results
Phosphorus 4.5 mg/dl (2.5-4.5) 10/24/24 03:51
Magnesium 2.1 mg/dl (1.6-2.3) 10/25/24 05:36
Total Bilirubin 0.9 mg/dl (0.2-1.3) 10/24/24 03:51
AST 30 U/L (17-59) 10/24/24 03:51
ALT 13 U/L (0-50) 10/24/24 03:51
Alkaline Phosphatase 145 U/L (38-126) H 10/24/24 03:51
Vital Signs and I&O:
Vital Signs
Temp Pulse Resp BP Pulse Ox
97.8 F 91 17 133/65 95
10/25/24 15:05 10/25/24 12:00 10/25/24 14:00 10/25/24 14:00 10/25/24 10:47
I&O
10/24/24 10/25/24 10/26/24
06:59 06:59 06:59
Intake Total 2075 / 2075 2200 / 2200 500 / 500
Output Total 1410 / 1410 1050 / 1050 450 / 450
Balance 665 / 665 1150 / 1150 50 / 50
Physical Exam
Physical Exam
Cardiology: Normal Sinus Rhythm
Pulmonary: Clear
GI: Soft, Non Distended, Non Tender and Normal Bowel Sounds
--- NOTE | 2024-10-25 17:50 | PTCARENOTE ---
Report called to 4E RN.
--- NOTE | 2024-10-25 18:16 | PTCARENOTE ---
Pt. arrived to [facility] from IMU via wheelchair. Pt. without c/o pain, stable at this time. Bed alarm in place and on.
[2024-10-25] MEDS: ELAVIL 30 MG PO (21:45)
[2024-10-25] MEDS: ROXICODONE 5 MG PO (21:46)
[2024-10-25] MEDS: LIPITOR 40 MG PO (21:46)
[2024-10-26] VITALS (8 sets, daily range): BP systolic 119–143; BP diastolic 68–86
[2024-10-26] MEDS: SYNTHROID 150 MCG PO (05:17)
[2024-10-26 06:45] LABS: Hematocrit 21.8 % (39.0-52.0); Hemoglobin 6.9 g/dL (13.0-18.0); Mean Corp Hgb Conc. 31.7 g/dL (33.0-37.0); Mean Corpuscular Hgb 27.3 pg (27.0-31.0); Mean Corpuscular Volume 86.2 fL (80.0-94.0); Mean Platelet Volume 8.8 fL (7.4-10.4); Platelet Count 617 10^3/uL (130-400); Red Blood Cell Count 2.53 10^6/uL (4.70-6.10); Red Cell Dist. Width 15.2 % (11.5-14.5)
[2024-10-26 07:16] LABS: Blood Urea Nitrogen 11 mg/dl (9-20); Calcium 8.8 mg/dl (8.4-10.2); Carbon Dioxide 24 mmol/L (22-30); Chloride 108 mmol/L (98-107); Estimated Creatinine Clearance 90 ml/min; Glucose 123 mg/dl (70-99); Magnesium 2.2 mg/dl (1.6-2.3); Potassium 3.6 mmol/L (3.5-5.1); Sodium 140 mmol/L (135-145); eGFR > 60.00
--- NOTE | 2024-10-26 07:21 | PTCARENOTE ---
Pt with critical HGB 6.9- house [employer] aware order for type and screen.
[2024-10-26 07:38] LABS: TSH Reflex To Free T4 5.99 uIU/ml (0.47-4.68)
[2024-10-26] MEDS: SPIRIVA RESPIMAT 2.5 MCG 2 PUFF INH (07:39)
[2024-10-26] MEDS: FLOVENT 44 MCG INHALER 2 PUFF INH ×2 (07:39→19:37)
[2024-10-26] MEDS: STRIVERDI RESPIMAT 2 PUFF INH (07:40)
[2024-10-26 08:06] LABS: Free T4 1.89 ng/dl (0.78-2.19)
--- NOTE | 2024-10-26 08:54 | W.PN.ONC2 ---
Today's Communication / Plan
-
.
Impression
Impression
melanoma, metastatic to lung (per records), last dose of immunotherapy (opdualag) in Jul 2024, [facility]
confusion
diarrhea
CT with colitis
h/o immune toxicities - joint pain, myositis, adrenal insufficiency, colitis
anemia -Hgb trending down from >11g/dL in Jul 2024. Celiac panel April 2024 negative. hemolysis unlikely with normal retic and LFTs. No role for iron repletion with ferritin >150. No B12 or folate deficiency
Plan
Plan
Clinical picture is complicated, but no significant findings to suggest acute immunotherapy toxicity is to blame
Diarrhea seems chronic and not suggestive of acute colitis from immunotherapy
Mental status may be related to other medications, h/o alcohol abuse, infection -Would consider neurology evaluation
Imaging (CXR, head CT, CT A/P) does not show obvious melanoma at this time. He could be in remission from immunotherapy. In that case, prognosis from a melanoma standpoint is good.
check heme stool, monitor for bleeding
transfuse PRBC for Hgb <7 or as needed for sxs anemia. Has been on prolonged steroids for management of ICI toxicities. check heme stool -GI following
f/u at [facility] w/Dr. Lauri Perales
Subjective/Objective
Subjective
no new complaints
poor historian
Hgb 6.9g/dL, platelets 617,000
Vital Signs:
Vital Signs
Temp Pulse Resp BP Pulse Ox
97.6 F 90 18 143/86 97
10/26/24 08:19 10/26/24 08:19 10/26/24 08:19 10/26/24 08:19 10/26/24 08:19
Lab Results:
Laboratory Data
WBC 10.0 10^3/uL (4.8-10.8) 10/26/24 06:09
Hgb 6.9 g/dL (13.0-18.0) L* 10/26/24 06:09
Plt Count 617 10^3/uL (130-400) H 10/26/24 06:09
eGFR > 60.00 10/26/24 06:09
Physical Exam
HEENT: Moist Mucous Membranes; No Jaundice
Cardiology: Normal Sinus Rhythm
Pulmonary: Clear
GI: Soft
Extremities: Pulses Present
--- NOTE | 2024-10-26 09:04 | VATNOTE ---
Right arm infiltrate site has no swelling or redness noted at this time. Pt. denies any pain.
[2024-10-26] MEDS: VITAMIN B-12 1000 MCG PO (09:39)
[2024-10-26] MEDS: MAGNESIUM OXIDE 500 MG PO ×2 (09:39→20:44)
[2024-10-26] MEDS: CORTEF 20 MG PO (09:40)
[2024-10-26] MEDS: VISBIOME 2 CAP PO (09:40)
[2024-10-26] MEDS: VITAMIN D3 (cholecalciferol) 25 MCG PO (09:41)
[2024-10-26] MEDS: PROTONIX 40 MG PO (09:41)
[2024-10-26] MEDS: NEURONTIN 400 MG PO ×3 (09:41→21:58)
[2024-10-26] MEDS: VITAMIN B1 100 MG PO (09:42)
[2024-10-26] MEDS: PEPCID 20 MG PO ×2 (09:42→20:43)
[2024-10-26] MEDS: REFRESH EYE DROPS (PF) 1 DROPS BOTH EYES ×3 (09:42→17:19)
[2024-10-26] MEDS: TYLENOL 650 MG PO ×2 (09:47→20:42)
[2024-10-26] MEDS: ROXICODONE 5 MG PO ×2 (09:47→20:42)
[2024-10-26 12:19] LABS: Lyme Antibody Screen, EIA Negative (Negative)
--- NOTE | 2024-10-26 12:31 | W.PN.HOSP.TC ---
Addendum entered and electronically signed by Carolyn Blancas MD 10/26/24 14:53:
I saw and evaluated the patient independently. I reviewed the resident�s note and agree with findings and plan as documented by Dr. Lowe.
GENERAL: well developed, well nourished, male in no apparent distress
HEENT: NC/AT--no specific nuchal rigidity
HEART: regular rate and rhythm, +S1, +S2
LUNGS : clear to auscultation bilaterally
ABDOM: soft, nontender, nondistended, + bowel sounds
EXT: no cyanosis, clubbing, or edema--bilateral shoulders/knees/elbows are better
NEUROLOGIC: grossly intact
SKIN: no rashes appreciated
Sepsis but source unclear--CXR neg, head CT neg, UA neg, Covid/Flu neg--pt does admit to diarrhea (colitis/enteritis) CT scan A/P confirms possibly acute colitis, diffuse joint pain likely reactive--ECHO without vegetation--apprec ID-- Lyme pending
and uric acid WNL--stop vanco/zosyn-- cultures negative--stop IVF--hold diuretics
Encephalopathy-- improved---Likely toxic metabolic encephalopathy secondary to infection-- Medication adverse effect is a possibility--Pt does report hallucinations--Apprec Psych
Electrolyte abnormality--Hyponatremia with Hyperkalemia--lends towards adrenal insufficiency--stress dose hydrocortisone, back to outpt dosing--should be 20mg AM and 10 mg PM of hydrocortisone -- follow labs--stop IVF
Diarrhea--pt has had in past thought to be due to immune reaction from immune therapy-- stool studies pending--has been off therapy--hold loperamide
Thrombocytosis--Likely reactive--Follow CBC
Polyarthritis--Could be reactive, or part of infectious process--Continue IV abx
Adrenal insufficiency--On hydrocortisone 10mg daily at home. Will stress dose 50mg Y7U--Pzhq diuretics and antihypertensive
COPD without exacerbation-- Continue Anoro ellipta
GERD-- Cont PPI
Essential HTN-- Holding antihypertensives
Melanoma plus lung mets--off immune therapy--followed at [facility]
Alcohol use disorder--Last drink 8 months ago
Peripheral neuropathy--Continue amitriptyline and gabapentin
Chronic anemia--HGB dropping likely due to dilutional effects from IVF--no active bleeding--will transfuse 2 pRBC for HGB 6.9
Chronic headaches--As needed Tylenol
Nephrolithiasis
DVT proph--Lovenox
CODE STATUS--Full code--believe was seen by Palliative care in a past admission
all above could be due to reaction/residual effects from immune therapy Opdualag
Original Note:
Today's Communication/Plan
-
Transfuse 2 units PRBCs
Assessment / Plan
Assessment / Plan
IMPRESSION: 74 year old male with adrenal insufficiency and other PMH who presents with SIRS with unknown source, encephalopathy, thrombocytosis, electrolyte abnormalities, and polyarthritis.
PLAN:
SIRS:
Leukocytosis, tachycardia, fever.
Chest x-ray with no acute abnormalities. Head CT with no acute abnormalities
Urinalysis normal, lactic acid normal, COVID/flu negative
Abd/pel CT: Suspected mild sigmoid wall thickening, possibly representing acute colitis. Trace hyperdensity dependently in in the rectum may be due to oral contrast. Active GI bleed less likely.
Echo unremarkable. Lyme negative
-Appreciate GI, ID input
-Infection unlikely. Afebrile, Vitals stable off abx
Encephalopathy:
Potentially toxic metabolic encephalopathy secondary to immunotherapy side effect, appears to be chronic. Cannot rule out Korsakoff psychosis given history of drinking, hallucination and inattention.
-Appreciate psych input. Continue Amitriptyline for now
-TSH mildly elevated at 5.99, with normal FT4. TSH in may 26. Will make no changes. PCP follow up
Electrolyte abnormality:
Hyponatremia with Hyperkalemia
-History of adrenal insufficiency, resolved status post stress dosing of hydrocortisone and IVF.
-Resolved
Diarrhea:
Unclear etiology. Appears to be resolved now. Diarrhea appears chronic, present at previous admissions and often alternates with constipation. Potentially caused by chronic side effects of immunotherapy Opdualag which was last received in July.
Could also consider IBS although this is not the usual demographic.
-Negative norovirus and cdiff. Stool culture negative
-Appreciate GI. Continue holding laxatives. Started probiotics
Thrombocytosis:
Likely reactive,
-Follow CBC
Polyarthritis:
Chronic, present at previous admissions. Less likely reactive arthritis. Significantly improved.
-Uric acid normal. Lyme screen negative.
-Monitor off abx
Chronic anemia:
Steady decline from normal in hgb since 07/2024
Pt denies black/bloody stool
-Iron studies indicated anemia of chronic disease
-hemolysis unlikely with normal retic and LFTs. No role for iron repletion with ferritin >150. No B12 or folate deficiency
-Hgb 6.9 today. Will transfuse 2u PRBC
Adrenal insufficiency:
-After going through pt history, it appears that he was on subphysiologic replacement. Has been on stress doses of Hydrocortisone. Patient symptoms have improved, and BP stable. Tolerating physiologic dosing 20mg AM/10mg PM. appears well, symptoms
markedly improved
-Hold diuretics and antihypertensives
Other problems:
COPD: Continue Anoro ellipta
GERD: Cont PPI
HTN: Holding antihypertensives
CAD
Melanoma plus lung mets
Alcohol use disorder: Last drink 8 months ago
Peripheral neuropathy: Continue amitriptyline and gabapentin for now
Chronic anemia: Stable at this time, follow CBC
Chronic headaches: As needed Tylenol
Nephrolithiasis
DVT prophylaxis: Lovenox
CODE STATUS: Full code
Anticipated Discharge: Within 24 hours
Subjective/Interval History
-
Date of Service: October 26, 2024
Objective Data
-
Labs:
Laboratory Results
10/26/24
06:09
WBC 10.0
Hgb 6.9 L*
Hct 21.8 L
Plt Count 617 H
Sodium 140
Potassium 3.6
Chloride 108 H
Carbon Dioxide 24
BUN 11
Creatinine 0.7
Glucose 123 H
Calcium 8.8
Vital Signs:
Vital Signs
Temp Pulse Resp BP Pulse Ox
97.6 F 90 18 143/86 97
10/26/24 08:19 10/26/24 08:19 10/26/24 08:19 10/26/24 08:19 10/26/24 08:19
I&O
10/25/24 10/26/24 10/27/24
06:59 06:59 06:59
Intake Total 2200 / 2200 500 / 500
Output Total 1050 / 1050 750 / 750
Balance 1150 / 1150 -250 / -250
Review of Systems
-
History Source: Patient
Constitutional: Reports No Symptoms; Denies Fatigue
Respiratory: Denies Cough or Trouble Breathing
Cardiac: Denies Chest Pain or Palpitations
Abdomen/GI: Denies Abdominal Pain, Nausea or Vomiting
Neuro: Denies Dizzy, Headache or Lightheadedness
Physical Exam
-
General: Well Developed, Well Nourished, No Apparent Distress and Comfortable; Negative Respiratory Distress
HEENT: Normocephalic, Atraumatic and Moist Mucous Membranes
Respiratory: Clear to Auscultation and Non Labored Respirations; Negative Wheezes, Rales, Rhonchi or Crackles
Cardiac: Regular Rhythm and S1/S2; Negative Murmur, Rub or Calf Tenderness
GI: Soft, Nontender, Nondistended and Normal Bowel Sounds
Musculoskeletal: No Clubbing, No Cyanosis and No Edema
Skin: Warm and Dry
Neuro: Awake and Alert
Psych: Calm
--- NOTE | 2024-10-26 13:44 | CM ---
Addendum entered by Maegan Chaudhry 10/26/24 16:32:
Plan for return to SNF. CM updated Liaison at facility, plan for possible transfer tomorrow, pending medical treatment plan.
Original Note:
Patient seen at bedside with physician in ICU. Patient feeling better. CM will continue to follow for discharge planning needs.
Plan;return to SNF
--- NOTE | 2024-10-26 15:43 | W.PN.HOSP.TC ---
Addendum entered and electronically signed by Carolyn Blancas MD 10/27/24 19:31:
This note should be from October 27, 2024 not October 26 as documented.
I saw and evaluated the patient independently. I reviewed the resident�s note and agree with findings and plan as documented by Dr. Lowe.
GENERAL: well developed, well nourished, male in no apparent distress
HEENT: NC/AT
HEART: regular rate and rhythm, +S1, +S2
LUNGS : clear to auscultation bilaterally
ABDOM: soft, nontender, nondistended, + bowel sounds
EXT: no cyanosis, clubbing, or edema--bilateral shoulders/knees/elbows are better
NEUROLOGIC: grossly intact
SKIN: no rashes appreciated
Sepsis now ruled out--SIRS diagnosis likely from adrenal insufficiency--CXR neg, head CT neg, UA neg, Covid/Flu neg--pt does admit to diarrhea (colitis/enteritis) CT scan A/P confirms possibly acute colitis, diffuse joint pain likely reactive--ECHO
without vegetation--apprec ID-- Lyme pending and uric acid WNL--stop vanco/zosyn-- cultures negative--stop IVF--restart diuretics
Encephalopathy-- improved---Likely toxic metabolic encephalopathy secondary to infection-- Medication adverse effect is a possibility--Pt does report hallucinations--Apprec Psych
Electrolyte abnormality--Hyponatremia with Hyperkalemia--lends towards adrenal insufficiency--stress dose hydrocortisone, back to outpt dosing--should be 20mg AM and 10 mg PM of hydrocortisone -- follow labs--stop IVF
Diarrhea--pt has had in past thought to be due to immune reaction from immune therapy-- stool studies pending--has been off therapy--hold loperamide
Thrombocytosis--Likely reactive--Follow CBC
Polyarthritis--Could be reactive, or part of infectious process--Continue IV abx
Adrenal insufficiency--On hydrocortisone 10mg daily at home. Not physiologic dosing--place back on hydrocortisone 20 mg AM and 10 mg PM--DO NOT WEAN
COPD without exacerbation-- Continue Anoro ellipta
GERD-- Cont PPI
Essential HTN-- Holding antihypertensives
Melanoma plus lung mets--off immune therapy--followed at [facility]
Alcohol use disorder--Last drink 8 months ago
Peripheral neuropathy--Continue amitriptyline and gabapentin
Chronic anemia--HGB dropping likely due to dilutional effects from IVF--no active bleeding--s/p 2 pRBC --improved HGB to 10.7
Chronic headaches--As needed Tylenol
Nephrolithiasis
DVT proph--Lovenox
CODE STATUS--Full code--believe was seen by Palliative care in a past admission
all above could also be due to reaction/residual effects from immune therapy Opdualag
Original Note:
Today's Communication/Plan
-
DC planning
Assessment / Plan
Assessment / Plan
IMPRESSION: 74 year old male with adrenal insufficiency and other PMH who presents with SIRS with unknown source, encephalopathy, thrombocytosis, electrolyte abnormalities, and polyarthritis.
PLAN:
SIRS:
Leukocytosis, tachycardia, fever.
Chest x-ray with no acute abnormalities. Head CT with no acute abnormalities
Urinalysis normal, lactic acid normal, COVID/flu negative
Abd/pel CT: Suspected mild sigmoid wall thickening, possibly representing acute colitis. Trace hyperdensity dependently in in the rectum may be due to oral contrast. Active GI bleed less likely.
Echo unremarkable. Lyme negative
-Appreciate GI, ID input
-Infection unlikely. Afebrile, Vitals stable off abx
Encephalopathy:
Potentially toxic metabolic encephalopathy. Iimmunotherapy side effect is a possibility, appears to be chronic. Reports hallucination and inattention.
-Appreciate psych input. Continue Amitriptyline for now
-TSH mildly elevated at 5.99, with normal FT4. TSH in 04/2024 = 27. Will make no changes. PCP follow up
Electrolyte abnormality:
Hyponatremia with Hyperkalemia
-History of adrenal insufficiency, resolved status post stress dosing of hydrocortisone and IVF.
-Resolved
Diarrhea:
Unclear etiology. Appears to be resolved now. Diarrhea appears chronic, present at previous admissions and often alternates with constipation. Potentially caused by chronic side effects of immunotherapy Opdualag which was last received in July.
Could also consider IBS although this is not the usual demographic.
-Negative norovirus and cdiff. Stool culture negative
-Appreciate GI. Continue holding laxatives. Started probiotics
Thrombocytosis:
Likely reactive,
-Follow CBC
Polyarthritis:
Chronic, present at previous admissions. Less likely reactive arthritis. Significantly improved.
-Uric acid normal. Lyme screen negative.
-Monitor off abx
Chronic anemia:
Steady decline from normal in hgb since 07/2024, more drop likely dilutional from IVF
Pt denies black/bloody stool or other source of bleeding
-Iron studies indicated anemia of chronic disease
-hemolysis unlikely with normal retic and LFTs. No role for iron repletion with ferritin >150. No B12 or folate deficiency
-Hgb 10.4 s/p 2 PRBCs
Adrenal insufficiency:
-After going through pt history, it appears that he was on subphysiologic replacement. Has been on stress doses of Hydrocortisone. Patient symptoms have improved, and BP stable. Tolerating physiologic dosing 20mg AM/10mg PM. appears well, symptoms
markedly improved
-Can resume antihypertensives and diuretics upon discharge
Other problems:
COPD: Continue Anoro ellipta
GERD: Cont PPI
HTN: Holding antihypertensives
CAD
Melanoma plus lung mets
Alcohol use disorder: Last drink 8 months ago
Peripheral neuropathy: Continue amitriptyline and gabapentin for now
Chronic anemia: Stable at this time, follow CBC
Chronic headaches: As needed Tylenol
Nephrolithiasis
DVT prophylaxis: Lovenox
CODE STATUS: Full code
Anticipated Discharge: Today
Subjective/Interval History
-
Date of Service: October 26, 2024
Objective Data
-
Labs:
Laboratory Results
10/26/24
06:09
WBC 10.0
Hgb 6.9 L*
Hct 21.8 L
Plt Count 617 H
Sodium 140
Potassium 3.6
Chloride 108 H
Carbon Dioxide 24
BUN 11
Creatinine 0.7
Glucose 123 H
Calcium 8.8
Vital Signs:
Vital Signs
Temp Pulse Resp BP Pulse Ox
97.4 F 80 18 121/68 97
10/26/24 14:10 10/26/24 14:10 10/26/24 14:10 10/26/24 14:10 10/26/24 14:10
I&O
10/25/24 10/26/24 10/27/24
06:59 06:59 06:59
Intake Total 2200 / 2200 500 / 500 0 / 0
Output Total 1050 / 1050 750 / 750
Balance 1150 / 1150 -250 / -250 0 / 0
[2024-10-26] MEDS: LOVENOX 40 MG SC (17:20)
[2024-10-26] MEDS: CORTEF 10 MG PO (17:20)
--- NOTE | 2024-10-26 19:41 | PTCARENOTE ---
Received p tis am AAOx2 Pt forgetful. Hgb 6.9 Pt transfused with 2 units of PRBCS. Tolerated diet well. Complained of left shoulder pain. Medicated with ylenol and Roxicodone wit relief. made patient comfortable Cont toassess patient status
[2024-10-26] MEDS: LIPITOR 40 MG PO (21:58)
[2024-10-26] MEDS: REFRESH EYE DROPS (PF) BOTH EYES (21:58)
[2024-10-26] MEDS: ELAVIL 30 MG PO (21:58)
[2024-10-27] MEDS: SYNTHROID 150 MCG PO (03:42)
[2024-10-27] MEDS: TYLENOL 650 MG PO ×2 (03:42→14:01)
[2024-10-27] MEDS: ROXICODONE 5 MG PO ×2 (03:47→14:02)
[2024-10-27 06:00] VITALS: BMI 23.5
[2024-10-27 07:03] VITALS: BP 146/80
[2024-10-27] MEDS: NEURONTIN 400 MG PO ×2 (08:01→16:24)
[2024-10-27] MEDS: VISBIOME 2 CAP PO (08:01)
[2024-10-27] MEDS: CORTEF 20 MG PO (08:02)
[2024-10-27] MEDS: MAGNESIUM OXIDE 500 MG PO (08:02)
[2024-10-27] MEDS: PROTONIX 40 MG PO (08:02)
[2024-10-27] MEDS: VITAMIN B1 100 MG PO (08:02)
[2024-10-27] MEDS: REFRESH EYE DROPS (PF) 1 DROPS BOTH EYES ×3 (08:02→17:32)
[2024-10-27] MEDS: VITAMIN D3 (cholecalciferol) 25 MCG PO (08:02)
[2024-10-27] MEDS: PEPCID 20 MG PO (08:02)
[2024-10-27] MEDS: VITAMIN B-12 1000 MCG PO (08:02)
[2024-10-27] MEDS: FLUSH (NSS) 1 FLUSH IV (08:03)
[2024-10-27] MEDS: SPIRIVA RESPIMAT 2.5 MCG 2 PUFF INH (08:31)
[2024-10-27] MEDS: STRIVERDI RESPIMAT 2 PUFF INH (08:32)
[2024-10-27] MEDS: FLOVENT 44 MCG INHALER 2 PUFF INH (08:32)
[2024-10-27 08:37] LABS: Hematocrit 33.1 % (39.0-52.0); Hemoglobin 10.7 g/dL (13.0-18.0); Mean Corp Hgb Conc. 32.3 g/dL (33.0-37.0); Mean Corpuscular Hgb 27.9 pg (27.0-31.0); Mean Corpuscular Volume 86.2 fL (80.0-94.0); Mean Platelet Volume 9.6 fL (7.4-10.4); Platelet Count 579 10^3/uL (130-400); Red Blood Cell Count 3.84 10^6/uL (4.70-6.10); Red Cell Dist. Width 15.8 % (11.5-14.5)
[2024-10-27 08:48] LABS: Blood Urea Nitrogen 12 mg/dl (9-20); Calcium 8.9 mg/dl (8.4-10.2); Carbon Dioxide 21 mmol/L (22-30); Chloride 106 mmol/L (98-107); Estimated Creatinine Clearance 92 ml/min; Glucose 93 mg/dl (70-99); Potassium 3.8 mmol/L (3.5-5.1); Sodium 139 mmol/L (135-145); eGFR > 60.00
[2024-10-27 11:13] VITALS: BMI 23.5
--- NOTE | 2024-10-27 12:17 | W.PN.ONC2 ---
Today's Communication / Plan
-
.
Impression
Impression
melanoma, metastatic to lung (per records), last dose of immunotherapy (opdualag) in Jul 2024, [facility]
confusion
diarrhea
CT with colitis
h/o immune toxicities - joint pain, myositis, adrenal insufficiency, colitis
anemia -Hgb trending down from >11g/dL in Jul 2024. Celiac panel April 2024 negative. hemolysis unlikely with normal retic and LFTs. No role for iron repletion with ferritin >150. No B12 or folate deficiency
Plan
Plan
Clinical picture is complicated, but no significant findings to suggest acute immunotherapy toxicity is to blame
Diarrhea seems chronic and not suggestive of acute colitis from immunotherapy
Mental status may be related to other medications, h/o alcohol abuse, infection -Would consider neurology evaluation
Imaging (CXR, head CT, CT A/P) does not show obvious melanoma at this time. He could be in remission from immunotherapy. In that case, prognosis from a melanoma standpoint is good.
check heme stool, monitor for bleeding
transfuse PRBC for Hgb <7 or as needed for sxs anemia. Has been on prolonged steroids for management of ICI toxicities. check heme stool -GI following
f/u at [facility] w/Dr. Lauri Perales
Subjective/Objective
Subjective
no new complaints
Vital Signs:
Vital Signs
Temp Pulse Resp BP Pulse Ox
97.7 F 73 18 146/80 96
10/27/24 07:03 10/27/24 07:03 10/27/24 07:03 10/27/24 07:03 10/27/24 07:03
Lab Results:
Laboratory Data
WBC 12.0 10^3/uL (4.8-10.8) H 10/27/24 06:15
Hgb 10.7 g/dL (13.0-18.0) L D 10/27/24 06:15
Plt Count 579 10^3/uL (130-400) H 10/27/24 06:15
eGFR > 60.00 10/27/24 06:15
Physical Exam
HEENT: Moist Mucous Membranes; No Jaundice
Cardiology: Normal Sinus Rhythm
Pulmonary: Clear
GI: Soft
Extremities: Pulses Present
--- NOTE | 2024-10-27 15:03 | CM ---
Patient for discharge back to [facility]. Patient seen at bedside in room with physicians. Patient completed IMM and signed form placed on chart. Patient for ambulance transportation, ambulance forms tubed to [facility] earlier today. Please call
report to [phone]/fax [phone]. CM will continue to follow for discharge planning needs.
Plan; return to SNF; [facility].
[2024-10-27 15:30] VITALS: BP 123/74
--- NOTE | 2024-10-27 16:25 | PTCARENOTE ---
Pt AAO x3, sl forgetful at times. FRITZ well,OOB in chair; ambulatory to BR/in [place] with assist x1/walker, preeti well, no c/o weakness/dizziness. VSS. On room air- pulseox 99%, no SOB noted. Abd large, soft, preeti PO well. Voids in urinal/BR without
difficulty. Resting in bed at present, no c/o. Awaiting transfer to [facility].
[2024-10-27] MEDS: CORTEF 10 MG PO (17:32)
[2024-10-27] MEDS: LOVENOX SC (18:27)
--- NOTE | 2024-10-28 19:25 | W.DCSUMMARY ---
Addendum entered and electronically signed by Carolyn Blancas MD 10/29/24 06:59:
Read, reviewed, and agree. See same day progress note for additional details. Time spent coordinating care, DC planning, review of DC plan of care with resident, transition of care, review of records in EMR, med rec, consults, notes, d/w
consultants, nursing, family, and CM = 37 minutes
Original Note:
Discharge Summary
Discharge Data
Date of Admission: 10/23/24
Date of Discharge: 10/27/24
-
Pending Results: No
Hospital Course
Discharging Physician : Roseline Lowe MD., Carolyn Blancas MD.
Disposition : SNF
Primary care physician : Daryl Gibson MD.
Principal Discharge diagnosis : Adrenal insufficiency, diarrhea, thrombocytosis, polyarthritis
Chronic Discharge diagnosis : Hypothyroidism, chronic headaches, diarrhea, COPD, GERD, essential hypertension, melanoma with lung metastasis, alcohol use disorder, peripheral neuropathy, chronic anemia, chronic headaches, nephrolithiasis
Hospital Course :
HPI 10/23/24:
72 year old male with the above past medical history was brought in by a friend from [facility] for confusion. Pt reports feeling absent minded, disoriented and hallucinating (people, places) within the past few days. He also complains of
alternating diarrhea/constipation, pain in multiple joints including cervical neck, bilateral shoulders, elbows, knees and wrists. Denied fever, sinus pressure, chest pain, abdominal pain, or N/V. He has no implantable devices or joint replacements.
He had multiple recent admissions in the past 3 months, with the most recent a 4-day admission from 10/06 for PNA, TME, and chronic hematoma, treated with cefdinir and doxycycline. He was unsure of the medications he was on. History was somewhat
disjointed and tangential, but he was aware of his confusion and mostly could be reoriented back to conversation.
On the day he arrived, he was noted to have elevated HR, leukocytosis and fever. Other vitals remained stable. He was hyponatremic with hyperkalemia, and there was significant thrombocytosis with plts 600s, and anemia with hgb 8.4.
Patient met SIRS criteria with no clear source. There was concern for infection given fever. Diffuse joint pain was likely reactive but endocarditis was considered. Blood cultures were drawn. He was negative for flu and covid. Vancomycin and Zosyn
were initially started but vancomycin was discontinued after MRSA screen was negative. CXR was negative for PNA, urinalysis unremarkable, lactate normal, uric acid normal, and blood cultures were negative. He was also started on stress dose steroids
on arrival with 50 mg hydrocortisone 3 times daily. Echo showed no vegetation and Lyme screen was negative. Given negative infectious tests, SIRS diagnosis was presumed likely from adrenal insufficiency. He had recently been underreplaced by
taking 10 mg of hydrocortisone daily only. Antibiotics were discontinued with continuous improvement in symptoms and no recurrence of fever. He was eventually transitioned from stress dose to physiologic dosing of hydrocortisone 20 mg p.o. a.m.,
and 10 mg p.o. p.m.
Head CT was negative for acute processes and encephalopathy continued to improve, presumed to be likely TME secondary to medication side effect. Electrolyte abnormality resolved with IVF and stress dose steroids.
Chronic diarrhea was thought to be medication side effect from prior immunotherapy which was discontinued about 2 months ago. Stool studies were negative. He was started on probiotics with some noted improvement
Thrombocytosis was thought to be reactive but as this did not completely resolved during stay, he should follow-up with outpatient resin filterer-oncologist.
Chronic anemia with iron studies indicative of anemia of chronic disease. Hemoglobin steadily dropped, likely due to dilutional effects from IVF, and no active bleeding was noted throughout stay. He received 2 units of PRBCs when Hgb dropped to
6.9, and hgb promptly improved to 10.7.
All home medications were continued/held as appropriate while admitted. He continued to improve throughout stay and was deemed stable for discharge to SNF with the following recommendations:
-follow up at [facility] w/Dr. Lauri Perales
-elevated TSH, follow up with PCP shortly
-continue to take hydrocortisone, 20mg in the morning and 10 mg in the evening.
Important imaging findings :
Chest x-ray 10/19/2024:
No radiographic evidence of acute cardiopulmonary abnormality.
Head CT without IV contrast 10/23/2024:
No acute intracranial abnormality.
Severe paranasal sinus disease within the ethmoid air cells and partially imaged maxillary sinuses.
CT abdomen/pelvis with IV and oral contrast 10/19/2024:
Suspected mild sigmoid wall thickening, possibly representing acute colitis.
Trace hyperdensity dependently in in the rectum may be due to oral contrast. Active GI bleed less likely.
Scrotum incompletely included on this study with likely right hydrocele.
Echocardiogram 10/24/2024:
Normal left ventricular size, wall thickness and systolic function.
LV ejection fraction is 56% by volumetric assessment.
Normal right ventricular size and function.
Severe eccentric mitral regurgitation.
No aortic regurgitation is seen.
Right heart pressures could not be determined.
Structurally normal tricuspid valve without significant stenosis or
regurgitation.
Normal pericardium without effusion.
Mildly dilated aortic root.
Sinus of Valsalva measures 3.6 cm.
The IVC is of normal size and demonstrates normal respiratory variation.
Mitral regurgitation is stable but remains severe compared to 03/09/24
echocardiogram
Discharge Plan
-
Patient Disposition: Longterm/SNF
Discharge Diagnosis/Procedures: Adrenal insufficiency, diarrhea, thrombocytosis, polyarthritis
Condition: Good
Diet: Low Sodium
Activity: As tolerated
Driving Restrictions: No driving
Bathing Restrictions: None
Referrals:
Daryl Gibson MD [Family Provider] - in less than 1 week
Additional Discharge Medication Instructions: follow up at [facility] w/Dr. Lauri Perales
Elevated TSH, follow up with PCP
Continue to take hydrocortisone, 20mg in the morning and 10 mg in the evening
Prescriptions:
New
hydrocortisone 10 mg Tablet
10 mg PO QPM 30 Days Qty: 30 0RF
Rx Instructions:
DO NOT TAPER THIS MEDICATION
hydrocortisone 10 mg Tablet
20 mg PO DAILY 30 Days Qty: 60 0RF
Rx Instructions:
DO NOT TAPER THIS MEDICATION
Lactobac/Bifidobac [Visbiome]
2 cap PO DAILY 30 Days 0RF
Continued
pantoprazole [Protonix] 40 mg Tablet,Delayed Release (Dr/Ec)
40 mg PO DAILY
hydrocortisone 10 mg Tablet
10 mg PO DAILY
Anoro Ellipta 62.5-25 mcg/actuation Blister With Device
1 inh INHALATION R DAILY
cholecalciferol (vitamin D3) [Vitamin D3] 25 mcg (1,000 unit) Tablet
25 mcg PO DAILY
atorvastatin 40 mg Tablet
40 mg PO HS
cyanocobalamin (vitamin B-12) 1,000 mcg Tablet
1,000 mcg PO DAILY
albuterol sulfate 90 mcg/actuation Hfa Aerosol Inhaler
2 puff INHALATION R Q4HPRN PRN (Reason: sob)
carvedilol [Coreg] 3.125 mg Tablet
3.125 mg PO BID
polyethylene glycol 3350 17 gram powder in packet
17 g PO DAILYPRN PRN (Reason: constipation)
famotidine 20 mg tablet
20 mg PO BID
levothyroxine 150 mcg tablet
150 mcg PO DAILY@0600
Refresh Classic (PF) 1.4-0.6 % dropperette
1 drops BOTH EYES QID
furosemide [Lasix] 40 mg tablet
20 mg PO DAILY Qty: 0 0RF
Rx Instructions:
Hold for SBP<105
loperamide 2 mg Tablet
2 mg PO Q4HPRN PRN (Reason: diarrhea)
thiamine HCl (vitamin B1) 100 mg Tablet
100 mg PO DAILY
magnesium hydroxide [Milk of Magnesia] 400 mg/5 mL Suspension
2,400 mg PO [id number] PRN (Reason: no bm x3 days)
magnesium oxide 250 mg magnesium Tablet
500 mg PO BID
potassium chloride 20 mEq Tablet Extended Release
40 meq PO DAILY
fluticasone furoate 100 mcg/actuation Blister With Device
1 inh INHALATION R DAILY
magnesium oxide 400 mg magnesium Tablet
400 mg PO DAILY
gabapentin 400 mg Capsule
400 mg PO TID Qty: 90 0RF
oxycodone 5 mg Tablet
5 mg PO Q4HPRN PRN (Reason: moderate-severe pain) Qty: 10 0RF
Patient Comments:
10/23/24: for 14 days from 10/10/24-10/24/24
amitriptyline 10 mg Tablet
30 mg PO HS Qty: 0 0RF
acetaminophen 325 mg Tablet
650 mg PO Q6HPRN PRN (Reason: mild pain)
Discharge Orders:
Discharge Patient (As Directed); Ordered 10/27/24
Ordered By: Roseline Lowe
Discharge Date and Time
Discharge Date/Time: 10/27/24 18:53
Print Language: PUERTO RICAN
== END 2024-10-27 18:53 | DRG 643 ==
LOC: 4 EAST ACU 19:46
PROVIDERS: Emergency Medicine; Student in an Organized Health Care Education/Training Program; ADMITTING PHYSICIAN Internal Medicine; CONSULT PHYSICIAN Internal Medicine Hematology & Oncology; EMERGENCY PHYSICIAN Emergency Medicine; FAMILY PHYSICIAN Internal Medicine; OTHER PHYSICIAN Internal Medicine Gastroenterology; OTHER PHYSICIAN Internal Medicine Infectious Disease; OTHER PHYSICIAN Psychiatry & Neurology Psychiatry
PROC: 30233N1 Transfusion of Nonautologous Red Blood Cells into Peripheral Vein, Percutaneous Approach (ICD-10-PCS; 2024-10-26)
DX: E27.40 Unspecified adrenocortical insufficiency (principal); G92.8 Other toxic encephalopathy; C78.00 Secondary malignant neoplasm of unspecified lung; I50.30 Unspecified diastolic (congestive) heart failure; J44.0 Chronic obstructive pulmonary disease with (acute) lower respiratory infection; E87.1 Hypo-osmolality and hyponatremia; R65.10 Systemic inflammatory response syndrome (SIRS) of non-infectious origin without acute organ dysfunction; F17.200 Nicotine dependence, unspecified, uncomplicated; E03.9 Hypothyroidism, unspecified; E78.00 Pure hypercholesterolemia, unspecified; I11.0 Hypertensive heart disease with heart failure; I25.10 Atherosclerotic heart disease of native coronary artery without angina pectoris; K21.9 Gastro-esophageal reflux disease without esophagitis; G62.9 Polyneuropathy, unspecified; C43.9 Malignant melanoma of skin, unspecified; F41.1 Generalized anxiety disorder; D75.839 Thrombocytosis, unspecified; D63.8 Anemia in other chronic diseases classified elsewhere; E87.5 Hyperkalemia; M13.0 Polyarthritis, unspecified; R44.1 Visual hallucinations; N43.3 Hydrocele, unspecified; I34.0 Nonrheumatic mitral (valve) insufficiency; I77.810 Thoracic aortic ectasia; R19.7 Diarrhea, unspecified; R51.9 Headache, unspecified; K80.20 Calculus of gallbladder without cholecystitis without obstruction; F10.11 Alcohol abuse, in remission; G89.29 Other chronic pain; Z90.2 Acquired absence of lung [part of]; Z87.01 Personal history of pneumonia (recurrent); Z87.442 Personal history of urinary calculi; Z79.890 Hormone replacement therapy; Z79.52 Long term (current) use of systemic steroids; Z79.891 Long term (current) use of opiate analgesic; Z86.0101 Personal history of adenomatous and serrated colon polyps; Z11.52 Encounter for screening for COVID-19; Z92.21 Personal history of antineoplastic chemotherapy
CPT/HCPCS: 70450; 71046; 74177; 80048; 80053; 81003; 81015; 82533; 82607; 82728; 82746; 83540; 83550; 83605; 83735; 83930; 83935; 84100; 84300; 84439; 84443; 84550; 85025; 85027; 85045; 86618; 86850; 86900; 86901; 86920; 87040; 87045; 87046; 87070; 87324; 87427; 87449; 87502; 87798; 87811; 93306; 94640; 96374; 96375; 97163; 97167; 99285; P9016; Q9967

== ENCOUNTER 2024-11-29 15:31 | Emergency (ER) | payer MEDICARE, OTHER, SELFPAY ==
[2024-11-29 15:33] VITALS: BP 96/61; BMI 22.7
[2024-11-29 15:53] LABS: % Basophils 0.2 % (0-2); % Eosinophils 0.5 % (0-6); % Immature Granulocytes 1.2 % (0-0.5); % Lymphocytes 12.7 % (20.5-51.1); % Monocytes 9.9 % (1.7-9.3); % Neutrophils 75.5 % (42.2-75.2); Absolute Eosinophils 0.1 10^3/uL (0-0.7); Absolute Immature Granulocytes 0.2 10^3/uL (0-0.05); Absolute Lymphocytes 2.2 10^3/uL (1.2-3.4); Absolute Monocytes 1.7 10^3/uL (0.1-0.6); Absolute Neutrophils 12.9 10^3/uL (1.4-6.5); Hematocrit 34.4 % (39.0-52.0); Hemoglobin 10.9 g/dL (13.0-18.0); Mean Corp Hgb Conc. 31.7 g/dL (33.0-37.0); Mean Corpuscular Hgb 26.7 pg (27.0-31.0); Mean Corpuscular Volume 84.3 fL (80.0-94.0); Mean Platelet Volume 8.4 fL (7.4-10.4); Nucleated Red Blood Cells % 0 % (-); Platelet Count 531 10^3/uL (130-400); Red Blood Cell Count 4.08 10^6/uL (4.70-6.10); Red Cell Dist. Width 17.4 % (11.5-14.5); White Blood Cell Count 17.1 10^3/uL (4.8-10.8)
[2024-11-29 16:00] VITALS: BP 92/58
--- NOTE | 2024-11-29 16:00 | ED.GENMED ---
History of Present Illness
General
Chief Complaint: Musculo-Skeletal Complaint
Source: patient and ambulance crew
Exam Limitations: none
Time Seen by Provider: 11/29/24 15:57
Nursing documentation reviewed up to this point in time: agreed with
History of Present Illness
History of Present Illness:
74-year-old male presents emergency department due to midline neck pain that began this morning and radiates down bilateral arms. He notes he has had swelling in both his hands over the past several days. He denies any chest pain or shortness of
breath.
Past History
Past History
ED Past Medical History: CAD, Cancer (Melanoma with mets to lung), COPD, GERD, HTN, Hypercholesterolemia, Hypothyroidism, Psychiatric ([facility]) and Other (Alcohol abuse/tobacco abuse, PNA, chronic headaches, peripheral neuropathy, nephrolithiasis)
ED Past Surgical History: Other (hernia)
Social History
Tobacco: Smoker
Alcohol: Chronic alcoholic
Drug: None
Personal:
Living: penitentiary
Employment: Retired
Family History
Family History: Other (Reviewed and noncontributory)
Review of Systems
Review of Systems
Allergies reviewed?: Yes
All Other Systems: Not applicable
Constitutional: Reports no symptoms
EENT: Reports no symptoms
Respiratory: Reports no symptoms
Cardiac: Reports no symptoms
ABD/GI: Reports no symptoms
: Reports no symptoms
Musculoskeletal: Reports neck pain
Skin: Reports no symptoms
Neurological: Reports no symptoms
Endocrine: Reports no symptoms
Hematologic/Lymphatic: Reports no symptoms
Psychiatric: Reports no symptoms
Phy Exam
Physical Exam
Physical Exam:
Physical Exam
General: no apparent distress, not acutely ill
Neck: supple. no meningeal signs. normal posterior pharynx
Heart: s1/s2 regular rate and rhythm, no murmur. equal radial
pulses.
HEENT: Pupils equal round reactive to light, EOMI, systolic midline bony tenderness throughout cervical spine
Lungs: no acute respiratory distress. clear bilaterally
Abdomen: normal bowel sounds. not tender. no CVAT
Neuro: alert and oriented. no focal neurological deficits cranial nerves II through XII intact
Skin: no rash
Psychiatric: well kept. interactive and cooperative
Extremities: Bilateral hand edema. no calf tenderness. negative homans. good distal pulses
Course
Orders/Labs/Results
Orders:
Orders
11/29/24 15:37
Electrocardiogram (*1) Urgent
Reason for Study: Chest Pain
EKG- Treatment ONCE
11/29/24 15:38
Complete Blood Count/With Diff Urgent
Comprehensive Metabolic Panel Urgent
Troponin I Urgent
11/29/24 16:12
CT Neck Angio W/wo Iv Contrast Urgent
Comment:
Reason For Exam: neck pain radiating bilateral arms
IV Insert/Care/Rem.- Treatment PRN
0.9% Sodium Chloride 500 ml [Nss] 500 ml IV BOLUS
US Periph Venous UPPER Ext Sin Urgent
Comment:
Reason For Exam: bilateral arm swelling
11/29/24 19:51
Amoxicillin 875 mg/Clav 125 mg [Augmentin 875 mg/125 mg] 1 tablet PO NOW STA
Ketorolac [Toradol] 15 mg IV NOW STA
Abnormal Lab Results
11/29/24
15:38
WBC 17.1 H 10^3/uL
(4.8-10.8)
RBC 4.08 L 10^6/uL
(4.70-6.10)
Hgb 10.9 L g/dL
(13.0-18.0)
Hct 34.4 L %
(39.0-52.0)
MCH 26.7 L pg
(27.0-31.0)
MCHC 31.7 L g/dL
(33.0-37.0)
RDW 17.4 H %
(11.5-14.5)
Plt Count 531 H 10^3/uL
(130-400)
Abs Immat Gran (auto) 0.2 H 10^3/uL
(0-0.05)
Absolute Neuts (auto) 12.9 H 10^3/uL
(1.4-6.5)
Absolute Monos (auto) 1.7 H 10^3/uL
(0.1-0.6)
Immature Gran % 1.2 H %
(0-0.5)
Neutrophils % 75.5 H %
(42.2-75.2)
Lymphocytes % 12.7 L %
(20.5-51.1)
Monocytes % 9.9 H %
(1.7-9.3)
Glucose 166 H mg/dl
(70-99)
AST 16 L U/L
(17-59)
Total Protein 5.9 L g/dl
(6.3-8.2)
11/29/24 15:38
11/29/24 15:38
Vital Signs
Initial and Last Documented VS:
Initial Vital Signs
Temp Pulse Resp BP Pulse Ox
99 F 94 24 96/61 93
11/29/24 15:33 11/29/24 15:33 11/29/24 15:33 11/29/24 15:33 11/29/24 15:33
Last Documented Vital Signs
Temp Pulse Resp BP Pulse Ox
98.1 F 92 14 133/63 91
11/29/24 19:07 11/29/24 18:00 11/29/24 18:00 11/29/24 18:00 11/29/24 17:33
MDM/Problems Addressed
Differential Diagnosis Includes:
DVT, cervical radiculopathy, vertebral artery dissection
MDM/Problems Addressed:
74-year-old male with cervical radiculopathy, no signs of CVA. Sinusitis. Lungs clear. Unclear leukocytosis. Signs of sepsis. Stable for discharge. Follow-up with primary care.
Chronic conditions affecting care: COPD
*Radiology
Radiology exam reviewed: radiology read reviewed (CT angiography neck shows chronic degenerative changes, bases cyst right mandible, ultrasound bilateral upper extremities no signs of DVT)
*Pulse Oximetry
Patient hypoxic: no
*EKG
Interpreted by ED Provider?: Yes
EKG Intrepretation Date: 11/29/24
EKG Intrepretation Time: 15:42
Interpretation: normal
Comparison EKG: changes noted
Heart Rate: 94
Rate: normal
Rhythm: sinus
[place]: normal axis
Interval: normal interval
QRS Pattern: normal QRS
Ischemia: no ischemia
*Workers Compensation Claims Supervisor Interpretation
Rate: normal
Interpretation: normal
Heart Rate: 90
Rhythm: sinus
*Critical Care Note
Total Time (30-74mins, 75-104mins- exclusive of procedures): Not Applicable
Data Reviewed
Review of Other/Old Records Reveals: Labs
Source: records
Patient Management
Social determinants of health affecting care: Living situation and Strong social support
Escalation/DeEscalation of care consider admission/obs:
Admit not indicated
ED Attending Note
-
Portions of this chart may have been created with voice recognition software.� Occasional wrong word or��sound alike� substitutions may have occurred due to the inherent limitations of voice recognition software.
Discharge Plan
Departure
Patient Disposition: Assisted/SNF
Date of Disposition: 11/29/24
Time of Disposition: 19:55
Patient with high blood pressure during this ER visit?: Yes
Condition: Good
Discharge Problem:
Cervical radiculopathy, Sinusitis, acute
Instructions: Sinusitis in adults, Radiculopathy of the neck and back (including sciatica)
Prescriptions:
New
amoxicillin-pot clavulanate 875-125 mg tablet
1 tab PO BID Qty: 14 0RF
gabapentin 300 mg capsule
300 mg PO TID PRN (Reason: neck/arm pain) Qty: 30 0RF
No Action
cholecalciferol (vitamin D3) [Vitamin D3] 25 mcg (1,000 unit) Tablet
25 mcg PO DAILY
atorvastatin 40 mg Tablet
40 mg PO HS
cyanocobalamin (vitamin B-12) 1,000 mcg Tablet
1,000 mcg PO DAILY
albuterol sulfate 90 mcg/actuation Hfa Aerosol Inhaler
2 puff INHALATION R Q4HPRN PRN (Reason: sob)
carvedilol [Coreg] 3.125 mg Tablet
3.125 mg PO BID
famotidine 20 mg tablet
20 mg PO BID
levothyroxine 150 mcg tablet
150 mcg PO DAILY
Refresh Classic (PF) 1.4-0.6 % dropperette
1 drops BOTH EYES QID
loperamide 2 mg Tablet
2 mg PO Q4HPRN PRN (Reason: diarrhea)
thiamine HCl (vitamin B1) 100 mg Tablet
100 mg PO DAILY
magnesium hydroxide [Milk of Magnesia] 400 mg/5 mL Suspension
30 ml PO HSPRN PRN (Reason: no BM in 3 days)
magnesium oxide 250 mg magnesium Tablet
500 mg PO BID
gabapentin 400 mg Capsule
400 mg PO TID Qty: 90 0RF
oxycodone 5 mg Tablet
5 mg PO Q4HPRN PRN (Reason: moderate-severe pain) Qty: 10 0RF
acetaminophen 325 mg Tablet
650 mg PO Q6HPRN MDD 3000mg PRN (Reason: mild pain)
pantoprazole 40 mg Tablet,Delayed Release (Dr/Ec)
40 mg PO DAILY
Visbiome 112.5 billion cell Capsule
1 cap PO BID
potassium chloride 20 mEq Tablet,Er Particles/Crystals
40 meq PO DAILY
furosemide [Lasix] 20 mg Tablet
20 mg PO DAILY
Rx Instructions:
hold for SBP <105
polyethylene glycol 3350 17 gram/dose Powder
17 g PO DAILYPRN PRN (Reason: constipation)
magnesium oxide 400 mg magnesium Capsule
400 mg PO DAILY
umeclidinium-vilanterol 62.5-25 mcg/actuation Blister With Device
1 inh INHALATION R DAILY
fluticasone furoate 100 mcg/actuation Blister With Device
1 inh INHALATION R DAILY
amitriptyline 10 mg tablet
30 mg PO HS
hydrocortisone 10 mg tablet
20 mg PO DAILY
hydrocortisone 10 mg tablet
10 mg PO QPM
Referrals:
Daryl Gibson MD [Family Provider] - Call in 1-3 days for appt
Interventions
Interventions:
*Risk Screen - Suicide Last Done: 11/29/24 15:37
*General Assessment Last Done: 11/29/24 15:37
*Neglect/Abuse Screening Last Done: 11/29/24 15:37
*ED- Fall Risk Assessment Last Done: 11/29/24 15:37
*ED COVID-19 Vaccine History Last Done: 11/29/24 15:37
ED-Musculoskeletal Assessment Last Done: 11/29/24 19:07
Discharge Date and Time
Print Language: SLOVAK
[2024-11-29 16:12] LABS: Troponin I < 0.012 ng/ml
[2024-11-29 16:30] LABS: ALT (SGPT) 10 U/L (0-50); AST (SGOT) 16 U/L (17-59); Albumin 3.5 g/dl (3.5-5.0); Alkaline Phosphatase 79 U/L (38-126); Blood Urea Nitrogen 15 mg/dl (9-20); Calcium 9.5 mg/dl (8.4-10.2); Carbon Dioxide 27 mmol/L (22-30); Chloride 102 mmol/L (98-107); Estimated Creatinine Clearance 91 ml/min; Glucose 166 mg/dl (70-99); Potassium 4.5 mmol/L (3.5-5.1); Sodium 137 mmol/L (135-145); Total Bilirubin 0.5 mg/dl (0.2-1.3); Total Protein 5.9 g/dl (6.3-8.2); eGFR > 60.00
[2024-11-29] MEDS: NSS 500 IV (17:30)
[2024-11-29 17:33] VITALS: BP 113/56
[2024-11-29 18:00] VITALS: BP 133/63
[2024-11-29 19:00] VITALS: BP 141/59
[2024-11-29 20:00] VITALS: BP 127/70
[2024-11-29] MEDS: TORADOL 15 MG IV (20:01)
[2024-11-29] MEDS: AUGMENTIN 875 MG/125 MG 1 TABLET PO (20:01)
== END 2024-11-29 21:06 ==
LOC: EMR 15:31
PROVIDERS: EMERGENCY PHYSICIAN Emergency Medicine; FAMILY PHYSICIAN Internal Medicine
DX: M47.22 Other spondylosis with radiculopathy, cervical region (principal); J01.90 Acute sinusitis, unspecified; R22.33 Localized swelling, mass and lump, upper limb, bilateral; I25.10 Atherosclerotic heart disease of native coronary artery without angina pectoris; J44.9 Chronic obstructive pulmonary disease, unspecified; K21.9 Gastro-esophageal reflux disease without esophagitis; I10 Essential (primary) hypertension; E78.00 Pure hypercholesterolemia, unspecified; E03.9 Hypothyroidism, unspecified; F41.1 Generalized anxiety disorder; G62.9 Polyneuropathy, unspecified; F17.200 Nicotine dependence, unspecified, uncomplicated; Z85.820 Personal history of malignant melanoma of skin; Z87.442 Personal history of urinary calculi
CPT/HCPCS: 99284; 96374; 70498; 80053; 84484; 85025; 93005; 93970; Q9967